=== PATIENT | male | born 1960 | race Caucasian/White ===

== ENCOUNTER 2017-06-24 08:05 | Emergency (ER) | payer MEDICAID, SELFPAY ==
[2017-06-24 08:05] VITALS: BP 159/90; PULSE 99; RESP 16; TEMP 36.7; O2SAT 95; BMI 23.1
--- NOTE | 2017-06-24 08:15 | RAD_ITS ---
STUDY: X-RAY - RIGHT FOOT CLINICAL: Male, 56 years old. Top of foot pain status post trauma. TECHNIQUE: 3 view(s) of the foot. COMPARISON: None. FINDINGS: Normal talus, calcaneus, and tarsal bones. Normal visualized subtalar, talonavicular, calcaneocuboid, tarsal and tarsometatarsal articulations. Normal metatarsi. Normal metatarsophalangeal joint of the great toe. Normal tibial and fibular sesamoid bones. Normal interphalangeal joint of the great toe. Normal phalanges of the great toe. Normal second through fifth metatarsophalangeal joints. Normal interphalangeal joints and phalanges of the lesser toes. The soft tissue structures are unremarkable. RAD/Foot min 3 Views IMPRESSION: Normal x-ray examination of the foot. Electronically Signed: Kali Oleary MD at 8:38 EDT , Service support ,
--- NOTE | 2017-06-24 08:52 | ED.DCSUM_ITS ---
- ER Visit Summary Date of Service: 06/24/17 Chief Complaint: [Injury to right foot] History of Present Illness: The patient is a 56 M [presents to the emergency department after injuring his right foot 3 days ago. Patient states that he was moving a piece of steel in his garage when he dropped it onto his right foot. Patient was wearing tennis shoes at the time and believes the piece of steel weighed about 25 pounds. Patient's had discomfort since that time but today try to go to work and had more discomfort so he presents the emergency department. Patient states that his noticed that the foot was getting red yesterday. Patient's had no fevers.] Physical Examination: [Right foot-patient has some soft tissue swelling diffusely. Patient has an area of skin avulsion/abrasion over the dorsum of the right lateral foot measuring approximately 3 x 5 cm. Patient has diffuse tenderness over the dorsal lateral aspect of the foot. Patient has faint erythema and cellulitis to the dorsum of the foot. Patient also has a superficial abrasion over the dorsum of the fifth toe. There is no lymphangitic streaking noted and the erythema seems to be localized to the foot at this time.] Test Results: [X-rays of the right foot obtained showed no fractures and no evidence of osteomyelitis. No foreign bodies noted in the foot.] Emergency Department Course and Treatment: [Patient was started on Keflex and Bactrim. Patient will be given crutches.] Treatment Plan: [Antibiotics and pain medicine. Patient advised to follow-up with his primary care physician for a wound check in 2-3 days. Patient advised to return if worsening pain increasing redness, fever, or condition should worsen in any way.] Disposition: [Discharged home in stable condition] Impression: [Contusion right foot Skin avulsion/abrasions right foot Cellulitis right foot] This note was generated with [employer] dictation software. It may contain incorrect words, spelling, and punctuation that were not noted in review of the chart prior to signing ED Disposition - Plan for ED Patient: Chief Complaint: Lower Extremity Injury Referrals: Alice Cuellar DO [Primary Care Provider] -
--- NOTE | 2017-06-24 08:52 | ED.DEP ---
ED Disposition - Plan for ED Patient: Chief Complaint: Lower Extremity Injury Instructions: ED Contusion Foot, ED Infec Skin Cellulitis, ED Avulsion Dermal Prescriptions: Hydrocodone Bitart/Apap 5-325 [Hundred 5/325] 1 - 2 tab PO Q4H PRN PRN 3 Days #12 tab PRN Reason: Pain Cephalexin [Keflex] 500 mg PO Q6 #40 cap Smz/Tmp Ds [Bactrim Ds] 2 tab PO BID #28 tab Referrals: Alice Cuellar DO [Primary Care Provider] - 2 Days for wound check
[2017-06-24] MEDS: Cephalexin 250 MG Capsule 500 MG PO (08:55)
[2017-06-24] MEDS: Smz/Tmp Ds Tablet 1 TABLET PO (08:55)
--- NOTE | 2017-06-24 08:55 | DCINST.ED_ITS ---
ED Disposition - Plan for ED Patient: Chief Complaint: Lower Extremity Injury Instructions: ED Contusion Foot, ED Infec Skin Cellulitis, ED Avulsion Dermal Prescriptions: Hydrocodone Bitart/Apap 5-325 [[place] 5/325] 1 - 2 tab PO Q4H PRN PRN 3 Days #12 tab PRN Reason: Pain Cephalexin [Keflex] 500 mg PO Q6 #40 cap Smz/Tmp Ds [Bactrim Ds] 2 tab PO BID #28 tab Referrals: Alice Cuellar DO [Primary Care Provider] - 2 Days for wound check
[2017-06-24] MEDS: Diphth,Pertuss(Acell),Tet Vac 0.5 ML Vial IM (09:03)
== END 2017-06-24 09:35 | disposition home or self-care (01) ==
PROVIDERS: Emergency Provider Emergency Medicine; Family Provider Family Medicine; PCP Family Medicine
DX: S90.31XA Contusion of right foot, initial encounter (principal); L03.115 Cellulitis of right lower limb; W20.8XXA Other cause of strike by thrown, projected or falling object, initial encounter; Y93.89 Activity, other specified; Y92.015 Private garage of single-family (private) house as the place of occurrence of the external cause; Y99.9 Unspecified external cause status; I10 Essential (primary) hypertension; I73.9 Peripheral vascular disease, unspecified; Z87.891 Personal history of nicotine dependence
CPT/HCPCS: 73630; 90715; 99284

== ENCOUNTER 2017-06-27 18:49 | Emergency (ER) | payer MEDICAID, SELFPAY ==
[2017-06-27 18:49] VITALS: BP 157/85; PULSE 83; RESP 16; TEMP 37.7; O2SAT 99; BMI 24.0
--- NOTE | 2017-06-27 19:00 | ED.VISSUMM ---
- ER Visit Summary Date of Service: 06/27/17 Chief Complaint: Evaluation of right foot injury with cellulitis History of Present Illness: The patient is a 56 M who was seen on June 24 for cellulitis dorsum of right foot secondary to skin avulsion. He presents because he was not able to get an appointment to see his PCP, Dr. Alice Cuellar. Therefore, he presents to the emergency department for reevaluation. He denies fever, chills night sweats. He denies progression of the erythema. He has no other complaints. Past medical history of peripheral vascular disease and hypertension. He is a former smoker. Physical Examination: Vital signs are noted. Afebrile. The erythema has improved since the . DP and PT pulses are not palpable. There is an eschar dorsal surface right foot. There is no lymphangitis. There is no popliteal angle lymphadenopathy. Test Results: None Emergency Department Course and Treatment: Patient was instructed to continue what he has been doing and the slight swelling of his foot is secondary to the fact that he is sitting more than normal. Recommended elevating his foot above the level of his heart. Treatment Plan: Continue antibiotics and wound care Disposition: Discharged to home Impression: 1. Skin avulsion dorsum right foot with cellulitis improving 2. History of peripheral vascular disease 3. History of hypertension This note was generated with [employer] dictation software. It may contain incorrect words, spelling, and punctuation that were not noted in review of the chart prior to signing ED Disposition - Plan for ED Patient: Disposition: Home or Assisted Living Chief Complaint: Lower Extremity Injury Instructions: ED Infec Skin Cellulitis, ED Avulsion Dermal Referrals: Alice Cuellar DO [Primary Care Provider] - 3-5 Days
[2017-06-27 19:10] VITALS: BP 143/87; PULSE 101; RESP 18; TEMP 37.2; O2SAT 98
== END 2017-06-27 19:11 | disposition home or self-care (01) ==
PROVIDERS: Emergency Provider Emergency Medicine; Family Provider Family Medicine; PCP Family Medicine
DX: L03.115 Cellulitis of right lower limb (principal); I73.9 Peripheral vascular disease, unspecified; I10 Essential (primary) hypertension; Z87.891 Personal history of nicotine dependence
CPT/HCPCS: 99282

== ENCOUNTER 2018-03-02 13:44 | Emergency (ER) | payer BC, SELFPAY ==
[2018-03-02 13:45] VITALS: BP 143/79; PULSE 108; RESP 14; TEMP 36.7; O2SAT 99; BMI 24.5
--- NOTE | 2018-03-02 13:57 | EKG12_ITS ---
Test Reason : GI BLEED Blood Pressure : / mmHG Vent. Rate : 099 BPM Atrial Rate : 099 BPM P-R Int : 162 ms QRS Dur : 086 ms QT Int : 398 ms P-R-T Axes : 075 068 058 degrees QTc Int : 510 ms Normal sinus rhythm Prolonged QT Abnormal ECG Confirmed by AMANDA DAN, DEYANIRA ([id number]), news copy editor NIRANJAN BEE ([id number]) on 03/04/2018 1:40:59 PM Referred By: ZAIDA Confirmed By:DEYANIRA PATEL MD
[2018-03-02] MEDS: 0.9% Normal Saline 1,000 ML 999 ML IV (14:22)
[2018-03-02] MEDS: Ondansetron 4 MG/2 ML Vial IV ×2 (14:22→16:04)
[2018-03-02 14:29] LABS: Absolute Lymphocyte Count 0.53 X10^3/ul (0.83-4.51); Absolute Neutrophil Count 2.6 X10^3/uL (2.0-7.7); Basophil# 0.01 X10^3/uL; Basophil% 0.3 % (0-1); Differential Indicated SCAN CRITERIA MET; Hematocrit 35.3 % (40-54); Hemoglobin 11.9 g/dl (13.0-16.5); Lymphocyte # 0.53 X10^3/ul (4.0); Lymphocyte % 14.5 % (19-41); Mean Corp Hgb Conc 33.7 g/gl (32-36); Mean Corpuscular Hgb 32.4 pg (27.0-32.0); Mean Corpuscular Volume 96.2 fL (80-94); Monocyte# 0.48 X10^3/uL; Monocyte% 13.2 % (0-10); Neutrophil # 2.63 X10^3/uL (2.7-7.7); POSITIVE COUNT YES; POSITIVE DIFFERENTIAL YES; POSITIVE MORPHOLOGY YES; Platelet Count 43 K/mm3 (150-450); RBC Distribution Width CV 13.4 % (11.6-14.6); RBC Distribution Width SD 47.6 fl (35.1-43.9); Red Blood Count 3.67 M/mm3 (4.6-6.2); White Blood Count 3.7 K/mm3 (4.4-11.0)
--- NOTE | 2018-03-02 14:32 | ED.RN ---
DR TA NOTIFIED OF PLT RESULTS
--- NOTE | 2018-03-02 14:38 | ED.VISSUMM ---
- ER Visit Summary Date of Service: 03/02/18 Chief Complaint: GI bleed History of Present Illness: The patient is a 57 M with vomiting blood that started earlier this morning. He is a heavy drinker, has cirrhosis and low platelets, has a history of perforated ulcer. Patient presents with GI bleed. He is here with his family. He has some epigastric pain but no pain into his back. No lower abdominal pain no hematochezia. He feels slightly nauseated. Physical Examination: He appears chronically ill but does not appear in significant distress Slightly dry mucous membranes, no obvious facial deformity No C-spine tenderness supple neck. Regular rhythm, tachycardic, without any obvious murmurs Course lungs bilaterally speaking in full sentences without any obvious respiratory distress Abdomen soft with slight epigastric tenderness, no guarding or rebound. There is an old healed scar in his epigastric region. Moves all extremities without any difficulty or pain. Skin does not show any obvious rashes or lesions, no trauma. Alert oriented ?3 with no gross focal deficit Emergency Department Course and Treatment: Patient is found to have platelets of 43, he is not currently anemic, he will be transfused platelets. NG tube was ordered, Protonix was ordered, IV fluids were ordered. At this time he has a normal blood pressure and a hemoglobin that is normal. I discussed the patient with Dr. Magali Viveros and since this is an upper GI bleed and there is a possibility of variceal bleeds patient will be transferred since we have no GI coverage. Per patient request I called [facility]. Disposition: Plan is to transfer, his condition is critical Impression: Upper GI bleed Critical care time 30 minutes This note was generated with [employer] dictation software. It may contain incorrect words, spelling, and punctuation that were not noted in review of the chart prior to signing ED Disposition - Plan for ED Patient: Chief Complaint: GI Bleed Referrals: Alice Cuellar DO [Primary Care Provider] -
[2018-03-02 14:41] LABS: ALB/GLOB Ratio 0.8 RATIO (0.9-2.4); AST(SGOT) 128 U/L (15-37); Alanine Aminotransfer ALT/SGPT 61 U/L (16-61); Albumin, Serum 3.1 g/dL (3.2-5.0); Alkaline Phosphatase 90 U/L (45-117); Anion Gap 12 (5-15); BUN 16 mg/dL (7-18); BUN/Creat Ratio 29.4 RATIO (10-20); Calcium,Total 7.5 mg/dL (8.5-10.1); Chloride 106 mmol/L (98-107); Creatinine, Serum 0.54 mg/dL (0.70-1.30); EST Glomerular Filtration Rate 165 mL/min (>60); Est Glom Filt Rate - Afr Amer 199 mL/min (>60); Estimated Creatinine Clearance 160.75 ml/min; Globulin 3.7 g/dL (2.2-4.2); Glucose 117 mg/dL (74-106); Potassium 3.9 mmol/L (3.5-5.1); Protein, Total 6.8 g/dL (6.4-8.2); Sodium Level 140 mmol/L (136-145)
[2018-03-02 14:49] LABS: Platelet Estimate MKD DEC (ADEQ)
[2018-03-02] MEDS: Lidocaine 4% 5 ML Ampul 2 ML INHALATION (15:02)
[2018-03-02 15:03] VITALS: BP 152/78; PULSE 117; RESP 20; O2SAT 99
--- NOTE | 2018-03-02 15:09 | RAD_ITS ---
STUDY: X-RAY - ABDOMEN/PELVIS REASON FOR EXAM: Male, 57 years old. NG tube placement verification. TECHNIQUE: Single AP view of the abdomen / pelvis. COMPARISON: April 26, 2012 FINDINGS: NG tube present with the tip projecting into the left upper quadrant of the abdomen over the fundus of the stomach. There is an unremarkable bowel gas pattern. There is no demonstrated free abdominal air. The visualized liver, spleen and kidneys are grossly normal in size and morphology. Normal soft tissue structures. Normal visualized osseous structures. RAD/Abdomen Single View (Portable) IMPRESSION: Tip of NG tube projected over the fundus of stomach. Electronically Signed: Meño Blanco MD at 16:07 EST , Service support ,
[2018-03-02 15:55] VITALS: BP 149/71; PULSE 124; RESP 16; O2SAT 97
--- NOTE | 2018-03-02 16:00 | NURSING ---
CALLED LAURO JOAQUIN
[2018-03-02] MEDS: Morphine 4 MG/ML Syringe IV (16:04)
[2018-03-02] MEDS: Ceftriaxone 1 GM/50 ML BAG IV (16:06)
[2018-03-03 13:39] LABS: Pathologist Review Reviewed
== END 2018-03-02 16:29 | disposition home or self-care (01) ==
PROVIDERS: Emergency Provider Emergency Medicine; Family Provider Family Medicine; PCP Family Medicine
DX: K92.2 Gastrointestinal hemorrhage, unspecified (principal); R10.9 Unspecified abdominal pain; R11.0 Nausea; Z72.0 Tobacco use; K74.60 Unspecified cirrhosis of liver; D69.6 Thrombocytopenia, unspecified
CPT/HCPCS: 74018; 80053; 80320; 85025; 85730; 86850; 86900; 93005; 96361; 96365; 96375; 96376; 99285; J7030; J7050; A4216; G0480; J2405

== ENCOUNTER 2018-03-20 13:08 | Emergency (ER) | payer BC, SELFPAY ==
[2018-03-20 13:13] VITALS: BP 147/87; PULSE 87; RESP 20; TEMP 37.1; O2SAT 100; BMI 26.8
--- NOTE | 2018-03-20 13:25 | RAD_ITS ---
STUDY: X-RAY CHEST REASON FOR EXAM: Male, 57 years old. Shortness of breath and hemoptysis TECHNIQUE: Single AP portable view of the chest. COMPARISON: None. FINDINGS: The lungs are clear and expanded. There is no demonstrated pleural abnormality. Normal size heart. Normal mediastinum and kelly. Normal visualized pulmonary arteries. Normal visualized aortic arch and descending thoracic aorta. Normal visualized thoracic spine. Normal visualized ribs, clavicles, and shoulders. There is no demonstrated abnormality of the visualized soft tissue structures of the upper abdomen. RAD/Chest 1 View (Portable) IMPRESSION: Normal x-ray examination of the chest. Electronically Signed: Koby Philip DO at 13:47 EST Tel , Service support ,
--- NOTE | 2018-03-20 13:26 | ED.VISSUMM ---
- ER Visit Summary Date of Service: 03/20/18 Chief Complaint: [] Vomiting bright red blood, black tarry stools history of esophageal varices liver cirrhosis History of Present Illness: The patient is a 57 M [] the above history, he indicates he had upper GI bleeding the past from esophageal varices, he was admitted to [facility] a few weeks ago for the above he had what he describes a cautery procedure to control the bleeding he stayed in the hospital for about 2 weeks, he did well was discharged to local prison for a few days where he did well and he was discharged from that prison 2 days ago, today as he was sitting at home he simply began vomiting bright red blood he also notes he has been having dark tarry stools for the last 2 days, he is on iron supplementation, he continues to be quite nauseated no vomiting and he comes in for evaluation, he denies any history of SC PE or DVT he denies being on blood thinners, he does continue to drink alcohol which was the etiology of his cirrhosis but he states he drinks a very little bit he does not withdraw if he stops drinking he is not on aspirin or other blood thinners Physical Examination: [] 140/80 heart rate 80 General, no distress resting comfortably HEENT is generally unremarkable The neck is supple no adenopathy Cardiovascular, regular rate and rhythm Lungs, clear bilateral Abdomen, soft nontender Extremities, no clubbing cyanosis or edema Neurologic, awake alert answering questions appropriately moving all 4 extremities Indicates he is having black tarry stools Test Results: [] Emergency Department Course and Treatment: [] Given his history given his protracted repeated episode of vomiting bright red blood we began screening labs IV fluids, type and screen, he has been instructed that he likely requires transfer to [facility] for further subspecialty management there is a snowstorm currently affecting this region and rail director transfer is limited, we will be speaking with [employer] to see advisability of ground transportation as local paramedics [facility] are not providing transportation because of the above Patient screening labs are generally unremarkable, his current hemoglobin is 9.0 it had been 12.0 in our system last time, chest x-ray is unremarkable he remains hemodynamically stable, we did speak with the transfer line at [facility] they have accepted him in transfer, the local rail director ambulance services are able to transport the patient during this current time. But possibly not later so were trying to expedite his care related to whether, the patient and the agree to transfer Treatment Plan: [] Disposition: [] Transfer to [facility] Impression: [] GI bleed, history of bleeding from esophageal varices, history of alcohol-related cirrhosis This note was generated with [employer] dictation software. It may contain incorrect words, spelling, and punctuation that were not noted in review of the chart prior to signing ED Disposition - Plan for ED Patient: Chief Complaint: GI Bleed Referrals: Alice Cuellar DO [Primary Care Provider] -
[2018-03-20] MEDS: 0.9% Normal Saline 1,000 ML 1000 ML IV (13:29)
--- NOTE | 2018-03-20 13:29 | ED.DCSUM_ITS ---
- ER Visit Summary Date of Service: 03/20/18 Chief Complaint: [] Vomiting bright red blood, black tarry stools history of esophageal varices liver cirrhosis History of Present Illness: The patient is a 57 M [] the above history, he indicates he had upper GI bleeding the past from esophageal varices, he was admitted to [facility] a few weeks ago for the above he had what he describes a cautery procedure to control the bleeding he stayed in the hospital for about 2 weeks, he did well was discharged to local group home for a few days where he did well and he was discharged from that group home 2 days ago, today as he was sitting at home he simply began vomiting bright red blood he also notes he has been having dark tarry stools for the last 2 days, he is on iron supplementation, he continues to be quite nauseated no vomiting and he comes in for evaluation, he denies any history of SC PE or DVT he denies being on blood thinners, he does continue to drink alcohol which was the etiology of his cirrhosis but he states he drinks a very little bit he does not withdraw if he stops drinking he is not on aspirin or other blood thinners Physical Examination: [] 140/80 heart rate 80 General, no distress resting comfortably HEENT is generally unremarkable The neck is supple no adenopathy Cardiovascular, regular rate and rhythm Lungs, clear bilateral Abdomen, soft nontender Extremities, no clubbing cyanosis or edema Neurologic, awake alert answering questions appropriately moving all 4 extremities Indicates he is having black tarry stools Test Results: [] Emergency Department Course and Treatment: [] Given his history given his protracted repeated episode of vomiting bright red blood we began screening labs IV fluids, type and screen, he has been instructed that he likely requires transfer to [facility] for further subspecialty management there is a snowstorm currently affecting this region and conveyor feeder offbearer transfer is limited, we will be speaking with [employer] to see advisability of ground transportation as local paramedics [facility] are not providing transportation because of the above Patient screening labs are generally unremarkable, his current hemoglobin is 9.0 it had been 12.0 in our system last time, chest x-ray is unremarkable he remains hemodynamically stable, we did speak with the transfer line at [facility] they have accepted him in transfer, the local conveyor feeder offbearer ambulance services are able to transport the patient during this current time. But possibly not later so were trying to expedite his care related to whether, the patient and the agree to transfer Treatment Plan: [] Disposition: [] Transfer to [facility] Impression: [] GI bleed, history of bleeding from esophageal varices, history of alcohol-related cirrhosis This note was generated with [employer] dictation software. It may contain incorrect words, spelling, and punctuation that were not noted in review of the chart prior to signing ED Disposition - Plan for ED Patient: Chief Complaint: GI Bleed Referrals: Alice Cuellar DO [Primary Care Provider] -
[2018-03-20 13:44] LABS: Absolute Lymphocyte Count 0.93 X10^3/ul (0.83-4.51); Basophil# 0.02 X10^3/uL; Basophil% 0.4 % (0-1); Eosinophil# 0.01 X10^3/uL; Eosinophils% 0.2 % (0-5); Hematocrit 28.4 % (40-54); Lymphocyte # 0.93 X10^3/ul (4.0); Lymphocyte % 18.3 % (19-41); Mean Corp Hgb Conc 31.7 g/gl (32-36); Mean Corpuscular Volume 97.9 fL (80-94); Mean Platelet Vol. 10.3 fl (6.2-12.0); Monocyte# 1.16 X10^3/uL; Monocyte% 22.8 % (0-10); Neutrophil # 2.95 X10^3/uL (2.7-7.7); Neutrophil % 57.9 % (47-70); Platelet Count 87 K/mm3 (150-450); RBC Distribution Width SD 50.3 fl (35.1-43.9); White Blood Count 5.1 K/mm3 (4.4-11.0)
[2018-03-20 13:49] LABS: POSITIVE COUNT NO; POSITIVE DIFFERENTIAL NO; POSITIVE MORPHOLOGY NO
[2018-03-20] MEDS: Ondansetron 4 MG/2 ML Vial IV (13:50)
[2018-03-20 13:58] LABS: International Normalized Ratio 1.4; Prothrombin Time (Protime)PT. 17.6 SECONDS (11.7-14.9)
[2018-03-20 14:00] LABS: AST(SGOT) 33 U/L (15-37); Alanine Aminotransfer ALT/SGPT 29 U/L (16-61); Albumin, Serum 2.4 g/dL (3.2-5.0); Alkaline Phosphatase 64 U/L (45-117); Anion Gap 8 (5-15); BUN 17 mg/dL (7-18); BUN/Creat Ratio 27.2 RATIO (10-20); Bilirubin, Direct 0.19 mg/dL (0.00-0.30); Calcium,Total 7.3 mg/dL (8.5-10.1); Chloride 108 mmol/L (98-107); Creatinine, Serum 0.63 mg/dL (0.70-1.30); EST Glomerular Filtration Rate 140 mL/min (>60); Est Glom Filt Rate - Afr Amer 170 mL/min (>60); Estimated Creatinine Clearance 137.78 ml/min; Globulin 3.3 g/dL (2.2-4.2); Glucose 126 mg/dL (74-106); Lipase 223 U/L (73-393); Potassium 4.2 mmol/L (3.5-5.1); Protein, Total 5.7 g/dL (6.4-8.2); Sodium Level 141 mmol/L (136-145)
[2018-03-20 14:06] LABS: Lactic Acid 1.6 mmol/L (0.4-2.0)
[2018-03-20 14:36] LABS: Bacteria 0 SEEN /hpf (None Seen); Mucous, Urine 0 SEEN /hpf (<or=2+); Red Blood Cells-Urine 0 SEEN /hpf (0-5); White Blood Cells 0 SEEN /hpf (0-5)
[2018-03-20 14:40] VITALS: BP 130/65; PULSE 92; RESP 20; O2SAT 96
[2018-03-20 14:42] LABS: Color, Urine Yellow (Yellow); Glucose, Dipstick Normal (Normal); Ketone-Dipstick 15 mg/dl (Negative); Leukocyte Esterase-Dipstick Negative /ul (Negative); Nitrite-Dipstick Negative (Negative); Occult Blood-Urine Negative /ul (Negative); Protein-Dipstick Negative (Negative); Urine Bilirubin Dipstick Negative (Negative); Urine Clarity Clear (Clear); Urine Urobilinogen Normal (Normal); Urine pH 6.5 (5.0 - 8.0)
--- NOTE | 2018-03-20 14:48 | ED.RN ---
gave report to trevor miguel at [facility]. Pt is cleared for transport.
[2018-03-20 14:50] LABS: Squamous Epithelial Cells - UA 0-5 SEEN /hpf (0-5)
== END 2018-03-20 14:49 | disposition short-term general hospital (02) ==
PROVIDERS: Emergency Provider Emergency Medicine; Family Provider Family Medicine; PCP Family Medicine
DX: I85.01 Esophageal varices with bleeding (principal); K74.60 Unspecified cirrhosis of liver
CPT/HCPCS: 71045; 80048; 80076; 81001; 83605; 83690; 84484; 85025; 85610; 86850; 86900; 96361; 96374; 96375; 99285; J7030; J2405

== ENCOUNTER → 2018-05-07 08:54 | Outpatient (CLI) | payer BC, SELFPAY ==
[2018-05-07 12:37] LABS: Absolute Lymphocyte Count 1.12 X10^3/ul (0.83-4.51); Absolute Neutrophil Count 4.2 X10^3/uL (2.0-7.7); Basophil# 0.02 X10^3/uL; Basophil% 0.3 % (0-1); Eosinophil# 0.05 X10^3/uL; Eosinophils% 0.8 % (0-5); Hemoglobin 11.3 g/dl (13.0-16.5); Lymphocyte # 1.12 X10^3/ul (4.0); Lymphocyte % 17.3 % (19-41); Mean Corp Hgb Conc 30.5 g/gl (32-36); Mean Corpuscular Hgb 27.4 pg (27.0-32.0); Mean Corpuscular Volume 89.8 fL (80-94); Mean Platelet Vol. 10.7 fl (6.2-12.0); Monocyte# 1.07 X10^3/uL; Monocyte% 16.5 % (0-10); Neutrophil % 64.9 % (47-70); Platelet Count 79 K/mm3 (150-450); RBC Distribution Width CV 16.8 % (11.6-14.6); RBC Distribution Width SD 54.6 fl (35.1-43.9); Red Blood Count 4.12 M/mm3 (4.6-6.2); White Blood Count 6.5 K/mm3 (4.4-11.0)
[2018-05-07 12:43] LABS: POSITIVE COUNT NO; POSITIVE DIFFERENTIAL NO; POSITIVE MORPHOLOGY NO
[2018-05-07 12:52] LABS: AST(SGOT) 29 U/L (15-37); Alanine Aminotransfer ALT/SGPT 21 U/L (16-61); Albumin, Serum 3.2 g/dL (3.2-5.0); Alkaline Phosphatase 93 U/L (45-117); Anion Gap 8 (5-15); BUN 5 mg/dL (7-18); BUN/Creat Ratio 8.6 RATIO (10-20); Bilirubin, Direct 0.18 mg/dL (0.00-0.30); Calcium,Total 8.2 mg/dL (8.5-10.1); Chloride 107 mmol/L (98-107); Creatinine, Serum 0.58 mg/dL (0.70-1.30); EST Glomerular Filtration Rate 153 mL/min (>60); Est Glom Filt Rate - Afr Amer 185 mL/min (>60); Globulin 4.5 g/dL (2.2-4.2); Glucose 118 mg/dL (74-106); Potassium 3.9 mmol/L (3.5-5.1); Protein, Total 7.7 g/dL (6.4-8.2); Sodium Level 141 mmol/L (136-145)
== END ==
PROVIDERS: Family Provider Family Medicine; PCP Family Medicine; Visit Provider Family Medicine
DX: K70.30 Alcoholic cirrhosis of liver without ascites (principal); I85.10 Secondary esophageal varices without bleeding; K21.9 Gastro-esophageal reflux disease without esophagitis
CPT/HCPCS: 36415; 80048; 80076; 85025

== ENCOUNTER 2018-06-01 08:21 | Emergency (ER) | payer BC, SELFPAY ==
[2018-06-01 08:22] VITALS: BP 144/73; PULSE 88; RESP 16; TEMP 36.4; O2SAT 97; BMI 24.4
[2018-06-01 08:37] VITALS: TEMP 36.4
--- NOTE | 2018-06-01 08:40 | VDLE_ITS ---
Reason For Study: LEG SWELLING RIGHT LEFT GSV is normal. GSV is normal. CFV is compressible, spontaneous, phasic, CFV is compressible, spontaneous, phasic, competent and demonstrates normal competent, and demonstrates normal augmentation. augmentation. FV is compressible, spontaneous, phasic, FV is compressible, spontaneous, phasic, competent and demonstrates normal competent and demonstrates normal augmentation. augmentation. POP V is compressible, spontaneous, phasic, POP V is compressible, spontaneous, phasic, competent and demonstrates normal competent and demonstrates normal augmentation. augmentation. T/P Trunk is compressible. T/P Trunk is compressible. PTV is compressible. PTV is compressible. RT PerV is compressible. LT PerV is compressible. Procedure Exam performed portable in ED. A preliminary report was called and/or faxed to Dr. Stevens. Interpretation Summary Deep veins of the lower extremities are bilaterally patent and compressible segmentally. There is no evidence of deep vein thrombosis on either side. Valvular competence appears intact within the proximal deep venous systems bilaterally. The greater saphenous veins appear bilaterally patent and compressible segmentally. Ordering Physician: Kulwant Stevens Referring Physician: Alice Cuellar Performed By: Skye Singh RVT
--- NOTE | 2018-06-01 08:44 | ED.DCSUM_ITS ---
- ER Visit Summary Date of Service: 06/01/18 Chief Complaint: Lower extremity edema and pain History of Present Illness: The patient is a 57 M who presents with pain and swelling in both lower legs that has been getting worse over the past week. Patient describes the pain as burning. Patient states she noted some drainage from his right ankle today. Patient denies any fevers or chills. Patient states the pain is from the knees to his feet. Patient denies any paresthesias or weakness. Patient states nothing seems to make the pain better or worse. Patient denies any chest pain or shortness of breath. Physical Examination: Vital signs are stable. Patient is afebrile. Patient is in no acute distress. Oral mucosa is pink and moist. Neck is supple. Trachea is midline. There is no JVD noted. Heart was regular rate and rhythm. Lungs are clear and equal bilaterally. Abdomen is soft. Bowel sounds are normal. There is some mild epigastric tenderness. Patient states this is chronic from his prior surgery. There is no rebound or guarding noted. Cranial nerves II through XII are intact. There are no focal motor or sensory deficits noted. There is 1+ edema of the lower extremities bilaterally. There is calf tenderness noted bilaterally. Posterior tibial pulses are equal bilateral. Test Results: CBC and basic metabolic profile were obtained and were essentially within normal limits. Venous duplex of the lower extremities was obtained was normal. PA and lateral chest x-rays obtained. There is no acute cardiopulmonary process. BNP was normal. Emergency Department Course and Treatment: Patient was advised of his results. Patient was instructed to keep his legs elevated. Patient was instructed to follow-up with his primary care physician in 5-7 days. Patient understood and was agreeable with the plan. All questions were answered. Disposition: Discharge home Impression: Peripheral edema This note was generated with [employer] dictation software. It may contain incorrect words, spelling, and punctuation that were not noted in review of the chart prior to signing ED Disposition - Plan for ED Patient: Disposition: Home or Assisted Living Diagnosis: Peripheral edema Instructions: ED Leg Swelling Bilateral Referrals: Alice Cuellar DO [Primary Care Provider] - 5-7 Days Additional Instructions: Keep your legs elevated to help with the swelling.
--- NOTE | 2018-06-01 09:04 | RAD_ITS ---
STUDY: X-RAY CHEST REASON FOR EXAM: Male, 57 years old. Hypertension TECHNIQUE: PA and lateral views of the chest. COMPARISON: 03/20/2018 FINDINGS: The lungs are clear and expanded. There is no demonstrated pleural abnormality. Normal size heart. Normal mediastinum and kelly. Normal visualized pulmonary arteries. Normal visualized aortic arch and descending thoracic aorta. Normal visualized thoracic spine. Normal visualized ribs, clavicles, and shoulders. There is no demonstrated abnormality of the visualized soft tissue structures of the upper abdomen. RAD/Chest PA and Lateral IMPRESSION: Normal x-ray examination of the chest. Electronically Signed: Koby Philip DO at 10:06 EDT Tel , Service support ,
[2018-06-01 09:11] LABS: Absolute Lymphocyte Count 1.88 X10^3/ul (0.83-4.51); Absolute Neutrophil Count 1.4 X10^3/uL (2.0-7.7); Basophil# 0.02 X10^3/uL; Basophil% 0.5 % (0-1); Eosinophil# 0.08 X10^3/uL; Hematocrit 39.4 % (40-54); Hemoglobin 13.1 g/dl (13.0-16.5); Lymphocyte # 1.88 X10^3/ul (4.0); Lymphocyte % 47.4 % (19-41); Mean Corp Hgb Conc 33.2 g/gl (32-36); Mean Corpuscular Volume 87.2 fL (80-94); Mean Platelet Vol. 9.4 fl (6.2-12.0); Monocyte# 0.59 X10^3/uL; Monocyte% 14.9 % (0-10); Neutrophil % 35.2 % (47-70); POSITIVE COUNT NO; POSITIVE DIFFERENTIAL NO; POSITIVE MORPHOLOGY NO; Platelet Count 53 K/mm3 (150-450); RBC Distribution Width CV 19.9 % (11.6-14.6); RBC Distribution Width SD 63.7 fl (35.1-43.9); Red Blood Count 4.52 M/mm3 (4.6-6.2)
[2018-06-01 09:21] LABS: Anion Gap 7 (5-15); BUN 8 mg/dL (7-18); BUN/Creat Ratio 11.8 RATIO (10-20); Calcium,Total 8.1 mg/dL (8.5-10.1); Chloride 110 mmol/L (98-107); Creatinine, Serum 0.68 mg/dL (0.70-1.30); EST Glomerular Filtration Rate 128 mL/min (>60); Est Glom Filt Rate - Afr Amer 154 mL/min (>60); Estimated Creatinine Clearance 127.65 ml/min; Glucose 111 mg/dL (74-106); Potassium 3.8 mmol/L (3.5-5.1); Sodium Level 144 mmol/L (136-145)
[2018-06-01 09:27] VITALS: TEMP 36.1
[2018-06-01 09:58] LABS: BNP,B-Type NATRIURETIC PEPTIDE 19.8 pg/mL (0-100)
[2018-06-01 10:42] VITALS: BP 148/75; PULSE 81; RESP 16; RESP 19; O2SAT 99
== END 2018-06-01 10:42 | disposition home or self-care (01) ==
PROVIDERS: Emergency Provider Emergency Medicine; Family Provider Family Medicine; PCP Family Medicine
DX: R60.0 Localized edema (principal); I10 Essential (primary) hypertension
CPT/HCPCS: 71046; 80048; 83880; 85025; 93970; 99285; A4216

== ENCOUNTER 2018-08-20 00:50 | Observation (INO) | payer BC, SELFPAY ==
[2018-08-20] VITALS (14 sets, daily range): BP systolic 119–143; BP diastolic 58–85; PULSE 73–110; RESP 15–22; TEMP 36.5–36.9; O2SAT 94–100; BMI 25.0; BMI 23.8
--- NOTE | 2018-08-20 01:07 | EKG12_ITS ---
Test Reason : CP Blood Pressure : / mmHG Vent. Rate : 110 BPM Atrial Rate : 110 BPM P-R Int : 172 ms QRS Dur : 096 ms QT Int : 360 ms P-R-T Axes : 043 058 050 degrees QTc Int : 487 ms Sinus tachycardia Otherwise normal ECG Confirmed by ONDINA DAN, ROLAND ([id number]), newspaper copy editor STEWART GARIBAY ([id number]) on 08/23/2018 11:46:24 AM Referred By: JAZZ Confirmed By:PILLO NJ MD
--- NOTE | 2018-08-20 01:07 | RAD_ITS ---
HISTORY: CPChest PainRAD - Chest ADDITIONAL HISTORY: None provided. COMPARISON: 06/01/2018 TECHNIQUE: Frontal and lateral chest radiographs. Number of images including paperwork: 3 FINDINGS: LUNGS AND PLEURA: No consolidation, mass or pleural effusion. CARDIAC SILHOUETTE: Unremarkable. MEDIASTINUM AND ALECIA: Unremarkable. UPPER ABDOMEN: Unremarkable. SKELETON AND SOFT TISSUES: No acute findings. OTHER DEVICES AND HARDWARE: Clip projects over the left upper quadrant. RAD/Chest PA and Lateral IMPRESSION: No acute cardiopulmonary abnormality. at 0211 Reported and signed by: Gabriella Cardozo MD Electronically Signed: Gabriella Cardozo MD at 2:11 EDT Tel , Service support ,
[2018-08-20 01:17] LABS: Absolute Lymphocyte Count 1.79 X10^3/ul (0.83-4.51); Absolute Neutrophil Count 1.7 X10^3/uL (2.0-7.7); Basophil# 0.01 X10^3/uL; Basophil% 0.2 % (0-1); Eosinophil# 0.04 X10^3/uL; Eosinophils% 0.9 % (0-5); Hematocrit 39.5 % (40-54); Hemoglobin 14.1 g/dl (13.0-16.5); Lymphocyte # 1.79 X10^3/ul (4.0); Mean Corp Hgb Conc 35.7 g/gl (32-36); Mean Corpuscular Hgb 33.7 pg (27.0-32.0); Mean Corpuscular Volume 94.5 fL (80-94); Mean Platelet Vol. 10.8 fl (6.2-12.0); Monocyte# 0.77 X10^3/uL; Monocyte% 18.1 % (0-10); Neutrophil # 1.65 X10^3/uL (2.7-7.7); Neutrophil % 38.8 % (47-70); POSITIVE COUNT NO; POSITIVE DIFFERENTIAL NO; POSITIVE MORPHOLOGY NO; Platelet Count 56 K/mm3 (150-450); RBC Distribution Width CV 14.5 % (11.6-14.6); RBC Distribution Width SD 49.2 fl (35.1-43.9); Red Blood Count 4.18 M/mm3 (4.6-6.2); White Blood Count 4.3 K/mm3 (4.4-11.0)
[2018-08-20] MEDS: Nitroglycerin Oint 1 INCH PACKET TRANSDERM. (01:31)
[2018-08-20 01:33] LABS: AST(SGOT) 117 U/L (15-37); Alanine Aminotransfer ALT/SGPT 70 U/L (16-61); Albumin, Serum 3.4 g/dL (3.2-5.0); Alkaline Phosphatase 95 U/L (45-117); Anion Gap 9 (5-15); BUN 4 mg/dL (7-18); BUN/Creat Ratio 6.1 RATIO (10-20); Bilirubin, Direct 0.34 mg/dL (0.00-0.30); Calcium,Total 7.9 mg/dL (8.5-10.1); Chloride 105 mmol/L (98-107); Creatinine, Serum 0.65 mg/dL (0.70-1.30); EST Glomerular Filtration Rate 134 mL/min (>60); Est Glom Filt Rate - Afr Amer 162 mL/min (>60); Estimated Creatinine Clearance 137.62 ml/min; Glucose 202 mg/dL (74-106); Potassium 3.4 mmol/L (3.5-5.1); Protein, Total 7.4 g/dL (6.4-8.2); Sodium Level 137 mmol/L (136-145)
[2018-08-20 01:43] LABS: D-Dimer Quantitative (DVT/PE) < 0.27 FEU/ug/m (0.27-0.49)
--- NOTE | 2018-08-20 02:20 | ED.DCSUM_ITS ---
- ER Visit Summary Date of Service: 08/20/18 Chief Complaint: Chest pain History of Present Illness: The patient is a 57 M who presents with chest pain. He has a history of peripheral vascular disease, alcoholic liver cirrhosis with esophageal varices, prior upper GI bleed. He states that he developed pal pitations and chest pain tonight about an hour before presentation. He initially described this pain as stabbing. He took an extra nadolol. He then had a syncopal episode and fell. He states for about 10 minutes afterwards he felt very weak and was unable to get up on his own. He complains of some mild shortness of breath. He continues to have palpitations. He was given aspirin and nitroglycerin by EMS with improvement of his chest pain. He reports that went from a 7 to a 4. He has no history of coronary disease. No history of DVT or pulmonary embolism. He denies any vomiting. Physical Examination: Afebrile vitals normal Moist mucous membranes No distress Heart regular tachycardia, no murmur Lungs are clear Abdomen soft and nontender Alert Test Results: EKG shows sinus rhythm at a rate of 110. Labs notable for white count 4.3, platelets 56, ALT 70, AST 117. Troponin and d-dimer are negative. Chest x-ray shows no acute abnormality. Emergency Department Course and Treatment: Patient's description of chest pain is atypical and that he described as a stabbing he did report improvement with nitroglycerin. Therefore we placed Nitropaste on his chest here. On reevaluation he now complains of only mild tightness. He pain is nothing like what he had earlier which was severe. Patient will be discussed with the hospitalist and admitted for further evaluation. Treatment Plan: [] Disposition: Admit Impression: Chest pain This note was generated with [employer] dictation software. It may contain incorrect words, spelling, and punctuation that were not noted in review of the chart prior to signing ED Disposition - Plan for ED Patient: Referrals: Alice Cuellar DO [Primary Care Provider] -
--- NOTE | 2018-08-20 02:26 | PCM.HP.STD ---
Problem List (1) Chest pain Status: Acute History of Present Illness Date of Admission: 08/20/18 Chief Complaint: chest pain The patient is a 57 year old M with a significant history of PAD; cirrhosis; esophageal varices with bleed; aortic aneurysm rupture with repair; previous history of alcoholism and former smoker who presented to the emergency department with left-sided sharp excruciating chest pain. Because of chest pain patient who had already taken his routine nadolol took another dose of nadolol. He reports that he then felt a squeezing pain in his chest; lost consciousness briefly and could not move. Eventually he gained consciousness and called the paramedics and was brought to the emergency department. He denies any nausea or vomiting. However he reports diaphoresis. He came to the emergency department less than 1 hour after his symptoms started. Patient was given 4 baby aspirins and nitroglycerin that helped with his chest pain. Also patient thinks that his chest pain improved with moving around. He denies any aggravating factor. Because patient felt better after administration of nitroglycerin sublingual, emergency department doctor placed Nitropaste on his chest. Past Medical History Past Medical History (Chronic Problems): Chronic Problems (Last Reviewed 08/20/18 @ 04:51 by Carl Bhagat MD) Benign essential hypertension (Chronic) Obesity (Chronic) History of alcohol abuse (Chronic) History of smoking (Chronic) PVD (peripheral vascular disease) (Chronic) Medical History: Medical History (Last Reviewed 08/20/18 @ 04:51 by Carl Bhagat MD) Liver cirrhosis, alcoholic K70.30 Peripheral arterial disease I73.9 Allergies No Known Allergies Allergy (Verified 08/20/18 00:59) Home Medications: Ambulatory Orders Medication Instructions Recorded Ferrous Sulfate [Iron] 325 mg PO DAILY 03/20/18 Nadolol [Corgard] 20 mg PO DAILY 03/20/18 Pantoprazole Sodium 40 mg PO DAILY 03/20/18 Thiamine HCl [Vitamin B-1] 100 mg PO DAILY 03/20/18 traMADol [Ultram (G)] 50 mg PO Q6H PRN 03/20/18 Multivitamin with Minerals 1 tab PO DAILY 08/20/18 [Multiple Vitamin] Spironolactone 12.5 mg PO DAILY 08/20/18 Surgical History: - - Aortic aneurysm repair Lives: Spouse/ Significant Other Smoking Status: Former smoker Alcohol: Sober - Reportedly his drinks nonalcoholic beers now. - *Family History Maternal History Items: Cancer Paternal History Items: - - Reportedly his father from lupus Review of Systems Constitutional: Denies: Chills, Fever, Weight Change HEENT: Denies: Head Aches, Sinus Congestion, Sinus Drainage Cardiovascular: Reports: Chest Pain, Syncope. Denies: Palpitations Respiratory: Denies: Cough, Shortness of breath at rest, Sputum production Gastrointestinal: Denies: Abdominal Pain, Nausea, Vomiting Genitourinary: Denies: Dysuria Musculoskeletal: Denies: Joint Pain, Joint Tenderness Skin: Denies: Rash, Wounds Neurological: Denies: Numbness, Tingling, Focal weakness Psychiatric: Denies: Anxiety, Depression, Homicidal Ideations, Suicidal Ideations Hematologic/ Lymphatic: Denies: Easy Bruising, Easy Bleeding VTE Information - Inpt Only VTE Present on Admission: No VTE Mechan Device Prophylaxis: SCD's VTE Pharm Prophylaxis ordered?: No Patient Problems: Active and Suspected Problems (Last Reviewed 08/20/18 @ 04:51 by Carl Bhagat MD) Chest pain (Acute) - Physical Exam General: Alert, Oriented x3, Cooperative HEENT: Atraumatic, PERRLA, EOMI, Normocephalic Neck: Supple, No JVD, Negative Carotid Bruits Lungs: Clear to auscultation, Normal air movement Cardiovascular: Regular rate, No murmurs Abdomen: Bowel Sounds Present, Soft, Non Tender Extremities: No edema, Capillary Refill Less than 3 Seconds Skin: - - Cyanotic bilateral legs. Musculoskeletal: No Tenderness to Palpation of Joints or Extremities Neurological: Neuro grossly intact Psych/Mental Status: Normal Affect, Appropriate Vital Signs Temp Pulse Resp BP Pulse Ox 98.0 F 99 22 H 122/77 H 96 08/20/18 00:51 08/20/18 02:26 08/20/18 02:26 08/20/18 02:26 08/20/18 01:46 Oxygen Delivery Method Room Air Weight: 83.8 kg Body Mass Index (BMI) 25.0 Laboratory Tests Past 24 Hrs 08/20/18 08/20/18 08/20/18 00:55 00:55 00:55 WBC 4.3 L RBC 4.18 L Hgb 14.1 Hct 39.5 L MCV 94.5 H MCH 33.7 H MCHC 35.7 RDW 14.5 RDW Differential 49.2 H Plt Count 56 L MPV 10.8 Immature Gran % (Auto) 0.000 Neut % (Auto) 38.8 L Lymph % (Auto) 42.0 H [place] % (Auto) 18.1 H Eos % (Auto) 0.9 Baso % (Auto) 0.2 Absolute Neuts (auto) 1.7 L Absolute Lymphs (auto) 1.79 Total Counted Not Reportable D-Dimer Quant (PE/DVT) < 0.27 L Sodium 137 Potassium 3.4 L Chloride 105 Carbon Dioxide 23.0 Anion Gap 9 BUN 4 L Creatinine 0.65 L Estim Creat Clear Calc 137.62 Est GFR (MDRD) Af Amer 162 Est GFR (MDRD) Non-Af 134 BUN/Creatinine Ratio 6.1 L Glucose 202 H Calcium 7.9 L Total Bilirubin 0.70 Direct Bilirubin 0.34 H AST 117 H ALT 70 H Alkaline Phosphatase 95 Troponin I < 0.015 Total Protein 7.4 Albumin 3.4 Globulin 4.0 Assessment/Plan All Active Problems (Last Reviewed 08/20/18 @ 04:51 by Carl Bhagat MD) Chest pain (Acute) The patient is a 57 year old M with a significant history of PAD; cirrhosis; esophageal varices with bleed; aortic aneurysm rupture with repair; previous history of alcoholism and former smoker who presented to the emergency department with left-sided sharp excruciating chest pain and syncope. Chest pain Admit to a monitored bed on PCU CXR independently reviewed confirms no acute cardiopulmonary process. EKG independently reviewed confirms sinus tachycardia with rates of 110; with QTC prolongation of 487. 03/02/2018: Old records reviewed showed sinus rhythm with QTC prolongation of 510 ASA 81 mg p.o. daily Morphine as needed for pain We will check lipid panel. Statin not started because of liver disease. Serial cardiac enzymes Stat EKG as needed for chest pain Chemical Stress test in the AM if the cardiac enzymes are negative Syncope On telemetry Echocardiogram ordered Orthostatic blood pressure EKG is not impressive Hypokalemia on presentation his potassium was 3.4 Replaced Because of history of alcoholism; and reportedly passing out we will check his magnesium level. History of alcoholism Thiamine continued. Of note patient reports that he is sober at this time. He reports drinking non-alcoholic beer. Elevated Liver Enzymes Liver enzymes on presentation reviewed. Pattern shows alcoholic liver pattern. Senior Account Director Thrombocytopenia Chronic Cirrhosis Aldactone continued PAD Continue outpatient follow up. DVT prophylaxis Patient with chronic thrombocytopenia. SCDs ordered. Code Visit OBSV E&M: [id number] Initial observation care L3
--- NOTE | 2018-08-20 04:01 | EKG12_ITS ---
Test Reason : CP ADMISSION Blood Pressure : / mmHG Vent. Rate : 079 BPM Atrial Rate : 079 BPM P-R Int : 184 ms QRS Dur : 088 ms QT Int : 410 ms P-R-T Axes : 078 073 073 degrees QTc Int : 470 ms Normal sinus rhythm Normal ECG When compared with ECG of 20-AUG-2018 00:55, MANUAL COMPARISON REQUIRED, DATA IS UNCONFIRMED Confirmed by RAE DAN, LAUREEN ([id number]), material expeditor STEWART GARIBAY ([id number]) on 08/24/2018 8:13:23 AM Referred By: FANY Confirmed By:LAUREEN MCBRIDE MD
--- NOTE | 2018-08-20 04:01 | ECHOD_ITS ---
Reason For Study: Syncope Procedure This was a 2D Doppler, Color Flow transthoracic echocardiogram. Exam performed in department. Left Ventricle Normal size and thickness. The estimated ejection fraction is 65 %. Stage 1 diastolic dysfunction. No regional wall motion abnormalities noted. Right Ventricle Normal size and thickness. Normal systolic function. Atria Normal left atrium. Normal right atrium. Normal atrial septum. Mitral Valve Mitral valve not well visualized. Trivial mitral valve insufficiency. Tricuspid Valve Normal tricuspid valve. Trivial tricuspid valve insufficiency. Right ventricular systolic pressure estimated to be 25 mmHg. Aortic Valve Trisinus/trileaflet aortic valve. Mild diffuse aortic valve thickening. Pulmonic Valve Normal pulmonic valve. Great Vessels Normal aortic root. Normal arch. Normal inferior vena cava. Inferior vena cava collapse with sniff. Pericardium/Pleural No pericardial effusion. MMode/2D Measurements & Calculations LVIDd: 4.5 cm IVSd: 1.1 cm Ao root diam: 3.2 cm LVIDs: 2.9 cm LVPWd: 1.1 cm RVDd: 4.0 cm FS: 37.0 % LAV(MOD-bp): 41.2 ml LVAd ap4: 28.2 cm2 SV(MOD-sp4): 59.0 ml LAV(MOD-bp) Indexed: 20.5 ml/m2 EDV(MOD-sp4): 85.6 ml LAV(MOD-sp2): 49.1 ml EDV(sp4-el): 86.6 ml LAV(MOD-sp4): 31.6 ml LVAs ap4: 14.0 cm2 ESV(MOD-sp4): 26.6 ml ESV(sp4-el): 27.3 ml EF(MOD-sp4): 68.9 % EF(sp4-el): 68.5 % SV(sp4-el): 59.3 ml LA A4 area: 13.6 cm2 LA dimension(2D): 3.7 cm RA A4 area: 15.7 cm2 Doppler Measurements & Calculations MV E max kvng: 77.0 cm/sec Lat Peak E' Kvng: 11.7 cm/sec Med Peak E' Kvng: 6.1 cm/sec MV A max kvng: 82.7 cm/sec E/E' lat: 6.6 E/E' med: 12.7 MV E/A: 0.93 Ao V2 max: 187.6 cm/sec LV V1 max: 131.6 cm/sec PA V2 max: 128.3 cm/sec Ao max P.1 mmHg LV V1 max P.9 mmHg Ao V2 mean: 123.0 cm/sec Ao mean P.7 mmHg Ao V2 VTI: 34.6 cm TR max kvng: 222.1 cm/sec TR max P.7 mmHg Interpretation Summary The estimated ejection fraction is 65 %. Stage 1 diastolic dysfunction. Trivial mitral valve insufficiency. Trivial tricuspid valve insufficiency. Right ventricular systolic pressure estimated to be 25 mmHg. There is no comparison study available. Ordering Physician: Carl Bhagat Referring Physician: Alice Cuellar Performed By: Faina Anderson, BRUNA, RVT
[2018-08-20] MEDS: Aspirin E.C. 81 MG Tablet PO ×2 (05:49→09:32)
[2018-08-20] MEDS: Pantoprazole Sodium 40 MG Tablet PO (09:32)
[2018-08-20] MEDS: Multivitamins,Ther W-Minerals Tablet 1 TABLET PO (09:32)
[2018-08-20] MEDS: Spironolactone 25 MG Tablet 12.5 MG PO (09:32)
[2018-08-20] MEDS: Thiamine Hydrochloride 100 MG Tablet PO (09:33)
[2018-08-20] MEDS: Ferrous Sulfate 325 MG Tablet PO (09:33)
[2018-08-20 10:05] LABS: Absolute Lymphocyte Count 1.17 X10^3/ul (0.83-4.51); Absolute Neutrophil Count 1.5 X10^3/uL (2.0-7.7); Basophil# 0.01 X10^3/uL; Basophil% 0.3 % (0-1); Eosinophil# 0.04 X10^3/uL; Eosinophils% 1.1 % (0-5); Hematocrit 39.8 % (40-54); Hemoglobin 13.7 g/dl (13.0-16.5); Lymphocyte # 1.17 X10^3/ul (4.0); Lymphocyte % 33.4 % (19-41); Mean Corp Hgb Conc 34.4 g/gl (32-36); Mean Corpuscular Hgb 32.9 pg (27.0-32.0); Mean Corpuscular Volume 95.7 fL (80-94); Monocyte# 0.77 X10^3/uL; Neutrophil % 42.9 % (47-70); RBC Distribution Width CV 14.9 % (11.6-14.6); RBC Distribution Width SD 51.5 fl (35.1-43.9); Red Blood Count 4.16 M/mm3 (4.6-6.2); White Blood Count 3.5 K/mm3 (4.4-11.0)
[2018-08-20 10:07] LABS: International Normalized Ratio 1.2; Prothrombin Time (Protime)PT. 15.4 SECONDS (11.7-14.9)
[2018-08-20 10:08] LABS: Partial Thromboplast Time 34.9 Seconds (24.1-36.2)
[2018-08-20 10:09] LABS: POSITIVE COUNT YES; POSITIVE DIFFERENTIAL NO; POSITIVE MORPHOLOGY NO; Platelet Count 45 K/mm3 (150-450)
[2018-08-20 10:10] LABS: Differential Indicated SCAN CRITERIA MET
[2018-08-20 10:24] LABS: Anion Gap 4 (5-15); BUN 4 mg/dL (7-18); BUN/Creat Ratio 6.5 RATIO (10-20); Calcium,Total 8.1 mg/dL (8.5-10.1); Chloride 109 mmol/L (98-107); Cholesterol 102 mg/dL (200); Creatinine, Serum 0.61 mg/dL (0.70-1.30); EST Glomerular Filtration Rate 144 mL/min (>60); Est Glom Filt Rate - Afr Amer 174 mL/min (>60); Estimated Creatinine Clearance 146.65 ml/min; Glucose 96 mg/dL (74-106); High Density Lipoprotein 38 mg/dL; Magnesium 1.6 mg/dL (1.6-2.6); Potassium 4.2 mmol/L (3.5-5.1); Sodium Level 141 mmol/L (136-145); Triglycerides 102 mg/dL; Very Low Density Lipoprotein 20 mg/dL (5-40)
--- NOTE | 2018-08-20 11:12 | PN_ITS ---
Patient Problems: Active and Suspected Problems (Last Reviewed 08/20/18 @ 04:51 by Carl Bhagat MD) Chest pain (Acute) Subjective: The patient is a 57-year-old male with a past medical history of hypertension, former alcohol abuse, cirrhosis, esophageal varices, aortic aneurysm rupture with repair, former tobacco dependence and peripheral vascular disease who presented to the emergency department at [facility] on 08/20/2018 complaining of sharp left-sided chest pain. He took a second dose of Naldolol and had a syncopal episode. Vital signs at presentation to the emergency department were temperature 98, pulse rate 110, blood pressure 143/79, respiratory rate 16 and pulse ox was 94 to 96% on room air. White blood cell count was low at 4.3 with 42% lymphocytes. Hemoglobin was 14.1 and platelets were low at 56,000. He is chronically thrombocytopenic secondary to cirrhosis. PT was 15.4. D-dimer was within normal limits. Potassium was low at 3.4. BUN was 4 with a creatinine of 0.65. Random blood sugar was 202. Bilirubin and alkaline phosphatase were within normal limits but the AST was elevated at 117 and the ALT was 70. Troponin was less than 0.015. Chest x-ray showed no infiltrates, pleural effusions or pulmonary vascular congestion. EKG shows ST with QT prolongation and no ST or T wave changes that would be consistent with ischemia. - Physical Exam Vital Signs Temp Pulse Resp BP Pulse Ox 98.4 F 73 15 127/58 H 97 08/20/18 09:19 08/20/18 09:31 08/20/18 09:19 08/20/18 09:19 08/20/18 09:19 Oxygen Flow Rate (L/min) 2 Oxygen Delivery Method Nasal Cannula Weight: 175 lb 11.335 oz Body Mass Index (BMI) 23.8 Orthostatic Vital Signs Start: 08/20/18 05:50 Freq: q24h Status: Active Protocol: Activity Type Activity Date Activity User E-Sign Co-Sign Detail Recorded Client Recorded Date Recorded By Document 08/20/18 05:50 AR [id number] 08/20/18 05:58 AR 08/20/18 05:50 Orthostatic Vitals Standing -Blood Pressure (90/60-120/80 mm Hg) 128/71 H -Extremity Use Right Arm -Pulse Rate (60-100 beats/min) 80 Sitting -Blood Pressure (90/60-120/80 mm Hg) 141/81 H -Extremity Use Right Arm -Pulse Rate (60-100 beats/min) 74 Lying -Blood Pressure (90/60-120/80 mm Hg) 135/85 H -Extremity Use Right Arm -Pulse Rate (60-100 beats/min) 86 Laboratory Tests Past 24 Hrs 08/20/18 08/20/18 08/20/18 00:55 00:55 00:55 WBC 4.3 L RBC 4.18 L Hgb 14.1 Hct 39.5 L MCV 94.5 H MCH 33.7 H MCHC 35.7 RDW 14.5 RDW Differential 49.2 H Plt Count 56 L MPV 10.8 Immature Gran % (Auto) 0.000 Neut % (Auto) 38.8 L Lymph % (Auto) 42.0 H [place] % (Auto) 18.1 H Eos % (Auto) 0.9 Baso % (Auto) 0.2 Absolute Neuts (auto) 1.7 L Absolute Lymphs (auto) 1.79 Total Counted Not Reportable Differential Comment Diff Path Review PT INR APTT D-Dimer Quant (PE/DVT) < 0.27 L Sodium 137 Potassium 3.4 L Chloride 105 Carbon Dioxide 23.0 Anion Gap 9 BUN 4 L Creatinine 0.65 L Estim Creat Clear Calc 137.62 Est GFR (MDRD) Af Amer 162 Est GFR (MDRD) Non-Af 134 BUN/Creatinine Ratio 6.1 L Glucose 202 H Calcium 7.9 L Magnesium Total Bilirubin 0.70 Direct Bilirubin 0.34 H AST 117 H ALT 70 H Alkaline Phosphatase 95 Troponin I < 0.015 Total Protein 7.4 Albumin 3.4 Globulin 4.0 Triglycerides Cholesterol LDL Cholesterol VLDL Cholesterol HDL Cholesterol 08/20/18 08/20/18 08/20/18 03:54 09:35 09:35 WBC 3.5 L RBC 4.16 L Hgb 13.7 Hct 39.8 L MCV 95.7 H MCH 32.9 H MCHC 34.4 RDW 14.9 H RDW Differential 51.5 H Plt Count 45 L* MPV 10.0 Immature Gran % (Auto) 0.300 Neut % (Auto) 42.9 L Lymph % (Auto) 33.4 [place] % (Auto) 22.0 H Eos % (Auto) 1.1 Baso % (Auto) 0.3 Absolute Neuts (auto) 1.5 L Absolute Lymphs (auto) 1.17 Total Counted Not Reportable Differential Comment COMMENT Diff Path Review May foll PT INR APTT D-Dimer Quant (PE/DVT) Sodium 141 Potassium 4.2 Chloride 109 H Carbon Dioxide 28.0 Anion Gap 4 L BUN 4 L Creatinine 0.61 L Estim Creat Clear Calc 146.65 Est GFR (MDRD) Af Amer 174 Est GFR (MDRD) Non-Af 144 BUN/Creatinine Ratio 6.5 L Glucose 96 Calcium 8.1 L Magnesium 1.6 Total Bilirubin Direct Bilirubin AST ALT Alkaline Phosphatase Troponin I < 0.015 < 0.015 Total Protein Albumin Globulin Triglycerides 102 Cholesterol 102 LDL Cholesterol 44 VLDL Cholesterol 20 HDL Cholesterol 38 L 08/20/18 09:35 WBC RBC Hgb Hct MCV MCH MCHC RDW RDW Differential Plt Count MPV Immature Gran % (Auto) Neut % (Auto) Lymph % (Auto) [place] % (Auto) Eos % (Auto) Baso % (Auto) Absolute Neuts (auto) Absolute Lymphs (auto) Total Counted Differential Comment Diff Path Review PT 15.4 H INR 1.2 APTT 34.9 D-Dimer Quant (PE/DVT) Sodium Potassium Chloride Carbon Dioxide Anion Gap BUN Creatinine Estim Creat Clear Calc Est GFR (MDRD) Af Amer Est GFR (MDRD) Non-Af BUN/Creatinine Ratio Glucose Calcium Magnesium Total Bilirubin Direct Bilirubin AST ALT Alkaline Phosphatase Troponin I Total Protein Albumin Globulin Triglycerides Cholesterol LDL Cholesterol VLDL Cholesterol HDL Cholesterol Medical Necessity - Tobacco Use Smoking Status: Former smoker Assessment/Plan All Active Problems (Last Reviewed 08/20/18 @ 04:51 by Carl Bhagat MD) Chest pain (Acute)
--- NOTE | 2018-08-20 13:38 | STRESSREP ---
Stress Test Report Date: August 20, 2018 Procedure: Pharmacologic stress nuclear imaging study Indications: Chest pain Consent: Per the patient Procedure: The patient underwent pharmacologic (Regadenoson) evaluation with a peak heart rate of 107 beats per minute (65 %predicted maximal heart rate) and a peak blood pressure of 130/82 mmHg. The baseline ECG demonstrated normal sinus rhythm no significant ST-T changes. EKG during lexiscan infusion revealed no significant change from baseline. EKG post infusion revealed no significant change from baseline [There were no cardiac dysrhythmias pretest, during pharmacologic infusion, or recovery]. [There was no complaint of chest discomfort during pharmacologic infusion or recovery]. The examination was discontinued secondary to completion of protocol. Impression: 1. Lexiscan stress test test is negative for Lexiscan infusion induced EKG changes of ischemia. 2. Lexiscan stress test test is negative for Lexiscan infusion induced chest pain. 3. Results of the nuclear portion of the test is as below Myocardial perfusion imaging study: Technique: The patient was injected with 11.1 millicuries of technetium 99m Cardiolite and subsequently rest SPECT Cardiolite nuclear imaging was obtained in the horizontal long, vertical long, and short axis views. The patient underwent pharmacologic (Regadenoson) evaluation. Please see above for details. The patient was injected with 33.1 millicuries of technetium 99m Cardiolite and subsequently stress SPECT Cardiolite nuclear imaging was obtained in the horizontal long, vertical long, and short axis views. A gated Cardiolite study at peak stress was obtained. Interpretation: Rest and stress SPECT Cardiolite nuclear imaging status post realignment, normalization, and attenuation correction demonstrate normal myocardial radioisotope uptake in the rest and stress images. Gated images reveal no significant regional wall motion abnormalities. The reported LVEF is 69%. Impression: 1. There is no evidence of significant ischemia or infarction. 2. Estimated ejection fraction is 69%. This note was generated with [employer] software. It may contain incorrect words, spelling, and punctuation that were not noted in checking the note before signing.
[2018-08-20] MEDS: Magnesium Oxide 400 MG Tablet PO (15:23)
--- NOTE | 2018-08-20 17:40 | PCM.DC ---
- Discharge Diagnoses Current Active Problems: Current Active and Chronic Problems (Last Reviewed 08/20/18 @ 04:51 by Carl Bhagat MD) Chest pain (Acute) You will use the following diet at home:: Other - Resume previous diet Your food should be the consistency of: Regular Your liquids should be the consistency of: Regular/Thin Discharge Activity: Return to Normal Activity Call your doctor if you observe: Fever of 101 or Higher, Shortness of breath, Fainting spells, Swelling in the ankles, Chest pain, - - vomiting blood, blood from the nose, mouth, anus or penis Additional Instructions: The stress test was negative. Your heart squeezes normally and there is no indication that you have significant coronary artery disease. There was no problem with the rhythm of the heart. The potassium was low at admission to the hospital and the magnesium is low as well. I have given you prescriptions to supplement both of these. The combination of a low magnesium and a low potassium can sometimes cause problems with the rhythm of your heart which may have happened before you came in and caused the chest pain. Pending Tests on Discharge: none Allergies/Adverse Reactions: Allergies No Known Allergies Allergy (Verified 08/20/18 00:59) Medications to take at Discharge Ferrous Sulfate [Iron] 325 mg PO DAILY 03/20/18 Nadolol [Corgard (Beta Rey)] 20 mg PO DAILY 03/20/18 Pantoprazole Sodium 40 mg PO DAILY 03/20/18 Thiamine HCl [Vitamin B-1] 100 mg PO DAILY 03/20/18 traMADol [Ultram] 50 mg PO Q6H PRN 03/20/18 Magnesium Oxide [Mag-Ox 400] 400 mg PO DAILYCM #30 tab 08/20/18 Multivitamin with Minerals [Multiple Vitamin] 1 tab PO DAILY 08/20/18 Potassium Chloride [Klor-Con 10] 10 meq PO DAILY #30 tablet.er 08/20/18 Spironolactone 12.5 mg PO DAILY 08/20/18 The following prescriptions were given: Potassium Chloride [Klor-Con 10] 10 meq PO DAILY #30 tablet.er Transmission Status: Pending to [facility] #30 Magnesium Oxide [Mag-Ox 400] 400 mg PO DAILYCM #30 tab Transmission Status: Pending to [facility] #30 Primary Care Physician: Alice Cuellar DO [Primary Care Provider] - Please follow up with your Primary Care Physician in: 5-7 days Test Results: Test results from this visit will be discussed in further detail at your follow-up appointment, if applicable. Proposed Discharge Date: 08/20/18
--- NOTE | 2018-08-20 17:48 | PCM.DC.SUM ---
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 at 0211 Reported and signed by: Gabriella Cardozo MD Electronically Signed: Gabriella Cardozo MD at 2:11 EDT Tel , Service support , Laboratory Results - last 24 hr 08/20/18 08/20/18 08/20/18 00:55 00:55 00:55 WBC 4.3 L RBC 4.18 L Hgb 14.1 Hct 39.5 L MCV 94.5 H MCH 33.7 H MCHC 35.7 RDW 14.5 RDW Differential 49.2 H Plt Count 56 L MPV 10.8 Immature Gran % (Auto) 0.000 Neut % (Auto) 38.8 L Lymph % (Auto) 42.0 H Ocean % (Auto) 18.1 H Eos % (Auto) 0.9 Baso % (Auto) 0.2 Absolute Neuts (auto) 1.7 L Absolute Lymphs (auto) 1.79 Total Counted Not Reportable Differential Comment Diff Path Review PT INR APTT D-Dimer Quant (PE/DVT) < 0.27 L Sodium 137 Potassium 3.4 L Chloride 105 Carbon Dioxide 23.0 Anion Gap 9 BUN 4 L Creatinine 0.65 L Estim Creat Clear Calc 137.62 Est GFR (MDRD) Af Amer 162 Est GFR (MDRD) Non-Af 134 BUN/Creatinine Ratio 6.1 L Glucose 202 H Calcium 7.9 L Magnesium Total Bilirubin 0.70 Direct Bilirubin 0.34 H AST 117 H ALT 70 H Alkaline Phosphatase 95 Troponin I < 0.015 Total Protein 7.4 Albumin 3.4 Globulin 4.0 Triglycerides Cholesterol LDL Cholesterol VLDL Cholesterol HDL Cholesterol 08/20/18 08/20/18 08/20/18 03:54 09:35 09:35 WBC 3.5 L RBC 4.16 L Hgb 13.7 Hct 39.8 L MCV 95.7 H MCH 32.9 H MCHC 34.4 RDW 14.9 H RDW Differential 51.5 H Plt Count 45 L* MPV 10.0 Immature Gran % (Auto) 0.300 Neut % (Auto) 42.9 L Lymph % (Auto) 33.4 Ocean % (Auto) 22.0 H Eos % (Auto) 1.1 Baso % (Auto) 0.3 Absolute Neuts (auto) 1.5 L Absolute Lymphs (auto) 1.17 Total Counted Not Reportable Differential Comment COMMENT Diff Path Review May foll PT INR APTT D-Dimer Quant (PE/DVT) Sodium 141 Potassium 4.2 Chloride 109 H Carbon Dioxide 28.0 Anion Gap 4 L BUN 4 L Creatinine 0.61 L Estim Creat Clear Calc 146.65 Est GFR (MDRD) Af Amer 174 Est GFR (MDRD) Non-Af 144 BUN/Creatinine Ratio 6.5 L Glucose 96 Calcium 8.1 L Magnesium 1.6 Total Bilirubin Direct Bilirubin AST ALT Alkaline Phosphatase Troponin I < 0.015 < 0.015 Total Protein Albumin Globulin Triglycerides 102 Cholesterol 102 LDL Cholesterol 44 VLDL Cholesterol 20 HDL Cholesterol 38 L 08/20/18 09:35 WBC RBC Hgb Hct MCV MCH MCHC RDW RDW Differential Plt Count MPV Immature Gran % (Auto) Neut % (Auto) Lymph % (Auto) Ocean % (Auto) Eos % (Auto) Baso % (Auto) Absolute Neuts (auto) Absolute Lymphs (auto) Total Counted Differential Comment Diff Path Review PT 15.4 H INR 1.2 APTT 34.9 D-Dimer Quant (PE/DVT) Sodium Potassium Chloride Carbon Dioxide Anion Gap BUN Creatinine Estim Creat Clear Calc Est GFR (MDRD) Af Amer Est GFR (MDRD) Non-Af BUN/Creatinine Ratio Glucose Calcium Magnesium Total Bilirubin Direct Bilirubin AST ALT Alkaline Phosphatase Troponin I Total Protein Albumin Globulin Triglycerides Cholesterol LDL Cholesterol VLDL Cholesterol HDL Cholesterol none Operations: None Procedures: Stress test - Impression: 1. There is no evidence of significant ischemia or infarction. 2. Estimated ejection fraction is 69%. Summary of Care Provided: The patient is a 57-year-old male with a past medical history of hypertension, former alcohol abuse, cirrhosis, esophageal varices, aortic aneurysm rupture with repair, former tobacco dependence and peripheral vascular disease who presented to the emergency department at [facility] on 08/20/2018 complaining of sharp left-sided chest pain. He took a second dose of Naldolol and had a syncopal episode. Vital signs at presentation to the emergency department were temperature 98, pulse rate 110, blood pressure 143/79, respiratory rate 16 and pulse ox was 94 to 96% on room air. White blood cell count was low at 4.3 with 42% lymphocytes. It has been low in the past. Hemoglobin was 14.1 and platelets were low at 56,000. He is chronically thrombocytopenic secondary to cirrhosis. PT was 15.4. D-dimer was within normal limits. Potassium was low at 3.4. Mag is low at 1.6. BUN was 4 with a creatinine of 0.65. Random blood sugar was 202. Bilirubin and alkaline phosphatase were within normal limits but the AST was elevated at 117 and the ALT was 70. Troponin was less than 0.015. Chest x-ray showed no infiltrates, pleural effusions or pulmonary vascular congestion. EKG showed ST with QT prolongation (likely due to hypokalemia and hypomagnesemia) and no ST or T wave changes that would be consistent with ischemia. He was admitted to a monitored bed on the progressive care unit and serial cardiac enzymes were obtained. The serial cardiac enzymes were negative. An echocardiogram was obtained which showed stage I diastolic dysfunction, an ejection fraction of 65% with no wall motion abnormality. Trivial mitral valve and trivial tricuspid valve insufficiency. Right ventricular systolic pressure was estimated at 25. A chemical nuclear stress test was done on 08/20/2018 and showed no evidence of significant ischemia or infarction. The gated nuclear ejection fraction was 69%. Telemetry showed normal sinus rhythm with no significant ectopy. EKG on the morning of discharged showed normal sinus rhythm with no suspicious ST or T wave changes. The QT interval decreased with potassium supplementation. He was discharged home with prescriptions for potassium and magnesium and will follow up with Dr. Cuellar in 1 week to recheck the BMP and mag. PHYSICAL EXAM: GENERAL: alert, oriented X 3, Cooperative, NAD ORAL: moist mucosa, no mucosal lesions NECK: No JVD, supple, trachea midline LUNGS: CTA, symmetric chest expansion HEART: RRR, Normal S1 and S2, no rub, no gallop ABDOMEN: soft, NT, ND, BS present, no guarding with palpation EXTREMITIES: no edema, no cyanosis, no calf tenderness SKIN: No rashes, no breakdown, he has numerous areas of ecchymosis on the extremities NEUROLOGIC: no focal neurologic deficits PSYCH: appropriate, normal affect, pleasant This note was generated with [employer] dictation software. It may contain incorrect words, spelling, and punctuation that were not noted in checking the note before signing. Patient Problems: Active and Suspected Problems (Last Reviewed 08/20/18 @ 04:51 by Carl Bhagat MD) Hypomagnesemia (Acute) Hypokalemia (Acute) Chest pain (Acute) - Physical Exam Vital Signs Temp Pulse Resp BP Pulse Ox 97.9 F 90 15 135/70 H 98 08/20/18 15:15 08/20/18 15:15 08/20/18 15:15 08/20/18 15:15 08/20/18 15:15 Oxygen Flow Rate (L/min) 2 Oxygen Delivery Method Room Air Weight: 175 lb 11.335 oz Body Mass Index (BMI) 23.8 Orthostatic Vital Signs Start: 08/20/18 05:50 Freq: q24h Status: Active Protocol: Activity Type Activity Date Activity User E-Sign Co-Sign Detail Recorded Client Recorded Date Recorded By Document 08/20/18 05:50 AR [id number] 08/20/18 05:58 AR 08/20/18 05:50 Orthostatic Vitals Standing -Blood Pressure (90/60-120/80 mm Hg) 128/71 H -Extremity Use Right Arm -Pulse Rate (60-100 beats/min) 80 Sitting -Blood Pressure (90/60-120/80 mm Hg) 141/81 H -Extremity Use Right Arm -Pulse Rate (60-100 beats/min) 74 Lying -Blood Pressure (90/60-120/80 mm Hg) 135/85 H -Extremity Use Right Arm -Pulse Rate (60-100 beats/min) 86 Intake and Output for Last 24 Hours 08/18/18 08/19/18 08/20/18 23:59 23:59 23:59 Intake Total 200 / 200 Balance 200 / 200 Laboratory Tests Past 24 Hrs 08/20/18 08/20/18 08/20/18 00:55 00:55 00:55 WBC 4.3 L RBC 4.18 L Hgb 14.1 Hct 39.5 L MCV 94.5 H MCH 33.7 H MCHC 35.7 RDW 14.5 RDW Differential 49.2 H Plt Count 56 L MPV 10.8 Immature Gran % (Auto) 0.000 Neut % (Auto) 38.8 L Lymph % (Auto) 42.0 H Ocean % (Auto) 18.1 H Eos % (Auto) 0.9 Baso % (Auto) 0.2 Absolute Neuts (auto) 1.7 L Absolute Lymphs (auto) 1.79 Total Counted Not Reportable Differential Comment Diff Path Review PT INR APTT D-Dimer Quant (PE/DVT) < 0.27 L Sodium 137 Potassium 3.4 L Chloride 105 Carbon Dioxide 23.0 Anion Gap 9 BUN 4 L Creatinine 0.65 L Estim Creat Clear Calc 137.62 Est GFR (MDRD) Af Amer 162 Est GFR (MDRD) Non-Af 134 BUN/Creatinine Ratio 6.1 L Glucose 202 H Calcium 7.9 L Magnesium Total Bilirubin 0.70 Direct Bilirubin 0.34 H AST 117 H ALT 70 H Alkaline Phosphatase 95 Troponin I < 0.015 Total Protein 7.4 Albumin 3.4 Globulin 4.0 Triglycerides Cholesterol LDL Cholesterol VLDL Cholesterol HDL Cholesterol 08/20/18 08/20/18 08/20/18 03:54 09:35 09:35 WBC 3.5 L RBC 4.16 L Hgb 13.7 Hct 39.8 L MCV 95.7 H MCH 32.9 H MCHC 34.4 RDW 14.9 H RDW Differential 51.5 H Plt Count 45 L* MPV 10.0 Immature Gran % (Auto) 0.300 Neut % (Auto) 42.9 L Lymph % (Auto) 33.4 Ocean % (Auto) 22.0 H Eos % (Auto) 1.1 Baso % (Auto) 0.3 Absolute Neuts (auto) 1.5 L Absolute Lymphs (auto) 1.17 Total Counted Not Reportable Differential Comment COMMENT Diff Path Review May foll PT INR APTT D-Dimer Quant (PE/DVT) Sodium 141 Potassium 4.2 Chloride 109 H Carbon Dioxide 28.0 Anion Gap 4 L BUN 4 L Creatinine 0.61 L Estim Creat Clear Calc 146.65 Est GFR (MDRD) Af Amer 174 Est GFR (MDRD) Non-Af 144 BUN/Creatinine Ratio 6.5 L Glucose 96 Calcium 8.1 L Magnesium 1.6 Total Bilirubin Direct Bilirubin AST ALT Alkaline Phosphatase Troponin I < 0.015 < 0.015 Total Protein Albumin Globulin Triglycerides 102 Cholesterol 102 LDL Cholesterol 44 VLDL Cholesterol 20 HDL Cholesterol 38 L 08/20/18 09:35 WBC RBC Hgb Hct MCV MCH MCHC RDW RDW Differential Plt Count MPV Immature Gran % (Auto) Neut % (Auto) Lymph % (Auto) Ocean % (Auto) Eos % (Auto) Baso % (Auto) Absolute Neuts (auto) Absolute Lymphs (auto) Total Counted Differential Comment Diff Path Review PT 15.4 H INR 1.2 APTT 34.9 D-Dimer Quant (PE/DVT) Sodium Potassium Chloride Carbon Dioxide Anion Gap BUN Creatinine Estim Creat Clear Calc Est GFR (MDRD) Af Amer Est GFR (MDRD) Non-Af BUN/Creatinine Ratio Glucose Calcium Magnesium Total Bilirubin Direct Bilirubin AST ALT Alkaline Phosphatase Troponin I Total Protein Albumin Globulin Triglycerides Cholesterol LDL Cholesterol VLDL Cholesterol HDL Cholesterol Discharge Activity: Return to Normal Activity Call your doctor if you observe: Fever of 101 or Higher, Shortness of breath, Fainting spells, Swelling in the ankles, Chest pain, - - vomiting blood, blood from the nose, mouth, anus or penis Home Medications: Medications to take at Discharge Ferrous Sulfate [Iron] 325 mg PO DAILY 03/20/18 Nadolol [Corgard (Beta Rey)] 20 mg PO DAILY 03/20/18 Pantoprazole Sodium 40 mg PO DAILY 03/20/18 Thiamine HCl [Vitamin B-1] 100 mg PO DAILY 03/20/18 traMADol [Ultram] 50 mg PO Q6H PRN 03/20/18 Magnesium Oxide [Mag-Ox 400] 400 mg PO DAILYCM #30 tab 08/20/18 Multivitamin with Minerals [Multiple Vitamin] 1 tab PO DAILY 08/20/18 Potassium Chloride [Klor-Con 10] 10 meq PO DAILY #30 tablet.er 08/20/18 Spironolactone 12.5 mg PO DAILY 08/20/18 Following Prescrptions Were Given to Patient: Potassium Chloride [Klor-Con 10] 10 meq PO DAILY #30 tablet.er Transmission Status: Pending to [facility] Magnesium Oxide [Mag-Ox 400] 400 mg PO DAILYCM #30 tab Transmission Status: Pending to [facility]30 Primary Care Physician: Alice Cuellar DO [Primary Care Provider] - Please follow up with your Primary Care Physician in: 5-7 days Disposition: Home Minutes spent on discharge:: 30 Patient Condition:: Good Medical Necessity - Tobacco Use Smoking Status: Former smoker Tobacco Use: Non-smoker Meaningful Use Info Meaningful Use Diagnoses (Choose all that apply): None applicable Code Visit OBSV E&M: 87892 Observation care discharge
[2018-08-23 14:21] LABS: Pathologist Review Reviewed
== END 2018-08-20 17:47 | disposition home or self-care (01) ==
LOC: ED 02:19 → PCU 03:02
PROVIDERS: Admitting Provider Hospitalist; Emergency Provider Emergency Medicine; Family Provider Family Medicine; PCP Family Medicine; Visit Provider Internal Medicine
DX: R07.89 Other chest pain (principal); I73.9 Peripheral vascular disease, unspecified; R00.2 Palpitations; E87.6 Hypokalemia; E83.42 Hypomagnesemia; I45.81 Long QT syndrome; K70.30 Alcoholic cirrhosis of liver without ascites; I85.10 Secondary esophageal varices without bleeding; R55 Syncope and collapse; R06.02 Shortness of breath; I10 Essential (primary) hypertension; F10.21 Alcohol dependence, in remission; Z87.891 Personal history of nicotine dependence; D69.59 Other secondary thrombocytopenia
CPT/HCPCS: 36415; 71046; 78452; 80048; 80061; 80076; 83735; 84484; 85025; 85379; 85610; 85730; 93005; 93017; 93306; 97802; 99218; 99285; A9500; A4216; G0378; J2785

== ENCOUNTER 2018-08-28 23:38 | Emergency (ER) | payer BC, SELFPAY ==
[2018-08-20 03:19] VITALS: BMI 23.8
[2018-08-28 23:38] VITALS: BP 127/79; PULSE 103; RESP 18; O2SAT 96
[2018-08-28 23:39] VITALS: BP 127/79; PULSE 107; RESP 20; TEMP 36.9; O2SAT 97; BMI 26.6
--- NOTE | 2018-08-28 23:54 | CT_ITS ---
HISTORY: CHEST PAIN AND PRESSURE X 24 HRS,DIZZINESS WITH SYNCOPE,PT HAD RECENT SIMILSR EPISODEHX:HYN,CIRRHOSIS,PVDPRIOR AAA REPAIR TECHNIQUE: Helically acquired images were obtained of the chest following the intravenous administration of 100ML ml of Isovue 370 Iodinated contrast. as per pulmonary angiogram protocol with 2D MIP reconstructions. A radiation dose optimization technique was used for this scan. COMPARISON: Chest x-ray from August 20, 2018 FINDINGS: # of images incl. paperwork: [id number] Lungs are clear but for diffuse alveolar and interstitial pulmonary edema. No effusions. Within the thoracic spinebony alignment is normal. Vertebral body height is normal. Facets are well aligned. No rib lesions are perceived. Heart is enlarged. Thoracic aorta is normal. No aneurysms, stenoses, dissections, nor occlusions. No axillary or mediastinal adenopathy. No pulmonary emboli. The gallbladder is somewhat distended with several tiny calcified gallstones within the gallbladder fundus. Of the visualized common bile duct, no calcified choledocholithiasis. CT/CTA Chest W/WO Contrast IMPRESSION: No pulmonary embolism, aortic aneurysm, or aortic dissection. Cholelithiasis Individualized dose optimization techniques were used for this CT. at 0044 Reported and signed by: Enio Matute MD Electronically Signed: Enio Matute MD at 0:43 EDT Tel , Service support ,
--- NOTE | 2018-08-28 23:54 | EKG12_ITS ---
Test Reason : CHEST OTHER Blood Pressure : / mmHG Vent. Rate : 106 BPM Atrial Rate : 106 BPM P-R Int : 192 ms QRS Dur : 098 ms QT Int : 368 ms P-R-T Axes : 056 054 036 degrees QTc Int : 488 ms Sinus tachycardia Otherwise normal ECG Confirmed by AMANDA DAN, DEYANIRA ([id number]), photograph editor NIRANJAN BEE ([id number]) on 08/31/2018 11:57:37 AM Referred By: ORTIZ Confirmed By:DEYANIRA PATEL MD
[2018-08-28 23:59] VITALS: O2SAT 96
[2018-08-29 00:36] LABS: Absolute Lymphocyte Count 1.45 X10^3/ul (0.83-4.51); Absolute Neutrophil Count 1.2 X10^3/uL (2.0-7.7); Basophil# 0.02 X10^3/uL; Basophil% 0.6 % (0-1); Eosinophil# 0.03 X10^3/uL; Eosinophils% 0.9 % (0-5); Hematocrit 35.5 % (40-54); Hemoglobin 12.2 g/dl (13.0-16.5); Lymphocyte # 1.45 X10^3/ul (4.0); Lymphocyte % 42.6 % (19-41); Mean Corp Hgb Conc 34.4 g/gl (32-36); Mean Corpuscular Hgb 33.4 pg (27.0-32.0); Mean Corpuscular Volume 97.3 fL (80-94); Monocyte# 0.73 X10^3/uL; Monocyte% 21.5 % (0-10); Neutrophil # 1.16 X10^3/uL (2.7-7.7); Neutrophil % 34.1 % (47-70); Platelet Count 65 K/mm3 (150-450); RBC Distribution Width CV 14.9 % (11.6-14.6); RBC Distribution Width SD 53.2 fl (35.1-43.9); Red Blood Count 3.65 M/mm3 (4.6-6.2); White Blood Count 3.4 K/mm3 (4.4-11.0)
[2018-08-29 00:39] VITALS: BP 113/62; PULSE 95; RESP 18; O2SAT 94
[2018-08-29 01:05] LABS: POSITIVE COUNT NO; POSITIVE DIFFERENTIAL NO; POSITIVE MORPHOLOGY NO
[2018-08-29 01:07] VITALS: BP 93/61; PULSE 92; RESP 20; O2SAT 93
[2018-08-29 01:08] LABS: International Normalized Ratio 1.4; Prothrombin Time (Protime)PT. 16.6 SECONDS (11.7-14.9)
[2018-08-29 01:32] LABS: Anion Gap 7 (5-15); BUN 7 mg/dL (7-18); BUN/Creat Ratio 11.7 RATIO (10-20); Calcium,Total 7.9 mg/dL (8.5-10.1); Chloride 113 mmol/L (98-107); EST Glomerular Filtration Rate 148 mL/min (>60); Est Glom Filt Rate - Afr Amer 179 mL/min (>60); Estimated Creatinine Clearance 149.09 ml/min; Glucose 194 mg/dL (74-106); Potassium 3.8 mmol/L (3.5-5.1); Sodium Level 143 mmol/L (136-145)
--- NOTE | 2018-08-29 01:34 | ED.DCSUM_ITS ---
- ER Visit Summary Date of Service: 08/29/18 Chief Complaint: Chest pain History of Present Illness: The patient is a 57 M who presents with chest pain. This is been present for about 24 hours. He describes it as a tightness. It was 8 out of 10 at home and is currently 6 out of 10. He felt short of breath earlier although this has since resolved. He had a syncopal episode. This is happened multiple times previously. He actually was just admitted for chest pain and had a negative stress test 8 days ago. He otherwise denies recent illness such as fever cough nausea vomiting. Physical Examination: Initial heart rate 107 vitals otherwise unremarkable Moist mucous membranes Heart regular rhythm slightly tachycardic Lungs are clear Abdomen soft he has diffuse tenderness which is chronic and unchanged Alert Normal affect Test Results: EKG shows sinus rhythm at a rate of 106. CTA of the chest shows no evidence of pulmonary embolism or dissection. Labs notable for white count 3.4, platelets of 65 which is chronic near baseline. INR 1.4. Troponin negative. Emergency Department Course and Treatment: Patient's work-up as above unremarkable. Patient recently had a stress test. He does not have ischemic changes on EKG and he has a negative troponin with 24 hours of pain. Therefore I do not think this is due to cardiac ischemia. Given that he was recently hospitalized a CTA of the chest was obtained to rule out bony embolism. CT is negative. Therefore I do believe he can follow-up as an outpatient. I do not see an indication for rehospitalization. Patient understands to return for new or worsening symptoms. Patient discharged. Treatment Plan: [] Disposition: Discharge Impression: Chest pain This note was generated with [employer] dictation software. It may contain incorrect words, spelling, and punctuation that were not noted in review of the chart prior to signing ED Disposition - Plan for ED Patient: Referrals: Alice Cuellar DO [Primary Care Provider] -
--- NOTE | 2018-08-29 01:36 | ED.DEP ---
ED Disposition - Plan for ED Patient: Instructions: CHEST PAIN, NonCardiac Referrals: Alice Cuellar DO [Primary Care Provider] -
[2018-08-29 01:37] VITALS: BP 104/61; PULSE 76; RESP 19; O2SAT 97
== END 2018-08-29 02:13 | disposition home or self-care (01) ==
PROVIDERS: Emergency Provider Emergency Medicine; Family Provider Family Medicine; PCP Family Medicine
DX: R07.9 Chest pain, unspecified (principal); R06.00 Dyspnea, unspecified; K21.9 Gastro-esophageal reflux disease without esophagitis; I10 Essential (primary) hypertension; I50.9 Heart failure, unspecified
CPT/HCPCS: 71275; 80048; 84484; 85025; 85610; 93005; 99285; J7030; Q9967; A4216

== ENCOUNTER → 2018-10-25 11:47 | Outpatient (CLI) | payer BC, SELFPAY ==
[2018-10-25 13:19] LABS: International Normalized Ratio 1.3
[2018-10-25 13:28] LABS: Absolute Lymphocyte Count 1.65 X10^3/uL (0.83-4.51); Absolute Neutrophil Count 1.3 X10^3/uL (2.0-7.7); Basophil# 0.03 X10^3/uL; Basophil% 0.8 % (0-1); Eosinophils% 2.6 % (0-5); Hematocrit 45.2 % (40-54); Hemoglobin 15.4 g/dL (13.0-16.5); Lymphocyte # 1.65 X10^3/ul (4.0); Lymphocyte % 42.9 % (19-41); Mean Corp Hgb Conc 34.1 g/dL (32-36); Mean Corpuscular Hgb 33.3 pg (27.0-32.0); Mean Corpuscular Volume 97.8 fL (80-94); Mean Platelet Vol. 11.3 fl (6.2-12.0); Monocyte% 20.8 % (0-10); NRBC Flagged by Analyzer 0 % (0-5); Neutrophil # 1.26 X10^3/uL (2.7-7.7); Neutrophil % 32.6 % (47-70); Platelet Count 51 K/mm3 (150-450); RBC Distribution Width CV 12.4 % (11.6-14.6); RBC Distribution Width SD 44.3 fl (35.1-43.9); Red Blood Count 4.62 M/mm3 (4.6-6.2); White Blood Count 3.9 K/mm3 (4.4-11.0)
[2018-10-25 13:38] LABS: ALB/GLOB Ratio 0.8 RATIO (0.9-2.4); AST(SGOT) 116 U/L (15-37); Alanine Aminotransfer ALT/SGPT 103 U/L (16-61); Albumin, Serum 3.6 g/dL (3.2-5.0); Alkaline Phosphatase 101 U/L (45-117); Anion Gap 8 (5-15); BUN 4 mg/dL (7-18); BUN/Creat Ratio 5.5 RATIO (10-20); Calcium,Total 8.9 mg/dL (8.5-10.1); Chloride 100 mmol/L (98-107); Creatinine, Serum 0.73 mg/dL (0.70-1.30); EST Glomerular Filtration Rate 117 mL/min (>60); Est Glom Filt Rate - Afr Amer 142 mL/min (>60); Globulin 4.6 g/dL (2.2-4.2); Glucose 115 mg/dL (74-106); Potassium 3.7 mmol/L (3.5-5.1); Protein, Total 8.2 g/dL (6.4-8.2); Sodium Level 134 mmol/L (136-145)
== END ==
PROVIDERS: Family Provider Family Medicine; PCP Family Medicine; Visit Provider Family Medicine
DX: K70.30 Alcoholic cirrhosis of liver without ascites (principal); I85.10 Secondary esophageal varices without bleeding; D69.9 Hemorrhagic condition, unspecified; R23.8 Other skin changes; D69.59 Other secondary thrombocytopenia; Z51.81 Encounter for therapeutic drug level monitoring
CPT/HCPCS: 36415; 80053; 82140; 85025; 85610

== ENCOUNTER → 2018-11-11 14:55 | Outpatient (CLI) | payer BC, SELFPAY ==
[2018-11-11 16:20] LABS: Absolute Lymphocyte Count 1.08 X10^3/uL (0.83-4.51); Absolute Neutrophil Count 1.7 X10^3/uL (2.0-7.7); Basophil# 0.03 X10^3/uL; Basophil% 0.9 % (0-1); Eosinophil# 0.09 X10^3/uL; Eosinophils% 2.6 % (0-5); Hematocrit 42.4 % (40-54); Hemoglobin 13.7 g/dL (13.0-16.5); Lymphocyte # 1.08 X10^3/ul (4.0); Lymphocyte % 31.6 % (19-41); Mean Corp Hgb Conc 32.3 g/dL (32-36); Mean Corpuscular Hgb 31.9 pg (27.0-32.0); Mean Corpuscular Volume 98.8 fL (80-94); Mean Platelet Vol. 10.9 fl (6.2-12.0); Monocyte# 0.52 X10^3/uL; Monocyte% 15.2 % (0-10); NRBC Flagged by Analyzer 0 % (0-5); Neutrophil # 1.68 X10^3/uL (2.7-7.7); Neutrophil % 49.1 % (47-70); Platelet Count 67 K/mm3 (150-450); RBC Distribution Width CV 12.3 % (11.6-14.6); RBC Distribution Width SD 44.5 fl (35.1-43.9); Red Blood Count 4.29 M/mm3 (4.6-6.2); White Blood Count 3.4 K/mm3 (4.4-11.0)
[2018-11-11 17:10] LABS: ALB/GLOB Ratio 0.8 RATIO (0.9-2.4); AST(SGOT) 34 U/L (15-37); Alanine Aminotransfer ALT/SGPT 30 U/L (16-61); Albumin, Serum 3.2 g/dL (3.2-5.0); Alkaline Phosphatase 67 U/L (45-117); Anion Gap 7 (5-15); BUN 4 mg/dL (7-18); BUN/Creat Ratio 5.6 RATIO (10-20); Calcium,Total 8.6 mg/dL (8.5-10.1); Chloride 109 mmol/L (98-107); Creatinine, Serum 0.71 mg/dL (0.70-1.30); EST Glomerular Filtration Rate 120 mL/min (>60); Est Glom Filt Rate - Afr Amer 146 mL/min (>60); Globulin 3.8 g/dL (2.2-4.2); Glucose 151 mg/dL (74-106); Potassium 4.1 mmol/L (3.5-5.1); Sodium Level 142 mmol/L (136-145)
== END ==
LOC: LAB.FUTURE 14:57 → BFHLAB 02-25 08:16
PROVIDERS: Family Provider Family Medicine; PCP Family Medicine; Visit Provider Family Medicine
DX: K70.30 Alcoholic cirrhosis of liver without ascites (principal); I85.10 Secondary esophageal varices without bleeding; Z51.81 Encounter for therapeutic drug level monitoring
CPT/HCPCS: 36415; 80053; 82140; 85025

== ENCOUNTER → 2019-01-20 09:50 | Outpatient (CLI) | payer BC, SELFPAY ==
--- NOTE | 2019-01-20 17:17 | NEURO_ITS ---
NCS and/or EMG Patient Report HPI: Patient is a 58-year-old male who presented with numbness, major case detective strength weakness and feeling cold in the left hand for about 6 months. Numbness started in the left fifth finger but now affecting fourth finger as well. Patient denies having any neck injuries or being diabetic . Patient has arthritis and is mostly right-hand dominant. Patient does not have any neck pain or radiating pain from neck into the arms. Physical Exam: Weakness of the thenar and hypothenar muscles noted. Decreased sensation to light touch in the distal fingers of left hand noted, major case detective strength weakness noted. Findings: 1. There is prolongation of distal latency of the left median sensory nerve response. 2. There is prolongation of the distal latency of left ulnar sensory nerve response. 3. There is prolongation of the distal latency of left median motor nerve response. 4. Normal needle examination of the left upper extremity. Impression: 1. Findings are consistent with moderately severe left median mononeuropathy at wrist due to carpal tunnel syndrome. 2. Findings are also consistent with left ulnar sensory neuropathy. Recommendation: 1. Patient recommended to wear left hand and elbow splints as much as possible. 2. Patient recommended to avoid repetitive right hand movements and sleeping or leaning on right elbow. 3. Patient may need surgical release of right carpal tunnel syndrome if symptoms continues.
== END ==
PROVIDERS: Family Provider Family Medicine; PCP Family Medicine; Referring Provider Family Medicine; Visit Provider Family Medicine
DX: R20.0 Anesthesia of skin (principal)
CPT/HCPCS: 95886; 95909

== ENCOUNTER → 2019-02-07 12:59 | Outpatient (CLI) | payer BC, SELFPAY ==
[2019-02-07 14:34] LABS: Absolute Lymphocyte Count 1.06 X10^3/uL (0.83-4.51); Absolute Neutrophil Count 0.8 X10^3/uL (2.0-7.7); Basophil# 0.01 X10^3/uL; Basophil% 0.4 % (0-1); Eosinophil# 0.05 X10^3/uL; Eosinophils% 2.2 % (0-5); Hematocrit 35.1 % (40-54); Lymphocyte # 1.06 X10^3/ul (4.0); Lymphocyte % 46.7 % (19-41); Mean Corp Hgb Conc 34.2 g/dL (32-36); Mean Corpuscular Hgb 32.8 pg (27.0-32.0); Mean Corpuscular Volume 95.9 fL (80-94); Mean Platelet Vol. 10.2 fl (6.2-12.0); Monocyte# 0.39 X10^3/uL; Monocyte% 17.2 % (0-10); NRBC Flagged by Analyzer 0 % (0-5); Neutrophil # 0.76 X10^3/uL (2.7-7.7); Neutrophil % 33.5 % (47-70); POSITIVE COUNT YES; POSITIVE DIFFERENTIAL YES; Platelet Count 54 K/mm3 (150-450); RBC Distribution Width CV 14.6 % (11.6-14.6); RBC Distribution Width SD 51.3 fl (35.1-43.9); Red Blood Count 3.66 M/mm3 (4.6-6.2); White Blood Count 2.3 K/mm3 (4.4-11.0)
[2019-02-07 14:35] LABS: Differential Indicated SCAN CRITERIA MET
[2019-02-07 14:45] LABS: ALB/GLOB Ratio 1.1 RATIO (0.9-2.4); AST(SGOT) 27 U/L (15-37); Alanine Aminotransfer ALT/SGPT 27 U/L (16-61); Albumin, Serum 3.6 g/dL (3.2-5.0); Alkaline Phosphatase 83 U/L (45-117); Anion Gap 7 (5-15); BUN 8 mg/dL (7-18); BUN/Creat Ratio 13.2 RATIO (10-20); Calcium,Total 8.4 mg/dL (8.5-10.1); Chloride 107 mmol/L (98-107); EST Glomerular Filtration Rate 146 mL/min (>60); Est Glom Filt Rate - Afr Amer 176 mL/min (>60); Globulin 3.3 g/dL (2.2-4.2); Glucose 92 mg/dL (74-106); Potassium 3.9 mmol/L (3.5-5.1); Protein, Total 6.9 g/dL (6.4-8.2); Sodium Level 141 mmol/L (136-145)
[2019-02-07 14:55] LABS: Differential Comment SCANNED; Hypochromasia RARE
== END ==
PROVIDERS: Family Provider Family Medicine; PCP Family Medicine; Visit Provider Family Medicine
DX: K70.30 Alcoholic cirrhosis of liver without ascites (principal); I85.10 Secondary esophageal varices without bleeding; I10 Essential (primary) hypertension
CPT/HCPCS: 36415; 80053; 82140; 85025

== ENCOUNTER → 2019-02-21 15:44 | Outpatient (CLI) | payer BC, SELFPAY ==
[2019-02-21 17:52] LABS: AST(SGOT) 29 U/L (15-37); Alanine Aminotransfer ALT/SGPT 24 U/L (16-61); Albumin, Serum 3.4 g/dL (3.2-5.0); Alkaline Phosphatase 78 U/L (45-117); Anion Gap 3 (5-15); BUN 10 mg/dL (7-18); BUN/Creat Ratio 14.2 RATIO (10-20); Calcium,Total 8.5 mg/dL (8.5-10.1); Chloride 105 mmol/L (98-107); EST Glomerular Filtration Rate 122 mL/min (>60); Est Glom Filt Rate - Afr Amer 148 mL/min (>60); Globulin 3.4 g/dL (2.2-4.2); Glucose 95 mg/dL (74-106); Potassium 4.5 mmol/L (3.5-5.1); Protein, Total 6.8 g/dL (6.4-8.2); Sodium Level 138 mmol/L (136-145)
[2019-02-21 18:00] LABS: Absolute Lymphocyte Count 1.25 X10^3/uL (0.83-4.51); Absolute Neutrophil Count 1.6 X10^3/uL (2.0-7.7); Basophil# 0.03 X10^3/uL; Basophil% 0.8 % (0-1); Eosinophil# 0.05 X10^3/uL; Eosinophils% 1.4 % (0-5); Hematocrit 30.9 % (40-54); Hemoglobin 10.4 g/dL (13.0-16.5); Lymphocyte # 1.25 X10^3/ul (4.0); Lymphocyte % 35.2 % (19-41); Mean Corp Hgb Conc 33.7 g/dL (32-36); Mean Corpuscular Hgb 32.2 pg (27.0-32.0); Mean Corpuscular Volume 95.7 fL (80-94); Mean Platelet Vol. 10.1 fl (6.2-12.0); Monocyte# 0.57 X10^3/uL; Monocyte% 16.1 % (0-10); NRBC Flagged by Analyzer 0 % (0-5); Neutrophil # 1.64 X10^3/uL (2.7-7.7); Neutrophil % 46.2 % (47-70); POSITIVE COUNT YES; Platelet Count 65 K/mm3 (150-450); RBC Distribution Width CV 13.8 % (11.6-14.6); RBC Distribution Width SD 48.2 fl (35.1-43.9); Red Blood Count 3.23 M/mm3 (4.6-6.2); White Blood Count 3.6 K/mm3 (4.4-11.0)
[2019-02-21 18:04] LABS: Differential Indicated SCAN CRITERIA MET
[2019-02-21 18:07] LABS: International Normalized Ratio 1.2; Prothrombin Time (Protime)PT. 14.8 SECONDS (11.7-14.9)
[2019-02-21 20:16] LABS: Platelet Estimate MOD DEC (ADEQ)
== END ==
PROVIDERS: Family Provider Family Medicine; PCP Family Medicine; Referring Provider Family Medicine; Visit Provider Family Medicine
DX: K70.30 Alcoholic cirrhosis of liver without ascites (principal); I85.10 Secondary esophageal varices without bleeding; I10 Essential (primary) hypertension; K72.90 Hepatic failure, unspecified without coma
CPT/HCPCS: 36415; 80053; 82140; 85025; 85610

== ENCOUNTER → 2019-03-29 14:14 | Outpatient (CLI) | payer BC, SELFPAY ==
[2019-03-29 18:01] LABS: AST(SGOT) 55 U/L (15-37); Alanine Aminotransfer ALT/SGPT 38 U/L (16-61); Albumin, Serum 3.6 g/dL (3.2-5.0); Alkaline Phosphatase 98 U/L (45-117); Anion Gap 4 (5-15); BUN 7 mg/dL (7-18); BUN/Creat Ratio 8.8 RATIO (10-20); Calcium,Total 8.8 mg/dL (8.5-10.1); Chloride 103 mmol/L (98-107); EST Glomerular Filtration Rate 106 mL/min (>60); Est Glom Filt Rate - Afr Amer 128 mL/min (>60); Globulin 3.7 g/dL (2.2-4.2); Glucose 107 mg/dL (74-106); Potassium 3.6 mmol/L (3.5-5.1); Protein, Total 7.3 g/dL (6.4-8.2); Sodium Level 136 mmol/L (136-145)
[2019-03-30 17:11] LABS: Absolute Lymphocyte Count 1.65 X10^3/uL (0.83-4.51); Absolute Neutrophil Count 0.8 X10^3/uL (2.0-7.7); Basophil# 0.01 X10^3/uL; Basophil% 0.3 % (0-1); Eosinophil# 0.05 X10^3/uL; Eosinophils% 1.7 % (0-5); Hematocrit 37.8 % (40-54); Hemoglobin 12.2 g/dL (13.0-16.5); Lymphocyte # 1.65 X10^3/ul (4.0); Lymphocyte % 54.6 % (19-41); Mean Corp Hgb Conc 32.3 g/dL (32-36); Mean Corpuscular Hgb 28.8 pg (27.0-32.0); Mean Corpuscular Volume 89.2 fL (80-94); Mean Platelet Vol. 11.1 fl (6.2-12.0); Monocyte# 0.52 X10^3/uL; Monocyte% 17.2 % (0-10); NRBC Flagged by Analyzer 0 % (0-5); Neutrophil # 0.79 X10^3/uL (2.7-7.7); Neutrophil % 26.2 % (47-70); POSITIVE COUNT YES; POSITIVE DIFFERENTIAL YES; Platelet Count 54 K/mm3 (150-450); RBC Distribution Width CV 14.8 % (11.6-14.6); RBC Distribution Width SD 48.5 fl (35.1-43.9); Red Blood Count 4.24 M/mm3 (4.6-6.2)
[2019-03-30 17:25] LABS: International Normalized Ratio 1.3; Prothrombin Time (Protime)PT. 15.7 SECONDS (11.7-14.9)
[2019-03-30 17:46] LABS: Differential Indicated SCAN CRITERIA MET
[2019-03-30 17:47] LABS: Differential Comment SCANNED
[2019-03-30 17:48] LABS: Platelet Estimate MOD DEC (ADEQ)
== END ==
PROVIDERS: Family Provider Family Medicine; PCP Family Medicine; Referring Provider Family Medicine; Visit Provider Family Medicine
DX: K70.30 Alcoholic cirrhosis of liver without ascites (principal); I85.10 Secondary esophageal varices without bleeding; I10 Essential (primary) hypertension; K72.90 Hepatic failure, unspecified without coma
CPT/HCPCS: 36415; 80053; 82140; 85025; 85610

== ENCOUNTER 2020-01-06 02:48 | Emergency (ER) | payer BC, SELFPAY ==
[2020-01-06 02:49] VITALS: BP 155/83; PULSE 95; RESP 18; TEMP 36.7; O2SAT 96; BMI 28.0
--- NOTE | 2020-01-06 02:58 | ED.VIS.GEN ---
History of Present Illness Chief Complaint: Nausea/Vomiting Informant: Patient Onset: Today Context: Sudden Onset Timing: Continuous Current Severity: Moderate Maximum Severity: Moderate Narrative: Patient is a 59-year-old male with history of cirrhosis and prior history of esophageal varices the presents to the emergency department nausea vomiting. Patient states he went to bed in his normal state of health. He states he had a hamburger in the evening. He states that he woke suddenly with acute onset emesis. He states he vomited multiple times. There is been no blood in the emesis. He states he is had a history of upper GI bleed, but this was different. He describes some abdominal cramping. He denies any fevers or chills. He denies any chest pain or shortness of breath. Patient has had prior aortic aneurysm repair and cervical surgery. He states he is otherwise been in his normal state of health. Prior similar symptoms: No Recent Illness/Hospitalization: No Past Medical History - Allergies and Home Meds Allergies/Adverse Reactions: Allergies No Known Allergies Allergy (Verified 01/06/20 02:53) Primary Care Physician: Alice Cuellar DO [Primary Care Provider] - Prior records reviewed: Yes Past Medical History: - - Prior GI bleed, cirrhosis, history of alcohol abuse, hypertension Surgical History: - - Aortic aneurysm repair Smoking Status: Former smoker - Family History Maternal Family History: Reports: Cancer Paternal Family History: Reports: - - Reportedly his father from lupus Review of Systems General: Denies: Chills, Fever, Sweats Eyes: Denies: Visual changes - bilaterally, Diplopia ENT: Denies: Rhinorrhea, Sore throat Cardiovascular: Denies: Chest pain, Palpitations Respiratory: Denies: Dyspnea, Cough, Dyspnea on exertion Gastrointestinal: Reports: Nausea, Vomiting. Denies: Abdominal pain, Diarrhea, Melena, Hematochezia Genitourinary: Denies: Dysuria, Hematuria, Frequency Musculoskeletal: Denies: Back pain, Extremity Pain Skin: Denies: Rash, Wounds Neurological: Denies: Headache, Weakness, Numbness Physical Exam Vital Signs/Narrative: Vital Signs Temp Pulse Resp BP Pulse Ox 01/06/20 02:49 98.0 F 95 18 155/83 H 96 Inital Vital Signs reviewed: Yes General: Well nourished, Well developed, No Acute Distress Head: Normocephalic, Atraumatic Eyes: Perrl, EOMI ENT: Moist mucous membranes, No rhinorrhea Neck: Supple, Nontender Cardiovascular: Regular rate, Regular rhythm, No murmurs Respiratory: No distress, CTA bilaterally, Chest nontender Abdomen: Soft, Nondistended, Normal bowel sounds, Tender. Negative for: Guarding, Rebound tenderness Back: Nontender, Normal Inspection Extremities: Nontender, No edema Skin: Normal color, No rash Neurological: Alert, Oriented x3, Cranial nerves II-XII grossly intact, Normal Strength, Normal Sensation Psychological: Normal affect, Normal Mood Diagnostic/Tx/Re-eval Clinical Impression(s) from Imaging Studies Abdomen/Pelvis CT 01/06/20 03:26 IMPRESSION: Cholelithiasis. Liver cirrhosis. Electronically Signed: Skylar Galeana, at 4:59 EST Tel , Service support , Abnormal Lab Results 01/06/20 01/06/20 02:50 02:50 WBC 3.8 L RBC 4.18 L Hgb 14.6 Hct 41.4 MCV 99.0 H MCH 34.9 H MCHC 35.3 RDW Std Deviation 49.9 H RDW Coeff of Delilah 13.6 Plt Count 43 L* MPV 10.5 Immature Gran % (Auto) 0.000 Neut % (Auto) 62.3 Lymph % (Auto) 24.3 Harlan % (Auto) 12.4 H Eos % (Auto) 0.5 Baso % (Auto) 0.5 Absolute Neuts (auto) 2.4 Absolute Lymphs (auto) 0.92 Nucleated RBC % 0 Differential Comment SCANNED Diff Path Review May foll Platelet Estimate MOD DEC Sodium 140 Potassium 3.6 Chloride 106 Carbon Dioxide 23.0 Anion Gap 11 BUN 5 L Creatinine 0.63 L Estim Creat Clear Calc 134.46 Est GFR (MDRD) Af Amer 167 Est GFR (MDRD) Non-Af 138 BUN/Creatinine Ratio 7.9 L Glucose 128 H Calcium 8.0 L Total Bilirubin 0.90 AST 72 H ALT 39 Alkaline Phosphatase 100 Total Protein 7.3 Albumin 3.3 Globulin 4.0 Albumin/Globulin Ratio 0.8 L Lipase 230 - Medical Decision Making Patient presents with nausea and vomiting. His abdomen is soft with minimal tenderness in the epigastric area. There is no rebound or guarding. He denies any chest pain or shortness of breath. IV was established. Patient was treated with multiple rounds of antiemetics. Screening labs do show thrombocytopenia, which is chronic for the patient especially in light of his history of cirrhosis, I do not feel that this is acute. The rest of his labs are relatively unremarkable. Patient underwent CT imaging. This was negative for acute process. On reevaluation, the patient is resting comfortably. I did discuss options with the patient. He wants to attempt outpatient therapy. I feel this is reasonable. He has had no bloody emesis. He has had no further emesis since his treatment. I will prescribe him antiemetics. He was counseled on concerning symptoms and reasons to return. He will be discharged home. Impression 1. Nausea and vomiting 2. History of cirrhosis ED Disposition - Plan for ED Patient: Instructions: ED Food Poison Or Gastroenteritis Prescriptions: Ondansetron [Zofran Odt] 4 mg PO Q8H PRN PRN #10 tab PRN Reason: Nausea Prescription Printed Referrals: Alice Cuellar DO [Primary Care Provider] -
[2020-01-06 03:04] LABS: Absolute Lymphocyte Count 0.92 X10^3/uL (0.83-4.51); Absolute Neutrophil Count 2.4 X10^3/uL (2.0-7.7); Basophil# 0.02 X10^3/uL; Basophil% 0.5 % (0-1); Eosinophil# 0.02 X10^3/uL; Eosinophils% 0.5 % (0-5); Hematocrit 41.4 % (40-54); Hemoglobin 14.6 g/dL (13.0-16.5); Lymphocyte # 0.92 X10^3/ul (4.0); Lymphocyte % 24.3 % (19-41); Mean Corp Hgb Conc 35.3 g/dL (32-36); Mean Corpuscular Hgb 34.9 pg (27.0-32.0); Mean Platelet Vol. 10.5 fl (6.2-12.0); Monocyte# 0.47 X10^3/uL; Monocyte% 12.4 % (0-10); NRBC Flagged by Analyzer 0 % (0-5); Neutrophil # 2.35 X10^3/uL (2.7-7.7); Neutrophil % 62.3 % (47-70); POSITIVE COUNT YES; RBC Distribution Width CV 13.6 % (11.6-14.6); RBC Distribution Width SD 49.9 fl (35.1-43.9); Red Blood Count 4.18 M/mm3 (4.6-6.2); White Blood Count 3.8 K/mm3 (4.4-11.0)
[2020-01-06] MEDS: 0.9% Normal Saline 1,000 ML 125 ML IV (03:08)
[2020-01-06] MEDS: Ondansetron 4 MG/2 ML Vial IV (03:08)
[2020-01-06] MEDS: Morphine 4 MG/ML Syringe IV (03:08)
[2020-01-06 03:19] LABS: Differential Indicated SCAN CRITERIA MET; Platelet Count 43 K/mm3 (150-450)
[2020-01-06 03:23] LABS: ALB/GLOB Ratio 0.8 RATIO (0.9-2.4); AST(SGOT) 72 U/L (15-37); Alanine Aminotransfer ALT/SGPT 39 U/L (16-61); Albumin, Serum 3.3 g/dL (3.2-5.0); Alkaline Phosphatase 100 U/L (45-117); Anion Gap 11 (5-15); BUN 5 mg/dL (7-18); BUN/Creat Ratio 7.9 RATIO (10-20); Chloride 106 mmol/L (98-107); Creatinine, Serum 0.63 mg/dL (0.70-1.30); EST Glomerular Filtration Rate 138 mL/min (>60); Est Glom Filt Rate - Afr Amer 167 mL/min (>60); Estimated Creatinine Clearance 134.46 ml/min; Glucose 128 mg/dL (74-106); Lipase 230 U/L (73-393); Potassium 3.6 mmol/L (3.5-5.1); Protein, Total 7.3 g/dL (6.4-8.2); Sodium Level 140 mmol/L (136-145)
--- NOTE | 2020-01-06 03:26 | CT_ITS ---
STUDY: CT ABDOMEN AND PELVIS WITH CONTRAST REASON FOR EXAM: Male, 59 years old. NAUSEA,VOMITING AND ABDOMINAL CRAMPING SINCE 11 PM LAST NIGHT -- HX:HTN,CIRRHOSIS,ESOPHAGEAL VARICES,AA REPAIR RADIATION DOSAGE (If Supplied By Facility): CTDIvol = ( 17.16 ) mGy, DLP = ( 1200.68 ) mGycm TECHNIQUE: Transaxial images were obtained from the dome of the diaphragm to the symphysis pubis without oral contrast. IV 100mL Isovue-370 was administered. Sagittal and coronal images were reconstructed. Individualized dose optimization techniques were used for this CT. COMPARISON: None. FINDINGS: The visualized lung bases are unremarkable. The visualized portions of the heart are within normal limits. There is a diffuse contour abnormality of the liver consistent with cirrhotic changes. There is recanalization of the umbilical vein consistent with portal hypertension. There are multiple gallstones. Normal spleen. Normal pancreas. Normal bilateral adrenal glands. Normal right kidney. Normal left kidney. Normal visualized stomach. Normal small intestine. Normal colon. The appendix is visualized and appears normal. Normal abdominal aorta. Normal inferior vena cava. Normal retroperitoneum. Normal urinary bladder. Normal abdominal wall. Normal osseous structures. CT/Abdomen/Pelvis W IV Cont ONLY IMPRESSION: Cholelithiasis. Liver cirrhosis. Electronically Signed: Skylar Galeana, at 4:59 EST Tel , Service support ,
[2020-01-06 03:46] LABS: Differential Comment SCANNED; Platelet Estimate MOD DEC (ADEQ)
[2020-01-06] MEDS: proMETHazine 25 MG/ML Syringe 12.5 MG IV (04:13)
[2020-01-06 05:00] VITALS: BP 125/81; PULSE 78; RESP 16; O2SAT 98
[2020-01-06] MEDS: DiphenhydrAMINE 50 MG/ML Syringe 25 MG IV (05:14)
[2020-01-06] MEDS: Metoclopramide 10 MG/2 ML Vial 5 MG IV (05:14)
[2020-01-06 05:49] VITALS: BP 125/81; PULSE 78; RESP 16; O2SAT 98
[2020-01-10 09:49] LABS: Pathologist Review Reviewed
== END 2020-01-06 07:00 | disposition home or self-care (01) ==
LOC: ED 03:11
PROVIDERS: Emergency Provider Emergency Medicine; PCP Family Medicine
DX: R11.2 Nausea with vomiting, unspecified (principal); K80.20 Calculus of gallbladder without cholecystitis without obstruction; K74.60 Unspecified cirrhosis of liver; I10 Essential (primary) hypertension; Z87.891 Personal history of nicotine dependence; Z86.79 Personal history of other diseases of the circulatory system
CPT/HCPCS: 74177; 80053; 83690; 85025; 96361; 96374; 96375; 99284; J7030; Q9967; A4216; J2405

== ENCOUNTER 2020-03-11 21:02 | Observation (INO) | payer OTHER, SELFPAY ==
[2020-03-11 21:02] VITALS: BP 151/94; PULSE 113; RESP 18; TEMP 36.8; O2SAT 95; BMI 26.9
--- NOTE | 2020-03-11 21:13 | EKG12_ITS ---
Test Reason : ABD PAIN Blood Pressure : / mmHG Vent. Rate : 097 BPM Atrial Rate : 097 BPM P-R Int : 172 ms QRS Dur : 088 ms QT Int : 398 ms P-R-T Axes : 068 056 061 degrees QTc Int : 505 ms Normal sinus rhythm Prolonged QT Abnormal ECG Confirmed by RAE DAN, LAUREEN ([id number]), videotape editor ANNABELLA TRIANA ([id number]) on 03/12/2020 10:36:15 AM Referred By: NURY Confirmed By:LAUREEN MCBRIDE MD
--- NOTE | 2020-03-11 21:14 | ED.DCSUM_ITS ---
- ER Visit Summary Date of Service: 03/11/20 Chief Complaint: Abdominal pain History of Present Illness: The patient is a [address] Cuellar. He reports his abdominal pain began 2 days ago. Is a sharp, aching pain since in severity. Is worsened by movement relieved by remaining still. Has been naus eated and vomited multiple times. No blood in his emesis. No coffee-ground emesis. He is on lactulose and has had 2 episodes of diarrhea today. No blood in his stools or black tarry stools. No dysuria or frequency. Patient complains of subjective fever and chills. He denies any other complaints. The pain does not radiate to his back. Physical Examination: Vitals: Stable. Afebrile. General: Well-nourished and well-developed. Head: Normocephalic atraumatic. Neck: Supple, no lymphadenopathy. No JVD. Nontender. Cardiovascular: Tachycardic regular rhythm. No murmurs. Respiratory: No respiratory distress. Clear to auscultation bilaterally. Abdominal: Soft, mild diffuse tenderness palpation that is worst in the epigastric region, nondistended, normal bowel sounds. No guarding, rebound, or peritoneal signs. Back: Nontender. Extremities: Nontender, 1+ edema lower extremities bilaterally. Skin: Normal color, no rash. Neurologic: Alert and oriented ?3. Cranial nerves II through XII are intact. Normal strength and sensation. Psych: Normal affect. Test Results: EKG is sinus at 97 with a QTC of 505. This is the only change from August [id number]. At that time his QTC was 48. Troponin is negative. LFTs show total bili 1.4, ALT 62, AST is 99. Lipase is 631. Chem-7 shows a potassium 3.3, glucose 130, creatinine 0.69, calcium 7.8. Ammonia is 69. This is the highest it has ever been here. Emergency Department Course and Treatment: Patient had an IV placed. He was given a liter normal saline. He is given morphine and Zofran IV. He continued to complain of nausea. He was given Reglan IV with no relief. He was given Phenergan IV and states it is slightly better, but he remains nauseated. Treatment Plan: Unsure why the patient's nausea is so severe. His affect is strange as well. I question whether some of this may be because his ammonia level is elevated. He was discussed with Dr. Myrick and will be admitted for further evaluation and treatment. Disposition: Admitted in stable condition. Impression: 1. Cirrhosis. 2. Elevated ammonia. 3. Intractable nausea. 4. Thrombocytopenia. 5. Prolonged QTC. This note was generated with [employer] software. It may contain incorrect words, spelling, and punctuation that were not noted in review of the chart prior to signing ED Disposition - Plan for ED Patient: Referrals: Alice Cuellar DO [Primary Care Provider] -
[2020-03-11] MEDS: Ondansetron 4 MG/2 ML Vial IV (21:30)
[2020-03-11] MEDS: Morphine 4 MG/ML Syringe IV (21:30)
[2020-03-11] MEDS: 0.9% Normal Saline 1,000 ML 1000 ML IV (21:30)
[2020-03-11 21:51] LABS: ALB/GLOB Ratio 0.9 RATIO (0.9-2.4); AST(SGOT) 99 U/L (15-37); Alanine Aminotransfer ALT/SGPT 62 U/L (16-61); Albumin, Serum 3.4 g/dL (3.2-5.0); Alkaline Phosphatase 105 U/L (45-117); Anion Gap 9 (5-15); BUN 2 mg/dL (7-18); BUN/Creat Ratio 2.9 RATIO (10-20); Calcium,Total 7.8 mg/dL (8.5-10.1); Chloride 104 mmol/L (98-107); Creatinine, Serum 0.69 mg/dL (0.70-1.30); EST Glomerular Filtration Rate 125 mL/min (>60); Est Glom Filt Rate - Afr Amer 151 mL/min (>60); Estimated Creatinine Clearance 122.77 ml/min; Globulin 3.9 g/dL (2.2-4.2); Glucose 130 mg/dL (74-106); Lipase 631 U/L (73-393); Potassium 3.3 mmol/L (3.5-5.1); Protein, Total 7.3 g/dL (6.4-8.2); Sodium Level 139 mmol/L (136-145)
[2020-03-11] MEDS: Metoclopramide 10 MG/2 ML Vial 5 MG IV (21:54)
[2020-03-11 22:16] LABS: Absolute Lymphocyte Count 1.23 X10^3/uL (0.83-4.51); Absolute Neutrophil Count 2.2 X10^3/uL (2.0-7.7); Basophil# 0.01 X10^3/uL; Basophil% 0.2 % (0-1); Eosinophil# 0.01 X10^3/uL; Eosinophils% 0.2 % (0-5); Hematocrit 40.4 % (40-54); Hemoglobin 14.4 g/dL (13.0-16.5); Lymphocyte # 1.23 X10^3/ul (4.0); Lymphocyte % 30.5 % (19-41); Mean Corp Hgb Conc 35.6 g/dL (32-36); Mean Corpuscular Volume 98.1 fL (80-94); Mean Platelet Vol. 10.4 fl (6.2-12.0); Monocyte% 14.9 % (0-10); NRBC Flagged by Analyzer 0 % (0-5); Neutrophil # 2.17 X10^3/uL (2.7-7.7); POSITIVE COUNT YES; Platelet Count 51 K/mm3 (150-450); RBC Distribution Width CV 13.6 % (11.6-14.6); RBC Distribution Width SD 49.6 fl (35.1-43.9); Red Blood Count 4.12 M/mm3 (4.6-6.2)
[2020-03-11 22:25] LABS: Differential Indicated SCAN CRITERIA MET
[2020-03-11] MEDS: proMETHazine 25 MG/ML Syringe 6.25 MG IV (22:45)
[2020-03-11 22:46] LABS: Differential Comment SCANNED; Platelet Estimate MKD DEC (ADEQ); Red Cell Morphology NORM C+C NORMAL (NORM C&C)
[2020-03-11 23:31] VITALS: BP 130/62; PULSE 94; PULSE 99; RESP 16; TEMP 36.8; O2SAT 94
--- NOTE | 2020-03-11 23:40 | HP.PCM_ITS ---
Problem List (1) Intractable nausea and vomiting Status: Acute (2) Hypokalemia Status: Acute (3) Cirrhosis Status: Chronic Qualifiers: Hepatic cirrhosis type: alcoholic cirrhosis Ascites presence: unspecified Qualified Code(s): K70.30 - Alcoholic cirrhosis of liver without ascites (4) Benign essential hypertension Status: Chronic (5) PVD (peripheral vascular disease) Status: Chronic History of Present Illness Date of Admission: 03/11/20 Chief Complaint: Intractable nausea and vomiting, abdominal pain - 2 days The patient is a 59 year old M with past medical history of cirrhosis complicated by portal hypertension/esophageal varices comes in with a 2-day history of intractable nausea, vomiting abdominal pain. Patient is a poor historian. He stated that he tried to drink a can of beer 2 days ago and started having abdominal pain. He did not finish drinking a can of beer. He started to have persistent abdominal discomfort with nausea, which can wax and wane. However in the last 15 hours prior to admission, abdominal pain has been severe, is worse with movement, improved with lying still, associated with intractable nausea and vomiting. Patient admits to having 2-3 bowel movements today. He is on lactulose. He has not had any hematochezia or melena. He is on iron pills. He does not follow-up with a GI doctor. Vitals in the ED showed temperature of 98.3F, heart rate 113, blood pressure 151/94, respiratory rate 18, SPO2 is 95% on room air. His WBC count is 4.0, hemoglobin 14.4, platelet count 51, which is his baseline, sodium 139, potassium 3.3, chloride 104, bicarbonate 26, BUN 2, creatinine 0.69, WBC 1.4, AST 99, ALT 62, ammonia 69, ALP 105, troponins negative, lipase 631 Past Medical History Past Medical History (Chronic Problems): Chronic Problems (Last Reviewed 08/20/18 @ 04:[address] Carl Bhagat MD) Diastolic dysfunction (Chronic) Esophageal varices in alcoholic cirrhosis (Chronic) Thrombocytopenia (Chronic) Cirrhosis (Chronic) Benign essential hypertension (Chronic) Obesity (Chronic) History of alcohol abuse (Chronic) History of smoking (Chronic) PVD (peripheral vascular disease) (Chronic) Medical History: Medical History (Last Reviewed 08/20/18 @ 04:[address] Carl Bhagat MD) Liver cirrhosis, alcoholic K70.30 Peripheral arterial disease I73.9 Allergies No Known Allergies Allergy (Verified 03/11/20 21:04) Home Medications: Ambulatory Orders Medication Instructions Recorded Ferrous Sulfate [Iron] 325 mg PO DAILY 03/20/18 Nadolol [Corgard (Beta Rey)] 20 mg PO DAILY 03/20/18 Pantoprazole Sodium 40 mg PO DAILY 03/20/18 Thiamine HCl [Vitamin B-1] 100 mg PO DAILY 03/20/18 Magnesium Oxide [Mag-Ox 400] 400 mg PO DAILYCM #30 tab 08/20/18 Multivitamin with Minerals 1 tab PO DAILY 08/20/18 [Multiple Vitamin] Potassium Chloride [Klor-Con 10] 10 meq PO DAILY #30 tablet.er 08/20/18 Spironolactone 12.5 mg PO DAILY 08/20/18 Ondansetron [Zofran Odt] 4 mg PO Q8H PRN PRN #10 tab 01/06/20 Surgical History: - - Aortic aneurysm repair Psychiatric History: No pertinent psych hx Lives: Spouse/ Significant Other Smoking Status: Former smoker Tobacco Use: Non-smoker Alcohol: Occasional Drugs: None - *Family History Maternal History Items: Cancer Paternal History Items: - - Reportedly his father from lupus Review of Systems Constitutional: Reports: Anorexia, Malaise, Weakness, Fatigue. Denies: Chills, Fever, Night Sweats, Weight Change Eyes: Denies: Blurred vision, Cataracts, Conjunctivae Inflammation, Eyelid Inflammation, Pain, Redness, Vision Change HEENT: Denies: Difficulty Swallowing, Head Aches, Hearing Changes, Sinus Congestion, Sinus Drainage Cardiovascular: Denies: Chest Pain, Claudication, Orthopnea, Palpitations Respiratory: Denies: Cough, Shortness of breath at rest, Shortness of breath upon exertion, Sputum production Gastrointestinal: Denies: Abdominal Pain, Constipation, Hematemesis, Hematochezia, Nausea, Vomiting Genitourinary: Denies: Dysuria, Frequency, Incontinence Musculoskeletal: Denies: Arm Pain, Back Pain, Joint Pain, Joint stiffness, Joint swelling, Joint Tenderness Skin: Denies: Dryness, Pruritis, Rash, Wounds Neurological: Denies: Difficulty swallowing, Focal weakness, Numbness, Tingling Psychiatric: Denies: Anxiety, Depression, Homicidal Ideations, Suicidal Ideations Hematologic/ Lymphatic: Denies: Easy Bruising, Easy Bleeding VTE Information - Inpt Only VTE Present on Admission: No VTE Pharm Prophylaxis ordered?: Yes - Physical Exam Vitals/I&O's: Vital Signs Temp Pulse Resp BP Pulse Ox 98.3 F 113 H 18 151/94 H 95 03/11/20 21:02 03/11/20 21:02 03/11/20 21:02 03/11/20 21:02 03/11/20 21:02 Oxygen Delivery Method Room Air Weight: 87.6 kg Body Mass Index (BMI) 26.9 Intake and Output for Last 24 Hours 03/09/20 03/10/20 03/11/20 23:59 23:59 23:59 Intake Total 1000 / 999 Balance 1000 / 1000 General: Alert, Oriented x3, Cooperative, Lethargic HEENT: Atraumatic, PERRLA, EOMI, Normocephalic Oral: Dry Mucosa Neck: Supple Lungs: Diminished Cardiovascular: Regular rate, Regular Rhythm, Normal S1, Normal S2, No murmurs Abdomen: Bowel Sounds Present, Soft, Non Tender, Non-Distended, No Hepato- splenomegaly Extremities: Edema - chronic venous stasis dermatitis Skin: No rashes Musculoskeletal: No Tenderness to Palpation of Joints or Extremities Lymphatic: No Cervical, Supraclavicular, or Inguinal Adenopathy Neurological: Cranial nerves II-XII grossly intact, Neuro grossly intact Psych/Mental Status: Normal Affect, Appropriate Laboratory Results 03/11/20 21:20: WBC 4.0 L, RBC 4.12 L, Hgb 14.4, Hct 40.4, MCV 98.1 H, MCH 35.0 H, MCHC 35.6, RDW Std Deviation 49.6 H, RDW Coeff of Delilah 13.6, Plt Count 51 L, MPV 10.4, Immature Gran % (Auto) 0.200, Neut % (Auto) 54.0, Lymph % (Auto) 30.5, [place] % (Auto) 14.9 H, Eos % (Auto) 0.2, Baso % (Auto) 0.2, Absolute Neuts (auto) 2.2, Absolute Lymphs (auto) 1.23, Nucleated RBC % 0, Differential Comment SCANNED, Platelet Estimate MKD DEC, RBC Morphology NORM C+C 03/11/20 21:20: Sodium 139, Potassium 3.3 L, Chloride 104, Carbon Dioxide 26.0, Anion Gap 9, BUN 2 L, Creatinine 0.69 L, Estim Creat Clear Calc 122.77, Est GFR (MDRD) Af Amer 151, Est GFR (MDRD) Non-Af 125, BUN/Creatinine Ratio 2.9 L, Glucose 130 H, Calcium 7.8 L, Total Bilirubin 1.40 H, AST 99 H, ALT 62 H, Alkaline Phosphatase 105, Troponin I < 0.015, Total Protein 7.3, Albumin 3.4, Globulin 3.9, Albumin/Globulin Ratio 0.9, Lipase 631 H 03/11/20 21:20: Ammonia 69.0 H Assessment/Plan All Active Problems (Last Reviewed 08/20/18 @ 04:[address] Carl Bhagat MD) Intractable nausea and vomiting (Acute) Hypomagnesemia (Acute) Hypokalemia (Acute) Chest pain (Acute) 1. Intractable nausea/vomiting likely secondary to acute alcoholic gastritis Patient has underlying history of liver cirrhosis with esophageal varices No hematemesis or hematochezia reported QTC is prolonged at 505; repeat EKG in am We will continue on IV Compazine, IV PPI twice daily, Mylanta 2. Cirrhosis of the liver, complicated by portal hypertension/esophageal varices, decompensated Liver function test test is slightly elevated, ammonia is 69 Continue on spironolactone, nadolol, lactulose Repeat ammonia in a.m., repeat ultrasound of the liver 3. Hypokalemia, replaced, will also recheck magnesium 4. Chronic alcohol use disorder, patient continues to use alcohol sporadically, advised to quit We will continue to monitor with [facility] withdrawal protocol 5. Chronic thrombocytopenia secondary to liver cirrhosis Platelets are at the baseline Will trend 6. GERD, continue on IV PPI 6. DVT PPx- SCDs OBSV E&M: 49830 Initial observation care L3
[2020-03-12] VITALS (7 sets, daily range): BP systolic 124–150; BP diastolic 65–74; PULSE 64–113; RESP 18; TEMP 36.6–37; O2SAT 94–98; BMI 26.6; BMI 26.7
[2020-03-12] MEDS: Potassium Chloride 40 MEQ in 0.9% Normal Saline 1,000 ML 125 MEQ IV (00:38)
[2020-03-12 00:50] LABS: Magnesium 1.1 mg/dL (1.6-2.6)
[2020-03-12] MEDS: Magnesium Sulfate 4gm/100mL 4 GM/100 ML IV.SOLN. IV (03:32)
[2020-03-12 04:59] LABS: Absolute Lymphocyte Count 1.27 X10^3/uL (0.83-4.51); Absolute Neutrophil Count 1.4 X10^3/uL (2.0-7.7); Basophil# 0.01 X10^3/uL; Basophil% 0.3 % (0-1); Eosinophil# 0.01 X10^3/uL; Eosinophils% 0.3 % (0-5); Hematocrit 36.1 % (40-54); Hemoglobin 12.5 g/dL (13.0-16.5); Lymphocyte # 1.27 X10^3/ul (4.0); Lymphocyte % 40.2 % (19-41); Mean Corp Hgb Conc 34.6 g/dL (32-36); Mean Corpuscular Hgb 34.3 pg (27.0-32.0); Mean Corpuscular Volume 99.2 fL (80-94); Mean Platelet Vol. 9.9 fl (6.2-12.0); Monocyte# 0.48 X10^3/uL; Monocyte% 15.2 % (0-10); NRBC Flagged by Analyzer 0 % (0-5); Neutrophil # 1.39 X10^3/uL (2.7-7.7); POSITIVE COUNT YES; RBC Distribution Width CV 13.5 % (11.6-14.6); RBC Distribution Width SD 49.6 fl (35.1-43.9); Red Blood Count 3.64 M/mm3 (4.6-6.2); White Blood Count 3.2 K/mm3 (4.4-11.0)
[2020-03-12 05:06] LABS: Differential Indicated SCAN CRITERIA MET; Platelet Count 32 K/mm3 (150-450)
[2020-03-12 05:17] LABS: ALB/GLOB Ratio 0.9 RATIO (0.9-2.4); AST(SGOT) 77 U/L (15-37); Alanine Aminotransfer ALT/SGPT 50 U/L (16-61); Albumin, Serum 2.7 g/dL (3.2-5.0); Alkaline Phosphatase 81 U/L (45-117); Anion Gap 5 (5-15); BUN 2 mg/dL (7-18); BUN/Creat Ratio 4.7 RATIO (10-20); Calcium,Total 7.2 mg/dL (8.5-10.1); Chloride 110 mmol/L (98-107); Creatinine, Serum 0.43 mg/dL (0.70-1.30); EST Glomerular Filtration Rate 216 mL/min (>60); Est Glom Filt Rate - Afr Amer 262 mL/min (>60); Estimated Creatinine Clearance 197.01 ml/min; Globulin 3.1 g/dL (2.2-4.2); Glucose 92 mg/dL (74-106); Potassium 3.7 mmol/L (3.5-5.1); Protein, Total 5.8 g/dL (6.4-8.2); Sodium Level 142 mmol/L (136-145)
[2020-03-12] MEDS: Lactulose 20 GM/30 ML UDC 13.34 GM PO ×3 (05:39→21:11)
[2020-03-12 06:48] LABS: Platelet Estimate MKD DEC (ADEQ)
[2020-03-12] MEDS: proCHLORPERazine 10 MG/2 ML Vial 5 MG IV (08:32)
[2020-03-12] MEDS: Lactated Ringers 1,000 ML 75 ML IV ×2 (08:45→21:07)
[2020-03-12] MEDS: rifAXIMin 550 MG Tablet PO ×2 (10:24→21:11)
[2020-03-12] MEDS: Magnesium Chloride 64 MG Delay Rel.Tablet 128 MG PO (10:25)
[2020-03-12] MEDS: Multivitamins,Ther W-Minerals Tablet 1 TABLET PO (10:25)
[2020-03-12] MEDS: Folic Acid 1 MG Tablet PO (10:25)
[2020-03-12] MEDS: Ferrous Sulfate 325 MG Tablet PO (10:25)
[2020-03-12] MEDS: Nadolol 20 MG Tablet PO (10:25)
[2020-03-12] MEDS: Thiamine Hydrochloride 100 MG Tablet PO (10:25)
[2020-03-12] MEDS: traMADol 50 MG Tablet 100 MG PO (10:34)
[2020-03-12 13:25] LABS: Pathologist Review Reviewed
--- NOTE | 2020-03-12 15:38 | PCM.PN.HOSP ---
Patient Problems: Active and Suspected Problems (Last Reviewed 08/20/18 @ 04:[address] Carl Bhagat MD) Intractable nausea and vomiting (Acute) Hypokalemia (Acute) Subjective: Patient states that he was a able to eat a little bit of his lunch this afternoon and is feeling somewhat better although still having some nausea. He has had no further emesis and has no diarrhea. He states this is the first time in approximately 2 days he has been able to eat. He had mild lipase elevation in the emergency department and does have a history of chronic alcohol abuse. No acute signs of withdrawal. Vitals/I&O's: Vital Signs Temp Pulse Resp BP Pulse Ox 98.1 F 80 18 124/71 H 97 03/12/20 12:12 03/12/20 13:15 03/12/20 12:12 03/12/20 12:12 03/12/20 12:12 Oxygen Delivery Method Room Air Weight: 86.7 kg Body Mass Index (BMI) 26.6 Intake and Output for Last 24 Hours 03/10/20 03/11/20 03/12/20 23:59 23:59 23:59 Intake Total 1000 / 1000 1295.00 / 1295.00 Output Total 275 / 275 Balance 1000 / 1000 1020.00 / 1020.00 General: Alert, Oriented x3, Cooperative, No apparent distress, Well developed, Well nourished, - - Middle-aged white male lying in left side in bed, appears comfortable, sleeping but awakens easily HEENT: Atraumatic, Normocephalic Oral: Moist Mucosa Neck: Supple, Trachea Midline Lungs: Clear to auscultation, No rhonchi, No wheeze, No rales, Diminished - Diffusely Cardiovascular: Regular rate, Regular Rhythm, Normal S1, Normal S2, No murmurs, No Ectopic Activity, No rub noted, No Gallop Abdomen: Bowel Sounds Present, Soft, Non-Distended, Tender - Mild epigastric Extremities: No clubbing, No cyanosis, No edema, Capillary Refill Less than 3 Seconds, Peripheral Pulses Normal Neurological: Cranial nerves II-XII grossly intact, Neuro grossly intact Psych/Mental Status: Normal Affect, Appropriate Laboratory Results 03/11/20 21:20: WBC 4.0 L, RBC 4.12 L, Hgb 14.4, Hct 40.4, MCV 98.1 H, MCH 35.0 H, MCHC 35.6, RDW Std Deviation 49.6 H, RDW Coeff of Delilah 13.6, Plt Count 51 L, MPV 10.4, Immature Gran % (Auto) 0.200, Neut % (Auto) 54.0, Lymph % (Auto) 30.5, Amelia % (Auto) 14.9 H, Eos % (Auto) 0.2, Baso % (Auto) 0.2, Absolute Neuts (auto) 2.2, Absolute Lymphs (auto) 1.23, Nucleated RBC % 0, Differential Comment SCANNED, Platelet Estimate MKD JAN, RBC Morphology NORM C+C 03/11/20 21:20: Sodium 139, Potassium 3.3 L, Chloride 104, Carbon Dioxide 26.0, Anion Gap 9, BUN 2 L, Creatinine 0.69 L, Estim Creat Clear Calc 122.77, Est GFR (MDRD) Af Amer 151, Est GFR (MDRD) Non-Af 125, BUN/Creatinine Ratio 2.9 L, Glucose 130 H, Calcium 7.8 L, Total Bilirubin 1.40 H, AST 99 H, ALT 62 H, Alkaline Phosphatase 105, Troponin I < 0.015, Total Protein 7.3, Albumin 3.4, Globulin 3.9, Albumin/Globulin Ratio 0.9, Lipase 631 H 03/11/20 21:20: Ammonia 69.0 H 03/11/20 21:20: Magnesium 1.1 L 03/12/20 04:45: WBC 3.2 L, RBC 3.64 L, Hgb 12.5 L, Hct 36.1 L, MCV 99.2 H, MCH 34.3 H, MCHC 34.6, RDW Std Deviation 49.6 H, RDW Coeff of Delilah 13.5, Plt Count 32 L*, MPV 9.9, Immature Gran % (Auto) 0.000, Neut % (Auto) 44.0 L, Lymph % (Auto) 40.2, Amelia % (Auto) 15.2 H, Eos % (Auto) 0.3, Baso % (Auto) 0.3, Absolute Neuts (auto) 1.4 L, Absolute Lymphs (auto) 1.27, Nucleated RBC % 0, Diff Path Review Reviewed, Platelet Estimate MKD 03/12/20 04:45: Sodium 142, Potassium 3.7, Chloride 110 H, Carbon Dioxide 27.0, Anion Gap 5, BUN 2 L, Creatinine 0.43 L, Estim Creat Clear Calc 197.01, Est GFR (MDRD) Af Amer 262, Est GFR (MDRD) Non-Af 216, BUN/Creatinine Ratio 4.7 L, Glucose 92, Calcium 7.2 L, Total Bilirubin 1.00, AST 77 H, ALT 50, Alkaline Phosphatase 81, Total Protein 5.8 L, Albumin 2.7 L, Globulin 3.1, Albumin/Globulin Ratio 0.9 03/12/20 04:45: Ammonia 38.0 H Current Medications Al Hydroxide/Mg Hydroxide (Mag Hydrox/Al Hydrox/Simeth 30 Ml Udc) 30 ml PO Q6H PRN PRN PRN Reason: Gastric Burning Ferrous Sulfate (Ferrous Sulfate 325 Mg Tablet) 325 mg PO DAILY@1200 [facility] Last Admin: 03/12/20 10:25 Dose: 325 mg Documented by: Folic Acid (Folic Acid 1 Mg Tablet) 1 mg PO DAILY@0800 [facility] Last Admin: 03/12/20 10:25 Dose: 1 mg Documented by: Pantoprazole Sodium 40 mg/ (Sodium Chloride) 110 mls @ 330 mls/hr IV Q12 [facility] Last Infusion: 03/12/20 10:47 Dose: Infused Documented by: Sodium Chloride () 250 mls @ 15 mls/hr IV .[id number] PRN PRN Reason: Saline Flush Sodium Chloride () 250 mls @ 15 mls/hr IV .[id number] PRN PRN Reason: Additional IVPB Infusion Lactated Ringer's () 1,000 mls @ 75 mls/hr IV .[id number] [facility] Last Admin: 03/12/20 08:45 Dose: 75 mls/hr Documented by: Lactulose (Lactulose 20 Gm/30 Ml Udc) 13.34 gm PO TID [facility] Last Admin: 03/12/20 13:11 Dose: 13.34 gm Documented by: Magnesium Chloride (Magnesium Chloride 64 Mg Delay Rel.Tablet) 128 mg PO DAILYCM [facility] Last Admin: 03/12/20 10:25 Dose: 128 mg Documented by: Morphine Sulfate (Morphine 2 Mg/Ml Syringe) 2 mg IV Q3H PRN PRN PRN Reason: Pain Score 6-10 Multivitamins/Minerals (Multivitamins,Ther W-Minerals Tablet) [facility] Last Admin: 03/12/20 10:25 Dose: 1 tablet Documented by: Nadolol (Nadolol 20 Mg Tablet) 20 mg PO DAILY [facility] Last Admin: 03/12/20 10:25 Dose: 20 mg Documented by: Nutritional Formula (Lactose Free) (Ensure Enlive 120 Ml Liquid) 120 ml PO 4X/DAY [facility] Last Admin: 03/12/20 13:13 Dose: 120 ml Documented by: Potassium Chloride (Potassium Chloride 10 Meq Tablet) [facility] Last Admin: 03/12/20 10:25 Dose: 10 meq Documented by: Prochlorperazine Edisylate (Prochlorperazine 10 Mg/2 Ml Vial) 5 mg IV Q4H PRN PRN PRN Reason: Breakthrough nausea/vomiting Last Admin: 03/12/20 08:32 Dose: 5 mg Documented by: Rifaximin (Rifaximin 550 Mg Tablet) 550 mg PO BID [facility] Last Admin: 03/12/20 10:24 Dose: 550 mg Documented by: Sodium Chloride (0.9% Saline Lock 10 Ml Syringe) 10 - 40 ml IV UD PRN PRN Reason: SALINE FLUSH Thiamine HCl (Thiamine Hydrochloride 100 Mg Tablet) [facility] Last Admin: 03/12/20 10:25 Dose: 100 mg Documented by: Tramadol HCl (Tramadol 50 Mg Tablet) 100 mg PO Q6H PRN PRN PRN Reason: Pain Score 1-10 Last Admin: 03/12/20 10:34 Dose: 100 mg Documented by: Trazodone HCl (Trazodone 100 Mg Tablet) 100 mg PO QHS [facility] STROKE Vital Signs/Narrative: Vital Signs Temp Pulse Resp BP Pulse Ox 03/12/20 13:15 80 03/12/20 12:12 98.1 F 74 18 124/71 H 97 Medical Necessity - Tobacco Use Smoking Status: Former smoker Tobacco Use: Non-smoker Assessment/Plan All Active Problems (Last Reviewed 08/20/18 @ 04:[address] Carl Bhagat MD) Intractable nausea and vomiting (Acute) Hypomagnesemia (Acute) Hypokalemia (Acute) Chest pain (Acute) Intractable nausea and vomiting -Question mild pancreatitis with lipase elevation versus elevation from persistent nausea and vomiting -Was able to eat p.o. lunch -Continue IV fluids for now -P.o. intake as able -Continue antiemetics as needed -Continue twice daily PPI IV push -If continues to improve we will likely discharge tomorrow Hypokalemia -Resolved Hypomagnesemia -Resolved Hyperammonemia -Was 69 on admission and now 38 -Continue lactulose 3 times daily -This is a home medication for patient Alcoholic cirrhosis complicated by portal hypertension/esophageal varices -Mild LFT elevation with hyperammonemia on admission -Continue spironolactone, nadolol, and lactulose -Ammonia better this a.m. -LFT elevation almost resolved -Suspect this was related to his acute issues -Rifaximin started as an inpatient will likely not be continued at discharge Hyperbilirubinemia -Resolved Thrombocytopenia-chronic -related to chronic liver disease -Down slightly this morning but suspect dilutional -We will hold DVT prophylaxis -Repeat platelets in morning Chronic anemia -Related chronic liver disease -Continue p.o. iron Chronic alcohol abuse -Recommend cessation -No signs of withdraw -Continue thiamine and folate DVT prophylaxis -SCDs Inpatient E&M: [id number] Subs Hosp L2
[2020-03-12] MEDS: Morphine 2 MG/ML Syringe IV (17:04)
[2020-03-12] MEDS: traZODone 100 MG Tablet PO (21:11)
[2020-03-13 03:58] VITALS: BP 126/72; PULSE 69; RESP 18; TEMP 36.3; O2SAT 100
[2020-03-13 05:57] LABS: Absolute Neutrophil Count 0.9 X10^3/uL (2.0-7.7); Basophil# 0.01 X10^3/uL; Basophil% 0.5 % (0-1); Eosinophil# 0.01 X10^3/uL; Eosinophils% 0.5 % (0-5); Hemoglobin 13.7 g/dL (13.0-16.5); Lymphocyte % 34.5 % (19-41); Mean Corp Hgb Conc 34.3 g/dL (32-36); Mean Corpuscular Hgb 34.4 pg (27.0-32.0); Mean Corpuscular Volume 100.5 fL (80-94); Mean Platelet Vol. 10.7 fl (6.2-12.0); Monocyte# 0.45 X10^3/uL; Monocyte% 22.2 % (0-10); NRBC Flagged by Analyzer 0 % (0-5); Neutrophil # 0.86 X10^3/uL (2.7-7.7); Neutrophil % 42.3 % (47-70); POSITIVE COUNT YES; POSITIVE DIFFERENTIAL YES; RBC Distribution Width CV 13.3 % (11.6-14.6); RBC Distribution Width SD 50.1 fl (35.1-43.9); Red Blood Count 3.98 M/mm3 (4.6-6.2)
[2020-03-13 05:58] LABS: Differential Indicated SCAN CRITERIA MET; Platelet Count 27 K/mm3 (150-450)
[2020-03-13] MEDS: Lactulose 20 GM/30 ML UDC 13.34 GM PO ×2 (06:13→13:07)
[2020-03-13 06:29] LABS: ALB/GLOB Ratio 0.8 RATIO (0.9-2.4); AST(SGOT) 64 U/L (15-37); Alanine Aminotransfer ALT/SGPT 47 U/L (16-61); Albumin, Serum 2.7 g/dL (3.2-5.0); Alkaline Phosphatase 84 U/L (45-117); Anion Gap 5 (5-15); BUN 4 mg/dL (7-18); BUN/Creat Ratio 7.8 RATIO (10-20); Calcium,Total 7.9 mg/dL (8.5-10.1); Chloride 105 mmol/L (98-107); Creatinine, Serum 0.51 mg/dL (0.70-1.30); EST Glomerular Filtration Rate 175 mL/min (>60); Est Glom Filt Rate - Afr Amer 212 mL/min (>60); Globulin 3.4 g/dL (2.2-4.2); Glucose 91 mg/dL (74-106); Potassium 4.1 mmol/L (3.5-5.1); Protein, Total 6.1 g/dL (6.4-8.2); Sodium Level 139 mmol/L (136-145)
[2020-03-13 07:59] LABS: Differential Comment S; Platelet Estimate MKD DEC (ADEQ)
[2020-03-13] MEDS: Magnesium Chloride 64 MG Delay Rel.Tablet 128 MG PO (08:14)
[2020-03-13] MEDS: traMADol 50 MG Tablet 100 MG PO (08:14)
[2020-03-13] MEDS: Thiamine Hydrochloride 100 MG Tablet PO (08:15)
[2020-03-13] MEDS: Folic Acid 1 MG Tablet PO (08:15)
[2020-03-13] MEDS: Multivitamins,Ther W-Minerals Tablet 1 TABLET PO (08:15)
--- NOTE | 2020-03-13 08:43 | PCS.PANDOC ---
PANDEMIC DOCUMENTATION INITIATED: Date: 02/06/2020 Time:
[2020-03-13 09:51] VITALS: BP 148/83; PULSE 77; RESP 18; TEMP 36.6; O2SAT 96
[2020-03-13] MEDS: rifAXIMin 550 MG Tablet PO (09:53)
[2020-03-13] MEDS: Ferrous Sulfate 325 MG Tablet PO (09:53)
[2020-03-13] MEDS: Nadolol 20 MG Tablet PO (09:53)
[2020-03-13] MEDS: Pantoprazole Sodium 40 MG Tablet PO (09:54)
--- NOTE | 2020-03-13 10:10 | CASEMGMT ---
RN CM SPIRITUAL ADVISOR CM to room to meet with patient for initial transition planning/care coordination assessment. RN MIGDALIA introduced self and role at [facility]. Pt voices understanding and consents to assessment at this time. Pt sitting up in recliner chair in room in no distress at this time. Pt is A/O at this time and answers all questions appropriately. Care providers, pharmacy, and demographics verified/updated at this time. PCP: Dr Cuellar Specialists: none Preferred Pharmacy:[facility] Insurance: [employer] [place] Prescription Benefit: Yes Living Will/HPOA: Pt does not currently have LW/HCPOA and declines info at this time. Pt made aware that he can contact SW as an out-pt and make appt in the future if he decides he would like to talk with someone about this or would like to utilize [facility] social work for advanced directive completion. Given [employer] card with information and contact number. Pt expresses understanding. LNOK: , [place] [facility] Living Arrangements: Lives w/his in apartment on 3rd floor which has an elevator, but sometimes it does not work and he has to use the stairs. He states it is challenging but he takes them slowly. Independent w/ADL's and he helps his w/home mgmt tasks. Pt states he is on disability and income is limited. He states they do have enough money for food, but he is interested in information on community resources. Transportation: neither pt nor his drive. Friend provides transportation at times or he uses a taxi/cab service DME: States has the following DME: walker. PT has recommended shower chair to pt. Pt given list of local DME companies that he can purchase these from or from [employer] or [employer]. Pt states no need for further DME at this time. HHC/SNF: Hx of [facility] SN[facility]. No history of HHC. Pt declines need for HHC, but is interested in going OP therapy but voices concern w/transportation. Pt made aware [facility] van transportation can be arranged for his appts if he goes to [facility]. Pt states is interested in this and would like a script for OP therapy. This was obtained from Dr Vargas and given to pt. Pt wishes to return home and states has no concerns with going home at time of discharge. CM to follow for any further discharge planning/needs. Pt voices no further concerns/needs at this time. Advised pt to ask for CM if any further questions/concerns/needs arise. Voices understanding. PLAN: Home w/OP therapy. SW c/s for ETOH abuse and financial/community resources. Neo ORRN RN CM
--- NOTE | 2020-03-13 11:47 | NURSING ---
upon walking past room, pt up ambluating at FOB, not using his walker. Said nurse to room, inquired as to pt actions- pt states i am just fixing my bed. reinforced/re-educated on risks/ramifications of safety issues/fall risk/ use of proper equipment- pt states he understands all of that but continues to decline assistance or use of proper safety precautions/equipment.
--- NOTE | 2020-03-13 12:48 | CASEMGMT ---
SW met w/pt in room in regard to financial resources and alcohol abuse history. SW explained came in to see pt as was referred by case management for financial resources. Pt states he wasn't sure, does not remember things. SW explained will review the resource SW brought in to see if anything may be helpful. SW provided to pt resources for J[employer], [facility], [employer], [facility], and dental clinics, and [facility] [employer]. Pt declined needing any assist in regard to food. Pt confirms he does have insurance, it's new this year through his 's employer, so he isn't quite certain how things will be covered. He also states is waiting to get Medicare, is on disability already. SW asked pt about his alcohol use, pt denies that this is an issue for him. SW did mention read in the doctor's note he was drinking a beer and his stomach began to hurt. Pt states that he poured the beer down the drain. Pt does not feel that alcohol is a problem for him. SW offered to give pt resources, he states he knows the local resources, declined any information regarding alcohol abuse. SW remains available for any additional social service needs. THIERNO Bustos
[2020-03-13 13:17] LABS: Absolute Lymphocyte Count 0.84 X10^3/uL (0.83-4.51); Absolute Neutrophil Count 1.5 X10^3/uL (2.0-7.7); Basophil# 0.01 X10^3/uL; Basophil% 0.3 % (0-1); Eosinophil# 0.03 X10^3/uL; Hematocrit 43.6 % (40-54); Hemoglobin 14.9 g/dL (13.0-16.5); Lymphocyte # 0.84 X10^3/ul (4.0); Lymphocyte % 27.2 % (19-41); Mean Corp Hgb Conc 34.2 g/dL (32-36); Mean Corpuscular Hgb 34.8 pg (27.0-32.0); Mean Corpuscular Volume 101.9 fL (80-94); Mean Platelet Vol. 10.4 fl (6.2-12.0); Monocyte# 0.69 X10^3/uL; Monocyte% 22.3 % (0-10); NRBC Flagged by Analyzer 0 % (0-5); Neutrophil # 1.51 X10^3/uL (2.7-7.7); Neutrophil % 48.9 % (47-70); POSITIVE COUNT YES; Platelet Count 37 K/mm3 (150-450); RBC Distribution Width CV 13.5 % (11.6-14.6); RBC Distribution Width SD 51.6 fl (35.1-43.9); Red Blood Count 4.28 M/mm3 (4.6-6.2); White Blood Count 3.1 K/mm3 (4.4-11.0)
--- NOTE | 2020-03-13 13:56 | DCINST_ITS ---
- Discharge Diagnoses Current Active Problems: Current Active and Chronic Problems (Last Reviewed 08/20/18 @ 04:[address] Carl Bhagat MD) Intractable nausea and vomiting (Acute) Hypokalemia (Acute) Cirrhosis (Chronic) Benign essential hypertension (Chronic) PVD (peripheral vascular disease) (Chronic) You will use the following diet at home:: Regular Your food should be the consistency of: Regular Your liquids should be the consistency of: Regular/Thin Discharge Activity: Return to Normal Activity Call your doctor if you observe: - - Avoid alcohol intake all kinds Allergies/Adverse Reactions: Allergies No Known Allergies Allergy (Verified 03/11/20 21:04) Medications to take at Discharge Ferrous Sulfate [Iron] 325 mg PO DAILY 03/20/18 Nadolol [Corgard (Beta Rey)] 20 mg PO DAILY 03/20/18 Pantoprazole Sodium 40 mg PO DAILY 03/20/18 Thiamine HCl [Vitamin B-1] 100 mg PO DAILY 03/20/18 Multivitamin with Minerals [Multiple Vitamin] 1 tab PO DAILY 08/20/18 Spironolactone 12.5 mg PO DAILY 08/20/18 Lactulose [Constulose] 20 ml PO TID 03/12/20 Magnesium Oxide [Mag-Ox 400] 400 mg PO DAILYCM 03/12/20 Potassium Chloride [Klor-Con 10] 10 meq PO DAILY 03/12/20 Trazodone HCl 100 mg PO QHS 03/12/20 traMADol [Ultram] 100 mg PO Q6H PRN PRN 03/12/20 Multivitamins,Ther W-Minerals [Multivitamin With Minerals (BKC)] 1 tab PO DAILYCM tab 03/13/20 Primary Care Physician: Alice Cuellar DO [Primary Care Provider] - Please follow up with your Primary Care Physician in: 1-2 weeks Test Results: Test results from this visit will be discussed in further detail at your follow- up appointment, if applicable.
--- NOTE | 2020-03-13 13:58 | DS.PCM_ITS ---
Discharge Date and Diagnosis - Problem List Patient Problems: Active and Suspected Problems (Last Reviewed 08/20/18 @ 04:[address] Carl Bhagat MD) Intractable nausea and vomiting (Acute) Hypokalemia (Acute) Date of Admission: 03/11/20 Date of Discharge: 03/13/20 - Primary Discharge Diagnosis Acute Problems: Active Problems (Last Reviewed 08/20/18 @ 04:[address] Carl Bhagat MD) Intractable nausea and vomiting (Acute) Hypokalemia (Acute) - Secondary Discharge Diagnosis Chronic Problems: Chronic Problems (Last Reviewed 08/20/18 @ 04:[address] 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 Dillon is a 59 year old WM with a PMH of alcoholic cirrhosis that is complicated by portal hypertension and esophageal varices, chronic anemia, and chronic thrombocytopenia who presented to the emergency department at [facility] on 03/11/2020 with intractable nausea and vomiting with ab dominal pain that had been going on for approximately 2 days. On admission he states that he tried to drink a can of beer 2 days ago when he started having abdominal pain and he was not able to finish that can. He he had been having persistent abdominal discomfort with nausea that would wax and wane since that point time. 15 hours prior to admission he reported his abdominal pain had been more severe and his nausea and vomiting became intractable. He was having bowel movements on admission. Vital signs on admission were stable his lab work on admission showed chronic leukopenia, thrombocytopenia, hypokalemia, and elevated ammonia level of 69, and elevated lipase of 631, and an elevated bilirubin. His transaminases were mildly elevated and trended back down prior to discharge. He was placed on IV fluids antiemetics and given for supportive care. His p.o. intake improved and he was eating at least 50% of his meals prior to discharge and having no issues with keeping fluids down and had no further emesis. We had a discussion regarding his continued drinking and he agreed that he knew that this was a problem and plan on quitting, but then upon discussion with the bilingual case manager he denied alcohol abuse was a problem and stated he did not need any help. Resources were offered and he declined any further information. It looks on the a.m. of discharge were 29,000, given the fact he was on hydration his IV fluids were stopped and repeat platelets were obtained and they were closer to baseline at 37,000. I did discuss with the patient his overall prognosis if he continues to drink and he voiced understanding. He is to follow-up with his PCP in 1 to 2 weeks for hospital follow-up. He was also given a referral for physical therapy prior to discharge given his balance issues. Discharge diagnoses Intractable nausea and vomiting-resolved Hypokalemia-resolved Hypomagnesemia-resolved Hyperammonemia Alcoholic liver cirrhosis Portal hypertension Esophageal varices Hyperbilirubinemia Chronic thrombocytopenia Chronic anemia Chronic lymphopenia Persistent alcohol abuse Discharge time greater than 35 minutes Patient Problems: Active and Suspected Problems (Last Reviewed 08/20/18 @ 04:[address] Carl Bhagat MD) Intractable nausea and vomiting (Acute) Hypokalemia (Acute) Subjective: Patient is lying in bed. Per discussion with nursing patient ate at least 50% of his lunch, and for breakfast he drank an entire supplemental shake, Jell-O, and juice. His oral hydration has not been a problem. He has been trying to independently ambulate in the room and having no difficulties with this. - Physical Exam Vitals/I&O's: Vital Signs Temp Pulse Resp BP Pulse Ox 97.8 F 77 18 148/83 H 96 03/13/20 09:51 03/13/20 09:51 03/13/20 09:51 03/13/20 09:51 03/13/20 09:51 Oxygen Delivery Method Room Air Weight: 86.7 kg Body Mass Index (BMI) 26.6 Intake and Output for Last 24 Hours 03/11/20 03/12/20 03/13/20 23:59 23:59 23:59 Intake Total 1000 / 1000 2633.75 / 2633.75 1240 / 1240 Output Total 1025 / 1025 850 / 850 Balance 1000 / 1000 1608.75 / 1608.75 390 / 390 General: Alert, Oriented x3, Cooperative, No apparent distress, Well developed, Well nourished, - - White male, appears older than stated age, lying in bed appears comfortable, nontoxic HEENT: Atraumatic, PERRLA, EOMI, Normocephalic, EAC Clear Oral: Moist Mucosa, No Gingival or Mucosal Lesions/ Ulcerations, - - No thrush Neck: Supple, Trachea Midline Lungs: Clear to auscultation, Normal air movement, No rhonchi, No wheeze, No rales, Diminished Cardiovascular: Regular rate, Regular Rhythm, Normal S1, Normal S2, No murmurs, No Ectopic Activity, No rub noted, No Gallop Abdomen: Bowel Sounds Present, Soft, Non Tender, Non-Distended Extremities: No clubbing, No cyanosis, No edema, Capillary Refill Less than 3 Seconds, Peripheral Pulses Normal Skin: No rashes, No breakdown Musculoskeletal: No Tenderness to Palpation of Joints or Extremities, No Muscle Wasting Neurological: Cranial nerves II-XII grossly intact, Neuro grossly intact, Muscle tone normal, Coordination normal Psych/Mental Status: Appropriate, Flat Affect Laboratory Results 03/13/20 05:38: WBC 2.0 L, RBC 3.98 L, Hgb 13.7, Hct 40.0, MCV 100.5 H, MCH 34.4 H, MCHC 34.3, RDW Std Deviation 50.1 H, RDW Coeff of Delilah 13.3, Plt Count 27 L*, MPV 10.7, Immature Gran % (Auto) 0.000, Neut % (Auto) 42.3 L, Lymph % (Auto) 34.5, [place] % (Auto) 22.2 H, Eos % (Auto) 0.5, Baso % (Auto) 0.5, Absolute Neuts (auto) 0.9 L, Absolute Lymphs (auto) 0.70 L, Nucleated RBC % 0, Differential Comment S, Diff Path Review June raquel, Platelet Estimate MKD 03/13/20 05:38: Sodium 139, Potassium 4.1, Chloride 105, Carbon Dioxide 29.0, Anion Gap 5, BUN 4 L, Creatinine 0.51 L, Estim Creat Clear Calc 166.10, Est GFR (MDRD) Af Amer 212, Est GFR (MDRD) Non-Af 175, BUN/Creatinine Ratio 7.8 L, Glucose 91, Calcium 7.9 L, Total Bilirubin 2.00 H, AST 64 H, ALT 47, Alkaline Phosphatase 84, Total Protein 6.1 L, Albumin 2.7 L, Globulin 3.4, Albumin/Globulin Ratio 0.8 L 03/13/20 13:00: WBC 3.1 L, RBC 4.28 L, Hgb 14.9, Hct 43.6, MCV 101.9 H, MCH 34.8 H, MCHC 34.2, RDW Std Deviation 51.6 H, RDW Coeff of Delilah 13.5, Plt Count 37 L*, MPV 10.4, Immature Gran % (Auto) 0.300, Neut % (Auto) 48.9, Lymph % (Auto) 27.2, [place] % (Auto) 22.3 H, Eos % (Auto) 1.0, Baso % (Auto) 0.3, Absolute Neuts (auto) 1.5 L, Absolute Lymphs (auto) 0.84, Nucleated RBC % 0, Diff Path Review May foll Current Medications Al Hydroxide/Mg Hydroxide (Mag Hydrox/Al Hydrox/Simeth 30 Ml Udc) 30 ml PO Q6H PRN PRN PRN Reason: Gastric Burning Ferrous Sulfate (Ferrous Sulfate 325 Mg Tablet) 325 mg PO DAILY@1200 [facility] Last Admin: 03/13/20 09:53 Dose: 325 mg Documented by: Folic Acid (Folic Acid 1 Mg Tablet) 1 mg PO DAILY@0800 [facility] Last Admin: 03/13/20 08:15 Dose: 1 mg Documented by: Sodium Chloride () 250 mls @ 15 mls/hr IV .[id number] PRN PRN Reason: Saline Flush Sodium Chloride () 250 mls @ 15 mls/hr IV .[id number] PRN PRN Reason: Additional IVPB Infusion Lactulose (Lactulose 20 Gm/30 Ml Udc) 13.34 gm PO TID [facility] Last Admin: 03/13/20 13:07 Dose: 13.34 gm Documented by: Magnesium Chloride (Magnesium Chloride 64 Mg Delay Rel.Tablet) [facility] Last Admin: 03/13/20 08:14 Dose: 128 mg Documented by: Multivitamins/Minerals (Multivitamins,Ther W-Minerals Tablet) [facility] Last Admin: 03/13/20 08:15 Dose: 1 tablet Documented by: Nadolol (Nadolol 20 Mg Tablet) 20 mg PO DAILY [facility] Last Admin: 03/13/20 09:53 Dose: 20 mg Documented by: Nutritional Formula (Lactose Free) (Ensure Enlive 120 Ml Liquid) 120 ml PO 4X/DAY [facility] Last Admin: 03/13/20 13:07 Dose: 120 ml Documented by: Pantoprazole Sodium (Pantoprazole Sodium 40 Mg Tablet) 40 mg PO DAILY [facility] Last Admin: 03/13/20 09:54 Dose: 40 mg Documented by: Potassium Chloride (Potassium Chloride 10 Meq Tablet) [facility] Last Admin: 03/13/20 08:14 Dose: 10 meq Documented by: Rifaximin (Rifaximin 550 Mg Tablet) 550 mg PO BID [facility] Last Admin: 03/13/20 09:53 Dose: 550 mg Documented by: Sodium Chloride (0.9% Saline Lock 10 Ml Syringe) 10 - 40 ml IV UD PRN PRN Reason: SALINE FLUSH Thiamine HCl (Thiamine Hydrochloride 100 Mg Tablet) [facility] Last Admin: 03/13/20 08:15 Dose: 100 mg Documented by: Tramadol HCl (Tramadol 50 Mg Tablet) 100 mg PO Q6H PRN PRN PRN Reason: Pain Score 1-10 Last Admin: 03/13/20 08:14 Dose: 100 mg Documented by: Trazodone HCl (Trazodone 100 Mg Tablet) 100 mg PO QHS [facility] Last Admin: 03/12/20 21:11 Dose: 100 mg Documented by: Discharge Activity: Return to Normal Activity Call your doctor if you observe: - - Avoid alcohol intake all kinds Home Medications: Medications to take at Discharge Ferrous Sulfate [Iron] 325 mg PO DAILY 03/20/18 Nadolol [Corgard (Beta Rey)] 20 mg PO DAILY 03/20/18 Pantoprazole Sodium 40 mg PO DAILY 03/20/18 Thiamine HCl [Vitamin B-1] 100 mg PO DAILY 03/20/18 Multivitamin with Minerals [Multiple Vitamin] 1 tab PO DAILY 08/20/18 Spironolactone 12.5 mg PO DAILY 08/20/18 Lactulose [Constulose] 20 ml PO TID 03/12/20 Magnesium Oxide [Mag-Ox 400] 400 mg PO DAILY 03/12/20 Potassium Chloride [Klor-Con 10] 10 meq PO DAILY 03/12/20 Trazodone HCl 100 mg PO QHS 03/12/20 traMADol [Ultram] 100 mg PO Q6H PRN PRN 03/12/20 Multivitamins,Ther W-Minerals [Multivitamin With Minerals (BKC)] 1 tab PO DAILYCM tab 03/13/20 Primary Care Physician: Alice Cuellar DO [Primary Care Provider] - Please follow up with your Primary Care Physician in: 1-2 weeks Medical Necessity - Tobacco Use Smoking Status: Former smoker Tobacco Use: Non-smoker Meaningful Use Info Meaningful Use Diagnoses (Choose all that apply): None applicable Inpatient E&M: 85325 Disch Hosp
[2020-03-14 13:02] LABS: Pathologist Review Reviewed
[2020-03-14 13:03] LABS: Pathologist Review Reviewed
== END 2020-03-13 14:03 | disposition home or self-care (01) ==
LOC: ED 22:37 → MS3 23:48
PROVIDERS: Admitting Provider Internal Medicine; Emergency Provider Emergency Medicine; PCP Family Medicine; Visit Provider Internal Medicine
DX: R11.2 Nausea with vomiting, unspecified (principal); E87.6 Hypokalemia; I73.9 Peripheral vascular disease, unspecified; I10 Essential (primary) hypertension; R19.7 Diarrhea, unspecified; Z79.899 Other long term (current) drug therapy; R94.31 Abnormal electrocardiogram [ECG] [EKG]; K70.30 Alcoholic cirrhosis of liver without ascites; Z87.891 Personal history of nicotine dependence; D69.59 Other secondary thrombocytopenia; K21.9 Gastro-esophageal reflux disease without esophagitis; K76.6 Portal hypertension; F10.10 Alcohol abuse, uncomplicated
CPT/HCPCS: 36415; 80053; 82140; 83690; 83735; 84484; 85025; 93005; 96361; 96365; 96366; 96375; 96376; 97162; 97802; 99218; 99283; J7030; J7120; A4216; G0378; J2405

== ENCOUNTER 2020-04-04 06:41 | Emergency (ER) | payer OTHER, SELFPAY ==
[2020-03-12 00:23] VITALS: BMI 26.6
[2020-04-04 06:44] VITALS: BP 146/87; PULSE 96; RESP 25; TEMP 35.5; O2SAT 96; BMI 29.1
--- NOTE | 2020-04-04 07:11 | ED.DCSUM_ITS ---
History of Present Illness Chief Complaint: GI Bleed Informant: Patient Narrative: 39-year-old male presents with sudden onset of vomiting blood. Patient tells me that approximately 2 hours ago he awoke suddenly and cannot stop vomiting. He notes bright red blood and some dark brown emesis. Patient has a significant medical history of alcoholic cirrhosis with esophageal varices. He was recently in the hospital for intractable vomiting without bleeding. In that hospitalization he was noted to be thrombocytopenic. He did not believe he had any problems with alcohol and did not wish resources. He tells me he did have a 1 singular can of beer yesterday with a sandwich. He states that he is on lactulose prescribed by his primary care physician and his stools have not changed but are always loose and black because of iron supplementation. He tells me he does not have a rail layer. He tells me that the last time he had a endoscopy was 6 years ago. However, from reviewing the patient's chart in March 2018 he was seen in the emergency department. At that time he had noted that he had just been discharged from [facility]. Reportedly he had a procedure to cauterize a vessel due to upper GI bleeding. No further details were found. - Past Medical History (1) Benign essential hypertension Status: Chronic (2) Cirrhosis Status: Chronic (3) Diastolic dysfunction Status: Chronic (4) Esophageal varices in alcoholic cirrhosis Status: Chronic (5) Obesity Status: Chronic (6) PVD (peripheral vascular disease) Status: Chronic (7) Thrombocytopenia Status: Chronic Past Medical History - Allergies and Home Meds Allergies/Adverse Reactions: Allergies No Known Allergies Allergy (Verified 04/04/20 06:44) Primary Care Physician: Alice Cuellar DO [Primary Care Provider] - Surgical History: - - Aortic aneurysm repair Smoking Status: Former smoker Alcohol: Occasional Drugs: None - Family History Maternal Family History: Reports: Cancer Paternal Family History: Reports: - - Reportedly his father from lupus Review of Systems General: Denies: Chills, Fever, Sweats Eyes: Denies: Visual changes - bilaterally, Diplopia ENT: Denies: Rhinorrhea, Sore throat Cardiovascular: Denies: Chest pain, Palpitations Respiratory: Denies: Dyspnea, Cough, Dyspnea on exertion Gastrointestinal: Reports: Nausea, Vomiting. Denies: Abdominal pain, Diarrhea, Melena, Hematochezia Genitourinary: Denies: Dysuria, Hematuria, Frequency Musculoskeletal: Denies: Back pain, Extremity Pain Skin: Denies: Rash, Wounds Neurological: Denies: Headache, Weakness, Numbness Physical Exam Vital Signs/Narrative: Vital Signs Temp Pulse Resp BP Pulse Ox 04/04/20 06:44 96 F L 96 25 H 146/87 H 96 Inital Vital Signs reviewed: Yes General: Well nourished, Well developed, Unkempt, No Acute Distress, - - Patient actively vomiting. Emesis is bright red streaks with some brown fluid. Head: Normocephalic, Atraumatic Eyes: Perrl, EOMI ENT: Moist mucous membranes, No rhinorrhea Neck: Supple, Nontender Cardiovascular: Regular rate, Regular rhythm, No murmurs Respiratory: No distress, CTA bilaterally, Chest nontender Abdomen: Soft, Nontender, Nondistended, Normal bowel sounds Back: Nontender, Normal Inspection Extremities: Nontender, No edema Skin: Normal color, No rash Neurological: Alert, Oriented x3, Cranial nerves II-XII grossly intact, Normal Strength, Normal Sensation Psychological: Normal affect, Normal Mood Diagnostic/Tx/Re-eval Clinical Impression(s) from Imaging Studies Chest X-Ray 04/04/20 07:30 IMPRESSION: Low lung volumes without definite acute abnormality. at 0740 Reported and signed by: Gabriella Cardozo MD Electronically Signed: Gabriella Cardozo MD at 7:40 EST Tel , Service support , Laboratory Last Values WBC 4.1 K/mm3 (4.4-11.0) L 04/04/20 06:45 RBC 4.02 M/mm3 (4.6-6.2) L 04/04/20 06:45 Hgb 14.1 g/dL (13.0-16.5) 04/04/20 06:45 Hct 40.4 % (40-54) 04/04/20 06:45 MCV 100.5 fL (80-94) H 04/04/20 06:45 MCH 35.1 pg (27.0-32.0) H 04/04/20 06:45 MCHC 34.9 g/dL (32-36) 04/04/20 06:45 RDW Std Deviation 49.5 fl (35.1-43.9) H 04/04/20 06:45 RDW Coeff of Delilah 13.3 % (11.6-14.6) 04/04/20 06:45 Plt Count 44 K/mm3 (150-450) L* 04/04/20 06:45 MPV 10.4 fl (6.2-12.0) 04/04/20 06:45 Immature Gran % (Auto) 0.200 % (0.0-0.9) 04/04/20 06:45 Neut % (Auto) 57.8 % (47-70) 04/04/20 06:45 Lymph % (Auto) 23.2 % (19-41) 04/04/20 06:45 [place] % (Auto) 17.4 % (0-10) H 04/04/20 06:45 Eos % (Auto) 0.7 % (0-5) 04/04/20 06:45 Baso % (Auto) 0.7 % (0-1) 04/04/20 06:45 Absolute Neuts (auto) 2.4 X10^3/uL (2.0-7.7) 04/04/20 06:45 Absolute Lymphs (auto) 0.96 X10^3/uL (0.83-4.51) 04/04/20 06:45 Nucleated RBC % 0 % (0-5) 04/04/20 06:45 Differential Comment SCANNED 04/04/20 06:45 Diff Path Review June04/04/20 06:45 Platelet Estimate MKD DEC (ADEQ) 04/04/20 06:45 PT 16.6 SECONDS (11.7-14.9) H 04/04/20 06:45 INR 1.4 04/04/20 06:45 APTT 35.5 Seconds (24.1-36.2) 04/04/20 06:45 Sodium 142 mmol/L (136-145) 04/04/20 06:45 Potassium 3.5 mmol/L (3.5-5.1) 04/04/20 06:45 Chloride 105 mmol/L (98-107) 04/04/20 06:45 Carbon Dioxide 30.0 mmol/L (21.0-32.0) 04/04/20 06:45 Anion Gap 7 (5-15) 04/04/20 06:45 BUN 9 mg/dL (7-18) 04/04/20 06:45 Creatinine 0.52 mg/dL (0.70-1.30) L 04/04/20 06:45 Estim Creat Clear Calc 162.91 ml/min 04/04/20 06:45 Est GFR (MDRD) Af Amer 209 mL/min (>60) 04/04/20 06:45 Est GFR (MDRD) Non-Af 173 mL/min (>60) 04/04/20 06:45 BUN/Creatinine Ratio 17.3 RATIO (10-20) 04/04/20 06:45 Glucose 140 mg/dL (74-106) H 04/04/20 06:45 Lactic Acid 3.6 mmol/L (0.4-1.9) H* 04/04/20 07:30 Calcium 8.5 mg/dL (8.5-10.1) 04/04/20 06:45 Phosphorus 3.4 mg/dL (2.5-4.9) 04/04/20 06:45 Magnesium 1.5 mg/dL (1.6-2.6) L 04/04/20 06:45 Total Bilirubin 1.20 mg/dL (0.20-1.00) H 04/04/20 06:45 Direct Bilirubin 0.50 mg/dL (0.00-0.30) H 04/04/20 06:45 AST 75 U/L (15-37) H 04/04/20 06:45 ALT 54 U/L (16-61) 04/04/20 06:45 Alkaline Phosphatase 97 U/L (45-117) 04/04/20 06:45 Ammonia 62.0 umol/L (11-32) H 04/04/20 07:30 Troponin I < 0.015 ng/mL (<0.045) 04/04/20 06:45 Total Protein 6.9 g/dL (6.4-8.2) 04/04/20 06:45 Albumin 3.1 g/dL (3.2-5.0) L 04/04/20 06:45 Globulin 3.8 g/dL (2.2-4.2) 04/04/20 06:45 Amylase 170 U/L (25-115) H 04/04/20 06:45 Lipase 521 U/L (73-393) H 04/04/20 06:45 Ethyl Alcohol 48.0 mg/dL 04/04/20 07:30 - EKG Initial EKG Interpretation: Sinus Rhythm - EKG demonstrates a sinus rhythm at a rate of 98 with PVC noted. No concerning features of ACS. - Medical Decision Making Was established and the patient received IV fluids, Zofran and later Phenergan. At the time of this dictation his nausea has significantly improved. He also received 1 g of Rocephin and I placed him on octreotide. He also received Protonix. Patient's hemoglobin is 14. He is thrombocytopenic. Ammonia level elevated at 66. Lactic acid is also elevated. HR is improved from 110 to 90. BP remains stable. Because of his esophageal varices and the fact that he presented with upper GI bleeding with the above findings I think it is reasonable to transfer him to a center that has higher level of GI capabilities. He has been to [facility] before and I spoke to the patient about this. He is agreeable to transfer. - Critical Care Time Critical care time (excluding procedures): 30-74 minutes - 35 minutes ED Disposition - Plan for ED Patient: Disposition: [facility] Diagnosis: Esophageal varices in alcoholic cirrhosis, Hypomagnesemia, Thrombocytopenia, Upper GI bleeding, Alcohol abuse Referrals: Alice Cuellar DO [Primary Care Provider] -
[2020-04-04] MEDS: 0.9% Normal Saline 1,000 ML 1000 ML IV (07:19)
[2020-04-04] MEDS: Ondansetron 4 MG/2 ML Vial IV (07:20)
[2020-04-04 07:30] LABS: International Normalized Ratio 1.4; Partial Thromboplast Time 35.5 Seconds (24.1-36.2); Prothrombin Time (Protime)PT. 16.6 SECONDS (11.7-14.9)
--- NOTE | 2020-04-04 07:30 | RAD_ITS ---
HISTORY: N/V, VOMITING BROWN. HX AORTIC STOMACH ANEURYSM ADDITIONAL HISTORY: None provided. EXAMINATION/TECHNIQUE: XR Chest 1 View AP/PA Number of images including paperwork: 1 COMPARISON: 08/20/2018, 06/01/2018, 03/20/2018 FINDINGS: LUNGS AND PLEURA: No dense consolidation. Low lung volumes with basilar vascular crowding. CARDIAC SILHOUETTE: Unremarkable. MEDIASTINUM AND ALECIA: Unremarkable. UPPER ABDOMEN: Unremarkable. SKELETON AND SOFT TISSUES: No acute skeletal findings. OTHER DEVICES AND HARDWARE: None. RAD/Chest 1 View (Portable) IMPRESSION: Low lung volumes without definite acute abnormality. at 0740 Reported and signed by: Gabriella Cardozo MD Electronically Signed: Gabriella Cardozo MD at 7:40 EST Tel , Service support ,
[2020-04-04 07:31] LABS: Absolute Lymphocyte Count 0.96 X10^3/uL (0.83-4.51); Absolute Neutrophil Count 2.4 X10^3/uL (2.0-7.7); Basophil# 0.03 X10^3/uL; Basophil% 0.7 % (0-1); Eosinophil# 0.03 X10^3/uL; Eosinophils% 0.7 % (0-5); Hematocrit 40.4 % (40-54); Hemoglobin 14.1 g/dL (13.0-16.5); Lymphocyte # 0.96 X10^3/ul (4.0); Lymphocyte % 23.2 % (19-41); Mean Corp Hgb Conc 34.9 g/dL (32-36); Mean Corpuscular Hgb 35.1 pg (27.0-32.0); Mean Corpuscular Volume 100.5 fL (80-94); Mean Platelet Vol. 10.4 fl (6.2-12.0); Monocyte# 0.72 X10^3/uL; Monocyte% 17.4 % (0-10); NRBC Flagged by Analyzer 0 % (0-5); Neutrophil # 2.39 X10^3/uL (2.7-7.7); Neutrophil % 57.8 % (47-70); POSITIVE COUNT YES; RBC Distribution Width CV 13.3 % (11.6-14.6); RBC Distribution Width SD 49.5 fl (35.1-43.9); Red Blood Count 4.02 M/mm3 (4.6-6.2); White Blood Count 4.1 K/mm3 (4.4-11.0)
[2020-04-04 07:33] LABS: Differential Indicated SCAN CRITERIA MET; Platelet Count 44 K/mm3 (150-450)
[2020-04-04 07:36] LABS: Phosphorus 3.4 mg/dL (2.5-4.9)
[2020-04-04 07:38] LABS: AST(SGOT) 75 U/L (15-37); Alanine Aminotransfer ALT/SGPT 54 U/L (16-61); Albumin, Serum 3.1 g/dL (3.2-5.0); Alkaline Phosphatase 97 U/L (45-117); Amylase 170 U/L (25-115); Anion Gap 7 (5-15); BUN 9 mg/dL (7-18); BUN/Creat Ratio 17.3 RATIO (10-20); Calcium,Total 8.5 mg/dL (8.5-10.1); Chloride 105 mmol/L (98-107); Creatinine, Serum 0.52 mg/dL (0.70-1.30); EST Glomerular Filtration Rate 173 mL/min (>60); Est Glom Filt Rate - Afr Amer 209 mL/min (>60); Estimated Creatinine Clearance 162.91 ml/min; Globulin 3.8 g/dL (2.2-4.2); Glucose 140 mg/dL (74-106); Lipase 521 U/L (73-393); Magnesium 1.5 mg/dL (1.6-2.6); Potassium 3.5 mmol/L (3.5-5.1); Protein, Total 6.9 g/dL (6.4-8.2); Sodium Level 142 mmol/L (136-145)
[2020-04-04] MEDS: Ceftriaxone 1 GM/50 ML BAG IV (07:40)
[2020-04-04] MEDS: proMETHazine 25 MG/ML Syringe 12.5 MG IV ×2 (07:48→08:54)
[2020-04-04] MEDS: 0.9% Normal Saline 1,000 ML 250 ML IV (07:48)
[2020-04-04 08:10] LABS: Lactic Acid 3.6 mmol/L (0.4-1.9)
[2020-04-04 08:13] LABS: Differential Comment SCANNED; Platelet Estimate MKD DEC (ADEQ)
[2020-04-04 08:31] VITALS: BP 116/71; PULSE 90; RESP 23; O2SAT 94
[2020-04-04 09:17] VITALS: BP 142/78; PULSE 87; RESP 21; TEMP 36.5; O2SAT 94
--- NOTE | 2020-04-04 09:51 | NURSING ---
CALLED [facility]. ETA IS 75 MIN
--- NOTE | 2020-04-04 10:36 | ED.RN ---
ems at bedside
[2020-04-04 11:50] LABS: Reflex Lactate? Y
[2020-04-05 12:10] LABS: Pathologist Review Reviewed
== END 2020-04-04 11:02 | disposition short-term general hospital (02) ==
PROVIDERS: Emergency Provider Emergency Medicine; PCP Family Medicine
DX: I85.10 Secondary esophageal varices without bleeding (principal); D69.6 Thrombocytopenia, unspecified; E83.42 Hypomagnesemia; F10.10 Alcohol abuse, uncomplicated; E66.9 Obesity, unspecified; I10 Essential (primary) hypertension; I73.9 Peripheral vascular disease, unspecified; Z87.891 Personal history of nicotine dependence; K92.2 Gastrointestinal hemorrhage, unspecified
CPT/HCPCS: 71045; 80048; 80076; 82077; 82140; 82150; 83605; 83690; 83735; 84100; 84484; 85025; 85610; 85730; 86850; 86900; 86901; 93005; 99285; J7030; A4216; J2405; J3490

== ENCOUNTER 2020-04-16 00:10 | Emergency (ER) | payer OTHER, SELFPAY ==
[2020-04-16] VITALS (9 sets, daily range): BP systolic 115–147; BP diastolic 69–89; PULSE 74–113; RESP 12–20; TEMP 36.2; O2SAT 97–100; BMI 27.0
--- NOTE | 2020-04-16 00:22 | EKG12_ITS ---
Test Reason : DYSRYTHMIA Blood Pressure : / mmHG Vent. Rate : 101 BPM Atrial Rate : 101 BPM P-R Int : 178 ms QRS Dur : 088 ms QT Int : 366 ms P-R-T Axes : 054 068 049 degrees QTc Int : 474 ms Sinus tachycardia Otherwise normal ECG Confirmed by AMANDA DAN, EDYANIRA ([id number]), rewrite editor STEWART GARIBAY ([id number]) on 04/19/2020 1:39:49 PM Referred By: BABITA Confirmed By:DEYANIRA PATEL MD
--- NOTE | 2020-04-16 00:22 | CT_ITS ---
HISTORY: FARNSWORTH AFTER FALL HITTING POSTERIOR HEAD ON CONCRETE YESTERDAY ADDITIONAL HISTORY: None provided. COMPARISON: 07/03/2011 EXAMINATION/TECHNIQUE: CT Head or Brain W/O Contrast Injection. Axial, coronal and sagittal images. Number of images including paperwork: 246. A radiation dose optimization technique was used for this scan. FINDINGS: BRAIN: No acute hemorrhage or mass. No definite acute infarct; MRI more sensitive. White matter hypodensity is nonspecific but most commonly seen with chronic ischemic changes. Generalized atrophy. VENTRICULAR SYSTEM: No hydrocephalus. PARANASAL SINUSES AND MASTOIDS: No air-fluid level in the imaged extent. ORBITS: Unremarkable imaged extent. SKELETON AND SOFT TISSUES: Calvarium intact. ASPECTS score: Not applicable. CT/Brain/Head without Contrast IMPRESSION: No acute intracranial abnormality. Chronic involutional and white matter changes. Individualized dose optimization techniques were used for this CT. at 0105 Reported and signed by: Gabriella Cardozo MD Electronically Signed: Gabriella Cardozo MD at 1:05 EST Tel , Service support ,
[2020-04-16] MEDS: 0.9% Normal Saline 1,000 ML 150 ML IV (00:34)
[2020-04-16] MEDS: Ondansetron 4 MG/2 ML Vial IV (00:34)
[2020-04-16] MEDS: Morphine 4 MG/ML Syringe IV (00:34)
[2020-04-16 00:41] LABS: Absolute Lymphocyte Count 1.84 X10^3/uL (0.83-4.51); Absolute Neutrophil Count 1.5 X10^3/uL (2.0-7.7); Basophil# 0.02 X10^3/uL; Basophil% 0.5 % (0-1); Eosinophil# 0.05 X10^3/uL; Eosinophils% 1.3 % (0-5); Hematocrit 36.5 % (40-54); Hemoglobin 12.6 g/dL (13.0-16.5); Lymphocyte # 1.84 X10^3/ul (4.0); Lymphocyte % 48.5 % (19-41); Mean Corp Hgb Conc 34.5 g/dL (32-36); Mean Corpuscular Hgb 35.4 pg (27.0-32.0); Mean Corpuscular Volume 102.5 fL (80-94); Mean Platelet Vol. 10.4 fl (6.2-12.0); Monocyte% 10.6 % (0-10); NRBC Flagged by Analyzer 0 % (0-5); Neutrophil # 1.47 X10^3/uL (2.7-7.7); Neutrophil % 38.8 % (47-70); POSITIVE COUNT YES; Platelet Count 54 K/mm3 (150-450); RBC Distribution Width CV 13.9 % (11.6-14.6); RBC Distribution Width SD 53.1 fl (35.1-43.9); Red Blood Count 3.56 M/mm3 (4.6-6.2); White Blood Count 3.8 K/mm3 (4.4-11.0)
[2020-04-16 00:42] LABS: Differential Indicated SCAN CRITERIA MET
[2020-04-16 01:02] LABS: Platelet Estimate MOD DEC (ADEQ)
[2020-04-16 01:04] LABS: Anion Gap 7 (5-15); BUN 5 mg/dL (7-18); BUN/Creat Ratio 7.8 RATIO (10-20); Calcium,Total 7.7 mg/dL (8.5-10.1); Chloride 110 mmol/L (98-107); Creatinine, Serum 0.64 mg/dL (0.70-1.30); EST Glomerular Filtration Rate 136 mL/min (>60); Est Glom Filt Rate - Afr Amer 165 mL/min (>60); Estimated Creatinine Clearance 132.36 ml/min; Glucose 117 mg/dL (74-106); Potassium 3.7 mmol/L (3.5-5.1); Sodium Level 144 mmol/L (136-145)
--- NOTE | 2020-04-16 01:20 | ED.DCSUM_ITS ---
- ER Visit Summary Date of Service: 04/16/20 Chief Complaint: [Head injury] History of Present Illness: The patient is a 59 M [presents to the emergency department complaint of a head injury that occurred yesterday. Patient states that he had gotten up in the kitchen and felt lightheaded and passed out str iking the back of his head on a tile floor. Patient thinks he may have lost consciousness for about 15 seconds or so. Since that time has been having a headache to the back of his head. He denies any neck pain. Patient has had some nausea and vomiting x2. Patient has history of alcohol abuse and alcoholic cirrhosis. History of hypertension. Patient has history of peripheral vascular disease. Patient has had prior admissions for upper GI bleeds. Patient admits to drinking 1 beer tonight.] Physical Examination: [HEENT-PERRLA, EOMI. Cranial nerves II through XII gr ossly intact. TMs clear. Mucous membranes moist. No adenopathy. No external evidence of trauma to his head. No C-spine tenderness on palpation. Cardiovascular-regular rate and rhythm without murmur or ectopy Lungs-clear to auscultation, chest wall stable without crepitus or subcu emphysema Abdomen-normoactive bowel sounds, soft, nontender, no rebound or rigidity, no peritoneal signs. Extremities-intact ?4, normal range of motion, normal pulses, atraumatic] Test Results: [EKG obtained arrival shows sinus rhythm with a ventricular rate of 101 bpm with no acute segment changes. CBC with differential showed a white count 3.8, hemoglobin 12.6, hematocrit 36, platelets 54. Chemistries unremarkable. Troponin was less than 0.015. CT scan of the brain without cont rast showed nothing acute. EtOH level obtained was 234.] Emergency Department Course and Treatment: [Patient had an IV line established on arrival. He was medicated with morphine and Zofran on arrival.] Treatment Plan: [Patient to follow-up with primary care physician in 3 to 5 days. He will be given a prescription for Zofran. We will attempt to find him a ride home however he states that his is at work and he will not be able to be discharged until alcohol normalizes.] Disposition: [Discharged home in stable condition] Impression: [Closed head injury/concussion Alcohol intoxication] This note was generated with [employer] dictation software. It may contain incorrect words, spelling, and punctuation that were not noted in review of the chart prior to signing ED Disposition - Plan for ED Patient: Referrals: Alice Cuellar DO [Primary Care Provider] -
--- NOTE | 2020-04-16 01:22 | ED.DEP ---
ED Disposition - Plan for ED Patient: Instructions: ED Concussion, ED Alcohol Intoxication Prescriptions: Ondansetron [Zofran Odt] 4 mg PO Q8H PRN PRN #10 tab PRN Reason: Nausea Prescription Printed Referrals: Alice Cuellar DO [Primary Care Provider] - 3-5 Days
[2020-04-16] MEDS: Acetaminophen 500 MG Tablet 1000 MG PO (02:57)
== END 2020-04-16 09:06 | disposition home or self-care (01) ==
PROVIDERS: Emergency Provider Emergency Medicine; PCP Family Medicine
DX: S06.0X1A Concussion with loss of consciousness of 30 minutes or less, initial encounter (principal); W18.00XA Striking against unspecified object with subsequent fall, initial encounter; Y93.89 Activity, other specified; Y92.000 Kitchen of unspecified non-institutional (private) residence as the place of occurrence of the external cause; Y99.9 Unspecified external cause status; F10.129 Alcohol abuse with intoxication, unspecified; Y90.7 Blood alcohol level of 200-239 mg/100 ml; I10 Essential (primary) hypertension; I73.9 Peripheral vascular disease, unspecified
CPT/HCPCS: 70450; 80048; 82077; 84484; 85025; 93005; 99285; J2405

== ENCOUNTER 2020-04-18 08:06 | Emergency (ER) | payer OTHER, SELFPAY ==
[2020-04-16 00:12] VITALS: BMI 27.0
[2020-04-18 08:13] VITALS: BP 159/73; PULSE 114; RESP 26; TEMP 36.4; O2SAT 99; BMI 26.9
--- NOTE | 2020-04-18 08:56 | EKG12_ITS ---
Test Reason : Blood Pressure : / mmHG Vent. Rate : 116 BPM Atrial Rate : 116 BPM P-R Int : 152 ms QRS Dur : 092 ms QT Int : 372 ms P-R-T Axes : 000 062 048 degrees QTc Int : 517 ms Sinus tachycardia Otherwise normal ECG Confirmed by LAUREEN MCBRIDE MD ([id number]), video tape editor ANNABELLA TRIANA ([id number]) on 04/23/2020 10:35:07 AM Referred By: PHYLLIS
[2020-04-18 09:18] LABS: Absolute Lymphocyte Count 0.92 X10^3/uL (0.83-4.51); Absolute Neutrophil Count 5.5 X10^3/uL (2.0-7.7); Basophil# 0.03 X10^3/uL; Basophil% 0.4 % (0-1); Hematocrit 32.9 % (40-54); Hemoglobin 11.3 g/dL (13.0-16.5); Lymphocyte # 0.92 X10^3/ul (4.0); Lymphocyte % 12.8 % (19-41); Mean Corp Hgb Conc 34.3 g/dL (32-36); Mean Corpuscular Hgb 34.9 pg (27.0-32.0); Mean Corpuscular Volume 101.5 fL (80-94); Mean Platelet Vol. 10.3 fl (6.2-12.0); Monocyte# 0.72 X10^3/uL; NRBC Flagged by Analyzer 0 % (0-5); Neutrophil % 76.4 % (47-70); POSITIVE COUNT YES; Platelet Count 64 K/mm3 (150-450); RBC Distribution Width CV 13.4 % (11.6-14.6); RBC Distribution Width SD 50.6 fl (35.1-43.9); Red Blood Count 3.24 M/mm3 (4.6-6.2); White Blood Count 7.2 K/mm3 (4.4-11.0)
[2020-04-18 09:20] LABS: Differential Indicated SCAN CRITERIA MET
[2020-04-18 09:21] LABS: International Normalized Ratio 1.4
[2020-04-18] MEDS: Oxymetazoline 0.05% 1 SPRAY SPRAY.BTL 2 SPRAY NASAL (09:21)
[2020-04-18] MEDS: Lidocaine 4% 5 ML Ampul 2 ML INHALATION (09:21)
[2020-04-18] MEDS: Ondansetron 4 MG/2 ML Vial IV (09:22)
--- NOTE | 2020-04-18 09:26 | ED.DCSUM_ITS ---
History of Present Illness Chief Complaint: Fall Informant: Patient Onset: Hours Context: Sudden Onset Timing: Intermittent Quality: Vomiting blood Location: Upper GI bleed Current Severity: Moderate Maximum Severity: Moderate Worsened by: Possibly coagulopathy due to liver disease, cirrhosis, varices had an alcoh Relieved by: Nothing Associated Symptoms: Patient reports dark stool. He is on lactulose and iron. Narrative: Patient is a 59-year-old male with history of cirrhosis due to alcohol use. Last drink was yesterday. He does have history of hepatic encephalopathy. He is on lactulose as well as iron. He denies abdominal pain. He denies shortness of breath. He states he feels terrible . He does report lightheadedness with sitting up or standing. He denies headache, visual, ocular auditory symptoms. He denies difficulty breathing. He denies chest discomfort. He denies urinary symptoms. He denies paresthesia, anesthesia or motor weakness. He denies exposure to Covid. Prior similar symptoms: Yes Recent Illness/Hospitalization: Yes - Past Medical History (1) Benign essential hypertension Status: Chronic (2) Cirrhosis Status: Chronic (3) Diastolic dysfunction Status: Chronic (4) Esophageal varices in alcoholic cirrhosis Status: Chronic (5) History of smoking Status: Chronic (6) PVD (peripheral vascular disease) Status: Chronic (7) Thrombocytopenia Status: Chronic Past Medical History - Allergies and Home Meds Allergies/Adverse Reactions: Allergies No Known Allergies Allergy (Verified 04/04/20 06:44) Primary Care Physician: Alice Cuellar DO [Primary Care Provider] - Prior records reviewed: Yes Surgical History: - - Aortic aneurysm repair Lives: Alone Smoking Status: Former smoker Alcohol: Occasional Drugs: None - Family History Maternal Family History: Reports: Cancer Paternal Family History: Reports: - - Reportedly his father from lupus Review of Systems General: Reports: Malaise. Denies: Chills, Fever, Subjective Eyes: Denies: Visual changes - bilaterally, Blurred Vision - bilaterally ENT: Reports: Rhinorrhea. Denies: Bilateral ear pain, Sore throat Cardiovascular: Denies: Chest pain, Palpitations Respiratory: Reports: Cough. Denies: Dyspnea, Sputum, Dyspnea on exertion, Orthopnea, Paroxysmal nocturnal dyspnea Gastrointestinal: Reports: Nausea, Vomiting. Denies: Abdominal pain, Diarrhea, Melena, Hematochezia Genitourinary: Denies: Dysuria, Hematuria, Frequency Musculoskeletal: Denies: Myalgias, Arthralgias, Neck pain, Back pain, Swelling, Extremity Pain Skin: Reports: Rash. Denies: Abscess, Abrasions, Wounds Neurological: Reports: Weakness. Denies: Headache, Parasthesia Psych: Reports: Depression. Denies: Anxiety Endocrine: Denies: Polyuria, Polydipsia Hematologic: Reports: Easy bruising. Denies: Easy bleeding Allergy: Denies: Uticaria Physical Exam Vital Signs/Narrative: Vital Signs Temp Pulse Resp BP Pulse Ox 04/18/20 08:13 97.5 F L 114 H 26 H 159/73 H 99 Inital Vital Signs reviewed: Yes General: Well developed, Acute Distress, - - Looks older than reported age. Head: Normocephalic, Atraumatic Eyes: Perrl, EOMI. Negative for: Pale conjunctiva, Scleral icterus ENT: Moist mucous membranes, No rhinorrhea Neck: Supple, Nontender, No lymphadenopathy, No JVD Cardiovascular: Regular rhythm, No murmurs, Normal S1, Tachycardia Respiratory: No distress, CTA bilaterally, Chest nontender Abdomen: Soft, Nontender, Nondistended, Normal bowel sounds, No masses Back: Nontender, Normal Inspection. Negative for: CVA tenderness Extremities: Nontender Skin: Normal color, Rash - Venous stasis dermatitis. Negative for: Cyanosis, Diaphoresis, Jaundice, No Trauma Neurological: Alert, Oriented x3, Cranial nerves II-XII grossly intact, Normal Strength, Normal Sensation Psychological: Depressed Diagnostic/Tx/Re-eval Chest X-Ray - ED: 1 View, Read by ED Physician, - - To be reveals proper position of NG. There is no evidence of infiltrate lower lung field. There is no evidence of pneumoperitoneum. 04/18/20 09:40 Abdomen Single View (Portable) [RAD] Stat Laboratory Results 04/18/20 04/18/20 04/18/20 08:45 08:45 08:45 WBC 7.2 RBC 3.24 L Hgb 11.3 L Hct 32.9 L MCV 101.5 H MCH 34.9 H MCHC 34.3 RDW Std Deviation 50.6 H RDW Coeff of Delilah 13.4 Plt Count 64 L MPV 10.3 Immature Gran % (Auto) 0.400 Neut % (Auto) 76.4 H Lymph % (Auto) 12.8 L [place] % (Auto) 10.0 Eos % (Auto) 0.0 Baso % (Auto) 0.4 Absolute Neuts (auto) 5.5 Absolute Lymphs (auto) 0.92 Nucleated RBC % 0 Platelet Estimate MOD DEC PT 17.0 H INR 1.4 Sodium 146 H Potassium 2.9 L Chloride 109 H Carbon Dioxide 25.0 Anion Gap 12 BUN 8 Creatinine 0.47 L Estim Creat Clear Calc 180.24 Est GFR (MDRD) Af Amer 237 Est GFR (MDRD) Non-Af 195 BUN/Creatinine Ratio 17.1 Glucose 141 H Lactic Acid Calcium 7.2 L Total Bilirubin 1.20 H AST 72 H ALT 44 Alkaline Phosphatase 85 Total Protein 5.6 L Albumin 2.6 L Globulin 3.0 Albumin/Globulin Ratio 0.9 Blood Type Antibody Screen 04/18/20 04/18/20 09:05 09:05 WBC RBC Hgb Hct MCV MCH MCHC RDW Std Deviation RDW Coeff of Delilah Plt Count MPV Immature Gran % (Auto) Neut % (Auto) Lymph % (Auto) [place] % (Auto) Eos % (Auto) Baso % (Auto) Absolute Neuts (auto) Absolute Lymphs (auto) Nucleated RBC % Platelet Estimate PT INR Sodium Potassium Chloride Carbon Dioxide Anion Gap BUN Creatinine Estim Creat Clear Calc Est GFR (MDRD) Af Amer Est GFR (MDRD) Non-Af BUN/Creatinine Ratio Glucose Lactic Acid 8.0 H* Calcium Total Bilirubin AST ALT Alkaline Phosphatase Total Protein Albumin Globulin Albumin/Globulin Ratio Blood Type Cancelled Antibody Screen Cancelled - Rhythm Strip Rhythm Strip: Sinus Tach Rate: 118 - EKG Initial EKG Interpretation: Sinus Tachycardia - Sinus tachycardia with a ventricular rate 116. AR interval is 152 ms. Cures duration 92 ms. QT duration 372 ms. [place] is normal. Other than the sinus tachycardia the EKG is normal. - Medical Decision Making With history of upper GI bleed and varices and vomiting blood in what appears to be coffee grounds on sheet NG was ordered to determine if patient is presently actively bleeding. Because there is concern for varices we will treat with Rocephin. If there is bright red blood will initiate octreotide. This may also represent a gastritis or peptic ulcer bleed. He has been typed and screened. Appropriate blood work has been ordered and occluding PT/INR to assess liver function. He is not on the transplant list. Fact his stool is dark due to iron and lactulose. He denied black or sticky stool. - Critical Care Time Critical care time (excluding procedures): 30-74 minutes - Critical care time 34 minutes this includes time for pain history, review of prior records, performing history, documentation, interpretation of laboratory results and i nitiating therapy. Discussion with general surgeon on-call for EGD, Discussing w/Patient &/or Family/Medical Authorization Specialist, Discussing w/Consultants - Was discussed Dr. Sen Rivera who recommended transfer because patient may require therapy by interventional radiologist. Case was discussed with Dr. Tim Love the [employer] at [facility]. He has accepted patient. Patient is going to T-tube bed 12., Arranging Admission or Transfer - Critical care transport/ACLS transport by physicians. Arrival time is 1 hour. Awaiting callback from [employer] at [facility]. Patient was transferred to [facility] because there are ICU beds and the GI specialist for some health system are both presently at [facility] ED Disposition - Plan for ED Patient: Diagnosis: Acute upper GI hemorrhage, Nontraumatic hemorrhagic shock, History of esophageal varices with bleeding, Hypokalemia, Hypernatremia, Thrombocytopenia Referrals: Alice uCellar DO [Primary Care Provider] -
[2020-04-18 09:27] LABS: ALB/GLOB Ratio 0.9 RATIO (0.9-2.4); AST(SGOT) 72 U/L (15-37); Alanine Aminotransfer ALT/SGPT 44 U/L (16-61); Albumin, Serum 2.6 g/dL (3.2-5.0); Alkaline Phosphatase 85 U/L (45-117); Anion Gap 12 (5-15); BUN 8 mg/dL (7-18); BUN/Creat Ratio 17.1 RATIO (10-20); Calcium,Total 7.2 mg/dL (8.5-10.1); Chloride 109 mmol/L (98-107); Creatinine, Serum 0.47 mg/dL (0.70-1.30); EST Glomerular Filtration Rate 195 mL/min (>60); Est Glom Filt Rate - Afr Amer 237 mL/min (>60); Estimated Creatinine Clearance 180.24 ml/min; Glucose 141 mg/dL (74-106); Potassium 2.9 mmol/L (3.5-5.1); Protein, Total 5.6 g/dL (6.4-8.2); Sodium Level 146 mmol/L (136-145)
[2020-04-18 09:36] LABS: Platelet Estimate MOD DEC (ADEQ)
--- NOTE | 2020-04-18 09:40 | RAD_ITS ---
STUDY: X-RAY - ABDOMEN/PELVIS REASON FOR EXAM: Male, 59 years old. NG PLACEMENT TECHNIQUE: Single AP view of the abdomen / pelvis. COMPARISON: None. FINDINGS: Normal visualized lung bases. There is an unremarkable bowel gas pattern. The tip of the NG tube is in the fundal portion of the stomach. Normal soft tissue structures. Normal visualized osseous structures. RAD/Abdomen Single View (Portable) IMPRESSION: The tip of the NG tube is in the fundal portion of the stomach. Electronically Signed: Mor Hawkins MD at 9:58 EST , Service support ,
--- NOTE | 2020-04-18 09:47 | NURSING ---
Dr. Arnie powersfied lactic acid 8.0
[2020-04-18] MEDS: Ceftriaxone 1 GM/50 ML BAG IV (09:55)
[2020-04-18] MEDS: Octreotide 0.1 MG/ML ML IV (10:14)
[2020-04-18] MEDS: LORazepam 2 MG/ML Syringe 1 MG IV (10:14)
[2020-04-18 10:26] VITALS: BP 158/84; PULSE 111; RESP 11; O2SAT 95
[2020-04-18 10:57] VITALS: BP 156/75; PULSE 124; RESP 20; TEMP 36.3; O2SAT 97
[2020-04-18 13:12] LABS: Reflex Lactate? Y
== END 2020-04-18 11:00 | disposition short-term general hospital (02) ==
PROVIDERS: Emergency Provider Emergency Medicine; PCP Family Medicine
DX: K92.0 Hematemesis (principal); R57.8 Other shock; E87.6 Hypokalemia; E87.0 Hyperosmolality and hypernatremia; D69.6 Thrombocytopenia, unspecified; I73.9 Peripheral vascular disease, unspecified; K74.60 Unspecified cirrhosis of liver; I10 Essential (primary) hypertension; Z87.891 Personal history of nicotine dependence
CPT/HCPCS: 74018; 80053; 83605; 85025; 85610; 86850; 86900; 86901; 87426; 93005; 94640; 96365; 96375; 99285; J7050; A4216; J2354; J2405; J3490

== ENCOUNTER 2020-04-26 22:20 | Emergency (ER) | payer OTHER, SELFPAY ==
[2020-04-26 22:20] VITALS: BP 162/78; PULSE 98; RESP 16; TEMP 36.2; O2SAT 100; BMI 27.6
--- NOTE | 2020-04-26 22:27 | EKG12_ITS ---
Test Reason : DYSRHYTHMIA Blood Pressure : / mmHG Vent. Rate : 091 BPM Atrial Rate : 091 BPM P-R Int : 180 ms QRS Dur : 094 ms QT Int : 388 ms P-R-T Axes : 048 047 046 degrees QTc Int : 477 ms Normal sinus rhythm Normal ECG Confirmed by ONDINA DAN, ROLAND ([id number]), scientific editor ANNABELLA TRIANA ([id number]) on 04/30/2020 9:59:29 AM Referred By: GRACIELA Confirmed By:PILLO NJ MD
--- NOTE | 2020-04-26 22:28 | ED.VIS.GEN ---
History of Present Illness Chief Complaint: Nausea/Vomiting Informant: Patient Onset: Today Context: Sudden Onset Timing: Continuous Current Severity: Moderate Maximum Severity: Moderate Narrative: The patient is a 59-year-old male with medical history significant for cirrhosis secondary to alcohol disease, esophageal varices, hypertension who presents to the emergency department with nausea and vomiting. Patient states his symptoms began suddenly about an hour ago. He states he had some abdominal cramping and is thrown up approximately 3 times. He denies any blood in the emesis. The patient was recently admitted with upper GI bleed [facility] about a week ago. He states that he underwent EGD. He states there was no active bleeding or banding. He is been compliant with his medications. States he occasionally drinks alcohol, but has really cut down. Prior similar symptoms: Yes Recent Illness/Hospitalization: Yes Past Medical History - Allergies and Home Meds Allergies/Adverse Reactions: Allergies No Known Allergies Allergy (Verified 04/04/20 06:44) Primary Care Physician: Alice Cuellar DO [Primary Care Provider] - Prior records reviewed: Yes Past Medical History: - - Prior GI bleed, alcoholic liver disease Surgical History: noncontributory, - - Aortic aneurysm repair Smoking Status: Current every day smoker - Family History Maternal Family History: Reports: Cancer Paternal Family History: Reports: - - Reportedly his father from lupus Review of Systems General: Denies: Chills, Fever, Sweats Eyes: Denies: Visual changes - bilaterally, Diplopia ENT: Denies: Rhinorrhea, Sore throat Cardiovascular: Denies: Chest pain, Palpitations Respiratory: Denies: Dyspnea, Cough, Dyspnea on exertion Gastrointestinal: Reports: Nausea, Vomiting. Denies: Abdominal pain, Diarrhea, Melena, Hematochezia Genitourinary: Denies: Dysuria, Hematuria, Frequency Musculoskeletal: Denies: Back pain, Extremity Pain Skin: Denies: Rash, Wounds Neurological: Denies: Headache, Weakness, Numbness Physical Exam Vital Signs/Narrative: Vital Signs Temp Pulse Resp BP Pulse Ox 04/26/20 22:20 97.2 F L 98 16 162/78 H 100 Inital Vital Signs reviewed: Yes General: Well nourished, Well developed, No Acute Distress Head: Normocephalic, Atraumatic Eyes: Perrl, EOMI ENT: Moist mucous membranes, No rhinorrhea Neck: Supple, Nontender Cardiovascular: Regular rate, Regular rhythm, No murmurs Respiratory: No distress, CTA bilaterally, Chest nontender Abdomen: Soft, Nontender, Nondistended, Normal bowel sounds Back: Nontender, Normal Inspection Extremities: Nontender, No edema Skin: Normal color, No rash Neurological: Alert, Oriented x3, Cranial nerves II-XII grossly intact, Normal Strength, Normal Sensation Psychological: Normal affect, Normal Mood Diagnostic/Tx/Re-eval Abnormal Lab Results 04/26/20 04/26/20 04/26/20 22:30 22:30 22:30 WBC 3.1 L RBC 3.13 L Hgb 10.7 L Hct 33.3 L MCV 106.4 H MCH 34.2 H MCHC 32.1 RDW Std Deviation 56.5 H RDW Coeff of Delilah 14.6 Plt Count 55 L MPV 10.0 Immature Gran % (Auto) 0.300 Neut % (Auto) 42.9 L Lymph % (Auto) 36.7 [place] % (Auto) 18.8 H Eos % (Auto) 1.0 Baso % (Auto) 0.3 Absolute Neuts (auto) 1.3 L Absolute Lymphs (auto) 1.15 Nucleated RBC % 0 Platelet Estimate MOD DEC RBC Morphology N CHROM Anisocytosis 1+ Macrocytosis 1+ Ovalocytes RARE PT 16.7 H INR 1.4 Sodium 143 Potassium 4.3 Chloride 110 H Carbon Dioxide 28.0 Anion Gap 5 BUN 4 L Creatinine 0.72 Estim Creat Clear Calc 117.66 Est GFR (MDRD) Af Amer 144 Est GFR (MDRD) Non-Af 119 BUN/Creatinine Ratio 5.6 L Glucose 133 H Lactic Acid Calcium 7.9 L Total Bilirubin 0.50 AST 39 H ALT 35 Alkaline Phosphatase 106 Total Protein 6.5 Albumin 2.9 L Globulin 3.6 Albumin/Globulin Ratio 0.8 L Lipase 290 Blood Type Antibody Screen 04/26/20 04/26/20 22:30 22:30 WBC RBC Hgb Hct MCV MCH MCHC RDW Std Deviation RDW Coeff of Delilah Plt Count MPV Immature Gran % (Auto) Neut % (Auto) Lymph % (Auto) [place] % (Auto) Eos % (Auto) Baso % (Auto) Absolute Neuts (auto) Absolute Lymphs (auto) Nucleated RBC % Platelet Estimate RBC Morphology Anisocytosis Macrocytosis Ovalocytes PT INR Sodium Potassium Chloride Carbon Dioxide Anion Gap BUN Creatinine Estim Creat Clear Calc Est GFR (MDRD) Af Amer Est GFR (MDRD) Non-Af BUN/Creatinine Ratio Glucose Lactic Acid 2.1 H* Calcium Total Bilirubin AST ALT Alkaline Phosphatase Total Protein Albumin Globulin Albumin/Globulin Ratio Lipase Blood Type A NEGATIVE Antibody Screen NEGATIVE - Medical Decision Making Patient presents with nausea and 2 episodes of emesis. There is nonbloody nonbilious. He states this feels different than his normal upper GI bleeds. He had recent EGD with no intervention. He states his been compliant with his medications. Metabolic work-up was pursued. He does have a mild anemia which is unchanged. The rest of his labs are essentially within normal limits. His lactic acid is mildly elevated 2.1, but in light of his chronic liver disease I do not feel this represents hypoperfusion. Patient was given fluids and antiemetics. He was observed for 3 hours. He had no further emesis. He denies any further nausea. He is able to drink. At this point, I do feel that he safe for outpatient therapy. I do not feel he needs readmission. The patient is comfortable with this plan of care. I did probation counselor him however that if he at any point he vomits and notices blood he should return. He is comfortable with this. Impression 1. Nausea vomiting ED Disposition - Plan for ED Patient: Instructions: ED Vomiting (Adult) Prescriptions: Ondansetron [Zofran Odt] 4 mg PO Q8H PRN PRN #10 tab PRN Reason: Nausea Prescription Printed Referrals: Alice Cuellar DO [Primary Care Provider] -
[2020-04-26 22:44] LABS: Absolute Lymphocyte Count 1.15 X10^3/uL (0.83-4.51); Absolute Neutrophil Count 1.3 X10^3/uL (2.0-7.7); Basophil# 0.01 X10^3/uL; Basophil% 0.3 % (0-1); Eosinophil# 0.03 X10^3/uL; Hematocrit 33.3 % (40-54); Hemoglobin 10.7 g/dL (13.0-16.5); Lymphocyte # 1.15 X10^3/ul (4.0); Lymphocyte % 36.7 % (19-41); Mean Corp Hgb Conc 32.1 g/dL (32-36); Mean Corpuscular Hgb 34.2 pg (27.0-32.0); Mean Corpuscular Volume 106.4 fL (80-94); Monocyte# 0.59 X10^3/uL; Monocyte% 18.8 % (0-10); NRBC Flagged by Analyzer 0 % (0-5); Neutrophil # 1.34 X10^3/uL (2.7-7.7); Neutrophil % 42.9 % (47-70); POSITIVE COUNT YES; Platelet Count 55 K/mm3 (150-450); RBC Distribution Width CV 14.6 % (11.6-14.6); RBC Distribution Width SD 56.5 fl (35.1-43.9); Red Blood Count 3.13 M/mm3 (4.6-6.2); White Blood Count 3.1 K/mm3 (4.4-11.0)
[2020-04-26 22:57] LABS: Differential Indicated SCAN CRITERIA MET
[2020-04-26] MEDS: Morphine 4 MG/ML Syringe IV (22:57)
[2020-04-26] MEDS: Ondansetron 4 MG/2 ML Vial IV (22:57)
[2020-04-26] MEDS: 0.9% Normal Saline 1,000 ML 1000 ML IV (22:57)
[2020-04-26 22:59] LABS: International Normalized Ratio 1.4; Prothrombin Time (Protime)PT. 16.7 SECONDS (11.7-14.9)
[2020-04-26 23:01] LABS: ALB/GLOB Ratio 0.8 RATIO (0.9-2.4); AST(SGOT) 39 U/L (15-37); Alanine Aminotransfer ALT/SGPT 35 U/L (16-61); Albumin, Serum 2.9 g/dL (3.2-5.0); Alkaline Phosphatase 106 U/L (45-117); Anion Gap 5 (5-15); BUN 4 mg/dL (7-18); BUN/Creat Ratio 5.6 RATIO (10-20); Calcium,Total 7.9 mg/dL (8.5-10.1); Chloride 110 mmol/L (98-107); Creatinine, Serum 0.72 mg/dL (0.70-1.30); EST Glomerular Filtration Rate 119 mL/min (>60); Est Glom Filt Rate - Afr Amer 144 mL/min (>60); Estimated Creatinine Clearance 117.66 ml/min; Globulin 3.6 g/dL (2.2-4.2); Glucose 133 mg/dL (74-106); Lipase 290 U/L (73-393); Potassium 4.3 mmol/L (3.5-5.1); Protein, Total 6.5 g/dL (6.4-8.2); Sodium Level 143 mmol/L (136-145)
[2020-04-26 23:11] LABS: Lactic Acid 2.1 mmol/L (0.4-1.9)
[2020-04-26 23:16] LABS: Platelet Estimate MOD DEC (ADEQ)
[2020-04-26 23:17] LABS: Anisocytosis 1+; Macrocytosis 1+; Ovalocyte RARE; Red Cell Morphology N CHROM NORMAL (NORM C&C)
[2020-04-26] MEDS: proMETHazine 25 MG/ML Syringe 12.5 MG IV (23:37)
[2020-04-26 23:39] VITALS: BP 106/48; PULSE 91; RESP 19; O2SAT 97
[2020-04-27 00:22] VITALS: BP 97/40; PULSE 94; RESP 15; O2SAT 98
[2020-04-27 02:37] LABS: Reflex Lactate? Y
== END 2020-04-27 01:04 | disposition home or self-care (01) ==
PROVIDERS: Emergency Provider Emergency Medicine; PCP Family Medicine
DX: R11.2 Nausea with vomiting, unspecified (principal); I10 Essential (primary) hypertension; F17.200 Nicotine dependence, unspecified, uncomplicated
CPT/HCPCS: 80053; 83605; 83690; 85025; 85610; 86850; 86900; 86901; 93005; 96361; 96374; 96375; 99284; J7030; A4216; J2405

== ENCOUNTER 2020-05-24 03:55 | Emergency (ER) | payer OTHER, SELFPAY ==
[2020-05-24 03:55] VITALS: BP 129/77; PULSE 90; RESP 18; TEMP 36.7; O2SAT 95; BMI 28.8
--- NOTE | 2020-05-24 04:00 | CT_ITS ---
STUDY: CT ABDOMEN AND PELVIS WITH CONTRAST REASON FOR EXAM: Male, 59 years old. abdominal pain RADIATION DOSAGE (If Supplied By Facility): CTDIvol = ( 15.15 ) mGy, DLP = ( 1167.70 ) mGycm TECHNIQUE: Transaxial images were obtained from the dome of the diaphragm to the symphysis pubis without oral contrast. IV 100mL Isovue-300 was administered. Sagittal and coronal images were reconstructed. Individualized dose optimization techniques were used for this CT. COMPARISON: None. FINDINGS: The visualized lung bases are unremarkable. The visualized portions of the heart are within normal limits. Nodular margins to the liver suggestive of cirrhosis. Small gallstones. There is mild splenomegaly. Spleen measures 15.4 cm in craniocaudad dimension. Normal pancreas. Large varices involving the right abdomen. Normal bilateral adrenal glands. Normal right kidney. Normal left kidney. Ascites right upper quadrant, right paracolic gutter and pelvis. Stomach not well distended limiting evaluation. Normal small intestine. Wall thickening involving the cecum, ascending colon and transverse colon. The appendix is visualized and appears normal. There is atherosclerotic calcification of the abdominal aorta, without a demonstrated aneurysm. Normal inferior vena cava. Normal retroperitoneum. No intra-abdominal free air. Normal urinary bladder. The prostate gland nonenlarged. Normal abdominal wall. Normal osseous structures. CT/Abdomen/Pelvis W IV Cont ONLY IMPRESSION: Colitis involving the right colon secondary to infection, inflammatory bowel disease or ischemia. Cirrhosis, splenomegaly, abdominal varices and abdominal pelvic ascites suggestive of chronic liver disease. Minimal cholelithiasis. Electronically Signed: Donald Corley MD at 5:23 EDT , Service support ,
--- NOTE | 2020-05-24 04:00 | ED.VIS.GEN ---
History of Present Illness Chief Complaint: Nausea/Vomiting Informant: Patient Narrative: 59-year-old male with past medical history of alcoholic cirrhosis presents with concern for abdominal pain. States that he began having pain with vomiting approximately 3 to 4 hours ago. Nonbloody nonbilious. States that his pain is aching and intermittent. Denies any chest pain, shortness of breath, fever, chills, cough, urinary symptoms. Patient does have a past medical history of esophageal varices. Denies any hemoptysis or melena. Patient also has a history of abdominal aortic aneurysm repair 6 years ago. Past Medical History - Allergies and Home Meds Allergies/Adverse Reactions: Allergies No Known Allergies Allergy (Verified 05/24/20 04:02) Primary Care Physician: Alice Cuellar DO [Primary Care Provider] - Prior records reviewed: Yes Past Medical History: - - chirrosis, AAA, esophageal varices Surgical History: noncontributory, - - Aortic aneurysm repair Lives: Alone Smoking Status: Current every day smoker Alcohol: Rare Drugs: None - Family History Maternal Family History: Reports: Cancer Paternal Family History: Reports: - - Reportedly his father from lupus Review of Systems General: Denies: Chills, Fever, Sweats Eyes: Denies: Visual changes - bilaterally, Diplopia ENT: Denies: Rhinorrhea, Sore throat Cardiovascular: Denies: Chest pain, Palpitations Respiratory: Denies: Dyspnea, Cough, Dyspnea on exertion Gastrointestinal: Reports: Abdominal pain, Nausea, Vomiting. Denies: Diarrhea, Melena, Hematochezia Genitourinary: Denies: Dysuria, Hematuria, Frequency Musculoskeletal: Denies: Back pain, Extremity Pain Skin: Denies: Rash, Wounds Neurological: Denies: Headache, Weakness, Numbness Physical Exam Inital Vital Signs reviewed: Yes General: Well nourished, Well developed, No Acute Distress Head: Normocephalic, Atraumatic Eyes: Perrl, EOMI ENT: Moist mucous membranes, No rhinorrhea Neck: Supple, Nontender Cardiovascular: Regular rate, Regular rhythm, No murmurs Respiratory: No distress, CTA bilaterally, Chest nontender Abdomen: Soft, Nondistended, Normal bowel sounds, - - TTP in the abdomen diffusely. No rebound or rigidity. Back: Nontender, Normal Inspection Extremities: Nontender, No edema Skin: Normal color, No rash Neurological: Alert, Oriented x3, Cranial nerves II-XII grossly intact, Normal Strength, Normal Sensation Psychological: Normal affect, Normal Mood Diagnostic/Tx/Re-eval Clinical Impression(s) from Imaging Studies Abdomen/Pelvis CT 05/24/20 04:00 IMPRESSION: Colitis involving the right colon secondary to infection, inflammatory bowel disease or ischemia. Cirrhosis, splenomegaly, abdominal varices and abdominal pelvic ascites suggestive of chronic liver disease. Minimal cholelithiasis. Electronically Signed: Donald Corley MD at 5:23 EDT , Service support , Laboratory Data 05/24/20 05/24/20 04:15 04:15 WBC 3.4 L RBC 3.68 L Hgb 12.0 L Hct 36.7 L MCV 99.7 H MCH 32.6 H MCHC 32.7 RDW Std Deviation 53.1 H RDW Coeff of Delilah 14.4 Plt Count 49 L* MPV 10.6 Immature Gran % (Auto) 0.000 Neut % (Auto) 43.7 L Lymph % (Auto) 38.1 [place] % (Auto) 16.4 H Eos % (Auto) 1.2 Baso % (Auto) 0.6 Absolute Neuts (auto) 1.5 L Absolute Lymphs (auto) 1.28 Nucleated RBC % 0 Diff Path Review May foll Sodium 141 Potassium 3.8 Chloride 107 Carbon Dioxide 27.0 Anion Gap 7 BUN 2 L Creatinine 0.54 L Estim Creat Clear Calc 156.88 Est GFR (MDRD) Af Amer 201 Est GFR (MDRD) Non-Af 166 BUN/Creatinine Ratio 3.7 L Glucose 142 H Calcium 7.7 L Total Bilirubin 0.70 AST 77 H ALT 36 Alkaline Phosphatase 126 H Total Protein 6.1 L Albumin 2.5 L Globulin 3.6 Albumin/Globulin Ratio 0.7 L Lipase 353 - Medical Decision Making Patient appears well and nontoxic. Vital signs within normal limits. Lab work shows chronic changes. CT shows ascites with a colitis. Patient's repeat exam at 0515 he is feeling improved. Abdomen remains benign. Will be given Cipro, Flagyl, Zofran for home. Will be given gastrointestinal follow-up. Asked to return for new or worsening symptoms. Patient agreeable and stable at time of discharge. Impression: 1. Colitis 2. Nausea and vomiting ED Disposition - Plan for ED Patient: Disposition: Home or Assisted Living Instructions: ED Vomiting (Adult) Prescriptions: Ciprofloxacin [Cipro] 500 mg PO BID #14 tab Prescription Printed metroNIDAZOLE [Flagyl] 500 mg PO BID #21 tablet Prescription Printed Ondansetron [Zofran Odt] 4 mg PO Q8H PRN PRN #10 tablet PRN Reason: Nausea Prescription Printed Referrals: Alice Cuellar DO [Primary Care Provider] - 2 Days Umang Lopez MD [NON-STAFF] - 5-7 Days
[2020-05-24] MEDS: 0.9% Normal Saline 1,000 ML 1000 ML IV (04:16)
[2020-05-24] MEDS: Ondansetron 4 MG/2 ML Vial IV (04:17)
[2020-05-24] MEDS: Morphine 4 MG/ML Syringe IV (04:18)
[2020-05-24 04:30] LABS: Absolute Lymphocyte Count 1.28 X10^3/uL (0.83-4.51); Absolute Neutrophil Count 1.5 X10^3/uL (2.0-7.7); Basophil# 0.02 X10^3/uL; Basophil% 0.6 % (0-1); Eosinophil# 0.04 X10^3/uL; Eosinophils% 1.2 % (0-5); Hematocrit 36.7 % (40-54); Lymphocyte # 1.28 X10^3/ul (4.0); Lymphocyte % 38.1 % (19-41); Mean Corp Hgb Conc 32.7 g/dL (32-36); Mean Corpuscular Hgb 32.6 pg (27.0-32.0); Mean Corpuscular Volume 99.7 fL (80-94); Mean Platelet Vol. 10.6 fl (6.2-12.0); Monocyte# 0.55 X10^3/uL; Monocyte% 16.4 % (0-10); NRBC Flagged by Analyzer 0 % (0-5); Neutrophil # 1.47 X10^3/uL (2.7-7.7); Neutrophil % 43.7 % (47-70); POSITIVE COUNT YES; RBC Distribution Width CV 14.4 % (11.6-14.6); RBC Distribution Width SD 53.1 fl (35.1-43.9); Red Blood Count 3.68 M/mm3 (4.6-6.2); White Blood Count 3.4 K/mm3 (4.4-11.0)
[2020-05-24 04:34] LABS: Platelet Count 49 K/mm3 (150-450)
[2020-05-24 04:35] LABS: Differential Indicated SCAN CRITERIA MET
[2020-05-24 04:44] LABS: ALB/GLOB Ratio 0.7 RATIO (0.9-2.4); AST(SGOT) 77 U/L (15-37); Alanine Aminotransfer ALT/SGPT 36 U/L (16-61); Albumin, Serum 2.5 g/dL (3.2-5.0); Alkaline Phosphatase 126 U/L (45-117); Anion Gap 7 (5-15); BUN 2 mg/dL (7-18); BUN/Creat Ratio 3.7 RATIO (10-20); Calcium,Total 7.7 mg/dL (8.5-10.1); Chloride 107 mmol/L (98-107); Creatinine, Serum 0.54 mg/dL (0.70-1.30); EST Glomerular Filtration Rate 166 mL/min (>60); Est Glom Filt Rate - Afr Amer 201 mL/min (>60); Estimated Creatinine Clearance 156.88 ml/min; Globulin 3.6 g/dL (2.2-4.2); Glucose 142 mg/dL (74-106); Lipase 353 U/L (73-393); Potassium 3.8 mmol/L (3.5-5.1); Protein, Total 6.1 g/dL (6.4-8.2); Sodium Level 141 mmol/L (136-145)
--- NOTE | 2020-05-24 08:22 | ED.RN ---
patients taxi arrives, pt assisted into wheelchair and helped out to taxi. states will be waiting at home with his walker to help him get into his home.
[2020-05-24 12:28] LABS: Pathologist Review Reviewed
== END 2020-05-24 08:21 | disposition home or self-care (01) ==
PROVIDERS: Emergency Provider Emergency Medicine; PCP Family Medicine
DX: K52.9 Noninfective gastroenteritis and colitis, unspecified (principal); R11.2 Nausea with vomiting, unspecified; R18.8 Other ascites; F17.200 Nicotine dependence, unspecified, uncomplicated; Z86.79 Personal history of other diseases of the circulatory system
CPT/HCPCS: 74177; 80053; 83690; 85025; 96361; 96374; 96375; 99285; J7030; Q9967; J2405

== ENCOUNTER 2020-06-08 01:33 | Emergency (ER) | payer OTHER, SELFPAY ==
[2020-06-08 01:33] VITALS: BP 171/87; PULSE 120; RESP 15; TEMP 37.1; O2SAT 98; BMI 27.4
[2020-06-08 01:37] VITALS: PULSE 120
--- NOTE | 2020-06-08 01:53 | ED.DCSUM_ITS ---
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 He denies fever, chills night sweats. He denies trauma. He has no other complaints. He did admit to drinking when asked. He states he had one beer. Patient denies hematemesis, melena medic easier. Prior similar symptoms: No Recent Illness/Hospitalization: Yes - Past Medical History (1) Intractable nausea and vomiting Status: Acute (2) Benign essential hypertension Status: Chronic (3) Cirrhosis Status: Chronic (4) Diastolic dysfunction Status: Chronic (5) Esophageal varices in alcoholic cirrhosis Status: Chronic (6) History of smoking Status: Chronic (7) PVD (peripheral vascular disease) Status: Chronic (8) Thrombocytopenia Status: Chronic Past Medical History - Allergies and Home Meds Allergies/Adverse Reactions: Allergies No Known Allergies Allergy (Verified 05/24/20 04:02) Primary Care Physician: Alice Cuellar DO [Primary Care Provider] - Prior records reviewed: Yes Surgical History: noncontributory, - - Aortic aneurysm repair Lives: Alone Smoking Status: Current every day smoker Alcohol: Heavy Drugs: None - Family History Maternal Family History: Reports: Cancer Paternal Family History: Reports: - - Reportedly his father from lupus Review of Systems General: Denies: Chills, Fever, Malaise, Subjective, Sweats Eyes: Denies: Visual changes - bilaterally, Blurred Vision - bilaterally ENT: Denies: Rhinorrhea, Sore throat Cardiovascular: Denies: Chest pain, Palpitations Respiratory: Reports: Cough - Chronic. Denies: Dyspnea, Dyspnea on exertion Gastrointestinal: Denies: Abdominal pain, Nausea, Vomiting Genitourinary: Denies: Dysuria, Hematuria, Frequency Musculoskeletal: Reports: Myalgias, Arthralgias, Swelling, Extremity Pain. Denies: Neck pain Skin: Denies: Rash, Wounds Neurological: Denies: Weakness, Parasthesia Endocrine: Denies: Polyuria, Polydipsia Hematologic: Denies: Easy bleeding Allergy: Denies: Uticaria, Swelling of the mouth Physical Exam Vital Signs/Narrative: Vital Signs Temp Pulse Resp BP Pulse Ox 06/08/20 01:37 120 H 06/08/20 01:33 98.7 F 120 H 15 171/87 H 98 Inital Vital Signs reviewed: Yes General: Well nourished, Well developed, Acute Distress Head: Normocephalic, Atraumatic Eyes: Perrl, EOMI. Negative for: Pale conjunctiva ENT: Moist mucous membranes, No rhinorrhea Neck: Supple, Nontender, No lymphadenopathy, No JVD Cardiovascular: Regular rhythm, No murmurs, Normal S1, Normal S2, Tachycardia Respiratory: No distress, CTA bilaterally, Chest nontender Extremities: No edema, Tenderness - Double joints fingers of both hands and wrist there is arthritic changes noted. Skin: Normal color, No rash, No Trauma. Negative for: Cyanosis, Jaundice Neurological: Alert, Oriented x3, Cranial nerves II-XII grossly intact, Normal Strength, Normal Sensation Psychological: Depressed Diagnostic/Tx/Re-eval Laboratory Results 06/08/20 02:02 Ethyl Alcohol 171.0 Alcohol it is much higher than one would expect if he only drank 1 beer. Since patient is seen by his primary care physician and has a pain management plan with his PCP will not prescribe any opiate analgesics. Patient did receive IV medication. He is no longer complaining of pain. He is holding his fingers in a very unusual and unnatural position. Patient was told based on his past medical history, alcohol level and under the care of a physician who is managing his pain no opiate analgesics will be prescribed. He was given a dose of p rednisone in addition to what he initially received and discharged to home. - Medical Decision Making Review of prior records indicates no renal dysfunction. Patient was treated with IV morphine and Toradol for his discomfort. Since he has alcohol his breath and there is concern he may be intoxicated and alcohol level was obtained. ED Disposition - Plan for ED Patient: Disposition: Home or Assisted Living Diagnosis: Polyarthralgia, History of rheumatoid arthritis, Acute alcoholic intoxication in alcoholism (blood level 0.08-0.29) Instructions: ED Arthralgia, ED Alcohol Intoxication Prescriptions: Prednisone [Deltasone] 40 mg PO DAILY #10 tablet Transmission Status: Pending to [facility]30 Referrals: Alice Cuellar DO [Primary Care Provider] - 1-2 Days if not improving
[2020-06-08] MEDS: Morphine 2 MG/ML Syringe IV (01:59)
[2020-06-08] MEDS: Ketorolac 15 MG/ML Vial IV (01:59)
[2020-06-08] MEDS: Ondansetron 4 MG/2 ML Vial IV (02:00)
[2020-06-08] MEDS: predniSONE 20 MG Tablet 60 MG PO (02:44)
== END 2020-06-08 06:35 | disposition home or self-care (01) ==
PROVIDERS: Emergency Provider Emergency Medicine; PCP Family Medicine
DX: M06.9 Rheumatoid arthritis, unspecified (principal); F10.229 Alcohol dependence with intoxication, unspecified; Y90.1 Blood alcohol level of 20-39 mg/100 ml; F17.200 Nicotine dependence, unspecified, uncomplicated; D69.6 Thrombocytopenia, unspecified; I73.9 Peripheral vascular disease, unspecified; I10 Essential (primary) hypertension
CPT/HCPCS: 82077; 99285; A4216; J2405

== ENCOUNTER 2020-06-11 19:26 | Emergency (ER) | payer OTHER, SELFPAY ==
[2020-06-11 19:27] VITALS: BP 132/31; PULSE 69; RESP 18; TEMP 35.5; O2SAT 99; BMI 25.1
--- NOTE | 2020-06-11 19:29 | ED.RN ---
CALL MARIO AT [phone] WHEN DC FOR RIDE
--- NOTE | 2020-06-11 21:14 | ED.VIS.GEN ---
History of Present Illness Chief Complaint: Lower Extremity Injury Informant: Patient Narrative: 59-year-old male presenting with lower extremity edema. He he states that only his right lower extremity hurts. Patient denies any history of DVT/PE. He does note that he was recently treated for hand cramps with steroids from the emergency room. He states that his hand cramps got better however he notices edema. Is not sure if this is a byproduct of the steroids. Patient states that he is generally tired but denies any chest pain or palpitations. He does not note specifically shortness of breath. He states he has no history of congestive heart failure but does have history of liver failure. He states that he was told it was because of beer but he thinks is because of ibuprofen. Patient states that he does drink occasionally but does not drink every day. - Past Medical History (1) Hypomagnesemia Status: Chronic (2) Hypokalemia Status: Chronic (3) Esophageal varices in alcoholic cirrhosis Status: Chronic (4) Thrombocytopenia Status: Chronic (5) Benign essential hypertension Status: Chronic Past Medical History - Allergies and Home Meds Allergies/Adverse Reactions: Allergies No Known Allergies Allergy (Verified 06/11/20 19:28) Primary Care Physician: Alice Cuellar DO [Primary Care Provider] - Past Medical History: - - Esophageal varices, GI bleed Surgical History: noncontributory, - - Aortic aneurysm repair Smoking Status: Current every day smoker - Family History Maternal Family History: Reports: Cancer Paternal Family History: Reports: - - Reportedly his father from lupus Review of Systems General: Reports: Malaise. Denies: Chills, Fever, Sweats Eyes: Denies: Visual changes - bilaterally, Diplopia ENT: Denies: Rhinorrhea, Sore throat Cardiovascular: Denies: Chest pain, Palpitations Respiratory: Denies: Dyspnea, Cough, Dyspnea on exertion Gastrointestinal: Denies: Abdominal pain, Nausea, Vomiting, Diarrhea, Melena, Hematochezia Genitourinary: Denies: Dysuria, Hematuria, Frequency Musculoskeletal: Reports: Swelling - Lateral lower extremity edema, Extremity Pain - Right lower extremity Skin: Reports: Rash, Abscess Neurological: Reports: Headache, - - Pain, numbness and tingling in the bilateral feet.. Denies: Weakness, Parasthesia Psych: Denies: Depression, Anxiety Physical Exam Vital Signs/Narrative: Vital Signs Temp Pulse Resp BP Pulse Ox 06/11/20 19:27 95.9 F L 69 18 132/31 H 99 General: Unkempt, No Acute Distress Head: Normocephalic, Atraumatic Eyes: Perrl, EOMI. Negative for: Pale conjunctiva, Scleral icterus ENT: Moist mucous membranes, No rhinorrhea Cardiovascular: Regular rate, Regular rhythm Respiratory: No distress. Negative for: Wheezing, Diminished Abdomen: Soft, Nontender, Nondistended Extremities: Edema - 2+ lower extremity edema. Generalized tenderness right lower extremity. Neurological: Alert, Oriented x3, Cranial nerves II-XII grossly intact Psychological: Normal affect, Normal Mood Diagnostic/Tx/Re-eval Clinical Impression(s) from Imaging Studies Venous Duplex 06/11/20 21:15 IMPRESSION: Normal venous Doppler ultrasound of the lower extremity. Electronically Signed: Ernst Landers MD at 22:09 EDT , Service support , Chest X-Ray 06/11/20 23:17 IMPRESSION: No visualized acute process Electronically Signed: Ernst Landers MD at 23:43 EDT , Service support , Laboratory Data 06/11/20 06/11/20 06/11/20 22:15 22:15 22:15 WBC 5.2 RBC 4.03 L Hgb 13.2 Hct 39.7 L MCV 98.5 H MCH 32.8 H MCHC 33.2 RDW Std Deviation 59.7 H RDW Coeff of Deillah 16.5 H Plt Count 59 L MPV 10.2 Immature Gran % (Auto) 0.200 Neut % (Auto) 35.2 L Lymph % (Auto) 49.4 H [place] % (Auto) 13.8 H Eos % (Auto) 0.8 Baso % (Auto) 0.6 Absolute Neuts (auto) 1.8 L Absolute Lymphs (auto) 2.57 Nucleated RBC % 0 Differential Comment SCANNED Sodium 142 Potassium 3.9 Chloride 106 Carbon Dioxide 31.0 Anion Gap 5 BUN 2 L Creatinine 0.58 L Estim Creat Clear Calc 146.06 Est GFR (MDRD) Af Amer 184 Est GFR (MDRD) Non-Af 152 BUN/Creatinine Ratio 3.4 L Glucose 89 Calcium 8.0 L Total Bilirubin 1.40 H Direct Bilirubin 0.71 H AST 148 H ALT 59 Alkaline Phosphatase 108 Troponin I < 0.015 B-Natriuretic Peptide 147.6 H Total Protein 6.5 Albumin 2.8 L Globulin 3.7 Lipase 225 - Medical Decision Making 59-year-old male with history of cirrhosis presenting with lower extremity edema. Initially stated that his right leg her only. Patient had DVT study which was negative for DVT. At this time the patient dates that both of his legs have been swelling and this is new. He does have some chronic lower extremity edema but it is worse. He denies chest pain, palpitations, shortness of breath. At this point I did get lab work and imaging to rule out CHF. Patient's chest x-ray is interpreted by myself shows no acute cardiopulmonary process. EKG interpreted by myself shows a normal sinus rhythm at [address] elevation or depression. Lab work shows that his bilirubin other LFTs are elevated however he appears to live in this range and is been higher and lower previously. He does have a history of cirrhosis. He continues to drink beer. Electrolytes are unremarkable. Renal function is normal. Patient does also state that he was on prednisone for hand cramping and this could also be a source for some edema. I do not believe the patient needs to be admitted for this. He will follow up with his primary care physician for repeat evaluation to ensure resolution. Impression: 1. Lower extremity edema 2. Elevated LFTs 3. History of cirrhosis ED Disposition - Plan for ED Patient: Disposition: Home or Assisted Living Instructions: ED Peripheral Edema, Bilateral Referrals: Alice Cuellar DO [Primary Care Provider] -
--- NOTE | 2020-06-11 21:15 | US_ITS ---
STUDY: VENOUS DOPPLER ULTRASOUND - RIGHT LOWER EXTREMITY REASON FOR EXAM: Male, 59 years old. RT FOOT AND LOWER LEG REDNESS AND SWELLING TECHNIQUE: Ultrasound evaluation of the deep vein system to include vieira-scale imaging and compression was performed. Vieira-scale imaging and Doppler sonographic evaluation, including duplex spectral analysis and qualitative color flow sonography, was performed. COMPARISON: None. FINDINGS: Common Femoral Vein: Normal compression, spontaneity and augmentation. Normal color Doppler. Common Femoral Vein/Greater Saphenous Junction: Normal compression, spontaneity and augmentation. Normal color Doppler. Femoral Proximal: Normal compression, spontaneity and augmentation. Normal color Doppler. Femoral Middle: Normal compression, spontaneity and augmentation. Normal color Doppler. Femoral Distal: Normal compression, spontaneity and augmentation. Normal color Doppler. Popliteal Vein: Normal compression, spontaneity and augmentation. Normal color Doppler. Posterior Tibial Vein: Normal compression, spontaneity and augmentation. Normal color Doppler. Peroneal Vein: Normal compression, spontaneity and augmentation. Normal color Doppler. The left common femoral vein was evaluated and is normal. US/Venous Duplex Imag/Limited/Uni IMPRESSION: Normal venous Doppler ultrasound of the lower extremity. Electronically Signed: Ernst Landers MD at 22:09 EDT , Service support ,
[2020-06-11 22:03] VITALS: O2SAT 97
--- NOTE | 2020-06-11 22:03 | EKG12_ITS ---
Test Reason : LOWER EXT Blood Pressure : / mmHG Vent. Rate : 067 BPM Atrial Rate : 067 BPM P-R Int : 186 ms QRS Dur : 098 ms QT Int : 462 ms P-R-T Axes : 058 054 059 degrees QTc Int : 488 ms Normal sinus rhythm Prolonged QT Abnormal ECG Confirmed by AMANDA DAN, DEYANIRA ([id number]), editor department ANNABELLA TRIANA ([id number]) on 06/13/2020 11:24:06 AM Referred By: REJI Confirmed By:DEYANIRA PATEL MD
[2020-06-11] MEDS: Ondansetron 4 MG/2 ML Vial IV (22:14)
[2020-06-11] MEDS: Morphine 4 MG/ML Syringe IV (22:14)
[2020-06-11 22:26] VITALS: BP 123/75; PULSE 67; RESP 18; O2SAT 94
[2020-06-11 22:26] LABS: Absolute Lymphocyte Count 2.57 X10^3/uL (0.83-4.51); Absolute Neutrophil Count 1.8 X10^3/uL (2.0-7.7); Basophil# 0.03 X10^3/uL; Basophil% 0.6 % (0-1); Eosinophil# 0.04 X10^3/uL; Eosinophils% 0.8 % (0-5); Hematocrit 39.7 % (40-54); Hemoglobin 13.2 g/dL (13.0-16.5); Lymphocyte # 2.57 X10^3/ul (4.0); Lymphocyte % 49.4 % (19-41); Mean Corp Hgb Conc 33.2 g/dL (32-36); Mean Corpuscular Hgb 32.8 pg (27.0-32.0); Mean Corpuscular Volume 98.5 fL (80-94); Mean Platelet Vol. 10.2 fl (6.2-12.0); Monocyte# 0.72 X10^3/uL; Monocyte% 13.8 % (0-10); NRBC Flagged by Analyzer 0 % (0-5); Neutrophil # 1.83 X10^3/uL (2.7-7.7); Neutrophil % 35.2 % (47-70); POSITIVE COUNT YES; Platelet Count 59 K/mm3 (150-450); RBC Distribution Width CV 16.5 % (11.6-14.6); RBC Distribution Width SD 59.7 fl (35.1-43.9); Red Blood Count 4.03 M/mm3 (4.6-6.2); White Blood Count 5.2 K/mm3 (4.4-11.0)
[2020-06-11 22:27] LABS: Differential Indicated SCAN CRITERIA MET
[2020-06-11 22:56] LABS: AST(SGOT) 148 U/L (15-37); Alanine Aminotransfer ALT/SGPT 59 U/L (16-61); Albumin, Serum 2.8 g/dL (3.2-5.0); Alkaline Phosphatase 108 U/L (45-117); Anion Gap 5 (5-15); BUN 2 mg/dL (7-18); BUN/Creat Ratio 3.4 RATIO (10-20); Bilirubin, Direct 0.71 mg/dL (0.00-0.30); Chloride 106 mmol/L (98-107); Creatinine, Serum 0.58 mg/dL (0.70-1.30); EST Glomerular Filtration Rate 152 mL/min (>60); Est Glom Filt Rate - Afr Amer 184 mL/min (>60); Estimated Creatinine Clearance 146.06 ml/min; Globulin 3.7 g/dL (2.2-4.2); Glucose 89 mg/dL (74-106); Lipase 225 U/L (73-393); Potassium 3.9 mmol/L (3.5-5.1); Protein, Total 6.5 g/dL (6.4-8.2); Sodium Level 142 mmol/L (136-145)
[2020-06-11 22:58] LABS: Differential Comment SCANNED
[2020-06-11 23:13] LABS: BNP,B-Type NATRIURETIC PEPTIDE 147.6 pg/mL (0-100)
--- NOTE | 2020-06-11 23:17 | RAD_ITS ---
STUDY: X-RAY CHEST REASON FOR EXAM: Male, 59 years old. chest pain TECHNIQUE: Single AP portable view of the chest. COMPARISON: April 04, 2020 FINDINGS: There are interstitial fibrotic changes of the lungs. No visualized new infiltrate or focal consolidation. There is no demonstrated pleural abnormality. Normal size heart. Normal mediastinum and kelly. Normal visualized pulmonary arteries. Normal visualized aortic arch and descending thoracic aorta. Normal visualized thoracic spine. Normal visualized ribs, clavicles, and shoulders. There is no demonstrated abnormality of the visualized soft tissue structures of the upper abdomen. RAD/Chest 1 View (Portable) IMPRESSION: No visualized acute process Electronically Signed: Ernst Landers MD at 23:43 EDT , Service support ,
[2020-06-12 00:15] VITALS: BP 129/75; PULSE 61; PULSE 63; RESP 12; O2SAT 98
== END 2020-06-12 00:25 | disposition home or self-care (01) ==
PROVIDERS: Emergency Provider Student in an Organized Health Care Education/Training Program; PCP Family Medicine
DX: R60.0 Localized edema (principal); R79.89 Other specified abnormal findings of blood chemistry; K74.60 Unspecified cirrhosis of liver; E83.42 Hypomagnesemia; E87.6 Hypokalemia; D69.6 Thrombocytopenia, unspecified; I10 Essential (primary) hypertension; F17.200 Nicotine dependence, unspecified, uncomplicated
CPT/HCPCS: 71045; 80048; 80076; 83690; 83880; 84484; 85025; 93005; 93971; 96374; 96375; 99284; A4216; J2405

== ENCOUNTER 2020-06-29 20:09 | Emergency (ER) | payer OTHER, SELFPAY ==
[2020-06-29 20:10] VITALS: BP 133/61; PULSE 62; RESP 18; TEMP 36.8; O2SAT 100; BMI 25.7
--- NOTE | 2020-06-29 21:22 | EX.ED.DYSGE1 ---
HPI History of Present Illness Chief Complaint: Nausea/Vomiting Informant: patient Narrative Narrative: 59-year-old male with a history of liver cirrhosis and esophageal varices and encephalopathy presents with nausea and vomiting. He states that his entire abdomen hurts. He states that he has had no change in his bowel movements which is chronically diarrhea due to his lactulose use. He denies any fevers. Patient states it has been a wild since his last alcoholic drink. He cannot really tell me if it has been months weeks or when. He denies a history of pancreatitis. [facility] Medical History Liver cirrhosis, alcoholic Peripheral arterial disease Home Medications ferrous sulfate [iron] 325 mg PO DAILY 03/20/18 [History Last Taken 03/11/20] nadolol 20 mg PO DAILY 03/20/18 [History Last Taken 03/11/20] pantoprazole 40 mg PO DAILY 03/20/18 [History Last Taken 03/11/20] thiamine HCl (vitamin B1) [Vitamin B-1] 100 mg PO DAILY 03/20/18 [History Last Taken 03/11/20] spironolactone 12.5 mg PO DAILY 08/20/18 [History Last Taken 03/11/20] lactulose 10 ml PO TID 03/12/20 [History Last Taken 03/11/20] magnesium oxide 400 mg PO DAILYCM 03/12/20 [History Last Taken 03/11/20] potassium chloride 10 meq PO BID 03/12/20 [History Last Taken 03/11/20] tramadol 100 mg PO Q6H PRN PRN 03/12/20 [History Last Taken Unknown] trazodone 100 mg PO QHS 03/12/20 [History Last Taken 03/11/20] multivitamin,bh-kziw-zzoimlyp 1 tab PO DAILYCM tab 03/13/20 [Rx Last Taken Unknown] benzonatate 100 mg PO TID PRN PRN 04/04/20 [History Last Taken Unknown] ondansetron 4 mg PO Q8H PRN PRN #10 tab 04/27/20 [Rx Last Taken Unknown] ciprofloxacin HCl 500 mg PO BID #14 tab 05/24/20 [Rx Last Taken Unknown] metronidazole 500 mg PO BID #21 tablet 05/24/20 [Rx Last Taken Unknown] ondansetron 4 mg PO Q8H PRN PRN #10 tablet 05/24/20 [Rx Last Taken Unknown] prednisone 40 mg PO DAILY #10 tablet 06/08/20 [Rx Last Taken Unknown] ondansetron 4 mg PO Q8H PRN PRN #15 tab 06/29/20 [Rx Last Taken Unknown] promethazine 25 mg PO Q6H PRN PRN #15 tablet 06/29/20 [Rx Last Taken Unknown] Allergy/AdvReac Type Severity Reaction Status Date / Time No Known Allergies Allergy Verified 06/29/20 20:12 Social History Smoking Status: Current every day smoker ROS ROS ED Constitutional Constitutional ED: Denies chills or weight loss Eyes Eyes: Denies change in vision or diplopia ENT ENT ED: Denies ear pain, rhinorrhea or sore throat Cardiovascular Cardiovascular: Denies chest pain, orthopnea, palpitations or racing heartbeat Respiratory/Chest Respiratory/Chest: Denies cough, dyspnea or orthopnea Gastrointestinal Gastrointestinal: Reports abdominal pain, diarrhea, nausea and vomiting Genitourinary Genitourinary ED: Denies dysuria, hematuria or urinary frequency Musculoskeletal Musculoskeletal: Denies arthralgias or myalgias Integumentary Denies abscess or rash Neurologic Neurologic: Denies headache(s) or weakness Psychiatric Psychiatric: Denies anxiety, depression, suicidal ideation or suicidal thoughts Endocrine Endocrinology: Denies polydipsia, polyphagia or polyuria Allergic/Immunologic Allergic/Immunologic ED: Denies mouth swelling, tongue swelling or urticaria EXAM Physical Exam Const Vital Signs: 06/29/20 20:10 Temperature 98.2 F Temperature Source Oral Pulse Rate 62 Respiratory Rate 18 Blood Pressure 133/61 H Blood Pressure Mean 85 Pulse Ox 100 Oxygen Delivery Method Room Air Positive well nourished and well developed General Appearance ED: well developed HEENT Reports normocephalic, head/scalp atraumatic and moist mucous membranes Eyes PERRL and EOMs intact bilaterally Neck no lymphadenopathy, supple and no JVD Resp normal respiratory effort and clear to auscultation bilaterally Cardio regular rate, regular rhythm and no murmurs GI GI Narrative: Normal bowel sounds. Diffusely tender without guarding or rebound. The abdomen is soft nondistended. Palpation: soft Back/Spine no CVA tenderness and normal ROM Extremity normal to inspection General Extremety ED: Negative for edema General Extremity: Negative for edema Neuro oriented x3 and CN's II-XII intact bilaterally Sensorium / Orientation: alert Motor Exam: strength 5/5 throughout Psych mental status grossly normal Mood & Affect: Negative for depressed or tearful Skin no rashes or lesions noted and no wounds MDM MDM MDM Narrative Medical decision making narrative: Patient received IV fluids and Zofran. Later he received Reglan. His platelet count shows 33 which is chronic for the patient. He is chronically leukopenic as well. Lipase 192. His alcohol level is 40 and urine drug screen is positive for cannabis. Patient will do a p.o. challenge and is passively discharged home. I can write for antiemetics at home. I would encourage him to quit drinking. Lab Data Attestation: I reviewed the patient's lab results. Labs: Laboratory Results - last 24 hr 06/29/20 06/29/20 06/29/20 20:43 20:43 21:34 WBC 2.3 L RBC 4.23 L Hgb 14.0 Hct 40.8 MCV 96.5 H MCH 33.1 H MCHC 34.3 RDW Std Deviation 61.6 H RDW Coeff of Delilah 17.2 H Plt Count 33 L* MPV 10.9 Immature Gran % (Auto) 0.400 Neut % (Auto) 53.6 Lymph % (Auto) 28.9 [place] % (Auto) 16.7 H Eos % (Auto) 0.0 Baso % (Auto) 0.4 Absolute Neuts (auto) 1.2 L Absolute Lymphs (auto) 0.66 L Nucleated RBC % 0 Differential Comment SCANNED Diff Path Review May foll Platelet Estimate MKD DEC Anisocytosis 2+ Target Cells RARE Sodium 138 Potassium 4.0 Chloride 105 Carbon Dioxide 26.0 Anion Gap 7 BUN 2 L Creatinine 0.60 L Estim Creat Clear Calc 141.19 Est GFR (MDRD) Af Amer 176 Est GFR (MDRD) Non-Af 145 BUN/Creatinine Ratio 3.3 L Glucose 131 H Calcium 8.3 L Total Bilirubin 1.70 H AST 69 H ALT 42 Alkaline Phosphatase 106 Total Protein 6.8 Albumin 2.9 L Globulin 3.9 Albumin/Globulin Ratio 0.7 L Lipase 192 Urine Color Urine Clarity Urine pH Ur Specific [place] Urine Protein Urine Glucose (UA) Urine Ketones Urine Occult Blood Urine Nitrite Urine Bilirubin Urine Urobilinogen Ur Leukocyte Esterase Urine RBC Urine WBC Ur Squamous Epith Cells Urine Bacteria Urine Mucus Urine Opiates Screen Urine Methadone Screen Ur Barbiturates Screen Ur Phencyclidine Scrn Ur Amphetamines Screen U Methamphetamin-MDMA U Benzodiazepines Scrn Urine Cocaine Screen U Cannabinoids Screen Ur Drug Screen Comment Ethyl Alcohol 40.0 06/29/20 06/29/20 21:40 21:40 WBC RBC Hgb Hct MCV MCH MCHC RDW Std Deviation RDW Coeff of Delilah Plt Count MPV Immature Gran % (Auto) Neut % (Auto) Lymph % (Auto) [place] % (Auto) Eos % (Auto) Baso % (Auto) Absolute Neuts (auto) Absolute Lymphs (auto) Nucleated RBC % Differential Comment Diff Path Review Platelet Estimate Anisocytosis Target Cells Sodium Potassium Chloride Carbon Dioxide Anion Gap BUN Creatinine Estim Creat Clear Calc Est GFR (MDRD) Af Amer Est GFR (MDRD) Non-Af BUN/Creatinine Ratio Glucose Calcium Total Bilirubin AST ALT Alkaline Phosphatase Total Protein Albumin Globulin Albumin/Globulin Ratio Lipase Urine Color Yellow Urine Clarity Sl. Cloudy Urine pH 7.0 Ur Specific [place] 1.010 Urine Protein Negative Urine Glucose (UA) Normal Urine Ketones Negative Urine Occult Blood Negative Urine Nitrite Negative Urine Bilirubin Negative Urine Urobilinogen Normal Ur Leukocyte Esterase Negative Urine RBC 0 SEEN Urine WBC 0 SEEN Ur Squamous Epith Cells 0-5 SEEN Urine Bacteria 0 SEEN Urine Mucus 0 SEEN Urine Opiates Screen NEGATIVE Urine Methadone Screen NEGATIVE Ur Barbiturates Screen NEGATIVE Ur Phencyclidine Scrn NEGATIVE Ur Amphetamines Screen NEGATIVE U Methamphetamin-MDMA NEGATIVE U Benzodiazepines Scrn NEGATIVE Urine Cocaine Screen NEGATIVE U Cannabinoids Screen POSITIVE H Ur Drug Screen Comment Ethyl Alcohol Discharge Plan Triage Chief Complaint: Nausea/Vomiting ED Provider: Jose Ramon Dickinson Dx/Rx/DC Orders Clinical Impression: Thrombocytopenia, Cirrhosis, Vomiting, Alcoholism Instructions: ED Vomiting (Adult) Prescriptions: New promethazine [promethazine] 25 MG tablet 25 mg PO Q6H PRN PRN (Reason: Nausea) Qty: 15 RF: 0 ondansetron [ondansetron] 4 MG tablet 4 mg PO Q8H PRN PRN (Reason: Nausea) Qty: 15 RF: 0 No Action thiamine HCl (vitamin B1) [Vitamin B-1] 100 MG tablet 100 mg PO DAILY RF: 0 nadolol 20 MG tablet 20 mg PO DAILY RF: 0 pantoprazole 40 MG tablet,delayed release (DR/EC) 40 mg PO DAILY RF: 0 ferrous sulfate [iron] 325 MG tablet 325 mg PO DAILY RF: 0 spironolactone 25 MG tablet 12.5 mg PO DAILY RF: 0 tramadol 50 MG tablet 100 mg PO Q6H PRN PRN (Reason: Pain Score 1-10) RF: 0 potassium chloride 10 MEQ tablet extended release 10 meq PO BID RF: 0 magnesium oxide 400 MG tablet 400 mg PO DAILYCM RF: 0 trazodone 100 MG tablet 100 mg PO QHS RF: 0 lactulose 10 GM/15 ML solution 10 ml PO TID RF: 0 multivitamin,uo-mbss-ejowxaai 1 TABLET tablet 1 tab PO DAILYCM RF: 0 benzonatate 100 MG capsule 100 mg PO TID PRN PRN (Reason: Cough) RF: 0 ondansetron 4 MG tablet 4 mg PO Q8H PRN PRN (Reason: Nausea) Qty: 10 RF: 0 metronidazole 500 MG tablet 500 mg PO BID Qty: 21 RF: 0 ciprofloxacin HCl 500 MG tablet 500 mg PO BID Qty: 14 RF: 0 ondansetron 4 MG tablet 4 mg PO Q8H PRN PRN (Reason: Nausea) Qty: 10 RF: 0 prednisone 20 MG tablet 40 mg PO DAILY Qty: 10 RF: 0 Primary Care Provider: Alice Cuellar Referrals: Alice Cuellar DO [Primary Care Provider] - As soon as possible
[2020-06-29] MEDS: Ketorolac 30 MG/ML Syringe IV (21:29)
[2020-06-29] MEDS: 0.9% Normal Saline 1,000 ML 1000 ML IV (21:29)
[2020-06-29] MEDS: Ondansetron 4 MG/2 ML Vial IV (21:29)
[2020-06-29 21:40] LABS: Absolute Lymphocyte Count 0.66 X10^3/uL (0.83-4.51); Absolute Neutrophil Count 1.2 X10^3/uL (2.0-7.7); Basophil# 0.01 X10^3/uL; Basophil% 0.4 % (0-1); Hematocrit 40.8 % (40-54); Lymphocyte # 0.66 X10^3/ul (0.83-4.51); Lymphocyte % 28.9 % (19-41); Mean Corp Hgb Conc 34.3 g/dL (32-36); Mean Corpuscular Hgb 33.1 pg (27.0-32.0); Mean Corpuscular Volume 96.5 fL (80-94); Mean Platelet Vol. 10.9 fl (6.2-12.0); Monocyte# 0.38 X10^3/uL; Monocyte% 16.7 % (0-10); NRBC Flagged by Analyzer 0 % (0-5); Neutrophil # 1.22 X10^3/uL (2.7-7.7); Neutrophil % 53.6 % (47-70); POSITIVE COUNT YES; RBC Distribution Width CV 17.2 % (11.6-14.6); RBC Distribution Width SD 61.6 fl (35.1-43.9); Red Blood Count 4.23 M/mm3 (4.6-6.2); White Blood Count 2.3 K/mm3 (4.4-11.0)
[2020-06-29 21:45] LABS: Bacteria 0 SEEN /hpf (None Seen); Mucous, Urine 0 SEEN /hpf (<or=2+); Red Blood Cells-Urine 0 SEEN /hpf (0-5); White Blood Cells 0 SEEN /hpf (0-5)
[2020-06-29 21:46] LABS: Differential Indicated SCAN CRITERIA MET
[2020-06-29 21:47] LABS: Platelet Count 33 K/mm3 (150-450)
--- NOTE | 2020-06-29 21:48 | ED.RN ---
PLT OF 33 REPORTED TO .
[2020-06-29 21:49] LABS: Color, Urine Yellow (Yellow); Glucose, Dipstick Normal (Normal); Ketone-Dipstick Negative (Negative); Leukocyte Esterase-Dipstick Negative /ul (Negative); Nitrite-Dipstick Negative (Negative); Occult Blood-Urine Negative /ul (Negative); Protein-Dipstick Negative (Negative); Urine Bilirubin Dipstick Negative (Negative); Urine Clarity Sl. Cloudy (Clear); Urine Urobilinogen Normal (Normal)
[2020-06-29 21:52] LABS: ALB/GLOB Ratio 0.7 RATIO (0.9-2.4); AST(SGOT) 69 U/L (15-37); Alanine Aminotransfer ALT/SGPT 42 U/L (16-61); Albumin, Serum 2.9 g/dL (3.2-5.0); Alkaline Phosphatase 106 U/L (45-117); Anion Gap 7 (5-15); BUN 2 mg/dL (7-18); BUN/Creat Ratio 3.3 RATIO (10-20); Calcium,Total 8.3 mg/dL (8.5-10.1); Chloride 105 mmol/L (98-107); EST Glomerular Filtration Rate 145 mL/min (>60); Est Glom Filt Rate - Afr Amer 176 mL/min (>60); Estimated Creatinine Clearance 141.19 ml/min; Globulin 3.9 g/dL (2.2-4.2); Glucose 131 mg/dL (74-106); Lipase 192 U/L (73-393); Protein, Total 6.8 g/dL (6.4-8.2); Sodium Level 138 mmol/L (136-145)
[2020-06-29 22:06] LABS: Squamous Epithelial Cells - UA 0-5 SEEN /hpf (0-5)
[2020-06-29 22:09] LABS: Amphetamine Urine VISTA NEGATIVE (<1000 ng/mL); Barbiturate Urine VISTA NEGATIVE (< 200 ng/mL); Benzodiazepine Urine VISTA NEGATIVE (< 200 ng/mL); Cocaine Urine VISTA NEGATIVE (< 300 ng/mL); Ecstacy Urine VISTA NEGATIVE (< 500 ng/mL); Methadone Urine VISTA NEGATIVE (< 300 ng/mL); PCP Urine VISTA NEGATIVE (< 25 ng/mL); THC Urine VISTA POSITIVE (< 50 ng/mL); Vista UDS pH Range 6
[2020-06-29 22:19] LABS: Anisocytosis 2+; Differential Comment SCANNED; Platelet Estimate MKD DEC (ADEQ)
[2020-06-29 22:20] LABS: Target Cells RARE
[2020-06-29] MEDS: Metoclopramide 10 MG/2 ML Vial IV (22:22)
[2020-06-30] MEDS: Haloperidol Lactate 5 MG/ML Vial IM (00:06)
[2020-06-30] MEDS: 0.9% Normal Saline 1,000 ML 200 ML IV (00:08)
[2020-07-02 13:39] LABS: Pathologist Review Reviewed
== END 2020-06-30 01:32 | disposition home or self-care (01) ==
PROVIDERS: Emergency Provider Emergency Medicine; PCP Family Medicine
DX: D69.6 Thrombocytopenia, unspecified (principal); K74.60 Unspecified cirrhosis of liver; R11.2 Nausea with vomiting, unspecified; F10.20 Alcohol dependence, uncomplicated; Y90.2 Blood alcohol level of 40-59 mg/100 ml; F17.200 Nicotine dependence, unspecified, uncomplicated
CPT/HCPCS: 80053; 80307; 81001; 82077; 83690; 85025; 96361; 96372; 96374; 96375; 99282; J7030; A4216; J2405

== ENCOUNTER 2020-07-17 02:00 | Emergency (ER) | payer OTHER, SELFPAY ==
[2020-07-17 02:01] VITALS: BP 145/79; PULSE 97; RESP 16; TEMP 36.3; O2SAT 98; BMI 27.5
--- NOTE | 2020-07-17 02:08 | CT_ITS ---
STUDY: CT ABDOMEN AND PELVIS WITH CONTRAST REASON FOR EXAM: Male, 59 years old. Abdominal pain and distention. Peritoneal findings. RADIATION DOSAGE (If Supplied By Facility): CTDIvol = ( 16.32 ) mGy, DLP = ( 1135.10 ) mGycm TECHNIQUE: Transaxial images were obtained from the dome of the diaphragm to the symphysis pubis without oral contrast. 100mL Isovue-300 was administered. Sagittal and coronal images were reconstructed. Individualized dose optimization techniques were used for this CT. COMPARISON: May 24, 2020. FINDINGS: The visualized lung bases are unremarkable. The heart is not enlarged. Coronary artery calcifications. Nodular margins to the liver suggestive of cirrhosis. Upper abdominal varices. Gallstones in the gallbladder. Mild splenomegaly noted previously. Normal pancreas. Normal bilateral adrenal glands. Normal right kidney. Normal left kidney. Mild abdominal and mild to moderate pelvic ascites unchanged. Normal visualized stomach. Thickening involving the proximal and mid small bowel secondary to enteritis or ascites. Wall thickening involving the ascending and transverse colon suggestive of colitis noted previously. The base of the appendix is thickened to 1.1 cm and there is mild wall thickening involving the base of the appendix. Appendix seen on coronal images 78 through 86. Mild periappendiceal inflammatory changes. There are atherosclerotic changes of the abdominal aorta. Normal inferior vena cava. Normal retroperitoneum. No intra-abdominal free air. Normal urinary bladder. Normal visualized prostate gland. Normal abdominal wall. Normal osseous structures. CT/Abdomen/Pelvis WITH Contrast IMPRESSION: Findings of chronic liver disease. Wall thickening involving small bowel secondary to enteritis or ascites. Colitis involving the right-sided colon noted previously. Possible early acute appendicitis. Electronically Signed: Donald Corley MD at 4:41 EDT , Service support ,
--- NOTE | 2020-07-17 02:08 | EX.ED.DYSGE1 ---
HPI History of Present Illness Chief Complaint: Abd Pain Informant: patient Onset/Context/Timing Onset: Yesterday (Onset 1800. Patient states pain worse over the past 3 hours) Context: Sudden Onset Timing: Continuous Quality: Pain Location: Generalized Current Severity: Mild Maximum Severity: Severe Worsened by: Movement Relieved by: Nothing Associated Symptoms Associated Symptoms: No associated fever or chills. No associated vomiting. No change in bowel Narrative Narrative: Patient is a 59-year-old male with history of alcoholic liver disease with cirrhosis. He states he is never had ascites. He presents because of abdominal pain, distention. Onset yesterday at 1800. Pain has gotten worse over the past 3 hours. He arrived by ambulance. He denies fever, chills night sweats. He denies vomiting or change in bowels. He states he has chronic diarrhea. He is on lactulose. He states his been compliant with his lactulose. He is also on iron. He denies dysuria, frequency, urgency or hematuria. He does bruise easily. States he is not on an anticoagulant. Review of prior records indicates he has thrombocytopenia. He does admit to drinking a 12 pack/week. He denies cardiac respiratory symptoms. Prior similar symptoms: No Recent Illness/Hospitalization: No PFSH PFS Medical History Aortic aneurysm without rupture Benign essential hypertension Diastolic dysfunction Esophageal varices in alcoholic cirrhosis Liver cirrhosis, alcoholic Peripheral arterial disease Home Medications ferrous sulfate [iron] 325 mg PO DAILY 03/20/18 [History Last Taken 03/11/20] nadolol 20 mg PO DAILY 03/20/18 [History Last Taken 03/11/20] pantoprazole 40 mg PO DAILY 03/20/18 [History Last Taken 03/11/20] thiamine HCl (vitamin B1) [Vitamin B-1] 100 mg PO DAILY 03/20/18 [History Last Taken 03/11/20] spironolactone 12.5 mg PO DAILY 08/20/18 [History Last Taken 03/11/20] lactulose 10 ml PO TID 03/12/20 [History Last Taken 03/11/20] magnesium oxide 400 mg PO DAILYCM 03/12/20 [History Last Taken 03/11/20] potassium chloride 10 meq PO BID 03/12/20 [History Last Taken 03/11/20] tramadol 100 mg PO Q6H PRN PRN 03/12/20 [History Last Taken Unknown] trazodone 100 mg PO QHS 03/12/20 [History Last Taken 03/11/20] multivitamin,xv-nnxh-ofqkuxfh 1 tab PO DAILYCM tab 03/13/20 [Rx Last Taken Unknown] benzonatate 100 mg PO TID PRN PRN 04/04/20 [History Last Taken Unknown] ondansetron 4 mg PO Q8H PRN PRN #10 tab 04/27/20 [Rx Last Taken Unknown] promethazine 25 mg PO Q6H PRN PRN #15 tablet 06/29/20 [Rx Last Taken Unknown] Allergy/AdvReac Type Severity Reaction Status Date / Time No Known Allergies Allergy Verified 07/17/20 02:04 Surgical History History of aortic aneurysm repair Social History household members: none Smoking Status: Current every day smoker alcohol intake: current alcohol intake frequency: a few times a week substance use type: does not use ROS ROS ED Constitutional Constitutional ED: Denies chills, fever(s), subjective or sweats Eyes Eyes: Denies blurry vision or change in vision ENT ENT ED: Denies rhinorrhea or sore throat Cardiovascular Cardiovascular: Denies chest pain, orthopnea, palpitations or paroxysmal nocturnal dyspnea Respiratory/Chest Respiratory/Chest: Reports cough; Denies dyspnea, dyspnea on exertion, orthopnea, paroxysmal nocturnal dyspnea or sputum Gastrointestinal Gastrointestinal: Reports abdominal pain, diarrhea and nausea; Denies constipation, melena or vomiting Genitourinary Genitourinary ED: Denies dysuria, hematuria or urinary frequency Musculoskeletal Musculoskeletal: Denies arthralgias, back pain, myalgias or neck pain Integumentary Denies rash Neurologic Neurologic: Denies headache(s) or paresthesias Endocrine Endocrinology: Denies polydipsia, polyphagia or polyuria Hematologic/Lymphatic Hematologic/Lymphatic: Reports anemia and easy bruising Allergic/Immunologic Allergic/Immunologic ED: Denies mouth swelling or urticaria EXAM Physical Exam Const Vital Signs: 07/17/20 02:01 07/17/20 04:09 07/17/20 05:38 Temperature 97.4 F L Temperature Source Temporal Pulse Rate 97 88 108 H Respiratory Rate 16 16 16 Blood Pressure 145/79 H 127/72 H 124/49 H Blood Pressure Mean 101 90 74 Pulse Ox 98 96 98 Oxygen Delivery Method Room Air Room Air Room Air Positive well nourished, well developed and obese General Appearance ED: well developed and other Patient appears ill. Mentation is slow. ; Negative for cyanotic or diaphoretic Nutritional Appearance: obese HEENT Reports moist mucous membranes HEENT Narrative: Ears are normal. Nares patent. Posterior pharynx unremarkable. Eyes PERRL and EOMs intact bilaterally General Eye ED: Yes pale conjunctiva; Negative for scleral icterus Neck no lymphadenopathy, supple and no JVD Resp normal respiratory effort and clear to auscultation bilaterally Effort and Inspection: Negative for pain with movement Cardio regular rate, regular rhythm, S1 normal heart sound, S2 normal heart sound and no murmurs GI Negative for hepatosplenomegaly Inspection: abdominal distention Auscultation: hypoactive bowel sounds Palpation: tender other (Generalized tenderness), guarding other (Guarding throughout more so right side) and rebound tenderness present; Negative for splenomegaly Back/Spine no CVA tenderness Thoracic Spine / Upper Back: Negative for paraspinal muscle tenderness Lumbar Spine / Lower Back: Negative for lumbar spinal tenderness Extremity normal to inspection General Extremety ED: Negative for edema General Extremity: Negative for edema Neuro oriented x3, CN's II-XII intact bilaterally and no sensory deficits noted Motor Exam: strength 5/5 throughout Psych mental status grossly normal Psych Narrative: Slow psychomotor skills. Skin no rashes or lesions noted and no wounds MDM MDM MDM Narrative Medical decision making narrative: With altered mental status history of cirrhosis will obtain ammonia level to rule out hepatic encephalopathy. CBC to assess white count and H&H as well as platelet count since he has history of thrombocytopenia and is bruising easily.. Comprehensive metabolic panel to assess liver enzymes as well as renal function, anion gap and electrolytes. Because patient has peritoneal findings CT of the abdomen was obtained with IV and p.o. contrast. Fast scan revealed normal-appearing liver. Right kidney appeared normal. There may be ascites/fluid collection noted around the liver. Bladder was slightly distended. Patient was medicated with Zofran for his nausea and morphine for his pain. Based on the interpretation by radiologist Dr. Rivera who is on-call for general surgery was paged. He will be in to see patient. Lab Data Attestation: I reviewed the patient's lab results. Lab results narrative: Ammonia slightly elevated. This is nonspecific. Lactic is elevated. Patient had elevated lactate levels in the past as well. I was informed by nurse that the Zofran did not diminish his nausea. Is having difficulty drinking the oral contrast. 10 of Reglan was ordered. Apparently the morphine did not help his pain. Calcium is low however albumin is low. Review of prior records indicate patient has mild coagulopathy due to his alcoholism causing bone marrow suppression and liver dysfunction. Labs: Laboratory Results - last 24 hr 07/17/20 07/17/20 07/17/20 02:05 02:05 02:10 WBC 3.5 L RBC 3.75 L Hgb 12.5 L Hct 37.4 L MCV 99.7 H MCH 33.3 H MCHC 33.4 RDW Std Deviation 62.9 H RDW Coeff of Delilah 17.2 H Plt Count 46 L* MPV 10.0 Immature Gran % (Auto) 0.300 Neut % (Auto) 54.2 Lymph % (Auto) 29.0 [place] % (Auto) 14.5 H Eos % (Auto) 1.7 Baso % (Auto) 0.3 Absolute Neuts (auto) 1.9 L Absolute Lymphs (auto) 1.02 Nucleated RBC % 0 Diff Path Review May foll Platelet Estimate MKD DEC Sodium 143 Potassium 3.7 Chloride 110 H Carbon Dioxide 27.0 Anion Gap 6 BUN 3 L Creatinine 0.63 L Estim Creat Clear Calc 134.46 Est GFR (MDRD) Af Amer 168 Est GFR (MDRD) Non-Af 139 BUN/Creatinine Ratio 4.8 L Glucose 117 H Lactic Acid Calcium 7.8 L Total Bilirubin 1.30 H AST 93 H ALT 50 Alkaline Phosphatase 109 Ammonia 35.0 H Total Protein 6.6 Albumin 2.7 L Globulin 3.9 Albumin/Globulin Ratio 0.7 L Lipase 329 Urine Color Urine Clarity Urine pH Ur Specific [place] Urine Protein Urine Glucose (UA) Urine Ketones Urine Occult Blood Urine Nitrite Urine Bilirubin Urine Urobilinogen Ur Leukocyte Esterase Urine RBC Urine WBC Ur Squamous Epith Cells Urine Bacteria Hyaline Casts Urine Mucus Ethyl Alcohol 07/17/20 07/17/20 07/17/20 02:10 03:05 03:45 WBC RBC Hgb Hct MCV MCH MCHC RDW Std Deviation RDW Coeff of Delilah Plt Count MPV Immature Gran % (Auto) Neut % (Auto) Lymph % (Auto) [place] % (Auto) Eos % (Auto) Baso % (Auto) Absolute Neuts (auto) Absolute Lymphs (auto) Nucleated RBC % Diff Path Review Platelet Estimate Sodium Potassium Chloride Carbon Dioxide Anion Gap BUN Creatinine Estim Creat Clear Calc Est GFR (MDRD) Af Amer Est GFR (MDRD) Non-Af BUN/Creatinine Ratio Glucose Lactic Acid 2.2 H* Calcium Total Bilirubin AST ALT Alkaline Phosphatase Ammonia Total Protein Albumin Globulin Albumin/Globulin Ratio Lipase Urine Color Yellow Urine Clarity Sl. Cloudy Urine pH 5.0 Ur Specific [place] 1.025 Urine Protein Negative Urine Glucose (UA) Normal Urine Ketones Negative Urine Occult Blood Negative Urine Nitrite Negative Urine Bilirubin Negative Urine Urobilinogen 1 H Ur Leukocyte Esterase 25 H Urine RBC 0 SEEN Urine WBC 0 SEEN Ur Squamous Epith Cells 0-5 SEEN Urine Bacteria RARE Hyaline Casts 0-5 SEEN Urine Mucus 2+ Ethyl Alcohol 183.0 Patient has pancytopenia peer review of prior records indicate he has history of pancytopenia. Total bili slightly up. This is lower than normal. Lipase is normal. Ammonia level is pending. Radiography Diagnostic Testing: Radiology Impression Abdomen/Pelvis CT 07/17/20 02:08 IMPRESSION: Findings of chronic liver disease. Wall thickening involving small bowel secondary to enteritis or ascites. Colitis involving the right-sided colon noted previously. Possible early acute appendicitis. Electronically Signed: Donald Corley MD at 4:41 EDT , Service support , ADDENDUM: 07/17/[address] of the abdomen reveals fluid collection around the liver. There appears to be gallstones as well. There is no evidence of diverticulitis. Awaiting formal read. Ultrasound was used to determine if there was significant enough fluid to perform a paracentesis. There is no significant amount of fluid noted. I am hesitant to perform paracentesis since the fluid is around his liver is in pockets and he is thrombocytopenic. With elevated lactate blood cultures were obtained and he was treated with Zosyn for presumed spontaneous bacterial peritonitis. There is evidence of cholelithiasis with no obvious evidence of acute cholecystitis. The radiologist Dr. Donald Fuentes spoke with me. The findings noted on the CAT scan of the abdomen pelvis can be caused because of spontaneous bacterial peritonitis. Dr. Rivera did evaluate patient and review CAT scan. He he is under the opinion the patient will need surgery and has significant colitis. Since patient had repair of his abdominal aortic aneurysm and exit hospital he requested transfer to [facility]. Spoke with the call center. They requested copy of patient's CAT scan report and my report. We will have pocket secretary assembler fax this to them as well as demographics. Patient was excepted and will be an ER to ER transfer. NG was placed. Critical Care Time Critical care time (excluding procedures): 30-74 minutes (Total time 35 minutes), Including time spent: (Obtaining history, performing physical exam, review of prior records, fast scan of the abdomen, interpretation of laboratory results, initiation of treatment), Discussing w/Patient &/or Family/Professor Of Environmental Engineering, Discussing w/Consultants and Arranging Admission or Transfer Discharge Plan Dx/Rx/DC Orders Clinical Impression: Spontaneous bacterial peritonitis, Severe sepsis with acute organ dysfunction, Pancytopenia, Alcohol intoxication in active alcoholic, Cholelithiasis Disposition Disposition: Acute Care Hospital [facility]
[2020-07-17 02:16] LABS: Absolute Lymphocyte Count 1.02 X10^3/uL (0.83-4.51); Absolute Neutrophil Count 1.9 X10^3/uL (2.0-7.7); Basophil# 0.01 X10^3/uL; Basophil% 0.3 % (0-1); Eosinophil# 0.06 X10^3/uL; Eosinophils% 1.7 % (0-5); Hematocrit 37.4 % (40-54); Hemoglobin 12.5 g/dL (13.0-16.5); Lymphocyte # 1.02 X10^3/ul (0.83-4.51); Mean Corp Hgb Conc 33.4 g/dL (32-36); Mean Corpuscular Hgb 33.3 pg (27.0-32.0); Mean Corpuscular Volume 99.7 fL (80-94); Monocyte# 0.51 X10^3/uL; Monocyte% 14.5 % (0-10); NRBC Flagged by Analyzer 0 % (0-5); Neutrophil # 1.91 X10^3/uL (2.7-7.7); Neutrophil % 54.2 % (47-70); POSITIVE COUNT YES; RBC Distribution Width CV 17.2 % (11.6-14.6); RBC Distribution Width SD 62.9 fl (35.1-43.9); Red Blood Count 3.75 M/mm3 (4.6-6.2); White Blood Count 3.5 K/mm3 (4.4-11.0)
[2020-07-17] MEDS: Morphine 4 MG/ML Syringe IV (02:16)
[2020-07-17] MEDS: Ondansetron 4 MG/2 ML Vial IV (02:16)
[2020-07-17] MEDS: 0.9% Normal Saline 1,000 ML 250 ML IV ×2 (02:17→06:20)
[2020-07-17 02:18] LABS: Differential Indicated SCAN CRITERIA MET; Platelet Count 46 K/mm3 (150-450)
[2020-07-17 02:19] LABS: Platelet Estimate MKD DEC (ADEQ)
[2020-07-17 02:30] LABS: ALB/GLOB Ratio 0.7 RATIO (0.9-2.4); AST(SGOT) 93 U/L (15-37); Alanine Aminotransfer ALT/SGPT 50 U/L (16-61); Albumin, Serum 2.7 g/dL (3.2-5.0); Alkaline Phosphatase 109 U/L (45-117); Anion Gap 6 (5-15); BUN 3 mg/dL (7-18); BUN/Creat Ratio 4.8 RATIO (10-20); Calcium,Total 7.8 mg/dL (8.5-10.1); Chloride 110 mmol/L (98-107); Creatinine, Serum 0.63 mg/dL (0.70-1.30); EST Glomerular Filtration Rate 139 mL/min (>60); Est Glom Filt Rate - Afr Amer 168 mL/min (>60); Estimated Creatinine Clearance 134.46 ml/min; Globulin 3.9 g/dL (2.2-4.2); Glucose 117 mg/dL (74-106); Lipase 329 U/L (73-393); Potassium 3.7 mmol/L (3.5-5.1); Protein, Total 6.6 g/dL (6.4-8.2); Sodium Level 143 mmol/L (136-145)
--- NOTE | 2020-07-17 02:37 | ED.RN ---
Patient states he is still nauseated and in pain and aware we have to give medication time to work for the pain and will talk to the doctor. Dr is aware and patient is aware working on the time for med to kick in and want to get some test and lab results for eval to determine if there is a better action we can take to help with these symptoms.
[2020-07-17 02:58] LABS: Lactic Acid 2.2 mmol/L (0.4-1.9)
[2020-07-17] MEDS: Metoclopramide 10 MG/2 ML Vial IV (02:58)
[2020-07-17 03:52] LABS: Red Blood Cells-Urine 0 SEEN /hpf (0-5); White Blood Cells 0 SEEN /hpf (0-5)
[2020-07-17 03:54] LABS: Color, Urine Yellow (Yellow); Glucose, Dipstick Normal (Normal); Ketone-Dipstick Negative (Negative); Leukocyte Esterase-Dipstick 25 /ul (Negative); Nitrite-Dipstick Negative (Negative); Occult Blood-Urine Negative /ul (Negative); Protein-Dipstick Negative (Negative); Specific Gravity, Urine 1.025 (1.002-1.030); Urine Bilirubin Dipstick Negative (Negative); Urine Clarity Sl. Cloudy (Clear); Urine Urobilinogen 1 mg/dl (Normal)
[2020-07-17 04:09] VITALS: BP 127/72; PULSE 88; RESP 16; O2SAT 96
[2020-07-17 04:15] LABS: Mucous, Urine 2+ /hpf (<or=2+)
[2020-07-17 04:16] LABS: Bacteria RARE /hpf (None Seen); Squamous Epithelial Cells - UA 0-5 SEEN /hpf (0-5)
[2020-07-17 04:17] LABS: Hyaline Cast 0-5 SEEN /lpf (0-5)
--- NOTE | 2020-07-17 05:33 | EX.PCM.CON.S ---
Assessment & Plan Assessment/Plan (1) Spontaneous bacterial peritonitis: (2) Severe sepsis with acute organ dysfunction: (3) Pancytopenia: (4) Alcohol intoxication in active alcoholic: QUALIFIERS: Complication of substance-induced condition: uncomplicated Qualified Code(s): F10.220 - Alcohol dependence with intoxication, uncomplicated (5) Cholelithiasis: QUALIFIERS: Cholelithiasis location: gallbladder Cholecystitis presence: without cholecystitis Biliary obstruction: without biliary obstruction Qualified Code(s): K80.20 - Calculus of gallbladder without cholecystitis without obstruction (6) Abdominal pain: QUALIFIERS: Abdominal location: right lower quadrant Qualified Code(s): R10.31 - Right lower quadrant pain PLAN: Given CAT scan findings with pancytopenia I believe his the case that is best transfer to a larger tertiary referral center. He is more likely going to need to have some form of right-sided colectomy and it is highly unlikely I think that he is going to be able to be medically managed. I discussed the case with Dr. Gaitan who will be transferring him to a larger center. HPI Consult Data Date of Consult: 07/17/20 HPI Narrative HPI Narrative: JB ALARCON, is a 59 M who presents with history of alcoholic liver disease with cirrhosis. He states he is never had ascites. He presents because of abdominal pain, distention. Onset yesterday at 1800. Pain has gotten worse over the past 3 hours. He arrived by ambulance. He denies fever, chills night sweats. He denies vomiting or change in bowels. He states he has chronic diarrhea. He is on lactulose. He states his been compliant with his lactulose. He is also on iron. He denies dysuria, frequency, urgency or hematuria. He does bruise easily. States he is not on an anticoagulant. Review of prior records indicates he has thrombocytopenia. He does admit to drinking a 12 pack/week. He denies cardiac respiratory symptoms. [facility] Medical History Aortic aneurysm without rupture Benign essential hypertension Diastolic dysfunction Esophageal varices in alcoholic cirrhosis Liver cirrhosis, alcoholic Peripheral arterial disease Home Medications ferrous sulfate [iron] 325 mg PO DAILY 03/20/18 [History Last Taken 03/11/20] nadolol 20 mg PO DAILY 03/20/18 [History Last Taken 03/11/20] pantoprazole 40 mg PO DAILY 03/20/18 [History Last Taken 03/11/20] thiamine HCl (vitamin B1) [Vitamin B-1] 100 mg PO DAILY 03/20/18 [History Last Taken 03/11/20] spironolactone 12.5 mg PO DAILY 08/20/18 [History Last Taken 03/11/20] lactulose 10 ml PO TID 03/12/20 [History Last Taken 03/11/20] magnesium oxide 400 mg PO DAILYCM 03/12/20 [History Last Taken 03/11/20] potassium chloride 10 meq PO BID 03/12/20 [History Last Taken 03/11/20] tramadol 100 mg PO Q6H PRN PRN 03/12/20 [History Last Taken Unknown] trazodone 100 mg PO QHS 03/12/20 [History Last Taken 03/11/20] multivitamin,fm-vyak-pvlsuzey 1 tab PO DAILYCM tab 03/13/20 [Rx Last Taken Unknown] benzonatate 100 mg PO TID PRN PRN 04/04/20 [History Last Taken Unknown] ondansetron 4 mg PO Q8H PRN PRN #10 tab 04/27/20 [Rx Last Taken Unknown] promethazine 25 mg PO Q6H PRN PRN #15 tablet 06/29/20 [Rx Last Taken Unknown] Allergy/AdvReac Type Severity Reaction Status Date / Time No Known Allergies Allergy Verified 07/17/20 02:04 Surgical History History of aortic aneurysm repair Social History household members: none Smoking Status: Current every day smoker alcohol intake: current alcohol intake frequency: a few times a week substance use type: does not use ROS Constitutional Constitutional: Denies chills Cardiovascular Cardiovascular: Denies chest pain or chest pain at rest Respiratory/Chest Respiratory/Chest: Denies cough or dyspnea Gastrointestinal Gastrointestinal: Reports abdominal pain, bloating, diarrhea and nausea; Denies hematochezia, melena or rectal bleeding Physical Exam Const alert and oriented x3 General Appearance: cooperative Eyes PERRL and EOMs intact bilaterally Resp clear to auscultation bilaterally Cardio Rate: regular rate Rhythm: regular rhythm GI Inspection: abdominal distention Auscultation: hypoactive bowel sounds Palpation: tender RLQ, guarding and ascites Lab / Micro Data Result Diagrams: 07/17/20 02:05 07/17/20 02:05 Labs: Laboratory Results - last 24 hr 07/17/20 07/17/20 07/17/20 02:05 02:05 02:10 WBC 3.5 L RBC 3.75 L Hgb 12.5 L Hct 37.4 L MCV 99.7 H MCH 33.3 H MCHC 33.4 RDW Std Deviation 62.9 H RDW Coeff of Delilah 17.2 H Plt Count 46 L* MPV 10.0 Immature Gran % (Auto) 0.300 Neut % (Auto) 54.2 Lymph % (Auto) 29.0 Coal % (Auto) 14.5 H Eos % (Auto) 1.7 Baso % (Auto) 0.3 Absolute Neuts (auto) 1.9 L Absolute Lymphs (auto) 1.02 Nucleated RBC % 0 Diff Path Review May foll Platelet Estimate MKD DEC Sodium 143 Potassium 3.7 Chloride 110 H Carbon Dioxide 27.0 Anion Gap 6 BUN 3 L Creatinine 0.63 L Estim Creat Clear Calc 134.46 Est GFR (MDRD) Af Amer 168 Est GFR (MDRD) Non-Af 139 BUN/Creatinine Ratio 4.8 L Glucose 117 H Lactic Acid Calcium 7.8 L Total Bilirubin 1.30 H AST 93 H ALT 50 Alkaline Phosphatase 109 Ammonia 35.0 H Total Protein 6.6 Albumin 2.7 L Globulin 3.9 Albumin/Globulin Ratio 0.7 L Lipase 329 Urine Color Urine Clarity Urine pH Ur Specific [place] Urine Protein Urine Glucose (UA) Urine Ketones Urine Occult Blood Urine Nitrite Urine Bilirubin Urine Urobilinogen Ur Leukocyte Esterase Urine RBC Urine WBC Ur Squamous Epith Cells Urine Bacteria Hyaline Casts Urine Mucus Ethyl Alcohol 07/17/20 07/17/20 07/17/20 02:10 03:05 03:45 WBC RBC Hgb Hct MCV MCH MCHC RDW Std Deviation RDW Coeff of Delilah Plt Count MPV Immature Gran % (Auto) Neut % (Auto) Lymph % (Auto) Coal % (Auto) Eos % (Auto) Baso % (Auto) Absolute Neuts (auto) Absolute Lymphs (auto) Nucleated RBC % Diff Path Review Platelet Estimate Sodium Potassium Chloride Carbon Dioxide Anion Gap BUN Creatinine Estim Creat Clear Calc Est GFR (MDRD) Af Amer Est GFR (MDRD) Non-Af BUN/Creatinine Ratio Glucose Lactic Acid 2.2 H* Calcium Total Bilirubin AST ALT Alkaline Phosphatase Ammonia Total Protein Albumin Globulin Albumin/Globulin Ratio Lipase Urine Color Yellow Urine Clarity Sl. Cloudy Urine pH 5.0 Ur Specific [place] 1.025 Urine Protein Negative Urine Glucose (UA) Normal Urine Ketones Negative Urine Occult Blood Negative Urine Nitrite Negative Urine Bilirubin Negative Urine Urobilinogen 1 H Ur Leukocyte Esterase 25 H Urine RBC 0 SEEN Urine WBC 0 SEEN Ur Squamous Epith Cells 0-5 SEEN Urine Bacteria RARE Hyaline Casts 0-5 SEEN Urine Mucus 2+ Ethyl Alcohol 183.0 Radiology Impression Abdomen/Pelvis CT 07/17/20 02:08 IMPRESSION: Findings of chronic liver disease. Wall thickening involving small bowel secondary to enteritis or ascites. Colitis involving the right-sided colon noted previously. Possible early acute appendicitis. Electronically Signed: Donald Corley MD at 4:41 EDT , Service support , ADDENDUM: 07/17/20 [id number]
[2020-07-17 05:38] VITALS: BP 124/49; PULSE 108; RESP 16; O2SAT 98
--- NOTE | 2020-07-17 06:15 | RAD_ITS ---
STUDY: X-RAY - ABDOMEN REASON FOR EXAM: Male, 59 years old. Verify placement of NG -- KUB with both diaphragms for NG/OG Verification TECHNIQUE: A single AP view of the abdomen and lower lung shea was performed. COMPARISON: Abdominal x-ray 04/18/2020. CT scan abdomen and pelvis 07/17/2020. FINDINGS: Normal visualized lung bases. The nasogastric tube loops within the distal esophagus. It may be kinked at the level of the sidehole. There is an unremarkable bowel gas pattern. There is no demonstrated free abdominal air. The visualized liver, spleen and kidneys are grossly normal in size and morphology. Normal soft tissue structures. Normal visualized osseous structures. RAD/Abdomen Single View (Portable) IMPRESSION: Nasogastric tube does not enter the stomach. It loops within the distal esophagus and it may be kinked at the level of the sidehole. Would suggest removing and replacing the tube. Unremarkable bowel gas pattern within the visualized abdomen. Electronically Signed: Yayo Waldron MD at 7:55 EDT , Service support ,
[2020-07-17 06:17] LABS: Reflex Lactate? Y
[2020-07-17] MEDS: Oxymetazoline 0.05% 1 SPRAY SPRAY.BTL 2 SPRAY NASAL (06:29)
[2020-07-17] MEDS: Lidocaine 4% 5 ML Ampul 2 ML INHALATION (06:30)
[2020-07-17] MEDS: LORazepam 2 MG/ML Syringe 1 MG IV (06:31)
[2020-07-17 06:47] VITALS: BP 101/79; PULSE 108; RESP 18; TEMP -8.8; TEMP 16; O2SAT 92
[2020-07-17 07:00] LABS: Lactic Acid 2.3 mmol/L (0.4-1.9)
--- NOTE | 2020-07-17 07:11 | RAD_ITS ---
STUDY: X-RAY - ABDOMEN REASON FOR EXAM: Male, 59 years old. NG TUBE PLACEMENT TECHNIQUE: A single AP upright view of the abdomen and lower chest was performed. The current exam was done at 0707 hours. COMPARISON: Exam done at 0656 hours. FINDINGS: Normal visualized lung bases. Since the previous exam, the nasogastric tube has either been repositioned or replaced. The tip and sidehole of the tube are now within the expected region of the proximal body of the stomach. There is an unremarkable bowel gas pattern. There is no demonstrated free abdominal air. The visualized liver, spleen and kidneys are grossly normal in size and morphology. Normal soft tissue structures. Normal visualized osseous structures. RAD/Abdomen Single View (Portable) IMPRESSION: Nasogastric tube is in good position. Nonspecific bowel gas pattern. Electronically Signed: Yayo Waldron MD at 7:57 EDT , Service support ,
--- NOTE | 2020-07-17 07:19 | NURSING ---
Patient not getting infusion of NS while on squad to get to [place]
[2020-07-17 10:19] LABS: Pathologist Review Reviewed
== END 2020-07-17 07:19 | disposition short-term general hospital (02) ==
PROVIDERS: Emergency Provider Emergency Medicine; PCP Family Medicine
DX: A41.9 Sepsis, unspecified organism (principal); K65.2 Spontaneous bacterial peritonitis; K52.9 Noninfective gastroenteritis and colitis, unspecified; R65.20 Severe sepsis without septic shock; I10 Essential (primary) hypertension; I71.4 Abdominal aortic aneurysm, without rupture; I73.9 Peripheral vascular disease, unspecified; Z86.79 Personal history of other diseases of the circulatory system; F17.210 Nicotine dependence, cigarettes, uncomplicated; F10.220 Alcohol dependence with intoxication, uncomplicated; K70.30 Alcoholic cirrhosis of liver without ascites
CPT/HCPCS: 74018; 74177; 80053; 81001; 82077; 82140; 83605; 83690; 85025; 87040; 87426; 96361; 96365; 96375; 99285; J7030; Q9967; A4216; J2405

== ENCOUNTER 2020-07-26 01:48 | Emergency (ER) | payer OTHER, SELFPAY ==
[2020-07-26 01:49] VITALS: BP 123/61; PULSE 72; RESP 18; TEMP 36.3; O2SAT 97; BMI 26.2
--- NOTE | 2020-07-26 02:15 | EDS_ITS ---
HPI History of Present Illness Chief Complaint: Abd Pain Narrative Narrative: Patient stated he was recently seen here at our facility. He was diagnosed with a colitis and gallstones via CT with oral and IV contrast. Lab work showed a pancytopenia. This is secondary to his alcoholism and liver cirrhosis. He is esophageal varices. He was seen by our surgeon Dr. Rivera who was uncomfortable with any surgical procedures due to his pancytopenia and complicated medical history. He was sent to [facility]. He was hospitalized there and given IV antibiotics for a suspected colitis. He elected not to have any surgery at that time. He was discharged a few days ago. He st ated he does not have pain medicine. He has persistent pain since discharge. He denies any nausea. He has chronic diarrhea due to being on lactulose. He is back to drinking alcohol per patient. [facility] Medical History Aortic aneurysm without rupture Benign essential hypertension Diastolic dysfunction Esophageal varices in alcoholic cirrhosis Liver cirrhosis, alcoholic Peripheral arterial disease Home Medications ferrous sulfate [iron] 325 mg PO DAILY 03/20/18 [History Last Taken 03/11/20] nadolol 40 mg PO DAILY 03/20/18 [History Last Taken 03/11/20] pantoprazole 40 mg PO DAILY 03/20/18 [History Last Taken 03/11/20] thiamine HCl (vitamin B1) [Vitamin B-1] 100 mg PO DAILY 03/20/18 [History Last Taken 03/11/20] spironolactone 12.5 mg PO DAILY 08/20/18 [History Last Taken 03/11/20] lactulose 10 ml PO TID 03/12/20 [History Last Taken 03/11/20] magnesium oxide 400 mg PO DAILYCM 03/12/20 [History Last Taken 03/11/20] potassium chloride 10 meq PO BID 03/12/20 [History Last Taken 03/11/20] tramadol 50 mg PO Q6H PRN PRN 03/12/20 [History Last Taken Unknown] trazodone 100 mg PO QHS 03/12/20 [History Last Taken 03/11/20] multivitamin,vq-etcj-hukrsulh 1 tab PO DAILYCM tab 03/13/20 [Rx Last Taken Unkn own] ondansetron 4 mg PO Q8H PRN PRN #10 tab 04/27/20 [Rx Last Taken Unknown] promethazine 25 mg PO Q6H PRN PRN #15 tablet 06/29/20 [Rx Last Taken Unknown] tamsulosin 0.4 mg PO DAILY 07/26/20 [History Last Taken Unknown] Allergy/AdvReac Type Severity Reaction Status Date / Time No Known Allergies Allergy Verified 07/26/20 01:53 Surgical History History of aortic aneurysm repair Social History household members: none Smoking Status: Current every day smoker tobacco type: cigarettes alcohol intake: current alcohol intake frequency: a few times a week substance use type: does not use ROS ROS ED ROS Narrative ROS General: Denies fever, chills, sweats Eyes: Denies visual changes, blurred vision, double vision ENT: Denies ear pain, rhinorrhea, sore throat Cardiovascular: Denies chest pain, palpitations, heart racing Respiratory: Denies dyspnea, cough, sputum, dyspnea on exertion, orthopnea,PND GI: See HPI : Denies dysuria, hematuria, frequency Musculoskeletal: Denies myalgias, arthralgias, neck pain, back pain Skin: Denies rash, abscess, abrasions Neuro: Denies headache, weakness, paresthesia Psych: Denies depression, anxiety Endo: Denies polyuria, polydipsia, polyphagia Heme: Denies easy bruising, easy bleeding, lymphadenopathy Allergy: Denies hives, swelling EXAM Physical Exam Narrative Exam Narrative: Vital signs reviewed General: Well-nourished well-developed Head: Normocephalic atraumatic Eyes: Pupils equal round and reactive to light extraocular movements intact ENT: TMs clear no hemotympanum no trauma Neck: Nontender full range of motion Cardiovascular: Regular rate rhythm no murmurs normal S1-S2 Respiratory: No distress clear to auscultation bilaterally chest nontender Abdomen: Tender to palpation diffusely mild without guarding or rebound. Tender in the right upper quadrant as well. No guarding or rebound. No fluid wave. Back: Nontender no CVA tenderness Extremities: Nontender active range of motion ?4 extremities no trauma Skin: Normal color no trauma Neuro alert oriented cranial nerves II through XII intact normal strength sensation reflexes Const Vital Signs: 07/26/20 01:49 Temperature 97.4 F L Temperature Source Oral Pulse Rate 72 Respiratory Rate 18 Blood Pressure 123/61 H Blood Pressure Mean 81 Pulse Ox 97 Oxygen Delivery Method Room Air MDM MDM MDM Narrative Medical decision making narrative: Lab work obtained. Given a dose of morphine for pain. [place] much better on reevaluation. The patient's discharge summary was obtained as he is a poor historian. He did not feel he had a surgical abdomen. He was seen by general surgery. He was on antibiotics and he stopped them after 3 days. They did not feel he needed to be home on antibiotics. Upon further evaluation [facility] they felt that this was a chronic problem that has been going on for months. He had an ultrasound that showed nothing that they could drain at the time on reevaluation he is resting comfortably. Lab work shows chronic findings including pancytopenia. His platelets are mildly better. His electrolytes showed no major acute abnormalities. His liver function test show chronic liver disease secondary to his alcoholism a lipase is negative. He is instructed to stop drinking. On reevaluation his abdomen is relatively soft. I do not feel he is emergently ill. I feel he can follow-up as an outpatient. He was given referral to gastroenterology. He is encouraged to stop drinking. Disposition Home. I do not feel he needs repeat imaging Lab Data Labs: Laboratory Results - last 24 hr 07/26/20 07/26/20 01:53 01:53 WBC 3.5 L RBC 3.93 L Hgb 13.3 Hct 39.7 L MCV 101.0 H MCH 33.8 H MCHC 33.5 RDW Std Deviation 62.2 H RDW Coeff of Delilah 16.4 H Plt Count 63 L MPV 10.5 Immature Gran % (Auto) 0.300 Neut % (Auto) 22.4 L Lymph % (Auto) 58.2 H [place] % (Auto) 15.6 H Eos % (Auto) 2.6 Baso % (Auto) 0.9 Absolute Neuts (auto) 0.8 L Absolute Lymphs (auto) 2.05 Nucleated RBC % 0 Sodium 142 Potassium 4.2 Chloride 109 H Carbon Dioxide 29.0 Anion Gap 4 L BUN 3 L Creatinine 0.60 L Estim Creat Clear Calc 141.19 Est GFR (MDRD) Af Amer 178 Est GFR (MDRD) Non-Af 147 BUN/Creatinine Ratio 5.0 L Glucose 125 H Calcium 8.3 L Total Bilirubin 1.10 H Direct Bilirubin 0.56 H AST 91 H ALT 46 Alkaline Phosphatase 116 Total Protein 6.9 Albumin 3.0 L Globulin 3.9 Lipase 216 Discharge Plan Triage Chief Complaint: Abd Pain ED Provider: Rigoberto Wang Dx/Rx/DC Orders Prescriptions: No Action thiamine HCl (vitamin B1) [Vitamin B-1] 100 MG tablet 100 mg PO DAILY RF: 0 nadolol 20 MG tablet 40 mg PO DAILY RF: 0 pantoprazole 40 MG tablet,delayed release (DR/EC) 40 mg PO DAILY RF: 0 ferrous sulfate [iron] 325 MG tablet 325 mg PO DAILY RF: 0 spironolactone 25 MG tablet 12.5 mg PO DAILY RF: 0 tramadol 50 MG tablet 50 mg PO Q6H PRN PRN (Reason: Pain Score 1-10) RF: 0 potassium chloride 10 MEQ tablet extended release 10 meq PO BID RF: 0 magnesium oxide 400 MG tablet 400 mg PO DAILYCM RF: 0 trazodone 100 MG tablet 100 mg PO QHS RF: 0 lactulose 10 GM/15 ML solution 10 ml PO TID RF: 0 multivitamin,km-qtpn-dhzykjyn 1 TABLET tablet 1 tab PO DAILYCM RF: 0 ondansetron 4 MG tablet 4 mg PO Q8H PRN PRN (Reason: Nausea) Qty: 10 RF: 0 promethazine [promethazine] 25 MG tablet 25 mg PO Q6H PRN PRN (Reason: Nausea) Qty: 15 RF: 0 tamsulosin 0.4 mg Capsule 0.4 mg PO DAILY RF: 0 Primary Care Provider: Alice Cuellar
[2020-07-26 02:21] LABS: Absolute Lymphocyte Count 2.05 X10^3/uL (0.83-4.51); Absolute Neutrophil Count 0.8 X10^3/uL (2.0-7.7); Basophil# 0.03 X10^3/uL; Basophil% 0.9 % (0-1); Eosinophil# 0.09 X10^3/uL; Eosinophils% 2.6 % (0-5); Hematocrit 39.7 % (40-54); Hemoglobin 13.3 g/dL (13.0-16.5); Lymphocyte # 2.05 X10^3/ul (0.83-4.51); Lymphocyte % 58.2 % (19-41); Mean Corp Hgb Conc 33.5 g/dL (32-36); Mean Corpuscular Hgb 33.8 pg (27.0-32.0); Mean Platelet Vol. 10.5 fl (6.2-12.0); Monocyte# 0.55 X10^3/uL; Monocyte% 15.6 % (0-10); NRBC Flagged by Analyzer 0 % (0-5); Neutrophil # 0.79 X10^3/uL (2.7-7.7); Neutrophil % 22.4 % (47-70); POSITIVE COUNT YES; POSITIVE DIFFERENTIAL YES; Platelet Count 63 K/mm3 (150-450); RBC Distribution Width CV 16.4 % (11.6-14.6); RBC Distribution Width SD 62.2 fl (35.1-43.9); Red Blood Count 3.93 M/mm3 (4.6-6.2); White Blood Count 3.5 K/mm3 (4.4-11.0)
[2020-07-26 02:22] LABS: Differential Indicated SCAN CRITERIA MET
[2020-07-26] MEDS: Morphine 4 MG/ML Syringe IV (02:31)
[2020-07-26 02:33] LABS: AST(SGOT) 91 U/L (15-37); Alanine Aminotransfer ALT/SGPT 46 U/L (16-61); Alkaline Phosphatase 116 U/L (45-117); Anion Gap 4 (5-15); BUN 3 mg/dL (7-18); Bilirubin, Direct 0.56 mg/dL (0.00-0.30); Calcium,Total 8.3 mg/dL (8.5-10.1); Chloride 109 mmol/L (98-107); EST Glomerular Filtration Rate 147 mL/min (>60); Est Glom Filt Rate - Afr Amer 178 mL/min (>60); Estimated Creatinine Clearance 141.19 ml/min; Globulin 3.9 g/dL (2.2-4.2); Glucose 125 mg/dL (74-106); Lipase 216 U/L (73-393); Potassium 4.2 mmol/L (3.5-5.1); Protein, Total 6.9 g/dL (6.4-8.2); Sodium Level 142 mmol/L (136-145)
[2020-07-26 03:32] VITALS: PULSE 76; RESP 18; O2SAT 96
[2020-07-26 03:49] VITALS: RESP 16
[2020-07-26 05:00] VITALS: RESP 16
== END 2020-07-26 06:04 | disposition home or self-care (01) ==
PROVIDERS: Emergency Provider Emergency Medicine; PCP Family Medicine
DX: R10.9 Unspecified abdominal pain (principal); F17.210 Nicotine dependence, cigarettes, uncomplicated; Z86.79 Personal history of other diseases of the circulatory system; I10 Essential (primary) hypertension; K70.30 Alcoholic cirrhosis of liver without ascites; I85.10 Secondary esophageal varices without bleeding; F10.20 Alcohol dependence, uncomplicated; Y90.9 Presence of alcohol in blood, level not specified; I73.9 Peripheral vascular disease, unspecified
CPT/HCPCS: 80048; 80076; 83690; 85025; 96374; 99285; A4216

== ENCOUNTER 2020-07-28 23:18 | Emergency (ER) | payer OTHER, SELFPAY ==
[2020-07-28 23:19] VITALS: BP 133/78; PULSE 82; RESP 15; TEMP 35.9; O2SAT 97; BMI 25.8
--- NOTE | 2020-07-29 | EDS_ITS ---
HPI History of Present Illness Chief Complaint: Abd Pain Informant: patient Narrative Narrative: 59-year-old male with a history of liver cirrhosis secondary to alcoholism and esophageal varicosities presents the emergency department for abdominal pain. Patient states this is the same pain he has had multiple times. It is on the right side of his abdomen. He notes chronic diarrhea due to lactulose. Couple weeks ago he was seen in the emergency department had surgical consultation was felt that he had colitis and they recommended transfer to tertiary care facility for possible hemicolectomy and cholecystectomy. Patient states that they gave him antibiotics and sent him home. He does not believe he has any follow-up. He returned to the emergency department several days ago and was discharged. He returns tonight noting nausea and the continued pain. Patient is a very poor historian. Almost every piece of information other than his current symptoms has to be obtained by combing through the chart. [facility] Medical History Aortic aneurysm without rupture Benign essential hypertension Diastolic dysfunction Esophageal varices in alcoholic cirrhosis Liver cirrhosis, alcoholic Peripheral arterial disease Home Medications ferrous sulfate [iron] 325 mg PO DAILY 03/20/18 [History Last Taken 03/11/20] nadolol 40 mg PO DAILY 03/20/18 [History Last Taken 03/11/20] pantoprazole 40 mg PO DAILY 03/20/18 [History Last Taken 03/11/20] thiamine HCl (vitamin B1) [Vitamin B-1] 100 mg PO DAILY 03/20/18 [History Last Taken 03/11/20] spironolactone 12.5 mg PO DAILY 08/20/18 [History Last Taken 03/11/20] lactulose 10 ml PO TID 03/12/20 [History Last Taken 03/11/20] magnesium oxide 400 mg PO DAILYCM 03/12/20 [History Last Taken 03/11/20] potassium chloride 10 meq PO BID 03/12/20 [History Last Taken 03/11/20] tramadol 50 mg PO Q6H PRN PRN 03/12/20 [History Last Taken Unknown] trazodone 100 mg PO QHS 03/12/20 [History Last Taken 03/11/20] multivitamin,nr-kgqy-iedteowg 1 tab PO DAILYCM tab 03/13/20 [Rx Last Taken Unknown] ondansetron 4 mg PO Q8H PRN PRN #10 tab 04/27/20 [Rx Last Taken Unknown] promethazine 25 mg PO Q6H PRN PRN #15 tablet 06/29/20 [Rx Last Taken Unknown] tamsulosin 0.4 mg PO DAILY 07/26/20 [History Last Taken Unknown] hydrocodone-acetaminophen 1 tab PO Q6H PRN PRN 3 Days #12 tablet 07/29/20 [Rx Last Taken Unknown] ondansetron 4 mg PO Q6H PRN PRN #10 tab 07/29/20 [Rx Last Taken Unknown] Allergy/AdvReac Type Severity Reaction Status Date / Time No Known Allergies Allergy Verified 07/28/20 23:23 Surgical History History of aortic aneurysm repair Social History household members: none Smoking Status: Current every day smoker tobacco type: cigarettes alcohol intake: current alcohol intake frequency: a few times a week substance use type: does not use ROS ROS ED Constitutional Constitutional ED: Denies chills or weight loss Eyes Eyes: Denies change in vision or diplopia ENT ENT ED: Denies ear pain, rhinorrhea or sore throat Cardiovascular Cardiovascular: Denies chest pain, orthopnea, palpitations or racing heartbeat Respiratory/Chest Respiratory/Chest: Denies cough, dyspnea or orthopnea Gastrointestinal Gastrointestinal: Reports abdominal pain, diarrhea and nausea; Denies vomiting Genitourinary Genitourinary ED: Denies dysuria, hematuria or urinary frequency Musculoskeletal Musculoskeletal: Denies arthralgias or myalgias Integumentary Denies abscess or rash Neurologic Neurologic: Denies headache(s) or weakness Psychiatric Psychiatric: Denies anxiety, depression, suicidal ideation or suicidal thoughts Endocrine Endocrinology: Denies polydipsia, polyphagia or polyuria Allergic/Immunologic Allergic/Immunologic ED: Denies mouth swelling, tongue swelling or urticaria EXAM Physical Exam Const Vital Signs: 07/28/20 23:19 Temperature 96.6 F L Temperature Source Temporal Pulse Rate 82 Respiratory Rate 15 Blood Pressure 133/78 H Blood Pressure Mean 96 Pulse Ox 97 Oxygen Delivery Method Room Air Positive well nourished and well developed General Appearance ED: well developed HEENT Reports normocephalic, head/scalp atraumatic and moist mucous membranes Eyes PERRL and EOMs intact bilaterally Neck no lymphadenopathy, supple and no JVD Resp normal respiratory effort and clear to auscultation bilaterally Cardio regular rate, regular rhythm and no murmurs GI non-tender Auscultation: normoactive bowel sounds Palpation: soft, tender and guarding; Negative for rebound tenderness present Back/Spine no CVA tenderness and normal ROM Extremity normal to inspection General Extremety ED: Negative for edema General Extremity: Negative for edema Neuro oriented x3 and CN's II-XII intact bilaterally Sensorium / Orientation: alert Motor Exam: strength 5/5 throughout Psych mental status grossly normal Mood & Affect: Negative for depressed or tearful Skin no rashes or lesions noted and no wounds MDM MDM MDM Narrative Medical decision making narrative: Patient's white count 4.1. He is pancytopenic. His liver enzymes are not obstructive pattern. His CT of the abdomen pelvis does not demonstrate any colitis. His gallbladder wall is thickened and he has gallstones. There is no pericholecystic fluid. I think the patient is experiencing recurrent biliary colic. He knows that he is at high risk for surgical complications and was referred to tertiary care. Unfortunately when he was transferred there they did not do a cholecystectomy. He does not know who he was supposed to see for follow-up there. I will give him a referral to [facility] surgery. I will also write for pain and nausea medications. Return if worsening or concerns Lab Data Attestation: I reviewed the patient's lab results. Labs: Laboratory Results - last 24 hr 07/29/20 07/29/20 00:03 00:03 WBC 4.1 L RBC 3.96 L Hgb 13.5 Hct 39.8 L MCV 100.5 H MCH 34.1 H MCHC 33.9 RDW Std Deviation 58.0 H RDW Coeff of Delilah 15.5 H Plt Count 51 L MPV 10.2 Immature Gran % (Auto) 0.200 Neut % (Auto) 37.7 L Lymph % (Auto) 46.6 H Cass % (Auto) 13.1 H Eos % (Auto) 1.7 Baso % (Auto) 0.7 Absolute Neuts (auto) 1.5 L Absolute Lymphs (auto) 1.89 Nucleated RBC % 0 Sodium 143 Potassium 3.9 Chloride 111 H Carbon Dioxide 27.0 Anion Gap 5 BUN 3 L Creatinine 0.60 L Estim Creat Clear Calc 141.19 Est GFR (MDRD) Af Amer 178 Est GFR (MDRD) Non-Af 147 BUN/Creatinine Ratio 5.0 L Glucose 91 Calcium 8.2 L Total Bilirubin 1.50 H AST 90 H ALT 47 Alkaline Phosphatase 123 H Total Protein 7.1 Albumin 2.9 L Globulin 4.2 Albumin/Globulin Ratio 0.7 L Lipase 179 Radiography Diagnostic Testing: Radiology Impression Abdomen/Pelvis CT 07/29/20 00:20 IMPRESSION: Cirrhosis with ascites, but less than previously. Gallbladder wall thickening with gallbladder distention and calcified gallstones similar to the previous study. Diarrhea with liquid and gas within the colon but without bowel wall thickening. No abdominal aortic aneurysm or dissection. Individualized dose optimization techniques were used for this CT. at 0044 Reported and signed by: Enio Matute MD Electronically Signed: Enio Matute MD at 0:42 EDT Tel , Service support , Discharge Plan Triage Chief Complaint: Abd Pain ED Provider: Jose Ramon Dickinson Dx/Rx/DC Orders Clinical Impression: Cholelithiasis, Biliary colic Instructions: ED Gallstones with Biliary Colic Prescriptions: New hydrocodone-acetaminophen [hydrocodone-acetaminophen] 1 TABLET tablet 1 tab PO Q6H PRN PRN (Reason: Pain) 3 Days Qty: 12 RF: 0 ondansetron [ondansetron] 4 MG tablet 4 mg PO Q6H PRN PRN (Reason: Nausea) Qty: 10 RF: 0 No Action thiamine HCl (vitamin B1) [Vitamin B-1] 100 MG tablet 100 mg PO DAILY RF: 0 nadolol 20 MG tablet 40 mg PO DAILY RF: 0 pantoprazole 40 MG tablet,delayed release (DR/EC) 40 mg PO DAILY RF: 0 ferrous sulfate [iron] 325 MG tablet 325 mg PO DAILY RF: 0 spironolactone 25 MG tablet 12.5 mg PO DAILY RF: 0 tramadol 50 MG tablet 50 mg PO Q6H PRN PRN (Reason: Pain Score 1-10) RF: 0 potassium chloride 10 MEQ tablet extended release 10 meq PO BID RF: 0 magnesium oxide 400 MG tablet 400 mg PO DAILYCM RF: 0 trazodone 100 MG tablet 100 mg PO QHS RF: 0 lactulose 10 GM/15 ML solution 10 ml PO TID RF: 0 multivitamin,ih-fown-poomgufl 1 TABLET tablet 1 tab PO DAILYCM RF: 0 ondansetron 4 MG tablet 4 mg PO Q8H PRN PRN (Reason: Nausea) Qty: 10 RF: 0 promethazine [promethazine] 25 MG tablet 25 mg PO Q6H PRN PRN (Reason: Nausea) Qty: 15 RF: 0 tamsulosin 0.4 mg Capsule 0.4 mg PO DAILY RF: 0 Primary Care Provider: Alice Cuellar Referrals: Alice Cuellar DO [Primary Care Provider] - As soon as possible Activity Restrictions/Additional Instructions: As discussed you are too high risk to have a surgical procedure here at this hospital. He may wish to consult general surgery at [facility]. You may call [phone] to arrange a appointment with a general surgeon. Disposition Disposition: Home, self care
[2020-07-29] MEDS: 0.9% Normal Saline 1,000 ML 1000 ML IV (00:01)
[2020-07-29] MEDS: Ondansetron 4 MG/2 ML Vial IV (00:01)
[2020-07-29] MEDS: Morphine 4 MG/ML Syringe IV (00:02)
[2020-07-29 00:14] LABS: Absolute Lymphocyte Count 1.89 X10^3/uL (0.83-4.51); Absolute Neutrophil Count 1.5 X10^3/uL (2.0-7.7); Basophil# 0.03 X10^3/uL; Basophil% 0.7 % (0-1); Eosinophil# 0.07 X10^3/uL; Eosinophils% 1.7 % (0-5); Hematocrit 39.8 % (40-54); Hemoglobin 13.5 g/dL (13.0-16.5); Lymphocyte # 1.89 X10^3/ul (0.83-4.51); Lymphocyte % 46.6 % (19-41); Mean Corp Hgb Conc 33.9 g/dL (32-36); Mean Corpuscular Hgb 34.1 pg (27.0-32.0); Mean Corpuscular Volume 100.5 fL (80-94); Mean Platelet Vol. 10.2 fl (6.2-12.0); Monocyte# 0.53 X10^3/uL; Monocyte% 13.1 % (0-10); NRBC Flagged by Analyzer 0 % (0-5); Neutrophil # 1.53 X10^3/uL (2.7-7.7); Neutrophil % 37.7 % (47-70); POSITIVE COUNT YES; Platelet Count 51 K/mm3 (150-450); RBC Distribution Width CV 15.5 % (11.6-14.6); Red Blood Count 3.96 M/mm3 (4.6-6.2); White Blood Count 4.1 K/mm3 (4.4-11.0)
--- NOTE | 2020-07-29 00:20 | CT_ITS ---
HISTORY: abdominal pain TECHNIQUE: Helically acquired images were obtained of the abdomen and pelvis following the intravenous administration of 100 ML of Isovue-370 Iodinated contrast. 2D reformats. No oral contrast was administered. A radiation dose optimization technique was used for this scan. COMPARISON: July 17, 2020 FINDINGS: # of images incl. paperwork: [id number] LUNG BASES: Clear. CT abdomen: Some degenerative disc disease. Degenerative malalignment at the L4-L5 and L2-L3 levels. Some facet arthropathy. The gallbladder is distended with gallstones and some pericholecystic fluid and hyperenhancing mucosa. This is the same as the previous study. Cirrhosis persists. Large portal systemic shunt through enlarged collateralized vessels around the umbilical ligament extending down to the umbilicus and then with a collateral from likely the inferior epigastric vein to the right external iliac vein. No portal venous thrombus. The spleen, pancreas, and adrenal glands, are normal. The kidneys are normal. The aorta is diseased with atherosclerotic plaque, but without aneurysm.. CT pelvis: Some ascites is present. The appendix is normal. Series 2 image 60. The prostate gland is not enlarged. The bladder is normal. Additional collateral vessels are present within the left inguinal canal with likely varix extending down into the left hemiscrotum from the left gonadal vein. Liquid and gas are present within the rectum and sigmoid colon consistent with a diarrheal state. Fluid is present within many loops of small bowel as well without pathological distention. The volume of ascites on today's study is less than that which was present on the previous studies. Collaterals from the portosystemic shunting is similar. Due to the timing of the contrast bolus the left gonadal venous there are ex and collateral pathway is better demonstrated. CT/Abdomen/Pelvis W IV Cont ONLY IMPRESSION: Cirrhosis with ascites, but less than previously. Gallbladder wall thickening with gallbladder distention and calcified gallstones similar to the previous study. Diarrhea with liquid and gas within the colon but without bowel wall thickening. No abdominal aortic aneurysm or dissection. Individualized dose optimization techniques were used for this CT. at 0044 Reported and signed by: Enio Matute MD Electronically Signed: Enio Matute MD at 0:42 EDT Tel , Service support ,
[2020-07-29 00:27] LABS: ALB/GLOB Ratio 0.7 RATIO (0.9-2.4); AST(SGOT) 90 U/L (15-37); Alanine Aminotransfer ALT/SGPT 47 U/L (16-61); Albumin, Serum 2.9 g/dL (3.2-5.0); Alkaline Phosphatase 123 U/L (45-117); Anion Gap 5 (5-15); BUN 3 mg/dL (7-18); Calcium,Total 8.2 mg/dL (8.5-10.1); Chloride 111 mmol/L (98-107); EST Glomerular Filtration Rate 147 mL/min (>60); Est Glom Filt Rate - Afr Amer 178 mL/min (>60); Estimated Creatinine Clearance 141.19 ml/min; Globulin 4.2 g/dL (2.2-4.2); Glucose 91 mg/dL (74-106); Lipase 179 U/L (73-393); Potassium 3.9 mmol/L (3.5-5.1); Protein, Total 7.1 g/dL (6.4-8.2); Sodium Level 143 mmol/L (136-145)
[2020-07-29 01:29] VITALS: BP 132/83; PULSE 74; RESP 16; O2SAT 96
== END 2020-07-29 01:34 | disposition home or self-care (01) ==
PROVIDERS: Emergency Provider Emergency Medicine; PCP Family Medicine
DX: K80.70 Calculus of gallbladder and bile duct without cholecystitis without obstruction (principal); K74.60 Unspecified cirrhosis of liver; R19.7 Diarrhea, unspecified; R18.8 Other ascites; F17.210 Nicotine dependence, cigarettes, uncomplicated; Z86.79 Personal history of other diseases of the circulatory system; I10 Essential (primary) hypertension; I73.9 Peripheral vascular disease, unspecified
CPT/HCPCS: 74177; 80053; 83690; 85025; 96361; 96374; 96375; 99283; J7030; Q9967; J2405

== ENCOUNTER 2020-08-02 01:15 | Emergency (ER) | payer OTHER, SELFPAY ==
[2020-08-02 01:15] VITALS: BP 166/100; PULSE 120; RESP 16; TEMP 36.4; O2SAT 99; BMI 27.0
--- NOTE | 2020-08-02 01:31 | EX.ED.DYSGE1 ---
HPI History of Present Illness Chief Complaint: Abd Pain Narrative Narrative: Patient stated he has persistent abdominal pain right-sided. He has known gallstones. He was seen here 3 days ago. He has had multiple visits for this. He has a history of alcoholism. He continues to drink alcohol. He has a history of esophageal varices cirrhosis and mild ascites. He was seen by myself recently and discharged home for this. He stated he does not know who supposed to follow-up with. 3 days ago he had a CAT scan that showed gallstones without cholecystitis. He had lab work done as well. The patient is a poor historian. Stated he just has persistent abdominal pain. Was given pain medicine on last visit. [facility] Medical History Aortic aneurysm without rupture Benign essential hypertension Diastolic dysfunction Esophageal varices in alcoholic cirrhosis Liver cirrhosis, alcoholic Peripheral arterial disease Home Medications ferrous sulfate [iron] 325 mg PO DAILY 03/20/18 [History Last Taken 03/11/20] nadolol 40 mg PO DAILY 03/20/18 [History Last Taken 03/11/20] pantoprazole 40 mg PO DAILY 03/20/18 [History Last Taken 03/11/20] thiamine HCl (vitamin B1) [Vitamin B-1] 100 mg PO DAILY 03/20/18 [History Last Taken 03/11/20] spironolactone 12.5 mg PO DAILY 08/20/18 [History Last Taken 03/11/20] lactulose 10 ml PO TID 03/12/20 [History Last Taken 03/11/20] magnesium oxide 400 mg PO DAILYCM 03/12/20 [History Last Taken 03/11/20] potassium chloride 10 meq PO BID 03/12/20 [History Last Taken 03/11/20] tramadol 50 mg PO Q6H PRN PRN 03/12/20 [History Last Taken Unknown] trazodone 100 mg PO QHS 03/12/20 [History Last Taken 03/11/20] multivitamin,lb-evbu-eimgyony 1 tab PO DAILYCM tab 03/13/20 [Rx Last Taken Unknown] ondansetron 4 mg PO Q8H PRN PRN #10 tab 04/27/20 [Rx Last Taken Unknown] promethazine 25 mg PO Q6H PRN PRN #15 tablet 06/29/20 [Rx Last Taken Unknown] tamsulosin 0.4 mg PO DAILY 07/26/20 [History Last Taken Unknown] hydrocodone-acetaminophen 1 tab PO Q6H PRN PRN 3 Days #12 tablet 07/29/20 [Rx Last Taken Unknown] ondansetron 4 mg PO Q6H PRN PRN #10 tab 07/29/20 [Rx Last Taken Unknown] Allergy/AdvReac Type Severity Reaction Status Date / Time No Known Allergies Allergy Verified 07/28/20 23:23 Surgical History History of aortic aneurysm repair Social History household members: none Smoking Status: Current every day smoker tobacco type: cigarettes alcohol intake: current alcohol intake frequency: a few times a week substance use type: does not use ROS ROS ED ROS Narrative ROS General: Denies fever, chills, sweats Eyes: Denies visual changes, blurred vision, double vision ENT: Denies ear pain, rhinorrhea, sore throat Cardiovascular: Denies chest pain, palpitations, heart racing Respiratory: Denies dyspnea, cough, sputum, dyspnea on exertion, orthopnea,PND GI: See HPI : Denies dysuria, hematuria, frequency Musculoskeletal: Denies myalgias, arthralgias, neck pain, back pain Skin: Denies rash, abscess, abrasions Neuro: Denies headache, weakness, paresthesia Psych: Denies depression, anxiety Endo: Denies polyuria, polydipsia, polyphagia Heme: Denies easy bruising, easy bleeding, lymphadenopathy Allergy: Denies hives, swelling EXAM Physical Exam Narrative Exam Narrative: Vital signs reviewed General: Well-nourished well-developed Head: Normocephalic atraumatic Eyes: Pupils equal round and reactive to light extraocular movements intact ENT: TMs clear no hemotympanum no trauma Neck: Nontender full range of motion Cardiovascular: Regular rate rhythm no murmurs normal S1-S2 Respiratory: No distress clear to auscultation bilaterally chest nontender Abdomen: Soft mild tenderness right-sided diffusely without Beatty sign nondistended normal bowel sounds no masses Back: Nontender no CVA tenderness Extremities: Nontender active range of motion ?4 extremities no trauma Skin: Normal color no trauma Neuro alert oriented cranial nerves II through XII intact normal strength sensation reflexes Const Vital Signs: 08/02/20 01:15 Temperature 97.6 F L Temperature Source Temporal Pulse Rate 120 H Respiratory Rate 16 Blood Pressure 166/100 H Blood Pressure Mean 122 Pulse Ox 99 Oxygen Delivery Method Room Air MDM MDM MDM Narrative Medical decision making narrative: IV established and lab work obtained. Given IV fluids. Lab work shows chronic changes including pancytopenia. His white count is 3.4. His hematocrit is 38.6. His platelets are 37,000. Liver function test showed no acute abnormalities. He has chronic elevation in his AST of 75 and alk phos 124 secondary to alcoholism. Encouraged not to drink. Social work was consulted to help him set up an appointment with [place] [facility]. He was referred there 3 days ago. Patient is in agreement we will follow-up as an outpatient. I feel this is biliary colic pain without cholecystitis. Lab Data Labs: Laboratory Results - last 24 hr 08/02/20 08/02/20 01:40 01:40 WBC 3.4 L RBC 3.85 L Hgb 13.0 Hct 38.6 L MCV 100.3 H MCH 33.8 H MCHC 33.7 RDW Std Deviation 57.1 H RDW Coeff of Delilah 15.4 H Plt Count 37 L* MPV 11.1 Immature Gran % (Auto) 0.300 Neut % (Auto) 41.6 L Lymph % (Auto) 38.3 [place] % (Auto) 18.0 H Eos % (Auto) 1.2 Baso % (Auto) 0.6 Absolute Neuts (auto) 1.4 L Absolute Lymphs (auto) 1.30 Nucleated RBC % 0 Sodium 141 Potassium 3.5 Chloride 108 H Carbon Dioxide 27.0 Anion Gap 6 BUN 2 L Creatinine 0.60 L Estim Creat Clear Calc 141.19 Est GFR (MDRD) Af Amer 175 Est GFR (MDRD) Non-Af 145 BUN/Creatinine Ratio 3.3 L Glucose 158 H Calcium 7.9 L Total Bilirubin 1.00 AST 75 H ALT 43 Alkaline Phosphatase 124 H Total Protein 6.7 Albumin 2.8 L Globulin 3.9 Albumin/Globulin Ratio 0.7 L Lipase 368 Discharge Plan Triage Chief Complaint: Abd Pain ED Provider: Rigoberto Wang Dx/Rx/DC Orders Prescriptions: No Action thiamine HCl (vitamin B1) [Vitamin B-1] 100 MG tablet 100 mg PO DAILY RF: 0 nadolol 20 MG tablet 40 mg PO DAILY RF: 0 pantoprazole 40 MG tablet,delayed release (DR/EC) 40 mg PO DAILY RF: 0 ferrous sulfate [iron] 325 MG tablet 325 mg PO DAILY RF: 0 spironolactone 25 MG tablet 12.5 mg PO DAILY RF: 0 tramadol 50 MG tablet 50 mg PO Q6H PRN PRN (Reason: Pain Score 1-10) RF: 0 potassium chloride 10 MEQ tablet extended release 10 meq PO BID RF: 0 magnesium oxide 400 MG tablet 400 mg PO DAILYCM RF: 0 trazodone 100 MG tablet 100 mg PO QHS RF: 0 lactulose 10 GM/15 ML solution 10 ml PO TID RF: 0 multivitamin,uy-tmti-cxywvegd 1 TABLET tablet 1 tab PO DAILYCM RF: 0 ondansetron 4 MG tablet 4 mg PO Q8H PRN PRN (Reason: Nausea) Qty: 10 RF: 0 promethazine [promethazine] 25 MG tablet 25 mg PO Q6H PRN PRN (Reason: Nausea) Qty: 15 RF: 0 tamsulosin 0.4 mg Capsule 0.4 mg PO DAILY RF: 0 hydrocodone-acetaminophen [hydrocodone-acetaminophen] 1 TABLET tablet 1 tab PO Q6H PRN PRN (Reason: Pain) 3 Days Qty: 12 RF: 0 ondansetron [ondansetron] 4 MG tablet 4 mg PO Q6H PRN PRN (Reason: Nausea) Qty: 10 RF: 0 Primary Care Provider: Alice Cuellar
[2020-08-02] MEDS: 0.9% Normal Saline 1,000 ML 125 ML IV (01:42)
[2020-08-02 01:47] LABS: Absolute Neutrophil Count 1.4 X10^3/uL (2.0-7.7); Basophil# 0.02 X10^3/uL; Basophil% 0.6 % (0-1); Eosinophil# 0.04 X10^3/uL; Eosinophils% 1.2 % (0-5); Hematocrit 38.6 % (40-54); Lymphocyte % 38.3 % (19-41); Mean Corp Hgb Conc 33.7 g/dL (32-36); Mean Corpuscular Hgb 33.8 pg (27.0-32.0); Mean Corpuscular Volume 100.3 fL (80-94); Mean Platelet Vol. 11.1 fl (6.2-12.0); Monocyte# 0.61 X10^3/uL; NRBC Flagged by Analyzer 0 % (0-5); Neutrophil # 1.41 X10^3/uL (2.7-7.7); Neutrophil % 41.6 % (47-70); POSITIVE COUNT YES; RBC Distribution Width CV 15.4 % (11.6-14.6); RBC Distribution Width SD 57.1 fl (35.1-43.9); Red Blood Count 3.85 M/mm3 (4.6-6.2); White Blood Count 3.4 K/mm3 (4.4-11.0)
[2020-08-02 02:01] LABS: ALB/GLOB Ratio 0.7 RATIO (0.9-2.4); AST(SGOT) 75 U/L (15-37); Alanine Aminotransfer ALT/SGPT 43 U/L (16-61); Albumin, Serum 2.8 g/dL (3.2-5.0); Alkaline Phosphatase 124 U/L (45-117); Anion Gap 6 (5-15); BUN 2 mg/dL (7-18); BUN/Creat Ratio 3.3 RATIO (10-20); Calcium,Total 7.9 mg/dL (8.5-10.1); Chloride 108 mmol/L (98-107); EST Glomerular Filtration Rate 145 mL/min (>60); Est Glom Filt Rate - Afr Amer 175 mL/min (>60); Estimated Creatinine Clearance 141.19 ml/min; Globulin 3.9 g/dL (2.2-4.2); Glucose 158 mg/dL (74-106); Lipase 368 U/L (73-393); Potassium 3.5 mmol/L (3.5-5.1); Protein, Total 6.7 g/dL (6.4-8.2); Sodium Level 141 mmol/L (136-145)
[2020-08-02 02:08] LABS: Differential Indicated SCAN CRITERIA MET; Platelet Count 37 K/mm3 (150-450)
[2020-08-02 02:20] LABS: Platelet Estimate MKD DEC (ADEQ)
[2020-08-02 02:25] VITALS: BP 122/80; PULSE 99; RESP 16; O2SAT 96
[2020-08-02 13:05] LABS: Pathologist Review Reviewed
--- NOTE | 2020-08-02 17:58 | CM.ED ---
[facility] Note SW followed up with patient per request from Dr. Wang. SW called patient. He said that he just started getting up and moving today and indicated it had been a rough night. Patient said that his plan is to follow up with his PCP, [place] and reports that he has number for [facility] as it was on his paperwork at discharge from hospital. Patient reports no further needs or concerns. He stated you have been helpful. Plan: Patient will follow up with PCP and [facility]. Mary KERN
== END 2020-08-02 02:25 | disposition home or self-care (01) ==
PROVIDERS: Emergency Provider Emergency Medicine; PCP Family Medicine
DX: R10.9 Unspecified abdominal pain (principal); F17.210 Nicotine dependence, cigarettes, uncomplicated; I73.9 Peripheral vascular disease, unspecified; I10 Essential (primary) hypertension; F10.20 Alcohol dependence, uncomplicated; Y90.9 Presence of alcohol in blood, level not specified; Z86.79 Personal history of other diseases of the circulatory system
CPT/HCPCS: 80053; 83690; 85025; 96360; 99285; J7030

== ENCOUNTER 2020-08-27 23:55 | Emergency (ER) | payer OTHER, SELFPAY ==
[2020-08-27 23:56] VITALS: BP 151/85; PULSE 126; RESP 18; TEMP 36.8; O2SAT 95; BMI 28.5
--- NOTE | 2020-08-28 00:02 | EX.ED.DYSGE1 ---
HPI History of Present Illness Chief Complaint: Abd Pain Informant: patient Onset/Context/Timing Onset: Today Context: Gradual Onset Current Severity: Moderate Maximum Severity: Moderate Narrative Narrative: Patient is a 59-year-old male medical history significant for alcohol abuse, pancytopenia, and cholelithiasis who presents to the emergency department with gallbladder pain. Patient states has been battling this intermittently for months. He has seen surgery at [facility] and at [facility]. He was told that he was too high risk for surgical fixation. He has not followed up in over a month. He states pain started today. He states this is his normal gallbladder pain. He denies vomiting. He denies change in stool or rectal bleeding. He is still continuing to drink. Prior similar symptoms: Yes Recent Illness/Hospitalization: No [facility] Medical History Aortic aneurysm without rupture Benign essential hypertension Diastolic dysfunction Esophageal varices in alcoholic cirrhosis Liver cirrhosis, alcoholic Peripheral arterial disease Home Medications ferrous sulfate [iron] 325 mg PO DAILY 03/20/18 [History Last Taken 03/11/20] nadolol 40 mg PO DAILY 03/20/18 [History Last Taken 03/11/20] pantoprazole 40 mg PO DAILY 03/20/18 [History Last Taken 03/11/20] thiamine HCl (vitamin B1) [Vitamin B-1] 100 mg PO DAILY 03/20/18 [History Last Taken 03/11/20] spironolactone 12.5 mg PO DAILY 08/20/18 [History Last Taken 03/11/20] lactulose 10 ml PO TID 03/12/20 [History Last Taken 03/11/20] magnesium oxide 400 mg PO DAILYCM 03/12/20 [History Last Taken 03/11/20] potassium chloride 10 meq PO BID 03/12/20 [History Last Taken 03/11/20] tramadol 50 mg PO Q6H PRN PRN 03/12/20 [History Last Taken Unknown] trazodone 100 mg PO QHS 03/12/20 [History Last Taken 03/11/20] multivitamin,ow-cpye-ggrnbhhh 1 tab PO DAILYCM tab 03/13/20 [Rx Last Taken Unknown] ondansetron 4 mg PO Q8H PRN PRN #10 tab 04/27/20 [Rx Last Taken Unknown] promethazine 25 mg PO Q6H PRN PRN #15 tablet 06/29/20 [Rx Last Taken Unknown] tamsulosin 0.4 mg PO DAILY 07/26/20 [History Last Taken Unknown] Allergy/AdvReac Type Severity Reaction Status Date / Time No Known Allergies Allergy Verified 08/27/20 23:58 Surgical History History of aortic aneurysm repair Social History household members: none Smoking Status: Current every day smoker tobacco type: cigarettes alcohol intake: current alcohol intake frequency: a few times a week substance use type: does not use ROS ROS ED Constitutional Constitutional ED: Denies chills or fever(s) Eyes Eyes: Denies blurry vision or change in vision ENT ENT ED: Denies ear pain or sore throat Cardiovascular Cardiovascular: Denies chest pain or palpitations Respiratory/Chest Respiratory/Chest: Denies cough, dyspnea or dyspnea on exertion Gastrointestinal Gastrointestinal: Reports abdominal pain and nausea; Denies vomiting Genitourinary Genitourinary ED: Denies dysuria or urinary frequency Musculoskeletal Musculoskeletal: Denies arthralgias or myalgias Integumentary Denies rash Neurologic Neurologic: Denies headache(s) or paresthesias Psychiatric Psychiatric: Denies anxiety or depression Endocrine Endocrinology: Denies polydipsia or polyuria Allergic/Immunologic Allergic/Immunologic ED: Denies urticaria EXAM Physical Exam Const Vital Signs: 08/27/20 23:56 Temperature 98.2 F Temperature Source Oral Pulse Rate 126 H Respiratory Rate 18 Blood Pressure 151/85 H Blood Pressure Mean 107 Pulse Ox 95 Oxygen Delivery Method Room Air Positive well nourished and well developed General Appearance ED: well developed HEENT Reports normocephalic, head/scalp atraumatic and moist mucous membranes Eyes PERRL and EOMs intact bilaterally Neck no lymphadenopathy and supple General: Negative for tenderness Chest Wall inspection of chest normal Resp normal respiratory effort and clear to auscultation bilaterally Cardio regular rate, regular rhythm and no murmurs GI normal to inspection, nondistended, normoactive bowel sounds Palpation: tender; Negative for guarding or rebound tenderness present Back/Spine no CVA tenderness Cervical Spine: Negative for cervical spine tenderness Thoracic Spine / Upper Back: Negative for thoracic spinal tenderness Extremity normal to inspection General Extremety ED: Negative for tenderness Neuro oriented x3 and CN's II-XII intact bilaterally Neuro Narrative: No focal deficits appreciated. Sensorium / Orientation: alert Psych mental status grossly normal Skin no rashes or lesions noted, no wounds and skin turgor normal MDM MDM MDM Narrative Medical decision making narrative: Patient presents with biliary colic. He has mild tenderness in the right upper quadrant, but when distracted has no tenderness. He had no vomiting. He said no change in bowel habits. Metabolic work-up was pursued. The patient is thrombocytopenic which is chronic. However, his hemoglobin is stable. Liver functions are at his baseline. I do not feel that he needs reimaged. His pain is now controlled. I did mental health counselor him importance of following up with the surgeon. He will be discharged home. Impression 1. Biliary colic Lab Data Attestation: I reviewed the patient's lab results. Labs: Laboratory Results - last 24 hr 08/28/20 08/28/20 00:05 00:05 WBC 3.1 L RBC 3.89 L Hgb 13.1 Hct 38.7 L MCV 99.5 H MCH 33.7 H MCHC 33.9 RDW Std Deviation 55.7 H RDW Coeff of Delilah 15.2 H Plt Count 41 L* MPV 10.8 Immature Gran % (Auto) 0.300 Neut % (Auto) 39.7 L Lymph % (Auto) 40.8 [place] % (Auto) 18.6 H Eos % (Auto) 0.3 Baso % (Auto) 0.3 Absolute Neuts (auto) 1.2 L Absolute Lymphs (auto) 1.25 Nucleated RBC % 0 Diff Path Review May foll Sodium 139 Potassium 3.8 Chloride 104 Carbon Dioxide 27.0 Anion Gap 8 BUN 3 L Creatinine 0.64 L Estim Creat Clear Calc 132.36 Est GFR (MDRD) Af Amer 165 Est GFR (MDRD) Non-Af 137 BUN/Creatinine Ratio 4.7 L Glucose 151 H Calcium 7.6 L Total Bilirubin 1.50 H AST 102 H ALT 42 Alkaline Phosphatase 126 H Total Protein 6.5 Albumin 2.7 L Globulin 3.8 Albumin/Globulin Ratio 0.7 L Lipase 225 Discharge Plan Triage Chief Complaint: Abd Pain ED Provider: Herve Streeter Dx/Rx/DC Orders Instructions: ED Gallstones with Biliary Colic Prescriptions: No Action thiamine HCl (vitamin B1) [Vitamin B-1] 100 MG tablet 100 mg PO DAILY RF: 0 nadolol 20 MG tablet 40 mg PO DAILY RF: 0 pantoprazole 40 MG tablet,delayed release (DR/EC) 40 mg PO DAILY RF: 0 ferrous sulfate [iron] 325 MG tablet 325 mg PO DAILY RF: 0 spironolactone 25 MG tablet 12.5 mg PO DAILY RF: 0 tramadol 50 MG tablet 50 mg PO Q6H PRN PRN (Reason: Pain Score 1-10) RF: 0 potassium chloride 10 MEQ tablet extended release 10 meq PO BID RF: 0 magnesium oxide 400 MG tablet 400 mg PO DAILYCM RF: 0 trazodone 100 MG tablet 100 mg PO QHS RF: 0 lactulose 10 GM/15 ML solution 10 ml PO TID RF: 0 multivitamin,lm-wwaw-ynkxvjfh 1 TABLET tablet 1 tab PO DAILYCM RF: 0 ondansetron 4 MG tablet 4 mg PO Q8H PRN PRN (Reason: Nausea) Qty: 10 RF: 0 promethazine [promethazine] 25 MG tablet 25 mg PO Q6H PRN PRN (Reason: Nausea) Qty: 15 RF: 0 tamsulosin 0.4 mg Capsule 0.4 mg PO DAILY RF: 0 Primary Care Provider: Alice Cuellar Referrals: Alice Cuellar DO [Primary Care Provider] -
[2020-08-28 00:12] LABS: Absolute Lymphocyte Count 1.25 X10^3/uL (0.83-4.51); Absolute Neutrophil Count 1.2 X10^3/uL (2.0-7.7); Basophil# 0.01 X10^3/uL; Basophil% 0.3 % (0-1); Eosinophil# 0.01 X10^3/uL; Eosinophils% 0.3 % (0-5); Hematocrit 38.7 % (40-54); Hemoglobin 13.1 g/dL (13.0-16.5); Lymphocyte # 1.25 X10^3/ul (0.83-4.51); Lymphocyte % 40.8 % (19-41); Mean Corp Hgb Conc 33.9 g/dL (32-36); Mean Corpuscular Hgb 33.7 pg (27.0-32.0); Mean Corpuscular Volume 99.5 fL (80-94); Mean Platelet Vol. 10.8 fl (6.2-12.0); Monocyte# 0.57 X10^3/uL; Monocyte% 18.6 % (0-10); NRBC Flagged by Analyzer 0 % (0-5); Neutrophil # 1.21 X10^3/uL (2.7-7.7); Neutrophil % 39.7 % (47-70); POSITIVE COUNT YES; RBC Distribution Width CV 15.2 % (11.6-14.6); RBC Distribution Width SD 55.7 fl (35.1-43.9); Red Blood Count 3.89 M/mm3 (4.6-6.2); White Blood Count 3.1 K/mm3 (4.4-11.0)
[2020-08-28 00:14] LABS: Differential Indicated SCAN CRITERIA MET; Platelet Count 41 K/mm3 (150-450)
[2020-08-28] MEDS: Ondansetron 4 MG/2 ML Vial IV (00:17)
[2020-08-28] MEDS: HYDROmorphone 1 MG/ML Syringe IV (00:17)
[2020-08-28 00:27] LABS: ALB/GLOB Ratio 0.7 RATIO (0.9-2.4); AST(SGOT) 102 U/L (15-37); Alanine Aminotransfer ALT/SGPT 42 U/L (16-61); Albumin, Serum 2.7 g/dL (3.2-5.0); Alkaline Phosphatase 126 U/L (45-117); Anion Gap 8 (5-15); BUN 3 mg/dL (7-18); BUN/Creat Ratio 4.7 RATIO (10-20); Calcium,Total 7.6 mg/dL (8.5-10.1); Chloride 104 mmol/L (98-107); Creatinine, Serum 0.64 mg/dL (0.70-1.30); EST Glomerular Filtration Rate 137 mL/min (>60); Est Glom Filt Rate - Afr Amer 165 mL/min (>60); Estimated Creatinine Clearance 132.36 ml/min; Globulin 3.8 g/dL (2.2-4.2); Glucose 151 mg/dL (74-106); Lipase 225 U/L (73-393); Potassium 3.8 mmol/L (3.5-5.1); Protein, Total 6.5 g/dL (6.4-8.2); Sodium Level 139 mmol/L (136-145)
[2020-08-28 01:02] VITALS: BP 110/69; PULSE 90
[2020-08-28 12:50] LABS: Pathologist Review Reviewed
== END 2020-08-28 01:20 | disposition home or self-care (01) ==
LOC: ED 08-28 00:53
PROVIDERS: Emergency Provider Emergency Medicine; PCP Family Medicine
DX: K80.50 Calculus of bile duct without cholangitis or cholecystitis without obstruction (principal); F17.210 Nicotine dependence, cigarettes, uncomplicated; Z86.79 Personal history of other diseases of the circulatory system; I10 Essential (primary) hypertension; I73.9 Peripheral vascular disease, unspecified
CPT/HCPCS: 80053; 83690; 85025; 96374; 96375; 99284; A4216; J2405

== ENCOUNTER 2020-09-08 06:45 | Observation (INO) | payer OTHER, SELFPAY ==
[2020-09-08] VITALS (7 sets, daily range): BP systolic 103–130; BP diastolic 50–84; PULSE 71–78; RESP 16–18; TEMP 36.4–37.7; O2SAT 92–100; BMI 27.2; BMI 26.9
--- NOTE | 2020-09-08 07:05 | EKG12_ITS ---
Test Reason : Blood Pressure : / mmHG Vent. Rate : 072 BPM Atrial Rate : 072 BPM P-R Int : 168 ms QRS Dur : 098 ms QT Int : 468 ms P-R-T Axes : 061 057 057 degrees QTc Int : 512 ms Normal sinus rhythm Prolonged QT Abnormal ECG Confirmed by AMANDA DAN, DEYANIRA ([id number]), primer expeditor and drier ANNABELLA TRIANA ([id number]) on 09/12/2020 8:55:30 AM Referred By: BAILEY Confirmed By:DEYANIRA PATEL MD
--- NOTE | 2020-09-08 07:05 | CT_ITS ---
STUDY: CT ABDOMEN AND PELVIS WITHOUT CONTRAST REASON FOR EXAM: Male, 59 years old. Pain RADIATION DOSAGE (If Supplied By Facility): CTDIvol = ( 10.28 ) mGy, DLP = ( 593.07 ) mGycm TECHNIQUE: Transaxial images were obtained from the dome of the diaphragm to the symphysis pubis without oral contrast, and without intravenous contrast. Sagittal and coronal images were reconstructed. Individualized dose optimization techniques were used for this CT. COMPARISON: 07/29/2020 FINDINGS: The visualized lung bases are unremarkable. The visualized portions of the heart are within normal limits. There is a diffuse contour abnormality of the liver consistent with cirrhotic changes. Small amount of ascites. There are multiple gallstones. There is moderate splenomegaly. Normal pancreas. Normal bilateral adrenal glands. Normal right kidney. Normal left kidney. Normal visualized stomach. Normal small intestine. Normal colon. The appendix is visualized and appears normal. There is diffuse atherosclerotic calcification of the abdominal aorta, without a demonstrated aneurysm. Normal inferior vena cava. Normal retroperitoneum. Normal urinary bladder. Normal abdominal wall. Normal osseous structures. CT/Abdomen/Pelvis without Cont IMPRESSION: 1. Cirrhosis with the moderate splenomegaly and a small amount of ascites. 2. Cholelithiasis. 3. No other acute abnormality. Electronically Signed: Frankie Lopez MD at 8:19 EDT Tel , Service support ,
--- NOTE | 2020-09-08 07:12 | EX.ED.DYSGE1 ---
HPI History of Present Illness Chief Complaint: Nausea/Vomiting Detail of Chief Complaint: Vomiting and abdominal pain that started 3 AM Informant: patient Onset/Context/Timing Onset: Today Current Severity: Severe Narrative Narrative: Patient presents to the emergency department complaint of abdominal pain and vomiting that is recurrent. Patient has had multiple visits to this department for this. Patient has history of biliary colic. Patient has had prior evaluation in [place] for this and was told he was too high risk for surgery. Patient has history of alcoholism and continues to drink. He states his abdominal pain is diffuse and severe. He denies any hematemesis or black tarry stools. He denies fevers. He does describe loose stools but states that he is on lactulose due to history of liver disease. Patient has had prior AAA repair. Prior similar symptoms: Yes [facility] Medical History Aortic aneurysm without rupture Benign essential hypertension Diastolic dysfunction Esophageal varices in alcoholic cirrhosis Liver cirrhosis, alcoholic Peripheral arterial disease Home Medications ferrous sulfate [iron] 325 mg PO DAILY 03/20/18 [History Last Taken 03/11/20] nadolol 40 mg PO DAILY 03/20/18 [History Last Taken 03/11/20] pantoprazole 40 mg PO DAILY 03/20/18 [History Last Taken 03/11/20] spironolactone 12.5 mg PO DAILY 08/20/18 [History Last Taken 03/11/20] lactulose 10 ml PO TID 03/12/20 [History Last Taken 03/11/20] magnesium oxide 400 mg PO DAILYCM 03/12/20 [History Last Taken 03/11/20] potassium chloride 10 meq PO BID 03/12/20 [History Last Taken 03/11/20] tramadol 50 mg PO Q6H PRN PRN 03/12/20 [History Last Taken Unknown] trazodone 100 mg PO QHS 03/12/20 [History Last Taken 03/11/20] multivitamin,gl-acuv-tfxtdfdi 1 tab PO DAILYCM tab 03/13/20 [Rx Last Taken Unknown] ondansetron 4 mg PO Q8H PRN PRN #10 tab 04/27/20 [Rx Last Taken Unknown] tamsulosin 0.4 mg PO DAILY 07/26/20 [History Last Taken Unknown] Allergy/AdvReac Type Severity Reaction Status Date / Time No Known Allergies Allergy Verified 09/08/20 06:48 Family History (Updated 09/08/20 @ 09:[address] Rigoberto Jose MD) Mother Cancer Father Lupus Surgical History History of aortic aneurysm repair Social History household members: none Smoking Status: Current every day smoker tobacco type: cigarettes alcohol intake: current alcohol intake frequency: a few times a week substance use type: does not use ROS ROS ED Constitutional Constitutional ED: Reports systems reviewed and no addt'l complaints, except as documented; Denies body ache(s), change in weight or chills Eyes Eyes: Denies acute decrease in peripheral vision, change in vision, double vision or loss of vision ENT ENT ED: Reports none; Denies ear pain, lip swelling, loss taste/smell, neck pain, otalgia or sore throat Cardiovascular Cardiovascular: Reports none; Denies abdominal pain, chest pain with activity, leg edema, lightheadedness, palpitations, rapid heart rate or syncope Respiratory/Chest Respiratory/Chest: Reports none; Denies change in mental status, dry cough, dyspnea, hemoptysis, shortness of breath at rest or shortness of breath with exertion Gastrointestinal Gastrointestinal: Reports none, abdominal pain, nausea and vomiting; Denies change in stool character, diarrhea, hematemesis, hematochezia, melena or rectal bleeding Genitourinary Genitourinary ED: Reports none; Denies abdominal discomfort, anuria, dysuria, genital pain or polyuria Musculoskeletal Musculoskeletal: Reports none; Denies arthralgias, back pain, difficulty walking, extremity pain, muscle weakness or myalgias Integumentary Reports none; Denies abscess or rash Neurologic Neurologic: Reports none; Denies abnormal gait, confusion, focal weakness, frequent falls, headache(s), loss of vision, numbness, paresthesias, radicular pain, vertigo or weakness Psychiatric Psychiatric: Reports systems reviewed and no addt'l complaints, except as documented and none; Denies behavioral changes, confusion, difficulty concentrating, hallucinations, suicidal ideation, tactile hallucinations or visual hallucinations Endocrine Endocrinology: Denies none, cold intolerance, excessive sweating, fatigue or heat intolerance Hematologic/Lymphatic Hematologic/Lymphatic: Reports none; Denies anemia, easy bleeding or easy bruising Allergic/Immunologic Allergic/Immunologic ED: Denies as per HPI, none, lip swelling, mouth swelling, throat swelling, tongue swelling or hives EXAM Physical Exam Const Vital Signs: 09/08/20 06:46 Temperature 97.5 F L Temperature Source Temporal Pulse Rate 71 Respiratory Rate 16 Blood Pressure 130/84 H Blood Pressure Mean 99 Pulse Ox 100 Oxygen Delivery Method Room Air Positive well nourished and well developed General Appearance ED: well developed and NAD HEENT Reports TM's clear and moist mucous membranes normocephalic and atraumatic; Negative for trauma or tenderness Tympanic Membrane ED: Yes TM's clear Eyes PERRL and EOMs intact bilaterally General Eye ED: Negative for pale conjunctiva or scleral icterus Neck no lymphadenopathy, supple and no JVD General: Negative for tenderness Chest Wall inspection of chest normal and palpation of chest normal Chest: Negative for tenderness Resp normal respiratory effort and clear to auscultation bilaterally Effort and Inspection: Negative for respiratory distress or pain with movement Auscultation: Negative for rhonchi, wheezes or diminished lung sounds Cardio regular rate, regular rhythm, S1 normal heart sound, S2 normal heart sound and no murmurs Peripheral Pulses: pulses 2+ throughout GI soft to palpation, non-distended and no masses GI Narrative: Patient has diffuse tenderness on exam. There is no rebound, rigidity, or perineal signs. Palpation: soft and tender Back/Spine no CVA tenderness and no thoracic nor lumbar tenderness Extremity normal to inspection General Extremety ED: Negative for edema General Extremity: Negative for edema Neuro oriented x3, CN's II-XII intact bilaterally, no sensory deficits noted and gait normal Sensorium / Orientation: awake, alert, oriented to person, oriented to place and oriented to time Motor Exam: strength 5/5 throughout and strength abnormal Psych mental status grossly normal Skin no rashes or lesions noted and no wounds MDM MDM MDM Narrative Medical decision making narrative: Patient's lab work-up essentially stable from prior visits. He has slight elevation in LFTs which are chronic. He does have a slight elevation in his lactate of 2.7. Patient was medicated with Zofran and morphine and he continues to complain of nausea and abdominal pain. CT scan also of the abdomen pelvis obtained was stable and showed gallstones and small amount of ascites. Case discussed with hospitalist will evaluate patient for admission. Patient started on Protonix IV. Lab Data Attestation: I reviewed the patient's lab results. Labs: Laboratory Results - last 24 hr 09/08/20 09/08/20 09/08/20 06:42 06:42 07:11 WBC 3.2 L RBC 3.56 L Hgb 12.2 L Hct 35.0 L MCV 98.3 H MCH 34.3 H MCHC 34.9 RDW Std Deviation 53.2 H RDW Coeff of Delilah 14.6 Plt Count 34 L* MPV 11.1 Immature Gran % (Auto) 0.300 Neut % (Auto) 47.6 Lymph % (Auto) 30.0 [place] % (Auto) 20.6 H Eos % (Auto) 0.9 Baso % (Auto) 0.6 Absolute Neuts (auto) 1.5 L Absolute Lymphs (auto) 0.96 Nucleated RBC % 0 Differential Comment SCANNED Diff Path Review May foll Platelet Estimate MKD DEC Plt Morphology Comment LARGE Sodium 136 Potassium 3.4 L Chloride 102 Carbon Dioxide 26.0 Anion Gap 8 BUN 2 L Creatinine 0.61 L Estim Creat Clear Calc 138.87 Est GFR (MDRD) Af Amer 172 Est GFR (MDRD) Non-Af 142 BUN/Creatinine Ratio 3.3 L Glucose 120 H Lactic Acid 2.7 H* Calcium 7.6 L Total Bilirubin 1.90 H AST 104 H ALT 56 Alkaline Phosphatase 130 H Troponin I High Sens 8.1 Total Protein 6.5 Albumin 2.6 L Globulin 3.9 Albumin/Globulin Ratio 0.7 L Lipase 238 Urine Color Urine Clarity Urine pH Ur Specific [place] Urine Protein Urine Glucose (UA) Urine Ketones Urine Occult Blood Urine Nitrite Urine Bilirubin Urine Urobilinogen Ur Leukocyte Esterase Urine RBC Urine WBC Ur Squamous Epith Cells Urine Bacteria Urine Mucus Ethyl Alcohol 09/08/20 09/08/20 07:20 08:15 WBC RBC Hgb Hct MCV MCH MCHC RDW Std Deviation RDW Coeff of Delilah Plt Count MPV Immature Gran % (Auto) Neut % (Auto) Lymph % (Auto) [place] % (Auto) Eos % (Auto) Baso % (Auto) Absolute Neuts (auto) Absolute Lymphs (auto) Nucleated RBC % Differential Comment Diff Path Review Platelet Estimate Plt Morphology Comment Sodium Potassium Chloride Carbon Dioxide Anion Gap BUN Creatinine Estim Creat Clear Calc Est GFR (MDRD) Af Amer Est GFR (MDRD) Non-Af BUN/Creatinine Ratio Glucose Lactic Acid Calcium Total Bilirubin AST ALT Alkaline Phosphatase Troponin I High Sens Total Protein Albumin Globulin Albumin/Globulin Ratio Lipase Urine Color Yellow Urine Clarity Clear Urine pH 6.0 Ur Specific [place] 1.010 Urine Protein Negative Urine Glucose (UA) Normal Urine Ketones Negative Urine Occult Blood Negative Urine Nitrite Negative Urine Bilirubin Negative Urine Urobilinogen 8 H Ur Leukocyte Esterase 100 H Urine RBC 0 SEEN Urine WBC 0-5 SEEN Ur Squamous Epith Cells 0-5 SEEN Urine Bacteria 1+ Urine Mucus 0 SEEN Ethyl Alcohol 96.0 Radiography Diagnostic Testing: Radiology Impression Abdomen/Pelvis CT 09/08/20 07:05 IMPRESSION: 1. Cirrhosis with the moderate splenomegaly and a small amount of ascites. 2. Cholelithiasis. 3. No other acute abnormality. Electronically Signed: Frankie Lopez MD at 8:19 EDT Tel , Service support , EKG Initial EKG: Attestation: I personally reviewed and interpreted this EKG as follows: Comments: Sinus rhythm with a ventricular rate of 72 bpm with no acute ST segment changes Discharge Plan Dx/Rx/DC Orders Clinical Impression: Abdominal pain, Intractable nausea and vomiting, Alcohol intoxication in active alcoholic Disposition Disposition: Acute Care [facility]
[2020-09-08 07:15] LABS: Absolute Lymphocyte Count 0.96 X10^3/uL (0.83-4.51); Absolute Neutrophil Count 1.5 X10^3/uL (2.0-7.7); Basophil# 0.02 X10^3/uL; Basophil% 0.6 % (0-1); Eosinophil# 0.03 X10^3/uL; Eosinophils% 0.9 % (0-5); Hemoglobin 12.2 g/dL (13.0-16.5); Lymphocyte # 0.96 X10^3/ul (0.83-4.51); Mean Corp Hgb Conc 34.9 g/dL (32-36); Mean Corpuscular Hgb 34.3 pg (27.0-32.0); Mean Corpuscular Volume 98.3 fL (80-94); Mean Platelet Vol. 11.1 fl (6.2-12.0); Monocyte# 0.66 X10^3/uL; Monocyte% 20.6 % (0-10); NRBC Flagged by Analyzer 0 % (0-5); Neutrophil # 1.52 X10^3/uL (2.7-7.7); Neutrophil % 47.6 % (47-70); POSITIVE COUNT YES; RBC Distribution Width CV 14.6 % (11.6-14.6); RBC Distribution Width SD 53.2 fl (35.1-43.9); Red Blood Count 3.56 M/mm3 (4.6-6.2); White Blood Count 3.2 K/mm3 (4.4-11.0)
[2020-09-08] MEDS: 0.9% Normal Saline 1,000 ML 125 ML IV (07:26)
[2020-09-08] MEDS: Ondansetron 4 MG/2 ML Vial IV ×2 (07:26→16:51)
[2020-09-08] MEDS: Morphine 4 MG/ML Syringe IV (07:26)
[2020-09-08 07:30] LABS: ALB/GLOB Ratio 0.7 RATIO (0.9-2.4); AST(SGOT) 104 U/L (15-37); Alanine Aminotransfer ALT/SGPT 56 U/L (16-61); Albumin, Serum 2.6 g/dL (3.2-5.0); Alkaline Phosphatase 130 U/L (45-117); Anion Gap 8 (5-15); BUN 2 mg/dL (7-18); BUN/Creat Ratio 3.3 RATIO (10-20); Calcium,Total 7.6 mg/dL (8.5-10.1); Chloride 102 mmol/L (98-107); Creatinine, Serum 0.61 mg/dL (0.70-1.30); EST Glomerular Filtration Rate 142 mL/min (>60); Est Glom Filt Rate - Afr Amer 172 mL/min (>60); Estimated Creatinine Clearance 138.87 ml/min; Globulin 3.9 g/dL (2.2-4.2); Glucose 120 mg/dL (74-106); Lipase 238 U/L (73-393); Potassium 3.4 mmol/L (3.5-5.1); Protein, Total 6.5 g/dL (6.4-8.2); Sodium Level 136 mmol/L (136-145); Troponin-I HS 8.1 pg/mL (3.0-78.5)
[2020-09-08 07:34] LABS: Differential Indicated SCAN CRITERIA MET; Platelet Count 34 K/mm3 (150-450)
[2020-09-08 07:42] LABS: Mucous, Urine 0 SEEN /hpf (<or=2+); Red Blood Cells-Urine 0 SEEN /hpf (0-5)
[2020-09-08 08:05] LABS: Lactic Acid 2.7 mmol/L (0.4-1.9)
[2020-09-08 08:08] LABS: Color, Urine Yellow (Yellow); Glucose, Dipstick Normal (Normal); Ketone-Dipstick Negative (Negative); Leukocyte Esterase-Dipstick 100 /ul (Negative); Nitrite-Dipstick Negative (Negative); Occult Blood-Urine Negative /ul (Negative); Protein-Dipstick Negative (Negative); Urine Bilirubin Dipstick Negative (Negative); Urine Clarity Clear (Clear); Urine Urobilinogen 8 mg/dl (Normal)
[2020-09-08 08:21] LABS: Bacteria 1+ /hpf (None Seen); Squamous Epithelial Cells - UA 0-5 SEEN /hpf (0-5); White Blood Cells 0-5 SEEN /hpf (0-5)
[2020-09-08 08:30] LABS: Differential Comment SCANNED; Platelet Estimate MKD DEC (ADEQ); Platelet Morphology LARGE
--- NOTE | 2020-09-08 09:41 | PCM.HP.STD ---
HPI - General General Date of Admission: 09/08/20 HPI Narrative JB ALARCON, is a 59 M who presents to the hospital with intractable nausea and vomiting as well as abdominal pain. He has had this issue several times in the past. He has a history of cirrhosis likely secondary to alcoholism with thrombocytopenia. He also has a history of gallstones however he is too high risk for surgery even at tertiary care center. He continues to drink despite understanding that it is adversely affecting his life. This current episode started few days ago however the pain got more severe this morning which is why he presented to the hospital. In the ER he was found to be thrombocytopenic which is a chronic issue for him. He did have a leukocytosis and his renal function was normal. His blood alcohol was elevated and it does not appear that he wants to discontinue drinking. Lactate was slightly elevated as well to 2.7 however he has no other signs of sepsis. PFSH Medical History Aortic aneurysm without rupture Benign essential hypertension Chronic pain Diastolic dysfunction Esophageal varices in alcoholic cirrhosis Liver cirrhosis, alcoholic Peripheral arterial disease Smoker Home Medications ferrous sulfate [iron] 325 mg PO DAILY 03/20/18 [History Last Taken 03/11/20] nadolol 40 mg PO DAILY 03/20/18 [History Last Taken 03/11/20] pantoprazole 40 mg PO DAILY 03/20/18 [History Last Taken 03/11/20] spironolactone 12.5 mg PO DAILY 08/20/18 [History Last Taken 03/11/20] lactulose 10 ml PO TID 03/12/20 [History Last Taken 03/11/20] magnesium oxide 400 mg PO DAILYCM 03/12/20 [History Last Taken 03/11/20] potassium chloride 10 meq PO BID 03/12/20 [History Last Taken 03/11/20] tramadol 50 mg PO Q6H PRN PRN 03/12/20 [History Last Taken Unknown] trazodone 100 mg PO QHS 03/12/20 [History Last Taken 03/11/20] multivitamin,qv-oycu-eojksend 1 tab PO DAILYCM tab 03/13/20 [Rx Last Taken Unknown] ondansetron 4 mg PO Q8H PRN PRN #10 tab 04/27/20 [Rx Last Taken Unknown] tamsulosin 0.4 mg PO DAILY 07/26/20 [History Last Taken Unknown] Allergy/AdvReac Type Severity Reaction Status Date / Time No Known Allergies Allergy Verified 09/08/20 06:48 Family History Mother Cancer Father Lupus Surgical History History of aortic aneurysm repair Social History household members: none Smoking Status: Current every day smoker tobacco type: cigarettes alcohol intake: current alcohol intake frequency: a few times a week substance use type: does not use ROS Constitutional Constitutional: Denies chills, fatigue, fever(s) or malaise Eyes Eyes: Denies blurry vision ENT HEENT: Denies headache(s) or nasal discharge Cardiovascular Cardiovascular: Denies chest pain, dyspnea on exertion or syncope Respiratory/Chest Respiratory/Chest: Denies cough, shortness of breath at rest or shortness of breath with exertion Gastrointestinal Gastrointestinal: Reports abdominal pain, nausea and vomiting; Denies constipation or diarrhea Genitourinary Genitourinary: Denies dysuria Neurologic Neurologic: Denies focal weakness, numbness or tremor(s) Psychiatric Psychiatric: Denies anxiety or depression Vital Signs Vital Signs Vital Signs: 09/08/20 06:46 Temperature 97.5 F L Temperature Source Temporal Pulse Rate 71 Respiratory Rate 16 Blood Pressure 130/84 H Blood Pressure Mean 99 Pulse Ox 100 Oxygen Delivery Method Room Air Weight Weight: 195 lb 8.8 oz Body Mass Index (BMI) 27.2 Physical Exam Const alert, oriented x3 and no apparent distress General Appearance: cooperative HEENT normocephalic Mouth: dry mucous membranes Eyes PERRL, EOMs intact bilaterally and conjunctivae normal Neck supple and no JVD Resp normal respiratory effort, no retractions, no use of accessory muscles and clear to auscultation bilaterally Auscultation: Negative for crackles, rales, rhonchi or wheezes Cardio regular rate, regular rhythm, S1 normal heart sound, S2 normal heart sound and no murmurs GI soft to palpation and non-distended; Negative for hepatosplenomegaly Palpation: tender other Extremity no clubbing, cyanosis or edema Skin no rashes or lesions noted Neuro no focal motor deficits and no sensory deficits noted Psych affect normal Appearance: appropriate Results Lab / Micro Data Result Diagrams: 09/09/20 05:35 09/09/20 05:35 Labs: Laboratory Results - last 24 hr 09/08/20 09/08/20 09/08/20 06:42 06:42 07:11 WBC 3.2 L RBC 3.56 L Hgb 12.2 L Hct 35.0 L MCV 98.3 H MCH 34.3 H MCHC 34.9 RDW Std Deviation 53.2 H RDW Coeff of Delilah 14.6 Plt Count 34 L* MPV 11.1 Immature Gran % (Auto) 0.300 Neut % (Auto) 47.6 Lymph % (Auto) 30.0 [place] % (Auto) 20.6 H Eos % (Auto) 0.9 Baso % (Auto) 0.6 Absolute Neuts (auto) 1.5 L Absolute Lymphs (auto) 0.96 Nucleated RBC % 0 Differential Comment SCANNED Diff Path Review May foll Platelet Estimate MKD DEC Plt Morphology Comment LARGE Sodium 136 Potassium 3.4 L Chloride 102 Carbon Dioxide 26.0 Anion Gap 8 BUN 2 L Creatinine 0.61 L Estim Creat Clear Calc 138.87 Est GFR (MDRD) Af Amer 172 Est GFR (MDRD) Non-Af 142 BUN/Creatinine Ratio 3.3 L Glucose 120 H Lactic Acid 2.7 H* Calcium 7.6 L Total Bilirubin 1.90 H AST 104 H ALT 56 Alkaline Phosphatase 130 H Troponin I High Sens 8.1 Total Protein 6.5 Albumin 2.6 L Globulin 3.9 Albumin/Globulin Ratio 0.7 L Lipase 238 Urine Color Urine Clarity Urine pH Ur Specific [place] Urine Protein Urine Glucose (UA) Urine Ketones Urine Occult Blood Urine Nitrite Urine Bilirubin Urine Urobilinogen Ur Leukocyte Esterase Urine RBC Urine WBC Ur Squamous Epith Cells Urine Bacteria Urine Mucus Ethyl Alcohol 09/08/20 09/08/20 07:20 08:15 WBC RBC Hgb Hct MCV MCH MCHC RDW Std Deviation RDW Coeff of Delilah Plt Count MPV Immature Gran % (Auto) Neut % (Auto) Lymph % (Auto) [place] % (Auto) Eos % (Auto) Baso % (Auto) Absolute Neuts (auto) Absolute Lymphs (auto) Nucleated RBC % Differential Comment Diff Path Review Platelet Estimate Plt Morphology Comment Sodium Potassium Chloride Carbon Dioxide Anion Gap BUN Creatinine Estim Creat Clear Calc Est GFR (MDRD) Af Amer Est GFR (MDRD) Non-Af BUN/Creatinine Ratio Glucose Lactic Acid Calcium Total Bilirubin AST ALT Alkaline Phosphatase Troponin I High Sens Total Protein Albumin Globulin Albumin/Globulin Ratio Lipase Urine Color Yellow Urine Clarity Clear Urine pH 6.0 Ur Specific [place] 1.010 Urine Protein Negative Urine Glucose (UA) Normal Urine Ketones Negative Urine Occult Blood Negative Urine Nitrite Negative Urine Bilirubin Negative Urine Urobilinogen 8 H Ur Leukocyte Esterase 100 H Urine RBC 0 SEEN Urine WBC 0-5 SEEN Ur Squamous Epith Cells 0-5 SEEN Urine Bacteria 1+ Urine Mucus 0 SEEN Ethyl Alcohol 96.0 Radiology Impression Abdomen/Pelvis CT 09/08/20 07:05 IMPRESSION: 1. Cirrhosis with the moderate splenomegaly and a small amount of ascites. 2. Cholelithiasis. 3. No other acute abnormality. Electronically Signed: Frankie Lopez MD at 8:19 EDT Tel , Service support , Assessment & Plan Assessment/Plan (1) Intractable nausea and vomiting: (2) Pancytopenia: PLAN: 1. Intractable nausea and vomiting in the setting of alcohol abuse and cirrhosis with history of pancytopenia -We will continue with Zofran and IV fluids as indicated -We will continue with PPI, and place him on SCDs secondary to his thrombocytopenia -Creatinine is okay for is not significantly dehydrated -Does not want to discontinue drinking therefore will provide him beers with meals -He is a poor candidate for surgery -Except discussions on his prognosis if he continues to drink, he expressed understanding last time he was and he indicated he did not want to discontinue drinking -Continue with lactulose -Continue with his iron replacement, he is likely anemic secondary to his liver disease as well as poor nutritional status from his alcohol abuse DVT: SCDs Charges/Coding Visit Charges Inpatient E&M: 59969 Init Hosp L3
[2020-09-08 11:16] LABS: Reflex Lactate? Y
[2020-09-08] MEDS: 0.9% Normal Saline 1,000 ML 100 ML IV ×2 (11:37→20:56)
[2020-09-08] MEDS: traMADol 50 MG Tablet PO ×2 (11:37→19:58)
[2020-09-08] MEDS: 0.9% Saline Lock 10 ML Syringe IV ×2 (11:38→16:51)
[2020-09-08] MEDS: Spironolactone 25 MG Tablet 12.5 MG PO (14:39)
[2020-09-08] MEDS: Tamsulosin HCl 0.4 MG Capsule PO (14:39)
[2020-09-08] MEDS: Nadolol 40 MG Tablet PO (14:39)
[2020-09-08] MEDS: Lactulose 20 GM/30 ML UDC 10 GM PO ×2 (14:39→20:57)
[2020-09-08] MEDS: traZODone 100 MG Tablet PO (20:58)
[2020-09-09 02:47] VITALS: BP 102/54; PULSE 64; RESP 16; TEMP 36.6; O2SAT 93
[2020-09-09] MEDS: Lactulose 20 GM/30 ML UDC 10 GM PO ×3 (05:45→21:07)
[2020-09-09] MEDS: 0.9% Normal Saline 1,000 ML 100 ML IV ×2 (05:45→14:53)
[2020-09-09] MEDS: traMADol 50 MG Tablet PO ×3 (05:45→21:06)
[2020-09-09 06:26] LABS: Absolute Lymphocyte Count 0.91 X10^3/uL (0.83-4.51); Absolute Neutrophil Count 1.3 X10^3/uL (2.0-7.7); Basophil# 0.01 X10^3/uL; Basophil% 0.4 % (0-1); Eosinophil# 0.02 X10^3/uL; Eosinophils% 0.8 % (0-5); Hematocrit 32.5 % (40-54); Hemoglobin 10.9 g/dL (13.0-16.5); Lymphocyte # 0.91 X10^3/ul (0.83-4.51); Lymphocyte % 34.7 % (19-41); Mean Corp Hgb Conc 33.5 g/dL (32-36); Mean Corpuscular Hgb 33.6 pg (27.0-32.0); Mean Corpuscular Volume 100.3 fL (80-94); Mean Platelet Vol. 11.7 fl (6.2-12.0); Monocyte# 0.42 X10^3/uL; NRBC Flagged by Analyzer 0 % (0-5); Neutrophil # 1.26 X10^3/uL (2.7-7.7); Neutrophil % 48.1 % (47-70); POSITIVE COUNT YES; RBC Distribution Width CV 15.2 % (11.6-14.6); Red Blood Count 3.24 M/mm3 (4.6-6.2); White Blood Count 2.6 K/mm3 (4.4-11.0)
[2020-09-09 06:31] LABS: Anion Gap 6 (5-15); BUN 3 mg/dL (7-18); BUN/Creat Ratio 6.6 RATIO (10-20); Calcium,Total 7.1 mg/dL (8.5-10.1); Chloride 109 mmol/L (98-107); Creatinine, Serum 0.46 mg/dL (0.70-1.30); EST Glomerular Filtration Rate 201 mL/min (>60); Est Glom Filt Rate - Afr Amer 243 mL/min (>60); Estimated Creatinine Clearance 184.16 ml/min; Glucose 95 mg/dL (74-106); Potassium 3.5 mmol/L (3.5-5.1); Sodium Level 142 mmol/L (136-145)
[2020-09-09 06:32] LABS: Differential Indicated SCAN CRITERIA MET; Platelet Count 22 K/mm3 (150-450)
[2020-09-09 07:02] LABS: Differential Comment SCANNED
[2020-09-09 07:03] LABS: Anisocytosis 1+; Macrocytosis 1+; Platelet Estimate MKD DEC (ADEQ)
[2020-09-09 08:25] VITALS: BP 94/59; PULSE 62; RESP 16; TEMP 36.6; O2SAT 94
[2020-09-09 08:30] VITALS: PULSE 60
--- NOTE | 2020-09-09 10:21 | PCM.PN.HOSP ---
Subjective Subjective Feels little better, still has some abdominal pain but better than yesterday and he has some nausea but no emesis today. Objective Data Objective Data Vital Signs: Vital Signs Temp Pulse Resp BP Pulse Ox 97.8 F 62 16 94/59 L 94 09/09/20 08:25 09/09/20 08:25 09/09/20 08:25 09/09/20 08:25 09/09/20 08:25 Oxygen Delivery Method Room Air Weight: 192 lb 14.472 oz Body Mass Index (BMI) 26.9 Intake & Output: Intake and Output for Last 24 Hours 09/08/20 09/09/20 09/10/20 03:59 03:59 03:59 Intake Total 2231.67 / 2231.67 1581.67 / 1581.67 Balance 2231.67 / 2231.67 1581.67 / 1581.67 Lab / Micro Data Result Diagrams: 09/09/20 05:35 09/09/20 05:35 Labs: Laboratory Results - last 24 hr 09/08/20 09/09/20 09/09/20 11:24 05:35 05:35 WBC 2.6 L RBC 3.24 L Hgb 10.9 L Hct 32.5 L MCV 100.3 H MCH 33.6 H MCHC 33.5 RDW Std Deviation 56.0 H RDW Coeff of Delilah 15.2 H Plt Count 22 L* MPV 11.7 Immature Gran % (Auto) 0.000 Neut % (Auto) 48.1 Lymph % (Auto) 34.7 [place] % (Auto) 16.0 H Eos % (Auto) 0.8 Baso % (Auto) 0.4 Absolute Neuts (auto) 1.3 L Absolute Lymphs (auto) 0.91 Nucleated RBC % 0 Differential Comment SCANNED Diff Path Review May foll Platelet Estimate MKD DEC Anisocytosis 1+ Macrocytosis 1+ Sodium 142 Potassium 3.5 Chloride 109 H Carbon Dioxide 27.0 Anion Gap 6 BUN 3 L Creatinine 0.46 L Estim Creat Clear Calc 184.16 Est GFR (MDRD) Af Amer 243 Est GFR (MDRD) Non-Af 201 BUN/Creatinine Ratio 6.6 L Glucose 95 Lactic Acid 2.0 Calcium 7.1 L Physical Exam Const alert, oriented x3 and no apparent distress General Appearance: cooperative HEENT normocephalic Eyes PERRL, EOMs intact bilaterally and conjunctivae normal Neck supple and no JVD Resp normal respiratory effort, no retractions, no use of accessory muscles and clear to auscultation bilaterally Auscultation: Negative for crackles, rales, rhonchi or wheezes Cardio regular rate, regular rhythm, S1 normal heart sound, S2 normal heart sound and no murmurs GI soft to palpation and non-distended; Negative for hepatosplenomegaly Palpation: tender other Extremity no clubbing, cyanosis or edema Skin no rashes or lesions noted Neuro no focal motor deficits and no sensory deficits noted Psych affect normal Appearance: appropriate Assessment & Plan Assessment/Plan (1) Intractable nausea and vomiting: (2) Pancytopenia: PLAN: 1. Intractable nausea and vomiting in the setting of alcohol abuse and cirrhosis with history of pancytopenia -We will continue with Zofran and IV fluids as indicated -We will continue with PPI, and place him on SCDs secondary to his thrombocytopenia -Creatinine is okay so is not significantly dehydrated -Does not want to discontinue drinking therefore will provide him beers with meals -He is a poor candidate for surgery -Had discussions on his prognosis if he continues to drink, he expressed understanding last time he was and he indicated he did not want to discontinue drinking -Continue with lactulose -Continue with his iron replacement, he is likely anemic secondary to his liver disease as well as poor nutritional status from his alcohol abuse -We will continue to monitor his platelet levels, if they do decrease even further we will consult hematology however at this time he is not any lower than he has been in the past -But he continues to have pain we will redo a CT scan with contrast in the morning DVT: SCDs Charges/Coding Visit Charges Inpatient E&M: 35808 Subs Hosp L2
[2020-09-09] MEDS: Tamsulosin HCl 0.4 MG Capsule PO (10:25)
[2020-09-09] MEDS: Nadolol 40 MG Tablet PO (10:25)
[2020-09-09] MEDS: Pantoprazole Sodium 40 MG Tablet PO (10:25)
[2020-09-09] MEDS: Spironolactone 25 MG Tablet 12.5 MG PO (10:25)
[2020-09-09 14:45] VITALS: BP 103/59; PULSE 59; RESP 16; TEMP 36.5; O2SAT 93
[2020-09-09 20:43] VITALS: BP 98/54; PULSE 58; RESP 18; TEMP 36.5; O2SAT 100
[2020-09-09] MEDS: traZODone 100 MG Tablet PO (21:06)
[2020-09-09] MEDS: MELATONIN 3 MG TABLET PO (21:06)
[2020-09-10] MEDS: 0.9% Normal Saline 1,000 ML 100 ML IV ×2 (00:51→10:48)
[2020-09-10 03:07] VITALS: BP 104/54; PULSE 55; RESP 18; TEMP 36.6; O2SAT 94
[2020-09-10 05:44] LABS: Absolute Neutrophil Count 0.8 X10^3/uL (2.0-7.7); Basophil# 0.01 X10^3/uL; Basophil% 0.5 % (0-1); Eosinophil# 0.02 X10^3/uL; Hematocrit 32.9 % (40-54); Hemoglobin 10.9 g/dL (13.0-16.5); Lymphocyte % 39.8 % (19-41); Mean Corp Hgb Conc 33.1 g/dL (32-36); Mean Corpuscular Hgb 33.9 pg (27.0-32.0); Mean Corpuscular Volume 102.2 fL (80-94); Mean Platelet Vol. 11.8 fl (6.2-12.0); Monocyte# 0.37 X10^3/uL; Monocyte% 18.4 % (0-10); NRBC Flagged by Analyzer 0 % (0-5); Neutrophil # 0.81 X10^3/uL (2.7-7.7); Neutrophil % 40.3 % (47-70); POSITIVE COUNT YES; POSITIVE DIFFERENTIAL YES; RBC Distribution Width CV 15.5 % (11.6-14.6); Red Blood Count 3.22 M/mm3 (4.6-6.2)
[2020-09-10 05:48] LABS: Differential Indicated SCAN CRITERIA MET; Platelet Count 20 K/mm3 (150-450)
[2020-09-10] MEDS: Lactulose 20 GM/30 ML UDC 10 GM PO (06:03)
[2020-09-10 06:07] LABS: Anion Gap 5 (5-15); BUN 4 mg/dL (7-18); BUN/Creat Ratio 7.9 RATIO (10-20); Chloride 110 mmol/L (98-107); EST Glomerular Filtration Rate 179 mL/min (>60); Est Glom Filt Rate - Afr Amer 216 mL/min (>60); Estimated Creatinine Clearance 169.43 ml/min; Glucose 86 mg/dL (74-106); Potassium 3.7 mmol/L (3.5-5.1); Sodium Level 140 mmol/L (136-145)
[2020-09-10 06:13] LABS: Platelet Estimate MKD DEC (ADEQ)
[2020-09-10 08:43] VITALS: BP 107/61; PULSE 67; RESP 17; TEMP 36.4; O2SAT 94
[2020-09-10] MEDS: Pantoprazole Sodium 40 MG Tablet PO (08:55)
[2020-09-10] MEDS: Tamsulosin HCl 0.4 MG Capsule PO (08:55)
[2020-09-10] MEDS: traMADol 50 MG Tablet PO (08:59)
[2020-09-10] MEDS: Ondansetron 4 MG/2 ML Vial IV (08:59)
[2020-09-10 11:22] VITALS: BP 100/68; PULSE 64; RESP 18; TEMP 36.6; O2SAT 93
--- NOTE | 2020-09-10 11:29 | PCM.DC ---
Discharge Instructions Diet Discharge Diet: No restrictions Activity Discharge Activity: Return to Normal Activity Dressing / Incision Call your doctor if you observe: Fever of 101 or Higher, Shortness of breath, Dizziness, Swelling in the ankles, Chest pain and Increased palpitations (irregular heartbeat) Follow Up Care Test Results: Test results from this visit will be discussed in further detail at your follow-up appointment, if applicable. Discharge Plan Admission Admit Date/Time: 09/08/20 09:39 Attending Provider: Rigoberto Jose Primary Care Provider: Alice Cuellar Instructions Additional Instructions / Restrictions: Follow-up with your PCP as an outpatient to obtain a CBC and a CMP to monitor both your platelet count as well as her pancytopenia. We will also need to follow your renal function and your LFTs. Discharge Orders/Prescriptions Prescriptions: Continued nadolol 20 MG tablet 40 mg PO DAILY RF: 0 pantoprazole 40 MG tablet,delayed release (DR/EC) 40 mg PO DAILY RF: 0 ferrous sulfate [iron] 325 MG tablet 325 mg PO DAILY RF: 0 spironolactone 25 MG tablet 12.5 mg PO DAILY RF: 0 tramadol 50 MG tablet 50 mg PO Q6H PRN PRN (Reason: Pain Score 1-10) RF: 0 potassium chloride 10 MEQ tablet extended release 10 meq PO BID RF: 0 magnesium oxide 400 MG tablet 400 mg PO DAILYCM RF: 0 trazodone 100 MG tablet 100 mg PO QHS RF: 0 lactulose 10 GM/15 ML solution 10 ml PO TID RF: 0 multivitamin,wm-fpyy-diahlrxj 1 TABLET tablet 1 tab PO DAILYCM RF: 0 ondansetron 4 MG tablet 4 mg PO Q8H PRN PRN (Reason: Nausea) Qty: 10 RF: 0 tamsulosin 0.4 mg Capsule 0.4 mg PO DAILY RF: 0 Referrals / Follow Up: Alice Cuellar DO [Primary Care Provider] - In 1 Week Disposition Disposition (needs filled in before D/C Order can be placed): Home, Self Care
--- NOTE | 2020-09-10 12:32 | CASEMGMT ---
VAL NEGRON NOTE: Pt being discharged home. VAL CM to room to discuss discharge planning. Pt sitting up on edge in room. Pt states he does not have any concerns w/going home. He lives w/his . States he has/uses a walker and cane. He also has a shower chair available, but does not currently use it. He denies need for other DME. He states neither he nor his drive and he usually uses a taxi for transportation or walks whenever he can. He states he does not have a ride home today. [facility] Van transportation arranged for 2 PM today by this VAL NEGRON. RNMone, and pt both made aware. Pt voices appreciation. Pt denies other needs/concerns/questions. Care providers, pharmacy, and demographics verified at this time. PCP: Dr Cuellar Specialists: None Preferred Pharmacy: [facility] Insurance: [employer] Plan Prescription Benefit: Yes Neo KO RN, CM
[2020-09-10 12:42] VITALS: BP 95/63; PULSE 66; RESP 18; TEMP 36.4; O2SAT 96
--- NOTE | 2020-09-10 12:58 | PCM.DC.SUM ---
Providers Date of Admission: 09/08/20 Primary Care Physician: Dr. Alice Cuellar DO Reason For Visit: GASTRITIS Diagnosis Discharge Diagnosis (1) Intractable nausea and vomiting: Status: Acute Code(s): R11.2 - Nausea with vomiting, unspecified (2) Pancytopenia: Status: Acute Code(s): D61.818 - Other pancytopenia Medications at Discharge Home Medications ferrous sulfate [iron] 325 mg PO DAILY 03/20/18 nadolol 40 mg PO DAILY 03/20/18 pantoprazole 40 mg PO DAILY 03/20/18 spironolactone 12.5 mg PO DAILY 08/20/18 lactulose 10 ml PO TID 03/12/20 magnesium oxide 400 mg PO DAILYCM 03/12/20 potassium chloride 10 meq PO BID 03/12/20 tramadol 50 mg PO Q6H PRN PRN 03/12/20 trazodone 100 mg PO QHS 03/12/20 multivitamin,qo-uccp-hpwdevrf 1 tab PO DAILYCM tab 03/13/20 ondansetron 4 mg PO Q8H PRN PRN #10 tab 04/27/20 tamsulosin 0.4 mg PO DAILY 07/26/20 Hospital Course Operations None Procedures None Summary of Care Provided Minutes Spent on Discharge: 40 Hospital Course: Per HPI: JB ALARCON, is a 59 M who presents to the hospital with intractable nausea and vomiting as well as abdominal pain. He has had this issue several times in the past. He has a history of cirrhosis likely secondary to alcoholism with thrombocytopenia. He also has a history of gallstones however he is too high risk for surgery even at tertiary care center. He continues to drink despite understanding that it is adversely affecting his life. This current episode started few days ago however the pain got more severe this morning which is why he presented to the hospital. In the ER he was found to be thrombocytopenic which is a chronic issue for him. He did have a leukocytosis and his renal function was normal. His blood alcohol was elevated and it does not appear that he wants to discontinue drinking. Lactate was slightly elevated as well to 2.7 however he has no other signs of sepsis. Hospital Course: 1. Intractable nausea and vomiting in the setting of alcohol abuse and cirrhosis with history of pancytopenia -We will continue with Zofran and IV fluids as indicated -We will continue with PPI, and place him on SCDs secondary to his thrombocytopenia -Creatinine is okay so is not significantly dehydrated -Does not want to discontinue drinking therefore will provide him beers with meals -He is a poor candidate for surgery for his gallstones -Continue with lactulose -Continue with his iron replacement, he is likely anemic secondary to his liver disease as well as poor nutritional status from his alcohol abuse -Continues to have thrombocytopenia however he is never actually had normal platelets in our system and given how chronic it is secondary to his infection and his cirrhosis would recommend just continued outpatient monitoring with his PCP -He I did have an extensive discussion with him about his prognosis is but he does not discontinue drinking, he expressed understanding and does not plan on discontinuing his drinking at this time. His admission this time around marriage and very closely his admission in March. I recommend that he follow-up with his PCP in 3 to 5 days to obtain outpatient labs and monitoring his renal function as well as his pancytopenia.Some of his continued thrombocytopenia is likely dilutional secondary to the IV fluids he has received during this admission. He states that he is feeling much better today and states that he has not had any emesis has still a little bit of nausea but his abdominal pain is significantly improved and he would like to go home today. Physical Exam Const alert, oriented x3 and no apparent distress General Appearance: cooperative HEENT normocephalic Eyes PERRL, EOMs intact bilaterally and conjunctivae normal Neck supple and no JVD Resp normal respiratory effort, no retractions, no use of accessory muscles and clear to auscultation bilaterally Auscultation: Negative for crackles, rales, rhonchi or wheezes Cardio regular rate, regular rhythm, S1 normal heart sound, S2 normal heart sound and no murmurs GI soft to palpation, non-tender and non-distended; Negative for hepatosplenomegaly Extremity no clubbing, cyanosis or edema Skin no rashes or lesions noted Neuro no focal motor deficits and no sensory deficits noted Psych affect normal Appearance: appropriate Weight / BMI Weight Weight: 192 lb 14.472 oz Body Mass Index (BMI) 26.9 ABG / Lab / Microbiology Data Result Diagrams: 09/10/20 05:34 09/10/20 05:34 Laboratory: Laboratory Results - last 24 hr 09/10/20 05:34: WBC 2.0 L, RBC 3.22 L, Hgb 10.9 L, Hct 32.9 L, MCV 102.2 H, MCH 33.9 H, MCHC 33.1, RDW Std Deviation 58.0 H, RDW Coeff of Delilah 15.5 H, Plt Count 20 L*, MPV 11.8, Immature Gran % (Auto) 0.000, Neut % (Auto) 40.3 L, Lymph % (Auto) 39.8, [place] % (Auto) 18.4 H, Eos % (Auto) 1.0, Baso % (Auto) 0.5, Absolute Neuts (auto) 0.8 L, Absolute Lymphs (auto) 0.80 L, Nucleated RBC % 0, Diff Path Review June foll, Platelet Estimate MKD 09/10/20 05:34: Sodium 140, Potassium 3.7, Chloride 110 H, Carbon Dioxide 25.0, Anion Gap 5, BUN 4 L, Creatinine 0.50 L, Estim Creat Clear Calc 169.43, Est GFR (MDRD) Af Amer 216, Est GFR (MDRD) Non-Af 179, BUN/Creatinine Ratio 7.9 L, Glucose 86, Calcium 7.0 L D/C Instructions Discharge Diet: No restrictions Call your doctor if you observe: Fever of 101 or Higher, Shortness of breath, Dizziness, Swelling in the ankles, Chest pain and Increased palpitations (irregular heartbeat) Meaningful Use Info Meaningful Use Diagnoses (Choose all that apply): None applicable Discharge Plan Admission Admit Date/Time: 09/08/20 09:39 Attending Provider: Rigoberto Jose Primary Care Provider: Alice Cuellar Instructions Additional Instructions / Restrictions: Follow-up with your PCP as an outpatient to obtain a CBC and a CMP to monitor both your platelet count as well as her pancytopenia. We will also need to follow your renal function and your LFTs. Discharge Orders/Prescriptions Prescriptions: Continued nadolol 20 MG tablet 40 mg PO DAILY RF: 0 pantoprazole 40 MG tablet,delayed release (DR/EC) 40 mg PO DAILY RF: 0 ferrous sulfate [iron] 325 MG tablet 325 mg PO DAILY RF: 0 spironolactone 25 MG tablet 12.5 mg PO DAILY RF: 0 tramadol 50 MG tablet 50 mg PO Q6H PRN PRN (Reason: Pain Score 1-10) RF: 0 potassium chloride 10 MEQ tablet extended release 10 meq PO BID RF: 0 magnesium oxide 400 MG tablet 400 mg PO DAILYCM RF: 0 trazodone 100 MG tablet 100 mg PO QHS RF: 0 lactulose 10 GM/15 ML solution 10 ml PO TID RF: 0 multivitamin,hg-znis-othzpvcd 1 TABLET tablet 1 tab PO DAILYCM RF: 0 ondansetron 4 MG tablet 4 mg PO Q8H PRN PRN (Reason: Nausea) Qty: 10 RF: 0 tamsulosin 0.4 mg Capsule 0.4 mg PO DAILY RF: 0 Referrals / Follow Up: Alice Cuellar DO [Primary Care Provider] - In 1 Week Disposition Disposition (needs filled in before D/C Order can be placed): Home, Self Care Charges/Coding Visit Charges OBSV E&M: 84609 Observation care discharge
[2020-09-10 13:07] LABS: Pathologist Review Reviewed
[2020-09-10 13:09] LABS: Pathologist Review Reviewed
[2020-09-11 13:08] LABS: Pathologist Review Reviewed
== END 2020-09-10 13:59 | disposition home or self-care (01) ==
LOC: ED 09:44 → MS3 10:06
PROVIDERS: Admitting Provider Family Medicine; Emergency Provider Emergency Medicine; PCP Family Medicine; Visit Provider Family Medicine
DX: K80.20 Calculus of gallbladder without cholecystitis without obstruction (principal); D61.818 Other pancytopenia; Z79.899 Other long term (current) drug therapy; I10 Essential (primary) hypertension; I73.9 Peripheral vascular disease, unspecified; K70.30 Alcoholic cirrhosis of liver without ascites; F17.210 Nicotine dependence, cigarettes, uncomplicated; G89.29 Other chronic pain
CPT/HCPCS: 36415; 74176; 80048; 80053; 81001; 82077; 83605; 83690; 84484; 85025; 93005; 96361; 96374; 96375; 96376; 97802; 99218; 99285; 99406; J7030; A4216; G0378; J2405; J3490

== ENCOUNTER 2020-09-12 08:54 | Emergency (ER) | payer OTHER, SELFPAY ==
[2020-09-08 11:07] VITALS: BMI 26.9
[2020-09-12 08:56] VITALS: BP 134/80; PULSE 88; RESP 16; TEMP 36.7; O2SAT 99; BMI 28.6
--- NOTE | 2020-09-12 09:13 | EKG12_ITS ---
Test Reason : SOB, [place] Blood Pressure : / mmHG Vent. Rate : 068 BPM Atrial Rate : 068 BPM P-R Int : 170 ms QRS Dur : 094 ms QT Int : 432 ms P-R-T Axes : 042 041 038 degrees QTc Int : 459 ms Normal sinus rhythm Normal ECG Confirmed by ONDINA DAN, ROLAND ([id number]), food expeditor ANNABELLA TRIANA ([id number]) on 09/14/2020 9:21:30 AM Referred By: EDDIE Confirmed By:PILLO NJ MD
--- NOTE | 2020-09-12 09:14 | RAD_ITS ---
STUDY: X-RAY CHEST REASON FOR EXAM: Male, 59 years old. Sob TECHNIQUE: Single AP portable view of the chest. COMPARISON: Comparison is made with prior study dated 06/11/2020. FINDINGS: EKG electrodes are seen. The lungs are clear and expanded. There is no demonstrated pleural abnormality. Normal size heart. Normal mediastinum and kelly. Normal visualized pulmonary arteries. Normal visualized aortic arch and descending thoracic aorta. Normal visualized thoracic spine. Normal visualized ribs, clavicles, and shoulders. There is no demonstrated abnormality of the visualized soft tissue structures of the upper abdomen. RAD/Chest 1 View (Portable) IMPRESSION: Normal x-ray examination of the chest. Electronically Signed: Mor Hawkins MD at 10:05 EDT , Service support ,
--- NOTE | 2020-09-12 09:19 | ED.VIS.GI ---
HPI HPI - GI History of Present Illness Chief Complaint: Nausea/Vomiting Informant: patient Abdominal Pain/Flank Pain Onset: Today (Within the last 2 hours) Context: - (woke up w/ sx) Timing: Continuous Quality: Aching Location: Diffuse (periumbilical area) Current Severity: Moderate Maximum Severity: Moderate Worsened by: Nothing Relieved by: Nothing Nausea/Vomiting/Emesis GI Symptom: Positive for Nausea and Vomiting Quality: Positive for Nonbilious; Negative for Blood streaks, Coffee ground and Hematemesis Diarrhea/Melena/Hematochezia GI Symptom: Positive for - (last BM this AM, normal); Negative for Diarrhea, Melena and Hematochezia Narrative Narrative: Patient was just here in the hospital for intractable abdominal pain and vomiting, he stayed for 2 days was treated and improved. His abdominal pain is chronic. He apparently has a history of cholelithiasis but was considered too high risk for surgery even at a tertiary care center. He did not have cholecystitis when he was here recently. He was just discharged day before yesterday. He has alcoholic cirrhosis and continues to drink and smoke. He has also been diagnosed with esophageal varices in the past. He states that the abdominal pain continues to be intermittent and similar, but he does not have any new abdominal symptoms. He did not have any alcohol the day he was discharged. Yesterday he had a single beer, and he states that beer and cigarettes that he smokes yesterday were his last. He woke up this morning feeling short of breath and vomiting. He is still nauseated. He was drinking some water and keeping it down temporarily so I had something to throw up. He states he does not feel short of breath anymore but was mainly concerned about that. He denies having any chest discomfort, palpitations, syncope or near syncope, or any other new symptoms. PFSH PFSH Medical History Aortic aneurysm without rupture Benign essential hypertension Chronic pain Diastolic dysfunction Esophageal varices in alcoholic cirrhosis Liver cirrhosis, alcoholic Peripheral arterial disease Smoker Home Medications ferrous sulfate [iron] 325 mg PO DAILY 03/20/18 [History Last Taken 03/11/20] nadolol 40 mg PO DAILY 03/20/18 [History Last Taken 03/11/20] pantoprazole 40 mg PO DAILY 03/20/18 [History Last Taken 03/11/20] spironolactone 12.5 mg PO DAILY 08/20/18 [History Last Taken 03/11/20] lactulose 10 ml PO TID 03/12/20 [History Last Taken 03/11/20] magnesium oxide 400 mg PO DAILYCM 03/12/20 [History Last Taken 03/11/20] potassium chloride 10 meq PO BID 03/12/20 [History Last Taken 03/11/20] tramadol 50 mg PO Q6H PRN PRN 03/12/20 [History Last Taken Unknown] trazodone 100 mg PO QHS 03/12/20 [History Last Taken 03/11/20] multivitamin,lq-ixte-uexmqxjh 1 tab PO DAILYCM tab 03/13/20 [Rx Last Taken Unknown] ondansetron 4 mg PO Q8H PRN PRN #10 tab 04/27/20 [Rx Last Taken Unknown] tamsulosin 0.4 mg PO DAILY 07/26/20 [History Last Taken Unknown] metoclopramide HCl 10 mg PO 4X/DAY PRN #20 tab 09/12/20 [Rx Last Taken Unknown] Allergy/AdvReac Type Severity Reaction Status Date / Time No Known Allergies Allergy Verified 09/08/20 06:48 Family History Mother Cancer Father Lupus Surgical History History of aortic aneurysm repair Social History household members: none Smoking Status: Current every day smoker tobacco type: cigarettes alcohol intake: current alcohol intake frequency: a few times a week substance use type: does not use ROS ROS ED Constitutional Constitutional ED: Denies chills or fever(s) Eyes Eyes: Denies change in vision or diplopia ENT ENT ED: Denies rhinorrhea or sore throat Cardiovascular Cardiovascular: Denies chest pain or palpitations Respiratory/Chest Respiratory/Chest: Reports as per HPI and dyspnea; Denies cough Gastrointestinal Gastrointestinal: Reports as per HPI, abdominal pain, nausea and vomiting; Denies diarrhea Genitourinary Genitourinary ED: Denies dysuria or hematuria Musculoskeletal Musculoskeletal: Denies back pain or neck pain Integumentary Denies abscess or rash Neurologic Neurologic: Denies headache(s), paresthesias or weakness Psychiatric Psychiatric: Denies anxiety or suicidal thoughts EXAM Physical Exam Const Vital Signs: 09/12/20 08:56 09/12/20 11:21 Temperature 98.1 F 98 F Temperature Source Oral Temporal Pulse Rate 88 81 Respiratory Rate 16 16 Blood Pressure 134/80 H 142/115 H Blood Pressure Mean 98 124 Pulse Ox 99 98 Oxygen Delivery Method Room Air Room Air Positive well nourished and well developed General Appearance ED: well developed and NAD HEENT Reports moist mucous membranes normocephalic and atraumatic Eyes PERRL and EOMs intact bilaterally Neck full ROM and supple Resp normal respiratory effort and clear to auscultation bilaterally Cardio regular rate, regular rhythm and no murmurs GI non-distended GI Narrative: Abdominal distention with fluid wave, soft, consistent with cirrhosis, not tense. Mildly tender across lower abdomen more on the left side, no tenderness right upper quadrant. No rebound tenderness. Inspection: abdominal distention Auscultation: normoactive bowel sounds Palpation: soft Back/Spine no CVA tenderness General Back: other FROM Extremity normal to inspection General Extremety ED: Negative for edema, pulses abnormal or tenderness General Extremity: Negative for edema or pulses abnormal Neuro oriented x3, CN's II-XII intact bilaterally and no sensory deficits noted Sensorium / Orientation: awake and alert Motor Exam: strength 5/5 throughout Skin no rashes or lesions noted and no wounds MDM MDM MDM Narrative Medical decision making narrative: Patient was treated with IV fluids and Zofran. His chest x-ray, EKG, troponin all normal. He will need a delta troponin since he just started having symptoms. He was asking for pain medicine because his abdominal pain became worse shortly after I saw him, he was given morphine which helped. He is not dyspneic upon my evaluation and did not become dyspneic again, even with walking back and forth to the bathroom down the hallway of the emergency department. I do not think he needs work-up for pulmonary embolus given the transient nature of the dyspnea, asymptomatic with exertion, no tachycardia, and a pulse ox of 99%. He was only admitted to the hospital for 2 days, he was not bedridden during that time, and has no clinical sign of a DVT or PE. In addition to all of this, he is naturally thrombocytopenic and mildly anticoagulated with a recent INR of 1.4, all due to his cirrhosis. All of this makes him very unlikely to have a pulmonary embolus at this time. Additionally, his delta troponin is negative and the delta is only 2.2. He was additionally given Reglan because he still had some nausea, this helped, he would still complaining of pain but was improved after morphine. This is chronic for him. He states to the nurse if it were not for the shortness of breath, I would not have come in. He is reassured with regards to his transient dyspnea which could have been anxiety, and he is discharged in stable improved condition. Lab Data Attestation: I reviewed the patient's lab results. Labs: Laboratory Results - last 24 hr 09/12/20 09/12/20 09/12/20 09:25 09:25 11:25 WBC 2.3 L RBC 3.61 L Hgb 12.4 L Hct 36.2 L MCV 100.3 H MCH 34.3 H MCHC 34.3 RDW Std Deviation 57.5 H RDW Coeff of Delilah 15.9 H Plt Count 40 L* MPV 10.8 Immature Gran % (Auto) 0.400 Neut % (Auto) 53.8 Lymph % (Auto) 19.6 [place] % (Auto) 24.9 H Eos % (Auto) 0.4 Baso % (Auto) 0.9 Absolute Neuts (auto) 1.2 L Absolute Lymphs (auto) 0.44 L Nucleated RBC % 0 Differential Comment SCANNED Diff Path Review May foll Platelet Estimate MKD DEC Sodium 141 Potassium 3.8 Chloride 107 Carbon Dioxide 30.0 Anion Gap 4 L BUN 3 L Creatinine 0.68 L Estim Creat Clear Calc 124.58 Est GFR (MDRD) Af Amer 152 Est GFR (MDRD) Non-Af 126 BUN/Creatinine Ratio 4.4 L Glucose 132 H Calcium 7.6 L Troponin I High Sens 7.2 9.4 Radiography Diagnostic Testing: Radiology Impression Chest X-Ray 09/12/20 09:14 IMPRESSION: Normal x-ray examination of the chest. Electronically Signed: Mor Hawkins MD at 10:05 EDT , Service support , EKG Initial EKG: Attestation: I personally reviewed and interpreted this EKG as follows: Interpretation: Sinus Rhythm and No Acute Injury Pattern Comments: Normal EKG Prior EKG tracings: available for review Prior: Unchanged Discharge Plan Triage Chief Complaint: Nausea/Vomiting ED Provider: Bruce Estrada Dx/Rx/DC Orders Clinical Impression: Intermittent generalized abdominal pain, Vomiting, Acute dyspnea Instructions: ED Dyspnea Prescriptions: New metoclopramide HCl [metoclopramide HCl] 10 MG tablet 10 mg PO 4X/DAY PRN (Reason: Headache) Qty: 20 RF: 0 No Action nadolol 20 MG tablet 40 mg PO DAILY RF: 0 pantoprazole 40 MG tablet,delayed release (DR/EC) 40 mg PO DAILY RF: 0 ferrous sulfate [iron] 325 MG tablet 325 mg PO DAILY RF: 0 spironolactone 25 MG tablet 12.5 mg PO DAILY RF: 0 tramadol 50 MG tablet 50 mg PO Q6H PRN PRN (Reason: Pain Score 1-10) RF: 0 potassium chloride 10 MEQ tablet extended release 10 meq PO BID RF: 0 magnesium oxide 400 MG tablet 400 mg PO DAILYCM RF: 0 trazodone 100 MG tablet 100 mg PO QHS RF: 0 lactulose 10 GM/15 ML solution 10 ml PO TID RF: 0 multivitamin,bb-aafx-qyfnnnoj 1 TABLET tablet 1 tab PO DAILYCM RF: 0 ondansetron 4 MG tablet 4 mg PO Q8H PRN PRN (Reason: Nausea) Qty: 10 RF: 0 tamsulosin 0.4 mg Capsule 0.4 mg PO DAILY RF: 0 Primary Care Provider: Alice Cuellar Referrals: Alice Cuellar DO [Primary Care Provider] - 3-5 Days if not improving Disposition Disposition: Home, Self Care
[2020-09-12] MEDS: Dicyclomine 20 MG/2 ML Vial IM (09:37)
[2020-09-12] MEDS: Ondansetron 4 MG/2 ML Vial IV (09:37)
[2020-09-12] MEDS: Morphine 4 MG/ML Syringe IV (09:37)
[2020-09-12 09:38] LABS: Absolute Lymphocyte Count 0.44 X10^3/uL (0.83-4.51); Absolute Neutrophil Count 1.2 X10^3/uL (2.0-7.7); Basophil# 0.02 X10^3/uL; Basophil% 0.9 % (0-1); Eosinophil# 0.01 X10^3/uL; Eosinophils% 0.4 % (0-5); Hematocrit 36.2 % (40-54); Hemoglobin 12.4 g/dL (13.0-16.5); Lymphocyte # 0.44 X10^3/ul (0.83-4.51); Lymphocyte % 19.6 % (19-41); Mean Corp Hgb Conc 34.3 g/dL (32-36); Mean Corpuscular Hgb 34.3 pg (27.0-32.0); Mean Corpuscular Volume 100.3 fL (80-94); Mean Platelet Vol. 10.8 fl (6.2-12.0); Monocyte# 0.56 X10^3/uL; Monocyte% 24.9 % (0-10); NRBC Flagged by Analyzer 0 % (0-5); Neutrophil # 1.21 X10^3/uL (2.7-7.7); Neutrophil % 53.8 % (47-70); POSITIVE COUNT YES; POSITIVE DIFFERENTIAL YES; RBC Distribution Width CV 15.9 % (11.6-14.6); RBC Distribution Width SD 57.5 fl (35.1-43.9); Red Blood Count 3.61 M/mm3 (4.6-6.2); White Blood Count 2.3 K/mm3 (4.4-11.0)
[2020-09-12 09:51] LABS: Differential Indicated SCAN CRITERIA MET
[2020-09-12 09:52] LABS: Platelet Count 40 K/mm3 (150-450)
[2020-09-12 09:57] LABS: Anion Gap 4 (5-15); BUN 3 mg/dL (7-18); BUN/Creat Ratio 4.4 RATIO (10-20); Calcium,Total 7.6 mg/dL (8.5-10.1); Chloride 107 mmol/L (98-107); Creatinine, Serum 0.68 mg/dL (0.70-1.30); EST Glomerular Filtration Rate 126 mL/min (>60); Est Glom Filt Rate - Afr Amer 152 mL/min (>60); Estimated Creatinine Clearance 124.58 ml/min; Glucose 132 mg/dL (74-106); Potassium 3.8 mmol/L (3.5-5.1); Sodium Level 141 mmol/L (136-145); Troponin-I HS 7.2 pg/mL (3.0-78.5)
[2020-09-12 10:16] LABS: Differential Comment SCANNED; Platelet Estimate MKD DEC (ADEQ)
[2020-09-12] MEDS: Metoclopramide 10 MG/2 ML Vial IV (11:19)
[2020-09-12 11:21] VITALS: BP 142/115; PULSE 81; RESP 16; TEMP 36.6; O2SAT 98; O2SAT 99
[2020-09-12 11:49] LABS: Troponin-I HS 9.4 pg/mL (3.0-78.5)
[2020-09-12 12:42] VITALS: BP 122/70; PULSE 75; RESP 18; O2SAT 98
[2020-09-13 13:51] LABS: Pathologist Review Reviewed
== END 2020-09-12 12:45 | disposition home or self-care (01) ==
PROVIDERS: Emergency Provider Emergency Medicine; PCP Family Medicine
DX: R11.2 Nausea with vomiting, unspecified (principal); R10.84 Generalized abdominal pain; R06.00 Dyspnea, unspecified; F17.210 Nicotine dependence, cigarettes, uncomplicated; Z86.79 Personal history of other diseases of the circulatory system; I10 Essential (primary) hypertension; G89.29 Other chronic pain; I73.9 Peripheral vascular disease, unspecified
CPT/HCPCS: 71045; 80048; 84484; 85025; 93005; 96374; 96375; 99285; J7030; A4216; J2405

== ENCOUNTER 2020-09-14 04:07 | Emergency (ER) | payer OTHER, SELFPAY ==
[2020-09-14 04:07] VITALS: BP 147/78; PULSE 82; RESP 18; TEMP 35.5; O2SAT 96; BMI 28.5
--- NOTE | 2020-09-14 04:12 | EDS_ITS ---
HPI <Dr. David Gaitan MD - Last Filed: 09/14/20 05:36> History of Present Illness Chief Complaint: Abd Pain Informant: patient Onset/Context/Timing Onset: Hours Context: Sudden Onset Timing: Continuous Current Severity: Moderate Maximum Severity: Severe Worsened by: Movement Relieved by: Nothing Associated Symptoms Associated Symptoms: Nausea with dry heaves Narrative Narrative: Patient is a 59-year-old male with multiple medical problems who presents with abdominal pain, distention and dry heaves. Onset of symptoms 5 hours prior to presentation. He arrived via ambulance. He states he no longer drinks. He states he no longer smokes. There is no history of drug use. He denies fever, chills night sweats. He does endorse dry mouth and thirst. He denies cardiac respiratory symptoms. His last bowel movement was 22 hours ago. He states he did pass gas yesterday. Prior similar symptoms: Yes Recent Illness/Hospitalization: No PFSH <Dr. David Gaitan MD - Last Filed: 09/14/20 05:36> PFSH Medical History Aortic aneurysm without rupture Benign essential hypertension Chronic pain Diastolic dysfunction Esophageal varices in alcoholic cirrhosis Liver cirrhosis, alcoholic Peripheral arterial disease Smoker Home Medications ferrous sulfate [iron] 325 mg PO DAILY 03/20/18 [History Last Taken 03/11/20] nadolol 40 mg PO DAILY 03/20/18 [History Last Taken 03/11/20] pantoprazole 40 mg PO DAILY 03/20/18 [History Last Taken 03/11/20] spironolactone 12.5 mg PO DAILY 08/20/18 [History Last Taken 03/11/20] lactulose 10 ml PO TID 03/12/20 [History Last Taken 03/11/20] magnesium oxide 400 mg PO DAILYCM 03/12/20 [History Last Taken 03/11/20] potassium chloride 10 meq PO BID 03/12/20 [History Last Taken 03/11/20] tramadol 50 mg PO Q6H PRN PRN 03/12/20 [History Last Taken Unknown] trazodone 100 mg PO QHS 03/12/20 [History Last Taken 03/11/20] multivitamin,ez-xyjw-lcbaellg 1 tab PO DAILYCM tab 03/13/20 [Rx Last Taken Unknown] ondansetron 4 mg PO Q8H PRN PRN #10 tab 04/27/20 [Rx Last Taken Unknown] tamsulosin 0.4 mg PO DAILY 07/26/20 [History Last Taken Unknown] metoclopramide HCl 10 mg PO 4X/DAY PRN #20 tab 09/12/20 [Rx Last Taken Unknown] ondansetron 8 mg PO Q8H PRN PRN #20 tab 09/14/20 [Rx Last Taken Unknown] Allergy/AdvReac Type Severity Reaction Status Date / Time No Known Allergies Allergy Verified 09/14/20 04:12 Family History Mother Cancer Father Lupus Surgical History History of aortic aneurysm repair Social History household members: none Smoking Status: Former smoker alcohol intake: current alcohol intake frequency: a few times a week substance use type: does not use ROS <Dr. David Gaitan MD - Last Filed: 09/14/20 05:36> ROS ED Constitutional Constitutional ED: Denies chills, fever(s), subjective or sweats Eyes Eyes: Denies blurry vision or change in vision ENT ENT ED: Denies ear pain, rhinorrhea or sore throat Cardiovascular Cardiovascular: Denies chest pain, palpitations or racing heartbeat Respiratory/Chest Respiratory/Chest: Denies cough, dyspnea or dyspnea on exertion Gastrointestinal Gastrointestinal: Reports abdominal pain, nausea and vomiting; Denies constipation or diarrhea Genitourinary Genitourinary ED: Denies dysuria, hematuria or urinary frequency Musculoskeletal Musculoskeletal: Denies arthralgias, back pain or myalgias Integumentary Denies rash Neurologic Neurologic: Reports weakness; Denies headache(s) or paresthesias Psychiatric Psychiatric: Reports depression Allergic/Immunologic Allergic/Immunologic ED: Denies mouth swelling, tongue swelling or urticaria EXAM <Dr. David Gaitan MD - Last Filed: 09/14/20 05:36> Physical Exam Const Vital Signs: 09/14/20 04:07 09/14/20 06:14 09/14/20 08:10 Temperature 96 F L Temperature Source Temporal Pulse Rate 82 82 Respiratory Rate 18 17 Blood Pressure 147/78 H 138/64 H 101/70 Blood Pressure Mean 101 88 80 Pulse Ox 96 94 Oxygen Delivery Method Room Air Room Air Positive well nourished and well developed General Appearance ED: well developed; Negative for cyanotic, diaphoretic or NAD HEENT Reports dry mucous membranes HEENT Narrative: Face symmetric. Nares patent. Uvula midline. No erythema or exudate posterior pharynx Mouth ED: Yes dry mucous membranes Mouth: dry mucous membranes Eyes PERRL and EOMs intact bilaterally General Eye ED: Negative for pale conjunctiva or scleral icterus Neck no lymphadenopathy, supple and no JVD Resp normal respiratory effort and clear to auscultation bilaterally Cardio regular rate, regular rhythm, S1 normal heart sound, S2 normal heart sound and no murmurs GI Inspection: abdominal distention Auscultation: hyperactive bowel sounds Palpation: tender other (Diffuse) and guarding other (Diffuse) Back/Spine no CVA tenderness Thoracic Spine / Upper Back: Negative for thoracic spinal tenderness or paraspinal muscle tenderness Extremity Negative for normal to inspection Extremity Narrative: Stigmata of peripheral arterial disease General Extremety ED: Yes edema and tenderness General Extremity: edema Neuro No oriented x3 and No CN's II-XII intact bilaterally Sensorium / Orientation: Negative for alert Motor Exam: Negative for strength 5/5 throughout Psych Psych Narrative: Affect is flat. Skin Skin Narrative: Bruising noted. <Dr. Orlando Adames DO - Last Filed: 09/14/20 08:14> Physical Exam Const Vital Signs: 09/14/20 04:07 09/14/20 06:14 09/14/20 08:10 Temperature 96 F L Temperature Source Temporal Pulse Rate 82 82 Respiratory Rate 18 17 Blood Pressure 147/78 H 138/64 H 101/70 Blood Pressure Mean 101 88 80 Pulse Ox 96 94 Oxygen Delivery Method Room Air Room Air [facility] <Dr. David Gaitan MD - Last Filed: 09/14/20 05:36> [facility] Narrative Medical decision making narrative: Abdominal distention, nausea dry heaves, increased tinkling bowel sounds concern for bowel obstruction. Will obtain abdominal series. Appropriate blood work was ordered. IV fluids were ordered. He was ordered Zofran and morphine for his nausea and discomfort. Lab Data Attestation: I reviewed the patient's lab results. Lab results narrative: Patient's CBC is marked for neutropenia and thrombocytopenia which is unchanged from prior. Comprehensive metabolic panel reveals noted total bili, which is about baseline. AST is elevated 66. Labs: Laboratory Results - last 24 hr 09/14/20 09/14/20 04:12 04:12 WBC 3.2 L RBC 3.81 L Hgb 13.0 Hct 38.3 L MCV 100.5 H MCH 34.1 H MCHC 33.9 RDW Std Deviation 59.4 H RDW Coeff of Delilah 16.1 H Plt Count 40 L* MPV 10.5 Immature Gran % (Auto) 0.300 Neut % (Auto) 34.7 L Lymph % (Auto) 40.4 [place] % (Auto) 23.1 H Eos % (Auto) 0.9 Baso % (Auto) 0.6 Absolute Neuts (auto) 1.1 L Absolute Lymphs (auto) 1.31 Nucleated RBC % 0 Diff Path Review May foll Sodium 139 Potassium 3.8 Chloride 104 Carbon Dioxide 25.0 Anion Gap 10 BUN 5 L Creatinine 0.63 L Estim Creat Clear Calc 134.46 Est GFR (MDRD) Af Amer 168 Est GFR (MDRD) Non-Af 139 BUN/Creatinine Ratio 8.0 L Glucose 128 H Calcium 7.9 L Total Bilirubin 1.70 H AST 66 H ALT 44 Alkaline Phosphatase 117 Total Protein 6.3 L Albumin 2.5 L Globulin 3.8 Albumin/Globulin Ratio 0.7 L Radiography Chest X-Ray - ED: Read by ED Physician (Three-view abdominal series reveals multiple air-fluid levels. This does not represent present classic stairstepping consistent with bowel obstruction. This is nondiagnostic. There is also significant amount of air throughout the colon. CT of the abdomen and pelvis with p.o. contrast was obtaine) Diagnostic Testing: Radiology Impression Acute Abdomen Series 09/14/20 04:39 IMPRESSION: Nonspecific bowel gas pattern with small air-fluid levels scattered throughout small and large bowel, without focal distention. Finding can be seen mild or early ileus. No evidence to suggest focal obstruction. Additional radiographic follow-up recommended. at 0541 Reported and signed by: Roverto Rojo MD Electronically Signed: Roverto Rojo MD at 5:40 EDT Tel , Service support , Abdomen/Pelvis CT 09/14/20 05:04 IMPRESSION: Cirrhotic liver with evidence of portal hypertension including gross recanalization of the umbilical vein. Moderate volume diffuse ascites and gross splenomegaly. Cholelithiasis. Gallbladder evaluation is limited due to surrounding ascites. No evidence of bowel obstruction Individualized dose optimization techniques were used for this CT. at 0705 Reported and signed by: Roverto Rojo MD Electronically Signed: Roverto Rojo MD at 7:04 EDT Tel , Service support , <Dr. Orlando Adames, DO - Last Filed: 09/14/20 08:14> [facility] Lab Data Labs: Laboratory Results - last 24 hr 09/14/20 09/14/20 04:12 04:12 WBC 3.2 L RBC 3.81 L Hgb 13.0 Hct 38.3 L MCV 100.5 H MCH 34.1 H MCHC 33.9 RDW Std Deviation 59.4 H RDW Coeff of Delilah 16.1 H Plt Count 40 L* MPV 10.5 Immature Gran % (Auto) 0.300 Neut % (Auto) 34.7 L Lymph % (Auto) 40.4 [place] % (Auto) 23.1 H Eos % (Auto) 0.9 Baso % (Auto) 0.6 Absolute Neuts (auto) 1.1 L Absolute Lymphs (auto) 1.31 Nucleated RBC % 0 Diff Path Review May foll Sodium 139 Potassium 3.8 Chloride 104 Carbon Dioxide 25.0 Anion Gap 10 BUN 5 L Creatinine 0.63 L Estim Creat Clear Calc 134.46 Est GFR (MDRD) Af Amer 168 Est GFR (MDRD) Non-Af 139 BUN/Creatinine Ratio 8.0 L Glucose 128 H Calcium 7.9 L Total Bilirubin 1.70 H AST 66 H ALT 44 Alkaline Phosphatase 117 Total Protein 6.3 L Albumin 2.5 L Globulin 3.8 Albumin/Globulin Ratio 0.7 L Radiography Diagnostic Testing: Radiology Impression Acute Abdomen Series 09/14/20 04:39 IMPRESSION: Nonspecific bowel gas pattern with small air-fluid levels scattered throughout small and large bowel, without focal distention. Finding can be seen mild or early ileus. No evidence to suggest focal obstruction. Additional radiographic follow-up recommended. at 0541 Reported and signed by: Roverto Rojo MD Electronically Signed: Roverto Rojo MD at 5:40 EDT Tel , Service support , Abdomen/Pelvis CT 09/14/20 05:04 IMPRESSION: Cirrhotic liver with evidence of portal hypertension including gross recanalization of the umbilical vein. Moderate volume diffuse ascites and gross splenomegaly. Cholelithiasis. Gallbladder evaluation is limited due to surrounding ascites. No evidence of bowel obstruction Individualized dose optimization techniques were used for this CT. at 0705 Reported and signed by: Roverto Rojo MD Electronically Signed: Roverto Rojo MD at 7:04 EDT Tel , Service support , Discharge Plan Triage Chief Complaint: Abd Pain ED Provider: Orlando Adames Dx/Rx/DC Orders Instructions: ED Vomiting (Adult) Prescriptions: New ondansetron 4 mg tablet,disintegrating 8 mg PO Q8H PRN PRN (Reason: Nausea) Qty: 20 RF: 0 No Action nadolol 20 MG tablet 40 mg PO DAILY RF: 0 pantoprazole 40 MG tablet,delayed release (DR/EC) 40 mg PO DAILY RF: 0 ferrous sulfate [iron] 325 MG tablet 325 mg PO DAILY RF: 0 spironolactone 25 MG tablet 12.5 mg PO DAILY RF: 0 tramadol 50 MG tablet 50 mg PO Q6H PRN PRN (Reason: Pain Score 1-10) RF: 0 potassium chloride 10 MEQ tablet extended release 10 meq PO BID RF: 0 magnesium oxide 400 MG tablet 400 mg PO DAILYCM RF: 0 trazodone 100 MG tablet 100 mg PO QHS RF: 0 lactulose 10 GM/15 ML solution 10 ml PO TID RF: 0 multivitamin,ty-baih-byqaxzth 1 TABLET tablet 1 tab PO DAILYCM RF: 0 ondansetron 4 MG tablet 4 mg PO Q8H PRN PRN (Reason: Nausea) Qty: 10 RF: 0 tamsulosin 0.4 mg Capsule 0.4 mg PO DAILY RF: 0 metoclopramide HCl [metoclopramide HCl] 10 MG tablet 10 mg PO 4X/DAY PRN (Reason: Headache) Qty: 20 RF: 0 Primary Care Provider: Alice Cuellar Referrals: Alice Cuellar DO [Primary Care Provider] - Disposition Disposition: Home, Self Care
[2020-09-14] MEDS: Ondansetron 4 MG/2 ML Vial IV (04:15)
[2020-09-14] MEDS: Morphine 4 MG/ML Syringe IV ×2 (04:15→05:44)
[2020-09-14 04:26] LABS: Absolute Lymphocyte Count 1.31 X10^3/uL (0.83-4.51); Absolute Neutrophil Count 1.1 X10^3/uL (2.0-7.7); Basophil# 0.02 X10^3/uL; Basophil% 0.6 % (0-1); Eosinophil# 0.03 X10^3/uL; Eosinophils% 0.9 % (0-5); Hematocrit 38.3 % (40-54); Lymphocyte # 1.31 X10^3/ul (0.83-4.51); Lymphocyte % 40.4 % (19-41); Mean Corp Hgb Conc 33.9 g/dL (32-36); Mean Corpuscular Hgb 34.1 pg (27.0-32.0); Mean Corpuscular Volume 100.5 fL (80-94); Mean Platelet Vol. 10.5 fl (6.2-12.0); Monocyte# 0.75 X10^3/uL; Monocyte% 23.1 % (0-10); NRBC Flagged by Analyzer 0 % (0-5); Neutrophil # 1.12 X10^3/uL (2.7-7.7); Neutrophil % 34.7 % (47-70); POSITIVE COUNT YES; RBC Distribution Width CV 16.1 % (11.6-14.6); RBC Distribution Width SD 59.4 fl (35.1-43.9); Red Blood Count 3.81 M/mm3 (4.6-6.2); White Blood Count 3.2 K/mm3 (4.4-11.0)
[2020-09-14 04:27] LABS: Differential Indicated SCAN CRITERIA MET; Platelet Count 40 K/mm3 (150-450)
--- NOTE | 2020-09-14 04:39 | RAD_ITS ---
HISTORY: Pain, distention tinkling bowel sounds EXAMINATION/TECHNIQUE: XR Abdomen Series W/ Chest 1 View: Frontal chest with 4 view upright and supine abdominal radiograph COMPARISON: September 12, 2020 radiograph. September 08, 2020 CT abdomen and pelvis FINDINGS: --Chest: LINES/DEVICES: None. LUNGS: No consolidation, edema or effusion. No pneumothorax. MEDIASTINUM AND CARDIOVASCULAR STRUCTURES: Cardiac silhouette not enlarged. Central airways and mediastinal contour are unremarkable. BONES AND SOFT TISSUES: No acute findings. --Abdomen: LINES AND TUBES: Epigastric surgical clips are present. BOWEL GAS PATTERN: Nonspecific bowel gas pattern with scattered diffuse small and large bowel gas, without focal distention. Multiple small air-fluid levels are present throughout the ascending and descending colon and within scattered small bowel loops. FREE AIR: None visualized. ORGANOMEGALY: Not seen. CALCIFICATIONS: No abnormal calcifications observed. BONES AND SOFT TISSUES: No acute findings. RAD/Acute Abdomen Inc Chest IMPRESSION: Nonspecific bowel gas pattern with small air-fluid levels scattered throughout small and large bowel, without focal distention. Finding can be seen mild or early ileus. No evidence to suggest focal obstruction. Additional radiographic follow-up recommended. at 0541 Reported and signed by: Roverto Rojo MD Electronically Signed: Roverto Rojo MD at 5:40 EDT Tel , Service support ,
--- NOTE | 2020-09-14 05:04 | CT_ITS ---
HISTORY: Distention, tinkling bowel sounds, prior small bow TECHNIQUE: Multiple axial images were obtained of the abdomen and pelvis without oral or IV contrast. Coronal and sagittal reformats obtained. A radiation dose optimization technique was used for this scan. COMPARISON: 09/08/2020 FINDINGS: # of images incl. paperwork: [id number] LUNG BASES: Small left basilar effusion. Bibasilar dependent atelectasis. LIVER T BILIARY TRACT: Cholelithiasis without gross gallbladder distention. Evaluation for pericholecystic inflammation is limited by moderate volume diffuse, most prominent along the pericolic gutters and pelvis. No acute hepatic finding. Gross recanalization of the umbilical vein. ADRENAL GLANDS: Unremarkable. SPLEEN: Splenomegaly to 17.2 cm. PANCREAS: Unremarkable. KIDNEYS/URETERS/BLADDER: No nephrolithiasis, hydronephrosis or perinephric inflammation. Unremarkable ureters and bladder. LYMPH NODES: No suspicious adenopathy. STOMACH, SMALL AND LARGE BOWEL: No acute gastric finding. No small bowel obstruction or gross wall thickening. Normal appendix. No acute colonic finding. ASCITES/FREE AIR: No free fluid or free air. AORTA: Atherosclerosis without ectasia. PELVIS: Unremarkable. MUSCULOSKELETAL: No acute osseous finding. CT/Abdomen/Pelvis without Cont IMPRESSION: Cirrhotic liver with evidence of portal hypertension including gross recanalization of the umbilical vein. Moderate volume diffuse ascites and gross splenomegaly. Cholelithiasis. Gallbladder evaluation is limited due to surrounding ascites. No evidence of bowel obstruction Individualized dose optimization techniques were used for this CT. at 0705 Reported and signed by: Roverto Rojo MD Electronically Signed: Roverto Rojo MD at 7:04 EDT Tel , Service support ,
[2020-09-14 05:15] LABS: ALB/GLOB Ratio 0.7 RATIO (0.9-2.4); AST(SGOT) 66 U/L (15-37); Alanine Aminotransfer ALT/SGPT 44 U/L (16-61); Albumin, Serum 2.5 g/dL (3.2-5.0); Alkaline Phosphatase 117 U/L (45-117); Anion Gap 10 (5-15); BUN 5 mg/dL (7-18); Calcium,Total 7.9 mg/dL (8.5-10.1); Chloride 104 mmol/L (98-107); Creatinine, Serum 0.63 mg/dL (0.70-1.30); EST Glomerular Filtration Rate 139 mL/min (>60); Est Glom Filt Rate - Afr Amer 168 mL/min (>60); Estimated Creatinine Clearance 134.46 ml/min; Globulin 3.8 g/dL (2.2-4.2); Glucose 128 mg/dL (74-106); Potassium 3.8 mmol/L (3.5-5.1); Protein, Total 6.3 g/dL (6.4-8.2); Sodium Level 139 mmol/L (136-145)
[2020-09-14 06:14] VITALS: BP 138/64
[2020-09-14 08:10] VITALS: BP 101/70; PULSE 82; RESP 17; O2SAT 94
[2020-09-14 08:20] VITALS: BP 101/78; PULSE 62; RESP 15; O2SAT 94
[2020-09-14 10:17] LABS: Pathologist Review Reviewed
== END 2020-09-14 08:22 | disposition home or self-care (01) ==
PROVIDERS: Emergency Medicine; Emergency Provider Student in an Organized Health Care Education/Training Program; PCP Family Medicine
DX: R10.9 Unspecified abdominal pain (principal); I10 Essential (primary) hypertension; I73.9 Peripheral vascular disease, unspecified; R18.8 Other ascites; K80.20 Calculus of gallbladder without cholecystitis without obstruction; K76.6 Portal hypertension; R16.1 Splenomegaly, not elsewhere classified; K74.60 Unspecified cirrhosis of liver; Z87.891 Personal history of nicotine dependence
CPT/HCPCS: 74022; 74176; 80053; 85025; 99285; A4216; J2405

== ENCOUNTER 2020-09-21 20:29 | Emergency (ER) | payer OTHER, SELFPAY ==
[2020-09-21 20:31] VITALS: BP 129/76; PULSE 104; RESP 18; TEMP 36.3; O2SAT 94; BMI 28.9
--- NOTE | 2020-09-21 20:58 | RAD_ITS ---
EXAM: XR CHEST, 1 VIEW : 1960 CLINICAL INDICATION: chf TECHNIQUE: Frontal view of the chest. This report was created using [employer] report generation technology. COMPARISON: 09/14/2020 FINDINGS: LUNGS AND PLEURAL SPACES: Unremarkable. No consolidation or edema. No pneumothorax. No effusion. HEART: Unremarkable. Cardiac silhouette not enlarged. MEDIASTINUM: Central airways and mediastinal contour are unremarkable. BONES/JOINTS: Unremarkable. SOFT TISSUES: Unremarkable. RAD/Chest 1 View (Portable) IMPRESSION: No radiographic evidence of acute cardiopulmonary disease. at 2137 Reported and signed by: Robb Gallego MD Electronically Signed: Robb Gallego MD at 21:35 EDT Tel , Service support ,
[2020-09-21 20:59] LABS: Absolute Lymphocyte Count 1.13 X10^3/uL (0.83-4.51); Absolute Neutrophil Count 1.8 X10^3/uL (2.0-7.7); Basophil# 0.02 X10^3/uL; Basophil% 0.6 % (0-1); Eosinophil# 0.05 X10^3/uL; Eosinophils% 1.4 % (0-5); Hematocrit 36.1 % (40-54); Hemoglobin 12.2 g/dL (13.0-16.5); Lymphocyte # 1.13 X10^3/ul (0.83-4.51); Lymphocyte % 31.3 % (19-41); Mean Corp Hgb Conc 33.8 g/dL (32-36); Mean Corpuscular Hgb 34.5 pg (27.0-32.0); Mean Platelet Vol. 10.3 fl (6.2-12.0); Monocyte# 0.56 X10^3/uL; Monocyte% 15.5 % (0-10); NRBC Flagged by Analyzer 0 % (0-5); Neutrophil # 1.84 X10^3/uL (2.7-7.7); Neutrophil % 50.9 % (47-70); POSITIVE COUNT YES; Platelet Count 49 K/mm3 (150-450); RBC Distribution Width CV 16.5 % (11.6-14.6); RBC Distribution Width SD 61.8 fl (35.1-43.9); Red Blood Count 3.54 M/mm3 (4.6-6.2); White Blood Count 3.6 K/mm3 (4.4-11.0)
[2020-09-21 21:07] LABS: Differential Indicated SCAN CRITERIA MET
[2020-09-21 21:19] LABS: AST(SGOT) 69 U/L (15-37); Alanine Aminotransfer ALT/SGPT 38 U/L (16-61); Albumin, Serum 2.6 g/dL (3.2-5.0); Alkaline Phosphatase 93 U/L (45-117); Anion Gap 6 (5-15); BUN 4 mg/dL (7-18); BUN/Creat Ratio 7.5 RATIO (10-20); Bilirubin, Direct 0.77 mg/dL (0.00-0.30); Calcium,Total 7.7 mg/dL (8.5-10.1); Chloride 103 mmol/L (98-107); Creatinine, Serum 0.53 mg/dL (0.70-1.30); EST Glomerular Filtration Rate 169 mL/min (>60); Est Glom Filt Rate - Afr Amer 204 mL/min (>60); Estimated Creatinine Clearance 154.95 ml/min; Glucose 97 mg/dL (74-106); Protein, Total 6.6 g/dL (6.4-8.2); Sodium Level 137 mmol/L (136-145)
[2020-09-21 21:20] LABS: Platelet Estimate MKD DEC (ADEQ); Red Cell Morphology NORM C+C NORMAL (NORM C&C)
--- NOTE | 2020-09-21 21:26 | ED.VIS.LOWEX ---
HPI History of Present Illness Chief Complaint: Edema Informant: patient and EMS Narrative Narrative: 59-year-old male presenting to the emergency department chief complaint of bilateral lower extremity swelling. Patient notes the symptoms this morning. He notes the legs are very painful especially to walk on. From a vascular disease, alcoholic cirrhosis, pancytopenia and tobacco abuse. He denies any shortness of breath. He denies any history of's congestive heart failure. PFSH PFSH Medical History Aortic aneurysm without rupture Benign essential hypertension Chronic pain Diastolic dysfunction Esophageal varices in alcoholic cirrhosis Liver cirrhosis, alcoholic Peripheral arterial disease Smoker Home Medications ferrous sulfate [iron] 325 mg PO DAILY 03/20/18 [History Last Taken 03/11/20] nadolol 40 mg PO DAILY 03/20/18 [History Last Taken 03/11/20] pantoprazole 40 mg PO DAILY 03/20/18 [History Last Taken 03/11/20] spironolactone 25 mg PO DAILY 08/20/18 [History Last Taken 03/11/20] lactulose 10 ml PO TID 03/12/20 [History Last Taken 03/11/20] magnesium oxide 400 mg PO DAILYCM 03/12/20 [History Last Taken 03/11/20] potassium chloride 10 meq PO BID 03/12/20 [History Last Taken 03/11/20] tramadol 50 mg PO Q6H PRN PRN 03/12/20 [History Last Taken Unknown] trazodone 100 mg PO QHS 03/12/20 [History Last Taken 03/11/20] multivitamin,kg-awud-upktoqbl 1 tab PO DAILYCM tab 03/13/20 [Rx Last Taken Unknown] ondansetron 4 mg PO Q8H PRN PRN #10 tab 04/27/20 [Rx Last Taken Unknown] tamsulosin 0.4 mg PO DAILY 07/26/20 [History Last Taken Unknown] benzonatate 100 mg PO BID PRN 09/21/20 [History Last Taken Unknown] hydrocodone-acetaminophen 1 tab PO Q6H PRN PRN 3 Days #12 tablet 09/21/20 [Rx Last Taken Unknown] metoclopramide HCl 10 mg PO 4X/DAY PRN 09/21/20 [History Last Taken Unknown] spironolactone 50 mg PO BID #10 tab 09/21/20 [Rx Last Taken Unknown] Allergy/AdvReac Type Severity Reaction Status Date / Time No Known Allergies Allergy Verified 09/21/20 20:31 Family History Mother Cancer Father Lupus Surgical History History of aortic aneurysm repair Social History household members: none Smoking Status: Former smoker alcohol intake: current alcohol intake frequency: a few times a week substance use type: does not use ROS ROS ED Constitutional Constitutional ED: Denies chills or weight loss Eyes Eyes: Denies change in vision or diplopia ENT ENT ED: Denies ear pain, rhinorrhea or sore throat Cardiovascular Cardiovascular: Denies chest pain, orthopnea, palpitations or racing heartbeat Respiratory/Chest Respiratory/Chest: Denies cough, dyspnea or orthopnea Gastrointestinal Gastrointestinal: Denies abdominal pain, diarrhea, nausea or vomiting Genitourinary Genitourinary ED: Denies dysuria, hematuria or urinary frequency Musculoskeletal Musculoskeletal: Reports other Details: Lower extremity pain and swelling ; Denies arthralgias or myalgias Integumentary Denies abscess or rash Neurologic Neurologic: Denies headache(s) or weakness Psychiatric Psychiatric: Denies anxiety, depression, suicidal ideation or suicidal thoughts Endocrine Endocrinology: Denies polydipsia, polyphagia or polyuria Allergic/Immunologic Allergic/Immunologic ED: Denies mouth swelling, tongue swelling or urticaria EXAM Physical Exam Const Vital Signs: 09/21/20 20:31 09/21/20 20:34 Temperature 97.3 F L Temperature Source Temporal Pulse Rate 104 H Respiratory Rate 18 Respiratory Effort Normal Non-Labored Respiratory Pattern Normal Blood Pressure 129/76 H Blood Pressure Mean 93 Pulse Ox 94 Oxygen Delivery Method Room Air Positive well nourished and well developed General Appearance ED: well developed HEENT Reports normocephalic, head/scalp atraumatic and moist mucous membranes Eyes PERRL and EOMs intact bilaterally Neck no lymphadenopathy, supple and no JVD Resp normal respiratory effort and clear to auscultation bilaterally Cardio regular rate, regular rhythm and no murmurs GI normal to inspection, nondistended, normoactive bowel sounds and non-tender Palpation: soft Back/Spine no CVA tenderness and normal ROM Extremity Extremity Narrative: Patient has bilateral lower extremity pitting edema 2+ to the level of the tibial tuberosity. There is no hair on the lower extremities. There is venous stasis changes. Tender to palpation. General Extremety ED: Yes edema General Extremity: edema Neuro oriented x3 and CN's II-XII intact bilaterally Sensorium / Orientation: alert Motor Exam: strength 5/5 throughout Psych mental status grossly normal Mood & Affect: Negative for depressed or tearful Skin no rashes or lesions noted and no wounds MDM MDM MDM Narrative Medical decision making narrative: Basic blood work shows his chronic pancytopenia. His creatinine is 0.53. Albumin 2.6 globulin 4.0. Patient will be given a dose of Lasix here in the department. My interpretation of his chest x-ray is no acute process. When I have him increase his spironolactone to 50 mg twice a day for the next 5 days. He is to elevate the legs. He may try Ramses wraps or compressive stockings. Follow-up with his primary care early next week Lab Data Attestation: I reviewed the patient's lab results. Labs: Laboratory Results - last 24 hr 09/21/20 09/21/20 20:55 20:55 WBC 3.6 L RBC 3.54 L Hgb 12.2 L Hct 36.1 L MCV 102.0 H MCH 34.5 H MCHC 33.8 RDW Std Deviation 61.8 H RDW Coeff of Delilah 16.5 H Plt Count 49 L* MPV 10.3 Immature Gran % (Auto) 0.300 Neut % (Auto) 50.9 Lymph % (Auto) 31.3 [place] % (Auto) 15.5 H Eos % (Auto) 1.4 Baso % (Auto) 0.6 Absolute Neuts (auto) 1.8 L Absolute Lymphs (auto) 1.13 Nucleated RBC % 0 Platelet Estimate MKD DEC RBC Morphology NORM C+C Sodium 137 Potassium 4.0 Chloride 103 Carbon Dioxide 28.0 Anion Gap 6 BUN 4 L Creatinine 0.53 L Estim Creat Clear Calc 154.95 Est GFR (MDRD) Af Amer 204 Est GFR (MDRD) Non-Af 169 BUN/Creatinine Ratio 7.5 L Glucose 97 Calcium 7.7 L Total Bilirubin 1.10 H Direct Bilirubin 0.77 H AST 69 H ALT 38 Alkaline Phosphatase 93 Total Protein 6.6 Albumin 2.6 L Globulin 4.0 Discharge Plan Triage Chief Complaint: Edema ED Provider: Jose Ramon Dickinson Dx/Rx/DC Orders Clinical Impression: Pancytopenia, PVD (peripheral vascular disease), Cirrhosis, Edema of both lower extremities due to peripheral venous insufficiency Instructions: ED Peripheral Edema, Bilateral Prescriptions: New spironolactone 50 mg tablet 50 mg PO BID Qty: 10 RF: 0 hydrocodone-acetaminophen [hydrocodone-acetaminophen] 1 TABLET tablet 1 tab PO Q6H PRN PRN (Reason: Pain) 3 Days Qty: 12 RF: 0 No Action nadolol 20 MG tablet 40 mg PO DAILY RF: 0 pantoprazole 40 MG tablet,delayed release (DR/EC) 40 mg PO DAILY RF: 0 ferrous sulfate [iron] 325 MG tablet 325 mg PO DAILY RF: 0 spironolactone 25 MG tablet 25 mg PO DAILY RF: 0 tramadol 50 MG tablet 50 mg PO Q6H PRN PRN (Reason: Pain Score 1-10) RF: 0 potassium chloride 10 MEQ tablet extended release 10 meq PO BID RF: 0 magnesium oxide 400 MG tablet 400 mg PO DAILYCM RF: 0 trazodone 100 MG tablet 100 mg PO QHS RF: 0 lactulose 10 GM/15 ML solution 10 ml PO TID RF: 0 multivitamin,zn-rbxu-cbvhejok 1 TABLET tablet 1 tab PO DAILYCM RF: 0 ondansetron 4 MG tablet 4 mg PO Q8H PRN PRN (Reason: Nausea) Qty: 10 RF: 0 tamsulosin 0.4 mg Capsule 0.4 mg PO DAILY RF: 0 benzonatate 100 mg Capsule 100 mg PO BID PRN (Reason: Cough) RF: 0 metoclopramide HCl [metoclopramide HCl] 10 MG tablet 10 mg PO 4X/DAY PRN (Reason: Nausea) RF: 0 Primary Care Provider: Alice Cuellar Referrals: Alice Cuellar DO [Primary Care Provider] - 5-7 Days Disposition Disposition: Home, Self Care
[2020-09-21] MEDS: Furosemide 100 MG/10 ML Vial 60 MG IV (21:37)
[2020-09-24 12:31] LABS: Pathologist Review Reviewed
== END 2020-09-21 21:46 | disposition home or self-care (01) ==
PROVIDERS: Emergency Provider Emergency Medicine; PCP Family Medicine
DX: I87.2 Venous insufficiency (chronic) (peripheral) (principal); I73.9 Peripheral vascular disease, unspecified; D61.818 Other pancytopenia; I10 Essential (primary) hypertension; K74.60 Unspecified cirrhosis of liver; Z87.891 Personal history of nicotine dependence; Z86.79 Personal history of other diseases of the circulatory system
CPT/HCPCS: 71045; 80048; 80076; 85025; 99285; A4216; J1940

== ENCOUNTER 2020-10-14 21:03 | Emergency (ER) | payer OTHER, SELFPAY ==
[2020-10-14 21:04] VITALS: BP 122/70; PULSE 90; RESP 18; TEMP 36.7; O2SAT 93; BMI 25.1
[2020-10-14 21:20] LABS: Bacteria 0 SEEN /hpf (None Seen); Mucous, Urine 0 SEEN /hpf (<or=2+); Red Blood Cells-Urine 0 SEEN /hpf (0-5); White Blood Cells 0 SEEN /hpf (0-5)
[2020-10-14 21:25] LABS: Color, Urine Yellow (Yellow); Glucose, Dipstick Normal (Normal); Ketone-Dipstick Negative (Negative); Leukocyte Esterase-Dipstick 25 /ul (Negative); Nitrite-Dipstick Negative (Negative); Occult Blood-Urine Negative /ul (Negative); Protein-Dipstick Negative (Negative); Specific Gravity, Urine 1.015 (1.002-1.030); Urine Bilirubin Dipstick Negative (Negative); Urine Clarity Clear (Clear); Urine Urobilinogen Normal (Normal)
[2020-10-14 21:43] LABS: Squamous Epithelial Cells - UA 0-5 SEEN /hpf (0-5)
--- NOTE | 2020-10-14 22:16 | US_ITS ---
STUDY: ABDOMINAL ULTRASOUND - RIGHT UPPER QUADRANT REASON FOR VISIT: Male, 59 years old RUQ pain TECHNIQUE: Ultrasound evaluation of the right upper quadrant was performed with real-time and static gomez-scale imaging. TECHNICAL QUALITY: Limited. Examination limited by bowel gas. COMPARISON: 02/07/2014. FINDINGS: Liver: The liver measures 16.8 cm. There is increased echogenicity consistent with fatty infiltration. The bile ducts are within normal limits. There is hepatic color flow. The direction of portal flow is hepatopetal. There is no demonstrated mass lesion. Gallbladder: Normal distended gallbladder. The gallbladder wall measures 3.4 mm. There is a positive sonographic Beatty''s sign. There is no pericholecystic fluid. There are multiple echogenic structures within the gallbladder, consistent with multiple gallstones. Common Bile Duct (C.B.D.): The common bile duct measures 3.0 mm. Pancreas: Normal size of the body with partial obscuration of the head tail of the pancreas. There is normal echogenicity of the visualized pancreas. There is no demonstrated pancreatic mass or cyst in the visualized portion. Right Kidney: Normal size of the right kidney. The right kidney measures 11.4 x 6.7 x 5.9 cm. Normal renal cortex. The right cortex measures 2.4 cm. There is no demonstrated renal mass or cyst. There is no right hydronephrosis. US/Gallbladder IMPRESSION: Multiple gallstones the bladder wall and positive Beatty''s sign, cannot exclude acute cholecystitis. If this represents a clinical concern, recommend follow-up with HIDA scan. Remainder of the right upper quadrant ultrasound unremarkable. Electronically Signed: Karen Easley MD at 0:53 EDT , Service support ,
--- NOTE | 2020-10-14 22:16 | ED.VIS.GI ---
HPI HPI - GI History of Present Illness Chief Complaint: Abd Pain Narrative Narrative: 59-year-old male presenting with right upper quadrant pain. He states it started hurting worse about an hour ago. Patient has reportedly a several month history of this pain. He was seen at [facility] and he states that Dr. Rivera told him that he was too high risk to have surgery here. He was referred to [facility] and [facility] who both deferred him further. He is told to go to [place] or [facility] about a week and a half ago. He has not made these phone calls. Patient states that he has a history of alcohol abuse and states he will drink about 4 beers a week currently. Patient also does have a history of esophageal varices, alcoholic cirrhosis, ascites, peripheral vascular disease, thrombocytopenia. PFSH PFSH Medical History Aortic aneurysm without rupture Benign essential hypertension Chronic pain Diastolic dysfunction Esophageal varices in alcoholic cirrhosis Liver cirrhosis, alcoholic Peripheral arterial disease Smoker Home Medications ferrous sulfate [iron] 325 mg PO DAILY 03/20/18 [History Last Taken 03/11/20] nadolol 40 mg PO DAILY 03/20/18 [History Last Taken 03/11/20] pantoprazole 40 mg PO DAILY 03/20/18 [History Last Taken 03/11/20] spironolactone 25 mg PO DAILY 08/20/18 [History Last Taken 03/11/20] lactulose 10 ml PO TID 03/12/20 [History Last Taken 03/11/20] magnesium oxide 400 mg PO DAILYCM 03/12/20 [History Last Taken 03/11/20] potassium chloride 10 meq PO BID 03/12/20 [History Last Taken 03/11/20] tramadol 50 mg PO Q6H PRN PRN 03/12/20 [History Last Taken Unknown] trazodone 100 mg PO QHS 03/12/20 [History Last Taken 03/11/20] multivitamin,xn-zpnv-cwcnqwfl 1 tab PO DAILYCM tab 03/13/20 [Rx Last Taken Unknown] ondansetron 4 mg PO Q8H PRN PRN #10 tab 04/27/20 [Rx Last Taken Unknown] tamsulosin 0.4 mg PO DAILY 07/26/20 [History Last Taken Unknown] benzonatate 100 mg PO BID PRN 09/21/20 [History Last Taken Unknown] hydrocodone-acetaminophen 1 tab PO Q6H PRN PRN 3 Days #12 tablet 09/21/20 [Rx Last Taken Unknown] metoclopramide HCl 10 mg PO 4X/DAY PRN 09/21/20 [History Last Taken Unknown] spironolactone 50 mg PO BID #10 tab 09/21/20 [Rx Last Taken Unknown] Allergy/AdvReac Type Severity Reaction Status Date / Time No Known Allergies Allergy Verified 10/14/20 21:06 Family History Mother Cancer Father Lupus Surgical History History of aortic aneurysm repair Social History household members: none Smoking Status: Former smoker alcohol intake: current alcohol intake frequency: a few times a week substance use type: does not use ROS ROS ED Constitutional Constitutional ED: Denies chills or fever(s) ENT ENT ED: Denies rhinorrhea or sore throat Cardiovascular Cardiovascular: Denies chest pain or palpitations Respiratory/Chest Respiratory/Chest: Denies cough, dyspnea or sputum Gastrointestinal Gastrointestinal: Reports abdominal pain and nausea Genitourinary Genitourinary ED: Denies dysuria or hematuria Musculoskeletal Musculoskeletal: Denies arthralgias, back pain, myalgias or neck pain Integumentary Denies abscess or rash Neurologic Neurologic: Denies headache(s) or paresthesias EXAM Physical Exam Const Vital Signs: 10/14/20 21:04 10/15/20 00:15 10/15/20 02:10 Temperature 98.0 F Temperature Source Temporal Pulse Rate 90 73 77 Respiratory Rate 18 16 16 Blood Pressure 122/70 H 130/66 H 106/42 L Blood Pressure Mean 87 87 63 Pulse Ox 93 97 99 Oxygen Delivery Method Room Air Positive well nourished General Appearance ED: NAD; Negative for pallor HEENT Reports moist mucous membranes normocephalic and atraumatic Eyes PERRL and EOMs intact bilaterally General Eye ED: Negative for pale conjunctiva or scleral icterus Resp normal respiratory effort and clear to auscultation bilaterally Cardio regular rate and regular rhythm Neuro Sensorium / Orientation: alert, oriented to person, oriented to place and oriented to time Skin General Skin Exam: Negative for jaundice or pallor Lesions: no lesions Rashes: no rashes MDM MDM MDM Narrative Medical decision making narrative: Patient presenting with right upper quadrant pain which appears to be an acute on chronic issue. I did obtain lab work and he has no leukocytosis and in fact his white blood cell count is 4.9. There is no left shift. Hemoglobin hematocrit are stable. Renal function and electrolytes appear normal. Total bilirubin is 1.3 but has been as high as 1.9 in the past. Direct bilirubin shows a similar pattern. AST is slightly elevated at 72. Patient's pain is improved with morphine and Zofran. Patient has a positive sonographic Beatty sign however there is no pericholecystic fluid, wall thickening, common bile duct dilation. Patient seems more comfortable. It does appear that he supposed to go to an unknown facility in [place] or [facility]. Although the patient is symptomatic this is a chronic issue. I did offer to call [facility] or a facility in [place] however at this time he wants to go home. I counseled him that in the morning he should call those facilities and try to obtain follow-up given that his need of care is higher than we can handle here at [place]. He was given return precautions if he starts having worsening symptoms he was counseled he can return here if he needs to. Impression: 1. Cholelithiasis 2. History of cirrhosis Lab Data Labs: Laboratory Results - last 24 hr 10/14/20 10/14/20 10/14/20 21:15 21:30 21:30 WBC 4.9 RBC 4.12 L Hgb 14.2 Hct 42.0 MCV 101.9 H MCH 34.5 H MCHC 33.8 RDW Std Deviation 57.6 H RDW Coeff of Delilah 15.3 H Plt Count 61 L MPV 10.8 Immature Gran % (Auto) 0.200 Neut % (Auto) 44.5 L Lymph % (Auto) 32.9 [place] % (Auto) 21.8 H Eos % (Auto) 0.4 Baso % (Auto) 0.2 Absolute Neuts (auto) 2.2 Absolute Lymphs (auto) 1.61 Nucleated RBC % 0 Differential Comment SCANNED Platelet Estimate MOD DEC PT INR Sodium 134 L Potassium 4.0 Chloride 102 Carbon Dioxide 25.0 Anion Gap 7 BUN 8 Creatinine 0.51 L Estim Creat Clear Calc 166.10 Est GFR (MDRD) Af Amer 215 Est GFR (MDRD) Non-Af 178 BUN/Creatinine Ratio 15.8 Glucose 124 H Calcium 8.5 Magnesium 1.6 Total Bilirubin 1.30 H Direct Bilirubin 0.65 H AST 72 H ALT 46 Alkaline Phosphatase 103 Total Protein 7.6 Albumin 3.1 L Globulin 4.5 H Urine Color Yellow Urine Clarity Clear Urine pH 6.0 Ur Specific [place] 1.015 Urine Protein Negative Urine Glucose (UA) Normal Urine Ketones Negative Urine Occult Blood Negative Urine Nitrite Negative Urine Bilirubin Negative Urine Urobilinogen Normal Ur Leukocyte Esterase 25 H Urine RBC 0 SEEN Urine WBC 0 SEEN Ur Squamous Epith Cells 0-5 SEEN Urine Bacteria 0 SEEN Urine Mucus 0 SEEN Ethyl Alcohol 10/14/20 10/14/20 23:18 23:18 WBC RBC Hgb Hct MCV MCH MCHC RDW Std Deviation RDW Coeff of Delilah Plt Count MPV Immature Gran % (Auto) Neut % (Auto) Lymph % (Auto) [place] % (Auto) Eos % (Auto) Baso % (Auto) Absolute Neuts (auto) Absolute Lymphs (auto) Nucleated RBC % Differential Comment Platelet Estimate PT 16.6 H INR 1.4 Sodium Potassium Chloride Carbon Dioxide Anion Gap BUN Creatinine Estim Creat Clear Calc Est GFR (MDRD) Af Amer Est GFR (MDRD) Non-Af BUN/Creatinine Ratio Glucose Calcium Magnesium Total Bilirubin Direct Bilirubin AST ALT Alkaline Phosphatase Total Protein Albumin Globulin Urine Color Urine Clarity Urine pH Ur Specific [place] Urine Protein Urine Glucose (UA) Urine Ketones Urine Occult Blood Urine Nitrite Urine Bilirubin Urine Urobilinogen Ur Leukocyte Esterase Urine RBC Urine WBC Ur Squamous Epith Cells Urine Bacteria Urine Mucus Ethyl Alcohol 154.0 Radiography Diagnostic Testing: Radiology Impression Gallbladder Ultrasound 10/14/20 22:16 IMPRESSION: Multiple gallstones the bladder wall and positive Beatty''s sign, cannot exclude acute cholecystitis. If this represents a clinical concern, recommend follow-up with HIDA scan. Remainder of the right upper quadrant ultrasound unremarkable. Electronically Signed: Karen Easley MD at 0:53 EDT , Service support , Discharge Plan Triage Chief Complaint: Abd Pain ED Provider: Orlando Adames Dx/Rx/DC Orders Instructions: ED Gallstones with Biliary Colic Prescriptions: No Action nadolol 20 MG tablet 40 mg PO DAILY RF: 0 pantoprazole 40 MG tablet,delayed release (DR/EC) 40 mg PO DAILY RF: 0 ferrous sulfate [iron] 325 MG tablet 325 mg PO DAILY RF: 0 spironolactone 25 MG tablet 25 mg PO DAILY RF: 0 tramadol 50 MG tablet 50 mg PO Q6H PRN PRN (Reason: Pain Score 1-10) RF: 0 potassium chloride 10 MEQ tablet extended release 10 meq PO BID RF: 0 magnesium oxide 400 MG tablet 400 mg PO DAILYCM RF: 0 trazodone 100 MG tablet 100 mg PO QHS RF: 0 lactulose 10 GM/15 ML solution 10 ml PO TID RF: 0 multivitamin,vs-kevx-zonmypqc 1 TABLET tablet 1 tab PO DAILYCM RF: 0 ondansetron 4 MG tablet 4 mg PO Q8H PRN PRN (Reason: Nausea) Qty: 10 RF: 0 tamsulosin 0.4 mg Capsule 0.4 mg PO DAILY RF: 0 benzonatate 100 mg Capsule 100 mg PO BID PRN (Reason: Cough) RF: 0 metoclopramide HCl [metoclopramide HCl] 10 MG tablet 10 mg PO 4X/DAY PRN (Reason: Nausea) RF: 0 spironolactone 50 mg tablet 50 mg PO BID Qty: 10 RF: 0 hydrocodone-acetaminophen [hydrocodone-acetaminophen] 1 TABLET tablet 1 tab PO Q6H PRN PRN (Reason: Pain) 3 Days Qty: 12 RF: 0 Primary Care Provider: Alice Cuellar Referrals: Alice Cuellar DO [Primary Care Provider] - Disposition Disposition: Home, Self Care Discharge Date/Time: 10/15/20 02:10
[2020-10-14 22:25] LABS: Absolute Lymphocyte Count 1.61 X10^3/uL (0.83-4.51); Absolute Neutrophil Count 2.2 X10^3/uL (2.0-7.7); Basophil# 0.01 X10^3/uL; Basophil% 0.2 % (0-1); Eosinophil# 0.02 X10^3/uL; Eosinophils% 0.4 % (0-5); Hemoglobin 14.2 g/dL (13.0-16.5); Lymphocyte # 1.61 X10^3/ul (0.83-4.51); Lymphocyte % 32.9 % (19-41); Mean Corp Hgb Conc 33.8 g/dL (32-36); Mean Corpuscular Hgb 34.5 pg (27.0-32.0); Mean Corpuscular Volume 101.9 fL (80-94); Mean Platelet Vol. 10.8 fl (6.2-12.0); Monocyte# 1.07 X10^3/uL; Monocyte% 21.8 % (0-10); NRBC Flagged by Analyzer 0 % (0-5); Neutrophil # 2.18 X10^3/uL (2.7-7.7); Neutrophil % 44.5 % (47-70); POSITIVE COUNT YES; Platelet Count 61 K/mm3 (150-450); RBC Distribution Width CV 15.3 % (11.6-14.6); RBC Distribution Width SD 57.6 fl (35.1-43.9); Red Blood Count 4.12 M/mm3 (4.6-6.2); White Blood Count 4.9 K/mm3 (4.4-11.0)
[2020-10-14 22:33] LABS: AST(SGOT) 72 U/L (15-37); Alanine Aminotransfer ALT/SGPT 46 U/L (16-61); Albumin, Serum 3.1 g/dL (3.2-5.0); Alkaline Phosphatase 103 U/L (45-117); Anion Gap 7 (5-15); BUN 8 mg/dL (7-18); BUN/Creat Ratio 15.8 RATIO (10-20); Bilirubin, Direct 0.65 mg/dL (0.00-0.30); Calcium,Total 8.5 mg/dL (8.5-10.1); Chloride 102 mmol/L (98-107); Creatinine, Serum 0.51 mg/dL (0.70-1.30); Differential Indicated SCAN CRITERIA MET; EST Glomerular Filtration Rate 178 mL/min (>60); Est Glom Filt Rate - Afr Amer 215 mL/min (>60); Globulin 4.5 g/dL (2.2-4.2); Glucose 124 mg/dL (74-106); Magnesium 1.6 mg/dL (1.6-2.6); Protein, Total 7.6 g/dL (6.4-8.2); Sodium Level 134 mmol/L (136-145)
[2020-10-14] MEDS: Ondansetron 4 MG/2 ML Vial IV (22:40)
[2020-10-14] MEDS: Morphine 4 MG/ML Syringe IV (22:40)
[2020-10-14 22:46] LABS: Differential Comment SCANNED; Platelet Estimate MOD DEC (ADEQ)
[2020-10-14 23:39] LABS: International Normalized Ratio 1.4; Prothrombin Time (Protime)PT. 16.6 SECONDS (11.7-14.9)
[2020-10-15 00:15] VITALS: BP 130/66; PULSE 73; RESP 16; O2SAT 97
[2020-10-15 02:10] VITALS: BP 106/42; PULSE 77; RESP 16; O2SAT 99
== END 2020-10-15 02:10 | disposition home or self-care (01) ==
PROVIDERS: Emergency Provider Student in an Organized Health Care Education/Training Program; PCP Family Medicine
DX: R10.9 Unspecified abdominal pain (principal); K80.20 Calculus of gallbladder without cholecystitis without obstruction; Z86.79 Personal history of other diseases of the circulatory system; Z87.891 Personal history of nicotine dependence; I10 Essential (primary) hypertension; I73.9 Peripheral vascular disease, unspecified
CPT/HCPCS: 76705; 80048; 80076; 81001; 82077; 83735; 85025; 85610; 96374; 96375; 99283; J7030; J2405

== ENCOUNTER 2020-10-17 07:06 | Emergency (ER) | payer OTHER, SELFPAY ==
[2020-10-17] VITALS (11 sets, daily range): BP systolic 105–138; BP diastolic 49–88; PULSE 79–115; RESP 14–20; TEMP 36.1–36.9; O2SAT 94–99; BMI 26.2
[2020-10-17] MEDS: fentaNYL 100 MCG/2 ML Ampul 25 MCG IV (07:54)
[2020-10-17] MEDS: Ondansetron 4 MG/2 ML Vial IV ×2 (07:54→11:00)
[2020-10-17] MEDS: 0.9% Normal Saline 1,000 ML 1000 ML IV (07:54)
[2020-10-17 07:57] LABS: Absolute Lymphocyte Count 1.31 X10^3/uL (0.83-4.51); Absolute Neutrophil Count 2.2 X10^3/uL (2.0-7.7); Basophil# 0.02 X10^3/uL; Basophil% 0.4 % (0-1); Eosinophil# 0.02 X10^3/uL; Eosinophils% 0.4 % (0-5); Hematocrit 38.7 % (40-54); Hemoglobin 13.5 g/dL (13.0-16.5); Lymphocyte # 1.31 X10^3/ul (0.83-4.51); Mean Corp Hgb Conc 34.9 g/dL (32-36); Mean Corpuscular Hgb 34.9 pg (27.0-32.0); Mean Platelet Vol. 10.8 fl (6.2-12.0); Monocyte# 0.98 X10^3/uL; Monocyte% 21.7 % (0-10); NRBC Flagged by Analyzer 0 % (0-5); Neutrophil # 2.17 X10^3/uL (2.7-7.7); Neutrophil % 48.3 % (47-70); POSITIVE COUNT YES; Platelet Count 54 K/mm3 (150-450); RBC Distribution Width CV 15.2 % (11.6-14.6); RBC Distribution Width SD 55.7 fl (35.1-43.9); Red Blood Count 3.87 M/mm3 (4.6-6.2); White Blood Count 4.5 K/mm3 (4.4-11.0)
[2020-10-17 08:00] LABS: International Normalized Ratio 1.4
--- NOTE | 2020-10-17 08:00 | EX.ED.DYSGE1 ---
HPI History of Present Illness Chief Complaint: Nausea/Vomiting Informant: patient Onset/Context/Timing Onset: Today Narrative Narrative: Patient presents via EMS secondary to vomiting blood. He has a history of cirrhosis and esophageal varices. Patient was recently seen with upper abdominal pain. He is noted to have gallstones. On last ultrasound there was evidence of gallbladder wall thickening, but no pericholecystic fluid and normal labs. Patient had been told previously he was too high risk for surgery here. He had been told by one of the hospitals in [place] that he needed to go to [place] or [place]. He has not yet made this phone calls. Patient states this morning he woke up vomiting blood. He still complains of upper abdominal pain. No fever or chills. PFSH PFSH Medical History Aortic aneurysm without rupture Benign essential hypertension Chronic pain Diastolic dysfunction Esophageal varices in alcoholic cirrhosis Liver cirrhosis, alcoholic Peripheral arterial disease Smoker Home Medications ferrous sulfate [iron] 325 mg PO DAILY 03/20/18 [History Last Taken 03/11/20] nadolol 40 mg PO DAILY 03/20/18 [History Last Taken 03/11/20] pantoprazole 40 mg PO DAILY 03/20/18 [History Last Taken 03/11/20] spironolactone 25 mg PO DAILY 08/20/18 [History Last Taken 03/11/20] lactulose 10 ml PO TID 03/12/20 [History Last Taken 03/11/20] magnesium oxide 400 mg PO DAILYCM 03/12/20 [History Last Taken 03/11/20] potassium chloride 10 meq PO BID 03/12/20 [History Last Taken 03/11/20] tramadol 50 mg PO Q6H PRN PRN 03/12/20 [History Last Taken Unknown] trazodone 100 mg PO QHS 03/12/20 [History Last Taken 03/11/20] multivitamin,zo-wsni-lynsakdt 1 tab PO DAILYCM tab 03/13/20 [Rx Last Taken Unknown] ondansetron 4 mg PO Q8H PRN PRN #10 tab 04/27/20 [Rx Last Taken Unknown] tamsulosin 0.4 mg PO DAILY 07/26/20 [History Last Taken Unknown] benzonatate 100 mg PO BID PRN 09/21/20 [History Last Taken Unknown] hydrocodone-acetaminophen 1 tab PO Q6H PRN PRN 3 Days #12 tablet 09/21/20 [Rx Last Taken Unknown] metoclopramide HCl 10 mg PO 4X/DAY PRN 09/21/20 [History Last Taken Unknown] spironolactone 50 mg PO BID #10 tab 09/21/20 [Rx Last Taken Unknown] Allergy/AdvReac Type Severity Reaction Status Date / Time No Known Allergies Allergy Verified 10/17/20 07:12 Family History Mother Cancer Father Lupus Surgical History History of aortic aneurysm repair Social History household members: none Smoking Status: Former smoker alcohol intake: current alcohol intake frequency: a few times a week substance use type: does not use ROS ROS ED Constitutional Constitutional ED: Denies chills or fever(s) Eyes Eyes: Denies change in vision ENT ENT ED: Denies sore throat Cardiovascular Cardiovascular: Denies chest pain Respiratory/Chest Respiratory/Chest: Denies cough or dyspnea Gastrointestinal Gastrointestinal: Reports abdominal pain, nausea and vomiting; Denies diarrhea Genitourinary Genitourinary ED: Denies dysuria Integumentary Denies rash Neurologic Neurologic: Reports weakness; Denies headache(s) Psychiatric Psychiatric: Denies anxiety or depression Allergic/Immunologic Allergic/Immunologic ED: Denies urticaria EXAM Physical Exam Const Vital Signs: 10/17/20 07:08 10/17/20 09:07 Temperature 96.9 F L Temperature Source Temporal Pulse Rate 115 H 100 Respiratory Rate 16 16 Blood Pressure 134/88 H 125/82 H Blood Pressure Mean 103 96 Pulse Ox 94 99 Oxygen Delivery Method Room Air Positive well nourished and well developed General Appearance ED: well developed HEENT Reports normocephalic and head/scalp atraumatic Eyes PERRL and EOMs intact bilaterally Neck supple Chest Wall inspection of chest normal and palpation of chest normal Resp normal respiratory effort and clear to auscultation bilaterally Cardio regular rhythm Rate: tachycardic GI Auscultation: normoactive bowel sounds Palpation: soft and tender other (Mild upper abdominal tenderness palpation. No guarding or rebound.) Back/Spine no CVA tenderness Extremity normal to inspection Neuro oriented x3 and no sensory deficits noted Sensorium / Orientation: alert Motor Exam: strength 5/5 throughout Psych mental status grossly normal Skin no rashes or lesions noted MDM MDM MDM Narrative Medical decision making narrative: Patient was given antiemetics, IV fluids. Lab work obtained. Lab Data Attestation: I reviewed the patient's lab results. Labs: Laboratory Results - last 24 hr 10/17/20 10/17/20 10/17/20 07:15 07:15 07:45 WBC 4.5 RBC 3.87 L Hgb 13.5 Hct 38.7 L MCV 100.0 H MCH 34.9 H MCHC 34.9 RDW Std Deviation 55.7 H RDW Coeff of Delilah 15.2 H Plt Count 54 L MPV 10.8 Immature Gran % (Auto) 0.200 Neut % (Auto) 48.3 Lymph % (Auto) 29.0 [place] % (Auto) 21.7 H Eos % (Auto) 0.4 Baso % (Auto) 0.4 Absolute Neuts (auto) 2.2 Absolute Lymphs (auto) 1.31 Nucleated RBC % 0 Differential Comment COMMENT Diff Path Review May foll PT 16.0 H INR 1.4 APTT 38.2 H Sodium 138 Potassium 3.9 Chloride 102 Carbon Dioxide 26.0 Anion Gap 10 BUN 10 Creatinine 0.41 L Estim Creat Clear Calc 206.62 Est GFR (MDRD) Af Amer 278 Est GFR (MDRD) Non-Af 229 BUN/Creatinine Ratio 24.6 H Glucose 135 H Calcium 8.7 Total Bilirubin 0.90 Direct Bilirubin 0.52 H AST 81 H ALT 54 Alkaline Phosphatase 101 Total Protein 7.2 Albumin 3.0 L Globulin 4.2 Lipase 343 Treatment and Re-Evaluation Comments:: Patient has been redosed 3 times with antiemetics. He will continue to have intermittent bloody emesis. Patient discussed with Tano Keenan and accepted in transfer to the MICU. I will try another H&H at this time. We did attempt to place NG tube the patient was unable to tolerate. Vital signs have remained stable thus far. Discharge Plan Triage Chief Complaint: Nausea/Vomiting ED Provider: Anika Taveras Dx/Rx/DC Orders Clinical Impression: Acute upper gastrointestinal bleeding, History of esophageal varices Prescriptions: No Action nadolol 20 MG tablet 40 mg PO DAILY RF: 0 pantoprazole 40 MG tablet,delayed release (DR/EC) 40 mg PO DAILY RF: 0 ferrous sulfate [iron] 325 MG tablet 325 mg PO DAILY RF: 0 spironolactone 25 MG tablet 25 mg PO DAILY RF: 0 tramadol 50 MG tablet 50 mg PO Q6H PRN PRN (Reason: Pain Score 1-10) RF: 0 potassium chloride 10 MEQ tablet extended release 10 meq PO BID RF: 0 magnesium oxide 400 MG tablet 400 mg PO DAILYCM RF: 0 trazodone 100 MG tablet 100 mg PO QHS RF: 0 lactulose 10 GM/15 ML solution 10 ml PO TID RF: 0 multivitamin,zg-wqpl-jxkcutvt 1 TABLET tablet 1 tab PO DAILYCM RF: 0 ondansetron 4 MG tablet 4 mg PO Q8H PRN PRN (Reason: Nausea) Qty: 10 RF: 0 tamsulosin 0.4 mg Capsule 0.4 mg PO DAILY RF: 0 benzonatate 100 mg Capsule 100 mg PO BID PRN (Reason: Cough) RF: 0 metoclopramide HCl [metoclopramide HCl] 10 MG tablet 10 mg PO 4X/DAY PRN (Reason: Nausea) RF: 0 spironolactone 50 mg tablet 50 mg PO BID Qty: 10 RF: 0 hydrocodone-acetaminophen [hydrocodone-acetaminophen] 1 TABLET tablet 1 tab PO Q6H PRN PRN (Reason: Pain) 3 Days Qty: 12 RF: 0 Primary Care Provider: Alice Cuellar Referrals: Alice Cuellar DO [Primary Care Provider] - Disposition Disposition: Acute Care Hospital Discharge Location: [facility]
[2020-10-17 08:01] LABS: Partial Thromboplast Time 38.2 Seconds (24.1-36.2)
[2020-10-17 08:12] LABS: AST(SGOT) 81 U/L (15-37); Alanine Aminotransfer ALT/SGPT 54 U/L (16-61); Alkaline Phosphatase 101 U/L (45-117); Anion Gap 10 (5-15); BUN 10 mg/dL (7-18); BUN/Creat Ratio 24.6 RATIO (10-20); Bilirubin, Direct 0.52 mg/dL (0.00-0.30); Calcium,Total 8.7 mg/dL (8.5-10.1); Chloride 102 mmol/L (98-107); Creatinine, Serum 0.41 mg/dL (0.70-1.30); EST Glomerular Filtration Rate 229 mL/min (>60); Est Glom Filt Rate - Afr Amer 278 mL/min (>60); Estimated Creatinine Clearance 206.62 ml/min; Globulin 4.2 g/dL (2.2-4.2); Glucose 135 mg/dL (74-106); Lipase 343 U/L (73-393); Potassium 3.9 mmol/L (3.5-5.1); Protein, Total 7.2 g/dL (6.4-8.2); Sodium Level 138 mmol/L (136-145)
[2020-10-17 08:13] LABS: Differential Indicated SCAN CRITERIA MET
[2020-10-17] MEDS: DiphenhydrAMINE 50 MG/ML Syringe 25 MG IV (08:38)
[2020-10-17] MEDS: Metoclopramide 10 MG/2 ML Vial IV (08:38)
[2020-10-17] MEDS: proMETHazine 25 MG/ML Syringe 12.5 MG IM (09:59)
[2020-10-17] MEDS: Lidocaine 4% 5 ML Ampul 2 ML INHALATION (10:05)
[2020-10-17] MEDS: Oxymetazoline 0.05% 1 SPRAY SPRAY.BTL 2 SPRAY NASAL (10:05)
--- NOTE | 2020-10-17 10:28 | NURSING ---
NGT attempted, unable to pass through RT nares. Attempted through LT nares, was able to pass down without difficulty but pt then started coughing non stop. sats 100%. pt continues to cough and started having some blood out his nose & mouth. NGT removed and Dr Taveras notified.
[2020-10-17] MEDS: 0.9% Normal Saline 1,000 ML 150 ML IV ×2 (10:59→15:46)
[2020-10-17] MEDS: Metoclopramide 10 MG/2 ML Vial 5 MG IV (11:00)
[2020-10-17 12:03] LABS: Hematocrit 34.6 % (40-54)
[2020-10-17] MEDS: proMETHazine 25 MG/ML Syringe IM (13:54)
[2020-10-17] MEDS: Morphine 4 MG/ML Syringe IV ×2 (14:22→16:06)
--- NOTE | 2020-10-17 19:30 | ED.RN ---
THIS RN CALLED [facility] TRANSFER LINE TO DETERMINE HOW LONG UNTIL THE BED WILL BE READY TO CONSIDER [facility] ADMISSION UNTIL BED OPEN. TRANSFER LINE STATES HE IS ASSIGNED AN OPEN BED IN THE MICU AND THEY WILL CALL BACK WHEN THE ROOM IS FINISHED BEING CLEANED.
--- NOTE | 2020-10-17 22:46 | ED.RN ---
ATTEMPTED TO CALL REPORT TO [facility], NO ANSWER
[2020-10-18 00:07] VITALS: BP 121/60; PULSE 70; RESP 16; O2SAT 99
--- NOTE | 2020-10-18 00:34 | ED.RN ---
ATTEMPTED TO CALL REPORT TO [facility]. NO ANSWER
[2020-10-18 11:47] LABS: Pathologist Review Reviewed
== END 2020-10-18 00:41 | disposition short-term general hospital (02) ==
PROVIDERS: Emergency Provider Emergency Medicine; PCP Family Medicine
DX: K92.2 Gastrointestinal hemorrhage, unspecified (principal); Z86.79 Personal history of other diseases of the circulatory system; Z87.891 Personal history of nicotine dependence; I10 Essential (primary) hypertension; I73.9 Peripheral vascular disease, unspecified
CPT/HCPCS: 80048; 80076; 83690; 85014; 85018; 85025; 85610; 85730; 87426; 94640; 96361; 96372; 96374; 96375; 96376; 99285; J7030; A4216; J2405; J3490

== ENCOUNTER 2020-10-23 12:17 | Emergency (ER) | payer OTHER, SELFPAY ==
[2020-10-23 12:18] VITALS: BP 148/59; PULSE 76; RESP 10; TEMP 36.7; O2SAT 99; BMI 25.8
--- NOTE | 2020-10-23 13:00 | EDS_ITS ---
HPI HPI - GI History of Present Illness Chief Complaint: Nausea/Vomiting Informant: patient Abdominal Pain/Flank Pain Onset: Today Context: - (Awoke with symptoms that have been intermittent for the past week) Timing: Continuous Quality: - (Severe nausea) Current Severity: Severe Maximum Severity: Severe Worsened by: Nothing Relieved by: Nothing (Tried Zofran did not help) Nausea/Vomiting/Emesis GI Symptom: Positive for Nausea; Negative for Vomiting Onset: Today Diarrhea/Melena/Hematochezia GI Symptom: Positive for - (Stools always blocked due to lactulose no blood); Negative for Diarrhea, Melena and Hematochezia Associated Symptoms Associated Symptoms: Negative for Dysuria, Frequency, Hematuria and Urgency Narrative Narrative: Patient with a history of cirrhosis states he just was discharged from [facility] yesterday where he was for almost a week because of hematemesis. He states they did do an EGD and did not find anything to band. He has no idea what they did find. He states he woke up today with severe nausea that was not better with Zofran, he has not vomited, and presents for this. He has epigastric discomfort which he has also had for the past week. He states he has no new symptoms compared with his recent admission for the past week. PFSH PFSH Medical History Aortic aneurysm without rupture Benign essential hypertension Chronic pain Diastolic dysfunction Esophageal varices in alcoholic cirrhosis Liver cirrhosis, alcoholic Peripheral arterial disease Smoker Home Medications ferrous sulfate [iron] 325 mg PO DAILY 03/20/18 [History Last Taken 03/11/20] nadolol 40 mg PO DAILY 03/20/18 [History Last Taken 03/11/20] pantoprazole 40 mg PO DAILY 03/20/18 [History Last Taken 03/11/20] spironolactone 25 mg PO DAILY 08/20/18 [History Last Taken 03/11/20] lactulose 10 ml PO TID 03/12/20 [History Last Taken 03/11/20] magnesium oxide 400 mg PO DAILYCM 03/12/20 [History Last Taken 03/11/20] potassium chloride 10 meq PO BID 03/12/20 [History Last Taken 03/11/20] tramadol 50 mg PO Q6H PRN PRN 03/12/20 [History Last Taken Unknown] trazodone 100 mg PO QHS 03/12/20 [History Last Taken 03/11/20] multivitamin,gv-xdso-crkoypzt 1 tab PO DAILYCM tab 03/13/20 [Rx Last Taken Unk nown] ondansetron 4 mg PO Q8H PRN PRN #10 tab 04/27/20 [Rx Last Taken Unknown] tamsulosin 0.4 mg PO DAILY 07/26/20 [History Last Taken Unknown] benzonatate 100 mg PO BID PRN 09/21/20 [History Last Taken Unknown] hydrocodone-acetaminophen 1 tab PO Q6H PRN PRN 3 Days #12 tablet 09/21/20 [Rx Last Taken Unknown] metoclopramide HCl 10 mg PO 4X/DAY PRN 09/21/20 [History Last Taken Unknown] spironolactone 50 mg PO BID #10 tab 09/21/20 [Rx Last Taken Unknown] Allergy/AdvReac Type Severity Reaction Status Date / Time No Known Allergies Allergy Verified 10/17/20 07:12 Family History Mother Cancer Father Lupus Surgical History History of aortic aneurysm repair Social History household members: none Smoking Status: Former smoker alcohol intake: current alcohol intake frequency: a few times a week substance use type: does not use ROS ROS ED Constitutional Constitutional ED: Denies chills or fever(s) Eyes Eyes: Denies change in vision or diplopia ENT ENT ED: Denies rhinorrhea or sore throat Cardiovascular Cardiovascular: Denies chest pain or palpitations Respiratory/Chest Respiratory/Chest: Denies cough or dyspnea Gastrointestinal Gastrointestinal: Reports as per HPI, abdominal pain and nausea; Denies diarrhea, hematemesis, hematochezia or vomiting Genitourinary Genitourinary ED: Denies dysuria or hematuria Musculoskeletal Musculoskeletal: Denies back pain or neck pain Integumentary Denies abscess or rash Neurologic Neurologic: Denies headache(s), paresthesias or weakness Psychiatric Psychiatric: Denies anxiety or suicidal thoughts EXAM Physical Exam Const Vital Signs: 10/23/20 12:18 10/23/20 15:42 Temperature 98.0 F Temperature Source Oral Pulse Rate 76 82 Respiratory Rate 10 L 14 Blood Pressure 148/59 H 118/42 L Blood Pressure Mean 88 67 Pulse Ox 99 Oxygen Delivery Method Room Air Positive well nourished and well developed Constitutional Narrative: Ill-appearing no distress General Appearance ED: well developed and NAD HEENT Reports moist mucous membranes normocephalic and atraumatic Eyes PERRL and EOMs intact bilaterally Neck full ROM and supple Resp normal respiratory effort and clear to auscultation bilaterally Cardio regular rate, regular rhythm and no murmurs GI GI Narrative: Abdominal distention consistent with fluid wave. Epigastric tenderness, otherwise nontender. No guarding or rebound tenderness. Auscultation: normoactive bowel sounds Palpation: soft Back/Spine no CVA tenderness General Back: other FROM Extremity normal to inspection General Extremety ED: Negative for edema, pulses abnormal or tenderness General Extremity: Negative for edema or pulses abnormal Neuro oriented x3, CN's II-XII intact bilaterally and no sensory deficits noted Sensorium / Orientation: awake and alert Motor Exam: strength 5/5 throughout Skin no rashes or lesions noted and no wounds MDM MDM MDM Narrative Medical decision making narrative: Labs appear stable. His nausea was initially treated with Reglan 5 mg he said it did not help and he needed something for pain more than nausea then. That was not his initial story. He was given morphine, Compazine, and Benadryl after that. This did help, it also made him tired so he slept for a little bit but he was able to tolerate oral fluids when he got up, since he can go home and take his medications and follow-up as clint danielson, I would recommend that. Prescribed nothing else at this time since he is already on 4 times daily metoclopramide and as needed ondansetron at home. Lab Data Attestation: I reviewed the patient's lab results. Labs: Laboratory Results - last 24 hr 10/23/20 10/23/20 13:19 13:19 WBC 3.7 L RBC 3.39 L Hgb 11.6 L Hct 34.3 L MCV 101.2 H MCH 34.2 H MCHC 33.8 RDW Std Deviation 56.8 H RDW Coeff of Delilah 15.1 H Plt Count 41 L* MPV 10.4 Immature Gran % (Auto) 0.500 Neut % (Auto) 73.8 H Lymph % (Auto) 13.4 L [place] % (Auto) 12.0 H Eos % (Auto) 0.0 Baso % (Auto) 0.3 Absolute Neuts (auto) 2.7 Absolute Lymphs (auto) 0.49 L Nucleated RBC % 0 Diff Path Review May foll Platelet Estimate MKD DEC Sodium 136 Potassium 3.4 L Chloride 101 Carbon Dioxide 21.0 Anion Gap 14 BUN 6 L Creatinine 0.51 L Estim Creat Clear Calc 166.10 Est GFR (MDRD) Af Amer 214 Est GFR (MDRD) Non-Af 177 BUN/Creatinine Ratio 11.8 Glucose 134 H Calcium 8.5 Discharge Plan Triage Chief Complaint: Nausea/Vomiting ED Provider: Bruce Estrada Dx/Rx/DC Orders Clinical Impression: Nausea, Acute epigastric pain Instructions: ED Gastritis (Adult) Prescriptions: No Action nadolol 20 MG tablet 40 mg PO DAILY RF: 0 pantoprazole 40 MG tablet,delayed release (DR/EC) 40 mg PO DAILY RF: 0 ferrous sulfate [iron] 325 MG tablet 325 mg PO DAILY RF: 0 spironolactone 25 MG tablet 25 mg PO DAILY RF: 0 tramadol 50 MG tablet 50 mg PO Q6H PRN PRN (Reason: Pain Score 1-10) RF: 0 potassium chloride 10 MEQ tablet extended release 10 meq PO BID RF: 0 magnesium oxide 400 MG tablet 400 mg PO DAILYCM RF: 0 trazodone 100 MG tablet 100 mg PO QHS RF: 0 lactulose 10 GM/15 ML solution 10 ml PO TID RF: 0 multivitamin,ry-ksik-yhqziblj 1 TABLET tablet 1 tab PO DAILYCM RF: 0 ondansetron 4 MG tablet 4 mg PO Q8H PRN PRN (Reason: Nausea) Qty: 10 RF: 0 tamsulosin 0.4 mg Capsule 0.4 mg PO DAILY RF: 0 benzonatate 100 mg Capsule 100 mg PO BID PRN (Reason: Cough) RF: 0 metoclopramide HCl [metoclopramide HCl] 10 MG tablet 10 mg PO 4X/DAY PRN (Reason: Nausea) RF: 0 spironolactone 50 mg tablet 50 mg PO BID Qty: 10 RF: 0 hydrocodone-acetaminophen [hydrocodone-acetaminophen] 1 TABLET tablet 1 tab PO Q6H PRN PRN (Reason: Pain) 3 Days Qty: 12 RF: 0 Primary Care Provider: Alice Cuellar Referrals: Alice Cuellar DO [Primary Care Provider] - 3-5 Days if not improving Disposition Disposition: Home, Self Care
[2020-10-23] MEDS: Metoclopramide 10 MG/2 ML Vial 5 MG IV (13:16)
[2020-10-23 13:28] LABS: Absolute Lymphocyte Count 0.49 X10^3/uL (0.83-4.51); Absolute Neutrophil Count 2.7 X10^3/uL (2.0-7.7); Basophil# 0.01 X10^3/uL; Basophil% 0.3 % (0-1); Hematocrit 34.3 % (40-54); Hemoglobin 11.6 g/dL (13.0-16.5); Lymphocyte # 0.49 X10^3/ul (0.83-4.51); Lymphocyte % 13.4 % (19-41); Mean Corp Hgb Conc 33.8 g/dL (32-36); Mean Corpuscular Hgb 34.2 pg (27.0-32.0); Mean Corpuscular Volume 101.2 fL (80-94); Mean Platelet Vol. 10.4 fl (6.2-12.0); Monocyte# 0.44 X10^3/uL; NRBC Flagged by Analyzer 0 % (0-5); Neutrophil # 2.71 X10^3/uL (2.7-7.7); Neutrophil % 73.8 % (47-70); POSITIVE COUNT YES; POSITIVE DIFFERENTIAL YES; Platelet Count 41 K/mm3 (150-450); RBC Distribution Width CV 15.1 % (11.6-14.6); RBC Distribution Width SD 56.8 fl (35.1-43.9); Red Blood Count 3.39 M/mm3 (4.6-6.2); White Blood Count 3.7 K/mm3 (4.4-11.0)
[2020-10-23 13:31] LABS: Differential Indicated SCAN CRITERIA MET
[2020-10-23 13:52] LABS: Platelet Estimate MKD DEC (ADEQ)
[2020-10-23 13:54] LABS: Anion Gap 14 (5-15); BUN 6 mg/dL (7-18); BUN/Creat Ratio 11.8 RATIO (10-20); Calcium,Total 8.5 mg/dL (8.5-10.1); Chloride 101 mmol/L (98-107); Creatinine, Serum 0.51 mg/dL (0.70-1.30); EST Glomerular Filtration Rate 177 mL/min (>60); Est Glom Filt Rate - Afr Amer 214 mL/min (>60); Glucose 134 mg/dL (74-106); Potassium 3.4 mmol/L (3.5-5.1); Sodium Level 136 mmol/L (136-145)
[2020-10-23] MEDS: DiphenhydrAMINE 50 MG/ML Syringe 25 MG IV (14:31)
[2020-10-23] MEDS: proCHLORPERazine 10 MG/2 ML Vial 5 MG IV (14:32)
[2020-10-23] MEDS: Morphine 4 MG/ML Syringe IV (14:33)
[2020-10-23 15:42] VITALS: BP 118/42; PULSE 82; RESP 14
[2020-10-23 17:05] VITALS: BP 114/64; PULSE 70; RESP 16; O2SAT 98
[2020-10-24 13:01] LABS: Pathologist Review Reviewed
== END 2020-10-23 17:22 | disposition home or self-care (01) ==
PROVIDERS: Emergency Provider Emergency Medicine; PCP Family Medicine
DX: R11.2 Nausea with vomiting, unspecified (principal); R10.13 Epigastric pain; I10 Essential (primary) hypertension; G89.29 Other chronic pain; Z87.891 Personal history of nicotine dependence; Z86.79 Personal history of other diseases of the circulatory system; I73.9 Peripheral vascular disease, unspecified
CPT/HCPCS: 80048; 85025; 96374; 96375; 99285; J7040; A4216

== ENCOUNTER 2020-11-14 23:31 | Inpatient (IN) | payer OTHER, SELFPAY ==
--- NOTE | 2020-11-14 00:20 | RAD_ITS ---
HISTORY: hematemesis EXAMINATION/TECHNIQUE: XR Chest 1 View COMPARISON: AP chest x-ray from 09/21/20 FINDINGS: LINES/DEVICES: awake overnight monitor leads. LUNGS: No focal airspace consolidation. No pulmonary edema. No pleural effusion. No pneumothorax. MEDIASTINUM AND CARDIOVASCULAR STRUCTURES: Cardiac silhouette not enlarged. Central airways and mediastinal contour are unremarkable. BONES AND SOFT TISSUES: No acute findings. RAD/Chest 1 View (Portable) IMPRESSION: No radiographic evidence of acute cardiopulmonary disease. at [id number] Reported and signed by: Kendall Kern MD Electronically Signed: Kendall Kern MD at 1:45 EDT Tel , Service support ,
[2020-11-14 23:34] VITALS: BP 142/76; PULSE 103; RESP 19; TEMP 36.8; O2SAT 98; BMI 25.7
--- NOTE | 2020-11-14 23:52 | EX.ED.DYSGE1 ---
HPI History of Present Illness Chief Complaint: Nausea/Vomiting Narrative Narrative: Patient with a history of alcoholic cirrhosis presenting with several hours worth of hematemesis. From what the patient vomited for EMS and just upon arrival here prior to my evaluation, patient so far has vomited about 800 cc of dark blood. He has felt near syncopal and weak. He denies any chest pain but is having midepigastric pain. He states he had some type of stomach aneurysm repair remotely no other abdominal surgeries. He continues to drink but states he is curbed his alcohol significantly, he had 2 beers this morning. He states he has a history of esophageal varices but has never needed them banded PFSH PFS Medical History Aortic aneurysm without rupture Benign essential hypertension Chronic pain Diastolic dysfunction Esophageal varices in alcoholic cirrhosis Liver cirrhosis, alcoholic Peripheral arterial disease Smoker Home Medications ferrous sulfate [iron] 325 mg PO DAILY 03/20/18 [History Last Taken 03/11/20] nadolol 40 mg PO DAILY 03/20/18 [History Last Taken 03/11/20] pantoprazole 40 mg PO DAILY 03/20/18 [History Last Taken 03/11/20] spironolactone 25 mg PO DAILY 08/20/18 [History Last Taken 03/11/20] lactulose 10 ml PO TID 03/12/20 [History Last Taken 03/11/20] magnesium oxide 400 mg PO DAILYCM 03/12/20 [History Last Taken 03/11/20] potassium chloride 10 meq PO BID 03/12/20 [History Last Taken 03/11/20] tramadol 50 mg PO Q6H PRN PRN 03/12/20 [History Last Taken Unknown] trazodone 100 mg PO QHS 03/12/20 [History Last Taken 03/11/20] multivitamin,en-qnhz-wjdysdwt 1 tab PO DAILYCM tab 03/13/20 [Rx Last Taken Unknown] ondansetron 4 mg PO Q8H PRN PRN #10 tab 04/27/20 [Rx Last Taken Unknown] tamsulosin 0.4 mg PO DAILY 07/26/20 [History Last Taken Unknown] benzonatate 100 mg PO BID PRN 09/21/20 [History Last Taken Unknown] hydrocodone-acetaminophen 1 tab PO Q6H PRN PRN 3 Days #12 tablet 09/21/20 [Rx Last Taken Unknown] metoclopramide HCl 10 mg PO 4X/DAY PRN 09/21/20 [History Last Taken Unknown] spironolactone 50 mg PO BID #10 tab 09/21/20 [Rx Last Taken Unknown] Allergy/AdvReac Type Severity Reaction Status Date / Time No Known Allergies Allergy Verified 11/14/20 23:34 Family History Mother Cancer Father Lupus Surgical History History of aortic aneurysm repair Social History household members: none Smoking Status: Former smoker alcohol intake: current alcohol intake frequency: a few times a week substance use type: does not use ROS ROS ED Constitutional Constitutional ED: Denies chills or fever(s) Eyes Eyes: Denies change in vision or diplopia ENT ENT ED: Denies rhinorrhea or sore throat Cardiovascular Cardiovascular: Denies chest pain or palpitations Respiratory/Chest Respiratory/Chest: Denies cough or dyspnea Gastrointestinal Gastrointestinal: Reports abdominal pain, hematemesis, nausea and vomiting; Denies diarrhea or hematochezia Genitourinary Genitourinary ED: Denies dysuria or hematuria Musculoskeletal Musculoskeletal: Denies back pain or neck pain Integumentary Denies abscess or rash Neurologic Neurologic: Denies headache(s), paresthesias or weakness Psychiatric Psychiatric: Denies anxiety or suicidal thoughts EXAM Physical Exam Const Vital Signs: 11/14/20 23:34 11/15/20 00:55 11/15/20 00:56 Temperature 98.2 F 97.7 F L Temperature Source Temporal Temporal Pulse Rate 103 H 100 Respiratory Rate 19 H 21 H Blood Pressure 142/76 H 124/72 H Blood Pressure Mean 98 89 Pulse Ox 98 94 Oxygen Delivery Method Room Air Room Air 11/15/20 02:06 Temperature Temperature Source Pulse Rate 79 Respiratory Rate 19 H Blood Pressure 124/77 H Blood Pressure Mean 92 Pulse Ox 100 Oxygen Delivery Method Room Air Positive well nourished and well developed General Appearance ED: well developed and NAD HEENT Reports moist mucous membranes normocephalic and atraumatic Eyes PERRL and EOMs intact bilaterally General Eye ED: Yes scleral icterus Neck full ROM and supple Resp normal respiratory effort and clear to auscultation bilaterally Cardio regular rate, regular rhythm and no murmurs Rate: tachycardic GI non-distended GI Narrative: Tender epigastrium otherwise benign abdomen. No guarding or rebound. Auscultation: hyperactive bowel sounds Palpation: soft Back/Spine no CVA tenderness General Back: other FROM Extremity normal to inspection General Extremety ED: Negative for edema, pulses abnormal or tenderness General Extremity: Negative for edema or pulses abnormal Neuro oriented x3, CN's II-XII intact bilaterally and no sensory deficits noted Sensorium / Orientation: awake and alert Motor Exam: strength 5/5 throughout Skin no rashes or lesions noted and no wounds MDM MDM MDM Narrative Medical decision making narrative: IV fluid bolus ordered, type and screen, labs, IV pantoprazole followed by drip, Zofran, analgesics, and GI emergently consulted. However, we were not able to reach GI bacon slicer after several attempts. And after additionally getting Reglan, the patient was doing much better and stopped vomiting blood. He remained clinically hemodynamically stable on Protonix drip. At this time the patient is feeling improved, he is having less abdominal pain as well. He has a nonsurgical abdomen, no signs of peritonitis. Chest x-ray shows no sign of free air perforation. I discussed with hospitalist, we agree would be reasonable to admit him to monitored bed at this time and consult GI in the morning since his bleeding is better controlled at this time. Lab Data Attestation: I reviewed the patient's lab results. Labs: Laboratory Results - last 24 hr 11/14/20 11/14/20 11/14/20 23:45 23:45 23:45 WBC 7.4 RBC 3.54 L Hgb 12.0 L Hct 34.9 L MCV 98.6 H MCH 33.9 H MCHC 34.4 RDW Std Deviation 52.4 H RDW Coeff of Delilah 14.3 Plt Count 50 L* MPV 10.3 Immature Gran % (Auto) 0.300 Neut % (Auto) 73.1 H Lymph % (Auto) 10.4 L [place] % (Auto) 15.5 H Eos % (Auto) 0.4 Baso % (Auto) 0.3 Absolute Neuts (auto) 5.4 Absolute Lymphs (auto) 0.77 L Nucleated RBC % 0 Differential Comment SCANNED Platelet Estimate MOD DEC PT 16.6 H INR 1.4 Sodium Potassium Chloride Carbon Dioxide Anion Gap BUN Creatinine Estim Creat Clear Calc Est GFR (MDRD) Af Amer Est GFR (MDRD) Non-Af BUN/Creatinine Ratio Glucose Calcium Total Bilirubin AST ALT Alkaline Phosphatase Total Protein Albumin Globulin Albumin/Globulin Ratio Lipase Blood Type A NEGATIVE Antibody Screen NEGATIVE 11/14/20 23:45 WBC RBC Hgb Hct MCV MCH MCHC RDW Std Deviation RDW Coeff of Delilah Plt Count MPV Immature Gran % (Auto) Neut % (Auto) Lymph % (Auto) [place] % (Auto) Eos % (Auto) Baso % (Auto) Absolute Neuts (auto) Absolute Lymphs (auto) Nucleated RBC % Differential Comment Platelet Estimate PT INR Sodium 136 Potassium 4.1 Chloride 106 Carbon Dioxide 21.0 Anion Gap 9 BUN 6 L Creatinine 0.59 L Estim Creat Clear Calc 141.81 Est GFR (MDRD) Af Amer 179 Est GFR (MDRD) Non-Af 148 BUN/Creatinine Ratio 10.1 Glucose 175 H Calcium 7.5 L Total Bilirubin 1.00 AST 39 H ALT 28 Alkaline Phosphatase 91 Total Protein 6.4 Albumin 2.4 L Globulin 4.0 Albumin/Globulin Ratio 0.6 L Lipase 414 H Blood Type Antibody Screen Radiography Chest X-Ray - ED: 1 View, Read by ED Physician and No Acute Disease (no free air) Diagnostic Testing: Radiology Impression Chest X-Ray 11/14/20 00:20 IMPRESSION: No radiographic evidence of acute cardiopulmonary disease. at 0146 Reported and signed by: Kendall Kern MD Electronically Signed: Kendall Kern MD at 1:45 EDT Tel , Service support , Discharge Plan Dx/Rx/DC Orders Clinical Impression: Acute upper gastrointestinal bleeding, History of esophageal varices, Alcoholic cirrhosis, Near syncope Disposition Disposition: Acute Care [facility]
[2020-11-15] VITALS (18 sets, daily range): BP systolic 98–141; BP diastolic 57–78; PULSE 66–100; RESP 15–21; TEMP 36.1–36.8; O2SAT 94–100; BMI 25.7
[2020-11-15 00:01] LABS: Absolute Lymphocyte Count 0.77 X10^3/uL (0.83-4.51); Absolute Neutrophil Count 5.4 X10^3/uL (2.0-7.7); Basophil# 0.02 X10^3/uL; Basophil% 0.3 % (0-1); Eosinophil# 0.03 X10^3/uL; Eosinophils% 0.4 % (0-5); Hematocrit 34.9 % (40-54); Lymphocyte # 0.77 X10^3/ul (0.83-4.51); Lymphocyte % 10.4 % (19-41); Mean Corp Hgb Conc 34.4 g/dL (32-36); Mean Corpuscular Hgb 33.9 pg (27.0-32.0); Mean Corpuscular Volume 98.6 fL (80-94); Mean Platelet Vol. 10.3 fl (6.2-12.0); Monocyte# 1.14 X10^3/uL; Monocyte% 15.5 % (0-10); NRBC Flagged by Analyzer 0 % (0-5); Neutrophil # 5.39 X10^3/uL (2.7-7.7); Neutrophil % 73.1 % (47-70); POSITIVE COUNT YES; RBC Distribution Width CV 14.3 % (11.6-14.6); RBC Distribution Width SD 52.4 fl (35.1-43.9); Red Blood Count 3.54 M/mm3 (4.6-6.2); White Blood Count 7.4 K/mm3 (4.4-11.0)
[2020-11-15 00:06] LABS: International Normalized Ratio 1.4; Prothrombin Time (Protime)PT. 16.6 SECONDS (11.7-14.9)
[2020-11-15 00:10] LABS: Differential Indicated SCAN CRITERIA MET; Platelet Count 50 K/mm3 (150-450)
[2020-11-15] MEDS: 0.9% Normal Saline 1,000 ML 1000 ML IV (00:13)
[2020-11-15] MEDS: Ondansetron 4 MG/2 ML Vial IV ×2 (00:14→13:08)
[2020-11-15] MEDS: Morphine 4 MG/ML Syringe IV (00:14)
[2020-11-15 00:29] LABS: ALB/GLOB Ratio 0.6 RATIO (0.9-2.4); AST(SGOT) 39 U/L (15-37); Alanine Aminotransfer ALT/SGPT 28 U/L (16-61); Albumin, Serum 2.4 g/dL (3.2-5.0); Alkaline Phosphatase 91 U/L (45-117); Anion Gap 9 (5-15); BUN 6 mg/dL (7-18); BUN/Creat Ratio 10.1 RATIO (10-20); Calcium,Total 7.5 mg/dL (8.5-10.1); Chloride 106 mmol/L (98-107); Creatinine, Serum 0.59 mg/dL (0.70-1.30); EST Glomerular Filtration Rate 148 mL/min (>60); Est Glom Filt Rate - Afr Amer 179 mL/min (>60); Estimated Creatinine Clearance 141.81 ml/min; Glucose 175 mg/dL (74-106); Lipase 414 U/L (73-393); Potassium 4.1 mmol/L (3.5-5.1); Protein, Total 6.4 g/dL (6.4-8.2); Sodium Level 136 mmol/L (136-145)
[2020-11-15 00:51] LABS: Differential Comment SCANNED; Platelet Estimate MOD DEC (ADEQ)
[2020-11-15] MEDS: Metoclopramide 10 MG/2 ML Vial 5 MG IV (02:05)
--- NOTE | 2020-11-15 02:08 | HP.PCM.HOS_ITS ---
HPI - General General Date of Admission: 11/15/20 HPI Narrative JB ALARCON, is a 60 M with a significant history of cirrhosis; esophageal varices; abdominal aortic aneurysm with repair who presents with multiple episodes of hematemesis that started about 1 hour before presentation. Asso ciated with his symptoms is nausea and abdominal pain. Also he complained of lightheadedness. Of note patient was at our hospital ED on 10/17/2020 with hematemesis. He was subsequently transferred to a tertiary institution. He reported again to the hospital on 10/23/2020 with nausea and vomiting and stated at that time that he was just discharged from [facility] the previous day. Reportedly [facility] did an EGD but did not find anything to band. PFSH Medical History Aortic aneurysm without rupture Benign essential hypertension Chronic pain Diastolic dysfunction Esophageal varices in alcoholic cirrhosis Liver cirrhosis, alcoholic Peripheral arterial disease Smoker Home Medications ferrous sulfate [iron] 325 mg PO DAILY 03/20/18 [History Last Taken 03/11/20] nadolol 40 mg PO DAILY 03/20/18 [History Last Taken 03/11/20] pantoprazole 40 mg PO DAILY 03/20/18 [History Last Taken 03/11/20] spironolactone 25 mg PO DAILY 08/20/18 [History Last Taken 03/11/20] lactulose 10 ml PO TID 03/12/20 [History Last Taken 03/11/20] magnesium oxide 400 mg PO DAILYCM 03/12/20 [History Last Taken 03/11/20] potassium chloride 10 meq PO BID 03/12/20 [History Last Taken 03/11/20] tramadol 50 mg PO Q6H PRN PRN 03/12/20 [History Last Taken Unknown] trazodone 100 mg PO QHS 03/12/20 [History Last Taken 03/11/20] multivitamin,dx-rpjj-umxwokuu 1 tab PO DAILYCM tab 03/13/20 [Rx Last Taken Unknown] ondansetron 4 mg PO Q8H PRN PRN #10 tab 04/27/20 [Rx Last Taken Unknown] tamsulosin 0.4 mg PO DAILY 07/26/20 [History Last Taken Unknown] benzonatate 100 mg PO BID PRN 09/21/20 [History Last Taken Unknown] hydrocodone-acetaminophen 1 tab PO Q6H PRN PRN 3 Days #12 tablet 09/21/20 [Rx Last Taken Unknown] metoclopramide HCl 10 mg PO 4X/DAY PRN 09/21/20 [History Last Taken Unknown] spironolactone 50 mg PO BID #10 tab 09/21/20 [Rx Last Taken Unknown] Allergy/AdvReac Type Severity Reaction Status Date / Time No Known Allergies Allergy Verified 11/14/20 23:34 Family History Mother Cancer Father Lupus Surgical History History of aortic aneurysm repair Social History household members: none Smoking Status: Current some day smoker tobacco type: cigarettes alcohol intake: current alcohol intake frequency: a few times a week substance use type: does not use ROS ROS Narrative Constitutional: Denies anorexia and change in weight Eyes: Denies blurry vision, change in eye color, change in vision, discharge from eye(s), double vision, erythema, eye pain, loss of vision or other HEENT: Denies abnormal hearing, dysphagia, ear pain, epistaxis, headache(s), hearing loss, nasal congestion, nasal discharge, post nasal drip, sinus pressure, sore throat or other Cardiovascular: Denies chest pain or palpitations. Denies dyspnea on exertion, orthopnea and paroxysmal nocturnal dyspnea Respiratory/Chest: Denies cough, excessive phlegm production, shortness of breath with exertion and wheezing Gastrointestinal: Reports abdominal pain, nausea and hematemesis. Reports loose stools (attributes to lactulose). Denies constipation. Genitourinary: Denies burning urination, difficulty urinating, dysuria, hematuria, nocturia, urinary frequency, urinary hesitancy, urinary incontinence, urinary urgency or other Musculoskeletal: Denies arthralgias, back pain, joint pain, joint stiffness, joint swelling, myalgias, neck pain or other Neurologic: Denies abnormal gait, abnormal speech, confusion, disequilibrium, dizziness, focal weakness, headache(s), numbness, paresthesias, seizure-like activity, seizures, syncope, tingling, tremor(s) or other Psychiatric: Denies anxiety, depression, homicidal ideation, suicidal ideation or other Endocrinology: Denies change in body appearance, cold intolerance, excessive sweating, heat intolerance, polydipsia, polyuria or other Hematologic/Lymphatic: Denies anemia, easy bleeding, easy bruising, lymphadenopathy or other Integumentary: Denies rashes Allergic/Immunologic: Denies rhinitis, hives, eczema, asthma or other Vital Signs Vital Signs Vital Signs: 11/14/20 23:34 11/15/20 00:55 11/15/20 00:56 Temperature 98.2 F 97.7 F L Temperature Source Temporal Temporal Pulse Rate 103 H 100 Respiratory Rate 19 H 21 H Blood Pressure 142/76 H 124/72 H Blood Pressure Mean 98 89 Pulse Ox 98 94 Oxygen Delivery Method Room Air Room Air 11/15/20 02:06 Temperature Temperature Source Pulse Rate 79 Respiratory Rate 19 H Blood Pressure 124/77 H Blood Pressure Mean 92 Pulse Ox 100 Oxygen Delivery Method Room Air Weight Weight: 83.9 kg Body Mass Index (BMI) 25.7 Physical Exam Narrative Physical exam: General: Well-nourished, well-developed. Head: Normocephalic, atraumatic, no tenderness Eyes: PERRLA, EOMI ENT, no trauma, moist mucous membranes, no rhinorrhea Neck: Nontender, full range of motion, no spinal tenderness, deformities, step- off CVS: Regular rate and rhythm. S1-S2 present. No murmur, gallop or rub. Respiratory : clear to auscultation bilaterally, chest wall nontender, no wheezing Abdomen: Soft, nontender, nondistended, normal bowel sounds, no masses : Deferred Back: Nontender, no CVA tenderness, no midline spinal tenderness, deformities, step-offs Extremities: Nontender full range of motion, no trauma Skin: Normal color, no trauma, abrasions Neuro: Alert, oriented, cranial nerves II through XII grossly intact. Psychiatry: Normal mood. Normal affect. Not depressed. Not anxious. Results Lab / Micro Data Result Diagrams: 11/15/20 02:15 11/14/20 23:45 Labs: Laboratory Results - last 24 hr 11/14/20 23:45: PT 16.6 H, INR 1.4 11/14/20 23:45: Blood Type A NEGATIVE, Antibody Screen NEGATIVE 11/14/20 23:45: WBC 7.4, RBC 3.54 L, Hgb 12.0 L, Hct 34.9 L, MCV 98.6 H, MCH 33.9 H, MCHC 34.4, RDW Std Deviation 52.4 H, RDW Coeff of Delilah 14.3, Plt Count 50 L*, MPV 10.3, Immature Gran % (Auto) 0.300, Neut % (Auto) 73.1 H, Lymph % (Auto) 10.4 L, [place] % (Auto) 15.5 H, Eos % (Auto) 0.4, Baso % (Auto) 0.3, Absolute Neuts (auto) 5.4, Absolute Lymphs (auto) 0.77 L, Nucleated RBC % 0, Differential Comment SCANNED, Platelet Estimate MOD 11/14/20 23:45: Sodium 136, Potassium 4.1, Chloride 106, Carbon Dioxide 21.0, Anion Gap 9, BUN 6 L, Creatinine 0.59 L, Estim Creat Clear Calc 141.81, Est GFR (MDRD) Af Amer 179, Est GFR (MDRD) Non-Af 148, BUN/Creatinine Ratio 10.1, Glucose 175 H, Calcium 7.5 L, Total Bilirubin 1.00, AST 39 H, ALT 28, Alkaline Phosphatase 91, Total Protein 6.4, Albumin 2.4 L, Globulin 4.0, Albumin/Globulin Ratio 0.6 L, Lipase 414 H Radiology Impression Chest X-Ray 11/14/20 00:20 IMPRESSION: No radiographic evidence of acute cardiopulmonary disease. at 0146 Reported and signed by: Kendall Kern MD Electronically Signed: Kendall Kern MD at 1:45 EDT Tel , Service support , Assessment & Plan Assessment/Plan (1) Acute GI bleeding: PLAN: Acute GI bleed. Patient received Reglan at the emergency department and his hematemesis was controlled. Protonix IV ordered at the emergency department and continued. Will start patient on octreotide bolus and drip. Normal saline bolus ordered at the emergency department. Review of labs showed INR of 1.4. Trend H&H. Will keep patient strictly n.p.o. GI consult. History of alcoholism Reportedly he has cut down his drinking significantly and now he drinks about 2 beers per day and not every day. Clinical monitoring. Pancytopenia Heme hemoglobin of 12>11.9, chronic thrombocytopenia with platelet count of 50 which decreased to 37. Will transfuse platelets. Pseudohypocalcemia Calcium 7.5. Albumin of 2.4. Corrected calcium is 8.8. Trend BMP DVT prophylaxis: SCD ordered Charges/Coding Visit Charges Inpatient E&M: 53859 Init Hosp L3
[2020-11-15 02:23] LABS: Absolute Neutrophil Count 5.3 X10^3/uL (2.0-7.7); Basophil# 0.01 X10^3/uL; Basophil% 0.2 % (0-1); Hematocrit 35.7 % (40-54); Hemoglobin 11.9 g/dL (13.0-16.5); Lymphocyte % 7.8 % (19-41); Mean Corp Hgb Conc 33.3 g/dL (32-36); Mean Corpuscular Hgb 33.7 pg (27.0-32.0); Mean Corpuscular Volume 101.1 fL (80-94); Mean Platelet Vol. 10.8 fl (6.2-12.0); Monocyte# 0.64 X10^3/uL; NRBC Flagged by Analyzer 0.3 % (0-5); Neutrophil # 5.26 X10^3/uL (2.7-7.7); Neutrophil % 81.7 % (47-70); POSITIVE COUNT YES; POSITIVE DIFFERENTIAL YES; RBC Distribution Width CV 14.4 % (11.6-14.6); Red Blood Count 3.53 M/mm3 (4.6-6.2); White Blood Count 6.4 K/mm3 (4.4-11.0)
[2020-11-15 02:31] LABS: Differential Indicated SCAN CRITERIA MET; Platelet Count 37 K/mm3 (150-450)
[2020-11-15] MEDS: Octreotide 0.1 MG/ML ML 0.05 MG IV (02:51)
--- NOTE | 2020-11-15 03:02 | NURSING ---
Called nursing food service supervisor for pump to [facility] as handed pump off to VAL Brown for another patient.
[2020-11-15] MEDS: Morphine 2 MG/ML Syringe IV ×2 (04:58→20:32)
[2020-11-15 06:36] LABS: Hematocrit 31.8 % (40-54); Hemoglobin 10.9 g/dL (13.0-16.5)
--- NOTE | 2020-11-15 09:49 | EX.PCM.CON.G ---
HPI Consult Data Date of Consult: 11/15/20 HPI Narrative HPI Narrative: JB ALARCON, is a 60 M who presents with hematemesis. 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 Patient was recently transferred to a hospital in [place] due to an upper GI bleed 2 weeks ago. During that evaluation he underwent upper endoscopy and there was no sign of upper GI bleed. He presented to the emergency department early in the morning after having 2 episodes of hematemesis at home. He admits to drinking alcohol. He is also had 3 of them per the artery these but is not on any antiplatelet therapy or any anticoagulation. In the ED, he was not hypotensive. He did have another episode of hematemesis in the ED. His hemoglobin was 12. After rechecking it it went to 10.9. He was started on a PPI drip and octreotide drip. He has no history of ascites. He has no history of metabolic encephalopathy. He has never been evaluated for TIPS procedure or transplantation. He has no history of arthrosclerotic heart disease. 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 He still continues to be hemodynamically stable. [facility] Medical History Aortic aneurysm without rupture Benign essential hypertension Chronic pain Diastolic dysfunction Esophageal varices in alcoholic cirrhosis Liver cirrhosis, alcoholic Peripheral arterial disease Smoker Home Medications ferrous sulfate [iron] 325 mg PO DAILY 03/20/18 [History Last Taken 03/11/20] nadolol 40 mg PO DAILY 03/20/18 [History Last Taken 03/11/20] pantoprazole 40 mg PO DAILY 03/20/18 [History Last Taken 03/11/20] spironolactone 25 mg PO DAILY 08/20/18 [History Last Taken 03/11/20] lactulose 10 ml PO TID 03/12/20 [History Last Taken 03/11/20] magnesium oxide 400 mg PO DAILYCM 03/12/20 [History Last Taken 03/11/20] potassium chloride 10 meq PO BID 03/12/20 [History Last Taken 03/11/20] tramadol 50 mg PO Q6H PRN PRN 03/12/20 [History Last Taken Unknown] trazodone 100 mg PO QHS 03/12/20 [History Last Taken 03/11/20] multivitamin,he-lcsa-gdignztw 1 tab PO DAILYCM tab 03/13/20 [Rx Last Taken Unknown] ondansetron 4 mg PO Q8H PRN PRN #10 tab 04/27/20 [Rx Last Taken Unknown] tamsulosin 0.4 mg PO DAILY 07/26/20 [History Last Taken Unknown] benzonatate 100 mg PO BID PRN 09/21/20 [History Last Taken Unknown] hydrocodone-acetaminophen 1 tab PO Q6H PRN PRN 3 Days #12 tablet 09/21/20 [Rx Last Taken Unknown] metoclopramide HCl 10 mg PO 4X/DAY PRN 09/21/20 [History Last Taken Unknown] spironolactone 50 mg PO BID #10 tab 09/21/20 [Rx Last Taken Unknown] Allergy/AdvReac Type Severity Reaction Status Date / Time No Known Allergies Allergy Verified 11/14/20 23:34 Family History Mother Cancer Father Lupus Surgical History History of aortic aneurysm repair Social History household members: none Smoking Status: Current some day smoker tobacco type: cigarettes alcohol intake: current alcohol intake frequency: a few times a week substance use type: does not use ROS Review of Systems ROS Unobtainable: other Constitutional Constitutional: Denies fatigue, fever(s), poor appetite, weight gain or weight loss ENT HEENT: Denies mouth lesions Cardiovascular Cardiovascular: Denies abdominal bloating, abdominal edema or abdominal pain Respiratory/Chest Respiratory/Chest: Denies change in mental status, change in phlegm color, chest congestion or chest tightness Gastrointestinal Gastrointestinal: Reports hematemesis; Denies belching, bloating, change in bowel habits, change in stool character, chewing difficulty, coffee ground emesis, constipation, cramping, diarrhea, dyspepsia, dysphagia, early satiety, excessive flatus, fecal incontinence, heartburn, hematochezia, hemorrhoids, loose stools, melena, nausea, odynophagia, rectal bleeding, tenesmus, vomiting or weight changes Genitourinary Genitourinary: Denies abdominal discomfort, burning urination or itching Musculoskeletal Musculoskeletal: Reports as per HPI; Denies muscle weakness or myalgias Integumentary Integumentary: Denies jaundice Neurologic Neurologic: Denies lack of coordination or weakness Psychiatric Psychiatric: Denies confusion, depression, memory loss, mood swings, paranoia or suicidal ideation Endocrine Endocrinology: Denies systems reviewed and no addt'l complaints, except as documented Hematologic/Lymphatic Hematologic/Lymphatic: Denies anemia, easy bleeding, easy bruising or lymphadenopathy Allergic/Immunologic Allergic/Immunologic: Denies systems reviewed and no addt'l complaints, except as documented Physical Exam Const alert General Appearance: cooperative Orientation / Consciousness: oriented to person HEENT hearing grossly normal bilaterally Head and Scalp: normal to inspection Face and Sinus: face symmetric Nose: external nose normal Mouth: oral and palatal mucosa normal Eyes conjunctivae normal General Eye: normal appearance of both eyes Neck full ROM General: normal visual inspection Lymph Lymphatic: no lymphadenopathy noted Chest inspection of chest normal and palpation of chest normal Chest: symmetrical chest wall rise Resp normal respiratory effort Effort and Inspection: able to speak in complete sentences Cardio regular rate GI non-distended Percussion: normal to percussion Rectal Exam: deferred Neuro Speech: speech normal Gait (Neuro): normal gait Lab / Micro Data Result Diagrams: 11/15/20 06:24 11/14/20 23:45 Labs: Laboratory Results - last 24 hr 11/14/20 23:45: PT 16.6 H, INR 1.4 11/14/20 23:45: Blood Type A NEGATIVE, Antibody Screen NEGATIVE 11/14/20 23:45: WBC 7.4, RBC 3.54 L, Hgb 12.0 L, Hct 34.9 L, MCV 98.6 H, MCH 33.9 H, MCHC 34.4, RDW Std Deviation 52.4 H, RDW Coeff of Delilah 14.3, Plt Count 50 L*, MPV 10.3, Immature Gran % (Auto) 0.300, Neut % (Auto) 73.1 H, Lymph % (Auto) 10.4 L, [place] % (Auto) 15.5 H, Eos % (Auto) 0.4, Baso % (Auto) 0.3, Absolute Neuts (auto) 5.4, Absolute Lymphs (auto) 0.77 L, Nucleated RBC % 0, Differential Comment SCANNED, Platelet Estimate MOD DEC 21 23:45: Sodium 136, Potassium 4.1, Chloride 106, Carbon Dioxide 21.0, Anion Gap 9, BUN 6 L, Creatinine 0.59 L, Estim Creat Clear Calc 141.81, Est GFR (MDRD) Af Amer 179, Est GFR (MDRD) Non-Af 148, BUN/Creatinine Ratio 10.1, Glucose 175 H, Calcium 7.5 L, Total Bilirubin 1.00, AST 39 H, ALT 28, Alkaline Phosphatase 91, Total Protein 6.4, Albumin 2.4 L, Globulin 4.0, Albumin/Globulin Ratio 0.6 L, Lipase 414 H 11/15/20 02:15: WBC 6.4, RBC 3.53 L, Hgb 11.9 L, Hct 35.7 L, MCV 101.1 H, MCH 33.7 H, MCHC 33.3, RDW Std Deviation 54.0 H, RDW Coeff of Delilah 14.4, Plt Count 37 L*, MPV 10.8, Immature Gran % (Auto) 0.300, Neut % (Auto) 81.7 H, Lymph % (Auto) 7.8 L, [place] % (Auto) 10.0, Eos % (Auto) 0.0, Baso % (Auto) 0.2, Absolute Neuts (auto) 5.3, Absolute Lymphs (auto) 0.50 L, Nucleated RBC % 0.3, Diff Path Review June11/15/20 06:24: Hgb 10.9 L, Hct 31.8 L Radiology Impression Chest X-Ray 11/14/20 00:20 IMPRESSION: No radiographic evidence of acute cardiopulmonary disease. at 0146 Reported and signed by: Kendall Kern MD Electronically Signed: Kendall Kern MD at 1:45 EDT Tel , Service support , Assessment & Plan Assessment/Plan (1) Acute GI bleeding: PLAN: Patient will undergo upper endoscopy for evaluation of his upper GI bleeding. He may need to undergo banding. He was explained alternatives, risk, benefits including and not withstanding bleeding, infection, sepsis, perforation, need for emergent surgery and . He would have an ASA of 3 for the procedure. (2) Cirrhosis: QUALIFIERS: Hepatic cirrhosis type: alcoholic cirrhosis Ascites presence: unspecified Qualified Code(s): K70.30 - Alcoholic cirrhosis of liver without ascites PLAN: He is not showing any other signs of decompensated liver disease at this time including no ascites or encephalopathy. (3) Thrombocytopenia: PLAN: He does have thrombocytopenia. His platelets are ordered however they are coming from [place] and would not be here for several hours. I feel as though he should be scoped and at least triage so we know if the platelets are needed or any other intervention is needed.
--- NOTE | 2020-11-15 11:30 | DCINST_ITS ---
Discharge Instructions Diet Discharge Diet: Soft diet (Soft diet with clear liquid for 5 days and then advance to grams sodium diet.) Activity Discharge Activity: May Not Drive Weight Bearing Status: Weight bearing as tolerated Dressing / Incision Call your doctor if you observe: Fever of 101 or Higher, Coldness, Increased Pain, Numbness or Tingling, Change in Color, Inability to urinate, Inability to have a bowel movement, Shortness of breath, Dizziness, Fainting spells, Swelling in the ankles, Chest pain, Prolonged hiccupping, Increased palpitations (irregular heartbeat), Calf discomfort and Uncontrolled pain Follow Up Care Test Results: Test results from this visit will be discussed in further detail at your follow-up appointment, if applicable. Discharge Plan Admission Admit Date/Time: 11/15/20 01:51 Primary Reason for Your Visit: Decompensated alcoholic cirrhosis with upper GI bleed Attending Provider: Crispin Coppola Primary Care Provider: Alice Cuellar Consulting Providers: Hugo Sheldon Instructions Patient Instructions: Alcohol Addiction Discharge Orders/Prescriptions Prescriptions: New midodrine 5 mg Tablet 5 mg PO TIDCM Qty: 90 RF: 2 Continued ferrous sulfate [iron] 325 MG tablet 325 mg PO DAILY RF: 0 tramadol 50 MG tablet 50 mg PO Q6H PRN PRN (Reason: Pain Score 1-10) RF: 0 potassium chloride 10 MEQ tablet extended release 10 meq PO BID RF: 0 magnesium oxide 400 MG tablet 400 mg PO DAILYCM RF: 0 ondansetron 4 MG tablet 4 mg PO Q8H PRN PRN (Reason: Nausea) Qty: 10 RF: 0 benzonatate 100 mg Capsule 100 mg PO BID PRN (Reason: Cough) RF: 0 metoclopramide HCl 10 MG tablet 10 mg PO 4X/DAY PRN (Reason: Nausea) RF: 0 folic acid 1 mg Tablet 1 mg PO DAILY RF: 0 Folbee 2.5-25-1 mg Tablet 1 tab PO DAILY RF: 0 thiamine HCl (vitamin B1) [Vitamin B-1] 100 mg Tablet 100 mg PO DAILY Qty: 30 RF: 0 omeprazole 40 mg Capsule,Delayed Release(Dr/Ec) 40 mg PO BID Qty: 60 RF: 2 furosemide 20 mg Tablet 20 mg PO DAILY Qty: 30 RF: 2 lactulose 10 GM/15 ML solution 30 ml PO TID Qty: 473 RF: 0 Changed nadolol 20 MG tablet 20 mg PO DAILY Qty: 30 RF: 2 spironolactone 50 mg tablet 50 mg PO DAILY Qty: 60 RF: 0 Referrals / Follow Up: Alice Cuellar DO [Primary Care Provider] - Within 2 Weeks Hugo Sheldon DO [STAFF PHYSICIAN] - In 1 Week (Decompensated alcoholic c irrhosis with upper GI bleed) Disposition Disposition (needs filled in before D/C Order can be placed): Home, Self Care
--- NOTE | 2020-11-15 11:32 | OP.EGD_ITS ---
Patient Name: Keyon Dillon Procedure Date: 11/15/2020 10:42 AM Date of : 1960 Age: 60 Procedure: Upper GI endoscopy Indications: Hematemesis, Recent gastrointestinal bleeding Providers: Hugo Sheldon DO Medicines: Propofol per Anesthesia Patient Profile: This is a 60 year old male. Refer to note in patient chart for documentation of history and physical. Patient has symptoms. Complications: No immediate complications. Procedure: Pre-Anesthesia Assessment: - Prior to the procedure, a History and Physical was performed, and patient medications and allergies were reviewed. The patient is competent. The risks and benefits of the procedure and the sedation options and risks were discussed with the patient. All questions were answered and informed consent was obtained. Patient identification and proposed procedure were verified by the physician in the pre-procedure area. Mental Status Examination: alert and oriented. Airway Examination: normal oropharyngeal airway and neck mobility. Respiratory Examination: clear to auscultation. CV Examination: normal. Prophylactic Antibiotics: The patient does not require prophylactic antibiotics. Prior Anticoagulants: The patient has taken no previous anticoagulant or antiplatelet agents. ASA Grade Assessment: III - A patient with severe systemic disease. After reviewing the risks and benefits, the patient was deemed in satisfactory condition to undergo the procedure. The anesthesia plan was to use moderate sedation / analgesia (conscious sedation). Immediately prior to administration of medications, the patient was re-assessed for adequacy to receive sedatives. The heart rate, respiratory rate, oxygen saturations, blood pressure, adequacy of pulmonary ventilation, and response to care were monitored throughout the procedure. The physical status of the patient was re-assessed after the procedure. After obtaining informed consent, the endoscope was passed under direct vision. Throughout the procedure, the patient's blood pressure, pulse, and oxygen saturations were monitored continuously. The Endoscope was introduced through the mouth, and advanced to the second part of duodenum. The upper GI endoscopy was accomplished with ease. The patient tolerated the procedure well. Moderate Sedation: Moderate (conscious) sedation was personally administered by an anesthesia professional. The following parameters were monitored: oxygen saturation, heart rate, blood pressure, and response to care. Scope In: 11:04:42 AM Scope Out: 11:15:51 AM Total Procedure Duration Time 0 hours 11 minutes 9 seconds Findings: Oozing large (> 5 mm) varices were found in the entire esophagus,. Stigmata of recent bleeding were evident and red suzanne signs were present. Two bands were successfully placed with complete eradication, resulting in deflation of varices. There was no bleeding during the procedure. Type 2 isolated gastric varices (IGV2, varices located in the body, antrum or around the pylorus) with no bleeding were found in the cardia. There were no stigmata of recent bleeding. The second portion of the duodenum was normal. Oozing grade III varices were found in the entire esophagus,. Stigmata of recent bleeding were evident and red suzanne signs were present. Two bands were successfully placed with complete eradication, resulting in deflation of varices. There was no bleeding during the procedure. Type 2 isolated gastric varices (IGV2, varices located in the body, antrum or around the pylorus) with no bleeding were found in the cardia. There were no stigmata of recent bleeding. The second portion of the duodenum was normal. Impression: - Bleeding large (> 5 mm) esophageal varices. Completely eradicated. Banded. - Type 2 isolated gastric varices (IGV2, varices located in the body, antrum or around the pylorus), without bleeding. - Normal second portion of the duodenum. - Bleeding grade III esophageal varices. Completely eradicated. Banded. - Type 2 isolated gastric varices (IGV2, varices located in the body, antrum or around the pylorus), without bleeding. - Normal second portion of the duodenum. - No specimens collected. Recommendation: - Return patient to hospital fam for ongoing care. - Follow an antireflux regimen for the rest of the patient's life. - Clear liquid diet today. - Use Zofran (ondansetron) 8 mg PO BID for 3 days. - Repeat upper endoscopy in 2 months for surveillance. - Return to GI office in 2 weeks. - Continue present medications. - No aspirin, ibuprofen, naproxen, or other non-steroidal anti-inflammatory drugs for 12 weeks. Procedure Code(s): --- Professional --- 11977, Esophagogastroduodenoscopy, flexible, transoral; with band ligation of esophageal/gastric varices CPT copyright 2017 [employer]. All rights reserved. The codes documented in this report are preliminary and upon data collection technician review may be revised to meet current compliance requirements. Hugo Sheldon DO 11/15/2020 11:31:24 AM This report has been signed electronically. Number of Addenda: 1 Note Initiated On: 11/15/2020 10:42 AM Addendum Number: 1 Addendum Date: 10/31/2021 3:53:26 PM MAC was used instead of moderate sedation for this patient. Hugo Sheldon DO 10/31/2021 3:53:37 PM This report has been signed electronically.
--- NOTE | 2020-11-15 11:33 | OP.CCLET_ITS ---
10/31/2021 Alice Cuellar [address] [facility] [place] [address] Re : Upper GI endoscopy procedure for Keyon Yund Dear Dr. Cuellar This procedure was performed on October. My impressions and recommendations are as follows: Impressions : - Bleeding large (> 5 mm) esophageal varices. Completely eradicated. Banded. - Type 2 isolated gastric varices (IGV2, varices located in the body, antrum or around the pylorus), without bleeding. - Normal second portion of the duodenum. - Bleeding grade III esophageal varices. Completely eradicated. Banded. - Type 2 isolated gastric varices (IGV2, varices located in the body, antrum or around the pylorus), without bleeding. - Normal second portion of the duodenum. - No specimens collected. Recommendations : - Return patient to hospital fam for ongoing care. - Follow an antireflux regimen for the rest of the patient's life. - Clear liquid diet today. - Use Zofran (ondansetron) 8 mg PO BID for 3 days. - Repeat upper endoscopy in 2 months for surveillance. - Return to GI office in 2 weeks. - Continue present medications. - No aspirin, ibuprofen, naproxen, or other non-steroidal anti-inflammatory drugs for 12 weeks. My findings are described in the full procedure note, which is enclosed. If I can be of further assistance, please feel free to contact me at . Sincerely, Hugo Sheldon, 11/15/2020 11:31:24 AM This report has been signed electronically.
--- NOTE | 2020-11-15 12:30 | PCM.DC.SUM ---
Providers Date of Admission: 11/15/20 Primary Care Physician: Dr. Alice Cuellar, DO Consultations 11/15/20 02:54 Consult: General Surgery Routine Consulting Provider: Hugo Sheldon Reason for Consult: GI bleed EMERGENT Consult: No MD Notified: Yes Date Notified: 11/15/20 Time Notified: 02:07 Method of Notification: Provider Initiated Comments:: completed by ER Reason For Visit: ACUTE GI BLEED Diagnosis Discharge Diagnosis (1) Acute GI bleeding: Status: Acute Code(s): K92.2 - Gastrointestinal hemorrhage, unspecified (2) Cirrhosis: Status: Chronic Code(s): K74.60 - Unspecified cirrhosis of liver Qualifiers: Hepatic cirrhosis type: alcoholic cirrhosis Ascites presence: unspecified Qualified Code(s): K70.30 - Alcoholic cirrhosis of liver without ascites (3) Thrombocytopenia: Status: Chronic Code(s): D69.6 - Thrombocytopenia, unspecified Medications at Discharge Home Medications ferrous sulfate [iron] 325 mg PO DAILY 03/20/18 nadolol 40 mg PO DAILY 03/20/18 lactulose 30 ml PO TID 03/12/20 magnesium oxide 400 mg PO DAILYCM 03/12/20 potassium chloride 10 meq PO BID 03/12/20 tramadol 50 mg PO Q6H PRN PRN 03/12/20 ondansetron 4 mg PO Q8H PRN PRN #10 tab 04/27/20 benzonatate 100 mg PO BID PRN 09/21/20 metoclopramide HCl 10 mg PO 4X/DAY PRN 09/21/20 folic acid 1 mg PO DAILY 11/15/20 folic acid-vit B6-vit B12 [Folbee] 1 tab PO DAILY 11/15/20 furosemide 20 mg PO DAILY 11/15/20 omeprazole 40 mg PO BID 11/15/20 spironolactone 25 mg PO BID 11/15/20 thiamine HCl (vitamin B1) [Vitamin B-1] 100 mg PO DAILY 11/15/20 Weight / BMI Weight Weight: 184 lb 15.485 oz Body Mass Index (BMI) 25.7 ABG / Lab / Microbiology Data Result Diagrams: 11/15/20 06:24 11/14/20 23:45 Laboratory: Laboratory Results - last 24 hr 11/14/20 23:45: PT 16.6 H, INR 1.4 11/14/20 23:45: Blood Type A NEGATIVE, Antibody Screen NEGATIVE 11/14/20 23:45: WBC 7.4, RBC 3.54 L, Hgb 12.0 L, Hct 34.9 L, MCV 98.6 H, MCH 33.9 H, MCHC 34.4, RDW Std Deviation 52.4 H, RDW Coeff of Delilah 14.3, Plt Count 50 L*, MPV 10.3, Immature Gran % (Auto) 0.300, Neut % (Auto) 73.1 H, Lymph % (Auto) 10.4 L, [place] % (Auto) 15.5 H, Eos % (Auto) 0.4, Baso % (Auto) 0.3, Absolute Neuts (auto) 5.4, Absolute Lymphs (auto) 0.77 L, Nucleated RBC % 0, Differential Comment SCANNED, Platelet Estimate MOD 11/14/20 23:45: Sodium 136, Potassium 4.1, Chloride 106, Carbon Dioxide 21.0, Anion Gap 9, BUN 6 L, Creatinine 0.59 L, Estim Creat Clear Calc 141.81, Est GFR (MDRD) Af Amer 179, Est GFR (MDRD) Non-Af 148, BUN/Creatinine Ratio 10.1, Glucose 175 H, Calcium 7.5 L, Total Bilirubin 1.00, AST 39 H, ALT 28, Alkaline Phosphatase 91, Total Protein 6.4, Albumin 2.4 L, Globulin 4.0, Albumin/Globulin Ratio 0.6 L, Lipase 414 H 11/15/20 02:15: WBC 6.4, RBC 3.53 L, Hgb 11.9 L, Hct 35.7 L, MCV 101.1 H, MCH 33.7 H, MCHC 33.3, RDW Std Deviation 54.0 H, RDW Coeff of Delilah 14.4, Plt Count 37 L*, MPV 10.8, Immature Gran % (Auto) 0.300, Neut % (Auto) 81.7 H, Lymph % (Auto) 7.8 L, [place] % (Auto) 10.0, Eos % (Auto) 0.0, Baso % (Auto) 0.2, Absolute Neuts (auto) 5.3, Absolute Lymphs (auto) 0.50 L, Nucleated RBC % 0.3, Diff Path Review June11/15/20 06:24: Hgb 10.9 L, Hct 31.8 L Microbiology: Microbiology 11/15/20 09:49 Nasal Secretion SARS-CoV-2 Antigen (Rapid) - Final Radiography Diagnostic Testing: Radiology Impression Chest X-Ray 11/14/20 00:20 IMPRESSION: No radiographic evidence of acute cardiopulmonary disease. at 0146 Reported and signed by: Kendall Kern MD Electronically Signed: Kendall Kern MD at 1:45 EDT Tel , Service support , Discharge Plan Admission Admit Date/Time: 11/15/20 01:51 Attending Provider: Carl Bhagat Primary Care Provider: Alice Cuellar Consulting Providers: Friend,Hugo Instructions Patient Instructions: ED Chest Pain, Noncardiac Discharge Orders/Prescriptions Prescriptions: No Action nadolol 20 MG tablet 40 mg PO DAILY RF: 0 ferrous sulfate [iron] 325 MG tablet 325 mg PO DAILY RF: 0 tramadol 50 MG tablet 50 mg PO Q6H PRN PRN (Reason: Pain Score 1-10) RF: 0 potassium chloride 10 MEQ tablet extended release 10 meq PO BID RF: 0 magnesium oxide 400 MG tablet 400 mg PO DAILYCM RF: 0 lactulose 10 GM/15 ML solution 30 ml PO TID RF: 0 ondansetron 4 MG tablet 4 mg PO Q8H PRN PRN (Reason: Nausea) Qty: 10 RF: 0 benzonatate 100 mg Capsule 100 mg PO BID PRN (Reason: Cough) RF: 0 metoclopramide HCl [metoclopramide HCl] 10 MG tablet 10 mg PO 4X/DAY PRN (Reason: Nausea) RF: 0 thiamine HCl (vitamin B1) [Vitamin B-1] 100 mg Tablet 100 mg PO DAILY RF: 0 omeprazole 40 mg Capsule,Delayed Release(Dr/Ec) 40 mg PO BID RF: 0 folic acid 1 mg Tablet 1 mg PO DAILY RF: 0 furosemide 20 mg Tablet 20 mg PO DAILY RF: 0 spironolactone 50 mg tablet 25 mg PO BID RF: 0 Folbee 2.5-25-1 mg Tablet 1 tab PO DAILY RF: 0 Referrals / Follow Up: Alice Cuellar DO [Primary Care Provider] - Disposition Discharge Orders: Discharge Patient (Routine); Ordered 11/15/20 Ordered By: Dr. Hugo Sheldon
[2020-11-15 12:31] LABS: Hematocrit 29.9 % (40-54); Hemoglobin 10.1 g/dL (13.0-16.5)
[2020-11-15 12:58] LABS: POSITIVE COUNT YES
[2020-11-15 13:03] LABS: Platelet Count 50 K/mm3 (150-450)
[2020-11-15 13:14] LABS: Pathologist Review Reviewed
[2020-11-15 13:15] LABS: Pathologist Review Reviewed
[2020-11-15 13:35] LABS: Differential Indicated SCAN CRITERIA MET
[2020-11-15] MEDS: Nadolol 20 MG Tablet PO (13:42)
[2020-11-15] MEDS: Midodrine HCl 5 MG Tablet PO ×2 (13:42→18:00)
--- NOTE | 2020-11-15 13:46 | PCM.PN.HOSP ---
Subjective Subjective The patient admitted for upper GI bleed secondary to esophageal varices from the decompensated cirrhosis. EGD shows large with inflammatory esophageal bleeding increases and was banded. Earlier Dr. Del Cid asked me to discharge but patient is still very weak, worn out and has difficulty sitting up or getting up from the bed. Therefore, patient is not discharged Objective Data Objective Data Vital Signs: Vital Signs Temp Pulse Resp BP Pulse Ox 97.1 F L 78 16 112/66 94 11/15/20 13:02 11/15/20 13:02 11/15/20 13:02 11/15/20 13:02 11/15/20 13:02 Oxygen Delivery Method Room Air Weight: 184 lb 15.485 oz Body Mass Index (BMI) 25.7 Intake & Output: Intake and Output for Last 24 Hours 11/13/20 11/14/20 11/15/20 23:59 23:59 23:59 Intake Total 1435 / 1435 Balance 1435 / 1435 Lab / Micro Data Result Diagrams: 11/15/20 12:08 11/14/20 23:45 Labs: Laboratory Results - last 24 hr 11/14/20 23:45: PT 16.6 H, INR 1.4 11/14/20 23:45: Blood Type A NEGATIVE, Antibody Screen NEGATIVE 11/14/20 23:45: WBC 7.4, RBC 3.54 L, Hgb 12.0 L, Hct 34.9 L, MCV 98.6 H, MCH 33.9 H, MCHC 34.4, RDW Std Deviation 52.4 H, RDW Coeff of Delilah 14.3, Plt Count 50 L*, MPV 10.3, Immature Gran % (Auto) 0.300, Neut % (Auto) 73.1 H, Lymph % (Auto) 10.4 L, [place] % (Auto) 15.5 H, Eos % (Auto) 0.4, Baso % (Auto) 0.3, Absolute Neuts (auto) 5.4, Absolute Lymphs (auto) 0.77 L, Nucleated RBC % 0, Differential Comment SCANNED, Diff Path Review Reviewed, Platelet Estimate MOD 11/14/20 23:45: Sodium 136, Potassium 4.1, Chloride 106, Carbon Dioxide 21.0, Anion Gap 9, BUN 6 L, Creatinine 0.59 L, Estim Creat Clear Calc 141.81, Est GFR (MDRD) Af Amer 179, Est GFR (MDRD) Non-Af 148, BUN/Creatinine Ratio 10.1, Glucose 175 H, Calcium 7.5 L, Total Bilirubin 1.00, AST 39 H, ALT 28, Alkaline Phosphatase 91, Total Protein 6.4, Albumin 2.4 L, Globulin 4.0, Albumin/Globulin Ratio 0.6 L, Lipase 414 H 11/15/20 02:15: WBC 6.4, RBC 3.53 L, Hgb 11.9 L, Hct 35.7 L, MCV 101.1 H, MCH 33.7 H, MCHC 33.3, RDW Std Deviation 54.0 H, RDW Coeff of Delilah 14.4, Plt Count 37 L*, MPV 10.8, Immature Gran % (Auto) 0.300, Neut % (Auto) 81.7 H, Lymph % (Auto) 7.8 L, [place] % (Auto) 10.0, Eos % (Auto) 0.0, Baso % (Auto) 0.2, Absolute Neuts (auto) 5.3, Absolute Lymphs (auto) 0.50 L, Nucleated RBC % 0.3, Diff Path Review Reviewed 11/15/20 06:24: Hgb 10.9 L, Hct 31.8 L 11/15/20 12:08: Hgb 10.1 L, Hct 29.9 L 11/15/20 12:08: Plt Count 50 L*, Diff Path Review June Micro: Microbiology 11/15/20 09:49 Nasal Secretion SARS-CoV-2 Antigen (Rapid) - Final Radiography Diagnostic Testing: Radiology Impression Chest X-Ray 11/14/20 00:20 IMPRESSION: No radiographic evidence of acute cardiopulmonary disease. at 0146 Reported and signed by: Kendall Kern MD Electronically Signed: Kendall Kern MD at 1:45 EDT Tel , Service support , Physical Exam Narrative General: Awake, mild lethargic, oriented x3, Cooperative HEENT: Atraumatic, PERRLA, EOMI, Normocephalic Oral: No Gingival or Mucosal Lesions/ Ulcerations Neck: Supple, No JVD, Negative Carotid Bruits Lungs: Air entry diminished in bilateral lung bases. No crepitation or rhonchi. Cardiovascular: Regular rate, Regular Rhythm, Normal S1, Normal S2, No murmurs Abdomen: Mild tenderness over right upper quadrant. Mild ascites. Bowel Sounds Present, Soft, : No renal angle tenderness. No suprapubic tenderness. Extremities: No edema, Capillary Refill Less than 3 Seconds Skin: No rashes, No breakdown Musculoskeletal: No Tenderness to Palpation of Joints or Extremities Neurological: Lethargic, cranial nerves II-XII grossly intact, DTR 2+/4 a Psych/Mental Status: Flat affect. Assessment & Plan Assessment/Plan (1) Acute GI bleeding: PLAN: Acute GI bleed secondary to esophageal varices due to decompensated alcoholic cirrhosis: Patient is admitted in PCU. Patient had EGD. Upper GI bleed has been controlled by banding. Patient has pancytopenia with chronic thrombocytopenia patient had platelet transfusion and currently platelet count is 50,000. On IV Protonix drip changed to 40 mg twice daily. On octreotide drip. Discussed with the GI and consult appreciated. PT and OT. Anticipate for discharge tomorrow on Protonix 40 mg twice daily, nadolol, spironolactone, Lasix and midodrine. Decompensated cirrhosis with ascites, chronic thrombocytopenia, hepatic encephalopathy not in coma, esophageal varices, gastric varices: EGD showed large bleeding more than 5 mm esophageal varices which was banded. Type II isolated gastric varices without bleeding. Bleeding grade 3 esophageal varices banded. Normal D2. Alcohol cessation advised Pancytopenia: Currently hemoglobin platelet count are stable. Currently no further platelet transfusion is indicated. Monitor CBC tomorrow a.m. Pseudohypocalcemia Calcium 7.5. Albumin of 2.4. Corrected calcium is 8.8. DVT prophylaxis: SCD ordered. Pharmacological prophylaxis contraindicated Total time of the visit including total time spent in counseling or coordination of care, (more than 50% of the total time, spent in obtaining medical information from nurses and other ancillary care providers,explaining to the patient about labs, imaging, diagnosis and management), discussion with GI oracle [employer]ion consultant, review of labs and imaging is 30 minutes. Charges/Coding Visit Charges Inpatient E&M: 19322 Subs Hosp L3
--- NOTE | 2020-11-15 17:39 | PCS.PANDOC ---
PANDEMIC DOCUMENTATION INITIATED: Date: 10/15/2020 Time: 190
[2020-11-15 18:22] LABS: Hematocrit 33.6 % (40-54); Hemoglobin 11.4 g/dL (13.0-16.5)
[2020-11-16 02:03] VITALS: PULSE 56
[2020-11-16 04:04] VITALS: BP 107/63; PULSE 62; RESP 18; TEMP 36.6; O2SAT 100
[2020-11-16 06:47] LABS: Anion Gap 4 (5-15); BUN 8 mg/dL (7-18); BUN/Creat Ratio 13.5 RATIO (10-20); Calcium,Total 7.7 mg/dL (8.5-10.1); Chloride 111 mmol/L (98-107); Creatinine, Serum 0.59 mg/dL (0.70-1.30); EST Glomerular Filtration Rate 149 mL/min (>60); Est Glom Filt Rate - Afr Amer 180 mL/min (>60); Estimated Creatinine Clearance 141.81 ml/min; Glucose 118 mg/dL (74-106); Potassium 4.3 mmol/L (3.5-5.1); Sodium Level 135 mmol/L (136-145)
[2020-11-16 07:13] VITALS: PULSE 52
[2020-11-16 08:00] VITALS: O2SAT 93
[2020-11-16] MEDS: Midodrine HCl 5 MG Tablet PO ×2 (08:40→12:16)
[2020-11-16] MEDS: Morphine 2 MG/ML Syringe IV (09:52)
[2020-11-16] MEDS: Nadolol 20 MG Tablet PO (09:54)
[2020-11-16 10:00] VITALS: BP 113/67; PULSE 56; RESP 14; TEMP 36.9; O2SAT 93
--- NOTE | 2020-11-16 10:10 | CASEMGMT ---
VAL NEGRON assessment: Face to Face with patient for initial transition planning/care coordination assessment. VAL NEGRON introduced self and role at [facility], pt voices understanding and consents to assessment. Pt is sitting up in chair in no distress. Pt is A/Ox4 and answers all questions appropriately. Care providers, pharmacy, and demographics verified. Presentation: Pt c/o vomiting blood Admitting dx: Acute GI bleed PCP: [facility] Specialists: Pt states no current specialists. Preferred Pharmacy: [facility] Insurance: [employer] Prescription Benefit: [employer] Living Will/HPOA: Pt states no LW/HPOA and declines AD info. LNOK: Madison Dillon, Living Arrangements: Pt states lives with in 3 story apt with elevator and states no concerns at home. Pt states is independent with ADL's. Transportation: Pt states friends drive or takes taxi and states no transportation concerns. DME/HHC: Pt states has the following DME: cane, walker, grab bars, and shower chair. Pt states no need for any further DME. Pt states no hx of HHC but has been to [facility] in past. Pt states no concerns with going home at time of discharge. Pt is on disability. Pt states smokes about a pack of cigarettes every week and states drinks about 6 beers/week. Pt states no further concerns/needs. CM to follow for any further discharge planning/needs. Advised pt to ask for CM if any further questions/concerns/needs arise, voices understanding. Pt Goal: Home [place]
--- NOTE | 2020-11-16 11:18 | PCM.DC ---
Discharge Instructions Diet Discharge Diet: No restrictions Activity Discharge Activity: Return to Normal Activity Weight Bearing Status: Weight bearing as tolerated Follow Up Care Test Results: Test results from this visit will be discussed in further detail at your follow-up appointment, if applicable. Discharge Plan Admission Admit Date/Time: 11/15/20 01:51 Primary Reason for Your Visit: Decompensated alcoholic cirrhosis with upper GI bleed Attending Provider: Kendall Mcdaniels Primary Care Provider: Alice Cuellar Consulting Providers: Hugo Sheldon Instructions Patient Instructions: Alcohol Addiction Discharge Orders/Prescriptions Prescriptions: New midodrine 5 mg Tablet 5 mg PO TIDCM Qty: 90 RF: 2 tramadol 50 mg tablet 50 mg PO Q6H PRN (Reason: pain) Qty: 20 RF: 0 Continued ferrous sulfate [iron] 325 MG tablet 325 mg PO DAILY RF: 0 tramadol 50 MG tablet 50 mg PO Q6H PRN PRN (Reason: Pain Score 1-10) RF: 0 potassium chloride 10 MEQ tablet extended release 10 meq PO BID RF: 0 magnesium oxide 400 MG tablet 400 mg PO DAILYCM RF: 0 ondansetron 4 MG tablet 4 mg PO Q8H PRN PRN (Reason: Nausea) Qty: 10 RF: 0 benzonatate 100 mg Capsule 100 mg PO BID PRN (Reason: Cough) RF: 0 metoclopramide HCl 10 MG tablet 10 mg PO 4X/DAY PRN (Reason: Nausea) RF: 0 folic acid 1 mg Tablet 1 mg PO DAILY RF: 0 Folbee 2.5-25-1 mg Tablet 1 tab PO DAILY RF: 0 thiamine HCl (vitamin B1) [Vitamin B-1] 100 mg Tablet 100 mg PO DAILY Qty: 30 RF: 0 omeprazole 40 mg Capsule,Delayed Release(Dr/Ec) 40 mg PO BID Qty: 60 RF: 2 furosemide 20 mg Tablet 20 mg PO DAILY Qty: 30 RF: 2 lactulose 10 GM/15 ML solution 30 ml PO TID Qty: 473 RF: 0 Changed nadolol 20 MG tablet 20 mg PO DAILY Qty: 30 RF: 2 spironolactone 50 mg tablet 50 mg PO DAILY Qty: 60 RF: 0 Referrals / Follow Up: Alice Cuellar DO [Primary Care Provider] - Within 2 Weeks Hugo Sheldon DO [STAFF PHYSICIAN] - In 1 Week (Decompensated alcoholic cirrhosis with upper GI bleed) Disposition Disposition (needs filled in before D/C Order can be placed): Home, Self Care
[2020-11-16 14:40] LABS: Pathologist Review Reviewed
--- NOTE | 2020-11-16 20:39 | DS.PCM_ITS ---
Providers Date of Admission: 11/15/20 Date of Discharge: 11/16/20 Primary Care Physician: Dr. Alice Cuellar, Consultations 11/15/20 02:54 Consult: General Surgery Routine Consulting Provider: Hugo Sheldon Reason for Consult: GI bleed EMERGENT Consult: No MD Notified: Yes Date Notified: 11/15/20 Time Notified: 02:07 Method of Notification: Provider Initiated Comments:: completed by ER Reason For Visit: ACUTE GI BLEED Diagnosis Discharge Diagnosis (1) Acute GI bleeding: Status: Acute Code(s): K92.2 - Gastrointestinal hemorrhage, unspecified Plan: 1. Acute upper gastrointestinal hemorrhage secondary to esophageal varices due to alcoholic cirrhosis #2 alcoholic cirrhosis #3 chronic thrombocytopenia due to alcoholic cirrhosis #4 chronic alcoholism Medications at Discharge Home Medications ferrous sulfate [iron] 325 mg PO DAILY 03/20/18 magnesium oxide 400 mg PO DAILYCM 03/12/20 potassium chloride 10 meq PO BID 03/12/20 ondansetron 4 mg PO Q8H PRN PRN #10 tab 04/27/20 benzonatate 100 mg PO BID PRN 09/21/20 metoclopramide HCl 10 mg PO 4X/DAY PRN 09/21/20 Folbee 1 tab PO DAILY 11/15/20 folic acid 1 mg PO DAILY 11/15/20 furosemide 20 mg PO DAILY #30 tab 11/15/20 lactulose 30 ml PO TID #473 ml 11/15/20 midodrine 5 mg PO TIDCM #90 tab 11/15/20 nadolol 20 mg PO DAILY #30 tab 11/15/20 omeprazole 40 mg PO BID #60 cap 11/15/20 spironolactone 50 mg PO DAILY #60 tab 11/15/20 thiamine HCl (vitamin B1) [Vitamin B-1] 100 mg PO DAILY #30 tab 11/15/20 tramadol 50 mg PO Q6H PRN #20 tab 11/16/20 Hospital Course Operations None Procedures EGD (With esophageal variceal banding) Summary of Care Provided Minutes Spent on Discharge: 33 Hospital Course: This 60-year-old white male was seen in the emergency room at [facility] with a chief complaint of hematemesis that started 1 hour before being seen in the emergency room. Patient received Reglan in the emergency room, his hematemesis was controlled, IV Protonix was administered and the patient was admitted to the hospital and started on an octreotide bolus and drip. Patient was seen in consultation with gastroenterology who performed an EGD with banding of esophageal varices. Patient did well after his procedure and there was no recurrent bleeding. On 11/16/2020, patient was seen and examined: On examination he appeared in good health and spirits. Vital signs as documented. Skin warm and dry and without overt rashes. Neck without JVD, neck was supple, trachea midline, thyroid was normal. Lungs clear bilaterally, normal air movement was noted. Heart exam notable for regular rhythm, normal sounds and absence of murmurs, rubs or gallops. Abdomen unremarkable and without evidence of organomegaly, masses, or abdominal aortic enlargement. Bowel sounds are present, abdomen is not distended. Extremities nonedematous, no cyanosis was noted, no clubbing was noted. Neuro: Cranial nerves II through XII are grossly intact, no focal motor deficits were noted, sensation to light touch and pinprick intact, motor exam 5/5 throughout. Psych: Patient is alert and oriented x3, he does not appear anxious or depressed, he does not appear agitated. Patient was discharged home in stable condition on 11/16/2020, he was cautioned not to drink. Weight / BMI Weight Weight: 83.9 kg Body Mass Index (BMI) 25.7 ABG / Lab / Microbiology Data Result Diagrams: 11/15/20 18:07 11/16/20 05:54 Laboratory: Laboratory Results - last 24 hr 11/15/20 12:08: Diff Path Review Reviewed 11/16/20 05:54: Sodium 135 L, Potassium 4.3, Chloride 111 H, Carbon Dioxide 20.0 L, Anion Gap 4 L, BUN 8, Creatinine 0.59 L, Estim Creat Clear Calc 141.81, Est GFR (MDRD) Af Amer 180, Est GFR (MDRD) Non-Af 149, BUN/Creatinine Ratio 13.5, Glucose 118 H, Calcium 7.7 L Microbiology: Microbiology 11/15/20 09:49 Nasal Secretion SARS-CoV-2 Antigen (Rapid) - Final D/C Instructions Discharge Diet: No restrictions Weight Bearing Status: Weight bearing as tolerated Call your doctor if you observe: Fever of 101 or Higher, Coldness, Increased Pain, Numbness or Tingling, Change in Color, Inability to urinate, Inability to have a bowel movement, Shortness of breath, Dizziness, Fainting spells, Swelling in the ankles, Chest pain, Prolonged hiccupping, Increased palpitations (ir regular heartbeat), Calf discomfort and Uncontrolled pain Meaningful Use Info Meaningful Use Diagnoses (Choose all that apply): None applicable Discharge Plan Admission Admit Date/Time: 11/15/20 01:51 Primary Reason for Your Visit: Decompensated alcoholic cirrhosis with upper GI bleed Attending Provider: Kendall Mcdaniels Primary Care Provider: Alice Cuellar Consulting Providers: FriendHugo Instructions Patient Instructions: Alcohol Addiction Discharge Orders/Prescriptions Prescriptions: New midodrine 5 mg Tablet 5 mg PO TIDCM Qty: 90 RF: 2 tramadol 50 mg tablet 50 mg PO Q6H PRN (Reason: pain) Qty: 20 RF: 0 Continued ferrous sulfate [iron] 325 MG tablet 325 mg PO DAILY RF: 0 potassium chloride 10 MEQ tablet extended release 10 meq PO BID RF: 0 magnesium oxide 400 MG tablet 400 mg PO DAILYCM RF: 0 ondansetron 4 MG tablet 4 mg PO Q8H PRN PRN (Reason: Nausea) Qty: 10 RF: 0 benzonatate 100 mg Capsule 100 mg PO BID PRN (Reason: Cough) RF: 0 metoclopramide HCl 10 MG tablet 10 mg PO 4X/DAY PRN (Reason: Nausea) RF: 0 folic acid 1 mg Tablet 1 mg PO DAILY RF: 0 Folbee 2.5-25-1 mg Tablet 1 tab PO DAILY RF: 0 thiamine HCl (vitamin B1) [Vitamin B-1] 100 mg Tablet 100 mg PO DAILY Qty: 30 RF: 0 omeprazole 40 mg Capsule,Delayed Release(Dr/Ec) 40 mg PO BID Qty: 60 RF: 2 furosemide 20 mg Tablet 20 mg PO DAILY Qty: 30 RF: 2 lactulose 10 GM/15 ML solution 30 ml PO TID Qty: 473 RF: 0 Changed nadolol 20 MG tablet 20 mg PO DAILY Qty: 30 RF: 2 spironolactone 50 mg tablet 50 mg PO DAILY Qty: 60 RF: 0 Discontinued tramadol 50 MG tablet 50 mg PO Q6H PRN PRN (Reason: Pain Score 1-10) RF: 0 Referrals / Follow Up: Malys,Alice, DO [Primary Care Provider] - Within 2 Weeks FriendHugo DO [STAFF PHYSICIAN] - In 1 Week (Decompensated alcoholic cirrhosis with upper GI bleed) Disposition Disposition (needs filled in before D/C Order can be placed): Home, Self Care Charges/Coding Visit Charges Inpatient E&M: 09380 Disch Hosp
--- NOTE | 2020-11-19 16:46 | CASEMGMT ---
[facility] Discharge Follow-up Phone Call: ENEDINA: Jenn Strata: 4 Call Date: 11/19/20 Discharge Date: 11/16/20 Time of Call: 1640 Admitting Diagnosis: GI Bleed This [facility]GR[facility] contacted pt for discharge follow-up. Pt states he has been tired since being discharged. Pt reports having difficulty eating, is trying to drink a couple of ensures daily, and did have an episode of vomiting last pm after drinking some tea. Pt denies any blood in the emesis. Pt states he obtained his prescriptions and is taking them as ordered. Pt states he has not made his follow-up appointments. Encouraged pt to contact his PCP and Dr. Sheldon to follow-up and to let them know that he is continuing to experience difficulties with PO intake. Pt expressed understanding. Pt denied any further questions or concerns. Narda More RN CM
== END 2020-11-16 12:42 | disposition home or self-care (01) | DRG 369 ==
LOC: ED 11-15 02:19 → PCU 11-15 02:33
PROVIDERS: Internal Medicine Gastroenterology; Admitting Provider Hospitalist; Emergency Provider Emergency Medicine; PCP Family Medicine; Visit Provider Internal Medicine
PROC: 0DJ08ZZ Inspection of Upper Intestinal Tract, Via Natural or Artificial Opening Endoscopic (ICD-10-PCS; CPT 43235; principal; 2020-11-15 10:25)
DX: I85.11 Secondary esophageal varices with bleeding (principal); D61.818 Other pancytopenia; K70.31 Alcoholic cirrhosis of liver with ascites; I86.4 Gastric varices; D69.59 Other secondary thrombocytopenia; I10 Essential (primary) hypertension; G89.29 Other chronic pain; I73.9 Peripheral vascular disease, unspecified; F17.210 Nicotine dependence, cigarettes, uncomplicated; Z86.79 Personal history of other diseases of the circulatory system; Y90.9 Presence of alcohol in blood, level not specified
CPT/HCPCS: 36415; 71045; 80048; 80053; 83690; 85014; 85018; 85025; 85049; 85610; 86644; 86850; 86900; 86901; 86965; 87426; 97166; 97802; 99284; 99406; J7030; J7120; P9035; A4216; J2354; J2405; J3490

== ENCOUNTER → 2020-11-27 11:47 | Outpatient (CLI) | payer OTHER, SELFPAY ==
[2020-11-27 12:59] LABS: Absolute Lymphocyte Count 1.13 X10^3/uL (0.83-4.51); Absolute Neutrophil Count 1.2 X10^3/uL (2.0-7.7); Basophil# 0.02 X10^3/uL; Basophil% 0.7 % (0-1); Eosinophil# 0.06 X10^3/uL; Hematocrit 34.9 % (40-54); Hemoglobin 11.4 g/dL (13.0-16.5); Lymphocyte # 1.13 X10^3/ul (0.83-4.51); Lymphocyte % 37.9 % (19-41); Mean Corp Hgb Conc 32.7 g/dL (32-36); Mean Corpuscular Hgb 32.3 pg (27.0-32.0); Mean Corpuscular Volume 98.9 fL (80-94); Mean Platelet Vol. 10.6 fl (6.2-12.0); Monocyte# 0.57 X10^3/uL; Monocyte% 19.1 % (0-10); NRBC Flagged by Analyzer 0 % (0-5); Neutrophil % 40.3 % (47-70); POSITIVE COUNT YES; RBC Distribution Width CV 14.2 % (11.6-14.6); RBC Distribution Width SD 51.7 fl (35.1-43.9); Red Blood Count 3.53 M/mm3 (4.6-6.2)
[2020-11-27 13:01] LABS: Platelet Count 62 K/mm3 (150-450)
[2020-11-27 13:10] LABS: International Normalized Ratio 1.4; Prothrombin Time (Protime)PT. 16.2 SECONDS (11.7-14.9)
[2020-11-27 13:35] LABS: ALB/GLOB Ratio 0.7 RATIO (0.9-2.4); AST(SGOT) 34 U/L (15-37); Alanine Aminotransfer ALT/SGPT 26 U/L (16-61); Albumin, Serum 2.7 g/dL (3.2-5.0); Alkaline Phosphatase 88 U/L (45-117); Anion Gap 7 (5-15); BUN 7 mg/dL (7-18); BUN/Creat Ratio 14.3 RATIO (10-20); Calcium,Total 8.3 mg/dL (8.5-10.1); Chloride 102 mmol/L (98-107); Creatinine, Serum 0.49 mg/dL (0.70-1.30); EST Glomerular Filtration Rate 184 mL/min (>60); Est Glom Filt Rate - Afr Amer 223 mL/min (>60); Glucose 127 mg/dL (74-106); Potassium 3.8 mmol/L (3.5-5.1); Protein, Total 6.7 g/dL (6.4-8.2); Sodium Level 137 mmol/L (136-145)
== END ==
PROVIDERS: PCP Family Medicine; Referring Provider Internal Medicine Gastroenterology; Visit Provider Internal Medicine Gastroenterology
DX: F10.220 Alcohol dependence with intoxication, uncomplicated (principal); Z87.898 Personal history of other specified conditions
CPT/HCPCS: 36415; 80053; 85025; 85610

== ENCOUNTER 2020-12-03 00:40 | Inpatient (IN) | payer OTHER, SELFPAY ==
[2020-12-03] VITALS (12 sets, daily range): BP systolic 94–143; BP diastolic 44–79; PULSE 55–107; RESP 12–83; TEMP 36.3–36.8; O2SAT 86–100; BMI 26.0; BMI 25.2
--- NOTE | 2020-12-03 00:53 | EDS_ITS ---
HPI HPI - GI History of Present Illness Chief Complaint: Nausea/Vomiting Informant: patient Abdominal Pain/Flank Pain Onset: Today Context: Gradual Onset Timing: Intermittent Current Severity: Mild Maximum Severity: Mild Nausea/Vomiting/Emesis GI Symptom: Positive for Nausea and Vomiting Onset: Today Quality: Positive for Hematemesis Severity: Mild Episodes: 2 Associated Symptoms Associated Symptoms: Negative for Dysuria, Frequency, Hematuria and Urgency Narrative Narrative: 60-year-old male history of alcoholic cirrhosis with esophageal varices and history of alcohol abuse. Several weeks ago had a banding procedure done by Dr. Sheldon the tread tuber machine operator. Patient states that he was nauseated and then threw up with bright red blood in the toilet bowl. He denies any fever or chills. He is not on any blood thinners. Prior similar symptoms: Yes Recent Illness/Hospitalization: Yes [facility] Medical History Alcoholic cirrhosis Aortic aneurysm without rupture Benign essential hypertension Chronic pain Cirrhosis Diastolic dysfunction Esophageal varices in alcoholic cirrhosis History of esophageal varices Liver cirrhosis, alcoholic Near syncope Peripheral arterial disease Smoker Thrombocytopenia Home Medications ferrous sulfate [iron] 325 mg PO DAILY 03/20/18 [History Last Taken 03/11/20] magnesium oxide 400 mg PO DAILYCM 03/12/20 [History Last Taken 03/11/20] potassium chloride 10 meq PO BID 03/12/20 [History Last Taken 03/11/20] ondansetron 4 mg PO Q8H PRN PRN #10 tab 04/27/20 [Rx Last Taken Unknown] benzonatate 100 mg PO BID PRN 09/21/20 [History Last Taken Unknown] metoclopramide HCl 10 mg PO 4X/DAY PRN 09/21/20 [History Last Taken Unknown] Folbee 1 tab PO DAILY 11/15/20 [History Last Taken Unknown] folic acid 1 mg PO DAILY 11/15/20 [History Last Taken Unknown] furosemide 20 mg PO DAILY #30 tab 11/15/20 [Rx Last Taken Unknown] lactulose 30 ml PO TID #473 ml 11/15/20 [Rx Last Taken Unknown] midodrine 5 mg PO TIDCM #90 tab 11/15/20 [Rx Last Taken Unknown] nadolol 20 mg PO DAILY #30 tab 11/15/20 [Rx Last Taken Unknown] omeprazole 40 mg PO BID #60 cap 11/15/20 [Rx Last Taken Unknown] spironolactone 50 mg PO DAILY #60 tab 11/15/20 [Rx Last Taken Unknown] thiamine HCl (vitamin B1) [Vitamin B-1] 100 mg PO DAILY #30 tab 11/15/20 [Rx Last Taken Unknown] tramadol 50 mg PO Q6H PRN #20 tab 11/16/20 [Rx Last Taken Unknown] Allergy/AdvReac Type Severity Reaction Status Date / Time No Known Allergies Allergy Verified 12/03/20 00:40 Family History Mother Cancer Father Lupus Surgical History History of aortic aneurysm repair Social History household members: none Smoking Status: Current some day smoker tobacco type: cigarettes alcohol intake: current alcohol intake frequency: a few times a week substance use type: does not use ROS ROS ED ROS Narrative Nausea and vomiting. Review of Systems ROS Unobtainable: Denies due to encephalopathy Constitutional Constitutional ED: Denies chills or fever(s) ENT ENT ED: Denies ear pain Cardiovascular Cardiovascular: Denies chest pain Respiratory/Chest Respiratory/Chest: Denies cough or dyspnea Gastrointestinal Gastrointestinal: Reports nausea and vomiting; Denies abdominal pain Genitourinary Genitourinary ED: Denies dysuria or hematuria Musculoskeletal Musculoskeletal: Denies myalgias Integumentary Denies rash Neurologic Neurologic: Denies headache(s) Psychiatric Psychiatric: Denies depression Endocrine Endocrinology: Denies polyuria Hematologic/Lymphatic Hematologic/Lymphatic: Denies easy bruising Allergic/Immunologic Allergic/Immunologic ED: Denies urticaria EXAM Physical Exam Narrative Exam Narrative: 6-year-old male no acute distress vital signs stable afebrile. Lungs are clear. Heart regular rhythm. Abdomen soft nondistended. No peritoneal signs. Moving all 4 extremities. Chronic venous stasis changes. Neurologically is awake and alert with no focal motor deficits. Const Vital Signs: 12/03/20 00:41 12/03/20 01:10 12/03/20 01:17 Temperature 98.2 F Temperature Source Temporal Pulse Rate 107 H Respiratory Rate 12 Blood Pressure 143/79 H Blood Pressure Mean 100 Pulse Ox 97 86 95 Oxygen Delivery Method Room Air Room Air Nasal Cannula Oxygen Flow Rate (L/min) 2 Positive well nourished, well developed and unkempt; Negative for obese, cachectic or contractures General Appearance ED: unkempt, well developed and NAD; Negative for cachectic or contractures Nutritional Appearance: Negative for cachectic or obese HEENT Reports moist mucous membranes normocephalic and atraumatic Eyes PERRL and EOMs intact bilaterally Neck no lymphadenopathy, supple and no JVD Resp normal respiratory effort and clear to auscultation bilaterally Auscultation: Negative for rales, rhonchi or wheezes Cardio regular rhythm, S1 normal heart sound, S2 normal heart sound and no murmurs Rate: tachycardic GI non-tender, non-distended and no masses Auscultation: normoactive bowel sounds Palpation: soft; Negative for tender, guarding, rigid or rebound tenderness present Back/Spine no CVA tenderness Extremity full ROM General Extremety ED: Yes edema General Extremity: edema Neuro moves all extremities Sensorium / Orientation: alert, oriented to person, oriented to place and oriented to time; Negative for orientation impaired, confused, lethargic or stuporous Motor Exam: strength 5/5 throughout Psych mental status grossly normal Appearance: unkempt Skin General Skin Exam: Negative for jaundice Lesions: no lesions Rashes: no rashes MDM MDM MDM Narrative Medical decision making narrative: 60-year-old male with cirrhosis and e sophageal varices with upper GI bleed. He will be treated with Zofran for nausea and Protonix IV. Labs are being obtained he will be typed and crossed. Repeat exam patient is doing well at 2:45 in the morning. He had one episode where he said he brought up a small amount of blood. Since he has been in the emergency department. Currently stable. His blood pressure stable. His labs are his baseline. I suspect will be admit him for observation. I have the his tread tuber machine operator on page. Lab Data Attestation: I reviewed the patient's lab results. Lab results narrative: CBC shows a white count of 3.8. Hemoglobin of 10.6. Platelets are only 52,000. Is a history of pancytopenia. Electrolytes unremarkable gap of 8 normal creatinine is 0.9 and normal BUN of 5. Glucose 118. Liver enzymes unremarkable. Lipase is elevated 531. PT/INR PTT are 17, 1 and 39. Labs: Laboratory Results - last 24 hr 12/03/20 12/03/20 12/03/20 00:44 00:44 00:44 WBC 3.8 L RBC 3.36 L Hgb 10.6 L Hct 32.4 L MCV 96.4 H MCH 31.5 MCHC 32.7 RDW Std Deviation 51.7 H RDW Coeff of Delilah 14.8 H Plt Count 52 L MPV 10.6 Immature Gran % (Auto) 0.300 Neut % (Auto) 28.3 L Lymph % (Auto) 51.3 H [place] % (Auto) 19.0 H Eos % (Auto) 0.8 Baso % (Auto) 0.3 Absolute Neuts (auto) 1.1 L Absolute Lymphs (auto) 1.97 Nucleated RBC % 0 PT INR APTT Sodium 139 Potassium 4.1 Chloride 107 Carbon Dioxide 24.0 Anion Gap 8 BUN 5 L Creatinine 0.93 Estim Creat Clear Calc 89.96 Est GFR (MDRD) Af Amer 107 Est GFR (MDRD) Non-Af 88 BUN/Creatinine Ratio 5.4 L Glucose 118 H Calcium 7.8 L Total Bilirubin 0.60 AST 36 ALT 24 Alkaline Phosphatase 93 Total Protein 6.5 Albumin 2.6 L Globulin 3.9 Albumin/Globulin Ratio 0.7 L Lipase 531 H Blood Type A NEGATIVE Antibody Screen NEGATIVE Crossmatch See Detail 12/03/20 01:10 WBC RBC Hgb Hct MCV MCH MCHC RDW Std Deviation RDW Coeff of Delilah Plt Count MPV Immature Gran % (Auto) Neut % (Auto) Lymph % (Auto) [place] % (Auto) Eos % (Auto) Baso % (Auto) Absolute Neuts (auto) Absolute Lymphs (auto) Nucleated RBC % PT 17.1 H INR 1.5 APTT 39.6 H Sodium Potassium Chloride Carbon Dioxide Anion Gap BUN Creatinine Estim Creat Clear Calc Est GFR (MDRD) Af Amer Est GFR (MDRD) Non-Af BUN/Creatinine Ratio Glucose Calcium Total Bilirubin AST ALT Alkaline Phosphatase Total Protein Albumin Globulin Albumin/Globulin Ratio Lipase Blood Type Antibody Screen Crossmatch Discharge Plan Triage Chief Complaint: Nausea/Vomiting ED Provider: Jarrod Ellsworth Dx/Rx/DC Orders Clinical Impression: Esophageal varices in alcoholic cirrhosis, Acute upper gastrointestinal bleeding, Chronic anemia, Thrombocytopenia, History of cirrhosis of liver Prescriptions: No Action ferrous sulfate [iron] 325 MG tablet 325 mg PO DAILY RF: 0 potassium chloride 10 MEQ tablet extended release 10 meq PO BID RF: 0 magnesium oxide 400 MG tablet 400 mg PO DAILYCM RF: 0 ondansetron 4 MG tablet 4 mg PO Q8H PRN PRN (Reason: Nausea) Qty: 10 RF: 0 benzonatate 100 mg Capsule 100 mg PO BID PRN (Reason: Cough) RF: 0 metoclopramide HCl 10 MG tablet 10 mg PO 4X/DAY PRN (Reason: Nausea) RF: 0 folic acid 1 mg Tablet 1 mg PO DAILY RF: 0 Folbee 2.5-25-1 mg Tablet 1 tab PO DAILY RF: 0 midodrine 5 mg Tablet 5 mg PO TIDCM Qty: 90 RF: 2 thiamine HCl (vitamin B1) [Vitamin B-1] 100 mg Tablet 100 mg PO DAILY Qty: 30 RF: 0 omeprazole 40 mg Capsule,Delayed Release(Dr/Ec) 40 mg PO BID Qty: 60 RF: 2 nadolol 20 MG tablet 20 mg PO DAILY Qty: 30 RF: 2 furosemide 20 mg Tablet 20 mg PO DAILY Qty: 30 RF: 2 spironolactone 50 mg tablet 50 mg PO DAILY Qty: 60 RF: 0 lactulose 10 GM/15 ML solution 30 ml PO TID Qty: 473 RF: 0 tramadol 50 mg tablet 50 mg PO Q6H PRN (Reason: pain) Qty: 20 RF: 0 Primary Care Provider: Alice Cuellar Referrals: Alice Cuellar DO [Primary Care Provider] - Disposition Disposition: Acute Care Hospital [facility]
[2020-12-03 01:10] LABS: Absolute Lymphocyte Count 1.97 X10^3/uL (0.83-4.51); Absolute Neutrophil Count 1.1 X10^3/uL (2.0-7.7); Basophil# 0.01 X10^3/uL; Basophil% 0.3 % (0-1); Eosinophil# 0.03 X10^3/uL; Eosinophils% 0.8 % (0-5); Hematocrit 32.4 % (40-54); Hemoglobin 10.6 g/dL (13.0-16.5); Lymphocyte # 1.97 X10^3/ul (0.83-4.51); Lymphocyte % 51.3 % (19-41); Mean Corp Hgb Conc 32.7 g/dL (32-36); Mean Corpuscular Hgb 31.5 pg (27.0-32.0); Mean Corpuscular Volume 96.4 fL (80-94); Mean Platelet Vol. 10.6 fl (6.2-12.0); Monocyte# 0.73 X10^3/uL; NRBC Flagged by Analyzer 0 % (0-5); Neutrophil # 1.09 X10^3/uL (2.7-7.7); Neutrophil % 28.3 % (47-70); POSITIVE COUNT YES; Platelet Count 52 K/mm3 (150-450); RBC Distribution Width CV 14.8 % (11.6-14.6); RBC Distribution Width SD 51.7 fl (35.1-43.9); Red Blood Count 3.36 M/mm3 (4.6-6.2); White Blood Count 3.8 K/mm3 (4.4-11.0)
[2020-12-03] MEDS: Ondansetron 4 MG/2 ML Vial IV (01:11)
[2020-12-03 01:46] LABS: International Normalized Ratio 1.5; Partial Thromboplast Time 39.6 Seconds (24.1-36.2); Prothrombin Time (Protime)PT. 17.1 SECONDS (11.7-14.9)
[2020-12-03 01:55] LABS: ALB/GLOB Ratio 0.7 RATIO (0.9-2.4); AST(SGOT) 36 U/L (15-37); Alanine Aminotransfer ALT/SGPT 24 U/L (16-61); Albumin, Serum 2.6 g/dL (3.2-5.0); Alkaline Phosphatase 93 U/L (45-117); Anion Gap 8 (5-15); BUN 5 mg/dL (7-18); BUN/Creat Ratio 5.4 RATIO (10-20); Calcium,Total 7.8 mg/dL (8.5-10.1); Chloride 107 mmol/L (98-107); Creatinine, Serum 0.93 mg/dL (0.70-1.30); EST Glomerular Filtration Rate 88 mL/min (>60); Est Glom Filt Rate - Afr Amer 107 mL/min (>60); Estimated Creatinine Clearance 89.96 ml/min; Globulin 3.9 g/dL (2.2-4.2); Glucose 118 mg/dL (74-106); Lipase 531 U/L (73-393); Potassium 4.1 mmol/L (3.5-5.1); Protein, Total 6.5 g/dL (6.4-8.2); Sodium Level 139 mmol/L (136-145)
--- NOTE | 2020-12-03 03:59 | PCM.HP.STD ---
HPI - General General Date of Admission: 12/03/20 Date of Service: 12/03/20 Chief Complaint: Hematemesis HPI Narrative JB ALARCON, is a 60 M with a significant history of cirrhosis; esophageal varices; abdominal aortic aneurysm with repair who presents with multiple episodes of hematemesis that started about some hours presentation. Patient does not state exactly when it started. He reported that his emesis was small compared to his most recent admission for hemoptysis where he had huge amount of blood. He had about 3-4 hematemesis before coming to emergency department and at the emergency department he also had some episodes where he flushed the blood in the toilet bowl. He reports a chronic abdominal pain that has worsened. He reports losing about 30 pounds since being started on diuretics about a month ago. Patient follows up with Dr. Sheldon, GI specialist who recommended that if patient is to have hematemesis again should come to emergency department. Accordingly patient came to emergency department. Emergency department doctor discussed the case with GI specialist on presentation. [facility] Medical History Alcoholic cirrhosis Aortic aneurysm without rupture Benign essential hypertension Chronic pain Cirrhosis Diastolic dysfunction Esophageal varices in alcoholic cirrhosis History of esophageal varices Liver cirrhosis, alcoholic Near syncope Peripheral arterial disease Smoker Thrombocytopenia Home Medications ferrous sulfate [iron] 325 mg PO DAILY 03/20/18 [History Last Taken 03/11/20] magnesium oxide 400 mg PO DAILYCM 03/12/20 [History Last Taken 03/11/20] potassium chloride 10 meq PO BID 03/12/20 [History Last Taken 03/11/20] benzonatate 100 mg PO BID PRN 09/21/20 [History Last Taken Unknown] folic acid 1 mg PO DAILY 11/15/20 [History Last Taken Unknown] furosemide 20 mg PO DAILY #30 tab 11/15/20 [Rx Last Taken Unknown] lactulose 30 ml PO TID #473 ml 11/15/20 [Rx Last Taken Unknown] nadolol 20 mg PO DAILY #30 tab 11/15/20 [Rx Last Taken Unknown] omeprazole 40 mg PO BID #60 cap 11/15/20 [Rx Last Taken Unknown] spironolactone 50 mg PO DAILY #60 tab 11/15/20 [Rx Last Taken Unknown] thiamine HCl (vitamin B1) [Vitamin B-1] 100 mg PO DAILY #30 tab 11/15/20 [Rx Last Taken Unknown] tramadol 50 mg PO Q6H PRN #20 tab 11/16/20 [Rx Last Taken Unknown] benzonatate mg PO 12/03/20 [History Last Taken Unknown] Allergy/AdvReac Type Severity Reaction Status Date / Time No Known Allergies Allergy Verified 12/03/20 00:40 Family History Mother Cancer Father Lupus Surgical History History of aortic aneurysm repair Social History household members: none Smoking Status: Current some day smoker tobacco type: cigarettes alcohol intake: current alcohol intake frequency: a few times a week substance use type: does not use ROS ROS Narrative Constitutional: Reports intentional weight loss. Denies fever, chills, and anorexia Eyes: Denies blurry vision, change in eye color, change in vision, discharge from eye(s), double vision, erythema, eye pain, loss of vision or other HEENT: Denies abnormal hearing, dysphagia, ear pain, epistaxis, headache(s), hearing loss, nasal congestion, nasal discharge, post nasal drip, sinus pressure, sore throat or other Cardiovascular: Denies chest pain or palpitations. Denies dyspnea on exertion, orthopnea and paroxysmal nocturnal dyspnea Respiratory/Chest: Denies cough, excessive phlegm production, shortness of breath with exertion and wheezing Gastrointestinal: Reports abdominal pain, nausea vomiting and hematemesis. Denies, constipation, diarrhea, dyspepsia, , hematochezia, loose stools, melena, or other Genitourinary: Denies burning urination, difficulty urinating, dysuria, hematuria, nocturia, urinary frequency, urinary hesitancy, urinary incontinence, urinary urgency or other Musculoskeletal: Denies arthralgias, back pain, joint pain, joint stiffness, joint swelling, myalgias, neck pain or other Neurologic: Denies abnormal gait, abnormal speech, confusion, disequilibrium, dizziness, focal weakness, headache(s), numbness, paresthesias, seizure-like activity, seizures, syncope, tingling, tremor(s) or other Psychiatric: Denies anxiety, depression, homicidal ideation, suicidal ideation or other Endocrinology: Denies change in body appearance, cold intolerance, excessive sweating, heat intolerance, polydipsia, polyuria or other Hematologic/Lymphatic: Denies anemia, easy bleeding, easy bruising, lymphadenopathy or other Integumentary: Denies rashes Allergic/Immunologic: Denies rhinitis, hives, eczema, asthma or other Vital Signs Vital Signs Vital Signs: 12/03/20 00:41 12/03/20 01:10 12/03/20 01:17 Temperature 98.2 F Temperature Source Temporal Pulse Rate 107 H Respiratory Rate 12 Blood Pressure 143/79 H Blood Pressure Mean 100 Pulse Ox 97 86 95 Oxygen Delivery Method Room Air Room Air Nasal Cannula Oxygen Flow Rate (L/min) 2 Weight Weight: 84.7 kg Body Mass Index (BMI) 26.0 Physical Exam Narrative Physical exam: General: Well-nourished, well-developed. Head: Normocephalic, atraumatic, no tenderness Eyes: PERRLA, EOMI ENT, no trauma, moist mucous membranes, no rhinorrhea Neck: Nontender, full range of motion, no spinal tenderness, deformities, step-off CVS: Regular rate and rhythm. S1-S2 present. No murmur, gallop or rub. Respiratory : clear to auscultation bilaterally, chest wall nontender, no wheezing Abdomen: Spider angiomata on abdomen. Soft, nontender, nondistended, normal bowel sounds, no masses : Deferred Back: Nontender, no CVA tenderness, no midline spinal tenderness, deformities, step-offs Extremities: Nontender full range of motion, no trauma Skin: Normal color, no trauma, abrasions Neuro: Alert, oriented, cranial nerves II through XII grossly intact. Psychiatry: Normal mood. Normal affect. Not depressed. Not anxious. Results Lab / Micro Data Result Diagrams: 12/03/20 00:44 12/03/20 00:44 Labs: Laboratory Results - last 24 hr 12/03/20 00:44: WBC 3.8 L, RBC 3.36 L, Hgb 10.6 L, Hct 32.4 L, MCV 96.4 H, MCH 31.5, MCHC 32.7, RDW Std Deviation 51.7 H, RDW Coeff of Delilah 14.8 H, Plt Count 52 L, MPV 10.6, Immature Gran % (Auto) 0.300, Neut % (Auto) 28.3 L, Lymph % (Auto) 51.3 H, [place] % (Auto) 19.0 H, Eos % (Auto) 0.8, Baso % (Auto) 0.3, Absolute Neuts (auto) 1.1 L, Absolute Lymphs (auto) 1.97, Nucleated RBC % 0 12/03/20 00:44: Sodium 139, Potassium 4.1, Chloride 107, Carbon Dioxide 24.0, Anion Gap 8, BUN 5 L, Creatinine 0.93, Estim Creat Clear Calc 89.96, Est GFR (MDRD) Af Amer 107, Est GFR (MDRD) Non-Af 88, BUN/Creatinine Ratio 5.4 L, Glucose 118 H, Calcium 7.8 L, Total Bilirubin 0.60, AST 36, ALT 24, Alkaline Phosphatase 93, Total Protein 6.5, Albumin 2.6 L, Globulin 3.9, Albumin/Globulin Ratio 0.7 L, Lipase 531 H 12/03/20 00:44: Blood Type A NEGATIVE, Antibody Screen NEGATIVE, Crossmatch See Detail 12/03/20 01:10: PT 17.1 H, INR 1.5, APTT 39.6 H Assessment & Plan Assessment/Plan (1) Acute upper gastrointestinal bleeding: (2) Chronic anemia: (3) Thrombocytopenia: (4) History of cirrhosis of liver: PLAN: Acute upper gastrointestinal bleeding from esophageal varices Review of labs showed INR of 1.5 Trend H&H. Will keep patient strict n.p.o. Protonix IV ordered. Emergency department doctor discussed the case with GI specialist and report that because of hematemesis was small no octreotide is indicated at this time. Per GI recommendation patient was given ceftriaxone at emergency department which will be continued. GI consult. History of alcoholism Reportedly he has cut down his drinking significantly and now he drinks about 5-6 beers beers per week. On some days reportedly he drinks none. WA protocol ordered. Folic acid and thiamine on hold secondary to n.p.o. status. Resume when patient is no longer n.p.o. Pancytopenia Hemoglobin of 10.6; trend, Platelet count of 52; White count of 3.8 Trend H&H and CBC. Patient was a type and screen at the emergency department. On folic acid and iron supplementation. Resume when patient is no longer n.p.o. Pseudohypocalcemia Calcium 7.8. Albumin of 2.6. Corrected calcium is 8.9. Trend BMP Tobacco abuse Counseled History of cirrhosis On spironolactone; nadolol and Lasix. Resume when patient is no longer n.p.o. DVT prophylaxis: SCD ordered. Charges/Coding Visit Charges OBSV E&M: 22761 Initial observation care L3
[2020-12-03] MEDS: Ceftriaxone 1 GM/50 ML BAG IV ×2 (04:08→22:05)
--- NOTE | 2020-12-03 04:48 | PCS.PANDOC ---
PANDEMIC DOCUMENTATION INITIATED: Date: 10/15/2020 Time: 190
[2020-12-03 07:49] LABS: Absolute Neutrophil Count 0.5 X10^3/uL (2.0-7.7); Basophil# 0.01 X10^3/uL; Basophil% 0.5 % (0-1); Eosinophil# 0.01 X10^3/uL; Eosinophils% 0.5 % (0-5); Hematocrit 29.8 % (40-54); Hemoglobin 9.7 g/dL (13.0-16.5); Lymphocyte % 57.4 % (19-41); Mean Corp Hgb Conc 32.6 g/dL (32-36); Mean Corpuscular Hgb 31.7 pg (27.0-32.0); Mean Corpuscular Volume 97.4 fL (80-94); Mean Platelet Vol. 10.6 fl (6.2-12.0); Monocyte# 0.34 X10^3/uL; Monocyte% 16.3 % (0-10); NRBC Flagged by Analyzer 0 % (0-5); Neutrophil # 0.53 X10^3/uL (2.7-7.7); Neutrophil % 25.3 % (47-70); POSITIVE COUNT YES; POSITIVE DIFFERENTIAL YES; RBC Distribution Width CV 14.9 % (11.6-14.6); RBC Distribution Width SD 53.2 fl (35.1-43.9); Red Blood Count 3.06 M/mm3 (4.6-6.2); White Blood Count 2.1 K/mm3 (4.4-11.0)
[2020-12-03 07:55] LABS: Differential Indicated SCAN CRITERIA MET; Platelet Count 35 K/mm3 (150-450)
--- NOTE | 2020-12-03 08:06 | EX.PCM.CON.G ---
HPI Consult Data Date of Consult: 12/03/20 HPI Narrative HPI Narrative: JB ALARCON, is a 60 M who presents to the ED after having several episodes of coughing and then having 2 episodes of hematemesis. He has a history of known alcoholic cirrhosis complicated by ascites status post large-volume and diagnostic paracentesis without SBP. His cirrhosis is also complicated by esophageal and gastric varices. Patient is supposed to be getting follow-up for possible TIPS procedure. He recently had admission to the hospital where he had an episode of upper GI bleeding requiring emergent endoscopy. He underwent banding of esophageal varices that had bleeding stigmata but no active bleeding. He still smokes and says that he has not drank in a month. However when his admission his lipase was elevated to 531. He also has a history of abdominal aortic aneurysm, CAD, peripheral artery disease, thrombocytopenia associated with cirrhosis and heart failure. His hemoglobin on admission was 10.6 and currently it is 9.7. He has not had any more episodes of hematemesis since coming in the hospital. He did get 80 mg of Protonix in the ED. He did not get octreotide. His blood pressure has been normal. [facility] Medical History Alcoholic cirrhosis Aortic aneurysm without rupture Benign essential hypertension Chronic pain Cirrhosis Diastolic dysfunction Esophageal varices in alcoholic cirrhosis History of esophageal varices Liver cirrhosis, alcoholic Near syncope Peripheral arterial disease Smoker Thrombocytopenia Home Medications ferrous sulfate [iron] 325 mg PO DAILY 03/20/18 [History Last Taken 03/11/20] magnesium oxide 400 mg PO DAILYCM 03/12/20 [History Last Taken 03/11/20] potassium chloride 10 meq PO BID 03/12/20 [History Last Taken 03/11/20] benzonatate 100 mg PO BID PRN 09/21/20 [History Last Taken Unknown] folic acid 1 mg PO DAILY 11/15/20 [History Last Taken Unknown] furosemide 20 mg PO DAILY #30 tab 11/15/20 [Rx Last Taken Unknown] lactulose 30 ml PO TID #473 ml 11/15/20 [Rx Last Taken Unknown] nadolol 20 mg PO DAILY #30 tab 11/15/20 [Rx Last Taken Unknown] omeprazole 40 mg PO BID #60 cap 11/15/20 [Rx Last Taken Unknown] spironolactone 50 mg PO DAILY #60 tab 11/15/20 [Rx Last Taken Unknown] thiamine HCl (vitamin B1) [Vitamin B-1] 100 mg PO DAILY #30 tab 11/15/20 [Rx Last Taken Unknown] tramadol 50 mg PO Q6H PRN #20 tab 11/16/20 [Rx Last Taken Unknown] benzonatate mg PO 12/03/20 [History Last Taken Unknown] Allergy/AdvReac Type Severity Reaction Status Date / Time No Known Allergies Allergy Verified 12/03/20 00:40 Family History Mother Cancer Father Lupus Surgical History History of aortic aneurysm repair Social History household members: none Smoking Status: Current some day smoker tobacco type: cigarettes alcohol intake: current alcohol intake frequency: a few times a week substance use type: does not use ROS Review of Systems ROS Unobtainable: other Constitutional Constitutional: Denies fatigue, fever(s), poor appetite, weight gain or weight loss ENT HEENT: Denies mouth lesions Cardiovascular Cardiovascular: Denies abdominal bloating, abdominal edema or abdominal pain Respiratory/Chest Respiratory/Chest: Denies change in mental status, change in phlegm color, chest congestion or chest tightness Gastrointestinal Gastrointestinal: Reports coffee ground emesis and nausea; Denies belching, bloating, change in bowel habits, change in stool character, chewing difficulty, constipation, cramping, diarrhea, dyspepsia, dysphagia, early satiety, excessive flatus, fecal incontinence, heartburn, hematemesis, hematochezia, hemorrhoids, loose stools, melena, odynophagia, rectal bleeding, tenesmus, vomiting or weight changes Genitourinary Genitourinary: Denies abdominal discomfort, burning urination or itching Musculoskeletal Musculoskeletal: Reports as per HPI; Denies muscle weakness or myalgias Integumentary Integumentary: Denies jaundice Neurologic Neurologic: Denies lack of coordination or weakness Psychiatric Psychiatric: Denies confusion, depression, memory loss, mood swings, paranoia or suicidal ideation Endocrine Endocrinology: Denies systems reviewed and no addt'l complaints, except as documented Hematologic/Lymphatic Hematologic/Lymphatic: Denies anemia, easy bleeding, easy bruising or lymphadenopathy Allergic/Immunologic Allergic/Immunologic: Denies systems reviewed and no addt'l complaints, except as documented Physical Exam Const alert General Appearance: cooperative Orientation / Consciousness: oriented to person HEENT hearing grossly normal bilaterally Head and Scalp: normal to inspection Face and Sinus: face symmetric Nose: external nose normal Mouth: oral and palatal mucosa normal Eyes conjunctivae normal General Eye: normal appearance of both eyes Neck full ROM General: normal visual inspection Lymph Lymphatic: no lymphadenopathy noted Chest inspection of chest normal and palpation of chest normal Chest: symmetrical chest wall rise Resp normal respiratory effort Effort and Inspection: able to speak in complete sentences Cardio regular rate GI non-distended GI Narrative: Small fluid wave Inspection: caput medusae present Percussion: normal to percussion Rectal Exam: deferred Neuro Speech: speech normal Gait (Neuro): normal gait Lab / Micro Data Result Diagrams: 12/03/20 07:30 12/03/20 00:44 Labs: Laboratory Results - last 24 hr 12/03/20 00:44: WBC 3.8 L, RBC 3.36 L, Hgb 10.6 L, Hct 32.4 L, MCV 96.4 H, MCH 31.5, MCHC 32.7, RDW Std Deviation 51.7 H, RDW Coeff of Delilah 14.8 H, Plt Count 52 L, MPV 10.6, Immature Gran % (Auto) 0.300, Neut % (Auto) 28.3 L, Lymph % (Auto) 51.3 H, [place] % (Auto) 19.0 H, Eos % (Auto) 0.8, Baso % (Auto) 0.3, Absolute Neuts (auto) 1.1 L, Absolute Lymphs (auto) 1.97, Nucleated RBC % 0 12/03/20 00:44: Sodium 139, Potassium 4.1, Chloride 107, Carbon Dioxide 24.0, Anion Gap 8, BUN 5 L, Creatinine 0.93, Estim Creat Clear Calc 89.96, Est GFR (MDRD) Af Amer 107, Est GFR (MDRD) Non-Af 88, BUN/Creatinine Ratio 5.4 L, Glucose 118 H, Calcium 7.8 L, Total Bilirubin 0.60, AST 36, ALT 24, Alkaline Phosphatase 93, Total Protein 6.5, Albumin 2.6 L, Globulin 3.9, Albumin/Globulin Ratio 0.7 L, Lipase 531 H 12/03/20 00:44: Blood Type A NEGATIVE, Antibody Screen NEGATIVE, Crossmatch See Detail 12/03/20 01:10: PT 17.1 H, INR 1.5, APTT 39.6 H 12/03/20 07:30: WBC 2.1 L, RBC 3.06 L, Hgb 9.7 L, Hct 29.8 L, MCV 97.4 H, MCH 31.7, MCHC 32.6, RDW Std Deviation 53.2 H, RDW Coeff of Delilah 14.9 H, Plt Count 35 L*, MPV 10.6, Immature Gran % (Auto) 0.000, Neut % (Auto) 25.3 L, Lymph % (Auto) 57.4 H, [place] % (Auto) 16.3 H, Eos % (Auto) 0.5, Baso % (Auto) 0.5, Absolute Neuts (auto) 0.5 L, Absolute Lymphs (auto) 1.20, Nucleated RBC % 0 Assessment & Plan Assessment/Plan (1) Acute upper gastrointestinal bleeding: PLAN: Differential diagnosis for his upper GI bleed would include Danika-Jones tear, gastritis and possibly esophageal variceal bleed. This is less likely since he recently underwent banding procedure. However he had grade 2 esophageal varices on his last upper endoscopy in the setting of thrombocytopenia and possible recent alcohol ingestion that does increase her risk of him rebleeding or having bleeding at the ulcer site where the variceal banding was performed. Patient will need to be on a PPI drip in anticipation for endoscopy later today. (2) Thrombocytopenia: PLAN: Associated with cirrhosis (3) History of cirrhosis of liver: PLAN: History of cirrhosis secondary to upper GI bleed (4) Pancytopenia: PLAN: Pancytopenia associated with cirrhosis Charges/Coding Visit Charges Inpatient E&M: 32431 Init Hosp L3
[2020-12-03 08:26] LABS: Hypochromasia 2+; Platelet Estimate MKD DEC (ADEQ)
[2020-12-03] MEDS: 0.9% Saline Lock 10 ML Syringe IV ×3 (10:03→21:57)
[2020-12-03 12:17] LABS: Hematocrit 29.3 % (40-54); Hemoglobin 9.9 g/dL (13.0-16.5)
--- NOTE | 2020-12-03 13:02 | PN.HOSP_ITS ---
Documented by User: Kashif GIBSON 12/03/20 13:04 Hospitalist Note Patient is a 60-year-old male who was admitted to the hospital on 12/03/2020 for acute upper GI bleeding from esophageal varices. Patient was initiated on IV Protonix as well as ceftriaxone, GI consult was obtained. General surgery would like to continue with PPI drip and is scheduled an endoscopy for later on today. Platelets were transfused as well for thrombocytopenia. Patient seen by Kashif Parker PA-C, under the supervision of Dr. Mccloud. Documented by User: Dr. Kulwant Mccloud DO 12/03/20 15:29 Hospitalist Note Patient seen and examined independently. Data and vitals reviewed. I agree with the above note by the physician professional nursing assistant. Patient feels okay at this time. No further bleeding that he is aware of. No acute stress and afebrile. Heart rate regular rate and rhythm plus S1-S2 with a murmurs Rubs. Lungs Are Clear to Auscultation Bladder. Abdomen Is Slightly Distended but Nontender. Normal Bowel Sounds. Assessment and plan 1. GI bleed: Concern for variceal bleeding. GI consultation. Continue with PPI drip. Possible endoscopy today. 2. Thrombocytopenia: Secondary to cirrhosis and splenomegaly. Will transfuse as he is having bleeding. The goal of 50,000 3. Cirrhosis, alcoholic: Complicates care. Not a candidate for liver transplant given his ongoing alcohol consumption. Procedures Hospitalists Procedures: Other Procedure - See Report (Nonbillable rounding is patient has been after midnight.)
[2020-12-03] MEDS: Lactated Ringers 1,000 ML 100 ML IV (14:57)
--- NOTE | 2020-12-03 16:11 | CASEMGMT ---
VAL NEGRON Readmission Review: Pt with 19 ED visits in 2020 primarily for c/o abd pain and n/v. Pt has had two observation stays in 2020 for gastitis/n/v. Index admission: 11/15 - 11/16/20: acute GI bleed Current admission: GI bleed Pt with hx of alcoholic cirrhosis with chronic thrombocytopenia and esophageal varices and alcoholism. Pt lives w/his in a 3rd story apartment w/elevator access, has been independent with ADLs, and has DME including cane, walker, grab bars, and shower chair. Pt has been to [facility] twice in the past. Pt has a PCP Dr. Cuellar and did attend his follow-up appointment with Dr. Sheldon on 11/27/20. Dr. Sheldon has noted that pt is not a candidate for liver transplant evaluation due to ongoing ETOH intake. Pt has returned with recurrent emesis of blood. Dr. Sheldon on c/s with EGD pending. Will Continue to monitor and assist with discharge planning needs as they are identified. Narda More RN CM
--- NOTE | 2020-12-03 17:59 | OP.CCLET_ITS ---
10/31/2021 Alice Cuellar [address] [place] [address] Re : Upper GI endoscopy procedure for Keyon Yund Dear Dr. Cuellar This procedure was performed on Thursday, December 03, 2020. My impressions and recommendations are as follows: Impressions : - Grade II esophageal varices. - Type 1 isolated gastric varices (IGV1, varices located in the fundus), without bleeding. - Normal second portion of the duodenum. - No specimens collected. Recommendations : - Discharge patient to home. - Resume regular diet today. - Continue present medications. - Return to my office in 2 weeks. My findings are described in the full procedure note, which is enclosed. If I can be of further assistance, please feel free to contact me at . Sincerely, Hugo Sheldon, 12/03/2020 5:58:31 PM This report has been signed electronically.
--- NOTE | 2020-12-03 17:59 | OP.EGD_ITS ---
Patient Name: Keyon Dillon Procedure Date: 12/03/2020 5:32 PM Date of : 1960 Age: 60 Procedure: Upper GI endoscopy Indications: Coffee-ground emesis Providers: Hugo Sheldon DO Medicines: Monitored Anesthesia Care Patient Profile: This is a 60 year old male. Refer to note in patient chart for documentation of history and physical. Patient has symptoms. The symptoms first began November 30,. He is status post EGD within the past month. Complications: No immediate complications. Procedure: Pre-Anesthesia Assessment: - Prior to the procedure, a History and Physical was performed, and patient medications and allergies were reviewed. The patient is competent. The risks and benefits of the procedure and the sedation options and risks were discussed with the patient. All questions were answered and informed consent was obtained. Patient identification and proposed procedure were verified. Mental Status Examination: alert and oriented. Airway Examination: normal oropharyngeal airway and neck mobility. Respiratory Examination: clear to auscultation. CV Examination: normal. Prophylactic Antibiotics: The patient does not require prophylactic antibiotics. Prior Anticoagulants: The patient has taken no previous anticoagulant or antiplatelet agents. ASA Grade Assessment: II - A patient with mild systemic disease. After reviewing the risks and benefits, the patient was deemed in satisfactory condition to undergo the procedure. The anesthesia plan was to use moderate sedation / analgesia (conscious sedation). Immediately prior to administration of medications, the patient was re-assessed for adequacy to receive sedatives. The heart rate, respiratory rate, oxygen saturations, blood pressure, adequacy of pulmonary ventilation, and response to care were monitored throughout the procedure. The physical status of the patient was re-assessed after the procedure. After obtaining informed consent, the endoscope was passed under direct vision. Throughout the procedure, the patient's blood pressure, pulse, and oxygen saturations were monitored continuously. The Endoscope was introduced through the mouth, and advanced to the third part of duodenum. The upper GI endoscopy was accomplished without difficulty. The patient tolerated the procedure well. Moderate Sedation: Moderate (conscious) sedation was administered by the endoscopy nurse and supervised by the endoscopist. The patient's oxygen saturation, heart rate, blood pressure and response to care were monitored. Scope In: 5:45:08 PM Scope Out: 5:47:51 PM Total Procedure Duration Time 0 hours 2 minutes 43 seconds Findings: Grade II varices were found in the lower third of the esophagus. Type 1 isolated gastric varices (IGV1, varices located in the fundus) with no bleeding were found in the cardia. The second portion of the duodenum was normal. Impression: - Grade II esophageal varices. - Type 1 isolated gastric varices (IGV1, varices located in the fundus), without bleeding. - Normal second portion of the duodenum. - No specimens collected. Recommendation: - Discharge patient to home. - Resume regular diet today. - Continue present medications. - Return to my office in 2 weeks. Procedure Code(s): --- Professional --- 92621, Esophagogastroduodenoscopy, flexible, transoral; diagnostic, including collection of specimen(s) by brushing or washing, when performed (separate procedure) CPT copyright 2017 [employer]. All rights reserved. The codes documented in this report are preliminary and upon boot and shoe laborer review may be revised to meet current compliance requirements. Hugo Sheldon DO 12/03/2020 5:58:31 PM This report has been signed electronically. Number of Addenda: 1 Note Initiated On: 12/03/2020 5:32 PM Addendum Number: 1 Addendum Date: 10/31/2021 4:16:18 PM MAC was used instead of moderate sedation for this patient. Hugo Sheldon DO 10/31/2021 4:16:26 PM This report has been signed electronically.
[2020-12-03 18:58] LABS: Hematocrit 30.2 % (40-54); Hemoglobin 10.1 g/dL (13.0-16.5)
--- NOTE | 2020-12-03 21:00 | NURSING ---
Verified with Ermelinda ARAIZA that platelets are to be given and RBC that are ordered are to be ready on hold.
[2020-12-03] MEDS: traZODone 100 MG Tablet PO (23:06)
[2020-12-04] MEDS: DiphenhydrAMINE 50 MG/ML Syringe IV (02:04)
[2020-12-04] MEDS: 0.9% Saline Lock 10 ML Syringe IV (02:04)
[2020-12-04 02:12] VITALS: BP 106/61; PULSE 62; RESP 16; TEMP 36.6; O2SAT 98
[2020-12-04] MEDS: predniSONE 20 MG Tablet PO (03:35)
--- NOTE | 2020-12-04 07:06 | NURSING ---
Spoke with blood bank in lab, notified that RBC's are to be on hold.
[2020-12-04 07:10] LABS: Absolute Lymphocyte Count 0.74 X10^3/uL (0.83-4.51); Absolute Neutrophil Count 0.5 X10^3/uL (2.0-7.7); Basophil# 0.01 X10^3/uL; Basophil% 0.6 % (0-1); Eosinophil# 0.02 X10^3/uL; Eosinophils% 1.2 % (0-5); Hematocrit 30.6 % (40-54); Hemoglobin 10.3 g/dL (13.0-16.5); Lymphocyte # 0.74 X10^3/ul (0.83-4.51); Mean Corp Hgb Conc 33.7 g/dL (32-36); Mean Corpuscular Hgb 31.9 pg (27.0-32.0); Mean Corpuscular Volume 94.7 fL (80-94); Mean Platelet Vol. 10.2 fl (6.2-12.0); Monocyte# 0.44 X10^3/uL; Monocyte% 25.6 % (0-10); NRBC Flagged by Analyzer 1.2 % (0-5); Neutrophil # 0.51 X10^3/uL (2.7-7.7); Neutrophil % 29.6 % (47-70); POSITIVE COUNT YES; POSITIVE DIFFERENTIAL YES; Platelet Count 49 K/mm3 (150-450); RBC Distribution Width CV 14.6 % (11.6-14.6); RBC Distribution Width SD 50.4 fl (35.1-43.9); Red Blood Count 3.23 M/mm3 (4.6-6.2); White Blood Count 1.7 K/mm3 (4.4-11.0)
[2020-12-04 07:16] LABS: Differential Indicated SCAN CRITERIA MET
--- NOTE | 2020-12-04 07:20 | PN.GI_ITS ---
Subjective Subjective patient presented to the hospital with an upper GI bleed. He underwent endoscopy yesterday. No issues overnight. Objective Data Objective Data Vital Signs: Vital Signs Temp Pulse Resp BP Pulse Ox 97.9 F 62 16 106/61 98 12/04/20 02:12 12/04/20 02:12 12/04/20 02:12 12/04/20 02:12 12/04/20 02:12 Oxygen Flow Rate (L/min) 2 Oxygen Delivery Method Room Air Weight: 180 lb 15.992 oz Body Mass Index (BMI) 25.2 Intake & Output: Intake and Output for Last 24 Hours 12/02/20 12/03/20 12/04/20 23:59 23:59 23:59 Intake Total 1778.33 / 2078.33 850 / 850 Output Total 0 / 0 Balance 1778.33 / 2077.33 850 / 850 Lab / Micro Data Result Diagrams: 12/04/20 05:50 12/03/20 00:44 Labs: Laboratory Results - last 24 hr 12/03/20 07:30: WBC 2.1 L, RBC 3.06 L, Hgb 9.7 L, Hct 29.8 L, MCV 97.4 H, MCH 31.7, MCHC 32.6, RDW Std Deviation 53.2 H, RDW Coeff of Delilah 14.9 H, Plt Count 35 L*, MPV 10.6, Immature Gran % (Auto) 0.000, Neut % (Auto) 25.3 L, Lymph % (Auto) 57.4 H, Mellette % (Auto) 16.3 H, Eos % (Auto) 0.5, Baso % (Auto) 0.5, Absolute N euts (auto) 0.5 L, Absolute Lymphs (auto) 1.20, Nucleated RBC % 0, Diff Path Review June, Platelet Estimate MKD DEC, Hypochromasia 2+ 12/03/20 12:05: Hgb 9.9 L, Hct 29.3 L 12/03/20 18:45: Hgb 10.1 L, Hct 30.2 L 12/04/20 05:50: WBC 1.7 L, RBC 3.23 L, Hgb 10.3 L, Hct 30.6 L, MCV 94.7 H, MCH 31.9, MCHC 33.7, RDW Std Deviation 50.4 H, RDW Coeff of Delilah 14.6, Plt Count 49 L*, MPV 10.2, Immature Gran % (Auto) 0.000, Neut % (Auto) 29.6 L, Lymph % (Auto) 43.0 H, Mellette % (Auto) 25.6 H, Eos % (Auto) 1.2, Baso % (Auto) 0.6, Absolute Neuts (auto) 0.5 L, Absolute Lymphs (auto) 0.74 L, Nucleated RBC % 1.2 Micro: Microbiology 12/03/20 11:35 Nasal Secretion SARS-CoV-2 Antigen (Rapid) - Final Physical Exam Const alert General Appearance: cooperative Orientation / Consciousness: oriented to person HEENT hearing grossly normal bilaterally Head and Scalp: normal to inspection Face and Sinus: face symmetric Nose: external nose normal Mouth: oral and palatal mucosa normal Eyes conjunctivae normal General Eye: normal appearance of both eyes Neck full ROM General: normal visual inspection Lymph Lymphatic: no lymphadenopathy noted Chest inspection of chest normal and palpation of chest normal Chest: symmetrical chest wall rise Resp normal respiratory effort Effort and Inspection: able to speak in complete sentences Cardio regular rate GI non-distended Percussion: normal to percussion Rectal Exam: deferred Neuro Speech: speech normal Gait (Neuro): normal gait Assessment & Plan Assessment/Plan (1) Acute upper gastrointestinal bleeding: PLAN: There was no sign of bleeding in his upper GI tract. He does have esophageal varices and gastric varices. The previous banding sites did not have any stigmata of bleeding. He does have very large gastric varices. The only treatment for that is TIPS procedure versus transplant. Because his alcohol usage he is not a candidate for either procedure at this time. He is also very high risk for hepatic encephalopathy which is one of the main side effects of the TIPS procedure. For now we will maintain him on nadolol and we will band his many varices as possible in his esophagus as an outpatient. (2) Thrombocytopenia: PLAN: Thrombocytopenia seems to be stable. (3) Cirrhosis: PLAN: Patient should be on lactulose once a day & nadolol twice a day. I encouraged no alcohol. He can follow-up as an outpatient in approximately 2 weeks in the clinic.
[2020-12-04 07:39] LABS: Anion Gap 10 (5-15); BUN 7 mg/dL (7-18); BUN/Creat Ratio 12.3 RATIO (10-20); Calcium,Total 8.2 mg/dL (8.5-10.1); Chloride 109 mmol/L (98-107); Creatinine, Serum 0.57 mg/dL (0.70-1.30); EST Glomerular Filtration Rate 155 mL/min (>60); Est Glom Filt Rate - Afr Amer 187 mL/min (>60); Estimated Creatinine Clearance 146.78 ml/min; Glucose 122 mg/dL (74-106); Potassium 3.6 mmol/L (3.5-5.1); Sodium Level 145 mmol/L (136-145)
[2020-12-04 08:30] VITALS: BP 114/54; PULSE 68; RESP 16; TEMP 36.5; O2SAT 99
--- NOTE | 2020-12-04 11:06 | PCM.DC ---
Discharge Instructions Diet Discharge Diet: No restrictions Activity Discharge Activity: Return to Normal Activity Weight Bearing Status: Weight bearing as tolerated Dressing / Incision Call your doctor if you observe: Fever of 101 or Higher, Numbness or Tingling, Shortness of breath, Dizziness, Chest pain, Increased palpitations (irregular heartbeat) and Calf discomfort Follow Up Care Please Follow Up With: Primary care provider When: Within the next two weeks. Test Results: Test results from this visit will be discussed in further detail at your follow-up appointment, if applicable. Discharge Plan Admission Admit Date/Time: 12/03/20 07:30 Primary Reason for Your Visit: Upper GI bleed Attending Provider: Kulwant Mccloud Primary Care Provider: Alice Cuellar Consulting Providers: Hugo Sheldon Discharge Orders/Prescriptions Prescriptions: New nadolol 20 mg tablet 20 mg PO BID Qty: 60 RF: 0 lactulose 10 gram/15 mL solution 10 g PO DAILY Qty: 473 RF: 0 Continued ferrous sulfate [iron] 325 MG tablet 325 mg PO DAILY RF: 0 potassium chloride 10 MEQ tablet extended release 10 meq PO BID RF: 0 magnesium oxide 400 MG tablet 400 mg PO DAILYCM RF: 0 benzonatate 100 mg Capsule 100 mg PO BID PRN (Reason: Cough) RF: 0 folic acid 1 mg Tablet 1 mg PO DAILY RF: 0 thiamine HCl (vitamin B1) [Vitamin B-1] 100 mg Tablet 100 mg PO DAILY Qty: 30 RF: 0 omeprazole 40 mg Capsule,Delayed Release(Dr/Ec) 40 mg PO BID Qty: 60 RF: 2 furosemide 20 mg Tablet 20 mg PO DAILY Qty: 30 RF: 2 spironolactone 50 mg tablet 50 mg PO DAILY Qty: 60 RF: 0 tramadol 50 mg tablet 50 mg PO Q6H PRN (Reason: pain) Qty: 20 RF: 0 benzonatate 100 mg capsule PO RF: 0 trazodone 100 mg Tablet 100 mg PO QHS PRN (Reason: sleep) RF: 0 Discontinued nadolol 20 MG tablet 20 mg PO DAILY Qty: 30 RF: 2 lactulose 10 GM/15 ML solution 30 ml PO TID Qty: 473 RF: 0 Referrals / Follow Up: Alice Cuellar DO [Primary Care Provider] - Within 2 Weeks Hugo Sheldon DO [STAFF PHYSICIAN] - Within 2 Weeks Disposition Disposition (needs filled in before D/C Order can be placed): Home, Self Care
--- NOTE | 2020-12-04 11:38 | PHA.DC.MC ---
Pharmacy Service has performed discharge medication reconciliation and counseling for this patient. 1. LACTULOSE 10GM PO DAILY 2. NADOLOL 20MG PO BID The patient's discharge medication list was reviewed for discrepancies and discrepancies were resolved. Home Medications ferrous sulfate [iron] 325 mg PO DAILY 03/20/18 magnesium oxide 400 mg PO DAILYCM 03/12/20 potassium chloride 10 meq PO BID 03/12/20 folic acid 1 mg PO DAILY 11/15/20 tramadol 50 mg PO Q6H PRN #20 tab 11/16/20 benzonatate 100 mg PO TID PRN PRN 12/03/20 trazodone 100 mg PO QHS PRN 12/03/20 furosemide 20 mg PO DAILY 12/04/20 lactulose 10 g PO DAILY #473 ml 12/04/20 nadolol 20 mg PO BID #60 tab 12/04/20 omeprazole 40 mg PO BID 12/04/20 spironolactone 50 mg PO DAILY 12/04/20 thiamine HCl (vitamin B1) [Vitamin B-1] 100 mg PO DAILY 12/04/20 The patient was counseled on the following discharge medications and changes in medications for homegoing were reviewed. The Reason for Use, instructions for use, and potential side effects were reviewed for all new medications. The patient's questions regarding all of their medications were answered. The patient was able to verbally demonstrate an understanding of their discharge medications.
[2020-12-04 11:50] LABS: Pathologist Review Reviewed
[2020-12-04 11:51] LABS: Pathologist Review Reviewed
--- NOTE | 2020-12-04 13:49 | DS.PCM_ITS ---
Documented by User: Kashif GIBSON 12/04/20 13:58 Providers Date of Admission: 12/03/20 Primary Care Physician: Dr. Alice Cuellar, DO Consultations 12/03/20 04:59 Consult: General Surgery Routine Consulting Provider: Hugo Sheldon Reason for Consult: GI BLEED EMERGENT Consult: No MD Notified: Yes Date Notified: 12/03/20 Time Notified: 06:46 Method of Notification: Text Reason For Visit: ACUTE GI BLEED Diagnosis Discharge Diagnosis (1) Acute upper gastrointestinal bleeding: Status: Acute Code(s): K92.2 - Gastrointestinal hemorrhage, unspecified (2) Thrombocytopenia: Status: Acute Code(s): D69.6 - Thrombocytopenia, unspecified (3) Cirrhosis: Status: Acute Code(s): K74.60 - Unspecified cirrhosis of liver Medications at Discharge Home Medications ferrous sulfate [iron] 325 mg PO DAILY 03/20/18 magnesium oxide 400 mg PO DAILYCM 03/12/20 potassium chloride 10 meq PO BID 03/12/20 folic acid 1 mg PO DAILY 11/15/20 tramadol 50 mg PO Q6H PRN #20 tab 11/16/20 benzonatate 100 mg PO TID PRN PRN 12/03/20 trazodone 100 mg PO QHS PRN 12/03/20 furosemide 20 mg PO DAILY 12/04/20 lactulose 10 g PO DAILY #473 ml 12/04/20 nadolol 20 mg PO BID #60 tab 12/04/20 omeprazole 40 mg PO BID 12/04/20 spironolactone 50 mg PO DAILY 12/04/20 thiamine HCl (vitamin B1) [Vitamin B-1] 100 mg PO DAILY 12/04/20 Hospital Course Summary of Care Provided Minutes Spent on Discharge: 35 Hospital Course: Disposition: Patient to be discharged home. 1) GI bleed Endoscopy completed on 12/03 did not demonstrate any evidence of upper GI bleed, however esophageal varices and gastric varices were observed. GI course going forward is to continue with nadolol and lactulose and proceed with outpatient banding of his varices. Due to his alcohol usage and cirrhosis, patient is not a candidate for TIPS procedure. Will follow with Dr. Sheldon within the next 2 weeks, will follow up with primary care provider within the next 2 weeks. 2) thrombocytopenia Patient was transfused platelets on 12/03. Platelets were 35,000 on admission, 49,000 this morning. Likely secondary to cirrhosis and splenomegaly. Patient seen by Kashif Parker PA-C, under the supervision of Dr. Mccloud. Physical Exam Narrative Patient is a 60-year-old male resting in bed, alert and orient x3. Patient does report some difficulty sleeping overnight, but is otherwise without complaints. Denies development of any new symptoms overnight. Does not appear to be in acute distress. Const alert, oriented x3 and no apparent distress HEENT normocephalic, head/scalp atraumatic and hearing grossly normal bilaterally Eyes PERRL, EOMs intact bilaterally and conjunctivae normal Neck no lymphadenopathy, supple and no JVD Resp normal respiratory effort, no retractions, no use of accessory muscles and clear to auscultation bilaterally Cardio regular rate, regular rhythm, no murmurs and no JVD GI normal to inspection, nondistended, normoactive bowel sounds, soft to palpation and non-tender Extremity normal to inspection, full ROM and no clubbing, cyanosis or edema Skin no rashes or lesions noted, no wounds and skin turgor normal Neuro CN's II-XII intact bilaterally Psych affect normal Weight / BMI Weight Weight: 180 lb 15.992 oz Body Mass Index (BMI) 25.2 ABG / Lab / Microbiology Data Result Diagrams: 12/04/20 05:50 12/04/20 05:50 Laboratory: Laboratory Results - last 24 hr 12/03/20 07:30: Diff Path Review Reviewed 12/03/20 18:45: Hgb 10.1 L, Hct 30.2 L 12/04/20 05:50: WBC 1.7 L, RBC 3.23 L, Hgb 10.3 L, Hct 30.6 L, MCV 94.7 H, MCH 31.9, MCHC 33.7, RDW Std Deviation 50.4 H, RDW Coeff of Delilah 14.6, Plt Count 49 L*, MPV 10.2, Immature Gran % (Auto) 0.000, Neut % (Auto) 29.6 L, Lymph % (Auto) 43.0 H, Collin % (Auto) 25.6 H, Eos % (Auto) 1.2, Baso % (Auto) 0.6, Absolute Neuts (auto) 0.5 L, Absolute Lymphs (auto) 0.74 L, Nucleated RBC % 1.2, Differential Comment , Diff Path Review Reviewed 12/04/20 05:50: Sodium 145, Potassium 3.6, Chloride 109 H, Carbon Dioxide 26.0, Anion Gap 10, BUN 7, Creatinine 0.57 L, Estim Creat Clear Calc 146.78, Est GFR (MDRD) Af Amer 187, Est GFR (MDRD) Non-Af 155, BUN/Creatinine Ratio 12.3, Glucose 122 H, Calcium 8.2 L Microbiology: Microbiology 12/03/20 11:35 Nasal Secretion SARS-CoV-2 Antigen (Rapid) - Final D/C Instructions Discharge Diet: No restrictions Weight Bearing Status: Weight bearing as tolerated Call your doctor if you observe: Fever of 101 or Higher, Numbness or Tingling, Shortness of breath, Dizziness, Chest pain, Increased palpitations (irregular heartbeat) and Calf discomfort Please Follow Up With: Primary care provider When: Within the next two weeks. Meaningful Use Info Meaningful Use Diagnoses (Choose all that apply): None applicable Discharge Plan Admission Admit Date/Time: 12/03/20 07:30 Primary Reason for Your Visit: Upper GI bleed Attending Provider: Kulwant Mccloud Primary Care Provider: Alice Cuellar Consulting Providers: Hugo Sheldon Discharge Orders/Prescriptions Prescriptions: New nadolol 20 mg tablet 20 mg PO BID Qty: 60 RF: 0 lactulose 10 gram/15 mL solution 10 g PO DAILY Qty: 473 RF: 0 Continued ferrous sulfate [iron] 325 MG tablet 325 mg PO DAILY RF: 0 potassium chloride 10 MEQ tablet extended release 10 meq PO BID RF: 0 magnesium oxide 400 MG tablet 400 mg PO DAILYCM RF: 0 folic acid 1 mg Tablet 1 mg PO DAILY RF: 0 tramadol 50 mg tablet 50 mg PO Q6H PRN (Reason: pain) Qty: 20 RF: 0 benzonatate 100 mg capsule 100 mg PO TID PRN PRN (Reason: Cough) RF: 0 trazodone 100 mg Tablet 100 mg PO QHS PRN (Reason: sleep) RF: 0 Discontinued nadolol 20 MG tablet 20 mg PO DAILY Qty: 30 RF: 2 lactulose 10 GM/15 ML solution 30 ml PO TID Qty: 473 RF: 0 No Action thiamine HCl (vitamin B1) [Vitamin B-1] 100 mg tablet 100 mg PO DAILY RF: 0 omeprazole 40 mg capsule,delayed release(DR/EC) 40 mg PO BID RF: 0 furosemide 20 mg tablet 20 mg PO DAILY RF: 0 spironolactone 50 mg tablet 50 mg PO DAILY RF: 0 Referrals / Follow Up: Alice Cuellar DO [Primary Care Provider] - Within 2 Weeks (Please call to setup an appointment. ) Friend,HugoDO [STAFF PHYSICIAN] - 12/17/20 9:45 am Disposition Disposition (needs filled in before D/C Order can be placed): Home, Self Care Documented by User: Dr. Kulwant Mccloud DO 12/04/20 15:48 Providers Date of Admission: 12/03/20 Reason For Visit: ACUTE GI BLEED Medications at Discharge Home Medications ferrous sulfate [iron] 325 mg PO DAILY 03/20/18 magnesium oxide 400 mg PO DAILYCM 03/12/20 potassium chloride 10 meq PO BID 03/12/20 folic acid 1 mg PO DAILY 11/15/20 tramadol 50 mg PO Q6H PRN #20 tab 11/16/20 benzonatate 100 mg PO TID PRN PRN 12/03/20 trazodone 100 mg PO QHS PRN 12/03/20 furosemide 20 mg PO DAILY 12/04/20 lactulose 10 g PO DAILY #473 ml 12/04/20 nadolol 20 mg PO BID #60 tab 12/04/20 omeprazole 40 mg PO BID 12/04/20 spironolactone 50 mg PO DAILY 12/04/20 thiamine HCl (vitamin B1) [Vitamin B-1] 100 mg PO DAILY 12/04/20 Hospital Course Procedures EGD Summary of Care Provided Minutes Spent on Discharge: 35 Hospital Course: 60-year-old male known history of cirrhosis presents with GI bleed. Patient underwent endoscopy on the fourth which showed esophageal delilah ices but without any intervention required. Patient follow-up with gastroenterology for banding of the varices. Patient advised to quit alcohol. Asked if he would would quit and he gave a very soft yes. Asked the patient what he wants information in regards to maintaining sobriety, he said he was not interested. Physical Exam Const alert Resp normal respiratory effort, no retractions, no use of accessory muscles and clear to auscultation bilaterally Cardio regular rate, regular rhythm, S1 normal heart sound and S2 normal heart sound GI normal to inspection, nondistended, normoactive bowel sounds ABG / Lab / Microbiology Data Result Diagrams: 12/04/20 05:50 12/04/20 05:50 Discharge Plan Admission Admit Date/Time: 12/03/20 07:30 Primary Reason for Your Visit: Upper GI bleed Attending Provider: Kulwant Mccloud Primary Care Provider: Alice Cuellar Consulting Providers: Hugo Sheldon Discharge Orders/Prescriptions Prescriptions: New nadolol 20 mg tablet 20 mg PO BID Qty: 60 RF: 0 lactulose 10 gram/15 mL solution 10 g PO DAILY Qty: 473 RF: 0 Continued ferrous sulfate [iron] 325 MG tablet 325 mg PO DAILY RF: 0 potassium chloride 10 MEQ tablet extended release 10 meq PO BID RF: 0 magnesium oxide 400 MG tablet 400 mg PO DAILYCM RF: 0 folic acid 1 mg Tablet 1 mg PO DAILY RF: 0 tramadol 50 mg tablet 50 mg PO Q6H PRN (Reason: pain) Qty: 20 RF: 0 benzonatate 100 mg capsule 100 mg PO TID PRN PRN (Reason: Cough) RF: 0 trazodone 100 mg Tablet 100 mg PO QHS PRN (Reason: sleep) RF: 0 Discontinued nadolol 20 MG tablet 20 mg PO DAILY Qty: 30 RF: 2 lactulose 10 GM/15 ML solution 30 ml PO TID Qty: 473 RF: 0 No Action thiamine HCl (vitamin B1) [Vitamin B-1] 100 mg tablet 100 mg PO DAILY RF: 0 omeprazole 40 mg capsule,delayed release(DR/EC) 40 mg PO BID RF: 0 furosemide 20 mg tablet 20 mg PO DAILY RF: 0 spironolactone 50 mg tablet 50 mg PO DAILY RF: 0 Referrals / Follow Up: Alice Cuellar DO [Primary Care Provider] - Within 2 Weeks (Please call to setup an appointment. ) Hugo Sheldon DO [STAFF PHYSICIAN] - 12/17/20 9:45 am Disposition Disposition (needs filled in before D/C Order can be placed): Home, Self Care Charges/Coding Visit Charges Inpatient E&M: 38341 Disch Hosp
--- NOTE | 2020-12-05 16:47 | CASEMGMT ---
KARINA DC F/u Call DC Date: 12.04.20 DC Diagnosis: Upper GIB, Cirrohsis of the Liver, Thrombocytopenia, unspecified DC Disposition: Home Lace/Strata: 12/06 Called patient listed cell phone number. No answer, patient VM box has not been set up yet. KARINA Dietz
== END 2020-12-04 12:25 | disposition home or self-care (01) | DRG 394 ==
LOC: ED 02:48 → PCU 04:15
PROVIDERS: Internal Medicine Gastroenterology; Physician Assistant; Admitting Provider Hospitalist; Emergency Provider Emergency Medicine; PCP Family Medicine
PROC: 0DJ08ZZ Inspection of Upper Intestinal Tract, Via Natural or Artificial Opening Endoscopic (ICD-10-PCS; CPT 43235; principal; 2020-12-03 15:25)
DX: I85.10 Secondary esophageal varices without bleeding (principal); D61.818 Other pancytopenia; K70.30 Alcoholic cirrhosis of liver without ascites; D64.9 Anemia, unspecified; I86.4 Gastric varices; D69.59 Other secondary thrombocytopenia; F17.210 Nicotine dependence, cigarettes, uncomplicated; I10 Essential (primary) hypertension; I73.9 Peripheral vascular disease, unspecified; Z86.79 Personal history of other diseases of the circulatory system
CPT/HCPCS: 36415; 80048; 80053; 83690; 85014; 85018; 85025; 85610; 85730; 86850; 86900; 86901; 86920; 86922; 86965; 87426; 99285; 99406; J7050; J7120; P9035; A4216; J2405

== ENCOUNTER 2021-01-01 13:10 | Day surgery (SDC) | payer OTHER, SELFPAY ==
[2021-01-01] VITALS (7 sets, daily range): BP systolic 106–128; BP diastolic 60–96; PULSE 73–94; RESP 16; TEMP 36.2–36.6; O2SAT 97–100; BMI 26.0
[2021-01-01] MEDS: Lactated Ringers 1,000 ML 100 ML IV (13:41)
--- NOTE | 2021-01-01 15:25 | PCM.HP.BLA ---
History and Physical Date of Admission: 01/01/21 [facility] HPI Chief Complaint: vomiting Details: JB ALARCON, is a 60 M who presented to the ED with hematemesis. 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 Patient was recently transferred to a hospital in [place] due to an upper GI bleed 2 weeks prior his recent admission. During that evaluation he underwent upper endoscopy and there was no sign of upper GI bleed. He presented to the emergency department early in the morning after having 2 episodes of hematemesis at home. He admits to drinking alcohol. In the ED, he was not hypotensive. He did have another episode of hematemesis in the ED. His hemoglobin was 12. After rechecking it it went to 10.9. He was started on a PPI drip and octreotide drip. He has no history of ascites. He has no history of metabolic encephalopathy. He has never been evaluated for TIPS procedure or transplantation. He has no history of arthrosclerotic heart disease. 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 He still continues to be hemodynamically stable. Underwent EGD was discovered to have grade 2 nonbleeding esophageal varices and grade 1 isolated gastric varices. He also discovered to have portal gastropathy. His symptoms today include nausea and abdominal pain which has improved somewhat since last visit. Dizziness continues but is improved since called last week. He has had 4-5 falls recently and dizziness is worst with position changes. Last visit 11/21/20 for follow up after hospitalization for bleeding gastric and esophageal varices and alcoholic cirrhosis. He has complaints of nausea without emesis and fatigue. 12/12/20 called questioning whether he should continue midodrine as it was not mentioned on his discharge list. She also reported she has been staying home because he was very lightheaded and dizzy. Further investigation noted that his nadolol was increased during hospitalization. Instructed to continue midodrine and stop nadolol. He still continues to drink alcohol every day. We had a long conversation over 30 minutes regarding his prognosis because he is still drinking and has a low-grade level of alcoholic hepatitis his prognosis is very poor. ROS Const Constitutional: Positive for fatigue and frequent falls Gastro GI: Positive for abdominal pain and nausea/dyspepsia Musc Musculoskeletal: Positive for joint pain, back pain, muscle cramps, stiffness and Arthritis Neuro Neurology: Positive for frequent falls Endo Endocrine: Positive for fatigue Exam Const General: cooperative and comfortable Nutritional Appearance: average body habitus and well nourished [facility] Head: normal to inspection Ears: hearing grossly normal bilaterally Nose: external nose normal Face and sinus: normal facial exam Mouth: oral mucosae normal Throat: posterior oropharynx normal Eyes General: appearance normal, both eyes and all related structures Neck Neck: normal visual inspection Chest Chest palpation & inspection: normal inspection of the chest and normal palpation of entire chest wall Resp Effort & Inspection: normal respiratory effort Auscultation: Bilateral: Clear to Auscultation Cardio Palpation: normal PMI Rate: regular rate Rhythm: regular rhythm GI Inspection: normal to inspection and obesity Auscultation: normal bowel sounds Percussion: normal to percussion Palpation: soft and splenomegaly Skin General: no rashes or lesions noted Neuro General: patient alert Extrem General: normal to inspection Psych Affect: normal affect Quality Reporting Tobacco Screening ([facility] 138) Smoking Status: Current some day smoker Assessment and Plan Assessment and Plan (1) History of alcohol abuse: Status: Chronic Plan - Dr. Arias Friend, DO: Patient continues to drink alcohol and does not wish to stop drinking alcohol at this time. I will continue to work with him and hopefully he will be able to stop drinking before it is too late. (2) Spontaneous bacterial peritonitis: Status: Acute Plan - Dr. Arias Friend, DO: History of SBP. I will start him on ciprofloxacin 750 mg once a week. (3) Cirrhosis: Status: Acute Plan - Dr. Arias Friend, DO: Patient currently has a meld score of 18. He still is actively drinking. Right now he has no signs of ascites, encephalopathy. He does have signs of alcoholic hepatitis. I will not start him on any steroids at this time due to being a fall risk and other comorbidities. He understands he is not a candidate for steroids at this time due to multiple confounding factors. (4) Varices of esophagus determined by endoscopy: Status: Acute Plan - Dr. Arias Friend, DO: I will schedule him for upper endoscopy to evaluate his varices and possibly perform banding to his varices in the esophagus
--- NOTE | 2021-01-01 15:55 | OP.EGD_ITS ---
Patient Name: Keyon Dillon Procedure Date: 01/01/2021 3:14 PM Date of : 1960 Age: 60 Procedure: Upper GI endoscopy Indications: Acute variceal bleeding, 2nd degree variceal eradication (following bleed) Providers: Hugo Sheldon DO Referring MD: Hugo Sheldon DO Medicines: See the Anesthesia note for documentation of the administered medications Patient Profile: This is a 60 year old male. Refer to note in patient chart for documentation of history and physical. Patient has symptoms of acute nausea. He is status post EGD for treatment of bleeding within the past month. Complications: No immediate complications. Procedure: Pre-Anesthesia Assessment: - Prior to the procedure, a History and Physical was performed, and patient medications and allergies were reviewed. The risks and benefits of the procedure and the sedation options and risks were discussed with the patient. All questions were answered and informed consent was obtained. Patient identification and proposed procedure were verified by the physician in the pre-procedure area. Mental Status Examination: alert and oriented. Airway Examination: normal oropharyngeal airway and neck mobility. Respiratory Examination: clear to auscultation. CV Examination: normal. Prophylactic Antibiotics: The patient does not require prophylactic antibiotics. Prior Anticoagulants: The patient has taken no previous anticoagulant or antiplatelet agents. ASA Grade Assessment: II - A patient with mild systemic disease. After reviewing the risks and benefits, the patient was deemed in satisfactory condition to undergo the procedure. The anesthesia plan was to use moderate sedation / analgesia (conscious sedation). Immediately prior to administration of medications, the patient was re-assessed for adequacy to receive sedatives. The heart rate, respiratory rate, oxygen saturations, blood pressure, adequacy of pulmonary ventilation, and response to care were monitored throughout the procedure. The physical status of the patient was re-assessed after the procedure. After obtaining informed consent, the endoscope was passed under direct vision. Throughout the procedure, the patient's blood pressure, pulse, and oxygen saturations were monitored continuously. The Endoscope was introduced through the mouth, and advanced to the second part of duodenum. The upper GI endoscopy was accomplished without difficulty. The patient tolerated the procedure well. Moderate Sedation: Moderate (conscious) sedation was administered by the endoscopy nurse and supervised by the endoscopist. The patient's oxygen saturation, heart rate, blood pressure and response to care were monitored. Total physician intraservice time was 15 minutes. Scope In: 3:39:37 PM Scope Out: 3:49:18 PM Total Procedure Duration Time 0 hours 9 minutes 41 seconds Findings: LA Grade A (one or more mucosal breaks less than 5 mm, not extending between tops of 2 mucosal folds) esophagitis with no bleeding was found 34 to 35 cm from the incisors. Three columns of non-bleeding grade II varices were found in the distal esophagus, 38 cm from the incisors. They were 5 mm in largest diameter. Stigmata of recent bleeding were evident and red suzanne signs were present. Stigmata of prior treatment were evident. Three bands were successfully placed with incomplete eradication of varices. There was no bleeding during the procedure. Severe portal hypertensive gastropathy was found on the posterior wall of the stomach. The second portion of the duodenum was normal. Impression: - LA Grade A reflux esophagitis. - Recently bleeding grade II esophageal varices. Incompletely eradicated. Banded. - Portal hypertensive gastropathy. - Normal second portion of the duodenum. - No specimens collected. Recommendation: - Discharge patient to home. - Clear liquid diet today. - Continue present medications. - Repeat upper endoscopy in 2 months for surveillance. - Return to GI office in 2 weeks. Procedure Code(s): --- Professional --- 21005, Esophagogastroduodenoscopy, flexible, transoral; with band ligation of esophageal/gastric varices G0500, Moderate sedation services provided by the same physician or other qualified health pet caretaker performing a gastrointestinal endoscopic service that sedation supports, requiring the presence of an independent trained observer to assist in the monitoring of the patient's level of consciousness and physiological status; initial 15 minutes of intra-service time; patient age 5 years or older (additional time may be reported with 46923, as appropriate) Diagnosis Code(s): --- Professional --- K21.0, Gastro-esophageal reflux disease with esophagitis I85.01, Esophageal varices with bleeding K76.6, Portal hypertension K31.89, Other diseases of stomach and duodenum CPT copyright 2017 [employer] [place] [employer]. All rights reserved. The codes documented in this report are preliminary and upon financial solutions advisor review may be revised to meet current compliance requirements. Hugo Sheldon DO 01/01/2021 3:54:58 PM This report has been signed electronically. Number of Addenda: 1 Note Initiated On: 01/01/2021 3:14 PM Addendum Number: 1 Addendum Date: 11/01/2021 6:06:03 AM MAC was used instead of moderate sedation for this patient. Hugo Sheldon DO 11/01/2021 6:06:11 AM This report has been signed electronically.
--- NOTE | 2021-01-01 15:56 | OP.CCLET_ITS ---
11/01/2021 Alice Cuellar [address] [facility] [place] [address] Re : Upper GI endoscopy procedure for Keyon Dillon Dear Dr. Cuellar This procedure was performed on Friday, January 01, 2021. My impressions and recommendations are as follows: Impressions : - LA Grade A reflux esophagitis. - Recently bleeding grade II esophageal varices. Incompletely eradicated. Banded. - Portal hypertensive gastropathy. - Normal second portion of the duodenum. - No specimens collected. Recommendations : - Discharge patient to home. - Clear liquid diet today. - Continue present medications. - Repeat upper endoscopy in 2 months for surveillance. - Return to GI office in 2 weeks. My findings are described in the full procedure note, which is enclosed. If I can be of further assistance, please feel free to contact me at . Sincerely, Hugo Sheldon, 01/01/2021 3:54:58 PM This report has been signed electronically.
== END 2021-01-01 17:11 | disposition home or self-care (01) ==
LOC: EN 13:11 → AC 13:16
PROVIDERS: PCP Family Medicine; Referring Provider Internal Medicine Gastroenterology; Visit Provider Internal Medicine Gastroenterology
PROC: 0DJ08ZZ Inspection of Upper Intestinal Tract, Via Natural or Artificial Opening Endoscopic (ICD-10-PCS; CPT 43235; principal; 2021-01-01 14:25)
DX: I85.01 Esophageal varices with bleeding (principal); K21.00 Gastro-esophageal reflux disease with esophagitis, without bleeding; K76.6 Portal hypertension; K31.89 Other diseases of stomach and duodenum; F10.10 Alcohol abuse, uncomplicated; K65.2 Spontaneous bacterial peritonitis; K70.30 Alcoholic cirrhosis of liver without ascites; F17.200 Nicotine dependence, unspecified, uncomplicated; K70.10 Alcoholic hepatitis without ascites; Y90.9 Presence of alcohol in blood, level not specified
CPT/HCPCS: 43244; 87426; C9803; J7120; J2405

== ENCOUNTER 2021-01-08 01:04 | Observation (INO) | payer OTHER, SELFPAY ==
[2021-01-08] VITALS (9 sets, daily range): BP systolic 118–147; BP diastolic 56–79; PULSE 62–95; RESP 16–18; TEMP 35.9–37.2; O2SAT 96–100; BMI 26.2; BMI 25.2
[2021-01-08] MEDS: Haloperidol Lactate 5 MG/ML Vial 2 MG IV (02:07)
[2021-01-08] MEDS: Famotidine 200 MG/20 ML MDV 20 MG in 0.9% Normal Saline (Pres. free 8 ML 300 MG IV (02:07)
[2021-01-08] MEDS: Ondansetron 4 MG/2 ML Vial IV ×2 (02:08→03:53)
[2021-01-08] MEDS: 0.9% Normal Saline 1,000 ML 125 ML IV ×2 (02:08→16:41)
[2021-01-08 02:31] LABS: Basophil# 0.01 X10^3/uL; Basophil% 0.3 % (0-1); Eosinophil# 0.01 X10^3/uL; Eosinophils% 0.3 % (0-5); Hematocrit 37.8 % (40-54); Hemoglobin 12.7 g/dL (13.0-16.5); Lymphocyte % 17.4 % (19-41); Mean Corp Hgb Conc 33.6 g/dL (32-36); Mean Corpuscular Hgb 30.9 pg (27.0-32.0); Mean Platelet Vol. 9.8 fl (6.2-12.0); Monocyte# 0.38 X10^3/uL; Monocyte% 13.2 % (0-10); NRBC Flagged by Analyzer 0 % (0-5); Neutrophil # 1.97 X10^3/uL (2.7-7.7); Neutrophil % 68.5 % (47-70); POSITIVE COUNT YES; POSITIVE DIFFERENTIAL YES; RBC Distribution Width CV 17.8 % (11.6-14.6); RBC Distribution Width SD 60.6 fl (35.1-43.9); Red Blood Count 4.11 M/mm3 (4.6-6.2); White Blood Count 2.9 K/mm3 (4.4-11.0)
[2021-01-08 02:37] LABS: Differential Indicated SCAN CRITERIA MET; Platelet Count 42 K/mm3 (150-450)
[2021-01-08 02:59] LABS: Differential Comment SCANNED; Platelet Estimate MKD DEC (ADEQ)
[2021-01-08 03:00] LABS: ALB/GLOB Ratio 0.7 RATIO (0.9-2.4); AST(SGOT) 39 U/L (15-37); Alanine Aminotransfer ALT/SGPT 27 U/L (16-61); Albumin, Serum 2.9 g/dL (3.2-5.0); Alkaline Phosphatase 101 U/L (45-117); Anion Gap 10 (5-15); BUN 6 mg/dL (7-18); Calcium,Total 8.7 mg/dL (8.5-10.1); Chloride 106 mmol/L (98-107); Creatinine, Serum 0.66 mg/dL (0.70-1.30); EST Glomerular Filtration Rate 130 mL/min (>60); Est Glom Filt Rate - Afr Amer 157 mL/min (>60); Estimated Creatinine Clearance 126.77 ml/min; Globulin 4.4 g/dL (2.2-4.2); Glucose 161 mg/dL (74-106); Lipase 199 U/L (73-393); Potassium 3.6 mmol/L (3.5-5.1); Protein, Total 7.3 g/dL (6.4-8.2); Sodium Level 138 mmol/L (136-145); Troponin-I HS 11 pg/mL (3.0-78.0)
[2021-01-08 03:02] LABS: Lactic Acid 4.1 mmol/L (0.4-1.9)
--- NOTE | 2021-01-08 03:13 | EDS_ITS ---
HPI HPI - GI History of Present Illness Chief Complaint: Abd Pain Informant: patient Narrative Narrative: Patient is a 60-year-old male presenting with abdominal pain and vomiting. Patient has a history of alcoholic cirrhosis, variceal bleeding with recent banding procedure performed by Dr. Sheldon. He regularly uses marijuana as well. He is presenting today with vomiting and abdominal pain. He states it started around 9 PM. It is a diffuse abdominal pain. He denies any blood or black in his vomit. He did drink 2 twisted teas and 2 ensures today. Patient denies any black or blood in his stool. He denies any chest pain. No other complaints at this time. He does have a history of AAA repair. [facility] Medical History (Updated 01/08/21 @ 09:[address] Denisha Pickett, ) Alcohol use Alcoholic cirrhosis Aortic aneurysm without rupture Arthritis Chronic anemia Chronic pain Cirrhosis Cirrhosis Cirrhosis Dehydration Diastolic dysfunction Esophageal varices in alcoholic cirrhosis Excessive bleeding Gastric reflux History of cirrhosis of liver History of esophageal varices History of GI bleed Hypotension Injury of head and neck Liver cirrhosis, alcoholic Marijuana use Near syncope Pancytopenia Peripheral arterial disease Smoker Thrombocytopenia Thrombocytopenia Varices of esophagus determined by endoscopy Walker as ambulation aid Wears glasses Home Medications ferrous sulfate [iron] 325 mg PO DAILY 03/20/18 [History Last Taken 03/11/20] magnesium oxide 400 mg PO DAILYCM 03/12/20 [History Last Taken 03/11/20] potassium chloride 10 meq PO BID 03/12/20 [History Last Taken 03/11/20] trazodone 100 mg PO QHS PRN 12/03/20 [History Last Taken Unknown] furosemide 20 mg PO DAILY 12/04/20 [History Last Taken Unknown] lactulose 10 g PO DAILY #473 ml 12/04/20 [Rx Last Taken Unknown] omeprazole 40 mg PO BID 12/04/20 [History Last Taken Unknown] spironolactone 50 mg PO BID 12/04/20 [History Last Taken Unknown] tramadol 50 mg tablet 50 mg PO Q6H PRN #20 tab 12/17/20 [Rx Last Taken Unknown] thiamine HCl (vitamin B1) 100 mg tablet 100 mg PO DAILY #30 tab 12/20/20 [Rx Last Taken Unknown] midodrine 10 mg PO TID 12/27/20 [History Last Taken 01/01/21 09:00] multivitamin 1 tab PO DAILY 12/27/20 [History Last Taken Unknown] Allergy/AdvReac Type Severity Reaction Status Date / Time No Known Allergies Allergy Verified 01/08/21 01:05 Family History Mother Cancer Father Lupus Surgical History (Updated 01/08/21 @ 08:[address] Dina Diehl MD) History of aortic aneurysm repair History of esophagogastroduodenoscopy (EGD) History of removal of cyst Social History household members: none Smoking Status: Current some day smoker tobacco type: cigarettes alcohol intake: current alcohol intake frequency: a few times a week substance use type: does not use ROS ROS ED Constitutional Constitutional ED: Denies chills or fever(s) ENT ENT ED: Denies rhinorrhea Cardiovascular Cardiovascular: Denies chest pain Respiratory/Chest Respiratory/Chest: Denies dyspnea Gastrointestinal Gastrointestinal: Reports abdominal pain, nausea and vomiting; Denies constipation or diarrhea Genitourinary Genitourinary ED: Denies dysuria Musculoskeletal Musculoskeletal: Denies myalgias Integumentary Denies rash Neurologic Neurologic: Denies headache(s) or weakness Psychiatric Psychiatric: Denies depression EXAM Physical Exam Const Vital Signs: 01/08/21 01:06 01/08/21 03:54 01/08/21 07:00 Temperature 96.7 F L Temperature Source Temporal Pulse Rate 95 87 Respiratory Rate 16 18 Blood Pressure 146/78 H 120/79 119/56 L Blood Pressure Mean 100 92 77 Pulse Ox 100 97 Oxygen Delivery Method Room Air Room Air 01/08/21 07:47 Temperature Temperature Source Pulse Rate 89 Respiratory Rate 16 Blood Pressure 147/67 H Blood Pressure Mean 93 Pulse Ox 98 Oxygen Delivery Method Room Air Positive well nourished and well developed General Appearance ED: well developed and other Chronically ill-appearing HEENT Reports moist mucous membranes normocephalic and atraumatic Eyes PERRL Neck supple and no JVD Resp normal respiratory effort and clear to auscultation bilaterally Cardio regular rate, regular rhythm and no murmurs GI Palpation: soft and tender epigastric and periumbilical; Negative for guarding or rigid Back/Spine no CVA tenderness Extremity full ROM General Extremety ED: Negative for edema or tenderness General Extremity: Negative for edema Neuro Sensorium / Orientation: alert, oriented to person, oriented to place and oriented to time Motor Exam: Negative for general weakness Psych mental status grossly normal Skin General Skin Exam: Negative for jaundice Lesions: no lesions Rashes: no rashes MDM MDM MDM Narrative Medical decision making narrative: Patient is evaluated for abdominal pain and nausea and vomiting. He has a history of cirrhosis and continues to drink alcohol. He recently had esophageal banding this week. He is given IV Zofran, IV Haldol and Pepcid initially with no significant improvement of his symptoms. He is given another dose of Zofran and then morphine. He is given a fluid bolus and then started on maintenance fluids. Lactic acid is elevated at 4.1. He has a chronic leukocytosis and actually an improving anemia. His platelet count is low at 42 but this also appears to be his baseline. Lactic acidosis does improve with IV fluids. There is not appear to be any obvious infectious cause. I did add on a CT the abdomen pelvis to make sure there is no acute surgical abnormalities. Patient has gallstones which is chronic but no other acute findings. Discussed the case with his GI doctor who is agreeable with patient coming in the medicine if his symptoms cannot be controlled. Patient be admitted for intractable nausea and abdominal pain. I suspect his lactic acidosis is associated with dehydration and his profuse vomiting. Patient is hemodynamically stable while in the emergency room. Lab Data Labs: Laboratory Results - last 24 hr 01/08/21 01/08/21 01/08/21 02:10 02:10 02:10 WBC 2.9 L RBC 4.11 L Hgb 12.7 L Hct 37.8 L MCV 92.0 MCH 30.9 MCHC 33.6 RDW Std Deviation 60.6 H RDW Coeff of Delilah 17.8 H Plt Count 42 L* MPV 9.8 Immature Gran % (Auto) 0.300 Neut % (Auto) 68.5 Lymph % (Auto) 17.4 L Parke % (Auto) 13.2 H Eos % (Auto) 0.3 Baso % (Auto) 0.3 Absolute Neuts (auto) 2.0 Absolute Lymphs (auto) 0.50 L Nucleated RBC % 0 Differential Comment SCANNED Diff Path Review May foll Platelet Estimate MKD DEC Sodium 138 Potassium 3.6 Chloride 106 Carbon Dioxide 22.0 Anion Gap 10 BUN 6 L Creatinine 0.66 L Estim Creat Clear Calc 126.77 Est GFR (MDRD) Af Amer 157 Est GFR (MDRD) Non-Af 130 BUN/Creatinine Ratio 9.0 L Glucose 161 H Lactic Acid 4.1 H* Calcium 8.7 Total Bilirubin 0.80 AST 39 H ALT 27 Alkaline Phosphatase 101 Troponin I High Sens 11 Total Protein 7.3 Albumin 2.9 L Globulin 4.4 H Albumin/Globulin Ratio 0.7 L Lipase 199 01/08/21 07:18 WBC RBC Hgb Hct MCV MCH MCHC RDW Std Deviation RDW Coeff of Delilah Plt Count MPV Immature Gran % (Auto) Neut % (Auto) Lymph % (Auto) [place]ke % (Auto) Eos % (Auto) Baso % (Auto) Absolute Neuts (auto) Absolute Lymphs (auto) Nucleated RBC % Differential Comment Diff Path Review Platelet Estimate Sodium Potassium Chloride Carbon Dioxide Anion Gap BUN Creatinine Estim Creat Clear Calc Est GFR (MDRD) Af Amer Est GFR (MDRD) Non-Af BUN/Creatinine Ratio Glucose Lactic Acid 2.3 H* Calcium Total Bilirubin AST ALT Alkaline Phosphatase Troponin I High Sens Total Protein Albumin Globulin Albumin/Globulin Ratio Lipase Radiography Diagnostic Testing: Clinical Impression(s) from Imaging Studies Abdomen/Pelvis CT 01/08/21 06:41 IMPRESSION: There is a diffuse contour abnormality of the liver consistent with cirrhotic changes. There is recannulization of the umbilical vein consistent with portal hypertension. There are multiple gallstones. Electronically Signed: Skylar Galeana MD at 7:53 EST Tel , Service support , Discharge Plan Triage Chief Complaint: Abd Pain ED Provider: Denisha Pickett Dx/Rx/DC Orders Clinical Impression: Intractable vomiting, Cirrhosis, Acute epigastric pain, Varices of esophagus determined by endoscopy Primary Care Provider: Alice Cuellar Disposition Disposition: [facility] (Former[facility]3] Care [facility]
[2021-01-08 06:26] LABS: Reflex Lactate? Y
--- NOTE | 2021-01-08 06:41 | CT_ITS ---
STUDY: CT ABDOMEN AND PELVIS WITH CONTRAST REASON FOR EXAM: Male, 60 years old. abdominal pain RADIATION DOSAGE (If Supplied By Facility): CTDIvol = ( 13.68 ) mGy, DLP = ( 1188.64 ) mGycm TECHNIQUE: Transaxial images were obtained from the dome of the diaphragm to the symphysis pubis without oral contrast. IV 100mL Isovue-370 was administered. Sagittal and coronal images were reconstructed. Individualized dose optimization techniques were used for this CT. COMPARISON: None. FINDINGS: The visualized lung bases are unremarkable. The visualized portions of the heart are within normal limits. There is a diffuse contour abnormality of the liver consistent with cirrhotic changes. There is recannulization of the umbilical vein consistent with portal hypertension. There are multiple gallstones. Normal spleen. Normal pancreas. Normal bilateral adrenal glands. Normal right kidney. Normal left kidney. Normal visualized stomach. Normal small intestine. Normal colon. The appendix is visualized and appears normal. Normal abdominal aorta. Normal inferior vena cava. Normal retroperitoneum. Normal urinary bladder. Normal abdominal wall. Normal osseous structures. CT/Abdomen/Pelvis W IV Cont ONLY IMPRESSION: There is a diffuse contour abnormality of the liver consistent with cirrhotic changes. There is recannulization of the umbilical vein consistent with portal hypertension. There are multiple gallstones. Electronically Signed: Skylar Galeana MD at 7:53 EST Tel , Service support ,
[2021-01-08] MEDS: Morphine 4 MG/ML Syringe IV (07:04)
[2021-01-08] MEDS: 0.9% Normal Saline 1,000 ML 1000 ML IV (07:04)
[2021-01-08 07:53] LABS: Lactic Acid 2.3 mmol/L (0.4-1.9)
--- NOTE | 2021-01-08 08:05 | NURSING ---
DR ROLDAN FOR DR GLYNN
--- NOTE | 2021-01-08 08:10 | PCM.HP.STD ---
HPI - General General Date of Admission: 01/08/21 Date of Service: 01/08/21 Chief Complaint: Intractable nausea and vomiting - 1 day HPI Narrative JB ALARCNO, is a 60 M who presents with the above. He has a past medical history of cirrhosis, complicated by portal hypertensive gastropathy, esophageal varices status post banding on 01/01/21, history of abdominal aortic aneurysm repair, chronic alcohol abuse chronic thrombocytopenia from alcohol use. Patient presents with intractable nausea and vomiting that started 9 PM the previous day. He stated that he had a cheeseburger. Prior to that he drank 2 beers that afternoon. He continues to drink and drinks about 6 beers or more a week. He denies any hematemesis or melena. He admits to feeling dizzy, but denies any chest pain or cough or fever or chills. In the ED, his vitals were stable. His admitting blood work was unremarkable except for lactic acid of 2.2, chronic thrombocytopenia with platelet count 42,000, hemoglobin is 12.7, increased from 10.3. CT of the abdomen and pelvis with contrast shows liver cirrhosis with recannulization of the umbilical vein suggestive of portal hypertension, multiple gallstones. Normal abdominal aorta [facility] Medical History (Updated 01/08/21 @ 08:[address] Dina Diehl MD) Alcohol use Alcoholic cirrhosis Aortic aneurysm without rupture Arthritis Chronic anemia Chronic pain Cirrhosis Cirrhosis Cirrhosis Dehydration Diastolic dysfunction Esophageal varices in alcoholic cirrhosis Excessive bleeding Gastric reflux History of cirrhosis of liver History of esophageal varices History of GI bleed Hypotension Injury of head and neck Liver cirrhosis, alcoholic Marijuana use Near syncope Pancytopenia Peripheral arterial disease Smoker Thrombocytopenia Thrombocytopenia Varices of esophagus determined by endoscopy Walker as ambulation aid Wears glasses Home Medications ferrous sulfate [iron] 325 mg PO DAILY 03/20/18 [History Last Taken 03/11/20] magnesium oxide 400 mg PO DAILYCM 03/12/20 [History Last Taken 03/11/20] potassium chloride 10 meq PO BID 03/12/20 [History Last Taken 03/11/20] trazodone 100 mg PO QHS PRN 12/03/20 [History Last Taken Unknown] furosemide 20 mg PO DAILY 12/04/20 [History Last Taken Unknown] lactulose 10 g PO DAILY #473 ml 12/04/20 [Rx Last Taken Unknown] omeprazole 40 mg PO BID 12/04/20 [History Last Taken Unknown] spironolactone 50 mg PO BID 12/04/20 [History Last Taken Unknown] tramadol 50 mg tablet 50 mg PO Q6H PRN #20 tab 12/17/20 [Rx Last Taken Unknown] thiamine HCl (vitamin B1) 100 mg tablet 100 mg PO DAILY #30 tab 12/20/20 [Rx Last Taken Unknown] midodrine 10 mg PO TID 12/27/20 [History Last Taken 01/01/21 09:00] multivitamin 1 tab PO DAILY 12/27/20 [History Last Taken Unknown] Allergy/AdvReac Type Severity Reaction Status Date / Time No Known Allergies Allergy Verified 01/08/21 01:05 Family History Mother Cancer Father Lupus Surgical History (Updated 01/08/21 @ 08:[address] Dina Diehl MD) History of aortic aneurysm repair History of esophagogastroduodenoscopy (EGD) History of removal of cyst Social History household members: none Smoking Status: Current some day smoker tobacco type: cigarettes alcohol intake: current alcohol intake frequency: a few times a week substance use type: does not use ROS ROS Narrative Constitutional: Reports: Anorexia Denies: Chills, Fever, Night Sweats, Weight Change Eyes: Denies: Blurred vision, Cataracts, Conjunctivae Inflammation, Pain, Redness, Vision Change HEENT: Denies: Difficulty Hearing, Difficulty Swallowing, Head Aches, Hearing Changes, Sinus Congestion, Sinus Drainage Cardiovascular: Denies: Chest Pain, Orthopnea, Palpitations Respiratory: Denies: Cough, Shortness of breath at rest, Sputum production Gastrointestinal: Admits to Abdominal Pain, Nausea, Vomiting Genitourinary: Denies: Dysuria Musculoskeletal: Denies: Joint Pain, Joint stiffness, Joint swelling, Joint Tenderness Skin: Denies: Rash, Wounds Neurological: Denies: Numbness, Tingling, Focal weakness Vital Signs Vital Signs Vital Signs: 01/08/21 01:06 01/08/21 03:54 01/08/21 07:00 Temperature 96.7 F L Temperature Source Temporal Pulse Rate 95 87 Respiratory Rate 16 18 Blood Pressure 146/78 H 120/79 119/56 L Blood Pressure Mean 100 92 77 Pulse Ox 100 97 Oxygen Delivery Method Room Air Room Air 01/08/21 07:47 Temperature Temperature Source Pulse Rate 89 Respiratory Rate 16 Blood Pressure 147/67 H Blood Pressure Mean 93 Pulse Ox 98 Oxygen Delivery Method Room Air Weight Weight: 85.1 kg Body Mass Index (BMI) 26.2 Physical Exam Narrative Physical exam: General: Alert, Oriented x3, Cooperative, No apparent distress, Well developed HEENT: Atraumatic Oral: Moist Mucosa Neck: Supple Lungs: Clear to auscultation Cardiovascular: HS I+II, regular, no murmurs Abdomen: Bowel Sounds Present, Soft, Non Tender Extremities: No edema Results Lab / Micro Data Result Diagrams: 01/08/21 02:10 01/08/21 02:10 Labs: Laboratory Results - last 24 hr 01/08/21 02:10: WBC 2.9 L, RBC 4.11 L, Hgb 12.7 L, Hct 37.8 L, MCV 92.0, MCH 30.9, MCHC 33.6, RDW Std Deviation 60.6 H, RDW Coeff of Delilah 17.8 H, Plt Count 42 L*, MPV 9.8, Immature Gran % (Auto) 0.300, Neut % (Auto) 68.5, Lymph % (Auto) 17.4 L, [place] % (Auto) 13.2 H, Eos % (Auto) 0.3, Baso % (Auto) 0.3, Absolute Neuts (auto) 2.0, Absolute Lymphs (auto) 0.50 L, Nucleated RBC % 0, Differential Comment SCANNED, Diff Path Review June, Platelet Estimate MKD 01/08/21 02:10: Sodium 138, Potassium 3.6, Chloride 106, Carbon Dioxide 22.0, Anion Gap 10, BUN 6 L, Creatinine 0.66 L, Estim Creat Clear Calc 126.77, Est GFR (MDRD) Af Amer 157, Est GFR (MDRD) Non-Af 130, BUN/Creatinine Ratio 9.0 L, Glucose 161 H, Calcium 8.7, Total Bilirubin 0.80, AST 39 H, ALT 27, Alkaline Phosphatase 101, Troponin I High Sens 11, Total Protein 7.3, Albumin 2.9 L, Globulin 4.4 H, Albumin/Globulin Ratio 0.7 L, Lipase 199 01/08/21 02:10: Lactic Acid 4.1 H* 01/08/21 07:18: Lactic Acid 2.3 H* Radiology Impression Abdomen/Pelvis CT 01/08/21 06:41 IMPRESSION: There is a diffuse contour abnormality of the liver consistent with cirrhotic changes. There is recannulization of the umbilical vein consistent with portal hypertension. There are multiple gallstones. Electronically Signed: Skylar Galeana MD at 7:53 EST Tel , Service support , Assessment & Plan Assessment/Plan (1) Intractable vomiting: QUALIFIERS: Vomiting type: unspecified Nausea presence: with nausea Qualified Code(s): R11.2 - Nausea with vomiting, unspecified (2) Abdominal pain: QUALIFIERS: Abdominal location: right lower quadrant Qualified Code(s): R10.31 - Right lower quadrant pain PLAN: 1. Acute intractable nausea and vomiting likely secondary to alcohol/marijuana use Patient denies hematemesis History of recent esophageal banding on 01/01/21 CT of the abdomen and pelvis with contrast is unremarkable for etiology of the above Would admit under observation IV fluids, IV PPI twice daily, antiemetics 2.Dehydration secondary to #1, will continue on IV fluid 3. Alcoholic liver cirrhosis complicated with portal hypertensive gastropathy, esophageal varices s/p banding We will continue on lactulose, PPI, spironolactone, nadolol 4. Chronic alcohol use disorder, will continue on thiamine, monitor for acute alcohol withdrawal 5. DVT prophylaxis?SCDs Charges/Coding Visit Charges OBSV E&M: 04469 Initial observation care L3
--- NOTE | 2021-01-08 08:28 | NURSING ---
322 NUNASHH OBS INTRACTABLE VOMITING, DEHYDRATION
--- NOTE | 2021-01-08 09:18 | ED.RN ---
Unable to update vitals and temp prior to admit. Patient out of unit. Used last vitals and temp. Prompted Sepsis alert. Floor notified.
[2021-01-08 15:40] LABS: Pathologist Review Reviewed
[2021-01-08] MEDS: Spironolactone 50 MG Tablet PO (22:01)
[2021-01-09] MEDS: 0.9% Normal Saline 1,000 ML 125 ML IV ×2 (00:23→08:36)
[2021-01-09 03:36] VITALS: BP 126/67; PULSE 84; PULSE 85; RESP 16; TEMP 36.8; O2SAT 97
[2021-01-09 07:38] LABS: Absolute Lymphocyte Count 1.15 X10^3/uL (0.83-4.51); Absolute Neutrophil Count 1.2 X10^3/uL (2.0-7.7); Basophil# 0.01 X10^3/uL; Basophil% 0.3 % (0-1); Eosinophil# 0.01 X10^3/uL; Eosinophils% 0.3 % (0-5); Hematocrit 34.5 % (40-54); Hemoglobin 11.2 g/dL (13.0-16.5); Lymphocyte # 1.15 X10^3/ul (0.83-4.51); Lymphocyte % 39.1 % (19-41); Mean Corp Hgb Conc 32.5 g/dL (32-36); Mean Corpuscular Hgb 30.5 pg (27.0-32.0); Monocyte# 0.53 X10^3/uL; NRBC Flagged by Analyzer 0 % (0-5); Neutrophil # 1.24 X10^3/uL (2.7-7.7); Neutrophil % 42.3 % (47-70); POSITIVE COUNT YES; RBC Distribution Width CV 18.3 % (11.6-14.6); Red Blood Count 3.67 M/mm3 (4.6-6.2); White Blood Count 2.9 K/mm3 (4.4-11.0)
[2021-01-09 07:58] LABS: ALB/GLOB Ratio 0.7 RATIO (0.9-2.4); AST(SGOT) 34 U/L (15-37); Alanine Aminotransfer ALT/SGPT 23 U/L (16-61); Albumin, Serum 2.3 g/dL (3.2-5.0); Alkaline Phosphatase 76 U/L (45-117); Anion Gap 5 (5-15); BUN 6 mg/dL (7-18); BUN/Creat Ratio 9.8 RATIO (10-20); Calcium,Total 7.6 mg/dL (8.5-10.1); Chloride 107 mmol/L (98-107); Creatinine, Serum 0.61 mg/dL (0.70-1.30); EST Glomerular Filtration Rate 143 mL/min (>60); Est Glom Filt Rate - Afr Amer 173 mL/min (>60); Estimated Creatinine Clearance 137.16 ml/min; Globulin 3.5 g/dL (2.2-4.2); Glucose 136 mg/dL (74-106); Potassium 3.5 mmol/L (3.5-5.1); Protein, Total 5.8 g/dL (6.4-8.2); Sodium Level 138 mmol/L (136-145)
[2021-01-09 08:41] VITALS: BP 131/66; PULSE 77; RESP 16; TEMP 36.7; O2SAT 99
[2021-01-09] MEDS: Midodrine HCl 5 MG Tablet 10 MG PO (08:49)
[2021-01-09] MEDS: Lactulose 20 GM/30 ML UDC 10 GM PO (08:49)
[2021-01-09] MEDS: Multivitamins,Therapeutic Tablet 1 TABLET PO (08:49)
[2021-01-09] MEDS: Thiamine Hydrochloride 100 MG Tablet PO (08:49)
[2021-01-09] MEDS: Spironolactone 50 MG Tablet PO (08:49)
[2021-01-09 08:53] LABS: Platelet Count 31 K/mm3 (150-450)
[2021-01-09 10:33] LABS: Amphetamine Urine VISTA NEGATIVE (<1000 ng/mL); Barbiturate Urine VISTA NEGATIVE (< 200 ng/mL); Benzodiazepine Urine VISTA NEGATIVE (< 200 ng/mL); Cocaine Urine VISTA NEGATIVE (< 300 ng/mL); Ecstacy Urine VISTA NEGATIVE (< 500 ng/mL); Methadone Urine VISTA NEGATIVE (< 300 ng/mL); PCP Urine VISTA NEGATIVE (< 25 ng/mL); THC Urine VISTA POSITIVE (< 50 ng/mL); Vista UDS pH Range 5
--- NOTE | 2021-01-09 11:12 | PCM.DC ---
Discharge Instructions Diet Discharge Diet: No restrictions Activity Discharge Activity: Return to Normal Activity Follow Up Care Test Results: Test results from this visit will be discussed in further detail at your follow-up appointment, if applicable. Discharge Plan Admission Admit Date/Time: 01/08/21 08:07 Primary Reason for Your Visit: Abdominal pain Attending Provider: Dina Diehl Primary Care Provider: Alice Cuellar Instructions Additional Instructions / Restrictions: You are strongly advised to quit drinking alcohol. Take all your medications as prescribed. Discharge Orders/Prescriptions Prescriptions: Continued tramadol 50 mg tablet 50 mg PO Q6H PRN (Reason: pain) Qty: 20 RF: 0 ferrous sulfate [iron] 325 MG tablet 325 mg PO DAILY RF: 0 potassium chloride 10 MEQ tablet extended release 10 meq PO BID RF: 0 magnesium oxide 400 MG tablet 400 mg PO DAILYCM RF: 0 trazodone 100 mg Tablet 100 mg PO QHS PRN (Reason: sleep) RF: 0 lactulose 10 gram/15 mL solution 10 g PO DAILY Qty: 473 RF: 0 omeprazole 40 mg capsule,delayed release(DR/EC) 40 mg PO BID RF: 0 furosemide 20 mg tablet 20 mg PO DAILY RF: 0 spironolactone 50 mg tablet 50 mg PO BID RF: 0 multivitamin Tablet 1 tab PO DAILY RF: 0 midodrine 10 mg tablet 10 mg PO TID RF: 0 thiamine HCl (vitamin B1) [Vitamin B-1] 100 mg tablet 100 mg PO DAILY Qty: 30 RF: 2 Referrals / Follow Up: Alice Cuellar DO [Primary Care Provider] - Within 2 Weeks FriendHugo DO [STAFF PHYSICIAN] - See Referral Note (As scheduled) Disposition Discharge Orders: Discharge Patient (Routine); Ordered 01/09/21 Ordered By: Dr. Dina Diehl
--- NOTE | 2021-01-09 11:25 | PCM.DC.SUM ---
Providers Date of Admission: 01/08/21 Date of Discharge: 01/09/21 Primary Care Physician: Dr. Alice Cuellar DO Reason For Visit: INTRACTABLE VOMITING Diagnosis Discharge Diagnosis (1) Intractable vomiting: Status: Resolved Code(s): R11.10 - Vomiting, unspecified Qualifiers: Nausea presence: with nausea Vomiting type: unspecified Qualified Code(s): R11.2 - Nausea with vomiting, unspecified (2) Abdominal pain: Status: Resolved Code(s): R10.9 - Unspecified abdominal pain Qualifiers: Abdominal location: right lower quadrant Qualified Code(s): R10.31 - Right lower quadrant pain Medications at Discharge Home Medications ferrous sulfate [iron] 325 mg PO DAILY 03/20/18 magnesium oxide 400 mg PO DAILYCM 03/12/20 potassium chloride 10 meq PO BID 03/12/20 trazodone 100 mg PO QHS PRN 12/03/20 furosemide 20 mg PO DAILY 12/04/20 lactulose 10 g PO DAILY #473 ml 12/04/20 omeprazole 40 mg PO BID 12/04/20 spironolactone 50 mg PO BID 12/04/20 tramadol 50 mg tablet 50 mg PO Q6H PRN #20 tab 12/17/20 thiamine HCl (vitamin B1) 100 mg tablet 100 mg PO DAILY #30 tab 12/20/20 midodrine 10 mg PO TID 12/27/20 multivitamin 1 tab PO DAILY 12/27/20 Hospital Course Operations None Procedures None Summary of Care Provided Minutes Spent on Discharge: 45 Hospital Course: JB ALARCON, is a 60 M with past medical history of cirrhosis, complicated by portal hypertensive gastropathy, esophageal varices status post banding on 01/01/21, history of abdominal aortic aneurysm repair, chronic alcohol abuse chronic thrombocytopenia from alcohol use who presents with intractable nausea and vomiting that started 9 PM the previous day. He continues to drink and drinks about 6 beers or more a week. He denies any hematemesis or melena. He was managed in the ED with IVF and antiemetics with no improvement. He was admitted for symptomatic management. He was kept NPO, given IVF. He improved and his diet was advanced. He continues to improve and was discharged hme. He was advised to quit drinking alcohol. Physical Exam Narrative Physical exam: General: Alert, Oriented x3, Cooperative, No apparent distress, Well developed HEENT: Atraumatic Oral: Moist Mucosa Neck: Supple Lungs: Clear to auscultation Cardiovascular: HS I+II, regular, no murmurs Abdomen: Bowel Sounds Present, Soft, Non Tender Extremities: No edema Weight / BMI Weight Weight: 83.7 kg Body Mass Index (BMI) 25.2 ABG / Lab / Microbiology Data Result Diagrams: 01/09/21 06:50 01/09/21 06:50 Laboratory: Laboratory Results - last 24 hr 01/08/21 02:10: Diff Path Review Reviewed 01/09/21 03:00: Urine Opiates Screen POSITIVE H, Urine Methadone Screen NEGATIVE, Ur Barbiturates Screen NEGATIVE, Ur Phencyclidine Scrn NEGATIVE, Ur Amphetamines Screen NEGATIVE, U Methamphetamin-MDMA NEGATIVE, U Benzodiazepines Scrn NEGATIVE, Urine Cocaine Screen NEGATIVE, U Cannabinoids Screen POSITIVE H, Ur Drug Screen Comment 01/09/21 06:50: WBC 2.9 L, RBC 3.67 L, Hgb 11.2 L, Hct 34.5 L, MCV 94.0, MCH 30.5, MCHC 32.5, RDW Std Deviation 63.0 H, RDW Coeff of Delilah 18.3 H, Plt Count 31 L*, MPV 11.0, Immature Gran % (Auto) 0.000, Neut % (Auto) 42.3 L, Lymph % (Auto) 39.1, [place] % (Auto) 18.0 H, Eos % (Auto) 0.3, Baso % (Auto) 0.3, Absolute Neuts (auto) 1.2 L, Absolute Lymphs (auto) 1.15, Nucleated RBC % 0, Diff Path Review May foll 01/09/21 06:50: Sodium 138, Potassium 3.5, Chloride 107, Carbon Dioxide 26.0, Anion Gap 5, BUN 6 L, Creatinine 0.61 L, Estim Creat Clear Calc 137.16, Est GFR (MDRD) Af Amer 173, Est GFR (MDRD) Non-Af 143, BUN/Creatinine Ratio 9.8 L, Glucose 136 H, Calcium 7.6 L, Total Bilirubin 1.40 H, AST 34, ALT 23, Alkaline Phosphatase 76, Total Protein 5.8 L, Albumin 2.3 L, Globulin 3.5, Albumin/Globulin Ratio 0.7 L D/C Instructions Discharge Diet: No restrictions Meaningful Use Info Meaningful Use Diagnoses (Choose all that apply): None applicable Discharge Plan Admission Admit Date/Time: 01/08/21 08:07 Primary Reason for Your Visit: Abdominal pain Attending Provider: Dina Diehl Primary Care Provider: Alice Cuellar Instructions Additional Instructions / Restrictions: You are strongly advised to quit drinking alcohol. Take all your medications as prescribed. Discharge Orders/Prescriptions Prescriptions: Continued tramadol 50 mg tablet 50 mg PO Q6H PRN (Reason: pain) Qty: 20 RF: 0 ferrous sulfate [iron] 325 MG tablet 325 mg PO DAILY RF: 0 potassium chloride 10 MEQ tablet extended release 10 meq PO BID RF: 0 magnesium oxide 400 MG tablet 400 mg PO DAILYCM RF: 0 trazodone 100 mg Tablet 100 mg PO QHS PRN (Reason: sleep) RF: 0 lactulose 10 gram/15 mL solution 10 g PO DAILY Qty: 473 RF: 0 omeprazole 40 mg capsule,delayed release(DR/EC) 40 mg PO BID RF: 0 furosemide 20 mg tablet 20 mg PO DAILY RF: 0 spironolactone 50 mg tablet 50 mg PO BID RF: 0 multivitamin Tablet 1 tab PO DAILY RF: 0 midodrine 10 mg tablet 10 mg PO TID RF: 0 thiamine HCl (vitamin B1) [Vitamin B-1] 100 mg tablet 100 mg PO DAILY Qty: 30 RF: 2 Referrals / Follow Up: Alice Cuellar DO [Primary Care Provider] - Within 2 Weeks Hugo Sheldon DO [STAFF PHYSICIAN] - See Referral Note (As scheduled) Disposition Disposition (needs filled in before D/C Order can be placed): Home, Self Care Charges/Coding Visit Charges Inpatient E&M: 64610 Disch Hosp
--- NOTE | 2021-01-09 12:28 | PHA.DC.MR ---
Pharmacy Service has performed discharge medication reconciliation for this patient. The patient's discharge medication list was reviewed for discrepancies and discrepancies were resolved. Home Medications ferrous sulfate [iron] 325 mg PO DAILY 03/20/18 magnesium oxide 400 mg PO DAILYCM 03/12/20 potassium chloride 10 meq PO BID 03/12/20 trazodone 100 mg PO QHS PRN 12/03/20 furosemide 20 mg PO DAILY 12/04/20 lactulose 10 g PO DAILY #473 ml 12/04/20 omeprazole 40 mg PO BID 12/04/20 spironolactone 50 mg PO BID 12/04/20 tramadol 50 mg tablet 50 mg PO Q6H PRN #20 tab 12/17/20 thiamine HCl (vitamin B1) 100 mg tablet 100 mg PO DAILY #30 tab 12/20/20 midodrine 10 mg PO TID 12/27/20 multivitamin 1 tab PO DAILY 12/27/20
[2021-01-09 13:05] LABS: Pathologist Review Reviewed
--- NOTE | 2021-01-09 15:03 | CHAPLAIN ---
Type of Pastoral Visit _x__ Initial Visit ___ Follow-up Visit ___ On-call Visit ___ General Patient Visit ___ Spiritual Assessment ___ Family Conference ___ Bereavement ___ Rapid Response ___ Code Blue ___ Other (describe below) Pastoral Care Referral From _x__ Patient ___ Family ___ Nurse ___ Physician ___ Financial Operations Clerk ___ Picture Enlarger ___ Other (describe below) Sacrament/Intervention _x__ Active listening ___ Anointing ___ Restoration ___ Bereavement ___ Communion _x__ Karen exploration ___ _x__ Life review _x__ Prayer ___ Reconciliation ___ Sacrament of Sick _x__ Supportive presence ___ Wedding ___ Other (describe below) Pastoral Comments patient does welcome the visit and states several times I've got some thinking to do; when pressed about what he must think of, he is somewhat vague although he talks about stopping his alcohol use and tobacco use as keys to his health; pt does not have a plan to quit these except to talk it over with his and to stop it by his will power; pt is tearful at times particularly after prayer but does not elaborate, instead talks about another subject;
[2021-01-09 15:20] VITALS: BP 137/54; PULSE 88; RESP 18; TEMP 36.7; O2SAT 98
== END 2021-01-09 15:55 | disposition home or self-care (01) ==
LOC: ED 01:31 → MS3 08:33
PROVIDERS: Admitting Provider Internal Medicine; Emergency Provider Emergency Medicine; PCP Family Medicine; Visit Provider Internal Medicine
DX: R11.2 Nausea with vomiting, unspecified (principal); R10.31 Right lower quadrant pain; K76.6 Portal hypertension; K21.9 Gastro-esophageal reflux disease without esophagitis; I73.9 Peripheral vascular disease, unspecified; E86.0 Dehydration; F17.210 Nicotine dependence, cigarettes, uncomplicated; K70.30 Alcoholic cirrhosis of liver without ascites; M19.90 Unspecified osteoarthritis, unspecified site; D61.818 Other pancytopenia; Z79.899 Other long term (current) drug therapy
CPT/HCPCS: 36415; 74177; 80053; 80307; 83605; 83690; 84484; 85025; 96361; 96365; 96366; 96375; 96376; 97802; 99218; 99285; J7030; Q9967; A4216; G0378; J2405; J3490

== ENCOUNTER 2021-01-29 01:20 | Inpatient (IN) | payer OTHER, SELFPAY ==
[2021-01-29] VITALS (13 sets, daily range): BP systolic 100–137; BP diastolic 50–85; PULSE 84–115; RESP 16–22; TEMP 35.4–37.3; O2SAT 95–100; BMI 26.4; BMI 26.3
[2021-01-29 01:56] LABS: Absolute Lymphocyte Count 2.27 X10^3/uL (0.83-4.51); Absolute Neutrophil Count 2.1 X10^3/uL (2.0-7.7); Basophil# 0.02 X10^3/uL; Basophil% 0.4 % (0-1); Eosinophil# 0.04 X10^3/uL; Eosinophils% 0.8 % (0-5); Hematocrit 39.1 % (40-54); Hemoglobin 13.5 g/dL (13.0-16.5); Lymphocyte # 2.27 X10^3/ul (0.83-4.51); Lymphocyte % 42.6 % (19-41); Mean Corp Hgb Conc 34.5 g/dL (32-36); Mean Corpuscular Hgb 31.4 pg (27.0-32.0); Mean Corpuscular Volume 90.9 fL (80-94); Monocyte# 0.91 X10^3/uL; Monocyte% 17.1 % (0-10); NRBC Flagged by Analyzer 0 % (0-5); Neutrophil # 2.08 X10^3/uL (2.7-7.7); Neutrophil % 38.9 % (47-70); POSITIVE COUNT YES; RBC Distribution Width CV 18.5 % (11.6-14.6); RBC Distribution Width SD 61.2 fl (35.1-43.9); White Blood Count 5.3 K/mm3 (4.4-11.0)
[2021-01-29] MEDS: Ondansetron 4 MG/2 ML Vial IV (01:57)
[2021-01-29] MEDS: 0.9% Normal Saline 1,000 ML 999 ML IV (01:57)
[2021-01-29 02:02] LABS: Differential Indicated SCAN CRITERIA MET
[2021-01-29 02:03] LABS: Platelet Count 46 K/mm3 (150-450)
[2021-01-29] MEDS: Octreotide 0.1 MG/ML ML IV (02:04)
[2021-01-29 02:05] LABS: AST(SGOT) 51 U/L (15-37); Alanine Aminotransfer ALT/SGPT 37 U/L (16-61); Albumin, Serum 2.6 g/dL (3.2-5.0); Alkaline Phosphatase 108 U/L (45-117); Anion Gap 9 (5-15); BUN 8 mg/dL (7-18); BUN/Creat Ratio 12.1 RATIO (10-20); Calcium,Total 8.6 mg/dL (8.5-10.1); Chloride 103 mmol/L (98-107); Creatinine, Serum 0.66 mg/dL (0.70-1.30); EST Glomerular Filtration Rate 131 mL/min (>60); Est Glom Filt Rate - Afr Amer 158 mL/min (>60); Estimated Creatinine Clearance 126.77 ml/min; Globulin 4.2 g/dL (2.2-4.2); Glucose 101 mg/dL (74-106); Lipase 264 U/L (73-393); Potassium 4.1 mmol/L (3.5-5.1); Protein, Total 6.8 g/dL (6.4-8.2); Sodium Level 140 mmol/L (136-145)
[2021-01-29 02:12] LABS: International Normalized Ratio 1.6; Prothrombin Time (Protime)PT. 18.4 SECONDS (11.7-14.9)
[2021-01-29 02:13] LABS: Partial Thromboplast Time 38.6 Seconds (24.1-36.2)
[2021-01-29 02:33] LABS: Lactic Acid 5.5 mmol/L (0.4-1.9)
--- NOTE | 2021-01-29 03:24 | RAD_ITS ---
STUDY: X-RAY CHEST REASON FOR EXAM: Male, 60 years old. chest pain TECHNIQUE: AP COMPARISON: 09/21/2020 FINDINGS: The lungs are clear and expanded. There is no demonstrated pleural abnormality. Normal size heart. Normal mediastinum and kelly. Normal visualized pulmonary arteries. Normal visualized aortic arch and descending thoracic aorta. Normal visualized thoracic spine. Normal visualized ribs, clavicles, and shoulders. There is no demonstrated abnormality of the visualized soft tissue structures of the upper abdomen. RAD/Chest 1 View (Portable) IMPRESSION: Nonacute portable x-ray examination of the chest. Electronically Signed: Byron Quiroz MD ([place]) at 8:23 EST , Service support ,
[2021-01-29] MEDS: Metoclopramide 10 MG/2 ML Vial IV (04:01)
--- NOTE | 2021-01-29 04:04 | PCM.HP.STD ---
HPI - General HPI Narrative JB ALARCON, is a 60 M who presents to the emergency room with acute nausea and vomiting. Onset began earlier this evening with significant hematemesis. He has a history of alcoholism and esophageal varices. Despite several antiemetics he continues to be nauseated. He denies recent heavy drinking. He has been seen in the hospital recently for a similar presentation. He denies shortness of breath or fever. He will be admitted for gastrointestinal bleeding from presumed esophageal varices and gastroenterology will be consulted. [facility] Medical History (Updated 01/29/21 @ 04:[address] Nahum Mckee, DO) Alcohol use Alcoholic cirrhosis Aortic aneurysm without rupture Arthritis Ascites Chronic anemia Chronic pain Cirrhosis Cirrhosis Cirrhosis Dehydration Diastolic dysfunction Esophageal varices in alcoholic cirrhosis Excessive bleeding Gastric reflux History of cirrhosis of liver History of esophageal varices History of GI bleed Hypotension Injury of head and neck Liver cirrhosis, alcoholic Marijuana use Near syncope Pancytopenia Peripheral arterial disease Smoker Thrombocytopenia Thrombocytopenia Varices of esophagus determined by endoscopy Walker as ambulation aid Wears glasses Home Medications ferrous sulfate [iron] 325 mg PO DAILY 03/20/18 [History Last Taken 03/11/20] magnesium oxide 400 mg PO DAILYCM 03/12/20 [History Last Taken 03/11/20] potassium chloride 10 meq PO BID 03/12/20 [History Last Taken 03/11/20] trazodone 100 mg PO QHS PRN 12/03/20 [History Last Taken Unknown] furosemide 20 mg PO DAILY 12/04/20 [History Last Taken Unknown] lactulose 10 g PO DAILY #473 ml 12/04/20 [Rx Last Taken Unknown] omeprazole 40 mg PO BID 12/04/20 [History Last Taken Unknown] spironolactone 50 mg PO BID 12/04/20 [History Last Taken Unknown] tramadol 50 mg tablet 50 mg PO Q6H PRN #20 tab 12/17/20 [Rx Last Taken Unknown] thiamine HCl (vitamin B1) 100 mg tablet 100 mg PO DAILY #30 tab 12/20/20 [Rx Last Taken Unknown] midodrine 10 mg PO TID 12/27/20 [History Last Taken 01/01/21 09:00] multivitamin 1 tab PO DAILY 12/27/20 [History Last Taken Unknown] meclizine 12.5 mg tablet 12.5 mg PO TID PRN #90 tab 01/25/21 [Rx Last Taken Unknown] ondansetron 4 mg disintegrating tablet 4 mg PO Q6H PRN 30 Days #120 tab 01/25/21 [Rx Last Taken Unknown] Allergy/AdvReac Type Severity Reaction Status Date / Time No Known Allergies Allergy Verified 01/29/21 01:21 Family History Mother Cancer Father Lupus Surgical History History of aortic aneurysm repair History of esophagogastroduodenoscopy (EGD) History of removal of cyst Social History household members: none Smoking Status: Current some day smoker tobacco type: cigarettes alcohol intake: current alcohol intake frequency: a few times a week substance use type: does not use ROS Constitutional Constitutional: Denies chills or fever(s) Eyes Eyes: Denies blurry vision ENT HEENT: Denies abnormal hearing Cardiovascular Cardiovascular: Denies chest pain Respiratory/Chest Respiratory/Chest: Denies shortness of breath at rest Gastrointestinal Gastrointestinal: Reports abdominal pain, hematemesis, nausea and vomiting Genitourinary Genitourinary: Denies dysuria Musculoskeletal Musculoskeletal: Denies back pain Neurologic Neurologic: Denies abnormal gait Psychiatric Psychiatric: Denies anxiety Vital Signs Vital Signs Vital Signs: 01/29/21 01:21 01/29/21 02:32 01/29/21 03:57 Temperature 95.8 F L Temperature Source Temporal Pulse Rate 95 109 H Respiratory Rate 22 H 22 H Blood Pressure 130/62 H 123/53 H 137/85 H Blood Pressure Mean 84 76 102 Pulse Ox 98 100 Oxygen Delivery Method Room Air Room Air Room Air Weight Weight: 189 lb 13.088 oz Body Mass Index (BMI) 26.4 Physical Exam Const oriented x3 Constitutional Narrative: in distress HEENT normocephalic Neck supple Resp normal respiratory effort, normal air movement and clear to auscultation bilaterally Cardio regular rate, regular rhythm, S1 normal heart sound and S2 normal heart sound GI GI Narrative: generalized Palpation: tender; Negative for guarding Extremity normal capillary refill Skin General Skin Exam: turgor normal Neuro CN's II-XII intact bilaterally Psych affect normal Results Lab / Micro Data Result Diagrams: 01/29/21 01:30 01/29/21 01:30 Labs: Laboratory Results - last 24 hr 01/29/21 01:30: WBC 5.3, RBC 4.30 L, Hgb 13.5, Hct 39.1 L, MCV 90.9, MCH 31.4, MCHC 34.5, RDW Std Deviation 61.2 H, RDW Coeff of Delilah 18.5 H, Plt Count 46 L*, MPV 10.0, Immature Gran % (Auto) 0.200, Neut % (Auto) 38.9 L, Lymph % (Auto) 42.6 H, [place] % (Auto) 17.1 H, Eos % (Auto) 0.8, Baso % (Auto) 0.4, Absolute Neuts (auto) 2.1, Absolute Lymphs (auto) 2.27, Nucleated RBC % 0, Diff Path Review June01/29/21 01:30: Sodium 140, Potassium 4.1, Chloride 103, Carbon Dioxide 28.0, Anion Gap 9, BUN 8, Creatinine 0.66 L, Estim Creat Clear Calc 126.77, Est GFR (MDRD) Af Amer 158, Est GFR (MDRD) Non-Af 131, BUN/Creatinine Ratio 12.1, Glucose 101, Calcium 8.6, Total Bilirubin 1.30 H, Direct Bilirubin 0.50 H, AST 51 H, ALT 37, Alkaline Phosphatase 108, Total Protein 6.8, Albumin 2.6 L, Globulin 4.2, Lipase 264 01/29/21 01:30: Lactic Acid 5.5 H* 01/29/21 01:30: Ethyl Alcohol 100.0 01/29/21 01:54: PT 18.4 H, INR 1.6, APTT 38.6 H Micro: Microbiology 01/29/21 01:46 Nasal Secretion SARS-CoV-2 Antigen (Rapid) - Final Assessment & Plan Assessment/Plan (1) Hematemesis: (2) Esophageal varices: (3) Thrombocytopenia: (4) History of alcohol abuse: (5) History of smoking: PLAN: 1. Gastrointestinal bleed- admit to medical surgical floor, NPO, consult Dr Sheldon, katey, regeileen and compazine as needed for severe nausea. Pt received octreotide, add PPI, monitor HH 2. thrombocytopenia- repeat cbc 3. DVT prophylaxis- SCDs Charges/Coding Visit Charges Inpatient E&M: 64026 Init Hosp L3
--- NOTE | 2021-01-29 04:09 | EDS_ITS ---
HPI History of Present Illness Chief Complaint: GI Bleed Narrative Narrative: Pt has a PMHX of etoh abuse and varicies. Pt states that he developed bouts of N/V today about 4-5 hours prior to arrival. He states that he continues to drink etoh and denies any other blood thinner use. Pt reports that this has happened in the past and he has needed admission and therefore presents for evaluation [facility] Medical History Alcohol use Alcoholic cirrhosis Aortic aneurysm without rupture Arthritis Ascites Chronic anemia Chronic pain Cirrhosis Cirrhosis Cirrhosis Dehydration Diastolic dysfunction Esophageal varices in alcoholic cirrhosis Excessive bleeding Gastric reflux History of cirrhosis of liver History of esophageal varices History of GI bleed Hypotension Injury of head and neck Liver cirrhosis, alcoholic Marijuana use Near syncope Pancytopenia Peripheral arterial disease Smoker Thrombocytopenia Thrombocytopenia Varices of esophagus determined by endoscopy Walker as ambulation aid Wears glasses Home Medications ferrous sulfate [iron] 325 mg PO DAILY 03/20/18 [History Last Taken 03/11/20] magnesium oxide 400 mg PO DAILYCM 03/12/20 [History Last Taken 03/11/20] potassium chloride 10 meq PO BID 03/12/20 [History Last Taken 03/11/20] trazodone 100 mg PO QHS PRN 12/03/20 [History Last Taken Unknown] furosemide 20 mg PO DAILY 12/04/20 [History Last Taken Unknown] lactulose 10 g PO DAILY #473 ml 12/04/20 [Rx Last Taken Unknown] omeprazole 40 mg PO BID 12/04/20 [History Last Taken Unknown] spironolactone 50 mg PO BID 12/04/20 [History Last Taken Unknown] tramadol 50 mg tablet 50 mg PO Q6H PRN #20 tab 12/17/20 [Rx Last Taken Unknown] thiamine HCl (vitamin B1) 100 mg tablet 100 mg PO DAILY #30 tab 12/20/20 [Rx Last Taken Unknown] midodrine 10 mg PO TID 12/27/20 [History Last Taken 01/01/21 09:00] multivitamin 1 tab PO DAILY 12/27/20 [History Last Taken Unknown] meclizine 12.5 mg tablet 12.5 mg PO TID PRN #90 tab 01/25/21 [Rx Last Taken Unknown] ondansetron 4 mg disintegrating tablet 4 mg PO Q6H PRN 30 Days #120 tab 01/25/21 [Rx Last Taken Unknown] Allergy/AdvReac Type Severity Reaction Status Date / Time No Known Allergies Allergy Verified 01/29/21 01:21 Family History Mother Cancer Father Lupus Surgical History History of aortic aneurysm repair History of esophagogastroduodenoscopy (EGD) History of removal of cyst Social History household members: none Smoking Status: Current some day smoker tobacco type: cigarettes alcohol intake: current alcohol intake frequency: a few times a week substance use type: does not use ROS ROS ED Constitutional Constitutional ED: Denies chills or fever(s) ENT ENT ED: Reports sore throat Cardiovascular Cardiovascular: Denies chest pain Respiratory/Chest Respiratory/Chest: Denies cough or dyspnea Gastrointestinal Gastrointestinal: Reports abdominal pain, hematemesis, nausea and vomiting; Denies diarrhea Genitourinary Genitourinary ED: Denies dysuria Musculoskeletal Musculoskeletal: Denies myalgias Integumentary Denies rash Neurologic Neurologic: Denies headache(s) Hematologic/Lymphatic Hematologic/Lymphatic: Denies easy bleeding or easy bruising EXAM Physical Exam Const Vital Signs: 01/29/21 01:21 01/29/21 02:32 01/29/21 03:57 Temperature 95.8 F L Temperature Source Temporal Pulse Rate 95 109 H Respiratory Rate 22 H 22 H Blood Pressure 130/62 H 123/53 H 137/85 H Blood Pressure Mean 84 76 102 Pulse Ox 98 100 Oxygen Delivery Method Room Air Room Air Room Air Positive well nourished and well developed General Appearance ED: well developed HEENT Reports moist mucous membranes HEENT Narrative: Pt has dark / coffee ground emesis secretions on his face and in the posterior pharynx Eyes PERRL and EOMs intact bilaterally Neck full ROM and supple Neck Narrative: no crepitance noted Chest Wall palpation of chest normal Resp normal respiratory effort and clear to auscultation bilaterally Cardio regular rate and regular rhythm GI non-distended GI Narrative: + diffuse pain with palpation Auscultation: hyperactive bowel sounds Palpation: soft Extremity normal to inspection Neuro oriented x3 and CN's II-XII intact bilaterally Sensorium / Orientation: alert Psych mental status grossly normal Skin no rashes or lesions noted MDM MDM MDM Narrative Medical decision making narrative: Pt presented with stable vitals but with PMHX and exam concering for GI bleed or bleeding varicies. Therefore he was started on protonix and octreatide. Blood work revealed chronic findings but no new/acute changes. However, based on his persistent symptoms and chronic medical conditions he will need to be admitted for continued care and monitoring Lab Data Attestation: I reviewed the patient's lab results. Labs: Laboratory Results - last 24 hr 01/29/21 01/29/21 01/29/21 01:30 01:30 01:30 WBC 5.3 RBC 4.30 L Hgb 13.5 Hct 39.1 L MCV 90.9 MCH 31.4 MCHC 34.5 RDW Std Deviation 61.2 H RDW Coeff of Delilah 18.5 H Plt Count 46 L* MPV 10.0 Immature Gran % (Auto) 0.200 Neut % (Auto) 38.9 L Lymph % (Auto) 42.6 H [place] % (Auto) 17.1 H Eos % (Auto) 0.8 Baso % (Auto) 0.4 Absolute Neuts (auto) 2.1 Absolute Lymphs (auto) 2.27 Nucleated RBC % 0 Diff Path Review May foll PT INR APTT Sodium 140 Potassium 4.1 Chloride 103 Carbon Dioxide 28.0 Anion Gap 9 BUN 8 Creatinine 0.66 L Estim Creat Clear Calc 126.77 Est GFR (MDRD) Af Amer 158 Est GFR (MDRD) Non-Af 131 BUN/Creatinine Ratio 12.1 Glucose 101 Lactic Acid 5.5 H* Calcium 8.6 Total Bilirubin 1.30 H Direct Bilirubin 0.50 H AST 51 H ALT 37 Alkaline Phosphatase 108 Total Protein 6.8 Albumin 2.6 L Globulin 4.2 Lipase 264 Ethyl Alcohol 01/29/21 01/29/21 01:30 01:54 WBC RBC Hgb Hct MCV MCH MCHC RDW Std Deviation RDW Coeff of Delilah Plt Count MPV Immature Gran % (Auto) Neut % (Auto) Lymph % (Auto) [place] % (Auto) Eos % (Auto) Baso % (Auto) Absolute Neuts (auto) Absolute Lymphs (auto) Nucleated RBC % Diff Path Review PT 18.4 H INR 1.6 APTT 38.6 H Sodium Potassium Chloride Carbon Dioxide Anion Gap BUN Creatinine Estim Creat Clear Calc Est GFR (MDRD) Af Amer Est GFR (MDRD) Non-Af BUN/Creatinine Ratio Glucose Lactic Acid Calcium Total Bilirubin Direct Bilirubin AST ALT Alkaline Phosphatase Total Protein Albumin Globulin Lipase Ethyl Alcohol 100.0 Discharge Plan Dx/Rx/DC Orders Clinical Impression: Hematemesis, Esophageal varices, Thrombocytopenia Disposition Disposition: Acute Care Hospital [facility]
--- NOTE | 2021-01-29 05:34 | NURSING ---
EMERGENCY PANDEMIC CHARTING
[2021-01-29 05:45] LABS: Reflex Lactate? Y
[2021-01-29] MEDS: proCHLORPERazine 10 MG/2 ML Vial 5 MG IV (05:59)
[2021-01-29] MEDS: 0.9% Normal Saline 1,000 ML 50 ML IV ×2 (06:03→15:07)
[2021-01-29] MEDS: HYDROmorphone 0.5 MG/0.5 ML SYRINGE IV (06:40)
--- NOTE | 2021-01-29 06:56 | NURSING ---
pt placed on 4lnc d/t pulse ox dropping after dialudid.
[2021-01-29 07:54] LABS: Absolute Lymphocyte Count 0.31 X10^3/uL (0.83-4.51); Absolute Neutrophil Count 3.6 X10^3/uL (2.0-7.7); Hematocrit 36.9 % (40-54); Hemoglobin 12.4 g/dL (13.0-16.5); Lymphocyte # 0.31 X10^3/ul (0.83-4.51); Lymphocyte % 6.9 % (19-41); Mean Corp Hgb Conc 33.6 g/dL (32-36); Mean Corpuscular Hgb 30.8 pg (27.0-32.0); Mean Corpuscular Volume 91.8 fL (80-94); Mean Platelet Vol. 10.6 fl (6.2-12.0); Monocyte# 0.54 X10^3/uL; NRBC Flagged by Analyzer 0 % (0-5); Neutrophil # 3.62 X10^3/uL (2.7-7.7); Neutrophil % 80.7 % (47-70); POSITIVE COUNT YES; POSITIVE DIFFERENTIAL YES; Platelet Count 30 K/mm3 (150-450); RBC Distribution Width CV 18.6 % (11.6-14.6); RBC Distribution Width SD 62.7 fl (35.1-43.9); Red Blood Count 4.02 M/mm3 (4.6-6.2); White Blood Count 4.5 K/mm3 (4.4-11.0)
[2021-01-29 07:57] LABS: Differential Indicated SCAN CRITERIA MET
[2021-01-29 08:26] LABS: Platelet Estimate MKD DEC (ADEQ)
[2021-01-29 08:32] LABS: ALB/GLOB Ratio 0.7 RATIO (0.9-2.4); AST(SGOT) 51 U/L (15-37); Alanine Aminotransfer ALT/SGPT 35 U/L (16-61); Albumin, Serum 2.6 g/dL (3.2-5.0); Alkaline Phosphatase 95 U/L (45-117); Anion Gap 11 (5-15); BUN 8 mg/dL (7-18); BUN/Creat Ratio 13.1 RATIO (10-20); Calcium,Total 8.2 mg/dL (8.5-10.1); Chloride 103 mmol/L (98-107); Creatinine, Serum 0.61 mg/dL (0.70-1.30); EST Glomerular Filtration Rate 143 mL/min (>60); Est Glom Filt Rate - Afr Amer 173 mL/min (>60); Estimated Creatinine Clearance 137.16 ml/min; Globulin 3.7 g/dL (2.2-4.2); Glucose 149 mg/dL (74-106); Potassium 3.9 mmol/L (3.5-5.1); Protein, Total 6.3 g/dL (6.4-8.2); Sodium Level 137 mmol/L (136-145)
[2021-01-29 08:41] LABS: Lactic Acid 3.8 mmol/L (0.4-1.9)
[2021-01-29 12:49] LABS: Hematocrit 34.4 % (40-54); Hemoglobin 11.7 g/dL (13.0-16.5)
[2021-01-29 13:17] LABS: Pathologist Review Reviewed
[2021-01-29 16:56] LABS: Hematocrit 33.1 % (40-54); Hemoglobin 11.1 g/dL (13.0-16.5); POSITIVE COUNT YES
--- NOTE | 2021-01-29 19:29 | EX.PCM.CON.G ---
HPI Consult Data Date of Consult: 01/29/21 HPI Narrative HPI Narrative: JB ALARCON, is a 60 M who presents to the ED with worsening nausea and vomiting. He has a history of alcoholic cirrhosis complicated by esophageal varices status post banding, ascites, alcoholic hepatitis and jaundice. Patient does admit to still drinking alcohol. He was recently seen in office for follow-up. At that time he also admitted to smoking marijuana. He does not take any NSAIDs. He had not been feeling well ever since [place]. He started getting progressively more nauseous and having multiple episodes of vomiting so he came into the ED for evaluation. [facility] Medical History Alcohol use Alcoholic cirrhosis Aortic aneurysm without rupture Arthritis Ascites Chronic anemia Chronic pain Cirrhosis Cirrhosis Cirrhosis Dehydration Diastolic dysfunction Esophageal varices in alcoholic cirrhosis Excessive bleeding Gastric reflux History of cirrhosis of liver History of esophageal varices History of GI bleed Hypotension Injury of head and neck Liver cirrhosis, alcoholic Marijuana use Near syncope Pancytopenia Peripheral arterial disease Smoker Thrombocytopenia Thrombocytopenia Varices of esophagus determined by endoscopy Walker as ambulation aid Wears glasses Home Medications ferrous sulfate [iron] 325 mg PO DAILY 03/20/18 [History Last Taken 03/11/20] magnesium oxide 400 mg PO DAILYCM 03/12/20 [History Last Taken 03/11/20] potassium chloride 10 meq PO BID 03/12/20 [History Last Taken 03/11/20] trazodone 100 mg PO QHS PRN 12/03/20 [History Last Taken Unknown] furosemide 20 mg PO DAILY 12/04/20 [History Last Taken Unknown] lactulose 10 g PO DAILY #473 ml 12/04/20 [Rx Last Taken Unknown] omeprazole 40 mg PO BID 12/04/20 [History Last Taken Unknown] spironolactone 50 mg PO BID 12/04/20 [History Last Taken Unknown] tramadol 50 mg tablet 50 mg PO Q6H PRN #20 tab 12/17/20 [Rx Last Taken Unknown] thiamine HCl (vitamin B1) 100 mg tablet 100 mg PO DAILY #30 tab 12/20/20 [Rx Last Taken Unknown] midodrine 10 mg PO TID 12/27/20 [History Last Taken 01/01/21 09:00] multivitamin 1 tab PO DAILY 12/27/20 [History Last Taken Unknown] meclizine 12.5 mg tablet 12.5 mg PO TID PRN #90 tab 01/25/21 [Rx Last Taken Unknown] ondansetron 4 mg disintegrating tablet 4 mg PO Q6H PRN 30 Days #120 tab 01/25/21 [Rx Last Taken Unknown] Allergy/AdvReac Type Severity Reaction Status Date / Time No Known Allergies Allergy Verified 01/29/21 01:21 Family History Mother Cancer Father Lupus Surgical History History of aortic aneurysm repair History of esophagogastroduodenoscopy (EGD) History of removal of cyst Social History household members: none Smoking Status: Current every day smoker tobacco type: cigarettes alcohol intake: current alcohol intake frequency: a few times a week substance use type: does not use ROS Review of Systems ROS Unobtainable: other Constitutional Constitutional: Denies fatigue, fever(s), poor appetite, weight gain or weight loss ENT HEENT: Denies mouth lesions Cardiovascular Cardiovascular: Denies abdominal bloating, abdominal edema or abdominal pain Respiratory/Chest Respiratory/Chest: Denies change in mental status, change in phlegm color, chest congestion or chest tightness Gastrointestinal Gastrointestinal: Denies belching, bloating, change in bowel habits, change in stool character, chewing difficulty, coffee ground emesis, constipation, cramping, diarrhea, dyspepsia, dysphagia, early satiety, excessive flatus, fecal incontinence, heartburn, hematemesis, hematochezia, hemorrhoids, loose stools, melena, nausea, odynophagia, rectal bleeding, tenesmus, vomiting or weight changes Genitourinary Genitourinary: Denies abdominal discomfort, burning urination or itching Musculoskeletal Musculoskeletal: Reports as per HPI; Denies muscle weakness or myalgias Integumentary Integumentary: Denies jaundice Neurologic Neurologic: Denies lack of coordination or weakness Psychiatric Psychiatric: Denies confusion, depression, memory loss, mood swings, paranoia or suicidal ideation Endocrine Endocrinology: Denies systems reviewed and no addt'l complaints, except as documented Hematologic/Lymphatic Hematologic/Lymphatic: Denies anemia, easy bleeding, easy bruising or lymphadenopathy Allergic/Immunologic Allergic/Immunologic: Denies systems reviewed and no addt'l complaints, except as documented Lab / Micro Data Result Diagrams: 01/29/21 16:27 01/29/21 07:40 Labs: Laboratory Results - last 24 hr 01/29/21 01:30: WBC 5.3, RBC 4.30 L, Hgb 13.5, Hct 39.1 L, MCV 90.9, MCH 31.4, MCHC 34.5, RDW Std Deviation 61.2 H, RDW Coeff of Delilah 18.5 H, Plt Count 46 L*, MPV 10.0, Immature Gran % (Auto) 0.200, Neut % (Auto) 38.9 L, Lymph % (Auto) 42.6 H, Wharton % (Auto) 17.1 H, Eos % (Auto) 0.8, Baso % (Auto) 0.4, Absolute Neuts (auto) 2.1, Absolute Lymphs (auto) 2.27, Nucleated RBC % 0, Diff Path Review Reviewed 01/29/21 01:30: Sodium 140, Potassium 4.1, Chloride 103, Carbon Dioxide 28.0, Anion Gap 9, BUN 8, Creatinine 0.66 L, Estim Creat Clear Calc 126.77, Est GFR (MDRD) Af Amer 158, Est GFR (MDRD) Non-Af 131, BUN/Creatinine Ratio 12.1, Glucose 101, Calcium 8.6, Total Bilirubin 1.30 H, Direct Bilirubin 0.50 H, AST 51 H, ALT 37, Alkaline Phosphatase 108, Total Protein 6.8, Albumin 2.6 L, Globulin 4.2, Lipase 264 01/29/21 01:30: Lactic Acid 5.5 H* 01/29/21 01:30: Ethyl Alcohol 100.0 01/29/21 01:54: PT 18.4 H, INR 1.6, APTT 38.6 H 01/29/21 07:40: WBC 4.5, RBC 4.02 L, Hgb 12.4 L, Hct 36.9 L, MCV 91.8, MCH 30.8, MCHC 33.6, RDW Std Deviation 62.7 H, RDW Coeff of Delilah 18.6 H, Plt Count 30 L*, MPV 10.6, Immature Gran % (Auto) 0.400, Neut % (Auto) 80.7 H, Lymph % (Auto) 6.9 L, Wharton % (Auto) 12.0 H, Eos % (Auto) 0.0, Baso % (Auto) 0.0, Absolute Neuts (auto) 3.6, Absolute Lymphs (auto) 0.31 L, Nucleated RBC % 0, Diff Path Review June, Platelet Estimate MKD 01/29/21 07:40: Sodium 137, Potassium 3.9, Chloride 103, Carbon Dioxide 23.0, Anion Gap 11, BUN 8, Creatinine 0.61 L, Estim Creat Clear Calc 137.16, Est GFR (MDRD) Af Amer 173, Est GFR (MDRD) Non-Af 143, BUN/Creatinine Ratio 13.1, Glucose 149 H, Calcium 8.2 L, Total Bilirubin 1.80 H, AST 51 H, ALT 35, Alkaline Phosphatase 95, Total Protein 6.3 L, Albumin 2.6 L, Globulin 3.7, Albumin/Globulin Ratio 0.7 L 01/29/21 07:40: Lactic Acid 3.8 H* 01/29/21 12:40: Hgb 11.7 L, Hct 34.4 L 01/29/21 16:27: Hgb 11.1 L, Hct 33.1 L Micro: Microbiology 01/29/21 01:46 Nasal Secretion SARS-CoV-2 Antigen (Rapid) - Final Radiology Impression Chest X-Ray 01/29/21 03:24 IMPRESSION: Nonacute portable x-ray examination of the chest. Electronically Signed: Byron Quiroz MD (Brooks) at 8:23 EST , Service support , Assessment & Plan Assessment/Plan (1) Esophageal varices: PLAN: Patient should undergo upper endoscopy for evaluation of the upper GI tract to see if he has any stigmata of bleeding. He will need to be n.p.o. past midnight. Continue Protonix as previously ordered. (2) Hematemesis: PLAN: Hematemesis possibly secondary to Danika-Jones tear, gastritis, esophageal variceal bleed. His hemoglobin seems to be stable at this time and is not currently nauseous. (3) Thrombocytopenia: PLAN: Thrombocytopenia secondary to portal hypertension (4) Cannabis hyperemesis syndrome concurrent with and due to cannabis abuse: PLAN: Patient says that he smokes cannabis to take away the nausea. I explained to him that in a cirrhotic patient marijuana not only increases the risk of hepatocellular carcinoma and also is not cleared very well from the liver and can lead to worsening nausea. Charges/Coding Visit Charges Inpatient E&M: 21223 Init Hosp L3
--- NOTE | 2021-01-29 20:27 | PN.HOSP_ITS ---
Hospitalist Note Patient was seen and examined today, his hemoglobin has not dropped significantly today, he has had no more episodes of hematemesis. I talked marika almarazly with gastroenterology and if the patient's hemoglobin remained stable, he will probably would not need endoscopy during his hospital stay.
[2021-01-29 21:13] LABS: Hematocrit 32.1 % (40-54); Hemoglobin 11.1 g/dL (13.0-16.5); POSITIVE COUNT YES
--- NOTE | 2021-01-29 22:56 | PCS.PANDOC ---
PANDEMIC DOCUMENTATION INITIATED: Date: 01/29/2021 Time: 526
[2021-01-30] VITALS (10 sets, daily range): BP systolic 104–136; BP diastolic 54–80; PULSE 59–96; RESP 16; TEMP 36.3–36.9; O2SAT 93–100; BMI 26.3
--- NOTE | 2021-01-30 10:05 | CASEMGMT ---
Social Work SW introduced self to pt, asked how he is doing. Pt here with abdominal pain. SW inquired pt what he's been told in regard to the abdominal pain and the cause, pt states he does not remember, but thinks it has something to do with his esophagus. SW explained came in to see pt in regard to his alcohol consumption. Pt states it is not an issue for him. Pt states he does not drink hard liquor anymore, and has 3-4 beers/week. Pt denies that drinking beer causes any issues in regard to his abdominal pain. Pt declined any referrals in regard to alcohol cessation resources. SW remains available for any additional social service needs. THIERNO Bustos
--- NOTE | 2021-01-30 10:36 | CASEMGMT ---
RN CM Assessment Introduced role of RN CM to patient. Patient is alert, oriented and able to participate in RN CM Assessment. Care providers, pharmacy, and demographics verified. Admit Dx: GIB Re-Admit: No. Multiple ER Visits in August and September. Inpatient 12/03-12/04/20 For Acute GIB, Obs admit 01/08-01/09/21 for intractable N/V. Barriers/Issues: Patient and both don't drive. Patient states barrier for transportation getting to doctor's appointments. Discussed [facility] transportation and other transportation options. Resources provided for all. States to retire soon and plan to apply for [employer]. States he is a Fall risk- received 2WW and scared at times with the wheels- discussed f/u with PCP for script for additional standard walker with no wheels, patient insurance provided current walker approx 4years ago. Patient drinks 3-4 beers/week and has been drinking for approximately 45yrs. Smokes tobacco x45yrs. Occasional Marijuana use to help with his nausea. PCP: Alice Cuellar Specialists: GI- Friend Preferred Pharmacy: [facility] Insurance: The Health Plan Rx Benefit: Yes LNOK: Madison Dillon LW/HPOA: None, declines offered information or completion on this admission. Aware can return as an outpatient to complete with social service department at a later time. Living Arrangements: Lives with in a [facility] apartment- elevator access. ADL?s: Ambulated with a single point cane or 2WW. Independent with ADL's except assists with medication management. Transportation: Niether patient or drive , transportation issue/barrier- see above note. Plan to utilize [facility] transport van upon DC. DME: Cane, walker HHC: None SNF: Past at [facility] Goal: Home and denies any additional needs. Aware RNCM will continue to follow should any needs arise. DC PLAN: Home with no anticipated needs identified at this time. KARINA Dietz
[2021-01-30 11:06] LABS: Pathologist Review Reviewed
[2021-01-30] MEDS: 0.9% Normal Saline 1,000 ML 50 ML IV ×2 (11:13→15:57)
--- NOTE | 2021-01-30 12:07 | OP.EGD_ITS ---
Patient Name: Keyon Dillon Procedure Date: 01/30/2021 11:34 AM Date of : 1960 Age: 60 Procedure: Upper GI endoscopy Indications: Epigastric abdominal pain Providers: Hugo Sheldon DO Medicines: See the Anesthesia note for documentation of the administered medications Patient Profile: This is a 60 year old male. Refer to note in patient chart for documentation of history and physical. Patient has symptoms of acute nausea and acute vomiting. Complications: No immediate complications. Procedure: Pre-Anesthesia Assessment: - Prior to the procedure, a History and Physical was performed, and patient medications and allergies were reviewed. The risks and benefits of the procedure and the sedation options and risks were discussed with the patient. All questions were answered and informed consent was obtained. Patient identification and proposed procedure were verified by the physician in the pre-procedure area. Mental Status Examination: alert and oriented. Airway Examination: normal oropharyngeal airway and neck mobility. Respiratory Examination: clear to auscultation. CV Examination: normal. Prophylactic Antibiotics: The patient does not require prophylactic antibiotics. Prior Anticoagulants: The patient has taken no previous anticoagulant or antiplatelet agents. ASA Grade Assessment: II - A patient with mild systemic disease. After reviewing the risks and benefits, the patient was deemed in satisfactory condition to undergo the procedure. The anesthesia plan was to use moderate sedation / analgesia (conscious sedation). Immediately prior to administration of medications, the patient was re-assessed for adequacy to receive sedatives. The heart rate, respiratory rate, oxygen saturations, blood pressure, adequacy of pulmonary ventilation, and response to care were monitored throughout the procedure. The physical status of the patient was re-assessed after the procedure. After obtaining informed consent, the endoscope was passed under direct vision. Throughout the procedure, the patient's blood pressure, pulse, and oxygen saturations were monitored continuously. The Endoscope was introduced through the and advanced to the. The gastroscope was introduced through the mouth, and advanced to the second part of duodenum. The upper GI endoscopy was accomplished without difficulty. The patient tolerated the procedure well. Moderate Sedation: Moderate (conscious) sedation was administered by the endoscopy nurse and supervised by the endoscopist. The patient's oxygen saturation, heart rate, blood pressure and response to care were monitored. Total physician intraservice time was 15 minutes. Scope In: 11:46:54 AM Scope Out: 11:55:49 AM Total Procedure Duration Time 0 hours 8 minutes 55 seconds Findings: Three columns of non-bleeding grade III varices were found in the lower third of the esophagus,. They were 5 mm in largest diameter. Stigmata of recent bleeding were evident and red suzanne signs were present. Scarring from prior treatment was visible. Three bands were successfully placed with incomplete eradication of varices. There was no bleeding during the procedure. Type 2 isolated gastric varices (IGV2, varices located in the body, antrum or around the pylorus) with no bleeding were found in the cardia and in the gastric body. There were no stigmata of recent bleeding. They were 5 mm in largest diameter. The second portion of the duodenum was normal. Impression: - Recently bleeding grade III esophageal varices. Incompletely eradicated. Banded. - Type 2 isolated gastric varices (IGV2, varices located in the body, antrum or around the pylorus), without bleeding. - Normal second portion of the duodenum. - No specimens collected. Recommendation: - Return patient to hospital afm for ongoing care. - Clear liquid diet today. - Continue present medications. - Return to my office in 2 weeks. Procedure Code(s): --- Professional --- 88712, 59, Esophagogastroduodenoscopy, flexible, transoral; with band ligation of esophageal/gastric varices G0500, Moderate sedation services provided by the same physician or other qualified health patient care technician instructor performing a gastrointestinal endoscopic service that sedation supports, requiring the presence of an independent trained observer to assist in the monitoring of the patient's level of consciousness and physiological status; initial 15 minutes of intra-service time; patient age 5 years or older (additional time may be reported with 79535, as appropriate) Diagnosis Code(s): --- Professional --- I85.01, Esophageal varices with bleeding I86.4, Gastric varices R10.13, Epigastric pain CPT copyright 2017 [employer]. All rights reserved. The codes documented in this report are preliminary and upon certified professional coder review may be revised to meet current compliance requirements. Hugo Sheldon DO 01/30/2021 12:06:50 PM This report has been signed electronically. Number of Addenda: 1 Note Initiated On: 01/30/2021 11:34 AM Addendum Number: 1 Addendum Date: 11/06/2021 6:57:27 AM MAC was used instead of moderate sedation for the patient. Hugo Sheldon, 11/06/2021 6:57:32 AM This report has been signed electronically.
[2021-01-30] MEDS: 0.9% Saline Lock 10 ML Syringe IV ×2 (13:09→17:56)
[2021-01-30] MEDS: Ondansetron 4 MG/2 ML Vial IV (13:12)
[2021-01-30] MEDS: HYDROmorphone 0.5 MG/0.5 ML SYRINGE IV (13:12)
--- NOTE | 2021-01-30 20:15 | PCM.PN.HOSP ---
Subjective Subjective Patient was seen and examined earlier today, his hemoglobin has remained stable. Patient had an EGD performed today, there is noted to be nonbleeding grade 3 varices in the lower third of the esophagus, bands were placed successfully with incomplete eradication of the varices. No bleeding during the procedure was noted to be present. There is also noted to be isolated gastric varices located in the stomach. No bleeding was found within the stomach however. There was no evidence of recent bleeding noted in the stomach. Objective Data Objective Data Vital Signs: Vital Signs Temp Pulse Resp BP Pulse Ox 97.9 F 74 16 129/59 H 94 01/30/21 13:15 01/30/21 13:15 01/30/21 13:15 01/30/21 13:15 01/30/21 13:15 Oxygen Flow Rate (L/min) 2 Oxygen Delivery Method Room Air Weight: 85.7 kg Body Mass Index (BMI) 26.3 Intake & Output: Intake and Output for Last 24 Hours 01/28/21 01/29/21 01/30/21 23:59 23:59 23:59 Intake Total 1883.50 / 1883.50 3340.33 / 3340.33 Output Total 600 / 600 Balance 1283.50 / 1283.50 3340.33 / 3340.33 Lab / Micro Data Result Diagrams: 01/29/21 20:40 01/29/21 07:40 Labs: Laboratory Results - last 24 hr 01/29/21 07:40: Diff Path Review Reviewed 01/29/21 20:40: Hgb 11.1 L, Hct 32.1 L Micro: Microbiology 01/29/21 01:46 Nasal Secretion SARS-CoV-2 Antigen (Rapid) - Final Physical Exam Const alert, oriented x3, no apparent distress and healthy appearing General Appearance: cooperative, well kempt and well developed Orientation / Consciousness: awake, oriented to person, oriented to place and oriented to time HEENT normocephalic and moist oral mucous membranes Head and Scalp: normocephalic Eyes PERRL, EOMs intact bilaterally and conjunctivae normal Neck nuchal rigidity, supple, no JVD, thyroid normal and no carotid bruits General: trachea midline Resp normal respiratory effort, no retractions, no use of accessory muscles and clear to auscultation bilaterally Auscultation: Negative for rales, rhonchi or wheezes Cardio regular rate, regular rhythm, S1 normal heart sound, S2 normal heart sound, no murmurs, no rub and no gallops GI normal to inspection, nondistended, normoactive bowel sounds, soft to palpation, non-tender and non-distended Extremity no clubbing, cyanosis or edema Skin no rashes or lesions noted General Skin Exam: no breakdown Neuro oriented x3, CN's II-XII intact bilaterally, no focal motor deficits and no sensory deficits noted Sensorium / Orientation: awake and alert Speech: speech normal Psych thought process normal and affect normal Assessment & Plan Assessment/Plan (1) Esophageal varices: PLAN: 1. Hematemesis secondary to esophageal varices from alcoholic liver disease-patient has no evidence of active bleeding at this time, he will be reevaluated tomorrow morning for possible discharge home #2 alcoholic liver disease #3 noncompliance with medical regimen-patient is still drinking at home, he states he drinks 5 beers a week, I cautioned that he should not be drinking at all #4 mild chronic anemia-patient does not appear to be actively bleeding and does not need a blood transfusion. #5 chronic alcoholism Charges/Coding Visit Charges Inpatient E&M: 43308 Subs Hosp L2
[2021-01-31 02:21] VITALS: BP 114/65; PULSE 81; RESP 18; TEMP 36.9; O2SAT 96
[2021-01-31 07:23] VITALS: O2SAT 96
[2021-01-31 08:20] VITALS: BP 117/68; PULSE 74; RESP 16; TEMP 36.7; O2SAT 97
--- NOTE | 2021-01-31 11:18 | PCM.DC ---
Discharge Instructions Diet Discharge Diet: No restrictions Activity Discharge Activity: Return to Normal Activity Weight Bearing Status: Full weight bearing Follow Up Care Test Results: Test results from this visit will be discussed in further detail at your follow-up appointment, if applicable. Discharge Plan Admission Admit Date/Time: 01/29/21 04:22 Primary Reason for Your Visit: hematemesis Attending Provider: Kendall Mcdaniels Primary Care Provider: Alice Cuellar Instructions Additional Instructions / Restrictions: Do not drink alcohol Discharge Orders/Prescriptions Prescriptions: Continued tramadol 50 mg tablet 50 mg PO Q6H PRN (Reason: pain) Qty: 20 RF: 0 ferrous sulfate [iron] 325 MG tablet 325 mg PO DAILY RF: 0 potassium chloride 10 MEQ tablet extended release 10 meq PO BID RF: 0 magnesium oxide 400 MG tablet 400 mg PO DAILYCM RF: 0 trazodone 100 mg Tablet 100 mg PO QHS PRN (Reason: sleep) RF: 0 lactulose 10 gram/15 mL solution 10 g PO DAILY Qty: 473 RF: 0 omeprazole 40 mg capsule,delayed release(DR/EC) 40 mg PO BID RF: 0 furosemide 20 mg tablet 20 mg PO DAILY RF: 0 spironolactone 50 mg tablet 50 mg PO BID RF: 0 multivitamin Tablet 1 tab PO DAILY RF: 0 midodrine 10 mg tablet 10 mg PO TID RF: 0 thiamine HCl (vitamin B1) [Vitamin B-1] 100 mg tablet 100 mg PO DAILY Qty: 30 RF: 2 meclizine 12.5 mg tablet 12.5 mg PO TID PRN (Reason: dizziness) Qty: 90 RF: 2 ondansetron 4 mg tablet,disintegrating 4 mg PO Q6H PRN (Reason: nausea and vomiting) 30 Days Qty: 120 RF: 0 Referrals / Follow Up: Alice Cuellar DO [Primary Care Provider] - Within 2 Weeks FriendHugo DO [STAFF PHYSICIAN] - See Referral Note (call for follow up appointment) Disposition Disposition (needs filled in before D/C Order can be placed): Home, Self Care
--- NOTE | 2021-01-31 11:27 | PCM.DC.SUM ---
Providers Date of Admission: 01/29/21 Date of Discharge: 01/31/21 Primary Care Physician: Dr. Alice Cuellar, Consultations 01/29/21 05:40 Consult: Gastroenterology Routine Consulting Provider: [facility] Reason for Consult: GIB EMERGENT Consult: Yes MD Notified: Yes Date Notified: 01/29/21 Time Notified: 04:26 Method of Notification: Text Reason For Visit: GASTROINTESTINAL BLEEDING Diagnosis Discharge Diagnosis (1) Esophageal varices: Status: Acute Code(s): I85.00 - Esophageal varices without bleeding Plan: 1. Hematemesis secondary to esophageal varices from alcoholic liver disease #2 alcoholic liver disease #3 noncompliance with medical regimen #4 mild chronic anemia-secondary to chronic GI blood loss from alcoholic liver disease #5 chronic alcoholism Medications at Discharge Home Medications ferrous sulfate [iron] 325 mg PO DAILY 03/20/18 magnesium oxide 400 mg PO DAILYCM 03/12/20 potassium chloride 10 meq PO BID 03/12/20 trazodone 100 mg PO QHS PRN 12/03/20 furosemide 20 mg PO DAILY 12/04/20 lactulose 10 g PO DAILY #473 ml 12/04/20 omeprazole 40 mg PO BID 12/04/20 spironolactone 50 mg PO BID 12/04/20 tramadol 50 mg tablet 50 mg PO Q6H PRN #20 tab 12/17/20 thiamine HCl (vitamin B1) 100 mg tablet 100 mg PO DAILY #30 tab 12/20/20 midodrine 10 mg PO TID 12/27/20 multivitamin 1 tab PO DAILY 12/27/20 meclizine 12.5 mg tablet 12.5 mg PO TID PRN #90 tab 01/25/21 ondansetron 4 mg disintegrating tablet 4 mg PO Q6H PRN 30 Days #120 tab 01/25/21 Hospital Course Operations None Procedures EGD (With banding of esophageal varices) Summary of Care Provided Minutes Spent on Discharge: 32 Hospital Course: This 60-year-old white male was seen in the emergency room at [facility] with a chief complaint of hematemesis, this was witnessed in the emergency room. Patient has a history of alcoholic liver disease and currently still drinks. Labs showed his hemoglobin to be 12.4, his platelet count was 30,000. Lactic acid was elevated but there is no evidence of sepsis. Patient was admitted to PCU, serial blood counts revealed that he was not actively bleeding and there was no need for blood transfusion. He was seen in consultation by GI services who performed an EGD and banded some nonbleeding esophageal varices. On 01/31/2021, patient was seen and examined: On examination he appeared older than his stated age. Vital signs as documented. Skin warm and dry and without overt rashes. Neck without JVD, neck was supple, trachea midline, thyroid was normal. Lungs clear bilaterally, normal air movement was noted. Heart exam notable for regular rhythm, normal sounds and absence of murmurs, rubs or gallops. Abdomen unremarkable and without evidence of organomegaly, masses, or abdominal aortic enlargement. Bowel sounds are present, abdomen is not distended. Extremities nonedematous, no cyanosis was noted, no clubbing was noted. Neuro: Cranial nerves II through XII are grossly intact, no focal motor deficits were noted, sensation to light touch and pinprick intact, motor exam 5/5 throughout. Psych: Patient is alert and oriented x3, he does not appear anxious or depressed, he does not appear agitated. Patient was discharged home on 01/31/2021 in stable condition, he was cautioned not to drink alcohol. Weight / BMI Weight Weight: 85.7 kg Body Mass Index (BMI) 26.3 ABG / Lab / Microbiology Data Result Diagrams: 01/29/21 20:40 01/29/21 07:40 Microbiology: Microbiology 01/29/21 01:46 Nasal Secretion SARS-CoV-2 Antigen (Rapid) - Final D/C Instructions Discharge Diet: No restrictions Weight Bearing Status: Full weight bearing Meaningful Use Info Meaningful Use Diagnoses (Choose all that apply): None applicable Discharge Plan Admission Admit Date/Time: 01/29/21 04:22 Primary Reason for Your Visit: hematemesis Attending Provider: Kendall Mcdaniels Primary Care Provider: Alice Cuellar Instructions Additional Instructions / Restrictions: Do not drink alcohol Discharge Orders/Prescriptions Prescriptions: Continued tramadol 50 mg tablet 50 mg PO Q6H PRN (Reason: pain) Qty: 20 RF: 0 ferrous sulfate [iron] 325 MG tablet 325 mg PO DAILY RF: 0 potassium chloride 10 MEQ tablet extended release 10 meq PO BID RF: 0 magnesium oxide 400 MG tablet 400 mg PO DAILYCM RF: 0 trazodone 100 mg Tablet 100 mg PO QHS PRN (Reason: sleep) RF: 0 lactulose 10 gram/15 mL solution 10 g PO DAILY Qty: 473 RF: 0 omeprazole 40 mg capsule,delayed release(DR/EC) 40 mg PO BID RF: 0 furosemide 20 mg tablet 20 mg PO DAILY RF: 0 spironolactone 50 mg tablet 50 mg PO BID RF: 0 multivitamin Tablet 1 tab PO DAILY RF: 0 midodrine 10 mg tablet 10 mg PO TID RF: 0 thiamine HCl (vitamin B1) [Vitamin B-1] 100 mg tablet 100 mg PO DAILY Qty: 30 RF: 2 meclizine 12.5 mg tablet 12.5 mg PO TID PRN (Reason: dizziness) Qty: 90 RF: 2 ondansetron 4 mg tablet,disintegrating 4 mg PO Q6H PRN (Reason: nausea and vomiting) 30 Days Qty: 120 RF: 0 Referrals / Follow Up: Alice Cuellar DO [Primary Care Provider] - Within 2 Weeks FriendHugo DO [STAFF PHYSICIAN] - See Referral Note (call for follow up appointment) Disposition Disposition (needs filled in before D/C Order can be placed): Home, Self Care Charges/Coding Visit Charges Inpatient E&M: 58377 Disch Hosp
== END 2021-01-31 12:12 | disposition home or self-care (01) | DRG 369 ==
LOC: ED 04:12 → PCU 05:10
PROVIDERS: Internal Medicine Gastroenterology; Admitting Provider Family Medicine; Emergency Provider Emergency Medicine; PCP Family Medicine; Visit Provider Internal Medicine
PROC: 06L38CZ Occlusion of Esophageal Vein with Extraluminal Device, Via Natural or Artificial Opening Endoscopic (ICD-10-PCS; principal; 2021-01-30 11:25)
DX: I85.00 Esophageal varices without bleeding (principal); K76.6 Portal hypertension; D61.818 Other pancytopenia; I86.4 Gastric varices; K70.31 Alcoholic cirrhosis of liver with ascites; F12.90 Cannabis use, unspecified, uncomplicated; D69.59 Other secondary thrombocytopenia; F17.210 Nicotine dependence, cigarettes, uncomplicated; Z91.14 Patient's other noncompliance with medication regimen; Z86.79 Personal history of other diseases of the circulatory system; F10.10 Alcohol abuse, uncomplicated; Y90.5 Blood alcohol level of 100-119 mg/100 ml
CPT/HCPCS: 36415; 71045; 80048; 80053; 80076; 82077; 83605; 83690; 85014; 85018; 85025; 85610; 85730; 87426; 99285; 99406; J7030; A4216; J2354; J2405; J3490

== ENCOUNTER 2021-04-10 21:38 | Emergency (ER) | payer MEDICARE, SELFPAY ==
[2021-04-10 21:39] VITALS: BP 148/70; PULSE 82; RESP 18; TEMP 37.1; O2SAT 100; BMI 26.9
--- NOTE | 2021-04-10 22:02 | EKG12_ITS ---
Test Reason : CP Blood Pressure : / mmHG Vent. Rate : 084 BPM Atrial Rate : 084 BPM P-R Int : 170 ms QRS Dur : 088 ms QT Int : 442 ms P-R-T Axes : 051 050 028 degrees QTc Int : 522 ms Normal sinus rhythm Prolonged QT Abnormal ECG Confirmed by AMANDA DAN, DEYANIRA ([id number]), publishing editor ANNABELLA TRIANA ([id number]) on 04/12/2021 10:38:22 AM Referred By: LAURA Confirmed By:DEYANIRA PATEL MD
--- NOTE | 2021-04-10 22:02 | CT_ITS ---
EXAM: CT ABDOMEN AND PELVIS WITH INTRAVENOUS CONTRAST : 1960 CLINICAL INDICATION: diffuse abd pain, n/v TECHNIQUE: Helically acquired images were obtained of the abdomen and pelvis with intravenous contrast. This CT exam was performed using one or more of the following dose reduction techniques: automated exposure control, adjustment of the mA and/or kV according to patient size, and/or use of iterative reconstruction technique. This report was created using [employer] report generation technology. CONTRAST: IV 100mL Isovue-370 COMPARISON: 01/08/21 FINDINGS: LOWER THORAX: Unremarkable. Lung bases are clear. No cardiomegaly. No significant pericardial effusion. ABDOMEN: LIVER: Mild nodular morphology of the hepatic surface. GALLBLADDER AND BILE DUCTS: Multiple small stones in the gallbladder. No gallbladder distention or wall edema. No intra- or extrahepatic biliary ductal dilation. PANCREAS: No inflammation around the pancreas. No focal cystic or solid mass. SPLEEN: Splenomegaly. ADRENALS: Unremarkable. No nodules. KIDNEYS AND URETERS: Unremarkable. Normal renal size and position. No hydronephrosis. STOMACH AND BOWEL: Unremarkable. No stomach or bowel distention. No focal inflammatory change. PELVIS: APPENDIX: The appendix is normal. BLADDER: Unremarkable. REPRODUCTIVE: Unremarkable as visualized. No mass. ABDOMEN and PELVIS: INTRAPERITONEAL SPACE: Moderate ascites. No free air. BONES/JOINTS: Unremarkable. No suspicious lytic or blastic abnormality. SOFT TISSUES: Unremarkable. No discrete abdominal or pelvic wall hernia. VASCULATURE: Enlarged portal vein. Recanalization of the umbilical vein with varices extending to the inferior epigastric vein. LYMPH NODES: Unremarkable. No enlarged lymph nodes. CT/Abdomen/Pelvis W IV Cont ONLY IMPRESSION: Cirrhotic changes of the liver with recanalization of the umbilical vein and splenomegaly consistent with portal hypertension. These findings are stable, but there has been development of moderate ascites since the previous exam. Individualized dose optimization techniques were used for this CT. at 2319 Reported and signed by: Denton Cortez MD Electronically Signed: Denton Cortez MD at 23:18 EST ,
--- NOTE | 2021-04-10 22:03 | ED.VIS.GI ---
HPI HPI - GI History of Present Illness Chief Complaint: Chest Pain Informant: patient Abdominal Pain/Flank Pain Onset: Today Context: - (started at 0830 this AM, about 13.5 hrs ago) Timing: Continuous Quality: Aching Location: Diffuse Current Severity: Moderate Maximum Severity: Moderate Worsened by: - (vomiting) Relieved by: Nothing Nausea/Vomiting/Emesis GI Symptom: Positive for Nausea and Vomiting Onset: Today Quality: Positive for Nonbilious Severity: Severe Diarrhea/Melena/Hematochezia GI Symptom: Negative for Diarrhea, Melena and Hematochezia Associated Symptoms Associated Symptoms: Negative for Dysuria, Frequency, Hematuria and Urgency Narrative Narrative: Patient states he woke up this morning and shortly thereafter started having nausea which was then followed by upper abdominal pain, this became more diffuse and he started vomiting which progressed throughout the day, he started developing chest tightness after the vomiting across his chest. No dyspnea although he states occasionally he feels like he needs to take a deep breath and gasp. Has history of alcoholic cirrhosis. Has seen GI in the past, they recommended that he consider a transplant but he still drinks. He states he had some alcohol yesterday. He usually has a couple of day, he states I do not drink like I used to. He has chronic back pain does not feel like this pain radiates into his back. Feels very malaised. Denies any fevers or chills. Has a chronic cough that is unchanged and nonproductive. He denies any hematemesis or coffee-ground emesis. [facility] Medical History Alcohol use Alcoholic cirrhosis Aortic aneurysm without rupture Arthritis Ascites Cannabis hyperemesis syndrome concurrent with and due to cannabis abuse Chronic anemia Chronic pain Cirrhosis Cirrhosis Cirrhosis Dehydration Diastolic dysfunction Esophageal varices in alcoholic cirrhosis Excessive bleeding Gastric reflux History of cirrhosis of liver History of esophageal varices History of GI bleed Hypotension Injury of head and neck Liver cirrhosis, alcoholic Marijuana use Near syncope Pancytopenia Peripheral arterial disease Smoker Thrombocytopenia Thrombocytopenia Varices of esophagus determined by endoscopy Walker as ambulation aid Wears glasses Home Medications ferrous sulfate [iron] 325 mg PO DAILY 03/20/18 [History Last Taken 03/11/20] magnesium oxide 400 mg PO DAILYCM 03/12/20 [History Last Taken 03/11/20] potassium chloride 10 meq PO BID 03/12/20 [History Last Taken 03/11/20] trazodone 100 mg PO QHS PRN 12/03/20 [History Last Taken Unknown] furosemide 20 mg PO DAILY 12/04/20 [History Last Taken Unknown] lactulose 10 g PO DAILY #473 ml 12/04/20 [Rx Last Taken Unknown] spironolactone 50 mg PO BID 12/04/20 [History Last Taken Unknown] tramadol 50 mg tablet 50 mg PO Q6H PRN #20 tab 12/17/20 [Rx Last Taken Unknown] thiamine HCl (vitamin B1) 100 mg tablet 100 mg PO DAILY #30 tab 12/20/20 [Rx Last Taken Unknown] midodrine 10 mg PO TID 12/27/20 [History Last Taken 01/01/21 09:00] multivitamin 1 tab PO DAILY 12/27/20 [History Last Taken Unknown] meclizine 12.5 mg tablet 12.5 mg PO TID PRN #90 tab 01/25/21 [Rx Last Taken Unknown] omeprazole 40 mg capsule,delayed release 40 mg PO BID #28 cap 03/28/21 [Rx Last Taken Unknown] promethazine 25 mg PO Q6H PRN PRN #12 tablet 04/11/21 [Rx Last Taken Unknown] Allergy/AdvReac Type Severity Reaction Status Date / Time No Known Allergies Allergy Verified 04/10/21 21:45 Family History Mother Cancer Father Lupus Surgical History History of aortic aneurysm repair History of esophagogastroduodenoscopy (EGD) History of removal of cyst Social History household members: none Smoking Status: Current every day smoker tobacco type: cigarettes alcohol intake: current alcohol intake frequency: a few times a week substance use type: does not use ROS ROS ED Constitutional Constitutional ED: Reports malaise; Denies chills or fever(s) Eyes Eyes: Denies change in vision or diplopia ENT ENT ED: Denies rhinorrhea or sore throat Cardiovascular Cardiovascular: Reports as per HPI and chest pain; Denies palpitations Respiratory/Chest Respiratory/Chest: Reports cough; Denies dyspnea Gastrointestinal Gastrointestinal: Reports abdominal pain, nausea and vomiting; Denies diarrhea Genitourinary Genitourinary ED: Denies dysuria or hematuria Musculoskeletal Musculoskeletal: Reports back pain; Denies neck pain Integumentary Denies abscess or rash Neurologic Neurologic: Denies headache(s), paresthesias or weakness Psychiatric Psychiatric: Denies anxiety or suicidal thoughts EXAM Physical Exam Const Vital Signs: 04/10/21 21:39 04/10/21 21:42 04/10/21 23:39 Temperature 98.8 F Temperature Source Temporal Pulse Rate 82 93 Respiratory Rate 18 15 Respiratory Effort Normal Non-Labored Respiratory Pattern Normal Blood Pressure 148/70 H 141/65 H Blood Pressure Mean 96 90 Pulse Ox 100 98 Oxygen Delivery Method Room Air Room Air Positive well nourished and well developed General Appearance ED: well developed and NAD HEENT Reports moist mucous membranes normocephalic and atraumatic Eyes PERRL and EOMs intact bilaterally Neck full ROM and supple Resp normal respiratory effort and clear to auscultation bilaterally Cardio regular rate, regular rhythm and no murmurs GI GI Narrative: Mildly distended with fluid wave, not firm. Diffusely tender. No rebound tenderness. Auscultation: normoactive bowel sounds Palpation: soft Back/Spine no CVA tenderness General Back: other FROM Extremity normal to inspection, no calf tenderness and no pedal edema General Extremety ED: Negative for edema, pulses abnormal or tenderness General Extremity: Negative for edema or pulses abnormal Neuro oriented x3, CN's II-XII intact bilaterally and no sensory deficits noted Sensorium / Orientation: awake and alert Motor Exam: strength 5/5 throughout Skin no rashes or lesions noted and no wounds MDM MDM MDM Narrative Medical decision making narrative: Patient's work-up is consistent with cirrhosis, there is no other acute abnormality on ancillaries or imaging. He was treated with IV Reglan and a liter of IV fluid along with some morphine for his pain. His lipase is not elevated. Pain is better after morphine, his nausea is improved after Reglan, avoiding Zofran since he has a very mildly prolonged QTC at this time, he is asking for something more for nausea he has had no vomiting in the emergency department so far. We will give him oral Phenergan since IV promethazine is not available at this hospital, followed by p.o. challenge and discharge if he is doing better with a prescription for promethazine and outpatient follow-up. Lab Data Attestation: I reviewed the patient's lab results. Labs: Laboratory Results - last 24 hr 04/10/21 04/10/21 04/10/21 21:42 21:42 23:43 WBC 3.2 L RBC 3.87 L Hgb 13.1 Hct 35.9 L MCV 92.8 MCH 33.9 H MCHC 36.5 H RDW Std Deviation 53.1 H RDW Coeff of Delilah 15.6 H Plt Count 36 L* MPV 10.0 Immature Gran % (Auto) 0.300 Neut % (Auto) 78.1 H Lymph % (Auto) 13.0 L [place]ander % (Auto) 8.6 Eos % (Auto) 0.0 Baso % (Auto) 0.0 Absolute Neuts (auto) 2.5 Absolute Lymphs (auto) 0.41 L Nucleated RBC % 0 Differential Comment SCANNED Diff Path Review May foll Sodium 138 Potassium 3.5 Chloride 105 Carbon Dioxide 24.0 Anion Gap 9 BUN 4 L Creatinine 0.75 Estim Creat Clear Calc 111.56 Est GFR (MDRD) Af Amer 137 Est GFR (MDRD) Non-Af 114 BUN/Creatinine Ratio 5.4 L Glucose 157 H Calcium 7.7 L Total Bilirubin 1.60 H AST 61 H ALT 35 Alkaline Phosphatase 129 H Troponin I High Sens 12 Total Protein 6.8 Albumin 2.7 L Globulin 4.1 Albumin/Globulin Ratio 0.7 L Lipase 115 Urine Color Yellow Urine Clarity Clear Urine pH 7.0 Ur Specific [place] 1.005 Urine Protein 15 H Urine Glucose (UA) Normal Urine Ketones Negative Urine Occult Blood Negative Urine Nitrite Negative Urine Bilirubin Negative Urine Urobilinogen Normal Ur Leukocyte Esterase 25 H Radiography Diagnostic Testing: Clinical Impression(s) from Imaging Studies Abdomen/Pelvis CT 04/10/21 22:02 IMPRESSION: Cirrhotic changes of the liver with recanalization of the umbilical vein and splenomegaly consistent with portal hypertension. These findings are stable, but there has been development of moderate ascites since the previous exam. Individualized dose optimization techniques were used for this CT. at 2729 Reported and signed by: Denton Cortez MD Electronically Signed: Denton Cortez MD at 23:18 EST , Chest X-Ray 04/10/21 22:30 IMPRESSION: Concern for mild peripheral groundglass airspace disease. Cannot exclude pneumonia. CT could further evaluate as clinically indicated. at 2350 Reported and signed by: Roverto Rojo MD Electronically Signed: Roverto Rojo MD at 23:49 EST , EKG Initial EKG: Attestation: I personally reviewed and interpreted this EKG as follows: Interpretation: Sinus Rhythm and No Acute Injury Pattern Comments: nml axis. long QTc. Prior EKG tracings: available for review Prior: Unchanged (except for long QTc) Discharge Plan Triage Chief Complaint: Chest Pain ED Provider: Bruce Estrada Dx/Rx/DC Orders Clinical Impression: Acute alcoholic gastritis, Cirrhosis Instructions: ED Gastritis (Adult) Prescriptions: New promethazine [promethazine] 25 MG tablet 25 mg PO Q6H PRN PRN (Reason: Nausea) Qty: 12 RF: 0 No Action tramadol 50 mg tablet 50 mg PO Q6H PRN (Reason: pain) Qty: 20 RF: 0 ferrous sulfate [iron] 325 MG tablet 325 mg PO DAILY RF: 0 potassium chloride 10 MEQ tablet extended release 10 meq PO BID RF: 0 magnesium oxide 400 MG tablet 400 mg PO DAILYCM RF: 0 trazodone 100 mg Tablet 100 mg PO QHS PRN (Reason: sleep) RF: 0 lactulose 10 gram/15 mL solution 10 g PO DAILY Qty: 473 RF: 0 furosemide 20 mg tablet 20 mg PO DAILY RF: 0 spironolactone 50 mg tablet 50 mg PO BID RF: 0 multivitamin Tablet 1 tab PO DAILY RF: 0 midodrine 10 mg tablet 10 mg PO TID RF: 0 thiamine HCl (vitamin B1) [Vitamin B-1] 100 mg tablet 100 mg PO DAILY Qty: 30 RF: 2 meclizine 12.5 mg tablet 12.5 mg PO TID PRN (Reason: dizziness) Qty: 90 RF: 2 omeprazole 40 mg capsule,delayed release(DR/EC) 40 mg PO BID Qty: 28 RF: 0 Primary Care Provider: Alice Cuellar Referrals: Alice Cuellar, [Primary Care Provider] - 1-2 Days if not improving (or Friend, or ER if unable to keep fluids down) Disposition Disposition: Home, Self Care
[2021-04-10 22:10] LABS: Absolute Lymphocyte Count 0.41 X10^3/uL (0.83-4.51); Absolute Neutrophil Count 2.5 X10^3/uL (2.0-7.7); Hematocrit 35.9 % (40-54); Hemoglobin 13.1 g/dL (13.0-16.5); Lymphocyte # 0.41 X10^3/ul (0.83-4.51); Mean Corp Hgb Conc 36.5 g/dL (32-36); Mean Corpuscular Hgb 33.9 pg (27.0-32.0); Mean Corpuscular Volume 92.8 fL (80-94); Monocyte# 0.27 X10^3/uL; Monocyte% 8.6 % (0-10); NRBC Flagged by Analyzer 0 % (0-5); Neutrophil # 2.46 X10^3/uL (2.7-7.7); Neutrophil % 78.1 % (47-70); POSITIVE COUNT YES; POSITIVE DIFFERENTIAL YES; RBC Distribution Width CV 15.6 % (11.6-14.6); RBC Distribution Width SD 53.1 fl (35.1-43.9); Red Blood Count 3.87 M/mm3 (4.6-6.2); White Blood Count 3.2 K/mm3 (4.4-11.0)
[2021-04-10] MEDS: Morphine 4 MG/ML Syringe IV (22:10)
[2021-04-10] MEDS: 0.9% Normal Saline 1,000 ML 1000 ML IV (22:10)
[2021-04-10] MEDS: Ondansetron 4 MG/2 ML Vial IV (22:10)
[2021-04-10] MEDS: Metoclopramide 10 MG/2 ML Vial IV (22:14)
[2021-04-10 22:21] LABS: ALB/GLOB Ratio 0.7 RATIO (0.9-2.4); AST(SGOT) 61 U/L (15-37); Alanine Aminotransfer ALT/SGPT 35 U/L (16-61); Albumin, Serum 2.7 g/dL (3.2-5.0); Alkaline Phosphatase 129 U/L (45-117); Anion Gap 9 (5-15); BUN 4 mg/dL (7-18); BUN/Creat Ratio 5.4 RATIO (10-20); Calcium,Total 7.7 mg/dL (8.5-10.1); Chloride 105 mmol/L (98-107); Creatinine, Serum 0.75 mg/dL (0.70-1.30); EST Glomerular Filtration Rate 114 mL/min (>60); Est Glom Filt Rate - Afr Amer 137 mL/min (>60); Estimated Creatinine Clearance 111.56 ml/min; Globulin 4.1 g/dL (2.2-4.2); Glucose 157 mg/dL (74-106); Lipase 115 U/L (73-393); Potassium 3.5 mmol/L (3.5-5.1); Protein, Total 6.8 g/dL (6.4-8.2); Sodium Level 138 mmol/L (136-145); Troponin-I HS 12 pg/mL (3.0-78.0)
[2021-04-10 22:22] LABS: Differential Indicated SCAN CRITERIA MET
[2021-04-10 22:23] LABS: Platelet Count 36 K/mm3 (150-450)
--- NOTE | 2021-04-10 22:30 | RAD_ITS ---
HISTORY: chest pain EXAMINATION/TECHNIQUE: XR Chest 1 View: COMPARISON: January 29, 2021 FINDINGS: LINES/DEVICES: None. LUNGS: Subtle increased patchy hazy opacification in the lung peripheries. Unremarkable interstitium. No effusion. No pneumothorax. MEDIASTINUM: No cardiomegaly. MUSCULOSKELETAL: No acute osseous finding. RAD/Chest 1 View (Portable) IMPRESSION: Concern for mild peripheral groundglass airspace disease. Cannot exclude pneumonia. CT could further evaluate as clinically indicated. at 2350 Reported and signed by: Roverto Rojo MD Electronically Signed: Roverto Rojo MD at 23:49 EST ,
[2021-04-10 22:50] LABS: Differential Comment SCANNED
[2021-04-10 23:39] VITALS: BP 141/65; PULSE 93; RESP 15; O2SAT 98
[2021-04-10 23:47] LABS: Bacteria 0 SEEN /hpf (None Seen); Mucous, Urine 0 SEEN /hpf (<or=2+); Red Blood Cells-Urine 0 SEEN /hpf (0-5); White Blood Cells 0 SEEN /hpf (0-5)
[2021-04-10 23:48] LABS: Glucose, Dipstick Normal (Normal); Ketone-Dipstick Negative (Negative); Leukocyte Esterase-Dipstick 25 /ul (Negative); Nitrite-Dipstick Negative (Negative); Occult Blood-Urine Negative /ul (Negative); Protein-Dipstick 15 mg/dl (Negative); Specific Gravity, Urine 1.005 (1.002-1.030); Urine Bilirubin Dipstick Negative (Negative); Urine Urobilinogen Normal (Normal)
[2021-04-10 23:51] LABS: Color, Urine Yellow (Yellow); Urine Clarity Clear (Clear)
[2021-04-11] VITALS: BP 152/75; PULSE 69; RESP 15; O2SAT 97
[2021-04-11] MEDS: proMETHazine 25 MG Tablet PO (00:07)
[2021-04-11 00:08] LABS: Squamous Epithelial Cells - UA 5-10 SEEN /hpf (0-5)
[2021-04-11 15:20] LABS: Pathologist Review Reviewed
== END 2021-04-11 01:18 | disposition home or self-care (01) ==
PROVIDERS: Emergency Provider Emergency Medicine; PCP Family Medicine; Visit Provider Emergency Medicine
DX: K29.20 Alcoholic gastritis without bleeding (principal); K74.60 Unspecified cirrhosis of liver; G89.29 Other chronic pain; M54.9 Dorsalgia, unspecified; F17.210 Nicotine dependence, cigarettes, uncomplicated; R05.3 Chronic cough
CPT/HCPCS: 71045; 74177; 80053; 81001; 83690; 84484; 85025; 93005; 99284; J7030; Q9967; A4216; J2405

== ENCOUNTER 2021-04-15 03:48 | Observation (INO) | payer MEDICARE, SELFPAY ==
[2021-04-15] VITALS (8 sets, daily range): BP systolic 111–138; BP diastolic 54–81; PULSE 75–88; RESP 16–18; TEMP 36.1–36.9; O2SAT 96–98; BMI 28.5; BMI 27.6
--- NOTE | 2021-04-15 04:01 | EKG12_ITS ---
Test Reason : DYSRYTHMIA Blood Pressure : / mmHG Vent. Rate : 081 BPM Atrial Rate : 081 BPM P-R Int : 174 ms QRS Dur : 090 ms QT Int : 424 ms P-R-T Axes : 079 062 071 degrees QTc Int : 492 ms Normal sinus rhythm Prolonged QT Abnormal ECG Confirmed by AMANDA DAN, DEYANIRA ([id number]), news videotape editor ANNABELLA TRIANA ([id number]) on 04/16/2021 12:56:53 PM Referred By: RAH Confirmed By:DEYANIRA PATEL MD
[2021-04-15] MEDS: DiphenhydrAMINE 50 MG/ML Syringe 25 MG IV (04:13)
[2021-04-15] MEDS: Metoclopramide 10 MG/2 ML Vial 5 MG IV (04:14)
--- NOTE | 2021-04-15 04:17 | EDS_ITS ---
HPI History of Present Illness Chief Complaint: Nausea/Vomiting Informant: patient Narrative Narrative: Patient complains of nausea and vomiting. He was seen here couple days ago. He was feeling better and went home. But it symptoms of come back. He states he is not drinking much alcohol anymore but he did have one beer today and eat one hot dog. He has diarrhea all the time because he is on lactulose but there is been no change in this. No blood seen in the stool. He has vomited some bilious type material. But no blood or black. He states he is has a lot more dry heaves. He has diffuse abdominal discomfort that is more than his baseline. He has not had any fevers or chills. He states he has never had paracentesis in the past. His abdomen is distended but it is always a bit distended. He does not think it is really changed much. No chest pain no trouble breathing. Patient also states he only tries a little bit of marijuana now and then. If it does not help his nausea he does not smoke it anymore. He has Zofran at home but does not feel that it helps. He got Reglan here the other day and felt that that helped him a lot more. [facility] Medical History (Updated 04/15/21 @ 06:[address] Mariano Hollins MD) Alcohol use Alcoholic cirrhosis Aortic aneurysm without rupture Arthritis Ascites Cannabis hyperemesis syndrome concurrent with and due to cannabis abuse Chronic anemia Chronic pain Cirrhosis Cirrhosis Cirrhosis Dehydration Diastolic dysfunction Esophageal varices in alcoholic cirrhosis Excessive bleeding Gastric reflux History of cirrhosis of liver History of esophageal varices History of GI bleed Hypotension Injury of head and neck Liver cirrhosis, alcoholic Marijuana use Near syncope Pancytopenia Peripheral arterial disease Smoker Thrombocytopenia Thrombocytopenia Varices of esophagus determined by endoscopy Walker as ambulation aid Wears glasses Home Medications ferrous sulfate [iron] 325 mg PO DAILY 03/20/18 [History Last Taken 03/11/20] magnesium oxide 400 mg PO DAILYCM 03/12/20 [History Last Taken 03/11/20] potassium chloride 10 meq PO BID 03/12/20 [History Last Taken 03/11/20] trazodone 100 mg PO QHS PRN 12/03/20 [History Last Taken Unknown] furosemide 20 mg PO DAILY 12/04/20 [History Last Taken Unknown] lactulose 10 g PO DAILY #473 ml 12/04/20 [Rx Last Taken Unknown] spironolactone 50 mg PO BID 12/04/20 [History Last Taken Unknown] tramadol 50 mg tablet 50 mg PO Q6H PRN #20 tab 12/17/20 [Rx Last Taken Unknown] thiamine HCl (vitamin B1) 100 mg tablet 100 mg PO DAILY #30 tab 12/20/20 [Rx Last Taken Unknown] midodrine 10 mg PO TID 12/27/20 [History Last Taken 01/01/21 09:00] multivitamin 1 tab PO DAILY 12/27/20 [History Last Taken Unknown] meclizine 12.5 mg tablet 12.5 mg PO TID PRN #90 tab 01/25/21 [Rx Last Taken Unknown] omeprazole 40 mg capsule,delayed release 40 mg PO BID #28 cap 03/28/21 [Rx Last Taken Unknown] promethazine 25 mg PO Q6H PRN PRN #12 tablet 04/11/21 [Rx Last Taken Unknown] Allergy/AdvReac Type Severity Reaction Status Date / Time No Known Allergies Allergy Verified 04/15/21 03:49 Family History Mother Cancer Father Lupus Surgical History (Updated 04/15/21 @ 06:[address] Antonella Tariq MD) History of esophagogastroduodenoscopy (EGD) History of removal of cyst Social History household members: none Smoking Status: Current every day smoker tobacco type: cigarettes alcohol intake: current alcohol intake frequency: a few times a week substance use type: does not use ROS ROS ED Constitutional Constitutional ED: Denies chills, fever(s) or subjective Eyes Eyes: Denies blurry vision ENT ENT ED: Denies rhinorrhea or sore throat Cardiovascular Cardiovascular: Denies chest pain, palpitations or racing heartbeat Respiratory/Chest Respiratory/Chest: Denies cough or dyspnea Gastrointestinal Gastrointestinal: Reports abdominal pain, diarrhea, nausea and vomiting; Denies constipation or melena Genitourinary Genitourinary ED: Denies dysuria Musculoskeletal Musculoskeletal: Denies back pain Integumentary Denies rash Neurologic Neurologic: Denies headache(s) Psychiatric Psychiatric: Reports anxiety and depression Endocrine Endocrinology: Denies polydipsia or polyuria Hematologic/Lymphatic Hematologic/Lymphatic: Denies easy bleeding or easy bruising Allergic/Immunologic Allergic/Immunologic ED: Denies urticaria EXAM Physical Exam Const Vital Signs: 04/15/21 03:52 04/15/21 06:18 Temperature 98.4 F Temperature Source Oral Pulse Rate 83 86 Respiratory Rate 16 16 Blood Pressure 137/81 H 138/64 H Blood Pressure Mean 99 88 Pulse Ox 97 Oxygen Delivery Method Room Air Positive well nourished and well developed General Appearance ED: well developed and NAD HEENT atraumatic Eyes EOMs intact bilaterally Chest Wall inspection of chest normal Resp normal respiratory effort Cardio regular rhythm Rate: regular rate GI no masses GI Narrative: Abdomen does look a bit distended. He has well-healed surgical scars from his aortic aneurysm repair. Of note he was just CAT scan about 2 days ago. He has mild tenderness but nothing focal. He also does not have rebound or guarding. This does not appear to be consistent with spontaneous bacterial peritonitis. Auscultation: normoactive bowel sounds Palpation: soft; Negative for guarding Back/Spine normal to inspection Extremity normal to inspection Extremity Narrative: Chronic stasis changes in both lower extremities. Neuro oriented x3 Neuro Narrative: He is not confused or hallucinating. Sensorium / Orientation: alert Psych mental status grossly normal Skin no rashes or lesions noted MDM MDM MDM Narrative Medical decision making narrative: Patient has abnormal lab but also many of these are chronic. Mild anemia, leukopenia and thrombocytopenia which she has had in the past. Electrolytes showed no marked abnormalities. Glucose was 125. Liver function test show minimal elevation of AST. Lipase is 361. Alcohol level is mildly elevated at 63. INR is 1.5 which is near his baseline. Minimal elevation of lactic acid at 2.1. Abdominal series shows no acute process. I reviewed the CT that was done about 5 days ago. There is no indication of AAA or AAA repair. I then brought up old CTs of the chest and I did not see any indication of aneurysm. I talked to the patient about this. He states about 8 years ago he was life flighted up to [facility] for what he thought was an aneurysm. I did find a operative report of a endoscopy that showed brisk bleeding in the fundus of the stomach that was immediately followed by [facility] him to tertiary care. I think this patient had gastric bleeding and surgery to repair this but did not have a history of a AAA. Patient is still having nausea and dry heaves. I have tried Reglan that helped the other day. Were trying Phenergan. He takes Zofran at home and tolerated so I may try a dose of that here. If we can get him better with his recurrent visits and continuing symptoms we may need to put him in the hospital. We have tried IV fluids, Benadryl, Reglan, Zofran, Phenergan and pantoprazole. Patient still having dry heaves and occasional small amounts of bilious vomiting. No blood. No blood by history. X-ray shows no acute process. Blood work is really about at his baseline. There is a minimal bump in his lactate above normal but he has had this higher before. No drop in hemoglobin. My concern is that with continued retching he may end up causing esophageal varices bleeding. We have not had that yet. Since he was seen 5 days ago, is now back and not responding to therapy I think we do need to get him in the hospital for intractable nausea and vomiting. Lab Data Attestation: I reviewed the patient's lab results. Labs: Laboratory Results - last 24 hr 04/15/21 04/15/21 04/15/21 04:10 04:10 04:10 WBC 3.2 L RBC 3.77 L Hgb 12.6 L Hct 36.9 L MCV 97.9 H D MCH 33.4 H MCHC 34.1 D RDW Std Deviation 57.4 H RDW Coeff of Delilah 16.1 H Plt Count 40 L* MPV 11.4 Immature Gran % (Auto) 0.000 Neut % (Auto) 53.3 Lymph % (Auto) 25.7 [place] % (Auto) 19.8 H Eos % (Auto) 1.2 Baso % (Auto) 0.0 Absolute Neuts (auto) 1.7 L Absolute Lymphs (auto) 0.83 Nucleated RBC % 0 Differential Comment SCANNED Diff Path Review May foll PT INR Sodium 141 Potassium 3.9 Chloride 106 Carbon Dioxide 29.0 Anion Gap 6 BUN 4 L Creatinine 0.56 L Estim Creat Clear Calc 149.40 Est GFR (MDRD) Af Amer 191 Est GFR (MDRD) Non-Af 158 BUN/Creatinine Ratio 7.1 L Glucose 125 H Lactic Acid Calcium 8.0 L Total Bilirubin 0.90 AST 47 H ALT 29 Alkaline Phosphatase 116 Troponin I High Sens 10 Total Protein 6.7 Albumin 2.5 L Globulin 4.2 Albumin/Globulin Ratio 0.6 L Lipase 361 Urine Opiates Screen Urine Methadone Screen Ur Barbiturates Screen Ur Phencyclidine Scrn Ur Amphetamines Screen U Methamphetamin-MDMA U Benzodiazepines Scrn Urine Cocaine Screen U Cannabinoids Screen Ur Drug Screen Comment Ethyl Alcohol 63.0 04/15/21 04/15/21 04/15/21 04:10 04:20 05:10 WBC RBC Hgb Hct MCV MCH MCHC RDW Std Deviation RDW Coeff of Delilah Plt Count MPV Immature Gran % (Auto) Neut % (Auto) Lymph % (Auto) [place] % (Auto) Eos % (Auto) Baso % (Auto) Absolute Neuts (auto) Absolute Lymphs (auto) Nucleated RBC % Differential Comment Diff Path Review PT 17.3 H INR 1.5 Sodium Potassium Chloride Carbon Dioxide Anion Gap BUN Creatinine Estim Creat Clear Calc Est GFR (MDRD) Af Amer Est GFR (MDRD) Non-Af BUN/Creatinine Ratio Glucose Lactic Acid 2.1 H* Calcium Total Bilirubin AST ALT Alkaline Phosphatase Troponin I High Sens Total Protein Albumin Globulin Albumin/Globulin Ratio Lipase Urine Opiates Screen NEGATIVE Urine Methadone Screen NEGATIVE Ur Barbiturates Screen NEGATIVE Ur Phencyclidine Scrn NEGATIVE Ur Amphetamines Screen NEGATIVE U Methamphetamin-MDMA NEGATIVE U Benzodiazepines Scrn NEGATIVE Urine Cocaine Screen NEGATIVE U Cannabinoids Screen POSITIVE H Ur Drug Screen Comment Ethyl Alcohol Radiography Diagnostic Testing: Clinical Impression(s) from Imaging Studies Acute Abdomen Series 04/15/21 04:40 IMPRESSION: 1. No evidence for acute cardiopulmonary pathology. 2. Nonspecific bowel gas pattern. 3. Splenomegaly. Electronically Signed: Yayo Waldron MD at 5:12 EST , EKG Initial EKG: Comments: EKG done for nausea vomiting and abdominal discomfort in the elderly. EKG read by me shows a normal sinus rhythm with overall rate of 81. No ectopy. No acute ST elevation or depression. OH interval and QRS duration are normal. QTc is a bit long at 492 but he does have a history of this. Discharge Plan Dx/Rx/DC Orders Clinical Impression: Intractable nausea and vomiting, History of esophageal varices, Pancytopenia, History of alcoholism, Hx of cirrhosis Disposition Disposition: Acute Care Hospital [facility]
[2021-04-15 04:33] LABS: Absolute Lymphocyte Count 0.83 X10^3/uL (0.83-4.51); Absolute Neutrophil Count 1.7 X10^3/uL (2.0-7.7); Eosinophil# 0.04 X10^3/uL; Eosinophils% 1.2 % (0-5); Hematocrit 36.9 % (40-54); Hemoglobin 12.6 g/dL (13.0-16.5); Lymphocyte # 0.83 X10^3/ul (0.83-4.51); Lymphocyte % 25.7 % (19-41); Mean Corp Hgb Conc 34.1 g/dL (32-36); Mean Corpuscular Hgb 33.4 pg (27.0-32.0); Mean Corpuscular Volume 97.9 fL (80-94); Mean Platelet Vol. 11.4 fl (6.2-12.0); Monocyte# 0.64 X10^3/uL; Monocyte% 19.8 % (0-10); NRBC Flagged by Analyzer 0 % (0-5); Neutrophil # 1.72 X10^3/uL (2.7-7.7); Neutrophil % 53.3 % (47-70); POSITIVE COUNT YES; RBC Distribution Width CV 16.1 % (11.6-14.6); RBC Distribution Width SD 57.4 fl (35.1-43.9); Red Blood Count 3.77 M/mm3 (4.6-6.2); White Blood Count 3.2 K/mm3 (4.4-11.0)
[2021-04-15 04:36] LABS: Differential Indicated SCAN CRITERIA MET; Platelet Count 40 K/mm3 (150-450)
--- NOTE | 2021-04-15 04:40 | RAD_ITS ---
EXAM: XR ABDOMEN, 2 VIEWS AND XR CHEST, 1 VIEW CLINICAL INDICATION: Pain Pain TECHNIQUE: Frontal view of the chest, frontal view of the abdomen/pelvis and upright or decubitus view of the abdomen. This report was created using Pict report generation technology. COMPARISON: X-ray abdominal surgery 09/14/2020. CT scan abdomen and pelvis 04/10/2021. Chest x-ray 04/10/2021. FINDINGS: CHEST: LUNGS AND PLEURAL SPACES: Unremarkable. No consolidation or edema. No pneumothorax. No effusion. HEART: Unremarkable. Cardiac silhouette not enlarged. MEDIASTINUM: Central airways and mediastinal contour are unremarkable. ABDOMEN: INTRAPERITONEAL SPACE: No free air. GASTROINTESTINAL TRACT: Unremarkable. Non-obstructive. No bowel or stomach distention. ORGANS: The spleen is enlarged. No abnormal calcifications. TUBES, LINES AND DEVICES: None. BONES/JOINTS: There are multilevel degenerative changes in the lumbar spine. SOFT TISSUES: No acute findings. RAD/Acute Abdomen Inc Chest IMPRESSION: 1. No evidence for acute cardiopulmonary pathology. 2. Nonspecific bowel gas pattern. 3. Splenomegaly. Electronically Signed: Yayo Waldron MD at 5:12 EST Reading Location ID and State: [facility] / [place] , Service support ,
[2021-04-15 04:47] LABS: ALB/GLOB Ratio 0.6 RATIO (0.9-2.4); AST(SGOT) 47 U/L (15-37); Alanine Aminotransfer ALT/SGPT 29 U/L (16-61); Albumin, Serum 2.5 g/dL (3.2-5.0); Alkaline Phosphatase 116 U/L (45-117); Anion Gap 6 (5-15); BUN 4 mg/dL (7-18); BUN/Creat Ratio 7.1 RATIO (10-20); Chloride 106 mmol/L (98-107); Creatinine, Serum 0.56 mg/dL (0.70-1.30); EST Glomerular Filtration Rate 158 mL/min (>60); Est Glom Filt Rate - Afr Amer 191 mL/min (>60); Globulin 4.2 g/dL (2.2-4.2); Glucose 125 mg/dL (74-106); Lipase 361 U/L (73-393); Potassium 3.9 mmol/L (3.5-5.1); Protein, Total 6.7 g/dL (6.4-8.2); Sodium Level 141 mmol/L (136-145); Troponin-I HS 10 pg/mL (3.0-78.0)
[2021-04-15 04:48] LABS: International Normalized Ratio 1.5; Prothrombin Time (Protime)PT. 17.3 SECONDS (11.7-14.9)
[2021-04-15 04:55] LABS: Lactic Acid 2.1 mmol/L (0.4-1.9)
[2021-04-15 04:58] LABS: Differential Comment SCANNED
[2021-04-15] MEDS: proMETHazine 25 MG Tablet PO (05:05)
[2021-04-15 05:18] LABS: Mucous, Urine 0 SEEN /hpf (<or=2+)
[2021-04-15] MEDS: Ondansetron 4 MG/2 ML Vial IV ×2 (05:30→12:38)
[2021-04-15 06:00] LABS: Amphetamine Urine VISTA NEGATIVE (<1000 ng/mL); Barbiturate Urine VISTA NEGATIVE (< 200 ng/mL); Benzodiazepine Urine VISTA NEGATIVE (< 200 ng/mL); Cocaine Urine VISTA NEGATIVE (< 300 ng/mL); Ecstacy Urine VISTA NEGATIVE (< 500 ng/mL); Methadone Urine VISTA NEGATIVE (< 300 ng/mL); PCP Urine VISTA NEGATIVE (< 25 ng/mL); THC Urine VISTA POSITIVE (< 50 ng/mL); Vista UDS pH Range 5
[2021-04-15 06:10] LABS: Color, Urine Yellow (Yellow); Glucose, Dipstick Normal (Normal); Ketone-Dipstick Negative (Negative); Leukocyte Esterase-Dipstick 25 /ul (Negative); Nitrite-Dipstick Negative (Negative); Occult Blood-Urine Negative /ul (Negative); Protein-Dipstick Negative (Negative); Specific Gravity, Urine 1.015 (1.002-1.030); Urine Bilirubin Dipstick Negative (Negative); Urine Clarity Clear (Clear); Urine Urobilinogen Normal (Normal); Urine pH 6.5 (5.0 - 8.0)
--- NOTE | 2021-04-15 06:21 | HP.PCM.HOS_ITS ---
HPI - General General Date of Admission: 04/15/21 Date of Service: 04/15/21 Chief Complaint: Intractable nausea and emesis. HPI Narrative The patient is a 60 y/o M w/ PMHx: Chronic anemia/Fe deficiency anemia, EtOH abuse, Chronic pancytopenia secondary to EtOH abuse, PAD, Tobacco use, Liver cirrhosis with esophageal varices and GI bleed w/ most recent evaluation 01/30/21 with EKG with variceal banding who presents to the [facility] ED on 04/15/21 with history of serial presentations for similar complaints with ongoing intractable nausea and emesis and sore abdomen is resolved with notes decreased alcohol intake reporting only 1 beer and a hot dog day prior at 12:30 PM in the afternoon to presentation however alcohol level higher than 1 beer of note with ongoing serial marijuana cannabis usage but given not improving prompted ED evaluation. His abdominal discomfort he reports is diffuse and he notes more than his baseline but did have recent CT of the abdomen with similar complaints that demonstrated no acute findings. He notes that his abdominal stent in his baseline. Work-up in the ED included T 98.4, heart rate 83, BP 137/81, respiratory rate 16, 97% room air, CBC with WC 3.2, hemoglobin 12.6, platelet 40 without marked shift with ANC 1.7, coags with INR 1.5, PT 17.3, CMP with BUN/creatinine 4/0.56, glucose 125, lactic acid 2.1, total bilirubin 0.90, AST/LT 47/29, lipase 361, urinalysis pending, UDS with positive cannabis, ethyl alcohol 63, acute abdominal series with no acute findings, recent CT within the last 1 to 2 weeks with no acute findings per review of records. In the ED patient ministered normal saline, Phenergan, Benadryl, Zofran, Benadryl, pantoprazole 80 mg IV bolus x1. [facility] Medical History (Updated 04/15/21 @ 06:[address] Mariano Hollins MD) Alcohol use Alcoholic cirrhosis Aortic aneurysm without rupture Arthritis Ascites Cannabis hyperemesis syndrome concurrent with and due to cannabis abuse Chronic anemia Chronic pain Cirrhosis Cirrhosis Cirrhosis Dehydration Diastolic dysfunction Esophageal varices in alcoholic cirrhosis Excessive bleeding Gastric reflux History of cirrhosis of liver History of esophageal varices History of GI bleed Hypotension Injury of head and neck Liver cirrhosis, alcoholic Marijuana use Near syncope Pancytopenia Peripheral arterial disease Smoker Thrombocytopenia Thrombocytopenia Varices of esophagus determined by endoscopy Walker as ambulation aid Wears glasses Home Medications ferrous sulfate [iron] 325 mg PO DAILY 03/20/18 [History Last Taken 03/11/20] magnesium oxide 400 mg PO DAILYCM 03/12/20 [History Last Taken 03/11/20] potassium chloride 10 meq PO BID 03/12/20 [History Last Taken 03/11/20] trazodone 100 mg PO QHS PRN 12/03/20 [History Last Taken Unknown] furosemide 20 mg PO DAILY 12/04/20 [History Last Taken Unknown] lactulose 10 g PO DAILY #473 ml 12/04/20 [Rx Last Taken Unknown] spironolactone 50 mg PO BID 12/04/20 [History Last Taken Unknown] tramadol 50 mg tablet 50 mg PO Q6H PRN #20 tab 12/17/20 [Rx Last Taken Unknown] thiamine HCl (vitamin B1) 100 mg tablet 100 mg PO DAILY #30 tab 12/20/20 [Rx Last Taken Unknown] midodrine 10 mg PO TID 12/27/20 [History Last Taken 01/01/21 09:00] multivitamin 1 tab PO DAILY 12/27/20 [History Last Taken Unknown] meclizine 12.5 mg tablet 12.5 mg PO TID PRN #90 tab 01/25/21 [Rx Last Taken Unk nown] omeprazole 40 mg capsule,delayed release 40 mg PO BID #28 cap 03/28/21 [Rx Last Taken Unknown] promethazine 25 mg PO Q6H PRN PRN #12 tablet 04/11/21 [Rx Last Taken Unknown] Allergy/AdvReac Type Severity Reaction Status Date / Time No Known Allergies Allergy Verified 04/15/21 03:49 Family History Mother Cancer Father Lupus Surgical History (Updated 04/15/21 @ 06:[address] Antonella Tariq MD) History of esophagogastroduodenoscopy (EGD) History of removal of cyst Social History household members: none Smoking Status: Current every day smoker tobacco type: cigarettes alcohol intake: current alcohol intake frequency: a few times a week substance use type: does not use ROS ROS Narrative Admission Review of Systems: CONSTITUTIONAL: No weight loss, fever, chills, +weakness or fatigue. HEENT: Eyes: No visual loss, blurred vision, double vision or yellow sclerae. Ears, Nose, Throat: No hearing loss, sneezing, congestion, runny nose or sore throat. SKIN: No rash or itching, lesions, wounds. CARDIOVASCULAR: No chest pain, chest pressure or chest discomfort, palpitations, edema, orthopnea, syncopal events. RESPIRATORY: No shortness of breath, cough or sputum, wheezing, hemoptysis. GASTROINTESTINAL: + Abdominal discomfort, intractable nausea and emesis, chronic loose stools, No anorexia, melena, BRBPR. GENITOURINARY: No dysuria, frequency, urgency or retention. NEUROLOGICAL: No headache, dizziness, syncope, paralysis, ataxia, numbness or tingling in the extremities, focal weakness, change in bowel or bladder control, seizure. MUSCULOSKELETAL:+ muscle, back pain, joint pain or stiffness. HEMATOLOGIC: + anemia, bleeding or bruising. LYMPHATICS: No enlarged nodes. No history of splenectomy. PSYCHIATRIC: No history of depression or anxiety. ENDOCRINOLOGIC: No reports of sweating, cold or heat intolerance. No polyuria or polydipsia. ALLERGIES: No history of asthma, hives, eczema or rhinitis. Vital Signs Vital Signs Vital Signs: 04/15/21 03:52 04/15/21 06:18 Temperature 98.4 F Temperature Source Oral Pulse Rate 83 86 Respiratory Rate 16 16 Blood Pressure 137/81 H 138/64 H Blood Pressure Mean 99 88 Pulse Ox 97 Oxygen Delivery Method Room Air Weight Weight: 204 lb 12.951 oz Body Mass Index (BMI) 28.5 Physical Exam Narrative Physical Examination: General: Awake, alert, oriented x 3 and cooperative, laying in the ED bed, notes significant pain but appears comfortable at this current time. Skin: Normal color, normal turgor, no icterus, no cyanosis except chronic bilateral lower extremity venous stasis skin changes. HEENT: AT/NC, EOMI, PERRLA, mildly dry MM, no carotid bruits or JVD noted. Lungs: Diminished, greater bases, appropriate effort, no rales, ronchi or wheezing. Heart: Regular rate and rhythm; no gallop, rub audible. Abdomen: Soft, diffuse generalized discomfort with palpation, pain seems to lessen with distraction with examination, distention which he notes is chronic, distant bowel sounds, difficult to assess HSM secondary to pain reported as well as abdominal chronic distention. Extremities: No cyanosis, clubbing, or edema. Neurological: Patient awake, alert, oriented x 3, cognitive function intact; pupils equally reactive to light and accommodation, cranial nerves II-XII grossly normal, moving all 4 extremities, no focal deficits, strength moderately global decrease secondary to acute presentation and complaints. Psychiatric: Affect appears fatigued otherwise normal, no acute evidence of depressive or anxiety feelings. Results Lab / Micro Data Result Diagrams: 04/15/21 04:10 04/15/21 04:10 Labs: Laboratory Results - last 24 hr 04/15/21 04:10: Ethyl Alcohol 63.0 04/15/21 04:10: WBC 3.2 L, RBC 3.77 L, Hgb 12.6 L, Hct 36.9 L, MCV 97.9 H D, MCH 33.4 H, MCHC 34.1 D, RDW Std Deviation 57.4 H, RDW Coeff of Delilah 16.1 H, Plt Co unt 40 L*, MPV 11.4, Immature Gran % (Auto) 0.000, Neut % (Auto) 53.3, Lymph % (Auto) 25.7, [place] % (Auto) 19.8 H, Eos % (Auto) 1.2, Baso % (Auto) 0.0, Absolute Neuts (auto) 1.7 L, Absolute Lymphs (auto) 0.83, Nucleated RBC % 0, Differential Comment SCANNED, Diff Path Review June foll 04/15/21 04:10: Sodium 141, Potassium 3.9, Chloride 106, Carbon Dioxide 29.0, Anion Gap 6, BUN 4 L, Creatinine 0.56 L, Estim Creat Clear Calc 149.40, Est GFR (MDRD) Af Amer 191, Est GFR (MDRD) Non-Af 158, BUN/Creatinine Ratio 7.1 L, Glucose 125 H, Calcium 8.0 L, Total Bilirubin 0.90, AST 47 H, ALT 29, Alkaline Phosphatase 116, Troponin I High Sens 10, Total Protein 6.7, Albumin 2.5 L, Globulin 4.2, Albumin/Globulin Ratio 0.6 L, Lipase 361 04/15/21 04:10: Lactic Acid 2.1 H* 04/15/21 04:20: PT 17.3 H, INR 1.5 04/15/21 05:10: Urine Opiates Screen NEGATIVE, Urine Methadone Screen NEGATIVE, Ur Barbiturates Screen NEGATIVE, Ur Phencyclidine Scrn NEGATIVE, Ur Amphetamines Screen NEGATIVE, U Methamphetamin-MDMA NEGATIVE, U Benzodiazepines Scrn NEGATIVE, Urine Cocaine Screen NEGATIVE, U Cannabinoids Screen POSITIVE H, Ur Drug Screen Comment Radiology Impression Acute Abdomen Series 04/15/21 04:40 IMPRESSION: 1. No evidence for acute cardiopulmonary pathology. 2. Nonspecific bowel gas pattern. 3. Splenomegaly. Electronically Signed: Yayo Waldron MD at 5:12 EST , Assessment & Plan Assessment/Plan (1) Intractable nausea and vomiting: PLAN: The patient is a 60 y/o M w/ PMHx: Chronic anemia/Fe deficiency anemia, EtOH abuse, Chronic pancytopenia secondary to EtOH abuse, PAD, Tobacco use, Liver cirrhosis with esophageal varices and GI bleed w/ most recent evaluation 01/30/21 with EKG with variceal banding who presents to the [facility] ED on 04/15/21 with history of serial presentations for similar complaints with ongoing intractable nausea and emesis and sore abdomen. #1. Intractable nausea and emesis: Potentially associated with chronic cannabis usage, potentially cyclic vomiting, serial ED presentations of note given ongoing intractable nature will admit to medical surgical floor, maintain on fall and aspiration precautions, continue judicious IV fluids, maintain on IV PPI until oral intake more appropriate, allow clears if able to tolerate, continue as needed antiemetics. #2. Chronic liver cirrhosis: Secondary to alcohol abuse, will continue spironolactone, Lasix, lactulose chronic regimen. #3. Chronic pancytopenia: Admission CBC with WC 3.2, hemoglobin 12.6, platelet 40 similar to prior, will continue to trend CBC. #4. Chronic anemia/iron deficiency anemia: Admission hemoglobin 12.6, stable, continue iron supplementation and hemoglobin trending. #5. EtOH Abuse: Patient notes routine consumption of several beers per day although reports that his been cutting back. Will maintain on CIWA protocol, MVI, thiamine and folic acid. Magnesium and phosphorus levels requested. May need pending length of admission transition to alcohol withdrawal protocol. #6. GERD with history of variceal bleed status post banding: Most recent EGD noted 01/2021 with banding at that time, no recent history of hematemesis or dark black stools, will continue PPI as noted. #7. Tobacco Abuse: Encouraged cessation, inpatient consultation per RT, NR if desired. #8. DVT prophylaxis: SCDs, defer chemoprophylaxis given chronic pancytopenia. Charges/Coding Visit Charges OBSV E&M: 24252 Initial observation care L3
[2021-04-15 06:26] LABS: White Blood Cells 0-5 SEEN /hpf (0-5)
[2021-04-15 06:27] LABS: Bacteria RARE /hpf (None Seen); Red Blood Cells-Urine 0 SEEN /hpf (0-5); Squamous Epithelial Cells - UA 0-5 SEEN /hpf (0-5)
[2021-04-15 06:57] LABS: Phosphorus 3.3 mg/dL (2.5-4.9)
[2021-04-15 08:17] LABS: Reflex Lactate? Y
[2021-04-15 09:17] LABS: Lactic Acid 1.8 mmol/L (0.4-1.9)
[2021-04-15] MEDS: 0.9% Normal Saline 1,000 ML 125 ML IV (09:31)
[2021-04-15] MEDS: proCHLORPERazine 10 MG/2 ML Vial 5 MG IV ×2 (10:07→20:19)
[2021-04-15] MEDS: 0.9% Saline Lock 10 ML Syringe IV ×2 (10:08→12:38)
[2021-04-15] MEDS: Folic Acid 1 MG Tablet PO ×2 (12:23→18:44)
[2021-04-15] MEDS: Ferrous Sulfate 325 MG Tablet PO (12:25)
[2021-04-15] MEDS: Lactulose 20 GM/30 ML UDC 10 GM PO (12:32)
[2021-04-15] MEDS: Pantoprazole Sodium 40 MG Tablet PO ×2 (12:37→21:13)
--- NOTE | 2021-04-15 12:58 | CASEMGMT ---
Social Work SW spoke w/pt about his alcohol and marijuana use. Pt states is really working on cutting back on drinking. Pt states he has not drank hard alcohol in years. SW asked pt about support from counseling to stop drinking, pt states that he is the only one who can stop the drinking. Pt states his said the same thing, but he is going to continue to do this on his own. Pt declined any referrals. SW asked about the marijuana use. Pt states he uses marijuana very rarely. He used it as he thought it would help the nausea but it did not. Pt denies needing any help with this as well. He states he got nauseous at a birthday constitution party yesterday at 1pm and it just continued. SW let pt know should he change his mind and want any resources for support around substance abuse, to ask for the SW and SW will bring in resources. Pt states understanding. THIERNO Bustos
[2021-04-15 14:07] LABS: Pathologist Review Reviewed
[2021-04-15] MEDS: Midodrine HCl 5 MG Tablet 10 MG PO ×2 (14:54→18:44)
[2021-04-15] MEDS: 0.9% Normal Saline 1,000 ML 50 ML IV (18:42)
[2021-04-15] MEDS: Potassium Chloride Oral Tablet 10 MEQ PO (18:43)
[2021-04-15] MEDS: traMADol 50 MG Tablet PO (20:19)
[2021-04-15] MEDS: Spironolactone 50 MG Tablet PO (21:13)
[2021-04-15] MEDS: traZODone 100 MG Tablet PO (21:16)
[2021-04-16] MEDS: Ondansetron 4 MG/2 ML Vial IV (02:25)
[2021-04-16 02:31] VITALS: BP 127/62; PULSE 86; RESP 16; TEMP 36.6; O2SAT 94
[2021-04-16 06:00] VITALS: BP 118/56; PULSE 84; RESP 16; TEMP 36.6; O2SAT 95
[2021-04-16 06:04] LABS: Absolute Lymphocyte Count 0.94 X10^3/uL (0.83-4.51); Absolute Neutrophil Count 0.8 X10^3/uL (2.0-7.7); Basophil# 0.01 X10^3/uL; Basophil% 0.5 % (0-1); Eosinophil# 0.03 X10^3/uL; Eosinophils% 1.4 % (0-5); Hematocrit 32.9 % (40-54); Hemoglobin 11.3 g/dL (13.0-16.5); Lymphocyte # 0.94 X10^3/ul (0.83-4.51); Lymphocyte % 42.5 % (19-41); Mean Corp Hgb Conc 34.3 g/dL (32-36); Mean Corpuscular Volume 96.2 fL (80-94); Mean Platelet Vol. 10.8 fl (6.2-12.0); Monocyte# 0.47 X10^3/uL; Monocyte% 21.3 % (0-10); NRBC Flagged by Analyzer 0.9 % (0-5); Neutrophil # 0.76 X10^3/uL (2.7-7.7); Neutrophil % 34.3 % (47-70); POSITIVE COUNT YES; POSITIVE DIFFERENTIAL YES; RBC Distribution Width CV 16.3 % (11.6-14.6); RBC Distribution Width SD 57.6 fl (35.1-43.9); Red Blood Count 3.42 M/mm3 (4.6-6.2); White Blood Count 2.2 K/mm3 (4.4-11.0)
[2021-04-16 06:06] LABS: Differential Indicated SCAN CRITERIA MET
[2021-04-16 06:07] LABS: Platelet Count 27 K/mm3 (150-450)
[2021-04-16 06:32] LABS: Differential Comment SCANNED; Platelet Estimate MKD DEC (ADEQ)
[2021-04-16 06:41] LABS: ALB/GLOB Ratio 0.6 RATIO (0.9-2.4); AST(SGOT) 39 U/L (15-37); Alanine Aminotransfer ALT/SGPT 25 U/L (16-61); Albumin, Serum 2.1 g/dL (3.2-5.0); Alkaline Phosphatase 83 U/L (45-117); Anion Gap 5 (5-15); BUN 5 mg/dL (7-18); BUN/Creat Ratio 11.2 RATIO (10-20); Calcium,Total 7.4 mg/dL (8.5-10.1); Chloride 112 mmol/L (98-107); Creatinine, Serum 0.45 mg/dL (0.70-1.30); EST Glomerular Filtration Rate 204 mL/min (>60); Est Glom Filt Rate - Afr Amer 247 mL/min (>60); Estimated Creatinine Clearance 185.93 ml/min; Globulin 3.4 g/dL (2.2-4.2); Glucose 103 mg/dL (74-106); Potassium 3.2 mmol/L (3.5-5.1); Protein, Total 5.5 g/dL (6.4-8.2); Sodium Level 142 mmol/L (136-145)
[2021-04-16 07:41] VITALS: BP 124/51; PULSE 80; RESP 18; TEMP 36.9; O2SAT 98
[2021-04-16] MEDS: 0.9% Saline Lock 10 ML Syringe IV (07:44)
[2021-04-16] MEDS: proCHLORPERazine 10 MG/2 ML Vial 5 MG IV (07:44)
[2021-04-16] MEDS: Pantoprazole Sodium 40 MG Tablet PO (09:46)
[2021-04-16] MEDS: Ferrous Sulfate 325 MG Tablet PO (09:46)
[2021-04-16] MEDS: Potassium Chloride Oral Tablet 10 MEQ PO (09:46)
[2021-04-16] MEDS: Midodrine HCl 5 MG Tablet 10 MG PO ×2 (09:46→12:08)
[2021-04-16] MEDS: Multivitamins,Therapeutic Tablet 1 TABLET PO (09:46)
[2021-04-16] MEDS: Potassium Chloride 10mEq/100mL 10 MEQ/100 ML IV.SOLN. 100 MEQ IV BOLUS ×4 (09:46→13:37)
[2021-04-16] MEDS: Furosemide 20 MG Tablet PO (09:47)
[2021-04-16] MEDS: Thiamine Hydrochloride 100 MG Tablet PO (09:47)
[2021-04-16] MEDS: Folic Acid 1 MG Tablet PO (09:47)
[2021-04-16] MEDS: Spironolactone 50 MG Tablet PO (09:47)
[2021-04-16] MEDS: Lactulose 20 GM/30 ML UDC 10 GM PO (09:47)
[2021-04-16] MEDS: Magnesium Chloride 64 MG Delay Rel.Tablet 128 MG PO (09:47)
--- NOTE | 2021-04-16 11:14 | DS.PCM_ITS ---
Providers Date of Admission: 04/15/21 Primary Care Physician: Dr. Alice Cuellar DO Reason For Visit: INTRACTABLE N/V Diagnosis Discharge Diagnosis (1) Intractable nausea and vomiting: Status: Acute Code(s): R11.2 - Nausea with vomiting, unspecified Medications at Discharge Home Medications ferrous sulfate [iron] 325 mg PO DAILY 03/20/18 magnesium oxide 400 mg PO DAILYCM 03/12/20 potassium chloride 10 meq PO BID 03/12/20 trazodone 100 mg PO QHS PRN 12/03/20 furosemide 20 mg PO DAILY 12/04/20 lactulose 10 g PO DAILY #473 ml 12/04/20 spironolactone 50 mg PO BID 12/04/20 tramadol 50 mg tablet 50 mg PO Q6H PRN #20 tab 12/17/20 thiamine HCl (vitamin B1) 100 mg tablet 100 mg PO DAILY #30 tab 12/20/20 midodrine 10 mg PO TID 12/27/20 multivitamin 1 tab PO DAILY 12/27/20 meclizine 12.5 mg tablet 12.5 mg PO TID PRN #90 tab 01/25/21 omeprazole 40 mg capsule,delayed release 40 mg PO BID #28 cap 03/28/21 promethazine 25 mg PO Q6H PRN PRN #12 tablet 04/11/21 Hospital Course Operations None Procedures None Summary of Care Provided Minutes Spent on Discharge: 36 Hospital Course: Mr. Dillon is a 60-year-old white male with a history of liver cirrhosis, ongoing alcohol abuse and marijuana use who presented to the emergency department at [facility] on 04/15/2021 with intractable nausea vomiting. The patient has had several emergency department visits and hospitalizations with regards to this and in fact underwent an EGD here at his last hospitalization on 01/30/2022 that showed recently bleeding grade 3 esophageal varices that were banded, to isolated gastric varices without any signs of bleeding and a normal duodenum. Since that time the patient has been following with Dr. Sheldon as an outpatient and has been maintained antiemetic medications. He continues to use marijuana and reported only having 1 beer at 12:30 PM, however, his blood alcohol on arrival here was 63 with the lab work being done 16 hours after he admits to his last drink. His tox screen was also positive for cannabis. The patient has been instructed previously to limit cannabis use and stop alcohol intake however he has had problems with stopping use of these 2 substances and I suspect that these are relating to his intermittent issues with nausea and vomiting. He was treated with IV fluids and maintained on his PPI during his hospitalization and as needed antiemetics were utilized with good success. On the a.m. of 04/16/2021 he was able to eat a regular breakfast and lunch without significant issues and be discharged home with instructions to continue his as needed home antimedics and to cease use of cannabis and alcohol. He has follow- up with Dr. Sheldon and it was encouraged that he follow-up with him within the next 2 to 4 weeks and follow-up with his PCP in the next 1 to 2 weeks. We did discuss with the patient that if he continues the utilization of the substances that he has been using it is likely that he will continue to have intermittent nausea and vomiting issues. He voiced understanding. Discharge diagnoses: Intractable nausea vomiting-resolved Liver cirrhosis secondary to EtOH Chronic pancytopenia secondary to liver disease Splenomegaly GERD Esophageal varices Portal hypertension Cannabis abuse EtOH abuse Tobacco abuse History of iron deficiency Chronic hypotension secondary to liver disease Physical Exam Const alert, oriented x3 and no apparent distress Constitutional Narrative: Obese upper middle-aged white male sitting up in bed, appears much older than stated age, appears nontoxic and comfortable at this time General Appearance: cooperative, comfortable, well developed and disheveled Orientation / Consciousness: awake Exam Limitations: no limitations Nutritional Appearance: overweight HEENT normocephalic, head/scalp atraumatic, hearing grossly normal bilaterally and moist oral mucous membranes HEENT Narrative: Dentition is poor, Mallampati is 2-3, no thrush Eyes PERRL, EOMs intact bilaterally and conjunctivae normal Eyes Narrative: No scleral icterus Neck no lymphadenopathy, supple and no JVD Neck Narrative: Trachea midline, no thyroid enlargement Resp normal respiratory effort, no retractions, no use of accessory muscles and clear to auscultation bilaterally Auscultation: Negative for crackles, rales, rhonchi or wheezes Cardio regular rate, regular rhythm, S1 normal heart sound, S2 normal heart sound, no murmurs, no rub, no gallops, no clicks and no JVD GI normal to inspection, nondistended, normoactive bowel sounds, soft to palpation, non-tender, non-distended and hepatosplenomegaly GI Narrative: Diffusely diminished but clear, no significant fluid wave or distention, splenomegaly present Extremity Extremity Narrative: Trace bilateral lower extremity edema, no cyanosis or clubb ing Skin no rashes or lesions noted, no wounds, skin turgor normal and no jaundice Skin Narrative: Scattered ecchymotic areas in various stages of healing Neuro oriented x3, CN's II-XII intact bilaterally, moves all extremities, no focal motor deficits and no sensory deficits noted Neuro Narrative: Mild generalized weakness Sensorium / Orientation: awake and alert Speech: speech normal Psych Psych Narrative: Affect is slightly flat but interaction is appropriate Weight / BMI Weight Weight: 89.811 kg Body Mass Index (BMI) 27.6 ABG / Lab / Microbiology Data Result Diagrams: 04/16/21 05:04 04/16/21 05:04 Laboratory: Laboratory Results - last 24 hr 04/15/21 04:10: Diff Path Review Reviewed 04/16/21 05:04: WBC 2.2 L, RBC 3.42 L, Hgb 11.3 L, Hct 32.9 L, MCV 96.2 H, MCH 33.0 H, MCHC 34.3, RDW Std Deviation 57.6 H, RDW Coeff of Delilah 16.3 H, Plt Count 27 L*, MPV 10.8, Immature Gran % (Auto) 0.000, Neut % (Auto) 34.3 L, Lymph % (Auto) 42.5 H, [place] % (Auto) 21.3 H, Eos % (Auto) 1.4, Baso % (Auto) 0.5, Absolute Neuts (auto) 0.8 L, Absolute Lymphs (auto) 0.94, Nucleated RBC % 0.9, Differential Comment SCANNED, Diff Path Review May raquel, Platelet Estimate MKD 04/16/21 05:04: Sodium 142, Potassium 3.2 L, Chloride 112 H, Carbon Dioxide 2 5.0, Anion Gap 5, BUN 5 L, Creatinine 0.45 L, Estim Creat Clear Calc 185.93, Est GFR (MDRD) Af Amer 247, Est GFR (MDRD) Non-Af 204, BUN/Creatinine Ratio 11.2, Glucose 103, Calcium 7.4 L, Total Bilirubin 1.50 H, AST 39 H, ALT 25, Alkaline Phosphatase 83, Total Protein 5.5 L, Albumin 2.1 L, Globulin 3.4, Albumin/Globulin Ratio 0.6 L D/C Instructions Discharge Diet: No restrictions (Fluids < 2000 cc per day) and [place] diet Discharge Activity: Return to Normal Activity Meaningful Use Info Meaningful Use Diagnoses (Choose all that apply): None applicable Discharge Plan Admission Admit Date/Time: 04/15/21 06:29 Primary Reason for Your Visit: Nausea and Vomiting Attending Provider: Kerry Vargas Primary Care Provider: Alice Cuellar Instructions Additional Instructions / Restrictions: 1. Highly recommend that you stop drinking and smoking Marijuana as these both can cause nausea and vomiting Discharge Orders/Prescriptions Prescriptions: Continued tramadol 50 mg tablet 50 mg PO Q6H PRN (Reason: pain) Qty: 20 RF: 0 ferrous sulfate [iron] 325 MG tablet 325 mg PO DAILY RF: 0 potassium chloride 10 MEQ tablet extended release 10 meq PO BID RF: 0 magnesium oxide 400 MG tablet 400 mg PO DAILYCM RF: 0 trazodone 100 mg Tablet 100 mg PO QHS PRN (Reason: sleep) RF: 0 lactulose 10 gram/15 mL solution 10 g PO DAILY Qty: 473 RF: 0 furosemide 20 mg tablet 20 mg PO DAILY RF: 0 spironolactone 50 mg tablet 50 mg PO BID RF: 0 multivitamin Tablet 1 tab PO DAILY RF: 0 midodrine 10 mg tablet 10 mg PO TID RF: 0 promethazine 25 MG tablet 25 mg PO Q6H PRN PRN (Reason: Nausea) Qty: 12 RF: 0 thiamine HCl (vitamin B1) [Vitamin B-1] 100 mg tablet 100 mg PO DAILY Qty: 30 RF: 2 meclizine 12.5 mg tablet 12.5 mg PO TID PRN (Reason: dizziness) Qty: 90 RF: 2 omeprazole 40 mg capsule,delayed release(DR/EC) 40 mg PO BID Qty: 28 RF: 0 Referrals / Follow Up: Alice Cuellar DO [Primary Care Provider] - Within 2 Weeks Hugo Sheldon DO [STAFF PHYSICIAN] - Within 1 Month Disposition Disposition (needs filled in before D/C Order can be placed): Home, Self Care Charges/Coding Visit Charges Inpatient E&M: 91777 Disch Hosp
--- NOTE | 2021-04-16 11:43 | CASEMGMT ---
VAL CM in to discuss RODAS form with patient. RN CM explained RODAS form, patient voiced understanding. Pt signed form and filed in chart. Pt provided with a copy of signed RODAS form. Patient had no further questions or concerns at this time.
[2021-04-16 13:43] LABS: MG Sendout 1.6 mg/dL (1.6-2.3)
[2021-04-16 14:10] VITALS: BP 133/78; PULSE 99; RESP 18; TEMP 36.9; O2SAT 98
[2021-04-17 09:41] LABS: Pathologist Review Reviewed
== END 2021-04-16 16:14 | disposition home or self-care (01) ==
LOC: ED 06:25 → MS3 06:35
PROVIDERS: Admitting Provider Family Medicine; Emergency Provider Emergency Medicine; PCP Family Medicine; Visit Provider Internal Medicine
DX: R11.2 Nausea with vomiting, unspecified (principal); K76.6 Portal hypertension; D61.818 Other pancytopenia; K70.30 Alcoholic cirrhosis of liver without ascites; F12.10 Cannabis abuse, uncomplicated; K21.9 Gastro-esophageal reflux disease without esophagitis; R10.84 Generalized abdominal pain; F10.10 Alcohol abuse, uncomplicated; I95.89 Other hypotension; R16.1 Splenomegaly, not elsewhere classified; Z79.899 Other long term (current) drug therapy; F17.210 Nicotine dependence, cigarettes, uncomplicated; Y90.3 Blood alcohol level of 60-79 mg/100 ml
CPT/HCPCS: 36415; 74022; 80053; 80307; 81001; 82077; 83605; 83690; 83735; 84100; 84484; 85025; 85610; 93005; 96361; 96365; 96375; 96376; 99218; 99285; 99406; J7030; J7050; A4216; G0378; J2405; J3490

== ENCOUNTER 2021-05-21 22:13 | Inpatient (IN) | payer MEDICARE, SELFPAY ==
[2021-05-21 22:14] VITALS: BP 143/76; PULSE 85; RESP 16; TEMP 36.2; O2SAT 98; BMI 25.7
--- NOTE | 2021-05-21 23:32 | EKG12_ITS ---
Test Reason : DYSRHYTHMIA Blood Pressure : / mmHG Vent. Rate : 084 BPM Atrial Rate : 084 BPM P-R Int : 178 ms QRS Dur : 090 ms QT Int : 418 ms P-R-T Axes : 057 059 059 degrees QTc Int : 493 ms Normal sinus rhythm Prolonged QT Abnormal ECG Confirmed by AMANDA DAN, DEYANIRA ([id number]), editorial writer ANNABLELA TRIANA ([id number]) on 05/24/2021 8:40:27 AM Referred By: PL Confirmed By:DEYANIRA PATEL MD
--- NOTE | 2021-05-21 23:34 | EDS_ITS ---
HPI History of Present Illness Chief Complaint: Abd Pain Informant: patient Narrative Narrative: Presents with diffuse abdominal pain that started sometime today. He states he has this quite frequently. He never knows what causes it. He has had some vomiting. However, he has not vomited blood this time. His bowel habits have been normal. He is taking his lactulose. He has a prescription for Phenergan from April that is not yet filled. He states he has used Zofran before that does not work as well. He states he is only drinking about 3 beers a week now. He states the pain is in the mid part of the abdomen and radiates out. Sometimes it will go into the lower chest area. But he is not short of breath. He has a chronic cough but that is not changed. No hemoptysis. No fevers chills. [facility] Medical History Alcohol use Alcoholic cirrhosis Aortic aneurysm without rupture Arthritis Ascites Cannabis hyperemesis syndrome concurrent with and due to cannabis abuse Chronic anemia Chronic pain Cirrhosis Cirrhosis Cirrhosis Dehydration Diastolic dysfunction Esophageal varices in alcoholic cirrhosis Excessive bleeding Gastric reflux History of alcoholism History of cirrhosis of liver History of esophageal varices History of esophageal varices History of GI bleed Hx of cirrhosis Hypotension Injury of head and neck Liver cirrhosis, alcoholic Marijuana use Near syncope Pancytopenia Pancytopenia Peripheral arterial disease Smoker Thrombocytopenia Thrombocytopenia Varices of esophagus determined by endoscopy Walker as ambulation aid Wears glasses Home Medications ferrous sulfate [iron] 325 mg PO DAILY 03/20/18 [History Last Taken 03/11/20] magnesium oxide 400 mg PO TID 03/12/20 [History Last Taken 03/11/20] potassium chloride 10 meq PO BID 03/12/20 [History Last Taken 03/11/20] trazodone 100 mg PO QHS PRN 12/03/20 [History Last Taken Unknown] furosemide 20 mg PO DAILY 12/04/20 [History Last Taken Unknown] lactulose 10 g PO DAILY #473 ml 12/04/20 [Rx Last Taken Unknown] spironolactone 50 mg PO BID 12/04/20 [History Last Taken Unknown] tramadol 50 mg tablet 50 mg PO Q6H PRN #20 tab 12/17/20 [Rx Last Taken Unknown] thiamine HCl (vitamin B1) 100 mg tablet 100 mg PO DAILY #30 tab 12/20/20 [Rx Last Taken Unknown] midodrine 10 mg PO TID 12/27/20 [History Last Taken 01/01/21 09:00] multivitamin 1 tab PO DAILY 12/27/20 [History Last Taken Unknown] meclizine 12.5 mg tablet 12.5 mg PO TID PRN #90 tab 01/25/21 [Rx Last Taken Unknown] omeprazole 40 mg capsule,delayed release 40 mg PO BID #28 cap 03/28/21 [Rx Last Taken Unknown] promethazine 25 mg PO Q6H PRN PRN #12 tablet 04/11/21 [Rx Last Taken Unknown] Allergy/AdvReac Type Severity Reaction Status Date / Time No Known Allergies Allergy Verified 05/21/21 22:16 Family History Mother Cancer Father Lupus Surgical History History of esophagogastroduodenoscopy (EGD) History of removal of cyst Social History household members: none Smoking Status: Current every day smoker tobacco type: cigarettes alcohol intake: current alcohol intake frequency: a few times a week substance use type: does not use ROS ROS ED Constitutional Constitutional ED: Denies chills or fever(s) Eyes Eyes: Denies blurry vision ENT ENT ED: Reports rhinorrhea and other Details: Chronic rhinorrhea that is unchanged. ; Denies sore throat Cardiovascular Cardiovascular: Reports chest pain and other Details: See history of present illness Respiratory/Chest Respiratory/Chest: Reports cough; Denies dyspnea or sputum Gastrointestinal Gastrointestinal: Reports abdominal pain, nausea and vomiting; Denies diarrhea or melena Genitourinary Genitourinary ED: Denies dysuria, hematuria or urinary frequency Musculoskeletal Musculoskeletal: Denies myalgias Integumentary Denies rash Neurologic Neurologic: Denies headache(s) Endocrine Endocrinology: Denies polydipsia or polyuria Allergic/Immunologic Allergic/Immunologic ED: Denies urticaria EXAM Physical Exam Const Vital Signs: 05/21/21 22:14 05/22/21 01:00 05/22/21 03:00 Temperature 97.2 F L Temperature Source Temporal Pulse Rate 85 Respiratory Rate 16 15 18 Blood Pressure 143/76 H Blood Pressure Mean 98 Pulse Ox 98 Oxygen Delivery Method Room Air Room Air Room Air 05/22/21 03:12 Temperature 96.5 F L Temperature Source Temporal Pulse Rate 79 Respiratory Rate 18 Blood Pressure 114/82 H Blood Pressure Mean 92 Pulse Ox 97 Oxygen Delivery Method Room Air Positive well nourished and well developed General Appearance ED: well developed and NAD; Negative for cyanotic or diaphoretic HEENT Reports moist mucous membranes Eyes General Eye ED: Negative for pale conjunctiva or scleral icterus Neck no JVD Chest Wall inspection of chest normal and palpation of chest normal Resp normal respiratory effort and clear to auscultation bilaterally Effort and Inspection: Negative for pain with movement Auscultation: Negative for rales, rhonchi or wheezes Cardio regular rate, regular rhythm and no murmurs GI normal to inspection, nondistended, normoactive bowel sounds GI Narrative: Patient's abdomen is not significantly distended. He has mild nonfocal tenderness without rebound or guarding. He has a well-healed significant surgical scars from his prior gastric bleed surgery Palpation: soft Back/Spine no CVA tenderness Extremity Extremity Narrative: Chronic stasis changes. No significant edema though Neuro oriented x3 Sensorium / Orientation: alert; Negative for lethargic or stuporous Psych mental status grossly normal Skin no rashes or lesions noted MDM MDM MDM Narrative Medical decision making narrative: Patient's labs show some pancytopenia but nowhere near as much as normal. His platelets are better than normal. His liver function tests are actually better than normal. Lipase is a bit high at 581. Electrolytes show no marked ab knees. Alcohol was elevated 208. I talked to the patient about this. He had told me he had 3 beers a week. I think this alcohol level does not match 3 beers in a week. CT showed less ascites than normal. There was some stranding around the gallbladder with stones. However, when I looked at the prior images its not a marked difference. There is less fluid but the gallbladder looks similar. Patient also states more of his pain is between the umbilicus and the suprapubic area not as much in the upper abdomen. He has mild tenderness everywhere. But he is up walking around easily. I do not think this really represents an acute cholecystitis. I did discuss the case with Dr. Mendez on surgery. She was also able to look at these images. She recommend admission which I think this patient needs for symptom control. She recommended a HIDA scan without CCK in the morning. I discussed the case with the hospitalist. Lab Data Attestation: I reviewed the patient's lab results. Labs: Laboratory Results - last 24 hr 05/21/21 05/21/21 05/21/21 23:40 23:40 23:40 WBC 4.5 RBC 3.61 L Hgb 12.2 L Hct 33.3 L MCV 92.2 MCH 33.8 H MCHC 36.6 H RDW Std Deviation 54.9 H RDW Coeff of Delilah 16.1 H Plt Count 53 L MPV 10.4 Immature Gran % (Auto) 0.200 Neut % (Auto) 47.6 Lymph % (Auto) 37.7 [place] % (Auto) 13.2 H Eos % (Auto) 0.9 Baso % (Auto) 0.4 Absolute Neuts (auto) 2.1 Absolute Lymphs (auto) 1.68 Nucleated RBC % 0 Sodium 141 Potassium 3.8 Chloride 108 H Carbon Dioxide 27.0 Anion Gap 6 BUN 4 L Creatinine 0.56 L Estim Creat Clear Calc 149.40 Est GFR (MDRD) Af Amer 193 Est GFR (MDRD) Non-Af 160 BUN/Creatinine Ratio 7.2 L Glucose 103 Calcium 8.0 L Total Bilirubin 1.20 H AST 58 H ALT 37 Alkaline Phosphatase 96 Troponin I High Sens 8 Total Protein 6.6 Albumin 2.8 L Globulin 3.8 Albumin/Globulin Ratio 0.7 L Lipase 581 H Urine Color Urine Clarity Urine pH Ur Specific [place] Urine Protein Urine Glucose (UA) Urine Ketones Urine Occult Blood Urine Nitrite Urine Bilirubin Urine Urobilinogen Ur Leukocyte Esterase Urine RBC Urine WBC Ur Squamous Epith Cells Urine Bacteria Urine Mucus Ethyl Alcohol 208.0 05/21/21 23:46 WBC RBC Hgb Hct MCV MCH MCHC RDW Std Deviation RDW Coeff of Delilah Plt Count MPV Immature Gran % (Auto) Neut % (Auto) Lymph % (Auto) [place] % (Auto) Eos % (Auto) Baso % (Auto) Absolute Neuts (auto) Absolute Lymphs (auto) Nucleated RBC % Sodium Potassium Chloride Carbon Dioxide Anion Gap BUN Creatinine Estim Creat Clear Calc Est GFR (MDRD) Af Amer Est GFR (MDRD) Non-Af BUN/Creatinine Ratio Glucose Calcium Total Bilirubin AST ALT Alkaline Phosphatase Troponin I High Sens Total Protein Albumin Globulin Albumin/Globulin Ratio Lipase Urine Color Yellow Urine Clarity Clear Urine pH 6.5 Ur Specific [place] 1.010 Urine Protein Negative Urine Glucose (UA) Normal Urine Ketones Negative Urine Occult Blood Negative Urine Nitrite Negative Urine Bilirubin Negative Urine Urobilinogen 1 H Ur Leukocyte Esterase Negative Urine RBC 0 SEEN Urine WBC 0 SEEN Ur Squamous Epith Cells 0 SEEN Urine Bacteria 2+ Urine Mucus 0 SEEN Ethyl Alcohol Discharge Plan Triage Chief Complaint: Abd Pain ED Provider: Mariano Hollins Dx/Rx/DC Orders Clinical Impression: Intractable nausea and vomiting, Cholelithiasis, Abdominal pain, Alcoholism, Elevated lipase Primary Care Provider: Alice Cuellar Disposition Disposition: Acute Care Hospital [facility]
[2021-05-21] MEDS: Ondansetron 4 MG/2 ML Vial IV (23:48)
[2021-05-21] MEDS: Morphine 4 MG/ML Syringe IV (23:49)
[2021-05-21 23:57] LABS: Mucous, Urine 0 SEEN /hpf (<or=2+); Red Blood Cells-Urine 0 SEEN /hpf (0-5); Squamous Epithelial Cells - UA 0 SEEN /hpf (0-5); White Blood Cells 0 SEEN /hpf (0-5)
[2021-05-21 23:58] LABS: Color, Urine Yellow (Yellow); Glucose, Dipstick Normal (Normal); Ketone-Dipstick Negative (Negative); Leukocyte Esterase-Dipstick Negative /ul (Negative); Nitrite-Dipstick Negative (Negative); Occult Blood-Urine Negative /ul (Negative); Protein-Dipstick Negative (Negative); Urine Bilirubin Dipstick Negative (Negative); Urine Clarity Clear (Clear); Urine Urobilinogen 1 mg/dl (Normal); Urine pH 6.5 (5.0 - 8.0)
[2021-05-22] VITALS (14 sets, daily range): BP systolic 112–128; BP diastolic 58–82; PULSE 69–79; RESP 15–18; TEMP 35.8–36.8; O2SAT 96–99; BMI 26.0
[2021-05-22 00:06] LABS: Bacteria 2+ /hpf (None Seen)
[2021-05-22 00:10] LABS: Absolute Lymphocyte Count 1.68 X10^3/uL (0.83-4.51); Absolute Neutrophil Count 2.1 X10^3/uL (2.0-7.7); Basophil# 0.02 X10^3/uL; Basophil% 0.4 % (0-1); Eosinophil# 0.04 X10^3/uL; Eosinophils% 0.9 % (0-5); Hematocrit 33.3 % (40-54); Hemoglobin 12.2 g/dL (13.0-16.5); Lymphocyte # 1.68 X10^3/ul (0.83-4.51); Lymphocyte % 37.7 % (19-41); Mean Corp Hgb Conc 36.6 g/dL (32-36); Mean Corpuscular Hgb 33.8 pg (27.0-32.0); Mean Corpuscular Volume 92.2 fL (80-94); Mean Platelet Vol. 10.4 fl (6.2-12.0); Monocyte# 0.59 X10^3/uL; Monocyte% 13.2 % (0-10); NRBC Flagged by Analyzer 0 % (0-5); Neutrophil # 2.12 X10^3/uL (2.7-7.7); Neutrophil % 47.6 % (47-70); POSITIVE COUNT YES; Platelet Count 53 K/mm3 (150-450); RBC Distribution Width CV 16.1 % (11.6-14.6); RBC Distribution Width SD 54.9 fl (35.1-43.9); Red Blood Count 3.61 M/mm3 (4.6-6.2); White Blood Count 4.5 K/mm3 (4.4-11.0)
[2021-05-22 00:16] LABS: ALB/GLOB Ratio 0.7 RATIO (0.9-2.4); AST(SGOT) 58 U/L (15-37); Alanine Aminotransfer ALT/SGPT 37 U/L (16-61); Albumin, Serum 2.8 g/dL (3.2-5.0); Alkaline Phosphatase 96 U/L (45-117); Anion Gap 6 (5-15); BUN 4 mg/dL (7-18); BUN/Creat Ratio 7.2 RATIO (10-20); Chloride 108 mmol/L (98-107); Creatinine, Serum 0.56 mg/dL (0.70-1.30); EST Glomerular Filtration Rate 160 mL/min (>60); Est Glom Filt Rate - Afr Amer 193 mL/min (>60); Globulin 3.8 g/dL (2.2-4.2); Glucose 103 mg/dL (74-106); Lipase 581 U/L (73-393); Potassium 3.8 mmol/L (3.5-5.1); Protein, Total 6.6 g/dL (6.4-8.2); Sodium Level 141 mmol/L (136-145); Troponin-I HS 8 pg/mL (3.0-78.0)
--- NOTE | 2021-05-22 04:15 | PCM.HP.STD ---
HPI - General General Date of Admission: 05/22/21 HPI Narrative JB ALARCON, is a 60 M who presents with new onset abdominal pain that started today. Pain is down below his belly button and he did have 2-3 episodes of emesis today with streaking blood, and no iwona hematemesis. Vomiting started after he was drinking with a friend. Patient did have 2 tall beers today and says usually he has 3-5 tall beers per week. He is also smoking 1pack/week. Patient states he has chest pain and cough, with some shortness of breath. He is compliant with lactulose. Upon evaluation in the ED the patient didn't have acute findings on his CT - there was small ascites would be expected in his chronic liver disease. Liver enzymes are consistent with mildly elevated AST, due to his alcohol use. There was no choledocholithiasis. CT abdomen noted multiple small and large gallstones in the gallbladder with gallbladder wall thickening and surrounding edema--findings suggestive of a cholecystitis. Case was discussed with surgery regarding concern for cholecystitis and they recommended a HIDA scan. Here he has not had any fevers or a white count. Of note the patient's chart does state a aortic anuerysm, however this is not the case and the patient did have abdominal surgery for large GI bleed in the past (no AAA) Lipase was mildly elevated. CT does not show any signs of pancreatic fat stranding or pancreatitis. Ethyl alcohol level was 208. Urinalysis clear of infection. [facility] Medical History Alcohol use Alcoholic cirrhosis Aortic aneurysm without rupture Arthritis Ascites Cannabis hyperemesis syndrome concurrent with and due to cannabis abuse Chronic anemia Chronic pain Cirrhosis Cirrhosis Cirrhosis Dehydration Diastolic dysfunction Esophageal varices in alcoholic cirrhosis Excessive bleeding Gastric reflux History of alcoholism History of cirrhosis of liver History of esophageal varices History of esophageal varices History of GI bleed Hx of cirrhosis Hypotension Injury of head and neck Liver cirrhosis, alcoholic Marijuana use Near syncope Pancytopenia Pancytopenia Peripheral arterial disease Smoker Thrombocytopenia Thrombocytopenia Varices of esophagus determined by endoscopy Walker as ambulation aid Wears glasses Home Medications ferrous sulfate [iron] 325 mg PO DAILY 03/20/18 [History Last Taken 03/11/20] magnesium oxide 400 mg PO TID 03/12/20 [History Last Taken 03/11/20] potassium chloride 10 meq PO BID 03/12/20 [History Last Taken 03/11/20] trazodone 100 mg PO QHS PRN 12/03/20 [History Last Taken Unknown] furosemide 20 mg PO DAILY 12/04/20 [History Last Taken Unknown] spironolactone 50 mg PO BID 12/04/20 [History Last Taken Unknown] tramadol 50 mg tablet 50 mg PO Q6H PRN #20 tab 12/17/20 [Rx Last Taken Unknown] thiamine HCl (vitamin B1) 100 mg tablet 100 mg PO DAILY #30 tab 12/20/20 [Rx Last Taken Unknown] midodrine 10 mg PO TID 12/27/20 [History Last Taken 01/01/21 09:00] multivitamin 1 tab PO DAILY 12/27/20 [History Last Taken Unknown] meclizine 12.5 mg tablet 12.5 mg PO TID PRN #90 tab 01/25/21 [Rx Last Taken Unknown] promethazine 25 mg PO Q6H PRN PRN #12 tablet 04/11/21 [Rx Last Taken Unknown] lactulose 10 g PO DAILY 05/22/21 [History Last Taken Unknown] pantoprazole 40 mg PO BID 05/22/21 [History Last Taken Unknown] Allergy/AdvReac Type Severity Reaction Status Date / Time No Known Allergies Allergy Verified 05/21/21 22:16 Family History Mother Cancer Father Lupus Surgical History History of esophagogastroduodenoscopy (EGD) History of removal of cyst Social History household members: none Smoking Status: Current every day smoker tobacco type: cigarettes alcohol intake: current alcohol intake frequency: a few times a week substance use type: does not use ROS ROS Narrative 7 point review systems reviewed positive for chest pain and shortness of breath, abdominal pain. He has chronic venous stasis changes. + Insomina other systems negative. Vital Signs Vital Signs Vital Signs: 05/21/21 22:14 05/22/21 01:00 05/22/21 03:00 Temperature 97.2 F L Temperature Source Temporal Pulse Rate 85 Respiratory Rate 16 15 18 Blood Pressure 143/76 H Blood Pressure Mean 98 Pulse Ox 98 Oxygen Delivery Method Room Air Room Air Room Air 05/22/21 03:12 Temperature 96.5 F L Temperature Source Temporal Pulse Rate 79 Respiratory Rate 18 Blood Pressure 114/82 H Blood Pressure Mean 92 Pulse Ox 97 Oxygen Delivery Method Room Air Weight Weight: 185 lb Body Mass Index (BMI) 25.7 Physical Exam Narrative Narrative General Appearance ED: well developed and NAD Nutritional Appearance: well HEENT Moist mucous membranes normocephalic Eyes PERRL Thyroid: Negative for goiter Chest Wall inspection of chest normal and palpation of chest normal Resp normal respiratory effort, no retractions and clear to auscultation bilaterally Auscultation: Negative for rales, rhonchi or wheezes Cardio regular rate, regular rhythm, S1 normal heart sound, S2 normal heart sound and no murmurs GI Extremely tender in lower quadrant, above bladder no fluid not distended. Auscultation: normoactive bowel sounds Palpation: soft; Negative for tender or guarding. No lower extremity edema. no asterixis but there is palmar wasting Results Lab / Micro Data Result Diagrams: 05/21/21 23:40 05/21/21 23:40 Labs: Laboratory Results - last 24 hr 05/21/21 23:40: WBC 4.5, RBC 3.61 L, Hgb 12.2 L, Hct 33.3 L, MCV 92.2, MCH 33.8 H, MCHC 36.6 H, RDW Std Deviation 54.9 H, RDW Coeff of Delilah 16.1 H, Plt Count 53 L, MPV 10.4, Immature Gran % (Auto) 0.200, Neut % (Auto) 47.6, Lymph % (Auto) 37.7, [place] % (Auto) 13.2 H, Eos % (Auto) 0.9, Baso % (Auto) 0.4, Absolute Neuts (auto) 2.1, Absolute Lymphs (auto) 1.68, Nucleated RBC % 0 05/21/21 23:40: Sodium 141, Potassium 3.8, Chloride 108 H, Carbon Dioxide 27.0, Anion Gap 6, BUN 4 L, Creatinine 0.56 L, Estim Creat Clear Calc 149.40, Est GFR (MDRD) Af Amer 193, Est GFR (MDRD) Non-Af 160, BUN/Creatinine Ratio 7.2 L, Glucose 103, Calcium 8.0 L, Total Bilirubin 1.20 H, AST 58 H, ALT 37, Alkaline Phosphatase 96, Troponin I High Sens 8, Total Protein 6.6, Albumin 2.8 L, Globulin 3.8, Albumin/Globulin Ratio 0.7 L, Lipase 581 H 05/21/21 23:40: Ethyl Alcohol 208.0 05/21/21 23:46: Urine Color Yellow, Urine Clarity Clear, Urine pH 6.5, Ur Specific [place] 1.010, Urine Protein Negative, Urine Glucose (UA) Normal, Urine Ketones Negative, Urine Occult Blood Negative, Urine Nitrite Negative, Urine Bilirubin Negative, Urine Urobilinogen 1 H, Ur Leukocyte Esterase Negative, Urine RBC 0 SEEN, Urine WBC 0 SEEN, Ur Squamous Epith Cells 0 SEEN, Urine Bacteria 2+, Urine Mucus 0 SEEN Radiology Impression Abdomen/Pelvis CT 05/22/21 23:32 IMPRESSION: 1. Multiple small and large gallstones in the gallbladder with gallbladder wall thickening and surrounding edema--findings suggestive of a cholecystitis. 2. Prominent multiple varices in the right abdomen right midline abdominal wall with dilatation of the splenic vein arising from the portal venous system. 3. Mild splenomegaly. 4. No pancreatitis or pancreatic mass lesions. 5. Bowel dilatation) 8 mm) of the proximal 3.8 cm of the right ureter with a small adjacent third or fourth order branch from the inferior mesenteric artery causing partial stenosis at that site. 6. Otherwise, normal kidneys without obstructive uropathy. 7. Multiple surgical clips in the appendix region; has this patient had an appendectomy? 8. No diverticulitis, colitis, intestinal obstruction. 9. Heavily calcified abdominal aorta and iliac arteries without evidence of aneurysmal dilatation. Electronically Signed: Coy Houston MD at 1:30 EDT , Assessment & Plan Assessment/Plan (1) History of alcohol abuse: (2) Abdominal pain: (3) Elevated lipase: PLAN: Abdominal pain Cirrhosis from alcohol -Surgery contacted in the ED, recommended HIDA scan without CCK to rule out cholecystitis more definitively. HIDA was ordered & await results. -Patient NPO at this time -Given IV 40 mg ppi at admission, continue oral ppi while admitted assuming he tolerates PO. -Liver enzymes are just above normal reference & does not seem to be in any acute liver failure -Pain control with Tylenol and morphine as needed, Zofran for nausea -Do not suspect constipation is cause at this time, monitor for daily bowel movements -Very little ascites seen on CT. Continue Lasix, aldactone -Patient may be considered for upper endoscopy, this is per primary team -Continue lactulose, home medicine. History of alcohol -Monitor for withdrawals Patient is full code. we discussed this at bedside. The patient's Lovenox Prophylaxis will be held in case there are any future plans for endoscopy. Perry Escamilla Charges/Coding Visit Charges Inpatient E&M: 33737 Subs Hosp L2
--- NOTE | 2021-05-22 04:39 | NM_ITS ---
CLINICAL: 60-year-old male with reported history of abdominal pain. RADIONUCLIDE HEPATOBILIARY SCINTIGRAPHY COMPARISON: CT of the abdomen-pelvis report 05/22/2021 FINDINGS: Following the intravenous administration of 5.9 mCi of 99m Tc Mebrofenin, hepatobiliary images reveal: 1. Relatively delayed, homogeneous radiopharmaceutical concentration is noted by the hepatic parenchyma. The left lobe is prominent in size. No parenchymal defects are identified. 2. Gallbladder activity is identified at approximately 12 minutes post radiopharmaceutical administration. 3. Small intestinal tract is observed at 19 minutes post radiopharmaceutical administration. 4. Washout of the radiopharmaceutical by the hepatic parenchyma appears qualitatively delayed. NM/Hepatobilliary Imaging IMPRESSION: 1. Visualization of the gallbladder within 60 minutes post radiopharmaceutical administration excludes acute cholecystitis with 97% certitude. (Guadalupe et al, Nucl Med Mone [employer] Press pg. 35, 1981). 2. 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 Electronically Signed: Frankie Benton DO at 9:47 EDT ,
[2021-05-22] MEDS: Ondansetron 4 MG/2 ML Vial IV ×2 (05:11→23:59)
--- NOTE | 2021-05-22 07:30 | NURSING ---
Pt to Nuc Med per [facility] for testing
[2021-05-22] MEDS: traMADol 50 MG Tablet PO ×2 (08:56→21:27)
[2021-05-22] MEDS: Pantoprazole Sodium 40 MG Tablet PO ×2 (10:48→21:28)
[2021-05-22] MEDS: Potassium Chloride Oral Tablet 10 MEQ PO ×2 (10:48→16:42)
[2021-05-22] MEDS: Midodrine HCl 5 MG Tablet 10 MG PO ×2 (10:49→16:42)
[2021-05-22] MEDS: Lactulose 20 GM/30 ML UDC 10 GM PO (10:49)
[2021-05-22] MEDS: Multivitamins,Therapeutic Tablet 1 TABLET PO (10:49)
[2021-05-22] MEDS: Spironolactone 50 MG Tablet PO ×2 (10:49→21:28)
[2021-05-22] MEDS: Furosemide 20 MG Tablet PO (10:49)
[2021-05-22] MEDS: Magnesium Chloride 64 MG Delay Rel.Tablet 128 MG PO ×3 (10:49→16:42)
--- NOTE | 2021-05-22 11:15 | CASEMGMT ---
VAL NEGRON assessment: Face to Face with patient for initial transition planning/care coordination assessment. VAL NEGRON introduced self and role at [facility], pt voices understanding and consents to assessment. Pt is lying in bed in no distress on room air. Pt is A/O x4 and answers all questions appropriately. Care providers, pharmacy, and demographics verified. Presentation: Pt c/o abd pain since 1500 and states pain goes into chest Admitting dx: Abd pain PCP: [facility] Specialists: Friend, GI Preferred Pharmacy: [facility] Insurance: [facility] A/B Prescription Benefit: None per pt Living Will/HPOA: Pt does not have LW/HPOA and declines AD info. LNOK: Madison Dillon, Living Arrangements: Pt lives with in apt with elevator access and states no concerns at home. Pt states is independent with ADL's. Transportation: Pt states friend or son drives and states no transportation concerns. DME/HHC: Pt has the following DME: cane, walker, and shower chair. Pt states no need for any further DME. Pt states no hx of HHC but has been to [facility] in past. Pt states no concerns with going home at time of discharge. Pt is on disability. Pt states smokes about a pack of cigarettes weekly and drinks a 'couple beers a couple times/week'. Pt voices no further concerns/needs. CM to follow for any further discharge planning/needs. Advised pt to ask for CM if any further questions/concerns/needs arise, voices understanding. Pt Goal: Home Plan: [place]ON
--- NOTE | 2021-05-22 11:53 | PCM.HOSP.N ---
Documented by User: Kashif GIBSON 05/22/21 11:54 Hospitalist Note Patient is a 60-year-old male who was admitted to [facility] on the morning of 05/22/2021 for evaluation and management of abdominal pain with nausea. HIDA scan obtained based on recommendations of general surgery down in the ED, which was subsequently negative. Awaiting general surgery consultation and input for follow on management. Continue IV fluids and as needed medications. Patient seen by Kashif Parker PA-C, under the supervision of Dr. Riena. Time spent on patient care: 10 minutes. Documented by User: Dr. Nery Reina MD 05/22/21 14:03 Addendum Addendum: Patient seen by Kashif Parker PA-C under my supervision Patient seen and examined. He still complains of abdominal pain. Abdominal pain seems to be mainly generalized. He denies any nausea vomiting no fever or chills. Review of symptoms otherwise negative. CT of the abdomen and pelvis was concerning for acute cholecystitis. He had a HIDA scan today which showed no evidence of acute cholecystitis as there was visualization of the gallbladder. General surgery consulted. General surgery did review patient and thought that the abdominal pain corresponded to his large abdominal wall varices. Per general surgery, patient would not be a surgical candidate in this hospital even if he did have acute cholecystitis. No plans for acute surgical intervention now. We will therefore resume patient's diet. If abdominal pain persists, will consult gastroenterology due to his history of EGDs with esophageal variceal banding due to liver cirrhosis from chronic alcohol abuse. Rest as per Kashif Parker PA-C's note, which I have reviewed and endorsed.
--- NOTE | 2021-05-22 11:56 | EX.PCM.CON.S ---
Assessment & Plan Assessment/Plan (1) Cholelithiasis: (2) Abdominal pain: (3) Intractable nausea and vomiting: (4) Alcoholism: (5) Cirrhosis: (6) Varices of esophagus determined by endoscopy: PLAN: Did review CT abdomen pelvis as well as HIDA scan with the patient. Pt abdominal pain may correspond to his large abdominal wall varices which are in the right lower quadrant to the umbilicus. However these have not been large previously as well. Patient does see Dr. Sheldon for the EGDs/esophageal variceal banding. He states they did discuss possible liver transplant however patient does still drink 5 beers a week thus he would not qualify for liver transplant currently. Patient CT abdomen pelvis and question whether he had cholecystitis. HIDA scan was completed without CCK which showed visualization of the gallbladder ruling out cholecystitis. Also due to patient's cirrhosis and abdominal varices patient would not be a surgical candidate at this hospital would need to have surgery at a tertiary care center if patient were to surgery. No plans for current surgical intervention, okay for diet per primary. d/w PAIGE Doss. Trinidad Mendez M.D. Pager: [phone] [facility] [address] [place] [address], [facility], [address] [place] [address] Office: [phone] HPI Consult Data Date of Consult: 05/22/21 HPI Narrative HPI Narrative: JB ALARCON, is a 60 M who presents to the ER due to lower abdominal pain which started yesterday about 3-4 PM. Patient last ate about noon had a hamburger. Patient also stated he has not eaten about 3 to 4 days and sometimes he does that and will have ensures during the day. Patient states he did have some nausea and vomiting. Patient states his abdominal pain along with nausea vomiting is somewhat improved currently rates his abdominal pain 5/10. Patient CT abdomen pelvis done in ER question whether he could be some cholecystitis as he did have gallstones, large abdominal varices are also seen. HIDA scan was completed without CCK which showed visualization of the gallbladder ruling out acute cholecystitis. Patient's white blood count was within normal limits patient normally has thrombocytopenia platelets were 53 on admission. Patient has had esophageal varices banded several times in the past per patient. Patient states he drinks about 5 beers per week. On admission patient's blood alcohol was 208. [facility] Medical History (Updated 05/22/21 @ 12:[address] Trinidad Mendez MD) Acute upper gastrointestinal bleeding Alcohol use Alcoholic cirrhosis Aortic aneurysm without rupture Arthritis Ascites Cannabis hyperemesis syndrome concurrent with and due to cannabis abuse Chronic anemia Chronic pain Cirrhosis Dehydration Diastolic dysfunction Esophageal varices in alcoholic cirrhosis Excessive bleeding Gastric reflux History of alcoholism History of esophageal varices History of GI bleed Hypotension Injury of head and neck Liver cirrhosis, alcoholic Marijuana use Near syncope Pancytopenia Peripheral arterial disease Severe sepsis with acute organ dysfunction Smoker Spontaneous bacterial peritonitis Thrombocytopenia Varices of esophagus determined by endoscopy Walker as ambulation aid Wears glasses Home Medications ferrous sulfate [iron] 325 mg PO DAILY 03/20/18 [History Last Taken 03/11/20] magnesium oxide 400 mg PO TID 03/12/20 [History Last Taken 03/11/20] potassium chloride 10 meq PO BID 03/12/20 [History Last Taken 03/11/20] trazodone 100 mg PO QHS PRN 12/03/20 [History Last Taken Unknown] furosemide 20 mg PO DAILY 12/04/20 [History Last Taken Unknown] spironolactone 50 mg PO BID 12/04/20 [History Last Taken Unknown] tramadol 50 mg tablet 50 mg PO Q6H PRN #20 tab 12/17/20 [Rx Last Taken Unknown] thiamine HCl (vitamin B1) 100 mg tablet 100 mg PO DAILY #30 tab 12/20/20 [Rx Last Taken Unknown] midodrine 10 mg PO TID 12/27/20 [History Last Taken 01/01/21 09:00] multivitamin 1 tab PO DAILY 12/27/20 [History Last Taken Unknown] meclizine 12.5 mg tablet 12.5 mg PO TID PRN #90 tab 01/25/21 [Rx Last Taken Unknown] promethazine 25 mg PO Q6H PRN PRN #12 tablet 04/11/21 [Rx Last Taken Unknown] lactulose 10 g PO DAILY 05/22/21 [History Last Taken Unknown] pantoprazole 40 mg PO BID 05/22/21 [History Last Taken Unknown] Allergy/AdvReac Type Severity Reaction Status Date / Time No Known Allergies Allergy Verified 05/21/21 22:16 Family History Mother Cancer Father Lupus Surgical History History of esophagogastroduodenoscopy (EGD) History of removal of cyst Social History household members: none Smoking Status: Current every day smoker tobacco type: cigarettes alcohol intake: current alcohol intake frequency: a few times a week substance use type: does not use ROS Constitutional Constitutional: Reports anorexia; Denies chills ENT HEENT: Denies dizziness Cardiovascular Cardiovascular: Denies chest pain Respiratory/Chest Respiratory/Chest: Denies shortness of breath at rest Gastrointestinal Gastrointestinal: Reports abdominal pain, anorexia, nausea and vomiting; Denies constipation, diarrhea, heartburn, hematemesis or melena Genitourinary Genitourinary: Denies burning urination Musculoskeletal Musculoskeletal: Denies joint pain Integumentary Integumentary: Denies rash Neurologic Neurologic: Denies abnormal gait, abnormal hearing, focal weakness or paresthesias Endocrine Endocrinology: Denies palpitations Hematologic/Lymphatic Hematologic/Lymphatic: Reports easy bleeding and easy bruising; Denies anemia Physical Exam Const alert, oriented x3 and no apparent distress HEENT normocephalic and head/scalp atraumatic Resp normal respiratory effort Cardio regular rate GI soft to palpation; Negative for non-distended Palpation: tender RLQ (Right lower quadrant greater than left lower quadrant); Negative for guarding Extremity no clubbing, cyanosis or edema Skin no jaundice Skin Narrative: Ecchymosis to bilateral arms Neuro CN's II-XII intact bilaterally Psych mental status grossly normal Lab / Micro Data Result Diagrams: 05/21/21 23:40 05/21/21 23:40 Labs: Laboratory Results - last 24 hr 05/21/21 23:40: WBC 4.5, RBC 3.61 L, Hgb 12.2 L, Hct 33.3 L, MCV 92.2, MCH 33.8 H, MCHC 36.6 H, RDW Std Deviation 54.9 H, RDW Coeff of Delilah 16.1 H, Plt Count 53 L, MPV 10.4, Immature Gran % (Auto) 0.200, Neut % (Auto) 47.6, Lymph % (Auto) 37.7, [place] % (Auto) 13.2 H, Eos % (Auto) 0.9, Baso % (Auto) 0.4, Absolute Neuts (auto) 2.1, Absolute Lymphs (auto) 1.68, Nucleated RBC % 0 05/21/21 23:40: Sodium 141, Potassium 3.8, Chloride 108 H, Carbon Dioxide 27.0, Anion Gap 6, BUN 4 L, Creatinine 0.56 L, Estim Creat Clear Calc 149.40, Est GFR (MDRD) Af Amer 193, Est GFR (MDRD) Non-Af 160, BUN/Creatinine Ratio 7.2 L, Glucose 103, Calcium 8.0 L, Total Bilirubin 1.20 H, AST 58 H, ALT 37, Alkaline Phosphatase 96, Troponin I High Sens 8, Total Protein 6.6, Albumin 2.8 L, Globulin 3.8, Albumin/Globulin Ratio 0.7 L, Lipase 581 H 05/21/21 23:40: Ethyl Alcohol 208.0 05/21/21 23:46: Urine Color Yellow, Urine Clarity Clear, Urine pH 6.5, Ur Specific [place] 1.010, Urine Protein Negative, Urine Glucose (UA) Normal, Urine Ketones Negative, Urine Occult Blood Negative, Urine Nitrite Negative, Urine Bilirubin Negative, Urine Urobilinogen 1 H, Ur Leukocyte Esterase Negative, Urine RBC 0 SEEN, Urine WBC 0 SEEN, Ur Squamous Epith Cells 0 SEEN, Urine Bacteria 2+, Urine Mucus 0 SEEN Radiology Impression Hepatobiliary Scan Nuclear Medicine 05/22/21 04:39 IMPRESSION: 1. Visualization of the gallbladder within 60 minutes post radiopharmaceutical administration excludes acute cholecystitis with 97% certitude. (Guadalupe et al, Nucl Med [place] pg. 35, 1980). 2. 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 Electronically Signed: Frankie Benton DO at 9:47 EDT , Abdomen/Pelvis CT 05/22/21 23:32 IMPRESSION: 1. Multiple small and large gallstones in the gallbladder with gallbladder wall thickening and surrounding edema--findings suggestive of a cholecystitis. 2. Prominent multiple varices in the right abdomen right midline abdominal wall with dilatation of the splenic vein arising from the portal venous system. 3. Mild splenomegaly. 4. No pancreatitis or pancreatic mass lesions. 5. Bowel dilatation) 8 mm) of the proximal 3.8 cm of the right ureter with a small adjacent third or fourth order branch from the inferior mesenteric artery causing partial stenosis at that site. 6. Otherwise, normal kidneys without obstructive uropathy. 7. Multiple surgical clips in the appendix region; has this patient had an appendectomy? 8. No diverticulitis, colitis, intestinal obstruction. 9. Heavily calcified abdominal aorta and iliac arteries without evidence of aneurysmal dilatation. Electronically Signed: Coy Houston MD at 1:30 EDT ,
--- NOTE | 2021-05-22 23:32 | CT_ITS ---
STUDY: CT ABDOMEN AND PELVIS WITH CONTRAST ENHANCEMENT OF 0033 HOURS ON 05/22/2021 REASON FOR EXAM: -year-old male with abdominal pain. RADIATION DOSAGE (If Supplied By Facility): CTDIvol = ( 14.58 ) mGy, DLP = ( 1008.73 ) mGycm TECHNIQUE: Transaxial images were obtained from the dome of the diaphragm to the symphysis pubis without oral contrast. IV 100mL Isovue-300 was administered. Sagittal and coronal images were reconstructed. Individualized dose optimization techniques were used for this CT. COMPARISON: April 10, 2019. FINDINGS: The visualized lung bases are unremarkable. No cardiomegaly. Normal size liver without defects. Presence of several small and medium sized gallstones in the gallbladder with mild gallbladder wall thickening and mild edematous changes surrounding the gallbladder--cholelithiasis and cholecystitis.. Mild splenomegaly without defects.. Normal pancreas. No pancreatitis or pancreatic mass lesions. There are multiple large varices beneath and and the right and midline anterior abdominal wall that connect with the hepatic portal system--varices. Also dilatation of the splenic vein. Normal bilateral adrenal glands. Normal kidneys without cystic or solid mass lesions or calcification or calculi. There is mild dilatation (8 mm) of the proximal 3.8 cm of the right ureter with a small adjacent third or fourth order artery (from the inferior mesenteric artery) causing partial stenosis at that site. Normal visualized stomach. Normal small intestine. Normal colon. There are several surgical clips in the appendix region and the appendix is not visualized; that this patient had a previous appendectomy?. Heavily calcified abdominal aorta and iliac arteries without evidence of aneurysmal dilatation. Normal inferior vena cava. Normal retroperitoneum. Normal urinary bladder. Normal osseous structures. CT/Abdomen/Pelvis W IV Cont ONLY IMPRESSION: 1. Multiple small and large gallstones in the gallbladder with gallbladder wall thickening and surrounding edema--findings suggestive of a cholecystitis. 2. Prominent multiple varices in the right abdomen right midline abdominal wall with dilatation of the splenic vein arising from the portal venous system. 3. Mild splenomegaly. 4. No pancreatitis or pancreatic mass lesions. 5. Bowel dilatation) 8 mm) of the proximal 3.8 cm of the right ureter with a small adjacent third or fourth order branch from the inferior mesenteric artery causing partial stenosis at that site. 6. Otherwise, normal kidneys without obstructive uropathy. 7. Multiple surgical clips in the appendix region; has this patient had an appendectomy? 8. No diverticulitis, colitis, intestinal obstruction. 9. Heavily calcified abdominal aorta and iliac arteries without evidence of aneurysmal dilatation. Electronically Signed: Coy Houston MD at 1:30 EDT ,
[2021-05-23] MEDS: 0.9% Saline Lock 10 ML Syringe IV
[2021-05-23] MEDS: traZODone 100 MG Tablet PO (00:21)
[2021-05-23 02:27] VITALS: BP 103/48; PULSE 74; RESP 18; TEMP 36.5; O2SAT 97
[2021-05-23 02:59] VITALS: PULSE 66
[2021-05-23 05:29] LABS: Absolute Lymphocyte Count 0.94 X10^3/uL (0.83-4.51); Absolute Neutrophil Count 0.8 X10^3/uL (2.0-7.7); Basophil# 0.01 X10^3/uL; Basophil% 0.4 % (0-1); Eosinophil# 0.05 X10^3/uL; Eosinophils% 2.1 % (0-5); Hematocrit 36.2 % (40-54); Hemoglobin 12.5 g/dL (13.0-16.5); Lymphocyte # 0.94 X10^3/ul (0.83-4.51); Lymphocyte % 40.3 % (19-41); Mean Corp Hgb Conc 34.5 g/dL (32-36); Mean Corpuscular Volume 95.5 fL (80-94); Mean Platelet Vol. 9.8 fl (6.2-12.0); Monocyte# 0.52 X10^3/uL; Monocyte% 22.3 % (0-10); NRBC Flagged by Analyzer 0 % (0-5); Neutrophil # 0.81 X10^3/uL (2.7-7.7); Neutrophil % 34.9 % (47-70); POSITIVE COUNT YES; POSITIVE DIFFERENTIAL YES; Platelet Count 33 K/mm3 (150-450); RBC Distribution Width CV 16.2 % (11.6-14.6); RBC Distribution Width SD 57.4 fl (35.1-43.9); Red Blood Count 3.79 M/mm3 (4.6-6.2); White Blood Count 2.3 K/mm3 (4.4-11.0)
[2021-05-23 05:36] LABS: Differential Indicated SCAN CRITERIA MET
[2021-05-23 05:54] LABS: Anisocytosis 1+; Platelet Estimate MKD DEC (ADEQ)
[2021-05-23 06:02] LABS: Anion Gap 6 (5-15); BUN 6 mg/dL (7-18); BUN/Creat Ratio 10.6 RATIO (10-20); Chloride 106 mmol/L (98-107); Creatinine, Serum 0.57 mg/dL (0.70-1.30); EST Glomerular Filtration Rate 156 mL/min (>60); Est Glom Filt Rate - Afr Amer 189 mL/min (>60); Estimated Creatinine Clearance 146.78 ml/min; Glucose 111 mg/dL (74-106); Potassium 3.7 mmol/L (3.5-5.1); Sodium Level 139 mmol/L (136-145)
[2021-05-23] MEDS: traMADol 50 MG Tablet PO (06:24)
[2021-05-23 07:00] VITALS: PULSE 69
[2021-05-23 08:30] VITALS: BP 121/86; PULSE 81; RESP 16; TEMP 36.8; O2SAT 100
[2021-05-23] MEDS: Potassium Chloride Oral Tablet 10 MEQ PO (08:35)
[2021-05-23] MEDS: Magnesium Chloride 64 MG Delay Rel.Tablet 128 MG PO (08:35)
[2021-05-23] MEDS: Multivitamins,Therapeutic Tablet 1 TABLET PO (08:35)
[2021-05-23] MEDS: Midodrine HCl 5 MG Tablet 10 MG PO (08:36)
[2021-05-23] MEDS: Spironolactone 50 MG Tablet PO (08:36)
[2021-05-23] MEDS: Pantoprazole Sodium 40 MG Tablet PO (08:37)
[2021-05-23] MEDS: Furosemide 20 MG Tablet PO (08:37)
--- NOTE | 2021-05-23 11:28 | CASEMGMT ---
Addendum entered by Florence Potter 05/23/21 12:51: Per Gabriella, pt is agreeable to palliative referral. aNthaniel NEAL CM Original Note: Palliative c/s placed per screening tool and Jens [employer] W[employer] TENDER. Order placed and referral e-mailed to palliative. Nathaniel NEAL CM
--- NOTE | 2021-05-23 12:45 | PCM.DC ---
Discharge Instructions Diet Discharge Diet: Light diet - advance as tolerated Activity Discharge Activity: Return to Normal Activity Dressing / Incision Call your doctor if you observe: Shortness of breath, Dizziness, Chest pain and Uncontrolled pain Follow Up Care Test Results: Test results from this visit will be discussed in further detail at your follow-up appointment, if applicable. Discharge Plan Admission Admit Date/Time: 05/22/21 04:13 Primary Reason for Your Visit: Abdominal pain Attending Provider: Nery Reina Primary Care Provider: Alice Cuellar Consulting Providers: Trinidad Mendez Instructions Additional Instructions / Restrictions: Palliative care referral. Discharge Orders/Prescriptions Prescriptions: Continued tramadol 50 mg tablet 50 mg PO Q6H PRN (Reason: pain) Qty: 20 RF: 0 ferrous sulfate [iron] 325 MG tablet 325 mg PO DAILY RF: 0 potassium chloride 10 MEQ tablet extended release 10 meq PO BID RF: 0 magnesium oxide 400 MG tablet 400 mg PO TID RF: 0 trazodone 100 mg Tablet 100 mg PO QHS PRN (Reason: sleep) RF: 0 furosemide 20 mg tablet 20 mg PO DAILY RF: 0 spironolactone 50 mg tablet 50 mg PO BID RF: 0 multivitamin Tablet 1 tab PO DAILY RF: 0 midodrine 10 mg tablet 10 mg PO TID RF: 0 promethazine 25 MG tablet 25 mg PO Q6H PRN PRN (Reason: Nausea) Qty: 12 RF: 0 pantoprazole 40 mg tablet,delayed release (DR/EC) 40 mg PO BID RF: 0 lactulose 10 gram/15 mL solution 10 g PO DAILY RF: 0 thiamine HCl (vitamin B1) [Vitamin B-1] 100 mg tablet 100 mg PO DAILY Qty: 30 RF: 2 meclizine 12.5 mg tablet 12.5 mg PO TID PRN (Reason: dizziness) Qty: 90 RF: 2 Referrals / Follow Up: Alice Cuellar DO [Primary Care Provider] - In 1 Week FriendHugo DO [STAFF PHYSICIAN] - See Referral Note (As scheduled ) Disposition Disposition (needs filled in before D/C Order can be placed): Home, Self Care
--- NOTE | 2021-05-23 12:52 | PCM.DC.SUM ---
Documented by User: Viola Ndiaye NP, [employer]OADCAST ENGINEER-C 05/23/21 13:04 Providers Date of Admission: 05/22/21 Date of Discharge: 05/23/21 Primary Care Physician: Dr. Alice Cuellar, Consultations 05/22/21 11:36 Consult: General Surgery Routine Consulting Provider: Trinidad Mendez Reason for Consult: Choledocholithiasis EMERGENT Consult: No MD Notified: Yes Date Notified: 05/22/21 Time Notified: 11:36 Method of Notification: Provider Initiated Reason For Visit: ABDOMINAL PAIN Diagnosis Discharge Diagnosis (1) Cholelithiasis: Status: Acute Code(s): K80.20 - Calculus of gallbladder without cholecystitis without obstruction (2) Abdominal pain: Status: Acute Code(s): R10.9 - Unspecified abdominal pain (3) Intractable nausea and vomiting: Status: Acute Code(s): R11.2 - Nausea with vomiting, unspecified (4) Alcoholism: Status: Acute Code(s): F10.20 - Alcohol dependence, uncomplicated (5) Cirrhosis: Status: Acute Code(s): K74.60 - Unspecified cirrhosis of liver (6) Varices of esophagus determined by endoscopy: Status: Acute Code(s): I85.00 - Esophageal varices without bleeding Medications at Discharge Home Medications ferrous sulfate [iron] 325 mg PO DAILY 03/20/18 magnesium oxide 400 mg PO TID 03/12/20 potassium chloride 10 meq PO BID 03/12/20 trazodone 100 mg PO QHS PRN 12/03/20 furosemide 20 mg PO DAILY 12/04/20 spironolactone 50 mg PO BID 12/04/20 tramadol 50 mg tablet 50 mg PO Q6H PRN #20 tab 12/17/20 thiamine HCl (vitamin B1) 100 mg tablet 100 mg PO DAILY #30 tab 12/20/20 midodrine 10 mg PO TID 12/27/20 multivitamin 1 tab PO DAILY 12/27/20 meclizine 12.5 mg tablet 12.5 mg PO TID PRN #90 tab 01/25/21 promethazine 25 mg PO Q6H PRN PRN #12 tablet 04/11/21 lactulose 10 g PO DAILY 05/22/21 pantoprazole 40 mg PO BID 05/22/21 Hospital Course Operations None Procedures None Summary of Care Provided Hospital Course: Patient is a 60-year-old male admitted 05/22/2021 due to abdominal pain. 1. Intractable abdominal pain, nausea and vomiting-cholecystitis ruled out. Possibly related to chronic cannabis use versus large abdominal wall varices. General surgery consulted on admission. CT abdomen with gallstones. HIDA scan negative for cholecystitis. Patient reports chronic abdominal pain. Refer to palliative care for chronic pain/symptom management. Continue follow-up with GI as well. Follow-up with PCP in 1 week. 2. 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 Continue spironolactone, Lasix, lactulose. 3. Alcohol abuse-continues to use alcohol despite cirrhosis and associated complications. Advised cessation. 4. Chronic anemia/pancytopenia/iron deficiency anemia-stable. 5. GERD-continue PPI. 6. Tobacco dependence-encouraged cessation. Patient seen and examined prior to discharge. Physical assessment as noted below. Patient is stable for discharge with follow up recommendations as noted above. This patient was seen by CHRISTINA Shine under the supervision of Dr. Reina. Time spent examining patient, reviewing data and subsequent management of care: 15 Minutes Physical Exam Const alert, oriented x3 and no apparent distress Orientation / Consciousness: awake, oriented to person, oriented to place and oriented to time HEENT normocephalic and moist oral mucous membranes Eyes PERRL, EOMs intact bilaterally and conjunctivae normal Neck no lymphadenopathy Resp normal respiratory effort and clear to auscultation bilaterally Cardio regular rate, regular rhythm and no murmurs Peripheral Pulses: pulses 2+ throughout GI normal to inspection, nondistended, normoactive bowel sounds and non-distended Palpation: tender Extremity normal to inspection Skin no rashes or lesions noted Lesions: no lesions Rashes: no rashes Trauma: no lacerations or abrasions Neuro CN's II-XII intact bilaterally, no focal motor deficits, no sensory deficits noted and deep tendon reflexes 2+ bilaterally Psych mental status grossly normal and affect normal Weight / BMI Weight Weight: 186 lb 4.65 oz Body Mass Index (BMI) 26.0 ABG / Lab / Microbiology Data Result Diagrams: 05/23/21 05:10 05/23/21 05:10 Laboratory: Laboratory Results - last 24 hr 05/23/21 05:10: WBC 2.3 L, RBC 3.79 L, Hgb 12.5 L, Hct 36.2 L, MCV 95.5 H, MCH 33.0 H, MCHC 34.5 D, RDW Std Deviation 57.4 H, RDW Coeff of Delilah 16.2 H, Plt Count 33 L*, MPV 9.8, Immature Gran % (Auto) 0.000, Neut % (Auto) 34.9 L, Lymph % (Auto) 40.3, [place] % (Auto) 22.3 H, Eos % (Auto) 2.1, Baso % (Auto) 0.4, Absolute Neuts (auto) 0.8 L, Absolute Lymphs (auto) 0.94, Nucleated RBC % 0, Diff Path Review June foll, Platelet Estimate MKD DEC, Anisocytosis 1+ 05/23/21 05:10: Sodium 139, Potassium 3.7, Chloride 106, Carbon Dioxide 27.0, Anion Gap 6, BUN 6 L, Creatinine 0.57 L, Estim Creat Clear Calc 146.78, Est GFR (MDRD) Af Amer 189, Est GFR (MDRD) Non-Af 156, BUN/Creatinine Ratio 10.6, Glucose 111 H, Calcium 8.0 L D/C Instructions Discharge Diet: Light diet - advance as tolerated Call your doctor if you observe: Shortness of breath, Dizziness, Chest pain and Uncontrolled pain Meaningful Use Info Meaningful Use Diagnoses (Choose all that apply): None applicable Discharge Plan Admission Admit Date/Time: 05/22/21 04:13 Primary Reason for Your Visit: Abdominal pain Attending Provider: Nery Reina Primary Care Provider: Alice Cuellar Consulting Providers: Trinidad Mendez Instructions Additional Instructions / Restrictions: Palliative care referral. Discharge Orders/Prescriptions Prescriptions: Continued tramadol 50 mg tablet 50 mg PO Q6H PRN (Reason: pain) Qty: 20 RF: 0 ferrous sulfate [iron] 325 MG tablet 325 mg PO DAILY RF: 0 potassium chloride 10 MEQ tablet extended release 10 meq PO BID RF: 0 magnesium oxide 400 MG tablet 400 mg PO TID RF: 0 trazodone 100 mg Tablet 100 mg PO QHS PRN (Reason: sleep) RF: 0 furosemide 20 mg tablet 20 mg PO DAILY RF: 0 spironolactone 50 mg tablet 50 mg PO BID RF: 0 multivitamin Tablet 1 tab PO DAILY RF: 0 midodrine 10 mg tablet 10 mg PO TID RF: 0 promethazine 25 MG tablet 25 mg PO Q6H PRN PRN (Reason: Nausea) Qty: 12 RF: 0 pantoprazole 40 mg tablet,delayed release (DR/EC) 40 mg PO BID RF: 0 lactulose 10 gram/15 mL solution 10 g PO DAILY RF: 0 thiamine HCl (vitamin B1) [Vitamin B-1] 100 mg tablet 100 mg PO DAILY Qty: 30 RF: 2 meclizine 12.5 mg tablet 12.5 mg PO TID PRN (Reason: dizziness) Qty: 90 RF: 2 Referrals / Follow Up: Alice Cuellar DO [Primary Care Provider] - 05/29/21 9:40 am FriendHugo DO [STAFF PHYSICIAN] - 06/28/21 1:00 pm (As scheduled ) Disposition Disposition (needs filled in before D/C Order can be placed): Home, Self Care Documented by User: Dr. Nery Reina MD 05/23/21 18:23 Providers Date of Admission: 05/22/21 Reason For Visit: ABDOMINAL PAIN Medications at Discharge Home Medications ferrous sulfate [iron] 325 mg PO DAILY 03/20/18 magnesium oxide 400 mg PO TID 03/12/20 potassium chloride 10 meq PO BID 03/12/20 trazodone 100 mg PO QHS PRN 12/03/20 furosemide 20 mg PO DAILY 12/04/20 spironolactone 50 mg PO BID 12/04/20 tramadol 50 mg tablet 50 mg PO Q6H PRN #20 tab 12/17/20 thiamine HCl (vitamin B1) 100 mg tablet 100 mg PO DAILY #30 tab 12/20/20 midodrine 10 mg PO TID 12/27/20 multivitamin 1 tab PO DAILY 12/27/20 meclizine 12.5 mg tablet 12.5 mg PO TID PRN #90 tab 01/25/21 promethazine 25 mg PO Q6H PRN PRN #12 tablet 04/11/21 lactulose 10 g PO DAILY 05/22/21 pantoprazole 40 mg PO BID 05/22/21 ABG / Lab / Microbiology Data Result Diagrams: 05/23/21 05:10 05/23/21 05:10 Discharge Plan Admission Admit Date/Time: 05/22/21 04:13 Primary Reason for Your Visit: Abdominal pain Attending Provider: Nery Reina Primary Care Provider: Alice Cuellar Consulting Providers: Trinidad Mendez Instructions Additional Instructions / Restrictions: Palliative care referral. Discharge Orders/Prescriptions Prescriptions: Continued tramadol 50 mg tablet 50 mg PO Q6H PRN (Reason: pain) Qty: 20 RF: 0 ferrous sulfate [iron] 325 MG tablet 325 mg PO DAILY RF: 0 potassium chloride 10 MEQ tablet extended release 10 meq PO BID RF: 0 magnesium oxide 400 MG tablet 400 mg PO TID RF: 0 trazodone 100 mg Tablet 100 mg PO QHS PRN (Reason: sleep) RF: 0 furosemide 20 mg tablet 20 mg PO DAILY RF: 0 spironolactone 50 mg tablet 50 mg PO BID RF: 0 multivitamin Tablet 1 tab PO DAILY RF: 0 midodrine 10 mg tablet 10 mg PO TID RF: 0 promethazine 25 MG tablet 25 mg PO Q6H PRN PRN (Reason: Nausea) Qty: 12 RF: 0 pantoprazole 40 mg tablet,delayed release (DR/EC) 40 mg PO BID RF: 0 lactulose 10 gram/15 mL solution 10 g PO DAILY RF: 0 thiamine HCl (vitamin B1) [Vitamin B-1] 100 mg tablet 100 mg PO DAILY Qty: 30 RF: 2 meclizine 12.5 mg tablet 12.5 mg PO TID PRN (Reason: dizziness) Qty: 90 RF: 2 Referrals / Follow Up: Alice Cuellar DO [Primary Care Provider] - 05/29/21 9:40 am FriendHugo DO [STAFF PHYSICIAN] - 06/28/21 1:00 pm (As scheduled ) Disposition Disposition (needs filled in before D/C Order can be placed): Home, Self Care Charges/Coding Addendum Addendum: Patient seen by Viola VASQUEZ under my supervision Patient is a 60-year-old male with a past medical history as outlined was admitted with a complaint of abdominal pain which started after he had some beer on the day of admission. He had 2-3 episodes of emesis with some blood from hematemesis. Patient had a history of drinking alcohol and states he drank about 3-5 beers weekly and also smoked a pack of cigarettes weekly. CT of the abdomen and pelvis showed small and large gallstones in the gallbladder with gallbladder wall thickening and surrounding erythema findings suggestive of cholecystitis. She was admitted to be managed for probable cholecystitis. Lipase was mildly elevated and serum alcohol level was 2 8. He was admitted and managed for level cholecystitis. Surgery recommended HIDA scan which showed visualization of the gallbladder therefore ruling out acute cholecystitis. Surgery opted for conservative management. He was started on a diet which he tolerated. Abdominal pain improved slightly though patient said it was chronic. My suspicion was that he likely had chronic pancreatitis from chronic alcohol use. Patient remained stable and was discharged on 05/23/2021 to follow-up with gastroenterology on outpatient basis and was also referred to palliative care for chronic pain management. Patient was seen and examined prior to discharge. His abdominal pain had improved however still present. He denied any fever, chills, nausea vomiting or diarrhea. He has been able to tolerate a diet. Review of stents otherwise negative. Labs and vitals reviewed. Home medication reviewed and reconciled. O/E: Const alert, oriented x3 and no apparent distress Orientation / Consciousness: awake, oriented to person, oriented to place and oriented to time HEENT normocephalic and moist oral mucous membranes Eyes PERRL, EOMs intact bilaterally and conjunctivae normal Neck no lymphadenopathy Resp normal respiratory effort and clear to auscultation bilaterally Cardio regular rate, regular rhythm and no murmurs Peripheral Pulses: pulses 2+ throughout GI normal to inspection, nondistended, normoactive bowel sounds, minimal generalised tenderness, no guarding or rebound tenderness Palpation: tender Extremity normal to inspection Skin no rashes or lesions noted Lesions: no lesions Rashes: no rashes Trauma: no lacerations or abrasions Neuro CN's II-XII intact bilaterally, no focal motor deficits, no sensory deficits noted and deep tendon reflexes 2+ bilaterally Psych mental status grossly normal and affect normal Plan is for discharge home today. Rest as per CHRISTINA Shine's note, which I have reviewed and endorsed. Total time I spent on discharge today is 30 mins with Viola Ndiaye NP-C spending 15 mins making a total of 45 mins. Visit Charges Inpatient E&M: [id number] Disch Hosp
--- NOTE | 2021-05-23 13:08 | CASEMGMT ---
Pt provided with [facility] van transport info and also states may need a ride home with them today. Km, [employer] departmental secretary, aware to arrange ride. Pt voices no further questions/concerns/needs at discharge. Pt declines need for any further therapy. Pt is aware that palliative will f/u with him once home, voices understanding. Nathaniel NEAL CM
[2021-05-23 13:45] VITALS: BP 138/80; PULSE 18; RESP 18; TEMP 36.9; O2SAT 100
[2021-05-24 11:44] LABS: Pathologist Review Reviewed
== END 2021-05-23 14:00 | disposition home or self-care (01) | DRG 445 ==
LOC: ED 05-22 03:02 → PCU 05-22 03:44
PROVIDERS: Admitting Provider Hospitalist; Emergency Provider Emergency Medicine; PCP Family Medicine; Visit Provider Student in an Organized Health Care Education/Training Program
DX: K80.20 Calculus of gallbladder without cholecystitis without obstruction (principal); I85.00 Esophageal varices without bleeding; D61.818 Other pancytopenia; K92.0 Hematemesis; K86.1 Other chronic pancreatitis; D69.6 Thrombocytopenia, unspecified; K70.31 Alcoholic cirrhosis of liver with ascites; I71.9 Aortic aneurysm of unspecified site, without rupture; F10.20 Alcohol dependence, uncomplicated; F17.210 Nicotine dependence, cigarettes, uncomplicated; D50.9 Iron deficiency anemia, unspecified; K82.8 Other specified diseases of gallbladder; K21.9 Gastro-esophageal reflux disease without esophagitis; Y90.7 Blood alcohol level of 200-239 mg/100 ml
CPT/HCPCS: 36415; 74177; 78226; 80048; 80053; 81001; 82077; 83690; 84484; 85025; 93005; 97802; 99284; 99406; A9537; Q9967; A4216; J2405; J3490

== ENCOUNTER 2021-05-24 02:31 | Emergency (ER) | payer MEDICARE, SELFPAY ==
[2021-05-24 02:33] VITALS: BP 135/89; PULSE 105; RESP 14; TEMP 37.2; O2SAT 99; BMI 25.7
[2021-05-24] MEDS: Ondansetron 4 MG/2 ML Vial IV (03:01)
[2021-05-24] MEDS: 0.9% Normal Saline 1,000 ML 1000 ML IV (03:01)
[2021-05-24] MEDS: Morphine 4 MG/ML Syringe IV (03:01)
[2021-05-24 03:34] LABS: Absolute Lymphocyte Count 0.73 X10^3/uL (0.83-4.51); Absolute Neutrophil Count 1.8 X10^3/uL (2.0-7.7); Basophil# 0.01 X10^3/uL; Basophil% 0.3 % (0-1); Eosinophil# 0.02 X10^3/uL; Eosinophils% 0.7 % (0-5); Hematocrit 38.6 % (40-54); Hemoglobin 12.9 g/dL (13.0-16.5); Lymphocyte # 0.73 X10^3/ul (0.83-4.51); Lymphocyte % 24.7 % (19-41); Mean Corp Hgb Conc 33.4 g/dL (32-36); Mean Corpuscular Hgb 31.8 pg (27.0-32.0); Mean Corpuscular Volume 95.1 fL (80-94); Mean Platelet Vol. 10.9 fl (6.2-12.0); Monocyte# 0.45 X10^3/uL; Monocyte% 15.2 % (0-10); NRBC Flagged by Analyzer 0 % (0-5); Neutrophil # 1.75 X10^3/uL (2.7-7.7); Neutrophil % 59.1 % (47-70); POSITIVE COUNT YES; Platelet Count 46 K/mm3 (150-450); RBC Distribution Width CV 16.3 % (11.6-14.6); RBC Distribution Width SD 57.3 fl (35.1-43.9); Red Blood Count 4.06 M/mm3 (4.6-6.2)
--- NOTE | 2021-05-24 03:43 | EDS_ITS ---
HPI HPI - GI History of Present Illness Chief Complaint: Abd Pain Informant: patient Narrative Narrative: Patient brought in by EMS for worsening abdominal pain nausea and vomiting this evening. Patient discharged yesterday from the hospital. History of alcoholic cirrhosis. He states he was discharged yesterday afternoon he was helping his brother with fixing his car, he had 2 beers states he when he got home later increasing pain nausea and vomiting. No hematemesis. No diarrhea. Evaluation of his admission initially had concerns for cholecystitis on CT. Was admitted with surgery consult. HIDA scan performed negative for cholecystitis, he was treated symptomatically conservatively. Discharge had concerns for chronic pancreatitis causing his symptoms. Also concerns for marijuana use likely causes nausea and vomiting and abdominal pain. He is followed by GI Dr. Sheldon. Prior similar symptoms: Yes PFSH [facility] Medical History Acute upper gastrointestinal bleeding Alcohol use Alcoholic cirrhosis Aortic aneurysm without rupture Arthritis Ascites Cannabis hyperemesis syndrome concurrent with and due to cannabis abuse Chronic anemia Chronic pain Cirrhosis Dehydration Diastolic dysfunction Esophageal varices in alcoholic cirrhosis Excessive bleeding Gastric reflux History of alcoholism History of esophageal varices History of GI bleed Hypotension Injury of head and neck Liver cirrhosis, alcoholic Marijuana use Near syncope Pancytopenia Peripheral arterial disease Severe sepsis with acute organ dysfunction Smoker Spontaneous bacterial peritonitis Thrombocytopenia Varices of esophagus determined by endoscopy Walker as ambulation aid Wears glasses Home Medications ferrous sulfate [iron] 325 mg PO DAILY 03/20/18 [History Last Taken 03/11/20] magnesium oxide 400 mg PO TID 03/12/20 [History Last Taken 03/11/20] potassium chloride 10 meq PO BID 03/12/20 [History Last Taken 03/11/20] trazodone 100 mg PO QHS PRN 12/03/20 [History Last Taken Unknown] furosemide 20 mg PO DAILY 12/04/20 [History Last Taken Unknown] spironolactone 50 mg PO BID 12/04/20 [History Last Taken Unknown] tramadol 50 mg tablet 50 mg PO Q6H PRN #20 tab 12/17/20 [Rx Last Taken Unknown] thiamine HCl (vitamin B1) 100 mg tablet 100 mg PO DAILY #30 tab 12/20/20 [Rx Last Taken Unknown] midodrine 10 mg PO TID 12/27/20 [History Last Taken 01/01/21 09:00] multivitamin 1 tab PO DAILY 10/28/21 [History Last Taken Unknown] meclizine 12.5 mg tablet 12.5 mg PO TID PRN #90 tab 01/25/21 [Rx Last Taken Unknown] promethazine 25 mg PO Q6H PRN PRN #12 tablet 04/11/21 [Rx Last Taken Unknown] lactulose 10 g PO DAILY 05/22/21 [History Last Taken Unknown] pantoprazole 40 mg PO BID 05/22/21 [History Last Taken Unknown] ondansetron 4 mg PO Q6H PRN #10 tab 05/24/21 [Rx Last Taken Unknown] Allergy/AdvReac Type Severity Reaction Status Date / Time No Known Allergies Allergy Verified 05/21/21 22:16 Family History Mother Cancer Father Lupus Surgical History History of esophagogastroduodenoscopy (EGD) History of removal of cyst Social History household members: none Smoking Status: Current every day smoker tobacco type: cigarettes alcohol intake: current alcohol intake frequency: a few times a week substance use type: does not use ROS ROS ED Constitutional Constitutional ED: Denies chills, fever(s) or sweats Eyes Eyes: Denies change in vision ENT ENT ED: Denies dysphagia or sore throat Cardiovascular Cardiovascular: Denies chest pain, leg edema, palpitations or racing heartbeat Respiratory/Chest Respiratory/Chest: Denies cough, dyspnea or dyspnea on exertion Gastrointestinal Gastrointestinal: Reports abdominal pain, nausea and vomiting; Denies diarrhea Genitourinary Genitourinary ED: Denies dysuria, hematuria or urinary frequency Musculoskeletal Musculoskeletal: Denies back pain, extremity pain or neck pain Integumentary Denies rash or wounds Neurologic Neurologic: Denies headache(s), paresthesias or weakness EXAM Physical Exam Const Vital Signs: 05/24/21 02:33 05/24/21 04:48 Temperature 98.9 F Temperature Source Temporal Pulse Rate 105 H 81 Respiratory Rate 14 18 Blood Pressure 135/89 H 140/69 H Blood Pressure Mean 104 92 Pulse Ox 99 98 Oxygen Delivery Method Room Air Room Air Positive unkempt Constitutional Narrative: Nontoxic General Appearance ED: unkempt HEENT Reports moist mucous membranes normocephalic and atraumatic Eyes PERRL, EOMs intact bilaterally and conjunctivae normal General Eye ED: Yes normal appearance of both eyes Neck no lymphadenopathy and supple General: Negative for tenderness Chest Wall Chest: Negative for tenderness Resp normal respiratory effort and normal air movement Effort and Inspection: symmetric chest movement; Negative for respiratory distress Cardio regular rate, regular rhythm and no murmurs Peripheral Pulses: pulses 2+ throughout GI normal to inspection, nondistended, normoactive bowel sounds GI Narrative: Generalized abdominal pain. Palpation: Negative for guarding or rebound tenderness present Back/Spine no CVA tenderness and no thoracic nor lumbar tenderness Extremity normal to inspection General Extremety ED: Negative for edema or tenderness General Extremity: Negative for edema Neuro oriented x3 and no sensory deficits noted Sensorium / Orientation: awake and alert Psych Appearance: unkempt Skin no rashes or lesions noted and no wounds MDM MDM MDM Narrative Medical decision making narrative: Patient generalized tenderness. History of alcohol abuse, concerns for previous chronic pancreatitis. Multiple images here recently, gallbladder has been ruled out. I did check labs white count 3 hemoglobin 12.9 platelets chronic low at 46 actually higher than his recent 1. There is no bleeding concerns at this time. Lipase normal at 326. AST 76 ALT 44 total bili 1.1. Creatinine 0.76. He was initially treated with morphine Zofran IV fluids. Reevaluation patient recurrent emesis. Further discussion from discharge summary concerns for marijuana induced hyperemesis I discussed with patient he did state he smoked marijuana also with a 2 beers. Will monitor, will give IV Reglan will reevaluate. 0600: Multiple evaluations there is no emesis however states he still feeling nauseated. He did report that occasionally take hot showers that would help. Capsaicin cream ordered and placed on his abdomen. abdomen soft on re-exam. Discussed abstinence from alcohol and marijuana as they may cause his symptoms. 0630: Improvement with cream, patient actually had a smile on reexamination. There is been no emesis. Cream was sent home with the patient. Encouraged abstinence with the patient and he understands. He will follow-up with GI Dr. Sheldon. Additional prescription for antiemetics sent to his pharmacy. Lab Data Attestation: I reviewed the patient's lab results. Labs: Laboratory Results - last 24 hr 05/24/21 05/24/21 02:45 02:45 WBC 3.0 L RBC 4.06 L Hgb 12.9 L Hct 38.6 L MCV 95.1 H MCH 31.8 MCHC 33.4 RDW Std Deviation 57.3 H RDW Coeff of Delilah 16.3 H Plt Count 46 L* MPV 10.9 Immature Gran % (Auto) 0.000 Neut % (Auto) 59.1 Lymph % (Auto) 24.7 Hartley % (Auto) 15.2 H Eos % (Auto) 0.7 Baso % (Auto) 0.3 Absolute Neuts (auto) 1.8 L Absolute Lymphs (auto) 0.73 L Nucleated RBC % 0 Diff Path Review May foll Platelet Estimate MKD DEC Anisocytosis 1+ Sodium 138 Potassium 3.7 Chloride 105 Carbon Dioxide 22.0 Anion Gap 11 BUN 6 L Creatinine 0.76 Estim Creat Clear Calc 110.09 Est GFR (MDRD) Af Amer 135 Est GFR (MDRD) Non-Af 112 BUN/Creatinine Ratio 7.9 L Glucose 149 H Calcium 8.5 Total Bilirubin 1.10 H Direct Bilirubin 0.54 H AST 76 H ALT 44 Alkaline Phosphatase 116 Total Protein 7.4 Albumin 3.3 Globulin 4.1 Lipase 326 Discharge Plan Triage Chief Complaint: Abd Pain ED Provider: Salomon Radford Dx/Rx/DC Orders Clinical Impression: Thrombocytopenia, Nausea and vomiting, Alcoholic cirrhosis of liver, History of marijuana use Instructions: Understanding Cirrhosis, Understanding Marijuana Abuse, ED Diet for Vomiting or ... Prescriptions: New ondansetron 4 mg tablet,disintegrating 4 mg PO Q6H PRN (Reason: nausea and vomiting) Qty: 10 RF: 0 No Action tramadol 50 mg tablet 50 mg PO Q6H PRN (Reason: pain) Qty: 20 RF: 0 ferrous sulfate [iron] 325 MG tablet 325 mg PO DAILY RF: 0 potassium chloride 10 MEQ tablet extended release 10 meq PO BID RF: 0 magnesium oxide 400 MG tablet 400 mg PO TID RF: 0 trazodone 100 mg Tablet 100 mg PO QHS PRN (Reason: sleep) RF: 0 furosemide 20 mg tablet 20 mg PO DAILY RF: 0 spironolactone 50 mg tablet 50 mg PO BID RF: 0 multivitamin Tablet 1 tab PO DAILY RF: 0 midodrine 10 mg tablet 10 mg PO TID RF: 0 promethazine 25 MG tablet 25 mg PO Q6H PRN PRN (Reason: Nausea) Qty: 12 RF: 0 pantoprazole 40 mg tablet,delayed release (DR/EC) 40 mg PO BID RF: 0 lactulose 10 gram/15 mL solution 10 g PO DAILY RF: 0 thiamine HCl (vitamin B1) [Vitamin B-1] 100 mg tablet 100 mg PO DAILY Qty: 30 RF: 2 meclizine 12.5 mg tablet 12.5 mg PO TID PRN (Reason: dizziness) Qty: 90 RF: 2 Primary Care Provider: Alice Cuellar Referrals: Alice Cuellar DO [Primary Care Provider] - Hugo Sheldon DO [STAFF PHYSICIAN] - 3-5 Days Activity Restrictions/Additional Instructions: Refrain from alcohol and marijuana use. Your labs are stable. Jennifer sent to your pharmacy to use as needed. Follow-up with Dr. Sheldon. Disposition Disposition: Home, Self Care
[2021-05-24 03:45] LABS: Differential Indicated SCAN CRITERIA MET
[2021-05-24 03:46] LABS: AST(SGOT) 76 U/L (15-37); Alanine Aminotransfer ALT/SGPT 44 U/L (16-61); Albumin, Serum 3.3 g/dL (3.2-5.0); Alkaline Phosphatase 116 U/L (45-117); Anion Gap 11 (5-15); BUN 6 mg/dL (7-18); BUN/Creat Ratio 7.9 RATIO (10-20); Bilirubin, Direct 0.54 mg/dL (0.00-0.30); Calcium,Total 8.5 mg/dL (8.5-10.1); Chloride 105 mmol/L (98-107); Creatinine, Serum 0.76 mg/dL (0.70-1.30); EST Glomerular Filtration Rate 112 mL/min (>60); Est Glom Filt Rate - Afr Amer 135 mL/min (>60); Estimated Creatinine Clearance 110.09 ml/min; Globulin 4.1 g/dL (2.2-4.2); Glucose 149 mg/dL (74-106); Lipase 326 U/L (73-393); Potassium 3.7 mmol/L (3.5-5.1); Protein, Total 7.4 g/dL (6.4-8.2); Sodium Level 138 mmol/L (136-145)
[2021-05-24 03:51] LABS: Anisocytosis 1+; Platelet Estimate MKD DEC (ADEQ)
[2021-05-24] MEDS: Metoclopramide 10 MG/2 ML Vial 5 MG IV (04:42)
[2021-05-24 04:48] VITALS: BP 140/69; PULSE 81; RESP 18; O2SAT 98
[2021-05-24] MEDS: Capsaicin 0.025% 1 APPLIC Tube TOPICAL (05:53)
[2021-05-24 06:45] VITALS: BP 108/53; PULSE 85; RESP 18; O2SAT 98
[2021-05-24 07:02] VITALS: BP 134/76; PULSE 72; RESP 15; O2SAT 96
[2021-05-24 12:23] LABS: Pathologist Review Reviewed
== END 2021-05-24 07:03 | disposition home or self-care (01) ==
PROVIDERS: Emergency Provider Emergency Medicine; PCP Family Medicine; Visit Provider Emergency Medicine
DX: K70.30 Alcoholic cirrhosis of liver without ascites (principal); D69.6 Thrombocytopenia, unspecified; R11.2 Nausea with vomiting, unspecified; F17.210 Nicotine dependence, cigarettes, uncomplicated
CPT/HCPCS: 80048; 80076; 83690; 85025; 96361; 96374; 96375; 99284; J7030; A4216; J2405

== ENCOUNTER 2021-06-05 20:09 | Emergency (ER) | payer MEDICARE, MEDICAID, SELFPAY ==
[2021-06-05 20:09] VITALS: BP 129/71; PULSE 112; RESP 18; TEMP 36.2; O2SAT 96; BMI 25.1
--- NOTE | 2021-06-05 22:04 | CT_ITS ---
STUDY: CT BRAIN WITHOUT CONTRAST REASON FOR EXAM: Male, 60 years old. head injury RADIATION DOSAGE (If Supplied By Facility): CTDIvol = ( 44.99 ) mGy, DLP = ( 812.98 ) mGycm TECHNIQUE: Transaxial CT imaging of the brain was performed without administration of intravenous contrast material. Individualized dose optimization techniques were used for this CT. COMPARISON: CT head 04/16/2020. Images and report. FINDINGS: BRAIN: No acute bleed. No edema. Mild decreased attenuation in the periventricular white matter bilaterally. Vieira-white matter differentiation is maintained. Arterial calcifications. VENTRICLES AND SULCI: Not dilated. EXTRA-AXIAL: No hemorrhage, fluid collection, or mass. CALVARIUM / SKULL BASE: Unremarkable. FACE/SINUSES: Unremarkable. SOFT TISSUES: Unremarkable. CT/Brain/Head without Contrast IMPRESSION: No acute abnormalities. Mild chronic microvascular ischemic disease. Electronically Signed: Mindy Gupta MD at 23:02 EDT ,
--- NOTE | 2021-06-05 22:05 | EDS_ITS ---
HPI History of Present Illness Chief Complaint: Syncope Narrative Narrative: [id number] male presenting with after a fall. Patient at baseline has walking issues and was walking with his walker and fell to the floor hitting his head. He states he did not lose consciousness. He has chronic dizziness. He is chronically weak. He has a history of cirrhosis and pancytopenia. he has a history of alcoholism. Patient states that when he fell he sustained a superficial skin tear to the left forearm. He does not have significant pain. Patient denies injury elsewhere. [facility] Medical History Abdominal pain Acute upper gastrointestinal bleeding Alcohol use Alcoholic cirrhosis Alcoholism Aortic aneurysm without rupture Arthritis Ascites Cannabis hyperemesis syndrome concurrent with and due to cannabis abuse Chronic anemia Chronic pain Cirrhosis Dehydration Diastolic dysfunction Esophageal varices in alcoholic cirrhosis Excessive bleeding Gastric reflux History of alcoholism History of esophageal varices History of GI bleed Hypotension Injury of head and neck Liver cirrhosis, alcoholic Marijuana use Near syncope Pancytopenia Peripheral arterial disease Severe sepsis with acute organ dysfunction Smoker Spontaneous bacterial peritonitis Thrombocytopenia Varices of esophagus determined by endoscopy Walker as ambulation aid Wears glasses Home Medications ferrous sulfate [iron] 325 mg PO DAILY 03/20/18 [History Last Taken 03/11/20] magnesium oxide 400 mg PO TID 03/12/20 [History Last Taken 03/11/20] potassium chloride 10 meq PO BID 03/12/20 [History Last Taken 03/11/20] trazodone 100 mg PO QHS PRN 12/03/20 [History Last Taken Unknown] furosemide 20 mg PO DAILY 12/04/20 [History Last Taken Unknown] spironolactone 50 mg PO BID 12/04/20 [History Last Taken Unknown] tramadol 50 mg tablet 50 mg PO Q6H PRN #20 tab 12/17/20 [Rx Last Taken Unknown] thiamine HCl (vitamin B1) 100 mg tablet 100 mg PO DAILY #30 tab 12/20/20 [Rx Last Taken Unknown] midodrine 10 mg PO TID 12/27/20 [History Last Taken 01/01/21 09:00] multivitamin 1 tab PO DAILY 12/27/20 [History Last Taken Unknown] meclizine 12.5 mg tablet 12.5 mg PO TID PRN #90 tab 01/25/21 [Rx Last Taken Unknown] promethazine 25 mg PO Q6H PRN PRN #12 tablet 04/11/21 [Rx Last Taken Unknown] lactulose 10 g PO DAILY 05/22/21 [History Last Taken Unknown] pantoprazole 40 mg PO BID 05/22/21 [History Last Taken Unknown] ondansetron 4 mg PO Q6H PRN #10 tab 05/24/21 [Rx Last Taken Unknown] Allergy/AdvReac Type Severity Reaction Status Date / Time No Known Allergies Allergy Verified 06/05/21 20:12 Family History Mother Cancer Father Lupus Surgical History History of esophagogastroduodenoscopy (EGD) History of removal of cyst Social History household members: none Smoking Status: Current every day smoker tobacco type: cigarettes alcohol intake: current alcohol intake frequency: a few times a week substance use type: does not use ROS ROS ED Constitutional Constitutional ED: Denies chills or fever(s) Eyes Eyes: Denies blurry vision ENT ENT ED: Denies rhinorrhea or sore throat Cardiovascular Cardiovascular: Denies chest pain or palpitations Respiratory/Chest Respiratory/Chest: Denies cough or dyspnea Gastrointestinal Gastrointestinal: Reports nausea; Denies abdominal pain or vomiting Genitourinary Genitourinary ED: Denies dysuria or hematuria Musculoskeletal Musculoskeletal: Denies arthralgias or myalgias Integumentary Denies rash Neurologic Neurologic: Denies headache(s) or weakness EXAM Physical Exam Const Vital Signs: 06/05/21 20:09 06/05/21 20:59 Temperature 97.2 F L Temperature Source Temporal Pulse Rate 112 H Respiratory Rate 18 Respiratory Effort Normal Non-Labored Respiratory Pattern Normal Blood Pressure 129/71 H Blood Pressure Mean 90 Pulse Ox 96 Oxygen Delivery Method Room Air Positive cachectic and unkempt General Appearance ED: unkempt, cachectic and NAD Nutritional Appearance: cachectic HEENT Reports moist mucous membranes Negative for trauma Eyes PERRL and EOMs intact bilaterally Chest Wall inspection of chest normal Resp normal respiratory effort and clear to auscultation bilaterally Cardio regular rate Rate: tachycardic GI normal to inspection, nondistended, normoactive bowel sounds Extremity Extremity Narrative: Superficial skin tear 3 cm left dorsal forearm. No active bleeding. No bony deformity or bony tenderness. Neuro oriented x3 and CN's II-XII intact bilaterally Sensorium / Orientation: alert Psych mental status grossly normal Appearance: unkempt Skin Skin Narrative: As documented above MDM MDM MDM Narrative Medical decision making narrative: Patient fell by ambulating with his walker today. He has a history of cirrhosis, alcoholism. Patient did hit his head he has low platelets. He does not have any focal neurologic deficits or lateralizing signs or symptoms. When I initially went to evaluate him he was walking down the hallway with his walker and needed about 60 feet to the bathroom and back without any assistance. On evaluation he has a superficial skin tear to the dorsal surface of the left arm. He states he has nausea but he always has nausea. I will obtain a CT in the wound care for the left arm wound. I do not believe these anything else emergently currently. Patient requested nausea medicine because he has chronic nausea. He was given Zofran with relief. His wound was cleaned and dressed. CT of the brain obtained and is negative for acute or cranial findings. Since the patient is already ambulatory with his baseline walker I think he safe for discharge. He is given return precautions. Impression: 1. Mechanical fall 2. Closed head injury 3. Nausea 4. History of EtOH abuse Radiography Diagnostic Testing: Clinical Impression(s) from Imaging Studies Brain CT 06/05/21 22:04 IMPRESSION: No acute abnormalities. Mild chronic microvascular ischemic disease. Electronically Signed: Mindy Gupta MD at 23:02 EDT , Discharge Plan Triage Chief Complaint: Syncope ED Provider: Orlando Adames Dx/Rx/DC Orders Prescriptions: No Action tramadol 50 mg tablet 50 mg PO Q6H PRN (Reason: pain) Qty: 20 RF: 0 ferrous sulfate [iron] 325 MG tablet 325 mg PO DAILY RF: 0 potassium chloride 10 MEQ tablet extended release 10 meq PO BID RF: 0 magnesium oxide 400 MG tablet 400 mg PO TID RF: 0 trazodone 100 mg Tablet 100 mg PO QHS PRN (Reason: sleep) RF: 0 furosemide 20 mg tablet 20 mg PO DAILY RF: 0 spironolactone 50 mg tablet 50 mg PO BID RF: 0 multivitamin Tablet 1 tab PO DAILY RF: 0 midodrine 10 mg tablet 10 mg PO TID RF: 0 promethazine 25 MG tablet 25 mg PO Q6H PRN PRN (Reason: Nausea) Qty: 12 RF: 0 pantoprazole 40 mg tablet,delayed release (DR/EC) 40 mg PO BID RF: 0 lactulose 10 gram/15 mL solution 10 g PO DAILY RF: 0 ondansetron 4 mg tablet,disintegrating 4 mg PO Q6H PRN (Reason: nausea and vomiting) Qty: 10 RF: 0 thiamine HCl (vitamin B1) [Vitamin B-1] 100 mg tablet 100 mg PO DAILY Qty: 30 RF: 2 meclizine 12.5 mg tablet 12.5 mg PO TID PRN (Reason: dizziness) Qty: 90 RF: 2 Primary Care Provider: Alice Cuellar
[2021-06-05] MEDS: Ondansetron ODT 4 MG Tablet PO (22:23)
--- NOTE | 2021-06-05 23:31 | ED.RN ---
pt called for ride, witnessed by VAL Small
== END 2021-06-05 23:35 | disposition home or self-care (01) ==
PROVIDERS: Emergency Provider Student in an Organized Health Care Education/Training Program; PCP Family Medicine; Visit Provider Student in an Organized Health Care Education/Training Program
DX: S09.90XA Unspecified injury of head, initial encounter (principal); S51.812A Laceration without foreign body of left forearm, initial encounter; W19.XXXA Unspecified fall, initial encounter; F17.210 Nicotine dependence, cigarettes, uncomplicated; R55 Syncope and collapse; R11.0 Nausea; R42 Dizziness and giddiness
CPT/HCPCS: 70450; 99282

== ENCOUNTER 2021-06-09 07:17 | Emergency (ER) | payer MEDICARE, MEDICAID, SELFPAY ==
[2021-06-09 07:19] VITALS: BP 153/82; PULSE 101; RESP 16; TEMP 36.2; O2SAT 97; BMI 28.0
--- NOTE | 2021-06-09 07:31 | EDS_ITS ---
HPI HPI - GI History of Present Illness Chief Complaint: Abd Pain Narrative Narrative: 60-year-old male with history of EtOH abuse, cirrhosis, esophageal varices, GI bleed presenting with nausea and vomiting since about 3 AM. He states that he drank 2 beers yesterday early in the day. He states that he started vomiting this morning and he lost count of vomiting times he vomited. No hematemesis. No coffee-ground emesis. He complains of diffuse generalized abdominal pain. Has not had a fever. Patient follows with Dr. Sheldon from GI. He had recent upper endoscopy in January with esophageal varices banded. He was also referred to palliative care for chronic abdominal pain and states that he has spoken to them but he does not receive any medication from them currently. [facility] Medical History Abdominal pain Acute upper gastrointestinal bleeding Alcohol use Alcoholic cirrhosis Alcoholism Aortic aneurysm without rupture Arthritis Ascites Cannabis hyperemesis syndrome concurrent with and due to cannabis abuse Chronic anemia Chronic pain Cirrhosis Dehydration Diastolic dysfunction Esophageal varices in alcoholic cirrhosis Excessive bleeding Gastric reflux History of alcoholism History of esophageal varices History of GI bleed Hypotension Injury of head and neck Liver cirrhosis, alcoholic Marijuana use Near syncope Pancytopenia Peripheral arterial disease Severe sepsis with acute organ dysfunction Smoker Spontaneous bacterial peritonitis Thrombocytopenia Varices of esophagus determined by endoscopy Walker as ambulation aid Wears glasses Home Medications ferrous sulfate [iron] 325 mg PO DAILY 03/20/18 [History Last Taken 03/11/20] magnesium oxide 400 mg PO TID 03/12/20 [History Last Taken 03/11/20] potassium chloride 10 meq PO BID 03/12/20 [History Last Taken 03/11/20] trazodone 100 mg PO QHS PRN 12/03/20 [History Last Taken Unknown] furosemide 20 mg PO DAILY 12/04/20 [History Last Taken Unknown] spironolactone 50 mg PO BID 12/04/20 [History Last Taken Unknown] tramadol 50 mg tablet 50 mg PO Q6H PRN #20 tab 12/17/20 [Rx Last Taken Unknown] thiamine HCl (vitamin B1) 100 mg tablet 100 mg PO DAILY #30 tab 12/20/20 [Rx Last Taken Unknown] midodrine 10 mg PO TID 12/27/20 [History Last Taken 01/01/21 09:00] multivitamin 1 tab PO DAILY 12/27/20 [History Last Taken Unknown] meclizine 12.5 mg tablet 12.5 mg PO TID PRN #90 tab 01/25/21 [Rx Last Taken Unknown] promethazine 25 mg PO Q6H PRN PRN #12 tablet 04/11/21 [Rx Last Taken Unknown] lactulose 10 g PO DAILY 05/22/21 [History Last Taken Unknown] pantoprazole 40 mg PO BID 05/22/21 [History Last Taken Unknown] ondansetron 4 mg PO Q6H PRN #10 tab 05/24/21 [Rx Last Taken Unknown] Allergy/AdvReac Type Severity Reaction Status Date / Time No Known Allergies Allergy Verified 06/09/21 07:19 Family History Mother Cancer Father Lupus Surgical History History of esophagogastroduodenoscopy (EGD) History of removal of cyst Social History household members: none Smoking Status: Current every day smoker tobacco type: cigarettes alcohol intake: current alcohol intake frequency: a few times a week substance use type: does not use ROS ROS ED Constitutional Constitutional ED: Denies chills or fever(s) ENT ENT ED: Denies rhinorrhea or sore throat Cardiovascular Cardiovascular: Denies chest pain or palpitations Respiratory/Chest Respiratory/Chest: Denies cough or dyspnea Gastrointestinal Gastrointestinal: Reports abdominal pain, nausea and vomiting Genitourinary Genitourinary ED: Denies dysuria or hematuria Musculoskeletal Musculoskeletal: Denies arthralgias or myalgias Integumentary Denies rash Neurologic Neurologic: Denies headache(s) or weakness Psychiatric Psychiatric: Denies anxiety or depression EXAM Physical Exam Const Vital Signs: 06/09/21 07:19 Temperature 97.1 F L Temperature Source Temporal Pulse Rate 101 H Respiratory Rate 16 Blood Pressure 153/82 H Blood Pressure Mean 105 Pulse Ox 97 Oxygen Delivery Method Room Air Positive unkempt General Appearance ED: unkempt and NAD; Negative for pallor HEENT Reports moist mucous membranes normocephalic and atraumatic Eyes PERRL and EOMs intact bilaterally General Eye ED: Negative for pale conjunctiva or scleral icterus Resp normal respiratory effort and clear to auscultation bilaterally Cardio regular rate Rate: tachycardic GI non-distended GI Narrative: Diffuse Palpation: soft and tender Back/Spine no CVA tenderness Neuro Sensorium / Orientation: alert, oriented to person, oriented to place and oriented to time Psych mental status grossly normal and thought process normal Appearance: unkempt Skin General Skin Exam: Negative for jaundice or pallor MDM MDM MDM Narrative Medical decision making narrative: 60-year-old male with history of alcoholism, marijuana use, cirrhosis presenting with diffuse generalized abdominal pain as well as nausea and vomiting. He reports he only drank 3 beers about 12 hours ago however his alcohol level is 107. When this was discussed with him he stated that he sometimes just takes a couple of sips and dumped out the rest of the beer. Patient has leukopenia but this is not new. His hemoglobin is stable at 12.1. Platelets are low at 31 however this is also chronic for the patient. Renal function is normal. Potassium is normal. Magnesium slightly low at 1.5. Patient's total bilirubin is actually decreased to 0.80 direct bilirubin 0.41. AST 50. ALT normal, alkaline phosphatase normal. Lipase within normal limits at 284. Patient was given a liter of IV fluids, Haldol, morphine and on reevaluation he is improved. He has not vomited since he has been here. Discussed cessation of alcohol and marijuana use to try to alleviate his symptoms with him. I also encouraged him to follow-up with palliative care and he states that he has an appointment upcoming. He is to follow-up with Dr. Sheldon as needed as well. Patient discharged home in stable condition. Impression: 1. Leukopenia 2. Thrombocytopenia 3. Hypomagnesemia 4. Nausea/vomiting 5. Abdominal pain 6. Elevated bilirubin 7. Marijuana abuse 8. Alcohol abuse Lab Data Labs: Laboratory Results - last 24 hr 06/09/21 06/09/21 06/09/21 07:25 07:25 07:25 WBC 2.2 L RBC 3.72 L Hgb 12.1 L Hct 34.6 L MCV 93.0 MCH 32.5 H MCHC 35.0 RDW Std Deviation 54.7 H RDW Coeff of Delilah 16.0 H Plt Count 31 L* MPV 10.1 Immature Gran % (Auto) 0.000 Neut % (Auto) 58.3 Lymph % (Auto) 23.6 [place] % (Auto) 17.1 H Eos % (Auto) 0.5 Baso % (Auto) 0.5 Absolute Neuts (auto) 1.3 L Absolute Lymphs (auto) 0.51 L Nucleated RBC % 0 Differential Comment SCANNED Diff Path Review May foll Platelet Estimate MKD DEC Sodium 138 Potassium 3.8 Chloride 106 Carbon Dioxide 26.0 Anion Gap 6 BUN 6 L Creatinine 0.40 L Estim Creat Clear Calc 209.17 Est GFR (MDRD) Af Amer 278 Est GFR (MDRD) Non-Af 230 BUN/Creatinine Ratio 14.8 Glucose 151 H Calcium 8.0 L Magnesium 1.5 L Total Bilirubin 0.80 Direct Bilirubin 0.41 H AST 50 H ALT 33 Alkaline Phosphatase 100 Total Protein 6.6 Albumin 3.0 L Globulin 3.6 Lipase 284 Urine Opiates Screen Urine Methadone Screen Ur Barbiturates Screen Ur Phencyclidine Scrn Ur Amphetamines Screen MDMA (Ecstasy) Screen U Benzodiazepines Scrn Urine Cocaine Screen U Cannabinoids Screen Ur Drug Screen Comment Ethyl Alcohol 107.0 06/09/21 08:25 WBC RBC Hgb Hct MCV MCH MCHC RDW Std Deviation RDW Coeff of Delilah Plt Count MPV Immature Gran % (Auto) Neut % (Auto) Lymph % (Auto) [place] % (Auto) Eos % (Auto) Baso % (Auto) Absolute Neuts (auto) Absolute Lymphs (auto) Nucleated RBC % Differential Comment Diff Path Review Platelet Estimate Sodium Potassium Chloride Carbon Dioxide Anion Gap BUN Creatinine Estim Creat Clear Calc Est GFR (MDRD) Af Amer Est GFR (MDRD) Non-Af BUN/Creatinine Ratio Glucose Calcium Magnesium Total Bilirubin Direct Bilirubin AST ALT Alkaline Phosphatase Total Protein Albumin Globulin Lipase Urine Opiates Screen POSITIVE H Urine Methadone Screen NEGATIVE Ur Barbiturates Screen NEGATIVE Ur Phencyclidine Scrn NEGATIVE Ur Amphetamines Screen NEGATIVE MDMA (Ecstasy) Screen NEGATIVE U Benzodiazepines Scrn NEGATIVE Urine Cocaine Screen NEGATIVE U Cannabinoids Screen POSITIVE H Ur Drug Screen Comment Ethyl Alcohol Discharge Plan Triage Chief Complaint: Abd Pain ED Provider: Orlando Adames Dx/Rx/DC Orders Clinical Impression: Hypomagnesemia, Alcoholism, Intermittent generalized abdominal pain, Vomiting, Thrombocytopenia Instructions: Discharge Instructions for ..., ED Marijuana Abuse, ED Abdominal Pain Unkn Cause Male..., ED Alcohol Abuse Prescriptions: No Action tramadol 50 mg tablet 50 mg PO Q6H PRN (Reason: pain) Qty: 20 RF: 0 ferrous sulfate [iron] 325 MG tablet 325 mg PO DAILY RF: 0 potassium chloride 10 MEQ tablet extended release 10 meq PO BID RF: 0 magnesium oxide 400 MG tablet 400 mg PO TID RF: 0 trazodone 100 mg Tablet 100 mg PO QHS PRN (Reason: sleep) RF: 0 furosemide 20 mg tablet 20 mg PO DAILY RF: 0 spironolactone 50 mg tablet 50 mg PO BID RF: 0 multivitamin Tablet 1 tab PO DAILY RF: 0 midodrine 10 mg tablet 10 mg PO TID RF: 0 promethazine 25 MG tablet 25 mg PO Q6H PRN PRN (Reason: Nausea) Qty: 12 RF: 0 pantoprazole 40 mg tablet,delayed release (DR/EC) 40 mg PO BID RF: 0 lactulose 10 gram/15 mL solution 10 g PO DAILY RF: 0 ondansetron 4 mg tablet,disintegrating 4 mg PO Q6H PRN (Reason: nausea and vomiting) Qty: 10 RF: 0 thiamine HCl (vitamin B1) [Vitamin B-1] 100 mg tablet 100 mg PO DAILY Qty: 30 RF: 2 meclizine 12.5 mg tablet 12.5 mg PO TID PRN (Reason: dizziness) Qty: 90 RF: 2 Primary Care Provider: Alice Cuellar Referrals: Alice Cuellar DO [Primary Care Provider] - Friend,DO Hugo [STAFF PHYSICIAN] - As Needed Disposition Disposition: Home, Self Care
[2021-06-09] MEDS: Haloperidol Lactate 5 MG/ML Vial 2 MG IV (07:37)
[2021-06-09] MEDS: 0.9% Normal Saline 1,000 ML 999 ML IV (07:37)
[2021-06-09] MEDS: Morphine 4 MG/ML Syringe IV (07:37)
[2021-06-09 07:42] LABS: Absolute Lymphocyte Count 0.51 X10^3/uL (0.83-4.51); Absolute Neutrophil Count 1.3 X10^3/uL (2.0-7.7); Basophil# 0.01 X10^3/uL; Basophil% 0.5 % (0-1); Eosinophil# 0.01 X10^3/uL; Eosinophils% 0.5 % (0-5); Hematocrit 34.6 % (40-54); Hemoglobin 12.1 g/dL (13.0-16.5); Lymphocyte # 0.51 X10^3/ul (0.83-4.51); Lymphocyte % 23.6 % (19-41); Mean Corpuscular Hgb 32.5 pg (27.0-32.0); Mean Platelet Vol. 10.1 fl (6.2-12.0); Monocyte# 0.37 X10^3/uL; Monocyte% 17.1 % (0-10); NRBC Flagged by Analyzer 0 % (0-5); Neutrophil # 1.26 X10^3/uL (2.7-7.7); Neutrophil % 58.3 % (47-70); POSITIVE COUNT YES; POSITIVE DIFFERENTIAL YES; RBC Distribution Width SD 54.7 fl (35.1-43.9); Red Blood Count 3.72 M/mm3 (4.6-6.2); White Blood Count 2.2 K/mm3 (4.4-11.0)
[2021-06-09 07:48] LABS: AST(SGOT) 50 U/L (15-37); Alanine Aminotransfer ALT/SGPT 33 U/L (16-61); Alkaline Phosphatase 100 U/L (45-117); Anion Gap 6 (5-15); BUN 6 mg/dL (7-18); BUN/Creat Ratio 14.8 RATIO (10-20); Bilirubin, Direct 0.41 mg/dL (0.00-0.30); Chloride 106 mmol/L (98-107); Differential Indicated SCAN CRITERIA MET; EST Glomerular Filtration Rate 230 mL/min (>60); Est Glom Filt Rate - Afr Amer 278 mL/min (>60); Estimated Creatinine Clearance 209.17 ml/min; Globulin 3.6 g/dL (2.2-4.2); Glucose 151 mg/dL (74-106); Lipase 284 U/L (73-393); Magnesium 1.5 mg/dL (1.6-2.6); Platelet Count 31 K/mm3 (150-450); Potassium 3.8 mmol/L (3.5-5.1); Protein, Total 6.6 g/dL (6.4-8.2); Sodium Level 138 mmol/L (136-145)
[2021-06-09 08:15] LABS: Differential Comment SCANNED
[2021-06-09 08:16] LABS: Platelet Estimate MKD DEC (ADEQ)
[2021-06-09 08:48] LABS: Amphetamine Urine VISTA NEGATIVE (<1000 ng/mL); Barbiturate Urine VISTA NEGATIVE (< 200 ng/mL); Benzodiazepine Urine VISTA NEGATIVE (< 200 ng/mL); Cocaine Urine VISTA NEGATIVE (< 300 ng/mL); Ecstacy Urine VISTA NEGATIVE (< 500 ng/mL); Methadone Urine VISTA NEGATIVE (< 300 ng/mL); PCP Urine VISTA NEGATIVE (< 25 ng/mL); THC Urine VISTA POSITIVE (< 50 ng/mL); Vista UDS pH Range 6
[2021-06-09 09:07] VITALS: BP 127/68; PULSE 82; RESP 16; O2SAT 95
[2021-06-10 13:02] LABS: Pathologist Review Reviewed
== END 2021-06-09 09:09 | disposition home or self-care (01) ==
PROVIDERS: Emergency Provider Student in an Organized Health Care Education/Training Program; PCP Family Medicine; Visit Provider Student in an Organized Health Care Education/Training Program
DX: R11.2 Nausea with vomiting, unspecified (principal); F10.20 Alcohol dependence, uncomplicated; D69.6 Thrombocytopenia, unspecified; E83.42 Hypomagnesemia; R10.84 Generalized abdominal pain; F17.210 Nicotine dependence, cigarettes, uncomplicated; F12.10 Cannabis abuse, uncomplicated; D72.819 Decreased white blood cell count, unspecified; Y90.5 Blood alcohol level of 100-119 mg/100 ml
CPT/HCPCS: 80048; 80076; 80307; 82077; 83690; 83735; 85025; 99285; J7030

== ENCOUNTER 2021-06-12 00:10 | Emergency (ER) | payer MEDICARE, MEDICAID, SELFPAY ==
[2021-06-12 00:12] VITALS: BP 176/82; PULSE 114; RESP 16; TEMP 36.8; O2SAT 95; BMI 28.0
[2021-06-12 00:16] VITALS: BP 171/79; PULSE 111; RESP 18; TEMP 36.8; O2SAT 95
--- NOTE | 2021-06-12 00:31 | EDS_ITS ---
HPI HPI - GI History of Present Illness Chief Complaint: Abd Pain Abdominal Pain/Flank Pain Onset: Hours (12) Context: Sudden Onset Timing: Continuous Quality: Sharp Location: Diffuse Worsened by: Nothing Relieved by: Nothing Nausea/Vomiting/Emesis GI Symptom: Positive for Nausea and Vomiting Quality: Negative for Blood streaks, Coffee ground and Hematemesis Diarrhea/Melena/Hematochezia GI Symptom: Negative for Diarrhea, Melena and Hematochezia Associated Symptoms Associated Symptoms: Negative for Dysuria, Frequency and Hematuria Narrative Narrative: Patient presents with abdominal pain, nausea, and vomiting that began today approximately 12 hours prior to arrival. Patient states it is been constant. Patient states his pain is diffuse across his abdomen. Patient describes the pain is sharp. Patient states he vomited up a small amount of stomach contents earlier today. Patient states that currently he is only having dry heaves. Patient denies any hematemesis or coffee-ground emesis. Patient denies any diarrhea, melena, or hematochezia. Patient denies any fevers or chills. Patient denies any urinary complaints. [facility] Medical History Abdominal pain Acute upper gastrointestinal bleeding Alcohol use Alcoholic cirrhosis Alcoholism Aortic aneurysm without rupture Arthritis Ascites Cannabis hyperemesis syndrome concurrent with and due to cannabis abuse Chronic anemia Chronic pain Cirrhosis Dehydration Diastolic dysfunction Esophageal varices in alcoholic cirrhosis Excessive bleeding Gastric reflux History of alcoholism History of esophageal varices History of GI bleed Hypotension Injury of head and neck Liver cirrhosis, alcoholic Marijuana use Near syncope Pancytopenia Peripheral arterial disease Severe sepsis with acute organ dysfunction Smoker Spontaneous bacterial peritonitis Thrombocytopenia Varices of esophagus determined by endoscopy Walker as ambulation aid Wears glasses Home Medications ferrous sulfate [iron] 325 mg PO DAILY 03/20/18 [History Last Taken 03/11/20] magnesium oxide 400 mg PO TID 03/12/20 [History Last Taken 03/11/20] potassium chloride 10 meq PO BID 03/12/20 [History Last Taken 03/11/20] trazodone 100 mg PO QHS PRN 12/03/20 [History Last Taken Unknown] furosemide 20 mg PO DAILY 12/04/20 [History Last Taken Unknown] spironolactone 50 mg PO BID 12/04/20 [History Last Taken Unknown] tramadol 50 mg tablet 50 mg PO Q6H PRN #20 tab 12/17/20 [Rx Last Taken Unknown] thiamine HCl (vitamin B1) 100 mg tablet 100 mg PO DAILY #30 tab 12/20/20 [Rx Last Taken Unknown] midodrine 10 mg PO TID 12/27/20 [History Last Taken 01/01/21 09:00] multivitamin 1 tab PO DAILY 12/27/20 [History Last Taken Unknown] meclizine 12.5 mg tablet 12.5 mg PO TID PRN #90 tab 01/25/21 [Rx Last Taken Unknown] promethazine 25 mg PO Q6H PRN PRN #12 tablet 04/11/21 [Rx Last Taken Unknown] lactulose 10 g PO DAILY 05/22/21 [History Last Taken Unknown] pantoprazole 40 mg PO BID 05/22/21 [History Last Taken Unknown] ondansetron 4 mg PO Q6H PRN #10 tab 05/24/21 [Rx Last Taken Unknown] promethazine [Promethegan] 25 mg [place] Q6H PRN PRN #6 suppos. 06/12/21 [Rx Last Taken Unknown] Allergy/AdvReac Type Severity Reaction Status Date / Time No Known Allergies Allergy Verified 06/09/21 07:19 Family History Mother Cancer Father Lupus Surgical History History of esophagogastroduodenoscopy (EGD) History of removal of cyst Social History household members: none Smoking Status: Current every day smoker tobacco type: cigarettes alcohol intake: current alcohol intake frequency: a few times a week substance use type: does not use ROS ROS ED Constitutional Constitutional ED: Denies chills or fever(s) Eyes Eyes: Denies blurry vision or change in vision ENT ENT ED: Denies rhinorrhea or sore throat Cardiovascular Cardiovascular: Reports chest pain; Denies palpitations Respiratory/Chest Respiratory/Chest: Reports dyspnea; Denies cough Gastrointestinal Gastrointestinal: Reports abdominal pain, nausea and vomiting; Denies diarrhea or melena Genitourinary Genitourinary ED: Denies dysuria or hematuria Musculoskeletal Musculoskeletal: Reports back pain and neck pain Integumentary Denies abscess or rash Neurologic Neurologic: Denies headache(s) or weakness Allergic/Immunologic Allergic/Immunologic ED: Denies mouth swelling or urticaria EXAM Physical Exam Const Vital Signs: 06/12/21 00:12 06/12/21 00:16 Temperature 98.3 F 98.3 F Temperature Source Oral Oral Pulse Rate 114 H 111 H Respiratory Rate 16 18 Blood Pressure 176/82 H 171/79 H Blood Pressure Mean 113 109 Pulse Ox 95 95 Oxygen Delivery Method Room Air Room Air Positive well nourished and well developed General Appearance ED: well developed and NAD HEENT Reports moist mucous membranes Neck supple and no JVD Resp normal respiratory effort and clear to auscultation bilaterally Cardio regular rate, regular rhythm and no murmurs GI normal to inspection, nondistended, normoactive bowel sounds and non-distended Auscultation: normoactive bowel sounds Palpation: soft and tender epigastric, LLQ, RLQ, LUQ, RUQ, periumbilical and suprapubic; Negative for guarding or rebound tenderness present Extremity normal to inspection General Extremety ED: Negative for edema or tenderness General Extremity: Negative for edema Neuro oriented x3, CN's II-XII intact bilaterally and no sensory deficits noted Sensorium / Orientation: alert Motor Exam: strength 5/5 throughout Psych mental status grossly normal Skin no rashes or lesions noted MDM MDM MDM Narrative Medical decision making narrative: Patient was given IV fluids and Zofran here. CBC shows a white blood cell count of 3.4. This is improved compared to previous result. There is also mild anemia with a hemoglobin of 12.7 and hematocrit 36.1. These are also improved from previous results. There is a thrombocytopenia with a platelet count of 43 which is also improved from previous result. Comprehensive metabolic profile was obtained and was essentially within normal limits with the exception of a glucose that was mildly elevated at 173. AST was mildly elevated at 53. Patient was still having some abdominal pain and nausea. Patient was given a dose of morphine and Phenergan here. Patient was given a prescription for Phenergan suppositories. Patient was instructed to start with small amounts of liquids and advance his diet as tolerated. Patient was instructed to follow-up with his primary care physician in 3 to 5 days for reevaluation. Patient understood and was agreeable with the plan. All questions were answered. Lab Data Attestation: I reviewed the patient's lab results. Labs: Laboratory Results - last 24 hr 06/12/21 06/12/21 00:20 00:20 WBC 3.4 L RBC 3.82 L Hgb 12.7 L Hct 36.1 L MCV 94.5 H MCH 33.2 H MCHC 35.2 RDW Std Deviation 56.0 H RDW Coeff of Delilah 16.1 H Plt Count 43 L* MPV 10.4 Immature Gran % (Auto) 0.300 Neut % (Auto) 59.7 Lymph % (Auto) 24.7 [place] % (Auto) 14.1 H Eos % (Auto) 0.9 Baso % (Auto) 0.3 Absolute Neuts (auto) 2.0 Absolute Lymphs (auto) 0.84 Nucleated RBC % 0 Differential Comment SCANNED Diff Path Review May foll Platelet Estimate MKD DEC Sodium 140 Potassium 3.6 Chloride 107 Carbon Dioxide 24.0 Anion Gap 9 BUN 9 Creatinine 0.56 L Estim Creat Clear Calc 149.40 Est GFR (MDRD) Af Amer 190 Est GFR (MDRD) Non-Af 157 BUN/Creatinine Ratio 16.0 Glucose 173 H Calcium 8.2 L Total Bilirubin 1.00 AST 53 H ALT 32 Alkaline Phosphatase 102 Total Protein 7.0 Albumin 3.0 L Globulin 4.0 Albumin/Globulin Ratio 0.8 L Discharge Plan Triage Chief Complaint: Abd Pain ED Provider: Kulwant Stevens Dx/Rx/DC Orders Clinical Impression: Abdominal pain, Alcoholism, Vomiting, Thrombocytopenia Instructions: ED Abdominal Pain Unkn Cause Male... Prescriptions: New promethazine [Promethegan] 25 MG suppository 25 mg [place] Q6H PRN PRN (Reason: Nausea) Qty: 6 RF: 0 No Action tramadol 50 mg tablet 50 mg PO Q6H PRN (Reason: pain) Qty: 20 RF: 0 ferrous sulfate [iron] 325 MG tablet 325 mg PO DAILY RF: 0 potassium chloride 10 MEQ tablet extended release 10 meq PO BID RF: 0 magnesium oxide 400 MG tablet 400 mg PO TID RF: 0 trazodone 100 mg Tablet 100 mg PO QHS PRN (Reason: sleep) RF: 0 furosemide 20 mg tablet 20 mg PO DAILY RF: 0 spironolactone 50 mg tablet 50 mg PO BID RF: 0 multivitamin Tablet 1 tab PO DAILY RF: 0 midodrine 10 mg tablet 10 mg PO TID RF: 0 promethazine 25 MG tablet 25 mg PO Q6H PRN PRN (Reason: Nausea) Qty: 12 RF: 0 pantoprazole 40 mg tablet,delayed release (DR/EC) 40 mg PO BID RF: 0 lactulose 10 gram/15 mL solution 10 g PO DAILY RF: 0 ondansetron 4 mg tablet,disintegrating 4 mg PO Q6H PRN (Reason: nausea and vomiting) Qty: 10 RF: 0 thiamine HCl (vitamin B1) [Vitamin B-1] 100 mg tablet 100 mg PO DAILY Qty: 30 RF: 2 meclizine 12.5 mg tablet 12.5 mg PO TID PRN (Reason: dizziness) Qty: 90 RF: 2 Primary Care Provider: Alice Cuellar Referrals: Alice Cuellar DO [Primary Care Provider] - 3-5 Days Disposition Disposition: Home, Self Care
[2021-06-12 00:44] LABS: Absolute Lymphocyte Count 0.84 X10^3/uL (0.83-4.51); Basophil# 0.01 X10^3/uL; Basophil% 0.3 % (0-1); Eosinophil# 0.03 X10^3/uL; Eosinophils% 0.9 % (0-5); Hematocrit 36.1 % (40-54); Hemoglobin 12.7 g/dL (13.0-16.5); Lymphocyte # 0.84 X10^3/ul (0.83-4.51); Lymphocyte % 24.7 % (19-41); Mean Corp Hgb Conc 35.2 g/dL (32-36); Mean Corpuscular Hgb 33.2 pg (27.0-32.0); Mean Corpuscular Volume 94.5 fL (80-94); Mean Platelet Vol. 10.4 fl (6.2-12.0); Monocyte# 0.48 X10^3/uL; Monocyte% 14.1 % (0-10); NRBC Flagged by Analyzer 0 % (0-5); Neutrophil # 2.03 X10^3/uL (2.7-7.7); Neutrophil % 59.7 % (47-70); POSITIVE COUNT YES; Platelet Count 43 K/mm3 (150-450); RBC Distribution Width CV 16.1 % (11.6-14.6); Red Blood Count 3.82 M/mm3 (4.6-6.2); White Blood Count 3.4 K/mm3 (4.4-11.0)
[2021-06-12] MEDS: 0.9% Normal Saline 1,000 ML 1000 ML IV (00:46)
[2021-06-12] MEDS: Ondansetron 4 MG/2 ML Vial IV (00:46)
[2021-06-12 00:47] LABS: Differential Indicated SCAN CRITERIA MET
[2021-06-12 00:59] LABS: ALB/GLOB Ratio 0.8 RATIO (0.9-2.4); AST(SGOT) 53 U/L (15-37); Alanine Aminotransfer ALT/SGPT 32 U/L (16-61); Alkaline Phosphatase 102 U/L (45-117); Anion Gap 9 (5-15); BUN 9 mg/dL (7-18); Calcium,Total 8.2 mg/dL (8.5-10.1); Chloride 107 mmol/L (98-107); Creatinine, Serum 0.56 mg/dL (0.70-1.30); EST Glomerular Filtration Rate 157 mL/min (>60); Est Glom Filt Rate - Afr Amer 190 mL/min (>60); Glucose 173 mg/dL (74-106); Potassium 3.6 mmol/L (3.5-5.1); Sodium Level 140 mmol/L (136-145)
[2021-06-12 01:09] LABS: Differential Comment SCANNED; Platelet Estimate MKD DEC (ADEQ)
[2021-06-12 01:23] VITALS: PULSE 86; RESP 18; O2SAT 96
[2021-06-12] MEDS: proMETHazine 25 MG/ML Syringe 6.25 MG IM (01:27)
[2021-06-12] MEDS: Morphine 2 MG/ML Syringe IV (01:29)
--- NOTE | 2021-06-12 02:44 | EKG12_ITS ---
Test Reason : CHEST PAIN Blood Pressure : / mmHG Vent. Rate : 101 BPM Atrial Rate : 101 BPM P-R Int : 212 ms QRS Dur : 144 ms QT Int : 358 ms P-R-T Axes : 040 -48 039 degrees QTc Int : 464 ms Sinus tachycardia with 1st degree A-V block Right bundle branch block Left anterior fascicular block Bifascicular block Abnormal ECG Confirmed by AMANDA DAN, DEYANIRA ([id number]), fashion editor ANNABELLA TRIANA ([id number]) on 06/18/2021 8:51:29 AM Referred By: JUANA Confirmed By:DEYANIRA PATEL MD
[2021-06-12 10:20] LABS: Pathologist Review Reviewed
== END 2021-06-12 01:53 | disposition home or self-care (01) ==
PROVIDERS: Emergency Provider Emergency Medicine; PCP Family Medicine; Visit Provider Emergency Medicine
DX: R11.2 Nausea with vomiting, unspecified (principal); F10.20 Alcohol dependence, uncomplicated; D69.6 Thrombocytopenia, unspecified; R19.7 Diarrhea, unspecified; D64.9 Anemia, unspecified; F17.210 Nicotine dependence, cigarettes, uncomplicated; R10.9 Unspecified abdominal pain
CPT/HCPCS: 80053; 85025; 93005; 96361; 96372; 96374; 96375; 99285; J2405

== ENCOUNTER 2021-06-14 02:46 | Emergency (ER) | payer MEDICARE, MEDICAID, SELFPAY ==
[2021-06-14 02:47] VITALS: BP 142/73; PULSE 94; RESP 16; TEMP 36.6; O2SAT 95; BMI 26.2
--- NOTE | 2021-06-14 03:00 | EDS_ITS ---
HPI History of Present Illness Chief Complaint: Nausea/Vomiting Informant: patient Narrative Narrative: Patient presents with exacerbation of his abdominal pain nausea and vomiting. No coughing chest pain or trouble breathing. No melena. No hemoptysis or hematemesis. He states he is taking his meds. He has 1 or 2 Zofran at home. He states he has Phenergan suppositories but they do not work. He has a few tramadol left. Earlier today he had 2 beers and a cheeseburger. 2 beers. He states he drinks very lightly now. We discussed absolute cessation to help his symptoms. [facility] Medical History Abdominal pain Acute upper gastrointestinal bleeding Alcohol use Alcoholic cirrhosis Alcoholism Aortic aneurysm without rupture Arthritis Ascites Cannabis hyperemesis syndrome concurrent with and due to cannabis abuse Chronic anemia Chronic pain Cirrhosis Dehydration Diastolic dysfunction Esophageal varices in alcoholic cirrhosis Excessive bleeding Gastric reflux History of alcoholism History of esophageal varices History of GI bleed Hypotension Injury of head and neck Liver cirrhosis, alcoholic Marijuana use Near syncope Pancytopenia Peripheral arterial disease Severe sepsis with acute organ dysfunction Smoker Spontaneous bacterial peritonitis Thrombocytopenia Varices of esophagus determined by endoscopy Walker as ambulation aid Wears glasses Home Medications ferrous sulfate [iron] 325 mg PO DAILY 03/20/18 [History Last Taken 03/11/20] magnesium oxide 400 mg PO TID 03/12/20 [History Last Taken 03/11/20] potassium chloride 10 meq PO BID 03/12/20 [History Last Taken 03/11/20] trazodone 100 mg PO QHS PRN 12/03/20 [History Last Taken Unknown] furosemide 20 mg PO DAILY 12/04/20 [History Last Taken Unknown] spironolactone 50 mg PO BID 12/04/20 [History Last Taken Unknown] tramadol 50 mg tablet 50 mg PO Q6H PRN #20 tab 12/17/20 [Rx Last Taken Unknown] thiamine HCl (vitamin B1) 100 mg tablet 100 mg PO DAILY #30 tab 12/20/20 [Rx Last Taken Unknown] midodrine 10 mg PO TID 12/27/20 [History Last Taken 01/01/21 09:00] multivitamin 1 tab PO DAILY 12/27/20 [History Last Taken Unknown] meclizine 12.5 mg tablet 12.5 mg PO TID PRN #90 tab 01/25/21 [Rx Last Taken Unknown] promethazine 25 mg PO Q6H PRN PRN #12 tablet 04/11/21 [Rx Last Taken Unknown] lactulose 10 g PO DAILY 05/22/21 [History Last Taken Unknown] pantoprazole 40 mg PO BID 05/22/21 [History Last Taken Unknown] ondansetron 4 mg PO Q6H PRN #10 tab 05/24/21 [Rx Last Taken Unknown] promethazine [Promethegan] 25 mg NV Q6H PRN PRN #6 suppos. 06/12/21 [Rx Last Taken Unknown] ondansetron 4 mg PO Q8H PRN #10 tab 06/14/21 [Rx Last Taken Unknown] promethazine 25 mg PO TID PRN #20 tab 06/14/21 [Rx Last Taken Unknown] Allergy/AdvReac Type Severity Reaction Status Date / Time No Known Allergies Allergy Verified 06/09/21 07:19 Family History Mother Cancer Father Lupus Surgical History History of esophagogastroduodenoscopy (EGD) History of removal of cyst Social History household members: none Smoking Status: Current every day smoker tobacco type: cigarettes alcohol intake: current alcohol intake frequency: a few times a week substance use type: does not use ROS ROS ED Constitutional Constitutional ED: Denies chills or fever(s) Eyes Eyes: Denies blurry vision ENT ENT ED: Denies rhinorrhea or sore throat Cardiovascular Cardiovascular: Denies chest pain or palpitations Respiratory/Chest Respiratory/Chest: Denies cough or dyspnea Gastrointestinal Gastrointestinal: Reports abdominal pain, nausea and vomiting; Denies constipation, diarrhea or melena Genitourinary Genitourinary ED: Denies dysuria Musculoskeletal Musculoskeletal: Denies myalgias Integumentary Denies rash Neurologic Neurologic: Denies headache(s) Psychiatric Psychiatric: Reports anxiety Endocrine Endocrinology: Denies polydipsia or polyuria Allergic/Immunologic Allergic/Immunologic ED: Denies urticaria EXAM Physical Exam Const Vital Signs: 06/14/21 02:47 Temperature 98 F Temperature Source Temporal Pulse Rate 94 Respiratory Rate 16 Blood Pressure 142/73 H Blood Pressure Mean 96 Pulse Ox 95 Positive well nourished and well developed General Appearance ED: well developed and NAD HEENT Reports moist mucous membranes Eyes General Eye ED: Negative for pale conjunctiva or scleral icterus Neck no JVD Resp normal respiratory effort and clear to auscultation bilaterally Auscultation: Negative for rales, rhonchi or wheezes Cardio regular rate and regular rhythm GI normal to inspection, nondistended, normoactive bowel sounds and non-distended GI Narrative: Patient's bowel sounds are normal. He has mild nonfocal tenderness that varies depending on if we are speaking at the time also. There is no consistent tenderness. I feel no mass. He is not distended. Incisions remain well-healed. Auscultation: normoactive bowel sounds Palpation: soft Back/Spine no CVA tenderness Extremity Extremity Narrative: Chronic venous stasis changes bilaterally. Neuro Sensorium / Orientation: alert Psych mental status grossly normal Skin no rashes or lesions noted MDM MDM MDM Narrative Medical decision making narrative: Patient's blood work shows that most of his labs are at relative baseline. He does have a low white count similar to prior. Hemoglobin is at her little above before. Platelets are always low and he is about at his baseline at 39,000. Electrolytes are unremarkable. BUN and creatinine are not elevated. Potassium is normal. Bicarb and chloride are normal. No laboratory indication of significant vomiting or diarrhea based on these. His total bilirubin is slightly above his baseline but has been higher in the past. Lipase is low. INR was not checked today. However, his INR runs about 1.5 in the past and was checked in April. He is not having any bleeding complaints. Alcohol level is 186. Again this was discussed that this is not consistent with only 2 beers throughout the entire past 24 hours. I went in to check on the patient. There is been no vomiting here at all. I had to wake him up. He was sleeping soundly. We will get him more meds for nausea as he says he still nauseated. I think we can get him home. Lab Data Attestation: I reviewed the patient's lab results. Labs: Laboratory Results - last 24 hr 06/14/21 06/14/21 06/14/21 02:50 02:50 02:50 WBC 3.7 L RBC 4.01 L Hgb 13.3 Hct 38.2 L MCV 95.3 H MCH 33.2 H MCHC 34.8 RDW Std Deviation 56.5 H RDW Coeff of Delilah 15.9 H Plt Count 39 L* MPV 10.6 Immature Gran % (Auto) 0.000 Neut % (Auto) 63.2 Lymph % (Auto) 25.1 [place] % (Auto) 10.6 H Eos % (Auto) 0.8 Baso % (Auto) 0.3 Absolute Neuts (auto) 2.3 Absolute Lymphs (auto) 0.92 Nucleated RBC % 0 Differential Comment SCANNED Diff Path Review May foll Platelet Estimate MKD DEC Sodium 138 Potassium 3.6 Chloride 107 Carbon Dioxide 24.0 Anion Gap 7 BUN 4 L Creatinine 0.54 L Estim Creat Clear Calc 154.94 Est GFR (MDRD) Af Amer 201 Est GFR (MDRD) Non-Af 166 BUN/Creatinine Ratio 7.5 L Glucose 138 H Calcium 7.8 L Total Bilirubin 1.60 H AST 54 H ALT 36 Alkaline Phosphatase 94 Total Protein 7.1 Albumin 3.3 Globulin 3.8 Albumin/Globulin Ratio 0.9 Lipase 218 Ethyl Alcohol 186.0 Discharge Plan Triage Chief Complaint: Nausea/Vomiting ED Provider: Mariano Hollins Dx/Rx/DC Orders Clinical Impression: Abdominal pain, chronic, generalized, Chronic nausea, Alcohol abuse Instructions: Abdominal Pain, ED Vomiting (Adult), ED Alcohol Abuse Prescriptions: New ondansetron 4 mg tablet,disintegrating 4 mg PO Q8H PRN (Reason: nausea and vomiting) Qty: 10 RF: 0 promethazine 25 mg tablet 25 mg PO TID PRN (Reason: nausea and vomiting) Qty: 20 RF: 0 No Action tramadol 50 mg tablet 50 mg PO Q6H PRN (Reason: pain) Qty: 20 RF: 0 ferrous sulfate [iron] 325 MG tablet 325 mg PO DAILY RF: 0 potassium chloride 10 MEQ tablet extended release 10 meq PO BID RF: 0 magnesium oxide 400 MG tablet 400 mg PO TID RF: 0 trazodone 100 mg Tablet 100 mg PO QHS PRN (Reason: sleep) RF: 0 furosemide 20 mg tablet 20 mg PO DAILY RF: 0 spironolactone 50 mg tablet 50 mg PO BID RF: 0 multivitamin Tablet 1 tab PO DAILY RF: 0 midodrine 10 mg tablet 10 mg PO TID RF: 0 promethazine 25 MG tablet 25 mg PO Q6H PRN PRN (Reason: Nausea) Qty: 12 RF: 0 pantoprazole 40 mg tablet,delayed release (DR/EC) 40 mg PO BID RF: 0 lactulose 10 gram/15 mL solution 10 g PO DAILY RF: 0 ondansetron 4 mg tablet,disintegrating 4 mg PO Q6H PRN (Reason: nausea and vomiting) Qty: 10 RF: 0 promethazine [Promethegan] 25 MG suppository 25 mg NV Q6H PRN PRN (Reason: Nausea) Qty: 6 RF: 0 thiamine HCl (vitamin B1) [Vitamin B-1] 100 mg tablet 100 mg PO DAILY Qty: 30 RF: 2 meclizine 12.5 mg tablet 12.5 mg PO TID PRN (Reason: dizziness) Qty: 90 RF: 2 Primary Care Provider: Alice Cuellar Referrals: Alice Cuellar DO [Primary Care Provider] - As Needed Friend,DO Hugo [STAFF PHYSICIAN] - Keep Sergey appointment Disposition Disposition: Home, Self Care
[2021-06-14] MEDS: 0.9% Normal Saline 1,000 ML 1000 ML IV (03:06)
[2021-06-14] MEDS: Ondansetron 4 MG/2 ML Vial IV (03:06)
[2021-06-14] MEDS: Morphine 2 MG/ML Syringe IV (03:06)
[2021-06-14 03:16] LABS: Absolute Lymphocyte Count 0.92 X10^3/uL (0.83-4.51); Absolute Neutrophil Count 2.3 X10^3/uL (2.0-7.7); Basophil# 0.01 X10^3/uL; Basophil% 0.3 % (0-1); Eosinophil# 0.03 X10^3/uL; Eosinophils% 0.8 % (0-5); Hematocrit 38.2 % (40-54); Hemoglobin 13.3 g/dL (13.0-16.5); Lymphocyte # 0.92 X10^3/ul (0.83-4.51); Lymphocyte % 25.1 % (19-41); Mean Corp Hgb Conc 34.8 g/dL (32-36); Mean Corpuscular Hgb 33.2 pg (27.0-32.0); Mean Corpuscular Volume 95.3 fL (80-94); Mean Platelet Vol. 10.6 fl (6.2-12.0); Monocyte# 0.39 X10^3/uL; Monocyte% 10.6 % (0-10); NRBC Flagged by Analyzer 0 % (0-5); Neutrophil # 2.32 X10^3/uL (2.7-7.7); Neutrophil % 63.2 % (47-70); POSITIVE COUNT YES; RBC Distribution Width CV 15.9 % (11.6-14.6); RBC Distribution Width SD 56.5 fl (35.1-43.9); Red Blood Count 4.01 M/mm3 (4.6-6.2); White Blood Count 3.7 K/mm3 (4.4-11.0)
[2021-06-14 03:19] LABS: Differential Indicated SCAN CRITERIA MET; Platelet Count 39 K/mm3 (150-450)
[2021-06-14 03:24] LABS: ALB/GLOB Ratio 0.9 RATIO (0.9-2.4); AST(SGOT) 54 U/L (15-37); Alanine Aminotransfer ALT/SGPT 36 U/L (16-61); Albumin, Serum 3.3 g/dL (3.2-5.0); Alkaline Phosphatase 94 U/L (45-117); Anion Gap 7 (5-15); BUN 4 mg/dL (7-18); BUN/Creat Ratio 7.5 RATIO (10-20); Calcium,Total 7.8 mg/dL (8.5-10.1); Chloride 107 mmol/L (98-107); Creatinine, Serum 0.54 mg/dL (0.70-1.30); EST Glomerular Filtration Rate 166 mL/min (>60); Est Glom Filt Rate - Afr Amer 201 mL/min (>60); Estimated Creatinine Clearance 154.94 ml/min; Globulin 3.8 g/dL (2.2-4.2); Glucose 138 mg/dL (74-106); Lipase 218 U/L (73-393); Potassium 3.6 mmol/L (3.5-5.1); Protein, Total 7.1 g/dL (6.4-8.2); Sodium Level 138 mmol/L (136-145)
[2021-06-14 03:28] LABS: Differential Comment SCANNED; Platelet Estimate MKD DEC (ADEQ)
[2021-06-14] MEDS: proMETHazine 25 MG/ML Syringe 12.5 MG IM (04:12)
[2021-06-14 04:16] VITALS: BP 132/78; PULSE 84; RESP 18; O2SAT 98
[2021-06-14 10:45] LABS: Pathologist Review Reviewed
== END 2021-06-14 04:19 | disposition home or self-care (01) ==
PROVIDERS: Emergency Provider Emergency Medicine; PCP Family Medicine; Visit Provider Emergency Medicine
DX: R10.9 Unspecified abdominal pain (principal); R11.2 Nausea with vomiting, unspecified; F17.210 Nicotine dependence, cigarettes, uncomplicated; F10.10 Alcohol abuse, uncomplicated; Z79.899 Other long term (current) drug therapy
CPT/HCPCS: 80053; 82077; 83690; 85025; 96361; 96372; 96374; 96375; 99284; J7030; A4216; J2405; J3490

== ENCOUNTER 2021-06-17 20:13 | Emergency (ER) | payer MEDICARE, MEDICAID, SELFPAY ==
[2021-06-17 20:14] VITALS: BP 140/54; PULSE 91; RESP 18; TEMP 36.1; O2SAT 98; BMI 25.1
--- NOTE | 2021-06-17 22:14 | ED.RN ---
This RN pulled Haloperidol for patient. Vial states medication can only be given IV. Dr. Adames notified and ok for IV use. Pharmacy also called and ok for IV use.
[2021-06-17] MEDS: 0.9% Normal Saline 1,000 ML 1000 ML IV (22:16)
[2021-06-17] MEDS: Haloperidol Lactate 5 MG/ML Vial 2 MG IV (22:16)
[2021-06-17 22:25] LABS: Absolute Lymphocyte Count 0.36 X10^3/uL (0.83-4.51); Hematocrit 39.2 % (40-54); Hemoglobin 13.2 g/dL (13.0-16.5); Lymphocyte # 0.36 X10^3/ul (0.83-4.51); Mean Corp Hgb Conc 33.7 g/dL (32-36); Mean Corpuscular Hgb 32.7 pg (27.0-32.0); Mean Platelet Vol. 11.1 fl (6.2-12.0); Monocyte% 7.8 % (0-10); NRBC Flagged by Analyzer 0 % (0-5); Neutrophil % 77.8 % (47-70); POSITIVE COUNT YES; POSITIVE DIFFERENTIAL YES; RBC Distribution Width CV 15.9 % (11.6-14.6); RBC Distribution Width SD 57.3 fl (35.1-43.9); Red Blood Count 4.04 M/mm3 (4.6-6.2); White Blood Count 2.6 K/mm3 (4.4-11.0)
[2021-06-17 22:27] LABS: Differential Indicated SCAN CRITERIA MET
[2021-06-17 22:30] LABS: Platelet Count 31 K/mm3 (150-450)
--- NOTE | 2021-06-17 22:32 | ED.VIS.GI ---
HPI HPI - GI History of Present Illness Chief Complaint: Abd Pain Narrative Narrative: 60-year-old male with acute on chronic abdominal pain. He has a history of EtOH abuse, esophageal varices, cirrhosis, electrolyte abnormalities. Patient states that he felt good yesterday and earlier today. He states that today he celebrated his brother coming home from the [employer] and they went out for a cheeseburger and beer. His brother was celebrating being home and he was celebrating the fact that he would not be drinking anymore by drinking beer. He states that he drank a beer and a half. He states that after eating a cheeseburger and drinking the beer the bottom came out he had diffuse crampy abdominal pain. He is not having any diarrhea. No fever or chills. No urinary complaints. [facility] Medical History Abdominal pain Acute upper gastrointestinal bleeding Alcohol use Alcoholic cirrhosis Alcoholism Aortic aneurysm without rupture Arthritis Ascites Cannabis hyperemesis syndrome concurrent with and due to cannabis abuse Chronic anemia Chronic pain Cirrhosis Dehydration Diastolic dysfunction Esophageal varices in alcoholic cirrhosis Excessive bleeding Gastric reflux History of alcoholism History of esophageal varices History of GI bleed Hypotension Injury of head and neck Liver cirrhosis, alcoholic Marijuana use Near syncope Pancytopenia Peripheral arterial disease Severe sepsis with acute organ dysfunction Smoker Spontaneous bacterial peritonitis Thrombocytopenia Varices of esophagus determined by endoscopy Walker as ambulation aid Wears glasses Home Medications ferrous sulfate [iron] 325 mg PO DAILY 03/20/18 [History Last Taken 03/11/20] magnesium oxide 400 mg PO TID 03/12/20 [History Last Taken 03/11/20] potassium chloride 10 meq PO BID 03/12/20 [History Last Taken 03/11/20] trazodone 100 mg PO QHS PRN 12/03/20 [History Last Taken Unknown] furosemide 20 mg PO DAILY 12/04/20 [History Last Taken Unknown] spironolactone 50 mg PO BID 12/04/20 [History Last Taken Unknown] tramadol 50 mg tablet 50 mg PO Q6H PRN #20 tab 12/17/20 [Rx Last Taken Unknown] thiamine HCl (vitamin B1) 100 mg tablet 100 mg PO DAILY #30 tab 12/20/20 [Rx Last Taken Unknown] midodrine 10 mg PO TID 10/28/21 [History Last Taken 01/01/21 09:00] multivitamin 1 tab PO DAILY 12/27/20 [History Last Taken Unknown] meclizine 12.5 mg tablet 12.5 mg PO TID PRN #90 tab 01/25/21 [Rx Last Taken Unknown] promethazine 25 mg PO Q6H PRN PRN #12 tablet 04/11/21 [Rx Last Taken Unknown] lactulose 10 g PO DAILY 05/22/21 [History Last Taken Unknown] pantoprazole 40 mg PO BID 05/22/21 [History Last Taken Unknown] ondansetron 4 mg PO Q6H PRN #10 tab 05/24/21 [Rx Last Taken Unknown] promethazine [Promethegan] 25 mg MO Q6H PRN PRN #6 suppos. 06/12/21 [Rx Last Taken Unknown] ondansetron 4 mg PO Q8H PRN #10 tab 06/14/21 [Rx Last Taken Unknown] promethazine 25 mg PO TID PRN #20 tab 06/14/21 [Rx Last Taken Unknown] Allergy/AdvReac Type Severity Reaction Status Date / Time No Known Allergies Allergy Verified 06/17/21 20:17 Family History Mother Cancer Father Lupus Surgical History History of esophagogastroduodenoscopy (EGD) History of removal of cyst Social History household members: none Smoking Status: Current every day smoker tobacco type: cigarettes alcohol intake: current alcohol intake frequency: a few times a week substance use type: does not use ROS ROS ED Constitutional Constitutional ED: Denies chills, fever(s) or sweats ENT ENT ED: Denies rhinorrhea or sore throat Cardiovascular Cardiovascular: Denies chest pain or palpitations Respiratory/Chest Respiratory/Chest: Denies cough or dyspnea Gastrointestinal Gastrointestinal: Reports abdominal pain and nausea; Denies constipation, diarrhea or vomiting Genitourinary Genitourinary ED: Denies dysuria or hematuria Musculoskeletal Musculoskeletal: Denies arthralgias or myalgias Integumentary Denies rash Neurologic Neurologic: Denies headache(s) Psychiatric Psychiatric: Denies anxiety or depression EXAM Physical Exam Const Vital Signs: 06/17/21 20:14 Temperature 96.9 F L Temperature Source Temporal Pulse Rate 91 Respiratory Rate 18 Blood Pressure 140/54 H Blood Pressure Mean 82 Pulse Ox 98 Oxygen Delivery Method Room Air Positive well nourished General Appearance ED: NAD; Negative for pallor HEENT normocephalic and atraumatic Eyes PERRL and EOMs intact bilaterally General Eye ED: Negative for pale conjunctiva or scleral icterus Resp normal respiratory effort and clear to auscultation bilaterally Cardio regular rate and regular rhythm GI non-distended GI Narrative: Generalized tenderness. No peritoneal signs. No fluid wave. Palpation: soft Neuro Sensorium / Orientation: alert, oriented to person, oriented to place and oriented to time Psych mental status grossly normal Skin General Skin Exam: Negative for jaundice or pallor MDM MDM MDM Narrative Medical decision making narrative: Presenting with abdominal pain which is generalized and diffuse. He states his symptoms started hurting him after he had some beer and ate a cheeseburger. His abdominal exam is benign. I obtained blood work due to his medical history and risk factors and his CBC is at baseline. Creatinine normal. Electrolytes normal. LFTs are stable. Lipase 161. EtOH 4. Patient was treated with IV fluids and Haldol. I do not believe he needs any imaging since his blood work is at baseline. He is counseled to discontinue drinking as it seems to be the source of his abdominal pain and nausea. He has Zofran and Phenergan at home. He is discharged in stable condition. Impression: 1. Nausea/vomiting 2. Abdominal Lab Data Attestation: I reviewed the patient's lab results. Labs: Laboratory Results - last 24 hr 06/17/21 06/17/21 06/17/21 22:05 22:05 22:05 WBC 2.6 L RBC 4.04 L Hgb 13.2 Hct 39.2 L MCV 97.0 H MCH 32.7 H MCHC 33.7 RDW Std Deviation 57.3 H RDW Coeff of Delilah 15.9 H Plt Count 31 L* MPV 11.1 Immature Gran % (Auto) 0.400 Neut % (Auto) 77.8 H Lymph % (Auto) 14.0 L [place] % (Auto) 7.8 Eos % (Auto) 0.0 Baso % (Auto) 0.0 Absolute Neuts (auto) 2.0 Absolute Lymphs (auto) 0.36 L Nucleated RBC % 0 Differential Comment Diff Path Review May foll Sodium 137 Potassium 4.2 Chloride 104 Carbon Dioxide 27.0 Anion Gap 6 BUN 7 Creatinine 0.66 L Estim Creat Clear Calc 126.77 Est GFR (MDRD) Af Amer 159 Est GFR (MDRD) Non-Af 132 BUN/Creatinine Ratio 10.7 Glucose 142 H Calcium 8.8 Total Bilirubin 1.10 H AST 42 H ALT 32 Alkaline Phosphatase 92 Total Protein 7.4 Albumin 3.3 Globulin 4.1 Albumin/Globulin Ratio 0.8 L Lipase 161 Ethyl Alcohol 4.0 Discharge Plan Triage Chief Complaint: Abd Pain ED Provider: Orlando Adames Dx/Rx/DC Orders Prescriptions: No Action tramadol 50 mg tablet 50 mg PO Q6H PRN (Reason: pain) Qty: 20 RF: 0 ferrous sulfate [iron] 325 MG tablet 325 mg PO DAILY RF: 0 potassium chloride 10 MEQ tablet extended release 10 meq PO BID RF: 0 magnesium oxide 400 MG tablet 400 mg PO TID RF: 0 trazodone 100 mg Tablet 100 mg PO QHS PRN (Reason: sleep) RF: 0 furosemide 20 mg tablet 20 mg PO DAILY RF: 0 spironolactone 50 mg tablet 50 mg PO BID RF: 0 multivitamin Tablet 1 tab PO DAILY RF: 0 midodrine 10 mg tablet 10 mg PO TID RF: 0 promethazine 25 MG tablet 25 mg PO Q6H PRN PRN (Reason: Nausea) Qty: 12 RF: 0 pantoprazole 40 mg tablet,delayed release (DR/EC) 40 mg PO BID RF: 0 lactulose 10 gram/15 mL solution 10 g PO DAILY RF: 0 ondansetron 4 mg tablet,disintegrating 4 mg PO Q6H PRN (Reason: nausea and vomiting) Qty: 10 RF: 0 promethazine [Promethegan] 25 MG suppository 25 mg MO Q6H PRN PRN (Reason: Nausea) Qty: 6 RF: 0 ondansetron 4 mg tablet,disintegrating 4 mg PO Q8H PRN (Reason: nausea and vomiting) Qty: 10 RF: 0 promethazine 25 mg tablet 25 mg PO TID PRN (Reason: nausea and vomiting) Qty: 20 RF: 0 thiamine HCl (vitamin B1) [Vitamin B-1] 100 mg tablet 100 mg PO DAILY Qty: 30 RF: 2 meclizine 12.5 mg tablet 12.5 mg PO TID PRN (Reason: dizziness) Qty: 90 RF: 2 Primary Care Provider: Alice Cuellar
[2021-06-17 22:36] LABS: ALB/GLOB Ratio 0.8 RATIO (0.9-2.4); AST(SGOT) 42 U/L (15-37); Alanine Aminotransfer ALT/SGPT 32 U/L (16-61); Albumin, Serum 3.3 g/dL (3.2-5.0); Alkaline Phosphatase 92 U/L (45-117); Anion Gap 6 (5-15); BUN 7 mg/dL (7-18); BUN/Creat Ratio 10.7 RATIO (10-20); Calcium,Total 8.8 mg/dL (8.5-10.1); Chloride 104 mmol/L (98-107); Creatinine, Serum 0.66 mg/dL (0.70-1.30); EST Glomerular Filtration Rate 132 mL/min (>60); Est Glom Filt Rate - Afr Amer 159 mL/min (>60); Estimated Creatinine Clearance 126.77 ml/min; Globulin 4.1 g/dL (2.2-4.2); Glucose 142 mg/dL (74-106); Lipase 161 U/L (73-393); Potassium 4.2 mmol/L (3.5-5.1); Protein, Total 7.4 g/dL (6.4-8.2); Sodium Level 137 mmol/L (136-145)
[2021-06-18 13:20] LABS: Pathologist Review Reviewed
== END 2021-06-17 23:53 | disposition home or self-care (01) ==
PROVIDERS: Emergency Provider Student in an Organized Health Care Education/Training Program; PCP Family Medicine; Visit Provider Student in an Organized Health Care Education/Training Program
DX: R11.2 Nausea with vomiting, unspecified (principal); K74.60 Unspecified cirrhosis of liver; R10.84 Generalized abdominal pain; F17.210 Nicotine dependence, cigarettes, uncomplicated; Z79.899 Other long term (current) drug therapy
CPT/HCPCS: 80053; 82077; 83690; 85025; 99283; J7030; A4216

== ENCOUNTER → 2021-12-03 | Outpatient (CLI) | payer MEDICARE, MEDICAID, SELFPAY ==
--- NOTE | 2021-12-03 06:20 | ECHOD_ITS ---
Reason For Study: ABNORMAL EKG Procedure This was a 2D Doppler, Color Flow transthoracic echocardiogram. The exam was of adequate technical quality. Exam performed in department. Left Ventricle Normal LV size. Left ventricular systolic function is normal. The estimated ejection fraction is 70 %. No evidence for diastolic dysfunction. No regional wall motion abnormalities noted. Right Ventricle Normal RV size. Normal systolic function. Atria The left atrium is mildly enlarged. Normal right atrium. No doppler evidence for ASD. Mitral Valve There is no mitral annular calcification. Normal mitral valve. The mitral papillary muscle appears thickened and/or calcified. Trivial mitral valve insufficiency. Tricuspid Valve Normal tricuspid valve. Trivial tricuspid valve insufficiency. Right ventricular systolic pressure estimated to be 28 mmHg. Aortic Valve Trisinus/trileaflet aortic valve. Mild diffuse aortic valve thickening. Aortic valve sclerosis/mild aortic valve stenosis. Pulmonic Valve The pulmonic valve is not well visualized. Great Vessels Normal sized aortic root. Pericardium/Pleural No pericardial effusion. MMode/2D Measurements & Calculations LVIDd: 4.7 cm IVSd: 1.0 cm LVOT diam: 2.0 cm LVIDs: 2.9 cm LVPWd: 1.1 cm LVOT area: 3.1 cm2 RVDd: 3.6 cm FS: 39.4 % Ao root diam: 3.3 cm LAV(MOD-bp): 80.4 ml LA A4 area: 25.8 cm2 LAV(MOD-bp) Indexed: 38.9 ml/m2 LAV(MOD-sp2): 70.7 ml LAV(MOD-sp4): 87.4 ml LA dimension(2D): 4.0 cm RA A4 area: 16.6 cm2 Time Measurements MV dec time: 0.22 sec Doppler Measurements & Calculations MV E max kvng: 90.1 cm/sec Lat Peak E' Kvng: 12.2 cm/sec Med Peak E' Kvng: 8.8 cm/sec MV A max kvng: 96.5 cm/sec E/E' lat: 7.4 E/E' med: 10.3 MV E/A: 0.93 MV dec slope: 402.7 cm/sec2 Ao V2 max: 225.4 cm/sec LV V1 max: 132.4 cm/sec Ao max P.3 mmHg LV V1 max P.0 mmHg Ao V2 mean: 148.2 cm/sec LV V1 mean P.2 mmHg Ao mean P.0 mmHg LV V1 mean: 97.2 cm/sec Ao V2 VTI: 41.9 cm LV V1 VTI: 27.3 cm CROW(I,D): 2.0 cm2 CROW(V,D): 1.8 cm2 SV(LVOT): 84.7 ml PA V2 max: 142.1 cm/sec TR max kvng: 250.3 cm/sec TR max P.1 mmHg ECHO/Echo Complete Interpretation Summary Left ventricular systolic function is normal. The estimated ejection fraction is 70 %. The left atrium is mildly enlarged. The mitral papillary muscle appears thickened and/or calcified. Trivial mitral valve insufficiency. Trivial tricuspid valve insufficiency. Aortic valve sclerosis/mild aortic valve stenosis. Right ventricular systolic pressure estimated to be 28 mmHg. No evidence for diastolic dysfunction. Ordering Physician: Dillon Bobo Referring Physician: Alice Cuellar Performed By: Donna Black, BRUNA, RVT
--- NOTE | 2021-12-03 08:53 | STRESSREP_ITS ---
Stress Test Report Date: 12-03-2021 Procedure: Pharmacologic stress nuclear imaging study Indications: Abnormal ECG; preoperative cardiovascular evaluation Consent: Per the patient Procedure: The patient underwent pharmacologic (Regadenoson 0.4mg ) evaluation with a peak heart rate of 97 beats per minute (61%predicted maximal heart rate) and a peak blood pressure of 140/62 mmHg. The baseline ECG demonstrated normal sinus rhythm. The peak pharmacologic ECG demonstrated no obvious ECG changes. There were no cardiac dysrhythmias pretest, during pharmacologic infusion, or recovery. There was no complaint of chest discomfort during pharmacologic infusion or recovery. The examination was discontinued secondary to completion of protocol. Impression: 1. Pharmacologic (Regadenoson) evaluation 2. Peak pharmacologic ECG with no obvious ECG changes. 3. There were no cardiac dysrhythmias pretest, during pharmacologic infusion, or recovery. 4. Nuclear images pending Myocardial perfusion imaging study: Technique: The patient was injected with 14.3 millicuries of technetium 99m Cardiolite and subsequently rest SPECT Cardiolite nuclear imaging was obtained in the horizontal long, vertical long, and short axis views. The patient underwent pharmacologic (Regadenoson) evaluation with a peak heart rate of 97 beats per minute (61% percent predicted maximal heart rate) and a peak blood pressure of 140/62 mmHg. The patient was injected with 45.0 millicuries of technetium 99m Cardiolite and subsequently stress SPECT Cardiolite nuclear imaging was obtained in the horizontal long, vertical long, and short axis views. A gated Cardiolite study at peak stress was obtained. Interpretation: Rest and stress SPECT Cardiolite nuclear imaging status post realignment, normalization, and attenuation correction demonstrate relative uniform tracer uptake and myocardial perfusion appearing within normal limits. There is end systolic thickening and brightening. The gated Cardiolite study demonstrates myocardial thickening and inward wall motion. The reported LVEF is 75%. Impression: 1. Rest and stress SPECT Cardiolite nuclear imaging demonstrate relative uniform tracer uptake and myocardial perfusion appearing within normal limits. 2. The gated Cardiolite study reports an LVEF of 75%. This note was generated with [employer] software. It may contain incorrect words, spelling, and punctuation that were not noted in checking the note before signing.
== END | disposition home or self-care (01) ==
LOC: CVS 06:16
PROVIDERS: PCP Family Medicine; Visit Provider Internal Medicine Cardiovascular Disease
DX: Z01.810 Encounter for preprocedural cardiovascular examination (principal); I73.9 Peripheral vascular disease, unspecified; R94.31 Abnormal electrocardiogram [ECG] [EKG]; I10 Essential (primary) hypertension
CPT/HCPCS: 78452; 93017; 93306; A9500; A4216; J2785

== ENCOUNTER 2021-12-14 23:19 | Observation (INO) | payer MEDICARE, MEDICAID, SELFPAY ==
[2021-12-14 23:20] VITALS: BP 150/66; PULSE 88; RESP 17; TEMP 36.9; O2SAT 95; BMI 29.9
[2021-12-15] VITALS (10 sets, daily range): BP systolic 128–164; BP diastolic 62–88; PULSE 63–100; RESP 16–18; TEMP 36.6–37.4; O2SAT 95–98; BMI 29.7
--- NOTE | 2021-12-15 | EX.ED.GENINJ ---
HPI History of Present Illness Chief Complaint: Nausea/Vomiting Narrative Narrative: 61-year-old male here for nausea vomiting. Patient has history of hypertension, alcoholism, biliary colic, gallstones, hepatic cirrhosis, esophageal varices. The patient states he developed intractable nausea and vomiting approximately 12 PM, approximate 12 hours prior to arrival. He states his symptoms are constant, severe without alleviating factors. Does note hematemesis, no iwona bleeding but blood streaks in vomitus. Denies any melena or hematochezia. Does note diffuse abdominal pain. +EtOH use in the last 24 hours. Old chart reviewed: Last CT scan showed no evidence of acute abnormality. Frequent ED utilizer Excerpt from surgical consultation in April 2021 (1) Cholelithiasis: (2) Abdominal pain: (3) Intractable nausea and vomiting: (4) Alcoholism: (5) Cirrhosis: (6) Varices of esophagus determined by endoscopy: PLAN: ? ? ? Did review CT abdomen pelvis as well as HIDA scan with the patient.? Pt abdominal pain may correspond to his large abdominal wall varices which are in the right lower quadrant to the umbilicus.? However these have not been large previously as well.? Patient does see Dr. Sheldon for the EGDs/esophageal variceal banding.? He states they did discuss possible liver transplant however patient does still drink 5 beers a week thus he would not qualify for liver transplant currently. Patient CT abdomen pelvis and question whether he had cholecystitis.? HIDA scan was completed without CCK which showed visualization of the gallbladder ruling out cholecystitis.? Also due to patient's cirrhosis and abdominal varices patient would not be a surgical candidate at this hospital would need to have surgery at a tertiary care center if patient were to surgery. [facility] Medical History (Updated 12/15/21 @ 05:[address] Kale Toledo, ) Alcoholic cirrhosis Alcoholism Aortic aneurysm without rupture Arthritis Cannabis hyperemesis syndrome concurrent with and due to cannabis abuse Chronic abdominal pain Chronic anemia Chronic pain Diastolic dysfunction Esophageal varices in alcoholic cirrhosis Gastric reflux History of esophageal varices History of GI bleed Hypotension Low iron Marijuana use Pancytopenia Peripheral arterial disease Restless legs Thrombocytopenia Tobacco use Varices of esophagus determined by endoscopy Walker as ambulation aid Wears glasses Home Medications ferrous sulfate 325 mg (65 mg iron) tablet (iron) 325 mg PO DAILY supplement 01/19/19 [History Last Taken 07/18/21] magnesium oxide 400 mg (241.3 mg magnesium) tablet 400 mg PO TID supplement 03/12/20 [History Last Taken 03/11/20] potassium chloride 10 mEq tablet,extended release 10 meq PO BID supplement 03/12/20 [History Last Taken 03/11/20] tramadol 50 mg tablet 50 mg PO Q6H PRN pain #20 tabs 12/17/20 [Rx Last Taken Unknown] thiamine HCl (vitamin B1) 100 mg tablet (Vitamin B-1) 100 mg PO DAILY vitamin #30 tabs 12/20/20 [Rx Last Taken Unknown] multivitamin 1 tab PO DAILY supplement 12/27/20 [History Last Taken Unknown] meclizine 12.5 mg tablet 12.5 mg PO TID PRN dizziness #90 tabs 01/25/21 [Rx Last Taken Unknown] pantoprazole 40 mg tablet,delayed release 40 mg PO BID gerd 05/22/21 [History Last Taken Unknown] trazodone 100 mg tablet 100 mg PO QHS 07/18/21 [History Last Taken Unknown] furosemide 20 mg tablet (Lasix) 20 mg PO DAILY #30 tabs 11/07/21 [Rx Last Taken Unknown] lactulose 10 gram/15 mL oral solution 30 g (45 mL) PO DAILY Check with primary doctor #237 mL 11/07/21 [Rx Last Taken Unknown] midodrine 10 mg tablet 10 mg PO TID hypotension #30 tabs 11/07/21 [Rx Last Taken Unknown] promethazine 25 mg tablet 25 mg PO BID PRN nausea and vomiting #60 tabs 11/07/21 [Rx Last Taken Unknown] rifaximin 550 mg tablet (Xifaxan) 550 mg PO BID 11/14/21 [History Last Taken Unknown] spironolactone 50 mg tablet 50 mg PO BID 11/14/21 [History Last Taken Unknown] Allergy/AdvReac Type Severity Reaction Status Date / Time No Known Allergies Allergy Verified 12/14/21 23:25 Family History Mother Cancer Father Lupus Surgical History History of abdominal aortic aneurysm repair (~2013) History of esophagogastroduodenoscopy (EGD) History of removal of cyst Social History (Updated 12/15/21 @ 00:[address] Antonella Tariq MD) household members: none Smoking Status: Current every day smoker tobacco type: cigarettes alcohol intake: current alcohol intake frequency: a few times a week substance use type: marijuana caffeine: No ROS ROS ED Eyes Eyes: Denies other visual disturbances ENT ENT ED: Denies ear pain Cardiovascular Cardiovascular: Denies chest pain Respiratory/Chest Respiratory/Chest: Denies dyspnea Gastrointestinal Gastrointestinal: Reports abdominal pain, nausea, vomiting and other Details: Hematemesis Genitourinary Genitourinary ED: Denies dysuria Musculoskeletal Musculoskeletal: Denies joint pain Integumentary Denies rash Neurologic Neurologic: Denies dizziness, focal weakness, numbness, syncope or weakness Psychiatric Psychiatric: Denies homicidal ideation or suicidal ideation EXAM Physical Exam Narrative Exam Narrative: Nursing triage notes reviewed, Vital signs reviewed Constitutional: please see mdm HENT: MMM, dried blood noted over right nares Eyes: Pupils equal round and reactive to light, Extraocular muscles intact Neck: No stridor, no JVD, full neck ROM Lungs: Clear to auscultation, No wheezing or rales. No increased work of breathing, no conversational dyspnea, no accessory muscle use, no nasal flaring. No respiratory distress noted Heart: Regular rate and rhythm, No murmurs, No rubs and No gallops, 2+ distal pulses (radial, femoral, posterior tibial) in all extremities Abdomen: Soft, there diffuse TTP but no rigidity, rebound or guarding, no obvious peritoneal signs, no palpable pulsatile abdominal masses, no auscultated abdominal bruit : No CVAT Extremities: No edema Neuro: No focal neurological deficits, cranial nerves II through XII intact, 5/5 strength in all extremities. Intact sensation to light touch in all extremities, 2+ reflexes bilateral patella dens. Normal gait. No ataxia. Skin: No rash or lesions noted Const Vital Signs: 12/14/21 23:20 12/15/21 01:19 12/15/21 03:00 Temperature 98.5 F Temperature Source Temporal Pulse Rate 88 80 82 Respiratory Rate 17 16 16 Blood Pressure 150/66 H 164/73 H 156/88 H Blood Pressure Mean 94 103 110 Pulse Ox 95 98 98 Oxygen Delivery Method Room Air Room Air Room Air [facility] MDM MDM Narrative Medical decision making narrative: 61-year-old male here with abdominal pain, nausea vomiting, hematemesis in the setting of alcohol abuse, liver cirrhosis and esophageal varices status post banding. Patient was hemodynamically stable, afebrile, nontoxic-appearing. Exam with diffuse abdominal TTP. Obtained a broad lab and imaging work-up to further elucidate etiology the patient complaint specifically concerned about intra-abdominal pathology such as obstruction, perforation, severe anemia, electrode abnormalities associated with his nausea and vomiting. I gave 1 L of normal saline, Zofran, morphine for pain control. Lab Data Lab results narrative: CBC with no leukocytosis, mild anemia, note severe thrombocytopenia improved from baseline CMP without significant electrolyte abnormalities, no evidence of endorgan hypoperfusion, no acute kidney injury, noted mild elevation AST and alkaline phosphatase suggest hepatobiliary pathology Lipase within normal limits, no evidence of pancreatitis Labs: Laboratory Results - last 24 hr 12/14/21 12/14/21 12/14/21 23:38 23:38 23:38 WBC 4.4 RBC 3.76 L Hgb 12.6 L Hct 36.6 L MCV 97.3 H MCH 33.5 H MCHC 34.4 RDW Std Deviation 54.8 H RDW Coeff of Delilah 15.2 H Plt Count 46 L* MPV 11.1 Immature Gran % (Auto) 0.200 Neut % (Auto) 59.1 Lymph % (Auto) 28.0 [place] % (Auto) 11.6 H Eos % (Auto) 0.9 Baso % (Auto) 0.2 Absolute Neuts (auto) 2.6 Absolute Lymphs (auto) 1.23 Nucleated RBC % 0 Differential Comment SCANNED Diff Path Review May foll Platelet Estimate MKD DEC Sodium 142 Potassium 3.7 Chloride 110 H Carbon Dioxide 22.0 Anion Gap 10 BUN 7 Creatinine 0.58 L Estim Creat Clear Calc 142.45 Est GFR (MDRD) Af Amer 182 Est GFR (MDRD) Non-Af 150 BUN/Creatinine Ratio 12.0 Glucose 139 H Calcium 7.8 L Total Bilirubin 1.10 H AST 57 H ALT 39 Alkaline Phosphatase 120 H Troponin I High Sens 12 Total Protein 6.6 Albumin 2.6 L Globulin 4.0 Albumin/Globulin Ratio 0.6 L Lipase 186 Blood Type A NEGATIVE Antibody Screen NEGATIVE Radiography Diagnostic Testing: Clinical Impression(s) from Imaging Studies Abdomen/Pelvis CT 12/15/21 01:57 IMPRESSION: 1. Findings suggest acute cholecystitis. Correlate clinically and with ultrasound. 2. Cirrhosis and splenomegaly with no ascites. 3. Dilated main portal vein without thrombosis. Electronically Signed: Nahum Siddiqi MD at 2:17 EDT , Abdomen Ultrasound 12/15/21 02:38 IMPRESSION: Cholelithiasis. Liver cirrhosis. Electronically Signed: Skylar Galeana MD at 5:22 EDT , EKG Initial EKG: Comments: EKG with normal sinus rhythm, normal axis, slightly prolonged QT, no STEMI Treatment and Re-Evaluation Narrative: Patient continued to have pain and ongoing n/v. Treated with a second dose of Zofran followed by Reglan also gave dilaudid, reassess patient after CT results showed evidence of acute cholecystitis patient did have right upper quadrant tenderness and a positive Beatty sign on repeat evaluation. Obtained a right upper quadrant ultrasound this time. Right upper quadrant ultrasound showed no acute surgical pathology. Patient still symptomatic. Given ongoing symptoms admit the patient to observation to the Med/Surg floor. Discussed with Dr. Tariq. Discharge Plan Triage Chief Complaint: Nausea/Vomiting ED Provider: Kale Toledo Dx/Rx/DC Orders Clinical Impression: Hematemesis, Cirrhosis, Alcoholism, Thrombocytopenia, Esophageal varices Prescriptions: No Action tramadol 50 mg tablet 50 mg PO Q6H PRN (Reason: pain) Qty: 20 0RF spironolactone 50 mg tablet 50 mg PO BID Xifaxan 550 mg tablet 550 mg PO BID ferrous sulfate [iron] 325 MG tablet 325 mg PO DAILY Label Comments: pt states will stop 12/30/[address] Sheldon instruction potassium chloride 10 MEQ tablet extended release 10 meq PO BID magnesium oxide 400 MG tablet 400 mg PO TID Rx Instructions: takes with meals multivitamin Tablet 1 tab PO DAILY trazodone 100 mg Tablet 100 mg PO QHS pantoprazole 40 mg tablet,delayed release (DR/EC) 40 mg PO BID Label Comments: TAKE 1 TABLET BY MOUTH TWICE DAILY thiamine HCl (vitamin B1) [Vitamin B-1] 100 mg tablet 100 mg PO DAILY Qty: 30 2RF meclizine 12.5 mg tablet 12.5 mg PO TID PRN (Reason: dizziness) Qty: 90 2RF furosemide [Lasix] 20 mg tablet 20 mg PO DAILY Qty: 30 1RF lactulose 10 gram/15 mL solution 30 g PO DAILY Qty: 237 1RF midodrine 10 mg tablet 10 mg PO TID Qty: 30 1RF Rx Instructions: do not give last dose of day after 6PM or within 4 hrs of bedtime promethazine 25 mg tablet 25 mg PO BID PRN (Reason: nausea and vomiting) Qty: 60 0RF Primary Care Provider: Alice Cuellar Referrals: Alice Cuellar DO [Primary Care Provider] -
--- NOTE | 2021-12-15 00:17 | EKG12_ITS ---
Test Reason : Blood Pressure : / mmHG Vent. Rate : 075 BPM Atrial Rate : 075 BPM P-R Int : 178 ms QRS Dur : 092 ms QT Int : 448 ms P-R-T Axes : 070 065 072 degrees QTc Int : 500 ms Normal sinus rhythm Prolonged QT Abnormal ECG Confirmed by AMANDA DAN, DEYANIRA ([id number]), brands editor ANNABELLA TRIANA ([id number]) on 12/17/2021 8:19:39 AM Referred By: KILO Confirmed By:DEYANIRA PATEL MD
[2021-12-15] MEDS: Ondansetron 4 MG/2 ML Vial IV ×2 (00:30→01:46)
[2021-12-15] MEDS: Morphine 4 MG/ML Syringe IV ×2 (00:30→01:12)
[2021-12-15] MEDS: 0.9% Normal Saline 1,000 ML 1000 ML IV (00:31)
[2021-12-15 00:40] LABS: Absolute Lymphocyte Count 1.23 X10^3/uL (0.83-4.51); Absolute Neutrophil Count 2.6 X10^3/uL (2.0-7.7); Basophil# 0.01 X10^3/uL; Basophil% 0.2 % (0-1); Eosinophil# 0.04 X10^3/uL; Eosinophils% 0.9 % (0-5); Hematocrit 36.6 % (40-54); Hemoglobin 12.6 g/dL (13.0-16.5); Lymphocyte # 1.23 X10^3/ul (0.83-4.51); Mean Corp Hgb Conc 34.4 g/dL (32-36); Mean Corpuscular Hgb 33.5 pg (27.0-32.0); Mean Corpuscular Volume 97.3 fL (80-94); Mean Platelet Vol. 11.1 fl (6.2-12.0); Monocyte# 0.51 X10^3/uL; Monocyte% 11.6 % (0-10); NRBC Flagged by Analyzer 0 % (0-5); Neutrophil # 2.59 X10^3/uL (2.7-7.7); Neutrophil % 59.1 % (47-70); POSITIVE COUNT YES; RBC Distribution Width CV 15.2 % (11.6-14.6); RBC Distribution Width SD 54.8 fl (35.1-43.9); Red Blood Count 3.76 M/mm3 (4.6-6.2); White Blood Count 4.4 K/mm3 (4.4-11.0)
[2021-12-15 00:42] LABS: Differential Indicated SCAN CRITERIA MET; Platelet Count 46 K/mm3 (150-450)
[2021-12-15 00:55] LABS: ALB/GLOB Ratio 0.6 RATIO (0.9-2.4); AST(SGOT) 57 U/L (15-37); Alanine Aminotransfer ALT/SGPT 39 U/L (16-61); Albumin, Serum 2.6 g/dL (3.2-5.0); Alkaline Phosphatase 120 U/L (45-117); Anion Gap 10 (5-15); BUN 7 mg/dL (7-18); Calcium,Total 7.8 mg/dL (8.5-10.1); Chloride 110 mmol/L (98-107); Creatinine, Serum 0.58 mg/dL (0.70-1.30); EST Glomerular Filtration Rate 150 mL/min (>60); Est Glom Filt Rate - Afr Amer 182 mL/min (>60); Estimated Creatinine Clearance 142.45 ml/min; Glucose 139 mg/dL (74-106); Lipase 186 U/L (73-393); Potassium 3.7 mmol/L (3.5-5.1); Protein, Total 6.6 g/dL (6.4-8.2); Sodium Level 142 mmol/L (136-145); Troponin-I HS 12 pg/mL (3.0-78.0)
[2021-12-15 01:07] LABS: Differential Comment SCANNED; Platelet Estimate MKD DEC (ADEQ)
--- NOTE | 2021-12-15 01:57 | CT_ITS ---
EXAM: CT ABDOMEN AND PELVIS WITH INTRAVENOUS CONTRAST CLINICAL INDICATION: diffuse abdominal pain TECHNIQUE: Helically acquired images were obtained of the abdomen and pelvis with intravenous contrast. CTDIvol = ( 14.95 ) mGy, DLP = ( 1122.92 ) mGycm This CT exam was performed using one or more of the following dose reduction techniques: automated exposure control, adjustment of the mA and/or kV according to patient size, and/or use of iterative reconstruction technique. This report was created using [employer] report generation technology. CONTRAST: IV 100mL [id number] COMPARISON: None. FINDINGS: LOWER THORAX: Definite atelectasis at the posterior lower lobes. No cardiomegaly. No significant pericardial effusion. ABDOMEN: LIVER: Unremarkable. Homogeneous. No focal mass. GALLBLADDER AND BILE DUCTS: Cholelithiasis. Stranding about the distended gallbladder. No intra- or extrahepatic biliary ductal dilation. PANCREAS: Unremarkable. No focal cystic or solid mass. SPLEEN: 17 cm spleen. Splenic vein is patent.. ADRENALS: Unremarkable. No nodules. KIDNEYS AND URETERS: Unremarkable. Normal renal size and position. No hydronephrosis. STOMACH AND BOWEL: No inflammatory or obstructive changes of bowel. Distal colonic diverticulosis without acute diverticulitis. No colitis. No bowel obstruction. PELVIS: APPENDIX: No evidence of acute appendicitis. BLADDER: Unremarkable. REPRODUCTIVE: Unremarkable as visualized. No mass. ABDOMEN and PELVIS: INTRAPERITONEAL SPACE: No free air or free fluid. BONES/JOINTS: Unremarkable. No suspicious lytic or blastic abnormality. SOFT TISSUES: Unremarkable. No discrete abdominal or pelvic wall hernia. VASCULATURE: Dilated portal veins with recanalization of the paraumbilical vein. No portal venous thrombosis. LYMPH NODES: Unremarkable. No enlarged lymph nodes. CT/Abdomen/Pelvis W IV Cont ONLY IMPRESSION: 1. Findings suggest acute cholecystitis. Correlate clinically and with ultrasound. 2. Cirrhosis and splenomegaly with no ascites. 3. Dilated main portal vein without thrombosis. Electronically Signed: Nahum Siddiqi MD at 2:17 EDT ,
--- NOTE | 2021-12-15 02:38 | US_ITS ---
STUDY: ABDOMINAL ULTRASOUND - RIGHT UPPER QUADRANT REASON FOR VISIT: Male, 61 years old RUQ TTP r/o acute cholecystitis TECHNIQUE: Ultrasound evaluation of the right upper quadrant was performed with real-time and static gomez-scale imaging. TECHNICAL QUALITY: Adequate. COMPARISON: None. FINDINGS: Liver: The liver measures 13.5 cm. There is a heterogeneous echogenicity of the liver. The bile ducts are within normal limits. There is hepatic color flow. The direction of portal flow is hepatopetal. There is no demonstrated mass lesion. There is small amount of free fluid in the right upper quadrant Gallbladder: Irregular gallbladder wall likely due to liver cirrhosis measuring up to 5.7 mm in maximum thickness. There is a negative sonographic Beatty''s sign. There is no pericholecystic fluid. There are multiple echogenic structures within the gallbladder, consistent with multiple gallstones. Common Bile Duct (C.B.D.): The common bile duct measures 4.8 mm. Pancreas: Normal size of the head, body and tail of the pancreas. There is normal echogenicity of the pancreas. There is no demonstrated pancreatic mass or cyst. Right Kidney: Normal size of the right kidney. The right kidney measures 11.7 cm. Normal renal cortex. The right cortex measures 1.8 cm. There is no demonstrated renal mass or cyst. There is no right hydronephrosis. US/Abdomen Limited IMPRESSION: Cholelithiasis. Liver cirrhosis. Electronically Signed: Skylar Galeana MD at 5:22 EDT ,
[2021-12-15] MEDS: HYDROmorphone 1 MG/ML Syringe 0.5 MG IV (02:51)
[2021-12-15] MEDS: Metoclopramide 10 MG/2 ML Vial IV (02:51)
--- NOTE | 2021-12-15 05:28 | PCM.HP.STD ---
HPI - General General Date of Admission: 12/15/21 Date of Service: 12/15/21 Chief Complaint: Intractable abdominal pain, N/V HPI Narrative The patient is a 61 y/o M w/ PMHx: Chronic anemia/Fe deficiency anemia, EtOH abuse, Chronic pancytopenia secondary to EtOH abuse, PAD, Tobacco use, Liver cirrhosis with esophageal varices and GI bleed who presents to the [facility] ED on 12/15/21 with history of onset intractable nausea and emesis with occasional blood streaked emesis with no recent melena or hematochezia with concurrent diffuse abdominal discomfort starting at ~ noon on day prior to presentation prompting eventual ED presentation. He notes upon evaluation in the ED that his pain has improved and upon palpation has no grimacing or rebound. In the ED work-up included T98.5, heart rate 88, BP 150/66, respiratory rate 17, 95% on room air, CBC with WC 4.4, hemoglobin 12.6, platelet 46 without marked shift, CMP with chloride 110, BUN/creatinine 7/0.58, glucose 139, calcium 7.8, total bilirubin 1.10, AST/ALT 57/39, alk phos 120, lipase 26, troponin 12, CT A/P with IV contrast w/ findings suggestive of acute cholecystitis, cirrhosis and splenomegaly with no ascites, dilated main portal vein without thrombosis with follow-up GB US with evidence cholelithiasis and liver cirrhosis, type and screen performed per ED physician. In the ED patient ministered normal saline bolus, morphine 4 mg IV x1 and Zofran 4 mg IV x1, Reglan 10 mg IV x1, Dilaudid 0.5 mg IV x1. [facility] Medical History (Updated 12/15/21 @ 05:[address] Antonella Tariq MD) Alcoholic cirrhosis Alcoholism Aortic aneurysm without rupture Arthritis Cannabis hyperemesis syndrome concurrent with and due to cannabis abuse Chronic abdominal pain Chronic anemia Chronic pain Diastolic dysfunction Esophageal varices in alcoholic cirrhosis Gastric reflux History of esophageal varices History of GI bleed Hypotension Low iron Marijuana use Pancytopenia Peripheral arterial disease Restless legs Thrombocytopenia Tobacco use Varices of esophagus determined by endoscopy Walker as ambulation aid Wears glasses Home Medications ferrous sulfate 325 mg (65 mg iron) tablet (iron) 325 mg PO DAILY supplement 03/20/18 [History Last Taken 07/18/21] magnesium oxide 400 mg (241.3 mg magnesium) tablet 400 mg PO TID supplement 03/12/20 [History Last Taken 03/11/20] potassium chloride 10 mEq tablet,extended release 10 meq PO BID supplement 03/12/20 [History Last Taken 03/11/20] tramadol 50 mg tablet 50 mg PO Q6H PRN pain #20 tabs 12/17/20 [Rx Last Taken Unknown] thiamine HCl (vitamin B1) 100 mg tablet (Vitamin B-1) 100 mg PO DAILY vitamin #30 tabs 12/20/20 [Rx Last Taken Unknown] multivitamin 1 tab PO DAILY supplement 12/27/20 [History Last Taken Unknown] meclizine 12.5 mg tablet 12.5 mg PO TID PRN dizziness #90 tabs 01/25/21 [Rx Last Taken Unknown] pantoprazole 40 mg tablet,delayed release 40 mg PO BID gerd 05/22/21 [History Last Taken Unknown] trazodone 100 mg tablet 100 mg PO QHS 07/18/21 [History Last Taken Unknown] furosemide 20 mg tablet (Lasix) 20 mg PO DAILY #30 tabs 11/07/21 [Rx Last Taken Unknown] lactulose 10 gram/15 mL oral solution 30 g (45 mL) PO DAILY Check with primary doctor #237 mL 11/07/21 [Rx Last Taken Unknown] midodrine 10 mg tablet 10 mg PO TID hypotension #30 tabs 11/07/21 [Rx Last Taken Unknown] promethazine 25 mg tablet 25 mg PO BID PRN nausea and vomiting #60 tabs 11/07/21 [Rx Last Taken Unknown] rifaximin 550 mg tablet (Xifaxan) 550 mg PO BID 11/14/21 [History Last Taken Unknown] spironolactone 50 mg tablet 50 mg PO BID 11/14/21 [History Last Taken Unknown] Allergy/AdvReac Type Severity Reaction Status Date / Time No Known Allergies Allergy Verified 12/14/21 23:25 Family History Mother Cancer Father Lupus Surgical History History of abdominal aortic aneurysm repair (~2013) History of esophagogastroduodenoscopy (EGD) History of removal of cyst Social History (Updated 12/15/21 @ 00:[address] Antonella Tariq MD) household members: none Smoking Status: Current every day smoker tobacco type: cigarettes alcohol intake: current alcohol intake frequency: a few times a week substance use type: marijuana caffeine: No ROS ROS Narrative Admission Review of Systems: CONSTITUTIONAL: No weight loss, fever, chills, +weakness or fatigue. HEENT: Eyes: No visual loss, blurred vision, double vision or yellow sclerae. Ears, Nose, Throat: No hearing loss, sneezing, congestion, runny nose or sore throat. SKIN: + Ecchymosis, significant bilateral lower extremity venous stasis skin changes. CARDIOVASCULAR: No chest pain, chest pressure or chest discomfort, palpitations, edema, orthopnea, syncopal events. RESPIRATORY: No shortness of breath, cough or sputum, wheezing, hemoptysis. GASTROINTESTINAL: + Abdominal discomfort, intractable nausea and emesis, chronic loose stools, streaks of blood in his emesis but not iwona, No anorexia, melena, BRBPR. GENITOURINARY: No dysuria, frequency, urgency or retention. NEUROLOGICAL: No headache, dizziness, syncope, paralysis, ataxia, numbness or tingling in the extremities, focal weakness, change in bowel or bladder control, seizure. MUSCULOSKELETAL:+ muscle, back pain, joint pain or stiffness. HEMATOLOGIC: + anemia, bleeding or bruising. LYMPHATICS: No enlarged nodes. No history of splenectomy. PSYCHIATRIC: No history of depression or anxiety. ENDOCRINOLOGIC: No reports of sweating, cold or heat intolerance. No polyuria or polydipsia. ALLERGIES: No history of asthma, hives, eczema or rhinitis. Vital Signs Vital Signs Vital Signs: 12/14/21 23:20 12/15/21 01:19 12/15/21 03:00 Temperature 98.5 F Temperature Source Temporal Pulse Rate 88 80 82 Respiratory Rate 17 16 16 Blood Pressure 150/66 H 164/73 H 156/88 H Blood Pressure Mean 94 103 110 Pulse Ox 95 98 98 Oxygen Delivery Method Room Air Room Air Room Air Weight Weight: 215 lb 2.738 oz Body Mass Index (BMI) 29.9 Physical Exam Narrative Physical Examination: General: Awake, alert, oriented x 3 and cooperative, laying in the ED bed, notes abdominal discomfort improving. Skin: Normal color, normal turgor, no icterus, no cyanosis except significant chronic bilateral lower extremity venous stasis skin changes and occasional staged ecchymoses. HEENT: AT/NC, EOMI, PERRLA, mildly dry MM, poor oral care, no carotid bruits or JVD noted. Lungs: Diminished, greater bases, appropriate effort, no rales, ronchi or wheezing. Heart: Regular rate and rhythm; no gallop, rub audible. Abdomen: Soft, recent pain regimen of note, abd NTTP to both manual and deep stethoscope evaluation, no marked distention or fluid wave, mildly hyperactive bowel sounds, + HM. Extremities: No cyanosis, clubbing, or edema. Neurological: Patient awake, alert, oriented x 3, cognitive function intact; pupils equally reactive to light and accommodation, cranial nerves II-XII grossly normal, moving all 4 extremities, no focal deficits, strength mildly to moderately globally decreased secondary to acute presentation and complaints as well as recent sedative pain medications. Psychiatric: Affect appears fatigued, reports discomfort improving, no acute evidence of depressive or anxiety feelings. Results Lab / Micro Data Result Diagrams: 12/14/21 23:38 12/14/21 23:38 Labs: Laboratory Results - last 24 hr 12/14/21 23:38: WBC 4.4, RBC 3.76 L, Hgb 12.6 L, Hct 36.6 L, MCV 97.3 H, MCH 33.5 H, MCHC 34.4, RDW Std Deviation 54.8 H, RDW Coeff of Delilah 15.2 H, Plt Count 46 L*, MPV 11.1, Immature Gran % (Auto) 0.200, Neut % (Auto) 59.1, Lymph % (Auto) 28.0, [place] % (Auto) 11.6 H, Eos % (Auto) 0.9, Baso % (Auto) 0.2, Absolute Neuts (auto) 2.6, Absolute Lymphs (auto) 1.23, Nucleated RBC % 0, Differential Comment SCANNED, Diff Path Review May raquel Platelet Estimate MKD 12/14/21 23:38: Blood Type A NEGATIVE, Antibody Screen NEGATIVE 12/14/21 23:38: Sodium 142, Potassium 3.7, Chloride 110 H, Carbon Dioxide 22.0, Anion Gap 10, BUN 7, Creatinine 0.58 L, Estim Creat Clear Calc 142.45, Est GFR (MDRD) Af Amer 182, Est GFR (MDRD) Non-Af 150, BUN/Creatinine Ratio 12.0, Glucose 139 H, Calcium 7.8 L, Total Bilirubin 1.10 H, AST 57 H, ALT 39, Alkaline Phosphatase 120 H, Troponin I High Sens 12, Total Protein 6.6, Albumin 2.6 L, Globulin 4.0, Albumin/Globulin Ratio 0.6 L, Lipase 186 Radiology Impression Abdomen/Pelvis CT 12/15/21 01:57 IMPRESSION: 1. Findings suggest acute cholecystitis. Correlate clinically and with ultrasound. 2. Cirrhosis and splenomegaly with no ascites. 3. Dilated main portal vein without thrombosis. Electronically Signed: Nahum Siddiqi MD at 2:17 EDT , Abdomen Ultrasound 12/15/21 02:38 IMPRESSION: Cholelithiasis. Liver cirrhosis. Electronically Signed: Skylar Galeana MD at 5:22 EDT , Assessment & Plan Assessment/Plan (1) Intermittent generalized abdominal pain: PLAN: Plan The patient is a 61 y/o M w/ PMHx: Chronic anemia/Fe deficiency anemia, EtOH abuse, Chronic pancytopenia secondary to EtOH abuse, PAD, Tobacco use, Liver cirrhosis with esophageal varices and GI bleed who presents to the [facility] ED on 12/15/21 with history of onset intractable nausea and emesis with occasional blood streaked emesis with no recent melena or hematochezia with concurrent diffuse abdominal discomfort starting at ~ noon on day prior to presentation prompting eventual ED presentation. #1. Intractable nausea, emesis, abdominal pain suspected secondary to large abdominal wall varices RLQ with occasional blood streaked emesis (not witnessed in the ED) although some concern for potential malingering: Will admit to MS for pain control, maintain on judicious IVFs, NPO status until discomfort improving with then ADAT, PPI, IV/po pain control, trend CBC, CMP. As soon as pain seems to esther and patient able to tolerate food would very promptly de-escalate pain regimen given concerns. If any notable hematemesis would obtain STAT H+H and would request GI involvement. #2. Chronic liver cirrhosis: Secondary to alcohol abuse, will continue spironolactone, Lasix, lactulose, rifaximin chronic regimen. #3. Chronic pancytopenia: Admission CBC with WC 4.4, hemoglobin 12.6, platelet 46, similar to prior, planned Plts transfusion for OR as noted, will continue to trend. #4. Chronic anemia/iron deficiency anemia: Admission hemoglobin 12.6, stable, continue iron supplementation and hemoglobin trending, maintain on home Fe supplementation. #5. EtOH Abuse: Patient notes routine consumption ongoing of several beers per week but reports decreasing his amount over time. Will maintain on CIWA protocol, MVI, thiamine and folic acid. Magnesium and phosphorus levels requested. If necessary may initiate phenobarbital taper. #6. GERD with history of variceal bleed status post banding: Most recent EGD noted 01/2021 with banding at that time, continue PPI as noted. #7. Tobacco Abuse: Encouraged cessation, inpatient consultation per RT, NR if desired. #8. DVT prophylaxis: SCDs, defer chemoprophylaxis given chronic pancytopenia. Charges/Coding Visit Charges OBSV E&M: 91933 Initial observation care L3
[2021-12-15 05:57] LABS: Magnesium 1.6 mg/dL (1.6-2.6); Phosphorus 3.6 mg/dL (2.5-4.9)
[2021-12-15] MEDS: Potassium Chloride Oral Tablet 10 MEQ PO ×2 (07:44→16:47)
[2021-12-15] MEDS: Pantoprazole Sodium 40 MG Tablet PO ×2 (07:44→21:09)
[2021-12-15] MEDS: Furosemide 20 MG Tablet PO (07:44)
[2021-12-15] MEDS: Thiamine Hydrochloride 100 MG Tablet PO (07:44)
[2021-12-15] MEDS: Midodrine HCl 5 MG Tablet 10 MG PO ×3 (07:44→16:46)
[2021-12-15] MEDS: Lactulose 20 GM/30 ML UDC 30 GM PO (07:45)
[2021-12-15] MEDS: Magnesium Chloride 64 MG Delay Rel.Tablet 128 MG PO ×3 (07:45→16:46)
[2021-12-15] MEDS: Spironolactone 50 MG Tablet PO ×2 (07:46→21:09)
[2021-12-15] MEDS: Multivitamins,Therapeutic Tablet 1 TABLET PO (07:46)
[2021-12-15] MEDS: rifAXIMin 550 MG Tablet PO ×2 (07:46→21:09)
[2021-12-15] MEDS: Folic Acid 1 MG Tablet PO (07:49)
[2021-12-15 10:54] LABS: Hematocrit 35.3 % (40-54); Hemoglobin 12.1 g/dL (13.0-16.5); POSITIVE COUNT YES
[2021-12-15] MEDS: Ferrous Sulfate 325 MG Tablet PO (11:30)
[2021-12-15] MEDS: MELATONIN 10 MG TABLET PO (21:09)
[2021-12-15] MEDS: traZODone 100 MG Tablet PO (21:09)
[2021-12-16] VITALS (9 sets, daily range): BP systolic 110–135; BP diastolic 43–66; PULSE 67–87; RESP 16–18; TEMP 36.5–37.1; O2SAT 95–98
[2021-12-16 05:00] LABS: Absolute Lymphocyte Count 1.64 X10^3/uL (0.83-4.51); Absolute Neutrophil Count 1.5 X10^3/uL (2.0-7.7); Basophil# 0.01 X10^3/uL; Basophil% 0.3 % (0-1); Eosinophil# 0.06 X10^3/uL; Eosinophils% 1.6 % (0-5); Hematocrit 34.7 % (40-54); Hemoglobin 12.2 g/dL (13.0-16.5); Lymphocyte # 1.64 X10^3/ul (0.83-4.51); Mean Corp Hgb Conc 35.2 g/dL (32-36); Mean Corpuscular Hgb 34.5 pg (27.0-32.0); Mean Platelet Vol. 10.8 fl (6.2-12.0); Monocyte# 0.55 X10^3/uL; Monocyte% 14.7 % (0-10); NRBC Flagged by Analyzer 0 % (0-5); Neutrophil # 1.46 X10^3/uL (2.7-7.7); Neutrophil % 39.1 % (47-70); POSITIVE COUNT YES; RBC Distribution Width CV 15.3 % (11.6-14.6); RBC Distribution Width SD 55.8 fl (35.1-43.9); Red Blood Count 3.54 M/mm3 (4.6-6.2); White Blood Count 3.7 K/mm3 (4.4-11.0)
[2021-12-16 05:07] LABS: Differential Indicated SCAN CRITERIA MET
[2021-12-16 05:08] LABS: Platelet Count 34 K/mm3 (150-450)
[2021-12-16 05:43] LABS: ALB/GLOB Ratio 0.8 RATIO (0.9-2.4); AST(SGOT) 44 U/L (15-37); Alanine Aminotransfer ALT/SGPT 31 U/L (16-61); Albumin, Serum 2.4 g/dL (3.2-5.0); Alkaline Phosphatase 92 U/L (45-117); Anion Gap 7 (5-15); BUN 7 mg/dL (7-18); Calcium,Total 7.8 mg/dL (8.5-10.1); Chloride 109 mmol/L (98-107); Creatinine, Serum 0.58 mg/dL (0.70-1.30); EST Glomerular Filtration Rate 150 mL/min (>60); Est Glom Filt Rate - Afr Amer 182 mL/min (>60); Estimated Creatinine Clearance 142.45 ml/min; Globulin 3.2 g/dL (2.2-4.2); Glucose 102 mg/dL (74-106); Potassium 3.4 mmol/L (3.5-5.1); Protein, Total 5.6 g/dL (6.4-8.2); Sodium Level 143 mmol/L (136-145)
[2021-12-16 05:56] LABS: Differential Comment SCANNED
[2021-12-16] MEDS: Folic Acid 1 MG Tablet PO (08:24)
[2021-12-16] MEDS: Magnesium Chloride 64 MG Delay Rel.Tablet 128 MG PO ×3 (08:24→20:32)
[2021-12-16] MEDS: Potassium Chloride Oral Tablet 20 MEQ PO (08:24)
[2021-12-16] MEDS: Thiamine Hydrochloride 100 MG Tablet PO (08:25)
[2021-12-16] MEDS: Midodrine HCl 5 MG Tablet 10 MG PO ×2 (08:25→11:56)
[2021-12-16] MEDS: Spironolactone 50 MG Tablet PO ×2 (08:25→20:33)
[2021-12-16] MEDS: Potassium Chloride Oral Tablet 10 MEQ PO ×2 (08:26→20:33)
[2021-12-16] MEDS: Lactulose 20 GM/30 ML UDC 30 GM PO (08:26)
[2021-12-16] MEDS: Pantoprazole Sodium 40 MG Tablet PO ×2 (08:26→20:33)
[2021-12-16] MEDS: Furosemide 20 MG Tablet PO (08:29)
[2021-12-16] MEDS: Multivitamins,Therapeutic Tablet 1 TABLET PO (08:29)
[2021-12-16] MEDS: rifAXIMin 550 MG Tablet PO ×2 (08:29→20:33)
[2021-12-16 11:18] LABS: Pathologist Review Reviewed
[2021-12-16 11:20] LABS: Pathologist Review Reviewed
[2021-12-16] MEDS: Ferrous Sulfate 325 MG Tablet PO (11:55)
--- NOTE | 2021-12-16 12:52 | PCM.PN.HOSP ---
Subjective Subjective DOS 12-16-2021 CC: Abdominal pain Patient complains of continued abdominal pain primarily on the right side of his abdomen, is better than when he came in but still reports a 7 out of 10 pain his nausea is getting better, he would like to try to eat something today. Has had 1 bowel movement, reports he is compliant with lactulose so does have frequent stool but nothing out of his usual. Has felt dizzy off and on, no complaints at this time. Denies chest pain or shortness of breath. Objective Data Objective Data Vital Signs: Vital Signs Temp Pulse Resp BP Pulse Ox O2 Del Method 97.7 F L 69 16 119/43 L 98 Room Air 12/16/21 10:00 12/16/21 10:00 12/16/21 10:00 12/16/21 10:00 12/16/21 10:12/16/21 10:00 Oxygen Delivery Method Room Air Weight: 93.7 kg Body Mass Index (BMI) 29.7 Intake & Output: Intake and Output for Last 24 Hours 12/14/21 12/15/21 12/16/21 23:59 23:59 23:59 Intake Total 1000.00 / 1000.00 200 / 200 Balance 1000.00 / 1000.00 200 / 200 Lab / Micro Data Result Diagrams: 12/16/21 04:21 12/16/21 04:21 Labs: Laboratory Results - last 24 hr 12/14/21 23:38: Diff Path Review Reviewed 12/16/21 04:21: WBC 3.7 L, RBC 3.54 L, Hgb 12.2 L, Hct 34.7 L, MCV 98.0 H, MCH 34.5 H, MCHC 35.2, RDW Std Deviation 55.8 H, RDW Coeff of Delilah 15.3 H, Plt Count 34 L*, MPV 10.8, Immature Gran % (Auto) 0.300, Neut % (Auto) 39.1 L, Lymph % (Auto) 44.0 H, [place] % (Auto) 14.7 H, Eos % (Auto) 1.6, Baso % (Auto) 0.3, Absolute Neuts (auto) 1.5 L, Absolute Lymphs (auto) 1.64, Nucleated RBC % 0, Differential Comment SCANNED, Diff Path Review Reviewed 12/16/21 04:21: Sodium 143, Potassium 3.4 L, Chloride 109 H, Carbon Dioxide 27.0, Anion Gap 7, BUN 7, Creatinine 0.58 L, Estim Creat Clear Calc 142.45, Est GFR (MDRD) Af Amer 182, Est GFR (MDRD) Non-Af 150, BUN/Creatinine Ratio 12.0, Glucose 102, Calcium 7.8 L, Total Bilirubin 1.90 H, AST 44 H, ALT 31, Alkaline Phosphatase 92, Total Protein 5.6 L, Albumin 2.4 L, Globulin 3.2, Albumin/Globulin Ratio 0.8 L Physical Exam Const alert Constitutional Narrative: Oriented HEENT normocephalic and head/scalp atraumatic Eyes Eyes Narrative: EOM grossly intact, anicteric Neck supple Resp normal respiratory effort and clear to auscultation bilaterally Cardio regular rate and regular rhythm GI GI Narrative: Soft to palpation, nondistended, somewhat diffusely tender primarily on the right side of the abdomen, no rebound, guarding, rigidity. Patient able to tolerate abdominal exam without significant discomfort Extremity Extremity Narrative: No edema appreciated Neuro moves all extremities Neuro Narrative: No overt focal deficits appreciated Psych Psych Narrative: Cooperative Assessment & Plan Assessment/Plan (1) Intermittent generalized abdominal pain: PLAN: Plan The patient is a 61 y/o M w/ PMHx: Chronic anemia/Fe deficiency anemia, EtOH abuse, Chronic pancytopenia secondary to EtOH abuse, PAD, Tobacco use, Liver cirrhosis with esophageal varices and GI bleed who presents to the [facility] ED on 12/15/21 with history of onset intractable nausea and emesis with occasional blood streaked emesis with no recent melena or hematochezia with concurrent diffuse abdominal discomfort starting at ~ noon on day prior to presentation prompting eventual ED presentation. 1. Severe abdominal pain Is improving, does have chronic pain after surgery 6 years ago Follow[address] with Dr. Sheldon as an outpatient Will see if patient can tolerate oral intake, pain control 2. Intractable nausea and vomiting Improving Will advance diet Has received fluids Zofran and Phenergan as needed 3. Chronic liver cirrhosis Secondary to alcohol abuse On spironolactone, Lasix Continue lactulose and rifaximin Continue to follow with GI as an outpatient. 4. Chronic pancytopenia Admission CBC with WC 4.4, hemoglobin 12.6, platelet 46, similar to prior Continue to monitor while inpatient 5. Chronic anemia/iron deficiency anemia Admission hemoglobin 12.6, stable, continue iron supplementation and hemoglobin trending, maintain on home Fe supplementation. 6. EtOH Abuse Had endorsed several beers a week and that he was decreasing over time Was started on CIWA, has not required any Ativan Continue thiamine and folate 7. GERD with history of variceal bleed status post banding: Most recent EGD noted 01/2021 with banding at that time, continue PPI as noted. #7. Tobacco Abuse: Encouraged cessation #8. DVT prophylaxis: SCDs, defer chemoprophylaxis given chronic pancytopenia. Charges/Coding Visit Charges OBSV E&M: 63436 Subsequent observation care L2
--- NOTE | 2021-12-16 16:12 | CASEMGMT ---
VAL NEGRON in to discuss RODAS form with patient. VAL NEGRON explained RODAS form, patient voiced understanding. Pt signed form and filed in chart. Pt provided with a copy of signed RODAS form. Patient had no further questions or concerns at this time. Pt has a FWW at home, states he is active with Palliative Care, email to them to make aware pt is hospitalized. Pt denies any homegoing needs.
[2021-12-16] MEDS: traZODone 100 MG Tablet PO (20:34)
[2021-12-16] MEDS: MELATONIN 10 MG TABLET PO (20:34)
[2021-12-17 03:38] VITALS: BP 117/44; PULSE 77; RESP 18; TEMP 36.7; O2SAT 99
[2021-12-17] MEDS: 0.9% Saline Lock 10 ML Syringe IV (05:49)
[2021-12-17] MEDS: Ondansetron 4 MG/2 ML Vial IV (05:49)
[2021-12-17] MEDS: traMADol 50 MG Tablet 100 MG PO ×2 (05:53→20:49)
[2021-12-17 05:59] VITALS: BP 142/58; PULSE 75; RESP 18; TEMP 36.8; O2SAT 100
--- NOTE | 2021-12-17 06:15 | EKG12_ITS ---
Test Reason : CP Blood Pressure : / mmHG Vent. Rate : 077 BPM Atrial Rate : 077 BPM P-R Int : 170 ms QRS Dur : 092 ms QT Int : 454 ms P-R-T Axes : 057 057 062 degrees QTc Int : 513 ms Normal sinus rhythm Prolonged QT Abnormal ECG Confirmed by AMANDA DAN, DEYANIRA ([id number]), associate entertainment editor ANNABELLA TRIANA ([id number]) on 12/19/2021 12:49:51 PM Referred By: PEACE Confirmed By:DEYANIRA PATEL MD
[2021-12-17 06:51] LABS: Absolute Lymphocyte Count 1.51 X10^3/uL (0.83-4.51); Absolute Neutrophil Count 1.8 X10^3/uL (2.0-7.7); Basophil# 0.01 X10^3/uL; Basophil% 0.3 % (0-1); Eosinophil# 0.04 X10^3/uL; Hematocrit 36.5 % (40-54); Hemoglobin 12.5 g/dL (13.0-16.5); Lymphocyte # 1.51 X10^3/ul (0.83-4.51); Lymphocyte % 38.2 % (19-41); Mean Corp Hgb Conc 34.2 g/dL (32-36); Mean Corpuscular Hgb 33.3 pg (27.0-32.0); Mean Corpuscular Volume 97.3 fL (80-94); Mean Platelet Vol. 10.5 fl (6.2-12.0); Monocyte# 0.53 X10^3/uL; Monocyte% 13.4 % (0-10); NRBC Flagged by Analyzer 0 % (0-5); Neutrophil # 1.84 X10^3/uL (2.7-7.7); Neutrophil % 46.6 % (47-70); POSITIVE COUNT YES; RBC Distribution Width CV 15.1 % (11.6-14.6); RBC Distribution Width SD 53.9 fl (35.1-43.9); Red Blood Count 3.75 M/mm3 (4.6-6.2)
[2021-12-17 06:54] LABS: Differential Indicated SCAN CRITERIA MET; Platelet Count 35 K/mm3 (150-450)
[2021-12-17 07:11] LABS: Differential Comment SCANNED
[2021-12-17 07:14] LABS: ALB/GLOB Ratio 0.7 RATIO (0.9-2.4); AST(SGOT) 52 U/L (15-37); Alanine Aminotransfer ALT/SGPT 36 U/L (16-61); Albumin, Serum 2.6 g/dL (3.2-5.0); Alkaline Phosphatase 95 U/L (45-117); Anion Gap 6 (5-15); BUN 7 mg/dL (7-18); BUN/Creat Ratio 11.5 RATIO (10-20); Calcium,Total 8.1 mg/dL (8.5-10.1); Chloride 112 mmol/L (98-107); Creatinine, Serum 0.61 mg/dL (0.70-1.30); EST Glomerular Filtration Rate 143 mL/min (>60); Est Glom Filt Rate - Afr Amer 173 mL/min (>60); Estimated Creatinine Clearance 135.44 ml/min; Globulin 3.5 g/dL (2.2-4.2); Glucose 104 mg/dL (74-106); Potassium 3.2 mmol/L (3.5-5.1); Protein, Total 6.1 g/dL (6.4-8.2); Sodium Level 145 mmol/L (136-145)
[2021-12-17 07:35] VITALS: BP 119/63; PULSE 82; RESP 18; TEMP 36.9; O2SAT 93
[2021-12-17] MEDS: Multivitamins,Therapeutic Tablet 1 TABLET PO (07:46)
[2021-12-17] MEDS: Midodrine HCl 5 MG Tablet 10 MG PO ×3 (07:46→16:49)
[2021-12-17] MEDS: Folic Acid 1 MG Tablet PO (07:46)
[2021-12-17] MEDS: Thiamine Hydrochloride 100 MG Tablet PO (07:46)
[2021-12-17] MEDS: Magnesium Chloride 64 MG Delay Rel.Tablet 128 MG PO ×3 (07:46→16:50)
[2021-12-17] MEDS: Potassium Chloride Oral Tablet 10 MEQ PO ×2 (07:46→16:50)
--- NOTE | 2021-12-17 08:25 | PN.HOSP_ITS ---
Subjective Subjective DOS 12/17/2021 CC: Abdominal pain Endorses he has continued abdominal pain, did eat yesterday although had poor appetite and did not eat much, did report nausea after that. Continues to have multiple bowel movements, taking lactulose once daily at this time. Denies shortness of breath, did report some chest aching has been present since last night, EKG obtained. Will order troponins this a.m. Patient feels generally unwell Objective Data Objective Data Vital Signs: Vital Signs Temp Pulse Resp BP Pulse Ox O2 Del Method 98.5 F 82 18 119/63 93 Room Air 12/17/21 07:35 12/17/21 07:35 12/17/21 07:35 12/17/21 07:35 12/17/21 07:35 12/17/21 07:58 Oxygen Delivery Method Room Air Weight: 93.7 kg Body Mass Index (BMI) 29.7 Intake & Output: Intake and Output for Last 24 Hours 12/15/21 12/16/21 12/17/21 23:59 23:59 23:59 Intake Total 1000.00 / 1000.00 500 / 1000 900 / 900 Balance 1000.00 / 1000.00 500 / 1000 900 / 900 Lab / Micro Data Result Diagrams: 12/17/21 06:17 12/17/21 06:17 Labs: Laboratory Results - last 24 hr 12/14/21 23:38: Diff Path Review Reviewed 12/16/21 04:21: Diff Path Review Reviewed 12/17/21 06:17: WBC 4.0 L, RBC 3.75 L, Hgb 12.5 L, Hct 36.5 L, MCV 97.3 H, MCH 33.3 H, MCHC 34.2, RDW Std Deviation 53.9 H, RDW Coeff of Delilah 15.1 H, Plt Count 35 L*, MPV 10.5, Immature Gran % (Auto) 0.500, Neut % (Auto) 46.6 L, Lymph % (Auto) 38.2, [place] % (Auto) 13.4 H, Eos % (Auto) 1.0, Baso % (Auto) 0.3, Absolute Neuts (auto) 1.8 L, Absolute Lymphs (auto) 1.51, Nucleated RBC % 0, Differential Comment SCANNED, Diff Path Review June12/17/21 06:17: Sodium 145, Potassium 3.2 L, Chloride 112 H, Carbon Dioxide 27.0, Anion Gap 6, BUN 7, Creatinine 0.61 L, Estim Creat Clear Calc 135.44, Est GFR (MDRD) Af Amer 173, Est GFR (MDRD) Non-Af 143, BUN/Creatinine Ratio 11.5, Glucose 104, Calcium 8.1 L, Total Bilirubin 1.30 H, AST 52 H, ALT 36, Alkaline Phosphatase 95, Total Protein 6.1 L, Albumin 2.6 L, Globulin 3.5, Albumin/Globulin Ratio 0.7 L Physical Exam Const alert Constitutional Narrative: Oriented HEENT normocephalic and head/scalp atraumatic Eyes Eyes Narrative: EOM grossly intact, anicteric Neck supple Resp normal respiratory effort and clear to auscultation bilaterally Cardio regular rate and regular rhythm GI GI Narrative: Soft to palpation, nondistended, somewhat diffusely tender primarily on the right side, no rebound, guarding, rigidity. Extremity Extremity Narrative: No edema appreciated Neuro moves all extremities Neuro Narrative: No overt focal deficits appreciated Psych Psych Narrative: Cooperative Assessment & Plan Assessment/Plan (1) Intermittent generalized abdominal pain: PLAN: Plan The patient is a 61 y/o M w/ PMHx: Chronic anemia/Fe deficiency anemia, EtOH abuse, Chronic pancytopenia secondary to EtOH abuse, PAD, Tobacco use, Liver cirrhosis with esophageal varices and GI bleed who presents to the [facility] ED on 12/15/21 with history of onset intractable nausea and emesis with occasional blood streaked emesis with no recent melena or hematochezia with concurrent diffuse abdominal discomfort starting at ~ noon on day prior to presentation prompting eventual ED presentation. #Severe abdominal pain Is improving, does have chronic pain after surgery 6 years ago Follow[address] with Dr. Sheldon as an outpatient Tolerated oral intake somewhat though continued anorexia and nausea Will assess how he does with breakfast prior to further dispo #Atypical chest pain Reports chest aching though it is center of the chest, reports has not changed much since last night Will review EKG Given multiple risk factors will also obtain troponin #Intractable nausea and vomiting Diet advanced with some reported nausea after eating, will assess this a.m. again after breakfast Has received fluids Zofran and Phenergan as needed #Chronic liver cirrhosis Secondary to alcohol abuse On spironolactone, Lasix Continue lactulose and rifaximin Continue to follow with GI as an outpatient. #Chronic pancytopenia Admission CBC with WC 4.4, hemoglobin 12.6, platelet 46, similar to prior Continue to monitor while inpatient #Chronic anemia/iron deficiency anemia Admission hemoglobin 12.6, stable, continue iron supplementation and hemoglobin trending, maintain on home Fe supplementation. #EtOH Abuse Had endorsed several beers a week and that he was decreasing over time Was started on CIWA, has not required any Ativan Continue thiamine and folate #GERD with history of variceal bleed status post banding: Most recent EGD noted 01/2021 with banding at that time, continue PPI as noted. #Tobacco Abuse: Encouraged cessation Consent DVT prophylaxis: SCDs, defer chemoprophylaxis given chronic pancytopenia. Charges/Coding Visit Charges OBSV E&M: 37526 Subsequent observation care L2
[2021-12-17 09:25] LABS: Troponin-I HS 14 pg/mL (3.0-78.0)
[2021-12-17] MEDS: Spironolactone 50 MG Tablet PO ×2 (09:39→22:17)
[2021-12-17] MEDS: Furosemide 20 MG Tablet PO (09:39)
[2021-12-17] MEDS: rifAXIMin 550 MG Tablet PO ×2 (09:39→22:18)
[2021-12-17] MEDS: Lactulose 20 GM/30 ML UDC 30 GM PO (09:39)
[2021-12-17] MEDS: Pantoprazole Sodium 40 MG Tablet PO ×2 (09:39→22:18)
[2021-12-17] MEDS: Potassium Chloride Oral Tablet 20 MEQ PO (09:39)
[2021-12-17] MEDS: Ensure Plus High Protein 120 ML LIQUID PO ×3 (09:44→16:50)
[2021-12-17 12:13] VITALS: BP 136/73; PULSE 76; RESP 18; TEMP 36.8; O2SAT 94
[2021-12-17] MEDS: Ferrous Sulfate 325 MG Tablet PO (12:15)
[2021-12-17 13:59] LABS: Pathologist Review Reviewed
--- NOTE | 2021-12-17 14:17 | CASEMGMT ---
Received confirmation from Palliative care that they are current with patient.
--- NOTE | 2021-12-17 15:57 | CASEMGMT ---
Social Work SW in to pt room to discuss substance use. SW offered education on effect of alcholo and other substances on health. Pt voiced understanding and agreed with discussion. SW offered resources for counseling and SA treatment. Pt agreeable to SW leaving information. Pt stated might take a look at the information in my free time and appeared genuine. SW exchanged pleasantries with pt and encouraged pt to get rest. Encouraged pt to reach out if other needs/concerns arise. [facility] [place]
[2021-12-17 16:47] VITALS: BP 126/67; PULSE 76; RESP 18; TEMP 36.8; O2SAT 96
[2021-12-17] MEDS: Calcium Carbonate 500 MG Tablet 1000 MG PO ×2 (16:50→20:49)
[2021-12-17] MEDS: MELATONIN 10 MG TABLET PO (22:18)
[2021-12-17] MEDS: traZODone 100 MG Tablet PO (22:18)
[2021-12-17] MEDS: Gabapentin 300 MG Capsule PO (22:26)
[2021-12-17 22:48] VITALS: BP 121/70; PULSE 78; RESP 16; TEMP 36.8; O2SAT 94
[2021-12-18 04:00] VITALS: BP 102/53; PULSE 78; RESP 16; TEMP 36.6; O2SAT 97
[2021-12-18 06:22] LABS: Absolute Lymphocyte Count 1.53 X10^3/uL (0.83-4.51); Absolute Neutrophil Count 1.8 X10^3/uL (2.0-7.7); Basophil# 0.01 X10^3/uL; Basophil% 0.2 % (0-1); Eosinophil# 0.06 X10^3/uL; Eosinophils% 1.5 % (0-5); Hematocrit 38.3 % (40-54); Lymphocyte # 1.53 X10^3/ul (0.83-4.51); Lymphocyte % 37.5 % (19-41); Mean Corp Hgb Conc 33.9 g/dL (32-36); Mean Corpuscular Hgb 33.2 pg (27.0-32.0); Mean Corpuscular Volume 97.7 fL (80-94); Mean Platelet Vol. 10.7 fl (6.2-12.0); Monocyte# 0.63 X10^3/uL; Monocyte% 15.4 % (0-10); NRBC Flagged by Analyzer 0 % (0-5); Neutrophil # 1.84 X10^3/uL (2.7-7.7); Neutrophil % 45.2 % (47-70); POSITIVE COUNT YES; RBC Distribution Width SD 53.7 fl (35.1-43.9); Red Blood Count 3.92 M/mm3 (4.6-6.2); White Blood Count 4.1 K/mm3 (4.4-11.0)
[2021-12-18 06:26] LABS: Differential Indicated SCAN CRITERIA MET; Platelet Count 35 K/mm3 (150-450)
[2021-12-18 06:37] LABS: Anisocytosis 1+; Macrocytosis 1+; Platelet Estimate MKD DEC (ADEQ)
[2021-12-18 06:45] LABS: ALB/GLOB Ratio 0.7 RATIO (0.9-2.4); AST(SGOT) 55 U/L (15-37); Alanine Aminotransfer ALT/SGPT 39 U/L (16-61); Albumin, Serum 2.5 g/dL (3.2-5.0); Alkaline Phosphatase 91 U/L (45-117); Anion Gap 6 (5-15); BUN 7 mg/dL (7-18); BUN/Creat Ratio 11.5 RATIO (10-20); Calcium,Total 8.1 mg/dL (8.5-10.1); Chloride 109 mmol/L (98-107); Creatinine, Serum 0.61 mg/dL (0.70-1.30); EST Glomerular Filtration Rate 143 mL/min (>60); Est Glom Filt Rate - Afr Amer 173 mL/min (>60); Estimated Creatinine Clearance 135.44 ml/min; Globulin 3.4 g/dL (2.2-4.2); Glucose 95 mg/dL (74-106); Potassium 3.8 mmol/L (3.5-5.1); Protein, Total 5.9 g/dL (6.4-8.2); Sodium Level 141 mmol/L (136-145)
[2021-12-18 07:56] VITALS: O2SAT 96
[2021-12-18 08:07] VITALS: BP 112/73; PULSE 82; RESP 16; TEMP 36.6; O2SAT 97
[2021-12-18] MEDS: rifAXIMin 550 MG Tablet PO (08:31)
[2021-12-18] MEDS: Magnesium Chloride 64 MG Delay Rel.Tablet 128 MG PO (08:31)
[2021-12-18] MEDS: Furosemide 20 MG Tablet PO (08:31)
[2021-12-18] MEDS: Potassium Chloride Oral Tablet 10 MEQ PO (08:31)
[2021-12-18] MEDS: Thiamine Hydrochloride 100 MG Tablet PO (08:31)
[2021-12-18] MEDS: Midodrine HCl 5 MG Tablet 10 MG PO (08:31)
[2021-12-18] MEDS: Multivitamins,Therapeutic Tablet 1 TABLET PO (08:32)
[2021-12-18] MEDS: Folic Acid 1 MG Tablet PO (08:32)
[2021-12-18] MEDS: Pantoprazole Sodium 40 MG Tablet PO (08:32)
[2021-12-18] MEDS: Lactulose 20 GM/30 ML UDC 30 GM PO (08:33)
[2021-12-18] MEDS: Spironolactone 50 MG Tablet PO (08:33)
[2021-12-18] MEDS: Ensure Plus High Protein 120 ML LIQUID PO (08:35)
[2021-12-18 09:42] LABS: Pathologist Review Reviewed
--- NOTE | 2021-12-18 10:11 | PCM.DC ---
Discharge Instructions Diet Discharge Diet: No restrictions Activity Discharge Activity: Return to Normal Activity Follow Up Care Test Results: Test results from this visit will be discussed in further detail at your follow-up appointment, if applicable. Discharge Plan Admission Admit Date/Time: 12/15/21 05:20 Primary Reason for Your Visit: Intractable nausea Attending Provider: Sravanthi oCol Primary Care Provider: lAice Cuellar Consulting Providers: Antonella Tariq ; Rigoberto Jose Instructions Additional Instructions / Restrictions: *Please take this with you to your next doctors appointment* -Continue to follow with your stomach doctor- Dr. Sheldon, upon discharge -Continue your home tramadol as well as your other home medications -Please call your primary care provider's office upon discharge to schedule a hospital follow up within 1 week. -For any concerning signs or symptoms please call 911 or proceed to the nearest emergency department Discharge Orders/Prescriptions Prescriptions: Continued tramadol 50 mg tablet 50 mg PO Q6H PRN (Reason: pain) Qty: 20 0RF spironolactone 50 mg tablet 50 mg PO BID Xifaxan 550 mg tablet 550 mg PO BID ferrous sulfate [iron] 325 MG tablet 325 mg PO DAILY Label Comments: pt states will stop 12/30/[address] Sheldon instruction potassium chloride 10 MEQ tablet extended release 10 meq PO BID magnesium oxide 400 MG tablet 400 mg PO TID Rx Instructions: takes with meals multivitamin Tablet 1 tab PO DAILY trazodone 100 mg Tablet 100 mg PO QHS pantoprazole 40 mg tablet,delayed release (DR/EC) 40 mg PO BID Label Comments: TAKE 1 TABLET BY MOUTH TWICE DAILY thiamine HCl (vitamin B1) [Vitamin B-1] 100 mg tablet 100 mg PO DAILY Qty: 30 2RF meclizine 12.5 mg tablet 12.5 mg PO TID PRN (Reason: dizziness) Qty: 90 2RF furosemide [Lasix] 20 mg tablet 20 mg PO DAILY Qty: 30 1RF lactulose 10 gram/15 mL solution 30 g PO DAILY Qty: 237 1RF midodrine 10 mg tablet 10 mg PO TID Qty: 30 1RF Rx Instructions: do not give last dose of day after 6PM or within 4 hrs of bedtime promethazine 25 mg tablet 25 mg PO BID PRN (Reason: nausea and vomiting) Qty: 60 0RF Referrals / Follow Up: Alice Cuellar DO [Primary Care Provider] - Within 1 Week FriendHugo DO [Med Staff - Active Staff] - (Please continue to follow up with your outpatient consultant internship, Friend) Disposition Disposition (needs filled in before D/C Order can be placed): Home, Self Care
--- NOTE | 2021-12-18 10:25 | PCM.DC.SUM ---
Providers Date of Admission: 12/15/21 Date of Discharge: 12/18/21 Primary Care Physician: Dr. Alice Cuellar DO Reason For Visit: INTRACTABLE N/V, ABD PAIN Diagnosis Discharge Diagnosis (1) Intermittent generalized abdominal pain: Status: Acute Code(s): R10.84 - Generalized abdominal pain Plan #Severe abdominal pain #Atypical chest pain #Intractable nausea and vomiting #Chronic liver cirrhosis #Chronic pancytopenia #Chronic anemia/iron deficiency anemia #EtOH Abuse #GERD with history of variceal bleed status post banding: #Tobacco Abuse: Medications at Discharge Home Medications ferrous sulfate 325 mg (65 mg iron) tablet (iron) 325 mg PO DAILY supplement 03/20/18 magnesium oxide 400 mg (241.3 mg magnesium) tablet 400 mg PO TID supplement 03/12/20 potassium chloride 10 mEq tablet,extended release 10 meq PO BID supplement 03/12/20 tramadol 50 mg tablet 50 mg PO Q6H PRN pain #20 tabs 12/17/20 thiamine HCl (vitamin B1) 100 mg tablet (Vitamin B-1) 100 mg PO DAILY vitamin #30 tabs 12/20/20 multivitamin 1 tab PO DAILY supplement 12/27/20 meclizine 12.5 mg tablet 12.5 mg PO TID PRN dizziness #90 tabs 01/25/21 pantoprazole 40 mg tablet,delayed release 40 mg PO BID gerd 05/22/21 trazodone 100 mg tablet 100 mg PO QHS 07/18/21 furosemide 20 mg tablet (Lasix) 20 mg PO DAILY #30 tabs 11/07/21 lactulose 10 gram/15 mL oral solution 30 g (45 mL) PO DAILY Check with primary doctor #237 mL 11/07/21 midodrine 10 mg tablet 10 mg PO TID hypotension #30 tabs 11/07/21 promethazine 25 mg tablet 25 mg PO BID PRN nausea and vomiting #60 tabs 11/07/21 rifaximin 550 mg tablet (Xifaxan) 550 mg PO BID 11/14/21 spironolactone 50 mg tablet 50 mg PO BID 11/14/21 Hospital Course Summary of Care Provided Minutes Spent on Discharge: 32 Hospital Course: Mr. Dillon is a 61-year-old male with a past medical history of chronic anemia, alcohol abuse, chronic pancytopenia secondary to alcohol use, PAD, tobacco use, liver cirrhosis with esophageal varices and history of GI bleed who presented to [facility] ED on 12/15/2021 with intractable nausea and emesis for about 1 day. Additionally had abdominal pain, which is chronic but was worse when he presented. CT with IV contrast had findings suggestive of acute cholecystitis/cirrhosis/splenomegaly with no ascites as well as dilated main portal vein without thrombosis. Follow-up gallbladder ultrasound, however, with evidence of cholelithiasis and cirrhosis without note of acute cholecystitis and negative sonographic Beatty's. He was started on fluids and pain control. His emesis resolved and nausea significantly improved but he continued to have abdominal pain though this also returned to baseline. Diet was advanced as tolerated, he reports he has poor p.o. intake at baseline and grazes throughout the day which she was able to do prior to discharge. He was placed on CIWA due to history of alcohol use however he did not score on CIWA. On 12/17/2021 he did have an episode of an aching in his chest, EKG unremarkable and troponin negative. He was given Tums. On the morning of 12/18/2021 he had no further changes/complaints with his breathing or chest, abdominal pain was at baseline and appetite was roughly the same. He reported feeling no weaker than when he was at home and was ambulating in his room with walker. He lives at home with his and feels comfortable going home and reported she will be there to be able to help him upon discharge. Physical Exam Const alert Constitutional Narrative: Oriented HEENT normocephalic and head/scalp atraumatic Eyes Eyes Narrative: EOM grossly intact, anicteric Neck supple Resp normal respiratory effort and clear to auscultation bilaterally Cardio regular rate and regular rhythm GI GI Narrative: Soft to palpation, nondistended, somewhat diffusely tender unchanged from previous, no rebound, guarding, rigidity. Extremity Extremity Narrative: No edema appreciated Skin Skin Narrative: Does have chronic changes in bilateral legs above ankles to mid nguyen Neuro moves all extremities Neuro Narrative: No overt focal deficits appreciated Psych Psych Narrative: Cooperative Weight / BMI Weight Weight: 92.5 kg Body Mass Index (BMI) 29.7 ABG / Lab / Microbiology Data Result Diagrams: 12/18/21 05:43 12/18/21 05:43 Laboratory: Laboratory Results - last 24 hr 12/17/21 06:17: Diff Path Review Reviewed 12/18/21 05:43: WBC 4.1 L, RBC 3.92 L, Hgb 13.0, Hct 38.3 L, MCV 97.7 H, MCH 33.2 H, MCHC 33.9, RDW Std Deviation 53.7 H, RDW Coeff of Delilah 15.0 H, Plt Count 35 L*, MPV 10.7, Immature Gran % (Auto) 0.200, Neut % (Auto) 45.2 L, Lymph % (Auto) 37.5, [place] % (Auto) 15.4 H, Eos % (Auto) 1.5, Baso % (Auto) 0.2, Absolute Neuts (auto) 1.8 L, Absolute Lymphs (auto) 1.53, Nucleated RBC % 0, Diff Path Review Reviewed, Platelet Estimate MKD DEC, Anisocytosis 1+, Macrocytosis 1+ 12/18/21 05:43: Sodium 141, Potassium 3.8, Chloride 109 H, Carbon Dioxide 26.0, Anion Gap 6, BUN 7, Creatinine 0.61 L, Estim Creat Clear Calc 135.44, Est GFR (MDRD) Af Amer 173, Est GFR (MDRD) Non-Af 143, BUN/Creatinine Ratio 11.5, Glucose 95, Calcium 8.1 L, Total Bilirubin 1.60 H, AST 55 H, ALT 39, Alkaline Phosphatase 91, Total Protein 5.9 L, Albumin 2.5 L, Globulin 3.4, Albumin/Globulin Ratio 0.7 L D/C Instructions Discharge Diet: No restrictions Meaningful Use Info Meaningful Use Diagnoses (Choose all that apply): None applicable Discharge Plan Admission Admit Date/Time: 12/15/21 05:20 Primary Reason for Your Visit: Intractable nausea Attending Provider: Sravanthi Cool Primary Care Provider: Alice Cuellar Consulting Providers: Antonella Tariq ; Rigoberto Jose Instructions Patient Instructions: Cirrhosis of Liver Dc Additional Instructions / Restrictions: *Please take this with you to your next doctors appointment* -Continue to follow with your stomach doctor- Dr. Sheldon, upon discharge -Continue your home tramadol as well as your other home medications -Please call your primary care provider's office upon discharge to schedule a hospital follow up within 1 week. -For any concerning signs or symptoms please call 911 or proceed to the nearest emergency department Discharge Orders/Prescriptions Prescriptions: Continued tramadol 50 mg tablet 50 mg PO Q6H PRN (Reason: pain) Qty: 20 0RF spironolactone 50 mg tablet 50 mg PO BID Xifaxan 550 mg tablet 550 mg PO BID ferrous sulfate [iron] 325 MG tablet 325 mg PO DAILY Label Comments: pt states will stop 12/30/[address] Sheldon instruction potassium chloride 10 MEQ tablet extended release 10 meq PO BID magnesium oxide 400 MG tablet 400 mg PO TID Rx Instructions: takes with meals multivitamin Tablet 1 tab PO DAILY trazodone 100 mg Tablet 100 mg PO QHS pantoprazole 40 mg tablet,delayed release (DR/EC) 40 mg PO BID Label Comments: TAKE 1 TABLET BY MOUTH TWICE DAILY thiamine HCl (vitamin B1) [Vitamin B-1] 100 mg tablet 100 mg PO DAILY Qty: 30 2RF meclizine 12.5 mg tablet 12.5 mg PO TID PRN (Reason: dizziness) Qty: 90 2RF furosemide [Lasix] 20 mg tablet 20 mg PO DAILY Qty: 30 1RF lactulose 10 gram/15 mL solution 30 g PO DAILY Qty: 237 1RF midodrine 10 mg tablet 10 mg PO TID Qty: 30 1RF Rx Instructions: do not give last dose of day after 6PM or within 4 hrs of bedtime promethazine 25 mg tablet 25 mg PO BID PRN (Reason: nausea and vomiting) Qty: 60 0RF Referrals / Follow Up: Alice Cuellar DO [Primary Care Provider] - Within 1 Week Hugo Sheldon DO [Med Staff - Active Staff] - (Please continue to follow up with your outpatient certified coder, Dr. Sheldon) Disposition Disposition (needs filled in before D/C Order can be placed): Home, Self Care Charges/Coding Visit Charges OBSV E&M: 19143 Observation care discharge
--- NOTE | 2021-12-18 10:31 | PHA.DC.MR ---
Pharmacy Service has performed discharge medication reconciliation for this patient. The patient's discharge medication list was reviewed for discrepancies and discrepancies were resolved. Home Medications ferrous sulfate 325 mg (65 mg iron) tablet (iron) 325 mg PO DAILY supplement 03/20/18 magnesium oxide 400 mg (241.3 mg magnesium) tablet 400 mg PO TID supplement 03/12/20 potassium chloride 10 mEq tablet,extended release 10 meq PO BID supplement 03/12/20 tramadol 50 mg tablet 50 mg PO Q6H PRN pain #20 tabs 12/17/20 thiamine HCl (vitamin B1) 100 mg tablet (Vitamin B-1) 100 mg PO DAILY vitamin #30 tabs 12/20/20 multivitamin 1 tab PO DAILY supplement 12/27/20 meclizine 12.5 mg tablet 12.5 mg PO TID PRN dizziness #90 tabs 01/25/21 pantoprazole 40 mg tablet,delayed release 40 mg PO BID gerd 05/22/21 trazodone 100 mg tablet 100 mg PO QHS 07/18/21 furosemide 20 mg tablet (Lasix) 20 mg PO DAILY #30 tabs 11/07/21 lactulose 10 gram/15 mL oral solution 30 g (45 mL) PO DAILY Check with primary doctor #237 mL 11/07/21 midodrine 10 mg tablet 10 mg PO TID hypotension #30 tabs 11/07/21 promethazine 25 mg tablet 25 mg PO BID PRN nausea and vomiting #60 tabs 11/07/21 rifaximin 550 mg tablet (Xifaxan) 550 mg PO BID 11/14/21 spironolactone 50 mg tablet 50 mg PO BID 11/14/21
== END 2021-12-18 12:10 | disposition home or self-care (01) ==
LOC: ED 12-15 00:29 → MS3 12-15 05:47
PROVIDERS: Admitting Provider Family Medicine; Emergency Provider Emergency Medicine; PCP Family Medicine; Visit Provider Internal Medicine
DX: R10.84 Generalized abdominal pain (principal); D61.818 Other pancytopenia; K70.30 Alcoholic cirrhosis of liver without ascites; F10.20 Alcohol dependence, uncomplicated; I73.9 Peripheral vascular disease, unspecified; I10 Essential (primary) hypertension; K92.0 Hematemesis; G89.29 Other chronic pain; F17.210 Nicotine dependence, cigarettes, uncomplicated; Z79.899 Other long term (current) drug therapy; D50.9 Iron deficiency anemia, unspecified; K21.9 Gastro-esophageal reflux disease without esophagitis; R07.89 Other chest pain
CPT/HCPCS: 36415; 74177; 76705; 80053; 83690; 83735; 84100; 84484; 85014; 85018; 85025; 86850; 86900; 86901; 93005; 96374; 96375; 96376; 97802; 97803; 99218; 99284; 99406; J7030; Q9967; A4216; G0378; J2405

== ENCOUNTER → 2022-02-05 | Outpatient (CLI) | payer MEDICARE, MEDICAID, SELFPAY ==
[2022-02-05 12:30] LABS: Erythrocyte Sedimentation Rate 1 mm/hr (0-20)
[2022-02-05 12:35] LABS: Absolute Lymphocyte Count 1.09 X10^3/uL (0.83-4.51); Absolute Neutrophil Count 1.7 X10^3/uL (2.0-7.7); Basophil# 0.01 X10^3/uL; Basophil% 0.3 % (0-1); Eosinophil# 0.03 X10^3/uL; Eosinophils% 0.9 % (0-5); Hemoglobin 13.4 g/dL (13.0-16.5); Lymphocyte # 1.09 X10^3/ul (0.83-4.51); Lymphocyte % 32.8 % (19-41); Mean Corp Hgb Conc 34.4 g/dL (32-36); Mean Corpuscular Hgb 33.8 pg (27.0-32.0); Mean Corpuscular Volume 98.2 fL (80-94); Mean Platelet Vol. 10.1 fl (6.2-12.0); Monocyte# 0.53 X10^3/uL; NRBC Flagged by Analyzer 0 % (0-5); Neutrophil # 1.65 X10^3/uL (2.7-7.7); Neutrophil % 49.7 % (47-70); POSITIVE COUNT YES; Platelet Count 42 K/mm3 (150-450); RBC Distribution Width CV 15.2 % (11.6-14.6); RBC Distribution Width SD 54.7 fl (35.1-43.9); Red Blood Count 3.97 M/mm3 (4.6-6.2); White Blood Count 3.3 K/mm3 (4.4-11.0)
[2022-02-05 12:43] LABS: Differential Indicated SCAN CRITERIA MET; International Normalized Ratio 1.6; Prothrombin Time (Protime)PT. 18.8 SECONDS (11.7-14.9)
[2022-02-05 13:02] LABS: ALB/GLOB Ratio 0.9 RATIO (0.9-2.4); AST(SGOT) 39 U/L (15-37); Alanine Aminotransfer ALT/SGPT 33 U/L (16-61); Albumin, Serum 2.9 g/dL (3.2-5.0); Alkaline Phosphatase 91 U/L (45-117); Anion Gap 3 (5-15); BUN 6 mg/dL (7-18); BUN/Creat Ratio 10.9 RATIO (10-20); CRP < 2.90 mg/L (0.0-3.0); Chloride 109 mmol/L (98-107); Creatinine, Serum 0.55 mg/dL (0.70-1.30); EST Glomerular Filtration Rate 161 mL/min (>60); Est Glom Filt Rate - Afr Amer 194 mL/min (>60); Ferritin 67 ng/mL (26-388); Globulin 3.4 g/dL (2.2-4.2); Glucose 107 mg/dL (74-106); Iron 170 ug/dL (65-175); Iron Binding Capacity,Total 296 ug/dL (250-450); LDH 199 U/L (87-241); PERCENT IRON SATURATION 57.4 % (15.0-55.0); Potassium 4.1 mmol/L (3.5-5.1); Protein, Total 6.3 g/dL (6.4-8.2); Sodium Level 140 mmol/L (136-145)
[2022-02-05 13:04] LABS: Differential Comment SCANNED; Platelet Estimate MKD DEC (ADEQ)
[2022-02-06 09:00] LABS: AFP, Tumor Marker 4.2 ng/mL (0.0-8.4)
[2022-02-07 09:47] LABS: Pathologist Review Reviewed
== END | disposition home or self-care (01) ==
LOC: LAB 11:43
PROVIDERS: PCP Family Medicine; Referring Provider Nurse Practitioner Adult Health; Visit Provider Nurse Practitioner Adult Health
DX: K74.60 Unspecified cirrhosis of liver (principal); I10 Essential (primary) hypertension
CPT/HCPCS: 36415; 80053; 82105; 82140; 82728; 83540; 83550; 83615; 85025; 85610; 85652; 86140

== ENCOUNTER 2022-03-10 08:09 | Day surgery (SDC) | payer MEDICARE, MEDICAID, SELFPAY ==
[2022-03-10] MEDS: Lactated Ringers 1,000 ML 15 ML IV (08:25)
[2022-03-10 08:37] VITALS: BP 138/76; PULSE 96; RESP 17; TEMP 36.6; O2SAT 97; BMI 29.6
--- NOTE | 2022-03-10 08:39 | HP.PCM_ITS ---
History and Physical Date of Admission: 03/10/22 61 M who presents to the office today for one month f/u alcoholic cirrhosis. He forgot to get labs drawn at last visit. His main concern today is insomnia--has difficulty falling asleep and staying asleep. Takes trazodone 100 mg w/ only minimal relief. No better with melatonin. He denies napping during the day. 61-year-old male with alcoholic cirrhosis, hepatic encephalopathy, gastric and esophageal varices, varices throughout the abdomen on CT scan, chronic nausea, chronic abdominal pain, history of marijuana hyperemesis.? He is not interested in quitting alcohol or marijuana.? He has declined referral to a tertiary center for TIPS procedure.? He needs an updated EGD to reevaluate varices--this is scheduled for 03/10/22.? He has had cardiology work-up because of change in his ECG that was found on PAT for EGD.? He continues on furosemide and spironolactone for ascites.? He continues on lactulose and xifaxan for hepatic encephalopathy.?He has multiple BMs per day, no diarrhea or constipation. He continues on PPI therapy.? He established with this office in 10/2020 when he was hospitalized with upper GI bleed, Dr Sheldon did banding of esophageal varices then. In 11/2020 he was again hospitalized for the same reason, had banding again. Another EGD with esophageal banding in 12/2020. Hospitalization 12/15/2021 to 12/18/2021 for intractable nausea and vomiting, abdominal pain. Only tiny amt of blood in his emesis at that time. He denies vomiting since then. He has intermittent nausea. Intermittent epigastric pain. Intermittent heartburn. No melena or hematochezia. No bleeding. Abd intermittently swollen but not hard. No hx paracentesis other than for testing for SBP. Has bilat LE edema chronically. No pruritus. No jaundice.? He continues to use marijuana and drink beer. MELD-Na score in 05/2021 was 11. ROS Const Constitutional: Positive for fatigue, frequent falls and weight change ENT ENT: No difficulty swallowing Gastro GI: Positive for nausea/dyspepsia and vomiting; No abdominal pain, belching, bloating, change in bowel habits, change in stool character, coffee ground emesis, constipation, cramping, diarrhea, heartburn, difficulty swallowing, feeling full early, excessive flatus, incontinent of stools, Vomiting blood/hematemesis, Blood in stool, loose stools, Black,tarry stools, pain with swallowing or other Musc Musculoskeletal: Positive for back pain, Arthritis and restless legs; No joint pain Skin Skin: No yellowing of the eye or itchy eyes Neuro Neurology: Positive for frequent falls and restless legs Psych Psychiatric: No anxiety and No depression Endo Endocrine: Positive for fatigue and weight change Aller/Imm Allergy/Immunologic: No itchy eyes Seth/Lymp Hematologic/Lymphatic: Positive for easy bleeding and easy bruising Exam Const General: cooperative and comfortable Orientation: alert, awake and oriented x3 Eyes Sclera: sclerae normal Resp Effort & Inspection: normal respiratory effort GI Inspection: normal to inspection Palpation: soft, no masses and nontender Neuro Other: uses a walker Psych Mood: euthymic mood Quality Reporting Tobacco Screening ([facility] 138) Smoking Status: Current every day smoker Assessment and Plan Assessment and Plan (1) Cirrhosis: ?Status:?Acute ?Plan: 61-year-old male with alcoholic cirrhosis, hepatic encephalopathy, gastric and esophageal varices, varices throughout the abdomen on CT scan, chronic nausea, chronic abdominal pain, history of marijuana hyperemesis.? He is not interested in quitting alcohol or marijuana.? He has declined referral to a tertiary center for TIPS procedure.? He needs an updated EGD to reevaluate varices--this is scheduled for March with f/u 2 wks later in office. Get labs done today--will update MELD. I'll let Dr Cuellar know he is requesting a different treatment for his insomnia since he reports trazodone isn't effective I have examined the patient and the H&P has been reviewed. There are no clinical changes since date of exam.
[2022-03-10 09:35] VITALS: BP 125/68; BP 138/76; PULSE 98; RESP 18; TEMP 36.7; O2SAT 95
--- NOTE | 2022-03-10 09:37 | OP.CCLET_ITS ---
03/10/2022 Alice Cuellar [address] [facility] [place] [address] Re : Upper GI endoscopy procedure for Keyon Wilma Dear Dr. Cuellar This procedure was performed on Thursday, March 10, 2022. My impressions and recommendations are as follows: Impressions : - Grade II esophageal varices. Incompletely eradicated. Banded. - Type 2 gastroesophageal varices (GOV2, esophageal varices which extend along the fundus), without bleeding. - Portal hypertensive gastropathy. - No gross lesions in the first portion of the duodenum. - No specimens collected. Recommendations : - Discharge patient to home. - Resume previous diet. - Continue present medications. My findings are described in the full procedure note, which is enclosed. If I can be of further assistance, please feel free to contact me at . Sincerely, Hugo Sheldon, 03/10/2022 9:36:23 AM This report has been signed electronically.
--- NOTE | 2022-03-10 09:37 | OP.EGD_ITS ---
Patient Name: Keyon Dillon Procedure Date: 03/10/2022 9:13 AM Date of : 1960 Age: 61 Procedure: Upper GI endoscopy Indications: 2nd degree variceal eradication (following bleed) Providers: Hugo Sheldon DO Medicines: Monitored Anesthesia Care Patient Profile: This is a 61 year old male. Refer to note in patient chart for documentation of history and physical. Patient has symptoms of chronic dysphagia. Complications: No immediate complications. Procedure: Pre-Anesthesia Assessment: - Prior to the procedure, a History and Physical was performed, and patient medications and allergies were reviewed. The risks and benefits of the procedure and the sedation options and risks were discussed with the patient. All questions were answered and informed consent was obtained. Patient identification and proposed procedure were verified by the physician in the pre-procedure area. Mental Status Examination: alert and oriented. Airway Examination: normal oropharyngeal airway and neck mobility. Respiratory Examination: clear to auscultation. CV Examination: normal. Prophylactic Antibiotics: The patient does not require prophylactic antibiotics. Prior Anticoagulants: The patient has taken no previous anticoagulant or antiplatelet agents. ASA Grade Assessment: III - A patient with severe systemic disease. After reviewing the risks and benefits, the patient was deemed in satisfactory condition to undergo the procedure. The anesthesia plan was to use monitored anesthesia care (MAC). Immediately prior to administration of medications, the patient was re-assessed for adequacy to receive sedatives. The heart rate, respiratory rate, oxygen saturations, blood pressure, adequacy of pulmonary ventilation, and response to care were monitored throughout the procedure. The physical status of the patient was re-assessed after the procedure. After obtaining informed consent, the endoscope was passed under direct vision. Throughout the procedure, the patient's blood pressure, pulse, and oxygen saturations were monitored continuously. The gastroscope was introduced through the mouth, and advanced to the second part of duodenum. The upper GI endoscopy was accomplished without difficulty. The patient tolerated the procedure well. Scope In: 9:22:18 AM Scope Out: 9:29:38 AM Total Procedure Duration Time 0 hours 7 minutes 20 seconds Findings: Grade II varices were found in the middle third of the esophagus and in the lower third of the esophagus. They were 5 mm in largest diameter. Two bands were successfully placed with incomplete eradication of varices. There was no bleeding during the procedure. Type 2 gastroesophageal varices (GOV2, esophageal varices which extend along the fundus) with no bleeding were found in the cardia. There were no stigmata of recent bleeding. They were 5 mm in largest diameter. Severe portal hypertensive gastropathy was found in the entire examined stomach. No gross lesions were noted in the first portion of the duodenum. Impression: - Grade II esophageal varices. Incompletely eradicated. Banded. - Type 2 gastroesophageal varices (GOV2, esophageal varices which extend along the fundus), without bleeding. - Portal hypertensive gastropathy. - No gross lesions in the first portion of the duodenum. - No specimens collected. Recommendation: - Discharge patient to home. - Resume previous diet. - Continue present medications. Procedure Code(s): --- Professional --- 41929, Esophagogastroduodenoscopy, flexible, transoral; with band ligation of esophageal/gastric varices CPT copyright 2017 [employer]. All rights reserved. The codes documented in this report are preliminary and upon edge molder review may be revised to meet current compliance requirements. Hugo Sheldon DO 03/10/2022 9:36:23 AM This report has been signed electronically. Number of Addenda: 0 Note Initiated On: 03/10/2022 9:13 AM
[2022-03-10 09:40] VITALS: BP 127/66; BP 138/76; PULSE 105; RESP 18; O2SAT 94
[2022-03-10 09:45] VITALS: BP 123/59; BP 138/76; PULSE 106; RESP 18; O2SAT 94
[2022-03-10 09:48] VITALS: BP 136/66; BP 138/76; PULSE 104; RESP 18; TEMP 37.2; O2SAT 96
[2022-03-10 10:00] VITALS: BP 138/76
== END 2022-03-10 10:12 | disposition home or self-care (01) ==
LOC: EN 08:11 → AC 08:14
PROVIDERS: PCP Family Medicine; Referring Provider Family Medicine; Visit Provider Internal Medicine Gastroenterology
PROC: 0DJ08ZZ Inspection of Upper Intestinal Tract, Via Natural or Artificial Opening Endoscopic (ICD-10-PCS; CPT 43235; principal; 2022-03-10 09:10)
DX: K70.30 Alcoholic cirrhosis of liver without ascites (principal); K76.82 Hepatic encephalopathy; I85.00 Esophageal varices without bleeding; K76.6 Portal hypertension; F10.20 Alcohol dependence, uncomplicated; F17.200 Nicotine dependence, unspecified, uncomplicated; R11.0 Nausea; Z79.899 Other long term (current) drug therapy; I10 Essential (primary) hypertension; R94.31 Abnormal electrocardiogram [ECG] [EKG]; G89.29 Other chronic pain; G47.00 Insomnia, unspecified
CPT/HCPCS: 43244; J7120; J2405

== ENCOUNTER 2022-03-16 01:47 | Inpatient (IN) | payer MEDICARE, MEDICAID, SELFPAY ==
[2022-03-16] VITALS (13 sets, daily range): BP systolic 108–177; BP diastolic 56–96; PULSE 81–107; RESP 15–20; TEMP 36–37.1; O2SAT 93–100; BMI 30.9; BMI 30.1
--- NOTE | 2022-03-16 02:06 | EX.ED.DYSGE1 ---
HPI History of Present Illness Chief Complaint: GI Bleed Narrative Narrative: Patient is a 61-year-old male with past medical history of alcohol abuse with esophageal and gastroesophageal varices as well as cirrhosis and chronic abdominal pain. He had an EGD on March 10 with banding of esophageal varices. He states that he continues to drink and his last drink was a few hours ago. He reports that around 1230 he developed bouts of nausea and vomiting and that it was bright red blood in nature. He denies any history of bleeding disorder or blood thinner use. He states there is been no loose stool or diarrhea and he denies any dark or bloody stool. Secondary to the persistent abdominal pain now accompanied with bouts of bleeding he called EMS and was brought in for evaluation. EMS does report that they noted bright red blood in the toilet upon arrival [facility] Medical History Alcohol use Alcoholic cirrhosis Alcoholism Alcoholism Aortic aneurysm without rupture Arthritis Bruising Cannabis hyperemesis syndrome concurrent with and due to cannabis abuse Cardiology follow-up encounter Chronic abdominal pain Chronic anemia Chronic pain Diastolic dysfunction Esophageal varices in alcoholic cirrhosis Gastric reflux Hematemesis History of echocardiogram History of esophageal varices History of GI bleed History of stress test Hypotension Low iron Marijuana use Pancytopenia Peripheral arterial disease Restless legs Smoker Thrombocytopenia Tobacco use Varices of esophagus determined by endoscopy Walker as ambulation aid Wears glasses Home Medications ferrous sulfate 325 mg (65 mg iron) tablet (iron) 325 mg PO DAILY supplement 03/20/18 [History Last Taken 07/18/21] magnesium oxide 400 mg (241.3 mg magnesium) tablet 400 mg PO TID supplement 03/12/20 [History Last Taken 03/11/20] potassium chloride 10 mEq tablet,extended release 10 meq PO BID supplement 03/12/20 [History Last Taken 03/11/20] tramadol 50 mg tablet 50 mg PO Q6H PRN pain #20 tabs 12/17/20 [Rx Last Taken Unknown] multivitamin 1 tab PO DAILY supplement 12/27/20 [History Last Taken Unknown] meclizine 12.5 mg tablet 12.5 mg PO TID PRN dizziness #90 tabs 01/25/21 [Rx Last Taken Unknown] pantoprazole 40 mg tablet,delayed release 40 mg PO BID gerd 05/22/21 [History Last Taken Unknown] trazodone 100 mg tablet 100 mg PO QHS 07/18/21 [History Last Taken Unknown] promethazine 25 mg tablet 25 mg PO BID PRN nausea and vomiting #60 tabs 11/07/21 [Rx Last Taken Unknown] furosemide 20 mg tablet (Lasix) 20 mg PO DAILY #90 tabs 01/08/22 [Rx Last Taken Unknown] lactulose 10 gram/15 mL oral solution 30 g (45 mL) PO DAILY #946 mL 01/08/22 [Rx Last Taken Unknown] rifaximin 550 mg tablet (Xifaxan) 550 mg PO BID #180 tabs 01/08/22 [Rx Last Taken Unknown] spironolactone 50 mg tablet 50 mg PO BID #180 tabs 01/08/22 [Rx Last Taken Unknown] midodrine 10 mg tablet 10 mg PO TID hypotension #30 tabs 02/18/22 [Rx Last Taken Unknown] thiamine HCl (vitamin B1) 100 mg tablet (Vitamin B-1) 100 mg PO DAILY vitamin #30 tabs 02/18/22 [Rx Last Taken Unknown] vitamin B complex 1 cap PO DAILY 03/07/22 [History Last Taken Unknown] Allergy/AdvReac Type Severity Reaction Status Date / Time No Known Allergies Allergy Verified 03/10/22 08:37 Family History Mother Cancer Father Lupus Surgical History History of abdominal aortic aneurysm repair (~2013) History of esophagogastroduodenoscopy (EGD) History of removal of cyst Social History household members: none Smoking Status: Light Smoker (<10/day) alcohol intake: current alcohol intake frequency: a few times a week substance use type: marijuana caffeine: No ROS ROS ED Constitutional Constitutional ED: Denies chills or fever(s) ENT ENT ED: Reports sore throat Cardiovascular Cardiovascular: Denies chest pain Respiratory/Chest Respiratory/Chest: Denies cough or dyspnea Gastrointestinal Gastrointestinal: Reports abdominal pain, nausea, vomiting and other Details: Positive hematemesis ; Denies diarrhea or melena Genitourinary Genitourinary ED: Denies dysuria or hematuria Musculoskeletal Musculoskeletal: Denies myalgias Integumentary Denies rash Neurologic Neurologic: Denies headache(s) Hematologic/Lymphatic Hematologic/Lymphatic: Reports easy bleeding and easy bruising EXAM Physical Exam Const Vital Signs: 03/16/22 01:48 03/16/22 02:27 03/16/22 03:59 Temperature 96.8 F L Temperature Source Temporal Pulse Rate 107 H 101 H 101 H Respiratory Rate 15 15 15 Blood Pressure 177/83 H 176/69 H 155/67 H Blood Pressure Mean 114 104 96 Pulse Ox 98 95 94 Oxygen Delivery Method Room Air Nasal Cannula Oxygen Flow Rate (L/min) 2 03/16/22 04:20 Temperature Temperature Source Pulse Rate 104 H Respiratory Rate 20 H Blood Pressure 164/71 H Blood Pressure Mean 102 Pulse Ox 100 Oxygen Delivery Method Room Air Oxygen Flow Rate (L/min) Positive well nourished, well developed and obese General Appearance ED: well developed Nutritional Appearance: obese HEENT Reports dry mucous membranes HEENT Narrative: Mucous membranes are dry and tacky. There is dried blood noted on the patient's upper and lower lip. There is no active bleeding or dried blood noted in the posterior pharynx. No airway edema or compromise Mouth ED: Yes dry mucous membranes Mouth: dry mucous membranes Eyes PERRL and EOMs intact bilaterally Eyes Narrative: Slight scleral icterus noted Neck supple Neck Narrative: No crepitance palpated in the anterior neck Resp normal respiratory effort and clear to auscultation bilaterally Resp Narrative: No nasal flaring retractions tachypnea or accessory muscle use Cardio regular rhythm Rate: tachycardic and other Other Details: Slightly tachycardic rate with regular rhythm. Radial pulses are plus 2 out of 4 bilaterally are equal and symmetric. GI non-distended GI Narrative: Abdomen is soft and nondistended with normoactive bowel sounds. There is diffuse pain with palpation without voluntary guarding or rigidity. No fluid wave noted. No pulsatile mass. Auscultation: normoactive bowel sounds Palpation: soft Narrative: Stool is brown in color but Hemoccult positive Extremity Extremity Narrative: Patient has chronic stasis changes to bilateral lower legs and trace pitting edema present Neuro oriented x3 and CN's II-XII intact bilaterally Sensorium / Orientation: alert Psych Psych Narrative: Patient has a flat affect Skin Skin Narrative: Chronic stasis changes of the bilateral legs with mild increase in skin turgor No obvious jaundice noted MDM MDM MDM Narrative Medical decision making narrative: #To the ER hypertensive and slightly tachycardic but otherwise afebrile. He had dried blood on his upper and lower lip and EMS reported bright red blood in the toilet concerning for spontaneous GI bleed from his esophageal and or gastroesophageal varices. As he recently had a EGD elected to perform a acute abdominal series x-ray to check for possible perforation. The patient cannot stand for the x-ray so a [address] scan without contrast were ordered. The CT scan showed multiple chronic changes without acute perforation or bleed. I did document changes around the gallbladder which were nonspecific and patient had an ultrasound at his previous visit in November which did not show changes concerning for acute cholecystitis I do not feel there is need to further evaluate this especially as patient is afebrile with no white count. The patient initially arrived satting in the high 90s on room air but his pulse ox did drop into the low 80s and CAT scan questions aspiration therefore in the setting of vomiting and now new onset hypoxia he will be given 3 g Unasyn. The case was discussed with Dr. Sheldon/gastroenterology. He recommends patient continue the octreotide drip as well as a Protonix bolus and that his blood pressure try to be reduced to 120 systolically. The patient's blood pressure has down trended since arrival with Dilaudid but now labetalol will be added to help reach this kenia. At this time with the patient's known esophageal and gastroesophageal varices the active bleeding present on exam and the concern for aspiration he will be kept in the hospital for further care Lab Data Attestation: I reviewed the patient's lab results. Labs: Laboratory Results - last 24 hr 03/16/22 03/16/22 03/16/22 01:53 01:53 01:53 WBC 5.8 RBC 3.91 L Hgb 13.2 Hct 37.8 L MCV 96.7 H MCH 33.8 H MCHC 34.9 RDW Std Deviation 55.7 H RDW Coeff of Delilah 15.7 H Plt Count 53 L MPV 9.9 Immature Gran % (Auto) 0.200 Neut % (Auto) 53.7 Lymph % (Auto) 31.7 [place] % (Auto) 13.4 H Eos % (Auto) 0.7 Baso % (Auto) 0.3 Absolute Neuts (auto) 3.1 Absolute Lymphs (auto) 1.84 Nucleated RBC % 0 PT 18.0 H INR 1.5 APTT 35.6 Sodium 142 Potassium 3.6 Chloride 107 Carbon Dioxide 25.0 Anion Gap 10 BUN 9 Creatinine 0.63 L Estim Creat Clear Calc 131.14 Est GFR (MDRD) Af Amer 166 Est GFR (MDRD) Non-Af 138 BUN/Creatinine Ratio 14.3 Glucose 136 H Calcium 8.5 Total Bilirubin 1.10 H Direct Bilirubin 0.52 H AST 46 H ALT 31 Alkaline Phosphatase 99 Total Protein 6.4 Albumin 2.8 L Globulin 3.6 Lipase 387 Ethyl Alcohol 03/16/22 02:00 WBC RBC Hgb Hct MCV MCH MCHC RDW Std Deviation RDW Coeff of Delilah Plt Count MPV Immature Gran % (Auto) Neut % (Auto) Lymph % (Auto) [place] % (Auto) Eos % (Auto) Baso % (Auto) Absolute Neuts (auto) Absolute Lymphs (auto) Nucleated RBC % PT INR APTT Sodium Potassium Chloride Carbon Dioxide Anion Gap BUN Creatinine Estim Creat Clear Calc Est GFR (MDRD) Af Amer Est GFR (MDRD) Non-Af BUN/Creatinine Ratio Glucose Calcium Total Bilirubin Direct Bilirubin AST ALT Alkaline Phosphatase Total Protein Albumin Globulin Lipase Ethyl Alcohol 25.0 Radiography Diagnostic Testing: Clinical Impression(s) from Imaging Studies Abdomen/Pelvis CT 03/16/22 02:38 IMPRESSION: 1. Cirrhosis, portosystemic collateral vasculature and splenomegaly, suggestive of portal hypertension. 2. Mild wall thickening in the proximal colon, nonspecific in the setting of cirrhosis, may represent hepatic colopathy versus colitis. 3. Mild urinary bladder wall thickening, may be due to decompression or cystitis. 4. Cholelithiasis with mild pericholecystic inflammatory changes. Nonspecific in the setting of cirrhosis, cannot exclude cholecystitis or hepatitis. 5. Clustered centrilobular nodularity in the lower lobes, may represent aspiration pneumonitis or infectious bronchiolitis. Electronically Signed: Jaspal Rodriguez MD at 3:38 EST , Chest x-ray as interpreted by the emergency medicine physician reveals bibasilar opacities slightly greater in the right concerning for aspiration without pneumothorax or pleural effusion Discharge Plan Triage Chief Complaint: GI Bleed ED Provider: Nahum Mckee Dx/Rx/DC Orders Clinical Impression: Bleeding esophageal varices, Benign essential hypertension, Cirrhosis, Thrombocytopenia, Aspiration pneumonia Prescriptions: No Action tramadol 50 mg tablet 50 mg PO Q6H PRN (Reason: pain) Qty: 20 0RF furosemide [Lasix] 20 mg tablet 20 mg PO DAILY Qty: 90 3RF spironolactone 50 mg tablet 50 mg PO BID Qty: 180 3RF lactulose 10 gram/15 mL solution 30 g PO DAILY Qty: 946 5RF Xifaxan 550 mg tablet 550 mg PO BID Qty: 180 3RF ferrous sulfate [iron] 325 MG tablet 325 mg PO DAILY Label Comments: pt states will stop 12/30/20 per Friend instruction potassium chloride 10 MEQ tablet extended release 10 meq PO BID magnesium oxide 400 MG tablet 400 mg PO TID Rx Instructions: takes with meals multivitamin Tablet 1 tab PO DAILY trazodone 100 mg Tablet 100 mg PO QHS pantoprazole 40 mg tablet,delayed release (DR/EC) 40 mg PO BID Label Comments: TAKE 1 TABLET BY MOUTH TWICE DAILY vitamin B complex Capsule 1 cap PO DAILY meclizine 12.5 mg tablet 12.5 mg PO TID PRN (Reason: dizziness) Qty: 90 2RF promethazine 25 mg tablet 25 mg PO BID PRN (Reason: nausea and vomiting) Qty: 60 0RF midodrine 10 mg tablet 10 mg PO TID Qty: 30 5RF Rx Instructions: do not give last dose of day after 6PM or within 4 hrs of bedtime thiamine HCl (vitamin B1) [Vitamin B-1] 100 mg tablet 100 mg PO DAILY Qty: 30 5RF Primary Care Provider: Alice Cuellar Referrals: lAice Cuellar DO [Primary Care Provider] - Disposition Disposition: Acute Care Hospital [facility]
[2022-03-16] MEDS: 0.9% Normal Saline 1,000 ML 999 ML IV (02:07)
[2022-03-16] MEDS: Ondansetron 4 MG/2 ML Vial IV ×4 (02:07→17:49)
[2022-03-16] MEDS: HYDROmorphone 1 MG/ML Syringe IV (02:07)
[2022-03-16 02:14] LABS: Absolute Lymphocyte Count 1.84 X10^3/uL (0.83-4.51); Absolute Neutrophil Count 3.1 X10^3/uL (2.0-7.7); Basophil# 0.02 X10^3/uL; Basophil% 0.3 % (0-1); Eosinophil# 0.04 X10^3/uL; Eosinophils% 0.7 % (0-5); Hematocrit 37.8 % (40-54); Hemoglobin 13.2 g/dL (13.0-16.5); Lymphocyte # 1.84 X10^3/ul (0.83-4.51); Lymphocyte % 31.7 % (19-41); Mean Corp Hgb Conc 34.9 g/dL (32-36); Mean Corpuscular Hgb 33.8 pg (27.0-32.0); Mean Corpuscular Volume 96.7 fL (80-94); Mean Platelet Vol. 9.9 fl (6.2-12.0); Monocyte# 0.78 X10^3/uL; Monocyte% 13.4 % (0-10); NRBC Flagged by Analyzer 0 % (0-5); Neutrophil # 3.12 X10^3/uL (2.7-7.7); Neutrophil % 53.7 % (47-70); POSITIVE COUNT YES; Platelet Count 53 K/mm3 (150-450); RBC Distribution Width CV 15.7 % (11.6-14.6); RBC Distribution Width SD 55.7 fl (35.1-43.9); Red Blood Count 3.91 M/mm3 (4.6-6.2); White Blood Count 5.8 K/mm3 (4.4-11.0)
[2022-03-16 02:20] LABS: International Normalized Ratio 1.5
[2022-03-16 02:21] LABS: Partial Thromboplast Time 35.6 Seconds (24.1-36.2)
[2022-03-16 02:32] LABS: AST(SGOT) 46 U/L (15-37); Alanine Aminotransfer ALT/SGPT 31 U/L (16-61); Albumin, Serum 2.8 g/dL (3.2-5.0); Alkaline Phosphatase 99 U/L (45-117); Anion Gap 10 (5-15); BUN 9 mg/dL (7-18); BUN/Creat Ratio 14.3 RATIO (10-20); Bilirubin, Direct 0.52 mg/dL (0.00-0.30); Calcium,Total 8.5 mg/dL (8.5-10.1); Chloride 107 mmol/L (98-107); Creatinine, Serum 0.63 mg/dL (0.70-1.30); EST Glomerular Filtration Rate 138 mL/min (>60); Est Glom Filt Rate - Afr Amer 166 mL/min (>60); Estimated Creatinine Clearance 131.14 ml/min; Globulin 3.6 g/dL (2.2-4.2); Glucose 136 mg/dL (74-106); Lipase 387 U/L (73-393); Potassium 3.6 mmol/L (3.5-5.1); Protein, Total 6.4 g/dL (6.4-8.2); Sodium Level 142 mmol/L (136-145)
--- NOTE | 2022-03-16 02:38 | CT_ITS ---
EXAM: CT Abdomen And Pelvis W/O Contrast Injection HISTORY: abd pain TECHNIQUE: CT Abdomen And Pelvis W/O Contrast Injection A radiation dose optimization technique was used for this scan. COMPARISON: CT abdomen and pelvis 12/15/2021 LIMITATIONS: None. FINDINGS: LOWER CHEST: Clustered centrilobular nodularity in the lower lobes. Coronary artery calcifications. LIVER: Diffuse hepatic nodularity, consistent with cirrhosis, incompletely evaluated. Portosystemic collateral vasculature including recanalized paraumbilical vein GALLBLADDER/BILE DUCTS: Small layering calcified gallstones. Mild pericholecystic fat stranding. PANCREAS: Normal. SPLEEN: Enlarged measuring 17 cm. ADRENAL GLANDS: Normal. KIDNEYS/URETERS/BLADDER: Mild urinary bladder wall thickening. Urinary bladder is decompressed, limiting evaluation. No hydroureteronephrosis radiopaque nephrolithiasis.. RETROPERITONEUM/AORTA: Moderate atherosclerotic calcifications.. BOWEL/MESENTERY: Mild to moderate wall thickening in the ascending colon and proximal transverse colon. No bowel dilatation. Mild increased stool in the rectosigmoid colon.. APPENDIX: Identified and normal. PERITONEUM: Normal. REPRODUCTIVE ORGANS: Normal. BONES/SOFT TISSUES: No acute abnormality. OTHER: None. CT/Abdomen/Pelvis without Cont IMPRESSION: 1. Cirrhosis, portosystemic collateral vasculature and splenomegaly, suggestive of portal hypertension. 2. Mild wall thickening in the proximal colon, nonspecific in the setting of cirrhosis, may represent hepatic colopathy versus colitis. 3. Mild urinary bladder wall thickening, may be due to decompression or cystitis. 4. Cholelithiasis with mild pericholecystic inflammatory changes. Nonspecific in the setting of cirrhosis, cannot exclude cholecystitis or hepatitis. 5. Clustered centrilobular nodularity in the lower lobes, may represent aspiration pneumonitis or infectious bronchiolitis. Electronically Signed: Jaspal Rodriguez MD at 3:38 EST ,
--- NOTE | 2022-03-16 02:51 | RAD_ITS ---
EXAM: XR CHEST, 1 VIEW CLINICAL INDICATION: dyspnea TECHNIQUE: Frontal view of the chest. This report was created using [employer] report generation technology. COMPARISON: April 15, 2019 FINDINGS: LUNGS AND PLEURAL SPACES: Atelectasis versus infiltrate at the medial aspect of the right lower lung. No pneumothorax. No effusion. No other parenchymal disease. HEART: Unremarkable. Cardiac silhouette not enlarged. MEDIASTINUM: Central airways and mediastinal contour are unremarkable. BONES/JOINTS: Unremarkable. SOFT TISSUES: Unremarkable. RAD/Chest 1 View (Portable) IMPRESSION: Atelectasis versus infiltrate at the medial aspect of the right lower lung. Electronically Signed: Nahum Siddiqi MD at 4:23 EST ,
[2022-03-16] MEDS: Octreotide 0.1 MG/ML ML 0.05 MG IV (03:28)
--- NOTE | 2022-03-16 04:08 | HP.PCM.HOS_ITS ---
[facility] - General General Date of Admission: 03/16/22 Date of Service: 03/16/22 Chief Complaint: GI bleed HPI Narrative JB ALARCON, is a 61 M with a PMh as outlined who presents via the ED on 03/16/2022 with a complaint of vomiting blood. He has a history of alcoholic liver cirrhosis with esophageal and gastroesophageal varices. He recently had an EGD on 03/10/2022 with banding of esophageal varices. He has continued drinking and his last drink was a few hours prior to admission. He started having nausea and vomiting this afternoon and said his vomiting was bright red blood. He denied any diarrhea or bloody stool and had associated abdominal pain. Review of systems is otherwise negative. His vomiting persisted so he came in to the ED. Vitals were BP of 155/67, NE of 101 and RR of 15. He was saturating at 94% on 2L of oxygen. He was noted to desaturate to 85% on room air in the ED. CBC showed Hbof 13.2, wbc of 5.8 and platelets of 53; he is chronically thrombocytopenic. INR is 1.5. Chemistry showed Cr of 0.63, and total bilirubin of 1.1. Serum alcohol level was 25 and INR was 1.5. CT abdomen and pelvis showed cirrhosis and portosystemic collateral vasculature and splenomegaly, suggestive of portal hypertension, and cholelithiasis with mild pericholecystic inflammatory changes as well as mild wall thickening in the proximal colon. He also had clustered centrilobular nodularity in the lower lobes which may represent aspiration pneumonitis or infectious bronchiolitis. He has been admitted to be managed for hematemesis and upper GI bleed likely due to bleeding from esophageal varices in the setting of alcoholic liver cirrhosis. He was started on octreotide drip in the ED. [facility] Medical History Alcohol use Alcoholic cirrhosis Alcoholism Alcoholism Aortic aneurysm without rupture Arthritis Bruising Cannabis hyperemesis syndrome concurrent with and due to cannabis abuse Cardiology follow-up encounter Chronic abdominal pain Chronic anemia Chronic pain Diastolic dysfunction Esophageal varices in alcoholic cirrhosis Gastric reflux Hematemesis History of echocardiogram History of esophageal varices History of GI bleed History of stress test Hypotension Low iron Marijuana use Pancytopenia Peripheral arterial disease Restless legs Smoker Thrombocytopenia Tobacco use Varices of esophagus determined by endoscopy Walker as ambulation aid Wears glasses Home Medications ferrous sulfate 325 mg (65 mg iron) tablet (iron) 325 mg PO DAILY supplement 03/20/18 [History Last Taken 07/18/21] magnesium oxide 400 mg (241.3 mg magnesium) tablet 400 mg PO TID supplement 03/12/20 [History Last Taken 03/11/20] potassium chloride 10 mEq tablet,extended release 10 meq PO BID supplement 03/12/20 [History Last Taken 03/11/20] tramadol 50 mg tablet 50 mg PO Q6H PRN pain #20 tabs 12/17/20 [Rx Last Taken Unknown] multivitamin 1 tab PO DAILY supplement 12/27/20 [History Last Taken Unknown] meclizine 12.5 mg tablet 12.5 mg PO TID PRN dizziness #90 tabs 01/25/21 [Rx Last Taken Unknown] pantoprazole 40 mg tablet,delayed release 40 mg PO BID gerd 05/22/21 [History Last Taken Unknown] trazodone 100 mg tablet 100 mg PO QHS ANTIDEPRESSANT 07/18/21 [History Last Taken Unknown] promethazine 25 mg tablet 25 mg PO BID PRN nausea and vomiting #60 tabs 11/07/21 [Rx Last Taken Unknown] midodrine 10 mg tablet 10 mg PO TID hypotension #30 tabs 02/18/22 [Rx Last Taken Unknown] thiamine HCl (vitamin B1) 100 mg tablet (Vitamin B-1) 100 mg PO DAILY vitamin #30 tabs 02/18/22 [Rx Last Taken Unknown] vitamin B complex 1 cap PO DAILY 03/07/22 [History Last Taken Unknown] furosemide 20 mg tablet (Lasix) 20 mg PO DAILY WATER PILL 03/16/22 [History Last Taken Unknown] lactulose 10 gram/15 mL oral solution 30 g PO DAILY SEE DOCTOR 03/16/22 [History Last Taken Unknown] rifaximin 550 mg tablet (Xifaxan) 550 mg PO BID HEPATIC ENCEPHALOPATHY 03/16/22 [History Last Taken Unknown] spironolactone 50 mg tablet 50 mg PO BID HYPERTENSION 03/16/22 [History Last Taken Unknown] Allergy/AdvReac Type Severity Reaction Status Date / Time No Known Allergies Allergy Verified 03/10/22 08:37 Family History (Reviewed 02/05/22 @ 11:24 by Yashira Aguilar BROOMMAKING SUPERVISOR, BROOMMAKING SUPERVISOR-C) Mother Cancer Father Lupus Surgical History History of abdominal aortic aneurysm repair (~2013) History of esophagogastroduodenoscopy (EGD) History of removal of cyst Social History household members: none Smoking Status: Light Smoker (<10/day) alcohol intake: current alcohol intake frequency: a few times a week substance use type: marijuana caffeine: No ROS Constitutional Constitutional: Reports fatigue, malaise and weakness; Denies anorexia, chills or fever(s) Eyes Eyes: Denies change in vision ENT HEENT: Denies dysphagia, headache(s), nasal congestion, sinus pressure or sore throat Cardiovascular Cardiovascular: Denies chest pain, dyspnea on exertion, edema, lightheadedness, orthopnea, palpitations, paroxysmal nocturnal dyspnea, rapid heart rate or syncope Respiratory/Chest Respiratory/Chest: Denies cough, dyspnea, shortness of breath at rest, shortness of breath with exertion or wheezing Gastrointestinal Gastrointestinal: Reports abdominal pain, coffee ground emesis, hematemesis, nausea and vomiting; Denies constipation, diarrhea, dyspepsia, hematochezia, loose stools or melena Genitourinary Genitourinary: Denies burning urination, dysuria or hematuria Musculoskeletal Musculoskeletal: Denies arthralgias, joint pain, joint stiffness or myalgias Neurologic Neurologic: Denies confusion, dizziness, focal weakness, headache(s) or numbness Psychiatric Psychiatric: Denies anxiety Endocrine Endocrinology: Denies change in body appearance Hematologic/Lymphatic Hematologic/Lymphatic: Denies anemia Vital Signs Vital Signs Vital Signs: 03/16/22 01:48 03/16/22 02:27 03/16/22 03:59 Temperature 96.8 F L Temperature Source Temporal Pulse Rate 107 H 101 H 101 H Respiratory Rate 15 15 15 Blood Pressure 177/83 H 176/69 H 155/67 H Blood Pressure Mean 114 104 96 Pulse Ox 98 95 94 Oxygen Delivery Method Room Air Nasal Cannula Oxygen Flow Rate (L/min) 2 Weight Weight: 221 lb 12.56 oz Body Mass Index (BMI) 30.9 Physical Exam Const alert, oriented x3 and no apparent distress General Appearance: cooperative HEENT normocephalic, head/scalp atraumatic, hearing grossly normal bilaterally and moist oral mucous membranes Mouth: oral and palatal mucosa normal Eyes PERRL, EOMs intact bilaterally and conjunctivae normal Neck no lymphadenopathy, supple and no JVD Resp normal respiratory effort, no retractions, no use of accessory muscles and clear to auscultation bilaterally Cardio regular rhythm, S1 normal heart sound, S2 normal heart sound and no murmurs Cardio Narrative: tachycardia GI normal to inspection, nondistended, normoactive bowel sounds, soft to palpation, non-tender and non-distended Extremity normal to inspection, full ROM and no clubbing, cyanosis or edema Neuro oriented x3, CN's II-XII intact bilaterally, moves all extremities and no focal motor deficits Sensorium / Orientation: awake and alert Motor Exam: strength 5/5 throughout Psych affect normal Results Lab / Micro Data Result Diagrams: 03/16/22 07:17 03/16/22 07:17 Labs: Laboratory Results - last 24 hr 03/16/22 01:53: WBC 5.8, RBC 3.91 L, Hgb 13.2, Hct 37.8 L, MCV 96.7 H, MCH 33.8 H, MCHC 34.9, RDW Std Deviation 55.7 H, RDW Coeff of Delilah 15.7 H, Plt Count 53 L, MPV 9.9, Immature Gran % (Auto) 0.200, Neut % (Auto) 53.7, Lymph % (Auto) 31.7, [place] % (Auto) 13.4 H, Eos % (Auto) 0.7, Baso % (Auto) 0.3, Absolute Neuts (auto) 3.1, Absolute Lymphs (auto) 1.84, Nucleated RBC % 0 03/16/22 01:53: PT 18.0 H, INR 1.5, APTT 35.6 03/16/22 01:53: Sodium 142, Potassium 3.6, Chloride 107, Carbon Dioxide 25.0, Anion Gap 10, BUN 9, Creatinine 0.63 L, Estim Creat Clear Calc 131.14, Est GFR (MDRD) Af Amer 166, Est GFR (MDRD) Non-Af 138, BUN/Creatinine Ratio 14.3, Glucose 136 H, Calcium 8.5, Total Bilirubin 1.10 H, Direct Bilirubin 0.52 H, AST 46 H, ALT 31, Alkaline Phosphatase 99, Total Protein 6.4, Albumin 2.8 L, Glob ulin 3.6, Lipase 387 03/16/22 02:00: Ethyl Alcohol 25.0 Micro: Microbiology 03/16/22 02:24 Stool Stool Occult Blood (ALEXEI) - Final Occult Blood Positive Radiology Impression Abdomen/Pelvis CT 03/16/22 02:38 IMPRESSION: 1. Cirrhosis, portosystemic collateral vasculature and splenomegaly, suggestive of portal hypertension. 2. Mild wall thickening in the proximal colon, nonspecific in the setting of cirrhosis, may represent hepatic colopathy versus colitis. 3. Mild urinary bladder wall thickening, may be due to decompression or cystitis. 4. Cholelithiasis with mild pericholecystic inflammatory changes. Nonspecific in the setting of cirrhosis, cannot exclude cholecystitis or hepatitis. 5. Clustered centrilobular nodularity in the lower lobes, may represent aspiration pneumonitis or infectious bronchiolitis. Electronically Signed: Jaspal Rodriguez MD at 3:38 EST , Assessment & Plan Assessment/Plan (1) Hematemesis: (2) Esophageal varices: PLAN: Plan #Upper GI bleed, likely due to bleeding esophageal varices in the setting of alcoholic liver cirrhosis * He just had EGD with banding of esophageal varices on 03/10/2019 by gastroenterology. * Patient continues to drink and his last drink was this afternoon. He subsequently started having vomiting with emesis being bright red blood. * Admit to PCU * Keep n.p.o. for now. * Per ED doctor, military technology manager did not want any more fluids and once patient's blood pressures come down to less than 120 systolic. Patient therefore given IV labetalol in the ED. * Type and cross for blood. Hemoglobin is 13.2. * Trend hemoglobin. On octreotide drip. Also on PPI drip. * Consult military technology manager. * #Alcoholic liver cirrhosis: * On lactulose. Also on furosemide. Hold these as patient is currently NPO. * also on rifaximin, spironolactone * #Alcohol use disorder * last drink was this afternoon * not in active withdrawal * serum alcohol level is 25 * place on CIMN protocol as a precaution * #Aspiration pneumonitis * Patient noted to have desaturated down to 85% in the ED. Concern is he may have aspirated with vomiting. CT of the abdomen and pelvis did show some evidence of aspiration pneumonitis. * Was started on IV Unasyn in the ED. We will continue. * * #Thrombocytopenia: This is chronic. Likely due to alcoholic liver disease. Will monitor. DVT prophylaxis: SCDs. CODE STATUS: full code * Patient counseled extensively about different types of CODE STATUS including full code, DNR CCA and DNR CCA. Patient elects to be full code. * Total [id number] time 17 minutes. Charges/Coding Visit Charges Inpatient E&M: 52896 Init Hosp L3 Procedures Hospitalists Procedures: 08948 Advncd Care Plan 30 Min
[2022-03-16] MEDS: Labetalol (Prefilled) 20 MG/4 ML IV (04:20)
[2022-03-16 07:42] LABS: Absolute Lymphocyte Count 0.58 X10^3/uL (0.83-4.51); Absolute Neutrophil Count 3.4 X10^3/uL (2.0-7.7); Basophil# 0.01 X10^3/uL; Basophil% 0.2 % (0-1); Hematocrit 37.1 % (40-54); Hemoglobin 12.8 g/dL (13.0-16.5); Lymphocyte # 0.58 X10^3/ul (0.83-4.51); Lymphocyte % 13.5 % (19-41); Mean Corp Hgb Conc 34.5 g/dL (32-36); Mean Corpuscular Hgb 33.8 pg (27.0-32.0); Mean Corpuscular Volume 97.9 fL (80-94); Mean Platelet Vol. 10.7 fl (6.2-12.0); Monocyte# 0.27 X10^3/uL; Monocyte% 6.3 % (0-10); NRBC Flagged by Analyzer 0 % (0-5); Neutrophil # 3.43 X10^3/uL (2.7-7.7); Neutrophil % 79.8 % (47-70); POSITIVE COUNT YES; POSITIVE DIFFERENTIAL YES; RBC Distribution Width CV 15.7 % (11.6-14.6); RBC Distribution Width SD 55.9 fl (35.1-43.9); Red Blood Count 3.79 M/mm3 (4.6-6.2); White Blood Count 4.3 K/mm3 (4.4-11.0)
[2022-03-16 07:50] LABS: Differential Indicated SCAN CRITERIA MET; Platelet Count 37 K/mm3 (150-450)
[2022-03-16 08:29] LABS: ALB/GLOB Ratio 0.8 RATIO (0.9-2.4); AST(SGOT) 46 U/L (15-37); Alanine Aminotransfer ALT/SGPT 32 U/L (16-61); Albumin, Serum 2.9 g/dL (3.2-5.0); Alkaline Phosphatase 96 U/L (45-117); Anion Gap 7 (5-15); BUN 9 mg/dL (7-18); BUN/Creat Ratio 15.8 RATIO (10-20); Calcium,Total 8.1 mg/dL (8.5-10.1); Chloride 107 mmol/L (98-107); Creatinine, Serum 0.57 mg/dL (0.70-1.30); EST Glomerular Filtration Rate 155 mL/min (>60); Est Glom Filt Rate - Afr Amer 187 mL/min (>60); Estimated Creatinine Clearance 144.95 ml/min; Globulin 3.8 g/dL (2.2-4.2); Glucose 186 mg/dL (74-106); Potassium 3.9 mmol/L (3.5-5.1); Protein, Total 6.7 g/dL (6.4-8.2); Sodium Level 141 mmol/L (136-145)
--- NOTE | 2022-03-16 08:36 | PN.HOSP_ITS ---
Subjective Subjective f/u GIB. Feeling fairly well at time of evaluation, no more nausea or emesis, has had a bowel movement with no blood. Has abdominal pain that is chronic and unchanged from baseline. No other complaints Objective Data Objective Data Vital Signs: Vital Signs Temp Pulse Resp BP Pulse Ox O2 Del Method O2 Flow Rate 98.0 F 93 18 135/91 H 95 Nasal Cannula 2 03/16/22 07:41 03/16/22 07:41 03/16/22 07:41 03/16/22 07:41 03/16/22 07:41 03/16/22 08:09 03/16/22 08:09 Oxygen Flow Rate (L/min) 2 Oxygen Delivery Method Nasal Cannula Weight: 98 kg Body Mass Index (BMI) 30.1 Intake & Output: Intake and Output for Last 24 Hours 03/14/22 03/15/22 03/16/22 23:59 23:59 23:59 Intake Total 1136.2 / 1136.2 Balance 1136.2 / 1136.2 Lab / Micro Data Result Diagrams: 03/16/22 07:17 03/16/22 07:17 Labs: Laboratory Results - last 24 hr 03/16/22 01:53: WBC 5.8, RBC 3.91 L, Hgb 13.2, Hct 37.8 L, MCV 96.7 H, MCH 33.8 H, MCHC 34.9, RDW Std Deviation 55.7 H, RDW Coeff of Delilah 15.7 H, Plt Count 53 L, MPV 9.9, Immature Gran % (Auto) 0.200, Neut % (Auto) 53.7, Lymph % (Auto) 31.7, [place] % (Auto) 13.4 H, Eos % (Auto) 0.7, Baso % (Auto) 0.3, Absolute Neuts (auto) 3.1, Absolute Lymphs (auto) 1.84, Nucleated RBC % 0 03/16/22 01:53: PT 18.0 H, INR 1.5, APTT 35.6 03/16/22 01:53: Sodium 142, Potassium 3.6, Chloride 107, Carbon Dioxide 25.0, Anion Gap 10, BUN 9, Creatinine 0.63 L, Estim Creat Clear Calc 131.14, Est GFR (MDRD) Af Amer 166, Est GFR (MDRD) Non-Af 138, BUN/Creatinine Ratio 14.3, Glucose 136 H, Calcium 8.5, Total Bilirubin 1.10 H, Direct Bilirubin 0.52 H, AST 46 H, ALT 31, Alkaline Phosphatase 99, Total Protein 6.4, Albumin 2.8 L, Globulin 3.6, Lipase 387 03/16/22 02:00: Ethyl Alcohol 25.0 03/16/22 07:17: WBC 4.3 L, RBC 3.79 L, Hgb 12.8 L, Hct 37.1 L, MCV 97.9 H, MCH 33.8 H, MCHC 34.5, RDW Std Deviation 55.9 H, RDW Coeff of Delilah 15.7 H, Plt Count 37 L*, MPV 10.7, Immature Gran % (Auto) 0.200, Neut % (Auto) 79.8 H, Lymph % (Auto) 13.5 L, [place] % (Auto) 6.3, Eos % (Auto) 0.0, Baso % (Auto) 0.2, Absolute Neuts (auto) 3.4, Absolute Lymphs (auto) 0.58 L, Nucleated RBC % 0 03/16/22 07:17: Sodium 141, Potassium 3.9, Chloride 107, Carbon Dioxide 27.0, Anion Gap 7, BUN 9, Creatinine 0.57 L, Estim Creat Clear Calc 144.95, Est GFR (MDRD) Af Amer 187, Est GFR (MDRD) Non-Af 155, BUN/Creatinine Ratio 15.8, Glucose 186 H, Calcium 8.1 L, Total Bilirubin 1.50 H, AST 46 H, ALT 32, Alkaline Phosphatase 96, Total Protein 6.7, Albumin 2.9 L, Globulin 3.8, Albumin/Globulin Ratio 0.8 L Micro: Microbiology 03/16/22 03:55 Vomitus Gastric Occult Blood - Final 03/16/22 02:24 Stool Stool Occult Blood (ALEXEI) - Final Occult Blood Positive Radiography Diagnostic Testing: Radiology Impression Abdomen/Pelvis CT 03/16/22 02:38 IMPRESSION: 1. Cirrhosis, portosystemic collateral vasculature and splenomegaly, suggestive of portal hypertension. 2. Mild wall thickening in the proximal colon, nonspecific in the setting of cirrhosis, may represent hepatic colopathy versus colitis. 3. Mild urinary bladder wall thickening, may be due to decompression or cystitis. 4. Cholelithiasis with mild pericholecystic inflammatory changes. Nonspecific in the setting of cirrhosis, cannot exclude cholecystitis or hepatitis. 5. Clustered centrilobular nodularity in the lower lobes, may represent aspiration pneumonitis or infectious bronchiolitis. Electronically Signed: Jaspal Rodriguez MD at 3:38 EST , Chest X-Ray 03/16/22 02:51 IMPRESSION: Atelectasis versus infiltrate at the medial aspect of the right lower lung. Electronically Signed: Nahum Siddiqi MD at 4:23 EST , Physical Exam Const alert and no apparent distress Constitutional Narrative: Oriented HEENT normocephalic and head/scalp atraumatic Eyes Eyes Narrative: EOM grossly intact, anicteric Neck supple Resp normal respiratory effort and clear to auscultation bilaterally Cardio regular rate and regular rhythm GI GI Narrative: Slightly mildly tender diffusely, no rebound, no guarding, no rigidity Extremity Extremity Narrative: No edema appreciated Neuro moves all extremities Neuro Narrative: No overt focal deficits appreciated Psych Psych Narrative: Cooperative Assessment & Plan Assessment/Plan (1) Hematemesis: (2) Esophageal varices: PLAN: Plan 61-year-old male with history of alcoholism, cirrhosis with esophageal varices, marijuana use, thrombocytopenia, PAD who presented to [facility] 03/16/2022 with complaint of vomiting blood. He has a history of cirrhosis with esophageal and gastric varices. Had EGD 03/10/2022 with banding of esophageal varices. Has continued to drink and last drink was few hours prior to admission. Did start having nausea and vomiting afternoon of presentation and emesis was bright red. Denied any blood in stool or abdominal pain. When he presented BP 155/67 with heart rate of 101, O2 sat 94% on 2 L of O2 but desaturated to 85% on room air. Platelets were 53 and hemoglobin 13.2, chronically thrombocytopenic. INR 1.5 and creatinine 0.63 with total bili of 1.1. Serum alcohol 25. CT abdomen pelvis showed cirrhosis and portosystemic collateral vasculature and splenomegaly suggestive of portal hypertension. Also noted cholelithiasis and mild pericholecystic inflammatory changes as well as mild wall thickening the proximal colon. Additionally clustered centrilobular nodularity in the lower lobes which was thought to represent aspiration pneumonitis or infectious bronchiolitis. Started on octreotide drip in the ED and was admitted for hematemesis and upper GI bleed likely due to bleeding from esophageal varices in setting of alcoholic liver cirrhosis. #Upper GI bleed presumably due to bleeding esophageal varices in setting of alcoholic liver cirrhosis Had EGD and banding on 03/10 with GI Hemoglobin 13.2 on admission and 12.8 today, type and cross for blood. Trend hemoglobin BP will less than 120 systolic, given IV labetalol. N.p.o. On octreotide and PPI drip GI consulted #Alcoholic liver cirrhosis Continues to drink, alcohol level 25 on admission And takes lactulose, rifaximin, furosemide, spironolactone at home which were held as he is n.p.o. and has presumed bleeding esophageal varices T bili 1.5 today, AST 46 creatinine 0.57 albumin 2.9 #Alcohol use disorder Last drink day of presentation and alcohol level was 25 And presentation on active withdrawal Placed on CIWA with as needed Ativan Reports he drinks 6-7 a week, no current evidence of withdrawal #Aspiration pneumonitis Desaturated to 85% on room air CT did show some evidence of possible aspiration pneumonitis Started on IV Unasyn #Thrombocytopenia Chronic likely due to his alcoholic cirrhosis Trending 53 on admission and 37 today #DVT ppx: SCDs Sravanthi Cool MD
[2022-03-16 09:36] LABS: Differential Comment SCANNED; Platelet Estimate MKD DEC (ADEQ)
--- NOTE | 2022-03-16 16:51 | EX.PCM.CON.G ---
HPI Consult Data Date of Consult: 03/16/22 HPI Narrative Reason for Consultation: Hematemesis HPI Narrative: JB ALARCON, is a 61-year-old male with alcoholic cirrhosis, hepatic encephalopathy, gastric and esophageal varices, varices throughout the abdomen on CT scan, chronic nausea, chronic abdominal pain, history of marijuana hyperemesis.? He is not interested in quitting alcohol or marijuana.? He has declined referral to a tertiary center for TIPS procedure.? He has had cardiology work-up because of change in his ECG that was found on PAT for EGD.? He continues on furosemide and spironolactone for ascites.? He continues on lactulose and xifaxan for hepatic encephalopathy.?He has multiple BMs per day, no diarrhea or constipation. He continues on PPI therapy.? ?He had an EGD on March 10 with banding of esophageal varices.? He states that he continues to drink and his last drink was a few hours ago.? He reports that around 1230 he developed bouts of nausea and vomiting and that it was bright red blood in nature.? He denies any history of bleeding disorder or blood thinner use.? He states there is been no loose stool or diarrhea and he denies any dark or bloody stool.? Secondary to the persistent abdominal pain now accompanied with bouts of bleeding he called EMS and was brought in for evaluation. ON LICENSE OF [facility] Medical History Alcohol use Alcoholic cirrhosis Alcoholism Alcoholism Aortic aneurysm without rupture Arthritis Bruising Cannabis hyperemesis syndrome concurrent with and due to cannabis abuse Cardiology follow-up encounter Chronic abdominal pain Chronic anemia Chronic pain Diastolic dysfunction Esophageal varices in alcoholic cirrhosis Gastric reflux Hematemesis History of echocardiogram History of esophageal varices History of GI bleed History of stress test Hypotension Low iron Marijuana use Pancytopenia Peripheral arterial disease Restless legs Smoker Thrombocytopenia Tobacco use Varices of esophagus determined by endoscopy Walker as ambulation aid Wears glasses Home Medications ferrous sulfate 325 mg (65 mg iron) tablet (iron) 325 mg PO DAILY supplement 03/20/18 [History Last Taken 07/18/21] magnesium oxide 400 mg (241.3 mg magnesium) tablet 400 mg PO TID supplement 03/12/20 [History Last Taken 03/11/20] potassium chloride 10 mEq tablet,extended release 10 meq PO BID supplement 03/12/20 [History Last Taken 03/11/20] tramadol 50 mg tablet 50 mg PO Q6H PRN pain #20 tabs 12/17/20 [Rx Last Taken Unknown] multivitamin 1 tab PO DAILY supplement 12/27/20 [History Last Taken Unknown] meclizine 12.5 mg tablet 12.5 mg PO TID PRN dizziness #90 tabs 01/25/21 [Rx Last Taken Unknown] pantoprazole 40 mg tablet,delayed release 40 mg PO BID gerd 05/22/21 [History Last Taken Unknown] trazodone 100 mg tablet 100 mg PO QHS ANTIDEPRESSANT 07/18/21 [History Last Taken Unknown] promethazine 25 mg tablet 25 mg PO BID PRN nausea and vomiting #60 tabs 11/07/21 [Rx Last Taken Unknown] midodrine 10 mg tablet 10 mg PO TID hypotension #30 tabs 02/18/22 [Rx Last Taken Unknown] thiamine HCl (vitamin B1) 100 mg tablet (Vitamin B-1) 100 mg PO DAILY vitamin #30 tabs 02/18/22 [Rx Last Taken Unknown] vitamin B complex 1 cap PO DAILY 03/07/22 [History Last Taken Unknown] furosemide 20 mg tablet (Lasix) 20 mg PO DAILY WATER PILL 03/16/22 [History Last Taken Unknown] lactulose 10 gram/15 mL oral solution 30 g PO DAILY SEE DOCTOR 03/16/22 [History Last Taken Unknown] rifaximin 550 mg tablet (Xifaxan) 550 mg PO BID HEPATIC ENCEPHALOPATHY 03/16/22 [History Last Taken Unknown] spironolactone 50 mg tablet 50 mg PO BID HYPERTENSION 03/16/22 [History Last Taken Unknown] Allergy/AdvReac Type Severity Reaction Status Date / Time No Known Allergies Allergy Verified 03/10/22 08:37 Family History Mother Cancer Father Lupus Surgical History History of abdominal aortic aneurysm repair (~2013) History of esophagogastroduodenoscopy (EGD) History of removal of cyst Social History household members: none Smoking Status: Light Smoker (<10/day) alcohol intake: current alcohol intake frequency: a few times a week substance use type: marijuana caffeine: No ROS Constitutional Constitutional: Reports fatigue, malaise and weakness; Denies anorexia, chills or fever(s) Eyes Eyes: Denies change in vision ENT HEENT: Denies dysphagia, headache(s), nasal congestion, sinus pressure or sore throat Cardiovascular Cardiovascular: Denies chest pain, dyspnea on exertion, edema, lightheadedness, orthopnea, palpitations, paroxysmal nocturnal dyspnea, rapid heart rate or syncope Respiratory/Chest Respiratory/Chest: Denies cough, dyspnea, shortness of breath at rest, shortness of breath with exertion or wheezing Gastrointestinal Gastrointestinal: Reports abdominal pain, coffee ground emesis, hematemesis, nausea and vomiting; Denies constipation, diarrhea, dyspepsia, hematochezia, loose stools or melena Genitourinary Genitourinary: Denies burning urination, dysuria or hematuria Musculoskeletal Musculoskeletal: Denies arthralgias, joint pain, joint stiffness or myalgias Neurologic Neurologic: Denies confusion, dizziness, focal weakness, headache(s) or numbness Psychiatric Psychiatric: Denies anxiety Endocrine Endocrinology: Denies change in body appearance Hematologic/Lymphatic Hematologic/Lymphatic: Denies anemia Lab / Micro Data Result Diagrams: 03/16/22 07:17 03/16/22 07:17 Labs: Laboratory Results - last 24 hr 03/16/22 01:53: WBC 5.8, RBC 3.91 L, Hgb 13.2, Hct 37.8 L, MCV 96.7 H, MCH 33.8 H, MCHC 34.9, RDW Std Deviation 55.7 H, RDW Coeff of Delilah 15.7 H, Plt Count 53 L, MPV 9.9, Immature Gran % (Auto) 0.200, Neut % (Auto) 53.7, Lymph % (Auto) 31.7, Brule % (Auto) 13.4 H, Eos % (Auto) 0.7, Baso % (Auto) 0.3, Absolute Neuts (auto) 3.1, Absolute Lymphs (auto) 1.84, Nucleated RBC % 0 03/16/22 01:53: PT 18.0 H, INR 1.5, APTT 35.6 03/16/22 01:53: Sodium 142, Potassium 3.6, Chloride 107, Carbon Dioxide 25.0, Anion Gap 10, BUN 9, Creatinine 0.63 L, Estim Creat Clear Calc 131.14, Est GFR (MDRD) Af Amer 166, Est GFR (MDRD) Non-Af 138, BUN/Creatinine Ratio 14.3, Glucose 136 H, Calcium 8.5, Total Bilirubin 1.10 H, Direct Bilirubin 0.52 H, AST 46 H, ALT 31, Alkaline Phosphatase 99, Total Protein 6.4, Albumin 2.8 L, Globulin 3.6, Lipase 387 03/16/22 02:00: Ethyl Alcohol 25.0 03/16/22 07:17: WBC 4.3 L, RBC 3.79 L, Hgb 12.8 L, Hct 37.1 L, MCV 97.9 H, MCH 33.8 H, MCHC 34.5, RDW Std Deviation 55.9 H, RDW Coeff of Delilah 15.7 H, Plt Count 37 L*, MPV 10.7, Immature Gran % (Auto) 0.200, Neut % (Auto) 79.8 H, Lymph % (Auto) 13.5 L, Brule % (Auto) 6.3, Eos % (Auto) 0.0, Baso % (Auto) 0.2, Absolute Neuts (auto) 3.4, Absolute Lymphs (auto) 0.58 L, Nucleated RBC % 0, Differential Comment SCANNED, Diff Path Review June, Platelet Estimate MKD 03/16/22 07:17: Sodium 141, Potassium 3.9, Chloride 107, Carbon Dioxide 27.0, Anion Gap 7, BUN 9, Creatinine 0.57 L, Estim Creat Clear Calc 144.95, Est GFR (MDRD) Af Amer 187, Est GFR (MDRD) Non-Af 155, BUN/Creatinine Ratio 15.8, Glucose 186 H, Calcium 8.1 L, Total Bilirubin 1.50 H, AST 46 H, ALT 32, Alkaline Phosphatase 96, Total Protein 6.7, Albumin 2.9 L, Globulin 3.8, Albumin/Globulin Ratio 0.8 L Micro: Microbiology 03/16/22 03:55 Vomitus Gastric Occult Blood - Final 03/16/22 02:24 Stool Stool Occult Blood (ALEXEI) - Final Occult Blood Positive Radiology Impression Abdomen/Pelvis CT 03/16/22 02:38 IMPRESSION: 1. Cirrhosis, portosystemic collateral vasculature and splenomegaly, suggestive of portal hypertension. 2. Mild wall thickening in the proximal colon, nonspecific in the setting of cirrhosis, may represent hepatic colopathy versus colitis. 3. Mild urinary bladder wall thickening, may be due to decompression or cystitis. 4. Cholelithiasis with mild pericholecystic inflammatory changes. Nonspecific in the setting of cirrhosis, cannot exclude cholecystitis or hepatitis. 5. Clustered centrilobular nodularity in the lower lobes, may represent aspiration pneumonitis or infectious bronchiolitis. Electronically Signed: Jaspal Rodriguez MD at 3:38 EST , Chest X-Ray 03/16/22 02:51 IMPRESSION: Atelectasis versus infiltrate at the medial aspect of the right lower lung. Electronically Signed: Nahum Siddiqi MD at 4:23 EST , Assessment & Plan Assessment/Plan (1) Hematemesis: PLAN: The differential diagnosis for upper GI bleed does include Danika-Jones tear, bleeding of esophageal varices, ulcer from esophageal banding, upper GI bleed from gastric varices. He should undergo an upper endoscopy to evaluate his upper GI tract. Continue to keep NPO. His hemoglobin has not decreased much which is really good. His platelets continue to drop. Continue octreotide and PPI drip. He will have an upper endoscopy tomorrow. Charges/Coding Visit Charges Inpatient E&M: 90801 Init Hosp L3
[2022-03-16] MEDS: Morphine 2 MG/ML Syringe IV (22:31)
[2022-03-16] MEDS: 0.9% Saline Lock 10 ML Syringe IV (22:38)
[2022-03-17] VITALS (11 sets, daily range): BP systolic 95–131; BP diastolic 45–80; PULSE 68–86; RESP 16–18; TEMP 36.2–36.9; O2SAT 90–100; BMI 30.1
[2022-03-17] MEDS: Morphine 2 MG/ML Syringe IV ×2 (04:34→21:47)
--- NOTE | 2022-03-17 05:55 | EKG12_ITS ---
Test Reason : AM EKG Blood Pressure : / mmHG Vent. Rate : 070 BPM Atrial Rate : 070 BPM P-R Int : 188 ms QRS Dur : 100 ms QT Int : 466 ms P-R-T Axes : 055 057 074 degrees QTc Int : 503 ms Normal sinus rhythm Prolonged QT Abnormal ECG Confirmed by AMANDA DAN, DEYANIRA ([id number]), editor in chief ANNABELLA TRIANA ([id number]) on 03/19/2022 9:53:10 AM Referred By: Confirmed By:DEYANIRA PATEL MD
[2022-03-17 06:08] LABS: Absolute Lymphocyte Count 1.98 X10^3/uL (0.83-4.51); Absolute Neutrophil Count 2.9 X10^3/uL (2.0-7.7); Basophil# 0.01 X10^3/uL; Basophil% 0.2 % (0-1); Eosinophil# 0.07 X10^3/uL; Eosinophils% 1.3 % (0-5); Hematocrit 34.7 % (40-54); Hemoglobin 11.7 g/dL (13.0-16.5); Lymphocyte # 1.98 X10^3/ul (0.83-4.51); Lymphocyte % 35.5 % (19-41); Mean Corp Hgb Conc 33.7 g/dL (32-36); Mean Corpuscular Hgb 34.1 pg (27.0-32.0); Mean Corpuscular Volume 101.2 fL (80-94); Monocyte# 0.57 X10^3/uL; Monocyte% 10.2 % (0-10); NRBC Flagged by Analyzer 0 % (0-5); Neutrophil # 2.93 X10^3/uL (2.7-7.7); Neutrophil % 52.6 % (47-70); POSITIVE COUNT YES; Platelet Count 39 K/mm3 (150-450); RBC Distribution Width CV 16.3 % (11.6-14.6); RBC Distribution Width SD 60.3 fl (35.1-43.9); Red Blood Count 3.43 M/mm3 (4.6-6.2); White Blood Count 5.6 K/mm3 (4.4-11.0)
[2022-03-17 06:15] LABS: Differential Indicated SCAN CRITERIA MET
[2022-03-17 06:45] LABS: International Normalized Ratio 1.7; Prothrombin Time (Protime)PT. 19.5 SECONDS (11.7-14.9)
[2022-03-17 06:46] LABS: Partial Thromboplast Time 38.3 Seconds (24.1-36.2)
[2022-03-17 07:07] LABS: ALB/GLOB Ratio 0.7 RATIO (0.9-2.4); AST(SGOT) 46 U/L (15-37); Alanine Aminotransfer ALT/SGPT 27 U/L (16-61); Albumin, Serum 2.3 g/dL (3.2-5.0); Alkaline Phosphatase 79 U/L (45-117); Anion Gap 5 (5-15); BUN 11 mg/dL (7-18); Calcium,Total 7.7 mg/dL (8.5-10.1); Chloride 109 mmol/L (98-107); Creatinine, Serum 0.69 mg/dL (0.70-1.30); EST Glomerular Filtration Rate 125 mL/min (>60); Est Glom Filt Rate - Afr Amer 151 mL/min (>60); Estimated Creatinine Clearance 119.74 ml/min; Globulin 3.3 g/dL (2.2-4.2); Glucose 136 mg/dL (74-106); Potassium 3.3 mmol/L (3.5-5.1); Protein, Total 5.6 g/dL (6.4-8.2); Sodium Level 143 mmol/L (136-145)
[2022-03-17 07:08] LABS: AST(SGOT) 47 U/L (15-37); Alanine Aminotransfer ALT/SGPT 28 U/L (16-61); Albumin, Serum 2.4 g/dL (3.2-5.0); Alkaline Phosphatase 79 U/L (45-117); Anion Gap 5 (5-15); BUN 11 mg/dL (7-18); BUN/Creat Ratio 15.2 RATIO (10-20); Bilirubin, Direct 0.51 mg/dL (0.00-0.30); Calcium,Total 7.6 mg/dL (8.5-10.1); Chloride 108 mmol/L (98-107); Creatinine, Serum 0.72 mg/dL (0.70-1.30); EST Glomerular Filtration Rate 117 mL/min (>60); Est Glom Filt Rate - Afr Amer 142 mL/min (>60); Estimated Creatinine Clearance 114.75 ml/min; Globulin 3.1 g/dL (2.2-4.2); Glucose 142 mg/dL (74-106); Potassium 3.3 mmol/L (3.5-5.1); Protein, Total 5.5 g/dL (6.4-8.2); Sodium Level 142 mmol/L (136-145)
[2022-03-17 07:09] LABS: Anisocytosis 1+; Macrocytosis 2+; Platelet Estimate MKD DEC (ADEQ)
--- NOTE | 2022-03-17 09:10 | PN.HOSP_ITS ---
Subjective Subjective Feels well. Objective Data Objective Data Vital Signs: Vital Signs Temp Pulse Resp BP Pulse Ox O2 Del Method O2 Flow Rate 36.5 C L 77 18 95/74 94 Room Air 2 03/17/22 04:28 03/17/22 04:28 03/17/22 04:28 03/17/22 04:28 03/17/22 08:15 03/17/22 08:15 03/16/22 16:47 Oxygen Flow Rate (L/min) 2 Oxygen Delivery Method Room Air Weight: 98 kg Body Mass Index (BMI) 30.1 Intake & Output: Intake and Output for Last 24 Hours 03/15/22 03/16/22 03/17/22 23:59 23:59 23:59 Intake Total 1890.45 / 1890.45 112 / 112 Output Total 700 / 700 400 / 400 Balance 1190.45 / 1190.45 -288 / -288 Lab / Micro Data Result Diagrams: 03/17/22 05:14 03/17/22 05:14 Labs: Laboratory Results - last 24 hr 03/16/22 07:17: Differential Comment SCANNED, Diff Path Review May raquel Platelet Estimate MKD 03/17/22 05:14: WBC 5.6, RBC 3.43 L, Hgb 11.7 L, Hct 34.7 L, MCV 101.2 H, MCH 34.1 H, MCHC 33.7, RDW Std Deviation 60.3 H, RDW Coeff of Delilah 16.3 H, Plt Count 39 L*, MPV 11.0, Immature Gran % (Auto) 0.200, Neut % (Auto) 52.6, Lymph % (Auto) 35.5, [place] % (Auto) 10.2 H, Eos % (Auto) 1.3, Baso % (Auto) 0.2, Absolute Neuts (auto) 2.9, Absolute Lymphs (auto) 1.98, Nucleated RBC % 0, Diff Path Review June raquel Platelet Estimate MKD JAN, Anisocytosis 1+, Macrocytosis 2+ 03/17/22 05:14: Sodium 143, Potassium 3.3 L, Chloride 109 H, Carbon Dioxide 29.0, Anion Gap 5, BUN 11, Creatinine 0.69 L, Estim Creat Clear Calc 119.74, Est GFR (MDRD) Af Amer 151, Est GFR (MDRD) Non-Af 125, BUN/Creatinine Ratio 16.0, Glucose 136 H, Calcium 7.7 L, Total Bilirubin 1.50 H, AST 46 H, ALT 27, Alkaline Phosphatase 79, Total Protein 5.6 L, Albumin 2.3 L, Globulin 3.3, Albumin/Globulin Ratio 0.7 L 03/17/22 05:14: PT 19.5 H, INR 1.7, APTT 38.3 H 03/17/22 05:14: Sodium 142, Potassium 3.3 L, Chloride 108 H, Carbon Dioxide 29.0, Anion Gap 5, BUN 11, Creatinine 0.72, Estim Creat Clear Calc 114.75, Est GFR (MDRD) Af Amer 142, Est GFR (MDRD) Non-Af 117, BUN/Creatinine Ratio 15.2, Glucose 142 H, Calcium 7.6 L, Total Bilirubin 1.40 H, Direct Bilirubin 0.51 H, AST 47 H, ALT 28, Alkaline Phosphatase 79, Total Protein 5.5 L, Albumin 2.4 L, Globulin 3.1 Micro: Microbiology 03/16/22 03:55 Vomitus Gastric Occult Blood - Final 03/16/22 02:24 Stool Stool Occult Blood (ALEXEI) - Final Occult Blood Positive Physical Exam Const alert and no apparent distress Resp normal respiratory effort, no retractions, no use of accessory muscles and clear to auscultation bilaterally Cardio regular rate, regular rhythm, S1 normal heart sound and S2 normal heart sound GI normal to inspection, nondistended, normoactive bowel sounds, soft to palpation, non-tender and non-distended Assessment & Plan Assessment/Plan (1) Hematemesis: PLAN: Resolved. Secondary to esophageal varices EGD performed today that were banded. Continue with PPI and octreotide drip for next 24 hours Advance to full liquid diets. (2) Esophageal varices: PLAN: as above (3) Aspiration pneumonia: PLAN: Aspiration pneumonitis * Patient noted to have desaturated down to 85% in the ED. Concern is he may have aspirated with vomiting. CT of the abdomen and pelvis did show some evidence of aspiration pneumonitis. * Was started on IV Unasyn in the ED. We will continue. PLAN: Plan Chronic conditions * alcoholic liver cirrhosis: On lactulose. Also on furosemide. Hold these as patient is currently NPO. also on rifaximin, spironolactone * alcohol use disorder: last drink was on admission.not in active withdrawal. serum alcohol level is 25 place on CIWA protocol as a precaution * Thrombocytopenia: This is chronic. Likely due to alcoholic liver disease. Will monitor. DVT prophylaxis: SCDs. CODE STATUS: full code * Patient counseled extensively about different types of CODE STATUS including full code, DNR CCA and DNR CCA. Patient elects to be full code. Charges/Coding Visit Charges Inpatient E&M: 84706 Subs Hosp L2
[2022-03-17] MEDS: Lactated Ringers 1,000 ML 15 ML IV (10:49)
--- NOTE | 2022-03-17 12:08 | OP.EGD_ITS ---
Patient Name: Keyon Dillon Procedure Date: 03/17/2022 11:40 AM Date of : 1960 Age: 61 Procedure: Upper GI endoscopy Indications: Esophageal varices with bleeding Providers: Hugo Sheldon DO Medicines: Monitored Anesthesia Care Patient Profile: This is a 61 year old male. Refer to note in patient chart for documentation of history and physical. Patient has symptoms of acute vomiting. He is status post EGD recently. Complications: No immediate complications. Procedure: Pre-Anesthesia Assessment: - Prior to the procedure, a History and Physical was performed, and patient medications and allergies were reviewed. The patient is competent. The risks and benefits of the procedure and the sedation options and risks were discussed with the patient. All questions were answered and informed consent was obtained. Patient identification and proposed procedure were verified by the physician. Mental Status Examination: alert and oriented. Airway Examination: normal oropharyngeal airway and neck mobility. Respiratory Examination: clear to auscultation. CV Examination: normal. Prophylactic Antibiotics: The patient does not require prophylactic antibiotics. Prior Anticoagulants: The patient has taken aspirin, last dose was 1 day prior to procedure. ASA Grade Assessment: III - A patient with severe systemic disease. After reviewing the risks and benefits, the patient was deemed in satisfactory condition to undergo the procedure. The anesthesia plan was to use monitored anesthesia care (MAC). Immediately prior to administration of medications, the patient was re-assessed for adequacy to receive sedatives. The heart rate, respiratory rate, oxygen saturations, blood pressure, adequacy of pulmonary ventilation, and response to care were monitored throughout the procedure. The physical status of the patient was re-assessed after the procedure. After obtaining informed consent, the endoscope was passed under direct vision. Throughout the procedure, the patient's blood pressure, pulse, and oxygen saturations were monitored continuously. The gastroscope was introduced through the mouth, and advanced to the second part of duodenum. The upper GI endoscopy was accomplished without difficulty. The patient tolerated the procedure well. Moderate Sedation: Moderate (conscious) sedation was personally administered by an anesthesia professional. The following parameters were monitored: oxygen saturation, heart rate, blood pressure, respiratory rate, EKG, adequacy of pulmonary ventilation, and response to care. Scope In: 11:45:51 AM Scope Out: 11:51:30 AM Total Procedure Duration Time 0 hours 5 minutes 39 seconds Findings: Grade II varices were found in the lower third of the esophagus. They were 5 mm in largest diameter. Two bands were successfully placed with incomplete eradication of varices. Bleeding had stopped at the end of the procedure. Type 2 gastroesophageal varices (GOV2, esophageal varices which extend along the fundus) with no bleeding were found in the cardia, in the gastric fundus and on the greater curvature of the stomach. There were stigmata of recent bleeding. They were 5 mm in largest diameter. The second portion of the duodenum was normal. Severe portal hypertensive gastropathy was found in the gastric body. Coagulation for hemostasis using argon plasma at 0.3 liters/minute and 20 hyman was successful. Impression: - Grade II esophageal varices. Incompletely eradicated. Banded. - Type 2 gastroesophageal varices (GOV2, esophageal varices which extend along the fundus), without bleeding. - Normal second portion of the duodenum. - No specimens collected. Recommendation: - He needs evaluation for TIPS procedure. It has been set up for him in the past to undergo an evaluation for TIPS procedure but he did not go to the appointments. - Continue PPI drip and Octreotide x 24 hours - Full liquid diet. - Continue present medications. Procedure Code(s): --- Professional --- 17845, Esophagogastroduodenoscopy, flexible, transoral; with band ligation of esophageal/gastric varices 27643, 59, Esophagogastroduodenoscopy, flexible, transoral; with control of bleeding, any method CPT copyright 2017 [employer]. All rights reserved. The codes documented in this report are preliminary and upon parent aide review may be revised to meet current compliance requirements. Hugo Sheldon DO 03/17/2022 12:07:40 PM This report has been signed electronically. Number of Addenda: 0 Note Initiated On: 03/17/2022 11:40 AM
--- NOTE | 2022-03-17 12:08 | OP.CCLET_ITS ---
03/17/2022 Alice Cuellar [address] [facility] [place] [address] Re : Upper GI endoscopy procedure for Keyon Dillon Dear Dr. Cuellar This procedure was performed on Thursday, March 17, 2022. My impressions and recommendations are as follows: Impressions : - Grade II esophageal varices. Incompletely eradicated. Banded. - Type 2 gastroesophageal varices (GOV2, esophageal varices which extend along the fundus), without bleeding. - Normal second portion of the duodenum. - No specimens collected. Recommendations : - He needs evaluation for TIPS procedure. It has been set up for him in the past to undergo an evaluation for TIPS procedure but he did not go to the appointments. - Continue PPI drip and Octreotide x 24 hours - Full liquid diet. - Continue present medications. My findings are described in the full procedure note, which is enclosed. If I can be of further assistance, please feel free to contact me at . Sincerely, Hugo Friend, 03/17/2022 12:07:40 PM This report has been signed electronically.
[2022-03-17] MEDS: 0.9% Saline Lock 10 ML Syringe IV ×2 (12:36→21:50)
[2022-03-17 13:38] LABS: Pathologist Review Reviewed
--- NOTE | 2022-03-17 15:05 | CASEMGMT ---
VAL NEGRON Face to Face with patient for initial transition planning/care coordination assessment. VAL NEGRON introduced self and role at [facility]. Patient lying in bed, alert and oriented. Patient willing to participate in assessment and is able to answer all questions appropriately. Care providers, pharmacy, and demographics verified. Patient wishes to discharge home, will follow for possible HHC. Patient states he has no further needs or concerns at this time. CM to follow for discharge planning needs that may arise. PCP: Pool Specialists: none Preferred Pharmacy: [facility] Insurance: DUANE BROOKS Prescription Benefit: yes Living Will/HPOA: none LNOK: Living Arrangements: Patient lives with in a 3rd floor apartment with elevator to enter. Patient states he is independent at home. Transportation: friend DME/HHC: Patient has walker, shower chair, and grab bars at home. Patient has been to [facility] in the past. No previous HHC. Patient states he smokes 1 pack per week of cigarettes. Patient states he drinks 3-4 beer per week. Patient states he smokes occasional marijuana. Patient states he is active with Palliative Care. Disposition Plan: Patient to discharge home with family support and follow-up plans in place. Will monitor for HHC. Florence KO, RN, CM
[2022-03-18] VITALS (10 sets, daily range): BP systolic 116–138; BP diastolic 58–76; PULSE 65–73; RESP 16–18; TEMP 36.5–37.1; O2SAT 93–99
[2022-03-18] MEDS: Ondansetron 4 MG/2 ML Vial IV (01:17)
[2022-03-18 07:02] LABS: Absolute Lymphocyte Count 1.43 X10^3/uL (0.83-4.51); Absolute Neutrophil Count 1.7 X10^3/uL (2.0-7.7); Basophil# 0.01 X10^3/uL; Basophil% 0.3 % (0-1); Eosinophil# 0.07 X10^3/uL; Eosinophils% 1.9 % (0-5); Hematocrit 35.3 % (40-54); Lymphocyte # 1.43 X10^3/ul (0.83-4.51); Lymphocyte % 39.6 % (19-41); Mean Corpuscular Hgb 34.2 pg (27.0-32.0); Mean Corpuscular Volume 100.6 fL (80-94); Mean Platelet Vol. 9.9 fl (6.2-12.0); Monocyte# 0.43 X10^3/uL; Monocyte% 11.9 % (0-10); NRBC Flagged by Analyzer 0 % (0-5); Neutrophil # 1.66 X10^3/uL (2.7-7.7); POSITIVE COUNT YES; RBC Distribution Width CV 15.9 % (11.6-14.6); RBC Distribution Width SD 58.9 fl (35.1-43.9); Red Blood Count 3.51 M/mm3 (4.6-6.2); White Blood Count 3.6 K/mm3 (4.4-11.0)
[2022-03-18 07:03] LABS: Differential Indicated SCAN CRITERIA MET
[2022-03-18 07:05] LABS: Platelet Count 32 K/mm3 (150-450)
[2022-03-18 07:18] LABS: Differential Comment SCANNED; Platelet Estimate MKD DEC (ADEQ)
[2022-03-18 07:41] LABS: ALB/GLOB Ratio 0.7 RATIO (0.9-2.4); AST(SGOT) 68 U/L (15-37); Alanine Aminotransfer ALT/SGPT 39 U/L (16-61); Albumin, Serum 2.3 g/dL (3.2-5.0); Alkaline Phosphatase 78 U/L (45-117); Anion Gap 6 (5-15); BUN 9 mg/dL (7-18); BUN/Creat Ratio 13.2 RATIO (10-20); Calcium,Total 7.7 mg/dL (8.5-10.1); Chloride 108 mmol/L (98-107); Creatinine, Serum 0.68 mg/dL (0.70-1.30); EST Glomerular Filtration Rate 125 mL/min (>60); Est Glom Filt Rate - Afr Amer 151 mL/min (>60); Globulin 3.2 g/dL (2.2-4.2); Glucose 123 mg/dL (74-106); Potassium 3.5 mmol/L (3.5-5.1); Protein, Total 5.5 g/dL (6.4-8.2); Sodium Level 142 mmol/L (136-145)
--- NOTE | 2022-03-18 09:06 | PN.HOSP_ITS ---
Subjective Subjective Did not sleep well last night but just kept waking up intermittently. No further bleeding that he is aware of. Objective Data Objective Data Vital Signs: Vital Signs Temp Pulse Resp BP Pulse Ox O2 Del Method O2 Flow Rate 36.6 C 66 18 138/71 H 93 Room Air 4 03/18/22 05:20 03/18/22 05:20 03/18/22 05:20 03/18/22 05:20 03/18/22 08:50 03/18/22 08:50 03/17/22 12:10 Oxygen Flow Rate (L/min) 4 Oxygen Delivery Method Room Air Weight: 98 kg Body Mass Index (BMI) 30.1 Intake & Output: Intake and Output for Last 24 Hours 03/16/22 03/17/22 03/18/22 23:59 23:59 23:59 Intake Total 1890.45 / 1890.45 861.50 / 1261.50 829.5 / 829.5 Output Total 700 / 700 400 / 1000 1075 / 1075 Balance 1190.45 / 1190.45 461.50 / 261.50 -245.5 / -245.5 Lab / Micro Data Result Diagrams: 03/18/22 06:25 03/18/22 06:25 Labs: Laboratory Results - last 24 hr 03/17/22 05:14: Diff Path Review Reviewed 03/18/22 06:25: WBC 3.6 L, RBC 3.51 L, Hgb 12.0 L, Hct 35.3 L, MCV 100.6 H, MCH 34.2 H, MCHC 34.0, RDW Std Deviation 58.9 H, RDW Coeff of Delilah 15.9 H, Plt Count 32 L*, MPV 9.9, Immature Gran % (Auto) 0.300, Neut % (Auto) 46.0 L, Lymph % (Auto) 39.6, [place]ancey % (Auto) 11.9 H, Eos % (Auto) 1.9, Baso % (Auto) 0.3, Absolute Neuts (auto) 1.7 L, Absolute Lymphs (auto) 1.43, Nucleated RBC % 0, Differential Comment SCANNED, Diff Path Review June, Platelet Estimate MKD 03/18/22 06:25: Sodium 142, Potassium 3.5, Chloride 108 H, Carbon Dioxide 28.0, Anion Gap 6, BUN 9, Creatinine 0.68 L, Estim Creat Clear Calc 121.50, Est GFR (MDRD) Af Amer 151, Est GFR (MDRD) Non-Af 125, BUN/Creatinine Ratio 13.2, Glucose 123 H, Calcium 7.7 L, Total Bilirubin 1.60 H, AST 68 H, ALT 39, Alkaline Phosphatase 78, Total Protein 5.5 L, Albumin 2.3 L, Globulin 3.2, Albumin/Globulin Ratio 0.7 L Micro: Microbiology 03/16/22 03:55 Vomitus Gastric Occult Blood - Final 03/16/22 02:24 Stool Stool Occult Blood (ALEXEI) - Final Occult Blood Positive Physical Exam Const alert and no apparent distress Resp normal respiratory effort, no retractions, no use of accessory muscles and clear to auscultation bilaterally Cardio regular rate, regular rhythm, S1 normal heart sound and S2 normal heart sound GI normal to inspection, nondistended, normoactive bowel sounds, soft to palpation, non-tender and non-distended Extremity normal to inspection Assessment & Plan Assessment/Plan (1) Hematemesis: PLAN: Resolved. Secondary to esophageal varices EGD performed today that were banded. Continue with PPI and octreotide drip for next 24 hours Advance to full liquid diets. (2) Esophageal varices: PLAN: as above Will need to follow-up with a tertiary facility for TIPS (3) Aspiration pneumonia: PLAN: Aspiration pneumonitis * Patient noted to have desaturated down to 85% in the ED. Concern is he may have aspirated with vomiting. CT of the abdomen and pelvis did show some evidence of aspiration pneumonitis. * Was started on IV Unasyn in the ED. We will continue. PLAN: Plan Chronic conditions * alcoholic liver cirrhosis: On lactulose. Also on furosemide. Hold these as patient is currently NPO. also on rifaximin, spironolactone * alcohol use disorder: last drink was on admission.not in active withdrawal. serum alcohol level is 25 place on CIWA protocol as a precaution Thrombocytopenia: This is chronic. Likely due to alcoholic liver disease. Will monitor. DVT prophylaxis: SCDs. CODE STATUS: full code Charges/Coding Visit Charges Inpatient E&M: 66762 Subs Hosp L2
[2022-03-18 09:26] LABS: Pathologist Review Reviewed
[2022-03-18] MEDS: Morphine 2 MG/ML Syringe IV ×2 (09:30→22:30)
[2022-03-18] MEDS: 0.9% Saline Lock 10 ML Syringe IV ×2 (09:30→22:33)
--- NOTE | 2022-03-18 17:03 | PCM.PROGNOTE ---
Subjective Subjective Patient underwent an upper endoscopy yesterday because of an upper GI bleed. He is not having any signs of bleeding at this time. Objective Data Objective Data Vital Signs: Vital Signs Temp Pulse Resp BP Pulse Ox O2 Del Method O2 Flow Rate 97.8 F 71 18 135/65 H 98 Room Air 4 03/18/22 15:20 03/18/22 15:20 03/18/22 15:20 03/18/22 15:20 03/18/22 15:20 03/18/22 15:20 03/17/22 12:10 Oxygen Flow Rate (L/min) 4 Oxygen Delivery Method Room Air Weight: 216 lb 0.848 oz Body Mass Index (BMI) 30.1 Intake & Output: Intake and Output for Last 24 Hours 03/16/22 03/17/22 03/18/22 23:59 23:59 23:59 Intake Total 1890.45 / 1890.45 861.50 / 1261.50 1344.50 / 1344.50 Output Total 700 / 700 400 / 1000 1075 / 1075 Balance 1190.45 / 1190.45 461.50 / 261.50 269.50 / 269.50 Lab / Micro Data Result Diagrams: 03/18/22 06:25 03/18/22 06:25 Labs: Laboratory Results - last 24 hr 03/16/22 07:17: Diff Path Review Reviewed 03/18/22 06:25: WBC 3.6 L, RBC 3.51 L, Hgb 12.0 L, Hct 35.3 L, MCV 100.6 H, MCH 34.2 H, MCHC 34.0, RDW Std Deviation 58.9 H, RDW Coeff of Delilah 15.9 H, Plt Count 32 L*, MPV 9.9, Immature Gran % (Auto) 0.300, Neut % (Auto) 46.0 L, Lymph % (Auto) 39.6, [place] % (Auto) 11.9 H, Eos % (Auto) 1.9, Baso % (Auto) 0.3, Absolute Neuts (auto) 1.7 L, Absolute Lymphs (auto) 1.43, Nucleated RBC % 0, Differential Comment SCANNED, Diff Path Review June, Platelet Estimate MKD 03/18/22 06:25: Sodium 142, Potassium 3.5, Chloride 108 H, Carbon Dioxide 28.0, Anion Gap 6, BUN 9, Creatinine 0.68 L, Estim Creat Clear Calc 121.50, Est GFR (MDRD) Af Amer 151, Est GFR (MDRD) Non-Af 125, BUN/Creatinine Ratio 13.2, Glucose 123 H, Calcium 7.7 L, Total Bilirubin 1.60 H, AST 68 H, ALT 39, Alkaline Phosphatase 78, Total Protein 5.5 L, Albumin 2.3 L, Globulin 3.2, Albumin/Globulin Ratio 0.7 L Micro: Microbiology 03/16/22 03:55 Vomitus Gastric Occult Blood - Final 03/16/22 02:24 Stool Stool Occult Blood (ALEXEI) - Final Occult Blood Positive Physical Exam Const alert and no apparent distress Resp normal respiratory effort, no retractions, no use of accessory muscles and clear to auscultation bilaterally Cardio regular rate, regular rhythm, S1 normal heart sound and S2 normal heart sound GI normal to inspection, nondistended, normoactive bowel sounds, soft to palpation, non-tender and non-distended Extremity normal to inspection Assessment & Plan Assessment/Plan (1) Hematemesis: PLAN: Status post banding of esophageal varices as etiology of his GI bleeding. He also has some engorged gastric varices that is current being treated with PPI and octreotide. Continue to monitor hemoglobin. (2) Esophageal varices: PLAN: He will have repeat upper endoscopy in the next stage week. Commend continue PPI. And low dose nadolol 10 mg p.o. twice daily. (3) Aspiration pneumonia: PLAN: He is on IV antibiotics recommended continue that. PLAN: Plan His meld is 15 and he is a child Chatterjee class C with mild ascites that does not need paracentesis at this time. Continue Xifaxan, lactulose. No narcotics. Outpatient referral for TIPS procedure Charges/Coding Visit Charges Inpatient E&M: 52344 Subs Hosp L3
[2022-03-19] VITALS (8 sets, daily range): BP systolic 97–130; BP diastolic 53–84; PULSE 65–71; RESP 16–18; TEMP 36.3–36.7; O2SAT 95–98
--- NOTE | 2022-03-19 08:00 | PN_ITS ---
Subjective Subjective Patient continues to not have any more problems with hematemesis at this time and is tolerating a diet. Objective Data Objective Data Vital Signs: Vital Signs Temp Pulse Resp BP Pulse Ox O2 Del Method O2 Flow Rate 98.1 F 66 18 130/53 H 95 Room Air 4 03/19/22 10:08 03/19/22 10:08 03/19/22 10:08 03/19/22 10:08 03/19/22 10:24 03/19/22 10:24 03/17/22 12:10 Oxygen Flow Rate (L/min) 4 Oxygen Delivery Method Room Air Weight: 216 lb 0.848 oz Body Mass Index (BMI) 30.1 Intake & Output: Intake and Output for Last 24 Hours 03/17/22 03/18/22 03/19/22 23:59 23:59 23:59 Intake Total 861.50 / 1261.50 1456.50 / 1456.50 528.17 / 528.17 Output Total 400 / 1000 1075 / 1825 1025 / 1025 Balance 461.50 / 261.50 381.50 / -368.50 -496.83 / -496.83 Lab / Micro Data Result Diagrams: 03/19/22 08:22 03/18/22 06:25 Labs: Laboratory Results - last 24 hr 03/18/22 06:25: Diff Path Review Reviewed 03/19/22 08:22: WBC 2.9 L, RBC 3.49 L, Hgb 11.8 L, Hct 34.4 L, MCV 98.6 H, MCH 33.8 H, MCHC 34.3, RDW Std Deviation 55.8 H, RDW Coeff of Delilah 15.6 H, Plt Count 31 L*, MPV 10.3, Immature Gran % (Auto) 0.300, Neut % (Auto) 45.2 L, Lymph % (Auto) 37.8, [place] % (Auto) 14.3 H, Eos % (Auto) 2.1, Baso % (Auto) 0.3, Absolute Neuts (auto) 1.3 L, Absolute Lymphs (auto) 1.08, Nucleated RBC % 0, Diff Path Review June raquel, Platelet Estimate MKD DEC Micro: Microbiology 03/16/22 03:55 Vomitus Gastric Occult Blood - Final 01/15/23 02:24 Stool Stool Occult Blood (ALEXEI) - Final Occult Blood Positive Physical Exam Const alert and no apparent distress Resp normal respiratory effort, no retractions, no use of accessory muscles and clear to auscultation bilaterally Cardio regular rate, regular rhythm, S1 normal heart sound and S2 normal heart sound GI normal to inspection, nondistended, normoactive bowel sounds, soft to palpation, non-tender and non-distended Extremity normal to inspection Assessment & Plan Assessment/Plan (1) Hematemesis: PLAN: Status post banding of esophageal varices as etiology of his GI bleeding. He also has some engorged gastric varices that is current being treated with PPI and octreotide. Continue to monitor hemoglobin. (2) Esophageal varices: PLAN: He will have repeat upper endoscopy in the next stage week. Commend continue PPI. And low dose nadolol 10 mg p.o. twice daily. (3) Aspiration pneumonia: PLAN: He is on IV antibiotics recommended continue that. PLAN: Plan His meld is 15 and he is a child Chatterjee class C with mild ascites that does not ne ed paracentesis at this time. Continue Xifaxan, lactulose. No narcotics. Outpatient referral for TIPS procedure Charges/Coding Visit Charges Inpatient E&M: 77927 [facility] Hosp L3
--- NOTE | 2022-03-19 08:05 | PN.HOSP_ITS ---
Subjective Subjective Tired, but feels well. Objective Data Objective Data Vital Signs: Vital Signs Temp Pulse Resp BP Pulse Ox O2 Del Method O2 Flow Rate 36.7 C 70 16 97/84 H 97 Room Air 4 03/19/22 06:08 03/19/22 06:08 03/19/22 06:08 03/19/22 06:08 03/19/22 06:08 03/19/22 06:08 03/17/22 12:10 Oxygen Flow Rate (L/min) 4 Oxygen Delivery Method Room Air Weight: 98 kg Body Mass Index (BMI) 30.1 Intake & Output: Intake and Output for Last 24 Hours 03/17/22 03/18/22 03/19/22 23:59 23:59 23:59 Intake Total 861.50 / 1261.50 1456.50 / 1456.50 212 / 212 Output Total 400 / 1000 1075 / 1825 1025 / 1025 Balance 461.50 / 261.50 381.50 / -368.50 -813 / -813 Lab / Micro Data Result Diagrams: 03/19/22 08:22 03/18/22 06:25 Labs: Laboratory Results - last 24 hr 03/16/22 07:17: Diff Path Review Reviewed Micro: Microbiology 03/16/22 03:55 Vomitus Gastric Occult Blood - Final 03/16/22 02:24 Stool Stool Occult Blood (ALEXEI) - Final Occult Blood Positive Physical Exam Const alert and no apparent distress Resp normal respiratory effort, no retractions, no use of accessory muscles and clear to auscultation bilaterally Cardio regular rate, regular rhythm, S1 normal heart sound and S2 normal heart sound GI normal to inspection, nondistended, normoactive bowel sounds, soft to palpation, non-tender and non-distended Assessment & Plan Assessment/Plan (1) Hematemesis: PLAN: Resolved. Secondary to esophageal varices EGD performed today that were banded. Advance to full liquid diets. (2) Esophageal varices: PLAN: as above Will need to follow-up with a tertiary facility for TIPS PPI. Nadolol. (3) Aspiration pneumonia: PLAN: Aspiration pneumonitis * Patient noted to have desaturated down to 85% in the ED. Concern is he may have aspirated with vomiting. CT of the abdomen and pelvis did show some evidence of aspiration pneumonitis. * Was started on IV Unasyn in the ED. We will continue. * DC with amox/CA through PLAN: Plan Chronic conditions * alcoholic liver cirrhosis: On lactulose. Also on furosemide. Hold these as patient is currently NPO. also on rifaximin, spironolactone * alcohol use disorder: last drink was on admission.not in active withdrawal. serum alcohol level is 25 place on CILA protocol as a precaution Thrombocytopenia: This is chronic. Likely due to alcoholic liver disease. Will monitor. DVT prophylaxis: SCDs. CODE STATUS: full code Charges/Coding Visit Charges Inpatient E&M: 65549 Subs Hosp L2
[2022-03-19 08:35] LABS: Absolute Lymphocyte Count 1.08 X10^3/uL (0.83-4.51); Absolute Neutrophil Count 1.3 X10^3/uL (2.0-7.7); Basophil# 0.01 X10^3/uL; Basophil% 0.3 % (0-1); Eosinophil# 0.06 X10^3/uL; Eosinophils% 2.1 % (0-5); Hematocrit 34.4 % (40-54); Hemoglobin 11.8 g/dL (13.0-16.5); Lymphocyte # 1.08 X10^3/ul (0.83-4.51); Lymphocyte % 37.8 % (19-41); Mean Corp Hgb Conc 34.3 g/dL (32-36); Mean Corpuscular Hgb 33.8 pg (27.0-32.0); Mean Corpuscular Volume 98.6 fL (80-94); Mean Platelet Vol. 10.3 fl (6.2-12.0); Monocyte# 0.41 X10^3/uL; Monocyte% 14.3 % (0-10); NRBC Flagged by Analyzer 0 % (0-5); Neutrophil # 1.29 X10^3/uL (2.7-7.7); Neutrophil % 45.2 % (47-70); POSITIVE COUNT YES; RBC Distribution Width CV 15.6 % (11.6-14.6); RBC Distribution Width SD 55.8 fl (35.1-43.9); Red Blood Count 3.49 M/mm3 (4.6-6.2); White Blood Count 2.9 K/mm3 (4.4-11.0)
[2022-03-19 08:45] LABS: Platelet Count 31 K/mm3 (150-450)
[2022-03-19 08:46] LABS: Differential Indicated SCAN CRITERIA MET
[2022-03-19 09:20] LABS: Platelet Estimate MKD DEC (ADEQ)
[2022-03-19 09:41] LABS: Pathologist Review Reviewed
[2022-03-19] MEDS: Pantoprazole Sodium 40 MG Tablet PO (10:08)
[2022-03-19] MEDS: 0.9% Saline Lock 10 ML Syringe IV ×2 (10:09→10:16)
[2022-03-19] MEDS: Nadolol 20 MG Tablet 10 MG PO (10:09)
[2022-03-19] MEDS: Morphine 2 MG/ML Syringe IV (10:15)
--- NOTE | 2022-03-19 12:35 | CASEMGMT ---
Addendum entered by Bernabe Smith 03/19/22 13:24: Pt made aware [facility] able to accept and SOC slated for tomorrow. Addendum entered by Bernabe Smith 03/19/22 13:01: Call received from Gini @ [facility]. They are able to accept pt w/SOC tomorrow. Upon further discussion w/Gini, SN and SW also added to C orders. Original Note: VAL NEGRON NOTE: Pt being discharged home today. PT/OT notes reviewed. Additional therapy recommended. VAL NEGRON to room. Introduced self and role. Discussed discharge planning. Pt wishes to discharge home and is interested in HHC. Discussed requirements of being homebound and pt states he is currently homebound. He asked VAL NEGRON to talk w/his re: [facility] to see if she is okay with same. Call placed to , [facility], and states she is agreeable to C. Pt and declined wanting a list of [facility] agencies/choices and state would like referral sent to [facility]. Order for HHC: PT/OT placed. Call to Gini @ [facility] and referral made. She was made aware plan is for discharge today. Neo KO RN, CM
--- NOTE | 2022-03-19 13:14 | PCM.DC ---
Discharge Instructions Diet Discharge Diet: No restrictions Dressing / Incision Call your doctor if you observe: Swelling in the ankles and - (blood in stool. dark tarry stools. ) Follow Up Care Test Results: Test results from this visit will be discussed in further detail at your follow-up appointment, if applicable. Discharge Plan Admission Admit Date/Time: 03/16/22 04:24 Primary Reason for Your Visit: GI bleed. Attending Provider: Kulwant Mccloud Primary Care Provider: Alice Cuellar Consulting Providers: Nery Reina ; Sravanthi Cool Discharge Orders/Prescriptions Prescriptions: New nadolol 20 mg Tablet 10 mg PO BID Qty: 60 0RF amoxicillin-pot clavulanate 875-125 mg tablet 1 tab PO Q12H Qty: 10 0RF Continued tramadol 50 mg tablet 50 mg PO Q6H PRN (Reason: pain) Qty: 20 0RF ferrous sulfate [iron] 325 MG tablet 325 mg PO DAILY Label Comments: pt states will stop 12/30/20 per Friend instruction potassium chloride 10 MEQ tablet extended release 10 meq PO BID magnesium oxide 400 MG tablet 400 mg PO TID Rx Instructions: takes with meals multivitamin Tablet 1 tab PO DAILY trazodone 100 mg Tablet 100 mg PO QHS pantoprazole 40 mg tablet,delayed release (DR/EC) 40 mg PO BID Label Comments: TAKE 1 TABLET BY MOUTH TWICE DAILY vitamin B complex Capsule 1 cap PO DAILY furosemide [Lasix] 20 mg tablet 20 mg PO DAILY spironolactone 50 mg tablet 50 mg PO BID lactulose 10 gram/15 mL solution 30 g PO DAILY Xifaxan 550 mg tablet 550 mg PO BID meclizine 12.5 mg tablet 12.5 mg PO TID PRN (Reason: dizziness) Qty: 90 2RF promethazine 25 mg tablet 25 mg PO BID PRN (Reason: nausea and vomiting) Qty: 60 0RF midodrine 10 mg tablet 10 mg PO TID Qty: 30 5RF Rx Instructions: do not give last dose of day after 6PM or within 4 hrs of bedtime thiamine HCl (vitamin B1) [Vitamin B-1] 100 mg tablet 100 mg PO DAILY Qty: 30 5RF Referrals / Follow Up: [facility] [Provider Group] - Within 1 Month Alice Cuellar DO [Primary Care Provider] - Within 2 Weeks Disposition Disposition (needs filled in before D/C Order can be placed): Home, Self Care
--- NOTE | 2022-03-19 13:20 | DS.PCM_ITS ---
Providers Date of Admission: 03/16/22 Primary Care Physician: Dr. Alice Cuellar, Consultations 03/16/22 05:23 Consult: Gastroenterology Routine Consulting Provider: [facility] Reason for Consult: UGI bleed EMERGENT Consult: No MD Notified: Yes Date Notified: 03/16/22 Time Notified: 04:38 Method of Notification: Text Reason For Visit: UPPER GI BLEED DUE TO BLEEDING ESOPHAGEAL VARICES Diagnosis Discharge Diagnosis (1) Hematemesis: Status: Acute Code(s): K92.0 - Hematemesis Plan: Resolved. Secondary to esophageal varices EGD performed today that were banded. Advance to full liquid diets. (2) Esophageal varices: Status: Acute Code(s): I85.00 - Esophageal varices without bleeding Plan: as above Will need to follow-up with a tertiary facility for TIPS PPI. Nadolol. (3) Aspiration pneumonia: Status: Acute Code(s): J69.0 - Pneumonitis due to inhalation of food and vomit Plan: Aspiration pneumonitis * Patient noted to have desaturated down to 85% in the ED. Concern is he may have aspirated with vomiting. CT of the abdomen and pelvis did show some evidence of aspiration pneumonitis. * Was started on IV Unasyn in the ED. We will continue. * DC with amox/CA through Plan Chronic conditions * alcoholic liver cirrhosis: On lactulose. Also on furosemide. Hold these as patient is currently NPO. also on rifaximin, spironolactone * alcohol use disorder: last drink was on admission.not in active withdrawal. serum alcohol level is 25 place on CIWA protocol as a precaution Thrombocytopenia: This is chronic. Likely due to alcoholic liver disease. Will monitor. DVT prophylaxis: SCDs. CODE STATUS: full code Medications at Discharge Home Medications ferrous sulfate 325 mg (65 mg iron) tablet (iron) 325 mg PO DAILY supplement 03/20/18 magnesium oxide 400 mg (241.3 mg magnesium) tablet 400 mg PO TID supplement 03/12/20 potassium chloride 10 mEq tablet,extended release 10 meq PO BID supplement 03/12/20 tramadol 50 mg tablet 50 mg PO Q6H PRN pain #20 tabs 12/17/20 multivitamin 1 tab PO DAILY supplement 12/27/20 meclizine 12.5 mg tablet 12.5 mg PO TID PRN dizziness #90 tabs 11/26/21 pantoprazole 40 mg tablet,delayed release 40 mg PO BID gerd 05/22/21 trazodone 100 mg tablet 100 mg PO QHS ANTIDEPRESSANT 07/18/21 promethazine 25 mg tablet 25 mg PO BID PRN nausea and vomiting #60 tabs 11/07/21 midodrine 10 mg tablet 10 mg PO TID hypotension #30 tabs 02/18/22 thiamine HCl (vitamin B1) 100 mg tablet (Vitamin B-1) 100 mg PO DAILY vitamin #30 tabs 02/18/22 vitamin B complex 1 cap PO DAILY 03/07/22 furosemide 20 mg tablet (Lasix) 20 mg PO DAILY WATER PILL 03/16/22 lactulose 10 gram/15 mL oral solution 30 g PO DAILY SEE DOCTOR 03/16/22 rifaximin 550 mg tablet (Xifaxan) 550 mg PO BID HEPATIC ENCEPHALOPATHY 03/16/22 spironolactone 50 mg tablet 50 mg PO BID HYPERTENSION 03/16/22 amoxicillin 875 mg-potassium clavulanate 125 mg tablet 1 tab PO Q12H #10 tabs 03/19/22 nadolol 20 mg tablet 10 mg PO BID #60 tabs 03/19/22 Hospital Course Operations None Procedures EGD Summary of Care Provided Minutes Spent on Discharge: 28 Weight / BMI Weight Weight: 98 kg Body Mass Index (BMI) 30.1 ABG / Lab / Microbiology Data Result Diagrams: 03/19/22 08:22 03/18/22 06:25 Laboratory: Laboratory Results - last 24 hr 03/18/22 06:25: Diff Path Review Reviewed 03/19/22 08:22: WBC 2.9 L, RBC 3.49 L, Hgb 11.8 L, Hct 34.4 L, MCV 98.6 H, MCH 33.8 H, MCHC 34.3, RDW Std Deviation 55.8 H, RDW Coeff of Delilah 15.6 H, Plt Count 31 L*, MPV 10.3, Immature Gran % (Auto) 0.300, Neut % (Auto) 45.2 L, Lymph % (Auto) 37.8, [place] % (Auto) 14.3 H, Eos % (Auto) 2.1, Baso % (Auto) 0.3, Absolute Neuts (auto) 1.3 L, Absolute Lymphs (auto) 1.08, Nucleated RBC % 0, Diff Path Review May foll, Platelet Estimate MKD DEC Microbiology: Microbiology 03/16/22 03:55 Vomitus Gastric Occult Blood - Final 03/16/22 02:24 Stool Stool Occult Blood (ALEXEI) - Final Occult Blood Positive D/C Instructions Discharge Diet: No restrictions Call your doctor if you observe: Swelling in the ankles and - (blood in stool. dark tarry stools. ) Meaningful Use Info Meaningful Use Diagnoses (Choose all that apply): None applicable Discharge Plan Admission Admit Date/Time: 03/16/22 04:24 Primary Reason for Your Visit: GI bleed. Attending Provider: Kulwant Mccloud Primary Care Provider: Alice Cuellar Consulting Providers: Nery Reina ; Sravanthi Cool Discharge Orders/Prescriptions Prescriptions: New nadolol 20 mg Tablet 10 mg PO BID Qty: 60 0RF amoxicillin-pot clavulanate 875-125 mg tablet 1 tab PO Q12H Qty: 10 0RF Continued tramadol 50 mg tablet 50 mg PO Q6H PRN (Reason: pain) Qty: 20 0RF ferrous sulfate [iron] 325 MG tablet 325 mg PO DAILY Label Comments: pt states will stop 12/30/20 per Friend instruction potassium chloride 10 MEQ tablet extended release 10 meq PO BID magnesium oxide 400 MG tablet 400 mg PO TID Rx Instructions: takes with meals multivitamin Tablet 1 tab PO DAILY trazodone 100 mg Tablet 100 mg PO QHS pantoprazole 40 mg tablet,delayed release (DR/EC) 40 mg PO BID Label Comments: TAKE 1 TABLET BY MOUTH TWICE DAILY vitamin B complex Capsule 1 cap PO DAILY furosemide [Lasix] 20 mg tablet 20 mg PO DAILY spironolactone 50 mg tablet 50 mg PO BID lactulose 10 gram/15 mL solution 30 g PO DAILY Xifaxan 550 mg tablet 550 mg PO BID meclizine 12.5 mg tablet 12.5 mg PO TID PRN (Reason: dizziness) Qty: 90 2RF promethazine 25 mg tablet 25 mg PO BID PRN (Reason: nausea and vomiting) Qty: 60 0RF midodrine 10 mg tablet 10 mg PO TID Qty: 30 5RF Rx Instructions: do not give last dose of day after 6PM or within 4 hrs of bedtime thiamine HCl (vitamin B1) [Vitamin B-1] 100 mg tablet 100 mg PO DAILY Qty: 30 5RF Referrals / Follow Up: [facility] [Provider Group] - Within 1 Month Alice Cuellar DO [Primary Care Provider] - Within 2 Weeks Disposition Disposition (needs filled in before D/C Order can be placed): Home, Self Care Charges/Coding Visit Charges Inpatient E&M: 42987 Disch Hosp
[2022-03-21 10:07] LABS: Pathologist Review Reviewed
== END 2022-03-19 15:30 | disposition home or self-care (01) | DRG 368 ==
LOC: ED 04:25 → PCU 05:20
PROVIDERS: Internal Medicine; Internal Medicine Gastroenterology; Admitting Provider Student in an Organized Health Care Education/Training Program; Emergency Provider Emergency Medicine; PCP Family Medicine
PROC: 0DJ08ZZ Inspection of Upper Intestinal Tract, Via Natural or Artificial Opening Endoscopic (ICD-10-PCS; CPT 43235; principal; 2022-03-17 11:25)
DX: I85.01 Esophageal varices with bleeding (principal); J69.0 Pneumonitis due to inhalation of food and vomit; K70.30 Alcoholic cirrhosis of liver without ascites; D69.6 Thrombocytopenia, unspecified; F10.20 Alcohol dependence, uncomplicated; I10 Essential (primary) hypertension; F17.200 Nicotine dependence, unspecified, uncomplicated; F12.90 Cannabis use, unspecified, uncomplicated; Z66 Do not resuscitate; R09.02 Hypoxemia; G89.29 Other chronic pain; Y90.1 Blood alcohol level of 20-39 mg/100 ml
CPT/HCPCS: 36415; 71045; 74176; 80048; 80053; 80076; 82077; 82271; 82274; 83690; 85025; 85610; 85730; 93005; 97162; 97166; 99285; 99406; J7030; J7040; J7120; A4216; J0295; J2354; J2405; J3490

== ENCOUNTER 2022-05-06 04:53 | Emergency (ER) | payer MEDICARE, MEDICAID, SELFPAY ==
[2022-05-06 05:00] VITALS: BP 161/86; PULSE 75; RESP 16; TEMP 36; O2SAT 97; BMI 27.8
--- NOTE | 2022-05-06 05:23 | RAD_ITS ---
EXAM: XR ABDOMEN, 2 VIEWS AND XR CHEST, 1 VIEW CLINICAL INDICATION: Pain TECHNIQUE: 4 total views. COMPARISON: CT March 16, 2022, there was 16.4 cm craniocaudal spleen and perisplenic collateral vessels, small liver with nodular contour highly consistent with cirrhosis, cholelithiasis, and prominent collateral vessels in the anterior abdomen and pelvis extending to the right groin. FINDINGS: CHEST: LUNGS AND PLEURAL SPACES: Minimal vascular crowding and increased interstitial markings in the medial right lung base. No confluent alveolar infiltrates or effusions. No pneumothorax. HEART: Unremarkable. Cardiac silhouette not enlarged. MEDIASTINUM: Central airways and mediastinal contour are unremarkable. ABDOMEN: INTRAPERITONEAL SPACE: No free intraperitoneal air on the AP upright exam. No evidence of ascites or suspicious calcifications. GASTROINTESTINAL TRACT: Unremarkable. Non-obstructive. No bowel or stomach distention. ORGANS: Mild gas and stool in the right colon, mild gas in what appears to be sigmoid colon in the right lower quadrant. Minimal gas in descending colon. Possibly splenomegaly, estimated to be at least 16.3 cm craniocaudal. No abnormal calcifications. TUBES, LINES AND DEVICES: None. BONES/JOINTS: Mild lower thoracic spondylosis. SOFT TISSUES: No acute findings. RAD/Acute Abdomen Inc Chest IMPRESSION: 1. Splenomegaly, similar to prior CT. 2. Nonspecific bowel gas pattern, no evidence of bowel obstruction. Electronically Signed: Farheen Moreno MD at 6:57 EST ,
--- NOTE | 2022-05-06 05:25 | EDS_ITS ---
HPI History of Present Illness Chief Complaint: Nausea/Vomiting Informant: patient Narrative Narrative: Presents with nausea and vomiting. He states he had a peanut butter sandwich about 4:00. Within an hour or maybe less he started having some vomiting. No blood or black has been seen. No diarrhea. He does have some epigastric pain. But of note, he has epigastric pain and some nausea and vomiting problems pretty routinely. He states he does not have anything at home for nausea and vomiting at this time. He has been treated with Phenergan, Zofran, and even Reglan in the past but has none of these available. EMS gave him some Zofran. He thinks he might be a little bit better but he is not sure. He states no change in his medicines. He states he is not drinking any alcohol at all anymore. He has not been ill recently. He felt fine until this started. Of note, this patient's chart says he has a AAA. But I have looked into this in the past. It sounds like he was life flighted for repair of a bleeding gastric ulcer. There is been no indication that he ever had an aneurysm or repair of an aneurysm. [facility] Medical History Abnormal EKG Alcohol intoxication in active alcoholic Alcohol use Alcoholic cirrhosis Alcoholism Alcoholism Aortic aneurysm without rupture Arthritis Ascites Benign essential hypertension Biliary colic Bruising Cannabis hyperemesis syndrome concurrent with and due to cannabis abuse Cardiology follow-up encounter Chest pain Chronic abdominal pain Chronic anemia Chronic pain Cirrhosis Diastolic dysfunction Esophageal varices Esophageal varices Esophageal varices in alcoholic cirrhosis Gastric reflux Hematemesis Hepatic encephalopathy History of echocardiogram History of esophageal varices History of GI bleed History of smoking History of stress test Hypokalemia Hypomagnesemia Hypotension Intermittent generalized abdominal pain Low iron Marijuana use Obesity Pancytopenia Peripheral arterial disease Preop cardiovascular exam PVD (peripheral vascular disease) Restless legs Smoker Thrombocytopenia Thrombocytopenia Thrombocytopenia Tobacco use Varices of esophagus determined by endoscopy Walker as ambulation aid Wears glasses Home Medications ferrous sulfate 325 mg (65 mg iron) tablet (iron) 325 mg PO DAILY supplement 03/20/18 [History Last Taken 07/18/21] magnesium oxide 400 mg (241.3 mg magnesium) tablet 400 mg PO TID supplement 03/12/20 [History Last Taken 03/11/20] potassium chloride 10 mEq tablet,extended release 10 meq PO BID supplement 03/12/20 [History Last Taken 03/11/20] tramadol 50 mg tablet 50 mg PO Q6H PRN pain #20 tabs 12/17/20 [Rx Last Taken Unknown] multivitamin 1 tab PO DAILY supplement 12/27/20 [History Last Taken Unknown] meclizine 12.5 mg tablet 12.5 mg PO TID PRN dizziness #90 tabs 01/25/21 [Rx Last Taken Unknown] pantoprazole 40 mg tablet,delayed release 40 mg PO BID gerd 05/22/21 [History Last Taken Unknown] trazodone 100 mg tablet 100 mg PO QHS ANTIDEPRESSANT 07/18/21 [History Last Taken Unknown] promethazine 25 mg tablet 25 mg PO BID PRN nausea and vomiting #60 tabs 11/07/21 [Rx Last Taken Unknown] thiamine HCl (vitamin B1) 100 mg tablet (Vitamin B-1) 100 mg PO DAILY vitamin #30 tabs 02/18/22 [Rx Last Taken Unknown] vitamin B complex 1 cap PO DAILY vitamin 03/07/22 [History Last Taken Unknown] furosemide 20 mg tablet (Lasix) 20 mg PO DAILY WATER PILL 03/16/22 [History Last Taken Unknown] lactulose 10 gram/15 mL oral solution 30 g PO DAILY SEE DOCTOR 03/16/22 [History Last Taken Unknown] spironolactone 50 mg tablet 50 mg PO BID HYPERTENSION 03/16/22 [History Last Taken Unknown] nadolol 20 mg tablet 10 mg PO BID #45 tabs 03/24/22 [Rx Last Taken Unknown] midodrine 10 mg tablet 10 mg PO TID hypotension #270 tabs 04/17/22 [Rx Last Taken Unknown] rifaximin 550 mg tablet (Xifaxan) 550 mg PO BID HEPATIC ENCEPHALOPATHY #180 tabs 04/17/22 [Rx Last Taken Unknown] ondansetron 4 mg disintegrating tablet 4 mg PO Q8H PRN PRN Nausea #10 tabs 05/06/22 [Rx Last Taken Unknown] oxycodone 5 mg tablet 5 mg PO Q8H PRN pain 2 days #6 tabs 05/06/22 [Rx Last Taken Unknown] promethazine 25 mg tablet 25 mg PO Q6H PRN PRN Nausea #10 TABLETS 05/06/22 [Rx Last Taken Unknown] Allergy/AdvReac Type Severity Reaction Status Date / Time No Known Allergies Allergy Verified 05/06/22 05:04 Family History Mother Cancer Father Lupus Surgical History History of abdominal aortic aneurysm repair (~2013) History of esophagogastroduodenoscopy (EGD) History of removal of cyst Social History household members: none Smoking Status: Light Smoker (<10/day) alcohol intake: current alcohol intake frequency: a few times a week substance use type: marijuana caffeine: No ROS ROS ED Constitutional Constitutional ED: Denies chills or fever(s) Eyes Eyes: Denies change in vision ENT ENT ED: Denies rhinorrhea or sore throat Cardiovascular Cardiovascular: Denies chest pain or palpitations Respiratory/Chest Respiratory/Chest: Denies cough or dyspnea Gastrointestinal Gastrointestinal: Reports abdominal pain, nausea and vomiting; Denies constipation, diarrhea or melena Genitourinary Genitourinary ED: Denies hematuria Musculoskeletal Musculoskeletal: Denies back pain Integumentary Denies rash Neurologic Neurologic: Denies headache(s) Endocrine Endocrinology: Denies polydipsia or polyuria Hematologic/Lymphatic Hematologic/Lymphatic: Reports anemia Allergic/Immunologic Allergic/Immunologic ED: Denies urticaria EXAM Physical Exam Narrative Exam Narrative: Patient is awake alert. He actually looks in no acute distress. I have seen him before. He does not look ill today. Other times he has. He looks comfortable. He carries on normal conversation. He does not seem to be intoxicated at all. HEENT: Moist mucous membranes. No sign of trauma. Eyes show no icterus or petechiae. Neck shows no JVD Lungs are clear bilaterally. No pain with a deep breath. Heart is regular. I do not hear a murmur. It sounds regular. Pulses are normal peripherally. Abdomen is soft. He has a well-healed complex surgical incision with cross ties in his upper abdomen. There is really no obvious tenderness. He states it hurts in the epigastric area but pressing really does not seem to bother to any great degree. No right upper quadrant tenderness. shows no suprapubic or CVA tenderness Extremities have chronic venous stasis changes but no edema. Const Vital Signs: 05/06/22 05:00 Temperature 96.8 F L Temperature Source Temporal Pulse Rate 75 Respiratory Rate 16 Blood Pressure 161/86 H Blood Pressure Mean 111 Pulse Ox 97 Oxygen Delivery Method Room Air MDM MDM MDM Narrative Medical decision making narrative: My independent and potation the patient's 4 view abdominal series show some chronic changes in the lung. He has a nonspecific bowel gas pattern. I do not see any sign of ileus or obstruction. No significant constipation. No free air. I do not yet have the final reading. Patient's blood work shows some low white count and low platelets. But these are chronic. His platelets are better now than they normally are. Hemoglobin is good. His electrolytes are overall good. BUN to creatinine ratio so is no sign of dehydration. Glucose is up a bit at 195. Although bilirubin is up at 1.4 this is lower than he normally is. Fact his liver function test look pretty good today. Lipase is negative. Alcohol is negative. Although patient told me he had not drank for a long time. He evidently has been drinking but he stopped about 2 days ago. But there is no sign that he is in withdrawal. He states he is still having some nausea but it is better. He thinks the Zofran worked better than Phenergan. I will give him some Zofran here. I will give him a little bit of meds for pain. I think this patient does have chronic abdominal pain nausea and vomiting. He has had multiple scans. His exam is overall benign. His blood work is better than it normally is. His x-ray shows no acute process. I discussed with him and I do not think we need to do a CT scan again today. He is comfortable with this plan. We will write for meds to go. We discussed returning with worsening pain, vomiting, vomiting blood or blood in the stool, fevers or other concerns. Lab Data Attestation: I reviewed the patient's lab results. Labs: Laboratory Results - last 24 hr 05/06/22 05/06/22 05/06/22 05:30 05:30 05:30 WBC 4.2 L RBC 3.92 L Hgb 13.1 Hct 38.1 L MCV 97.2 H MCH 33.4 H MCHC 34.4 RDW Std Deviation 51.6 H RDW Coeff of Delilah 14.3 Plt Count 50 L* MPV 10.6 Immature Gran % (Auto) 0.200 Neut % (Auto) 70.8 H Lymph % (Auto) 21.6 [place] % (Auto) 7.0 Eos % (Auto) 0.2 Baso % (Auto) 0.2 Absolute Neuts (auto) 3.0 Absolute Lymphs (auto) 0.90 Nucleated RBC % 0 Sodium 139 Potassium 3.9 Chloride 105 Carbon Dioxide 27.0 Anion Gap 7 BUN 9 Creatinine 0.71 Estim Creat Clear Calc 116.37 Est GFR (MDRD) Af Amer 145 Est GFR (MDRD) Non-Af 120 BUN/Creatinine Ratio 12.7 Glucose 195 H Calcium 8.7 Total Bilirubin 1.40 H AST 31 ALT 26 Alkaline Phosphatase 116 Total Protein 6.7 Albumin 3.0 L Globulin 3.7 Albumin/Globulin Ratio 0.8 L Lipase 158 Ethyl Alcohol < 3.0 Discharge Plan Triage Chief Complaint: Nausea/Vomiting ED Provider: Mariano Hollins Dx/Rx/DC Orders Clinical Impression: Nausea & vomiting, Abdominal pain, History of cirrhosis, History of alcoholism Instructions: Abdominal Pain, ED Vomiting (Adult) Prescriptions: New promethazine [promethazine] 25 mg tablet 25 mg PO Q6H PRN PRN (Reason: Nausea) Qty: 10 0RF ondansetron [ondansetron] 4 mg tablet,disintegrating 4 mg PO Q8H PRN PRN (Reason: Nausea) Qty: 10 0RF oxycodone 5 mg tablet 5 mg PO Q8H PRN (Reason: pain) 2 Days Qty: 6 0RF No Action tramadol 50 mg tablet 50 mg PO Q6H PRN (Reason: pain) Qty: 20 0RF nadolol 20 mg tablet 10 mg PO BID Qty: 45 3RF ferrous sulfate [iron] 325 MG tablet 325 mg PO DAILY Label Comments: pt states will stop 12/30/20 per Friend instruction potassium chloride 10 MEQ tablet extended release 10 meq PO BID magnesium oxide 400 MG tablet 400 mg PO TID Rx Instructions: takes with meals multivitamin Tablet 1 tab PO DAILY trazodone 100 mg Tablet 100 mg PO QHS pantoprazole 40 mg tablet,delayed release (DR/EC) 40 mg PO BID Label Comments: TAKE 1 TABLET BY MOUTH TWICE DAILY vitamin B complex Capsule 1 cap PO DAILY furosemide [Lasix] 20 mg tablet 20 mg PO DAILY spironolactone 50 mg tablet 50 mg PO BID lactulose 10 gram/15 mL solution 30 g PO DAILY meclizine 12.5 mg tablet 12.5 mg PO TID PRN (Reason: dizziness) Qty: 90 2RF promethazine 25 mg tablet 25 mg PO BID PRN (Reason: nausea and vomiting) Qty: 60 0RF thiamine HCl (vitamin B1) [Vitamin B-1] 100 mg tablet 100 mg PO DAILY Qty: 30 5RF midodrine 10 mg tablet 10 mg PO TID Qty: 270 3RF Rx Instructions: do not give last dose of day after 6PM or within 4 hrs of bedtime Xifaxan 550 mg tablet 550 mg PO BID Qty: 180 3RF Primary Care Provider: Alice Cuellar Referrals: Alice Cuellar DO [Primary Care Provider] - 3-5 Days Disposition Disposition: Home, Self Care
[2022-05-06 05:39] LABS: Basophil# 0.01 X10^3/uL; Basophil% 0.2 % (0-1); Differential Indicated SCAN CRITERIA MET; Eosinophil# 0.01 X10^3/uL; Eosinophils% 0.2 % (0-5); Hematocrit 38.1 % (40-54); Hemoglobin 13.1 g/dL (13.0-16.5); Lymphocyte % 21.6 % (19-41); Mean Corp Hgb Conc 34.4 g/dL (32-36); Mean Corpuscular Hgb 33.4 pg (27.0-32.0); Mean Corpuscular Volume 97.2 fL (80-94); Mean Platelet Vol. 10.6 fl (6.2-12.0); Monocyte# 0.29 X10^3/uL; NRBC Flagged by Analyzer 0 % (0-5); Neutrophil # 2.95 X10^3/uL (2.7-7.7); Neutrophil % 70.8 % (47-70); POSITIVE COUNT YES; Platelet Count 50 K/mm3 (150-450); RBC Distribution Width CV 14.3 % (11.6-14.6); RBC Distribution Width SD 51.6 fl (35.1-43.9); Red Blood Count 3.92 M/mm3 (4.6-6.2); White Blood Count 4.2 K/mm3 (4.4-11.0)
[2022-05-06 05:53] LABS: Alcohol, Blood (Medical)-Serum < 3.0 mg/dL
[2022-05-06 05:55] LABS: ALB/GLOB Ratio 0.8 RATIO (0.9-2.4); AST(SGOT) 31 U/L (15-37); Alanine Aminotransfer ALT/SGPT 26 U/L (16-61); Alkaline Phosphatase 116 U/L (45-117); Anion Gap 7 (5-15); BUN 9 mg/dL (7-18); BUN/Creat Ratio 12.7 RATIO (10-20); Calcium,Total 8.7 mg/dL (8.5-10.1); Chloride 105 mmol/L (98-107); Creatinine, Serum 0.71 mg/dL (0.70-1.30); EST Glomerular Filtration Rate 120 mL/min (>60); Est Glom Filt Rate - Afr Amer 145 mL/min (>60); Estimated Creatinine Clearance 116.37 ml/min; Globulin 3.7 g/dL (2.2-4.2); Glucose 195 mg/dL (74-106); Lipase 158 U/L (73-393); Potassium 3.9 mmol/L (3.5-5.1); Protein, Total 6.7 g/dL (6.4-8.2); Sodium Level 139 mmol/L (136-145)
[2022-05-06] MEDS: proMETHazine 25 MG/ML Syringe 12.5 MG IM (05:57)
[2022-05-06] MEDS: Ondansetron 4 MG/2 ML Vial IV ×2 (05:57→06:42)
[2022-05-06] MEDS: Morphine 4 MG/ML Syringe IV (06:42)
[2022-05-06 06:47] VITALS: BP 131/51; PULSE 89; RESP 19; O2SAT 96
[2022-05-06 06:51] LABS: Macrocytosis 1+; Platelet Estimate MOD DEC (ADEQ)
[2022-05-06 07:00] VITALS: BP 145/61; PULSE 98; RESP 20; O2SAT 96
[2022-05-06 13:33] LABS: Pathologist Review Reviewed
== END 2022-05-06 07:16 | disposition home or self-care (01) ==
PROVIDERS: Emergency Provider Emergency Medicine; PCP Family Medicine; Visit Provider Emergency Medicine
DX: R11.2 Nausea with vomiting, unspecified (principal); I71.40 Abdominal aortic aneurysm, without rupture, unspecified; I73.9 Peripheral vascular disease, unspecified; I10 Essential (primary) hypertension; F12.90 Cannabis use, unspecified, uncomplicated; F17.210 Nicotine dependence, cigarettes, uncomplicated; R10.9 Unspecified abdominal pain; Z79.899 Other long term (current) drug therapy; D64.9 Anemia, unspecified
CPT/HCPCS: 74022; 80053; 82077; 83690; 85025; 96372; 96374; 96375; 96376; 99283; A4216; J2405

== ENCOUNTER 2022-06-04 06:35 | Day surgery (SDC) | payer MEDICARE, MEDICAID, SELFPAY ==
--- NOTE | 2022-06-04 | EGD_PTH ---
PATIENT: JB ALARCON LOC: EN U#:[id number] AGE/SX: 61/M ROOM: RE06/04/[address]: Dr. Hugo Sheldon DO : 1960 BED: DIS: 06/04/2022 SPEC #: [id number] RECD: 06/04/22 10:33 STATUS: ARMANI REJerilyn #: [id number] ANNE: 06/04/22 00:[address]: Hugo Sheldon DEPT: SURGICAL PATHOLOGY RECD BY: Sal Gallardo ENTERED: 06/04/22 10:34 SP TYPE: EGD BIOPSY OTHR DR: Dr. Alice Cuellar DO Tissues: Duodenum, NOS Procedures: Surgery Specimen Level IV HEADER [place] [facility] [place], biopsy PRE-OP DIAGNOSIS: Cirrhosis, hepatic encephalopathy, esophageal varices TISSUE SUBMITTED: Duodenum biopsy MICROSCOPIC DIAGNOSIS Duodenum, biopsy: Fragments of duodenal mucosa, no pathologic diagnosis. SJ:juliana 06/05/2022 MICROSCOPIC DESCRIPTION Slides are reviewed. GROSS DESCRIPTION Received in fixative is one container labeled with the patient's name and designated duodenum biopsy. The specimen consists of two irregular fragments of light machado soft tissue that in aggregate measure 0.5 x 0.3 x 0.1 cm. The specimen is totally submitted in one cassette. / AM:juliana 06/04/2022 TC:4 CPT: 57467
--- NOTE | 2022-06-04 06:50 | PCM.HP.BLA ---
History and Physical Date of Admission: 06/04/22 61 M who presents to the office today for f/u hospitalization 03/16/22-03/19/22 for hematemesis, esophageal varices, aspiration pneumonia. Reports he is feeling better, has more pep, no further hematemesis. We follow him for alcoholic cirrhosis, hepatic encephalopathy, gastric and esophageal varices, varices throughout the abdomen on CT scan, chronic nausea, chronic abdominal pain, history of marijuana hyperemesis. He had just had an EGD on 03/10/22 to f/u esophageal varices; at that time 2 bands were successfully placed with incomplete eradication of varices. We have referred him to a tertiary center for TIPS but he has repeatedly declined that referral. During the recent hospitalization Dr Sheldon did EGD on 03/16/22, 2 bands were placed with incomplete eradication of Grade II esophageal varices, bleeding stopped; also has Type 2 gastroesophageal varices with stigmata of recent bleeding; treated severe portal hypertensive gastropathy with argon plasma. His MELD was 15 and he is a child Chatterjee class C with mild ascites that does not need paracentesis at this time. Dr Sheldon again recommended referral for TIPS at a tertiary facility. Cirrhosis -- on lactulose, furosemide, spironolactone, rifaximin. Nadolol 10 mg BID was added during 03/2022 hospitalization. He has multiple BMs per day, no diarrhea or constipation. He continues on PPI therapy, heartburn is adequately controlled.?Abd intermittently swollen but not hard. No hx paracentesis other than for testing for SBP. Has bilat LE edema chronically. No pruritus. No jaundice. He continues to use marijuana and drink beer. MELD-Na score in 05/2021 was 11. MELD 12 in 01/2022. MELD 15 in 03/2022. He established with this office in 10/2020 when he was hospitalized with upper GI bleed, Dr Sheldon did banding of esophageal varices then. In 11/2020 he was again hospitalized for the same reason, had banding again. Another EGD with esophageal banding in 12/2020. ROS Const Constitutional: No fatigue ENT ENT: No difficulty swallowing Gastro GI: Positive for abdominal pain, diarrhea, heartburn, Vomiting blood/hematemesis, nausea/dyspepsia and vomiting; No belching, bloating, change in bowel habits, change in stool character, coffee ground emesis, constipation, cramping, difficulty swallowing, feeling full early, excessive flatus, incontinent of stools, Blood in stool, loose stools, Black,tarry stools, pain with swallowing or other Musc Musculoskeletal: Positive for Arthritis and sciatica; No joint pain Skin Skin: No yellowing of the eye or itchy eyes Psych Psychiatric: No anxiety and No depression Endo Endocrine: No fatigue Aller/Imm Allergy/Immunologic: No itchy eyes Seth/Lymp Hematologic/Lymphatic: No easy bleeding or easy bruising Exam Const General: cooperative and no acute distress Nutritional Appearance: overweight Orientation: alert, awake and oriented x3 Eyes Sclera: sclerae normal Resp Effort & Inspection: normal respiratory effort GI Inspection: distended Palpation: soft and nontender Skin General: no jaundice Quality Reporting Tobacco Screening ([facility] 138) Smoking Status: Light Smoker (<10/day) Assessment and Plan Assessment and Plan (1) Cirrhosis: ?Status:?Acute ?Plan: 61 yr old male with alcoholic cirrhosis, recent bleeding esophageal varices. We again discussed that his varices will continue to bleed, in the setting of chronic thrombocytopenia due to cirrhosis. Again recommended TIPS at a tertiary center, [facility] be the closest; he says he will discuss with his (I wrote the info down for him to share with her). Will schedule him for repeat EGD in 3 mos. Continue meds as before with addition of nadolol 10 mg bid. (2) Hepatic encephalopathy: ?Status:?Acute ?Plan: as above (3) Esophageal varices: ?Status:?Acute ?Plan: as above ? ? ? Medications: Refilled nadolol 10 mg (1/2 x 20 mg) PO BID 45 tabs 3RF ? ? I have examined the patient and the H&P has been reviewed. There are no clinical changes since date of exam.
[2022-06-04 06:59] VITALS: BP 115/56; PULSE 67; RESP 16; TEMP 36.3; O2SAT 100
[2022-06-04] MEDS: Lactated Ringers 1,000 ML 15 ML IV (07:02)
[2022-06-04 08:04] VITALS: BP 115/56; BP 130/87; PULSE 75; RESP 20; TEMP 36.1; O2SAT 99
--- NOTE | 2022-06-04 08:04 | OP.EGD_ITS ---
Patient Name: Keyon Dillon Procedure Date: 06/04/2022 7:33 AM Date of : 1960 Age: 61 Procedure: Upper GI endoscopy Indications: For therapy of esophageal varices Providers: Hugo Sheldon DO Medicines: See the Anesthesia note for documentation of the administered medications Patient Profile: This is a 61 year old male. Refer to note in patient chart for documentation of history and physical. Patient has symptoms of chronic nausea and chronic vomiting. He is status post EGD within the past six months. Complications: No immediate complications. Procedure: Pre-Anesthesia Assessment: - Prior to the procedure, a History and Physical was performed, and patient medications and allergies were reviewed. The risks and benefits of the procedure and the sedation options and risks were discussed with the patient. All questions were answered and informed consent was obtained. Patient identification and proposed procedure were verified by the physician. Mental Status Examination: normal. Prophylactic Antibiotics: The patient does not require prophylactic antibiotics. Prior Anticoagulants: The patient has taken no previous anticoagulant or antiplatelet agents. ASA Grade Assessment: III - A patient with severe systemic disease. After reviewing the risks and benefits, the patient was deemed in satisfactory condition to undergo the procedure. The anesthesia plan was to use monitored anesthesia care (MAC). Immediately prior to administration of medications, the patient was re-assessed for adequacy to receive sedatives. The heart rate, respiratory rate, oxygen saturations, blood pressure, adequacy of pulmonary ventilation, and response to care were monitored throughout the procedure. The physical status of the patient was re-assessed after the procedure. After obtaining informed consent, the endoscope was passed under direct vision. Throughout the procedure, the patient's blood pressure, pulse, and oxygen saturations were monitored continuously. The gastroscope was introduced through the mouth, and advanced to the second part of duodenum. The upper GI endoscopy was accomplished without difficulty. The patient tolerated the procedure well. Scope In: 7:46:38 AM Scope Out: 7:56:56 AM Total Procedure Duration Time 0 hours 10 minutes 18 seconds Findings: Grade II varices were found in the middle third of the esophagus and in the lower third of the esophagus. They were 7 mm in largest diameter. Two bands were successfully placed with incomplete eradication of varices. Bleeding had stopped at the end of the procedure. Type 2 gastroesophageal varices (GOV2, esophageal varices which extend along the fundus) with no bleeding were found in the cardia, in the gastric fundus and on the greater curvature of the stomach. There were no stigmata of recent bleeding. They were 9 mm in largest diameter. Patchy mild inflammation characterized by erosions and erythema was found in the duodenal bulb. Biopsies were taken with a cold forceps for histology. Verification of patient identification for the specimen was done. Estimated blood loss was minimal. Severe portal hypertensive gastropathy was found in the entire examined stomach. Impression: - Grade II esophageal varices. Incompletely eradicated. Banded. - Type 2 gastroesophageal varices (GOV2, esophageal varices which extend along the fundus), without bleeding. - Chronic duodenitis. Biopsied. - Portal hypertensive gastropathy. Recommendation: - Discharge patient to home. - Full liquid diet for 5 days. - Continue present medications. - Await pathology results. - TIPS procedure Procedure Code(s): --- Professional --- 53406, Esophagogastroduodenoscopy, flexible, transoral; with band ligation of esophageal/gastric varices 72148, Esophagogastroduodenoscopy, flexible, transoral; with biopsy, single or multiple CPT copyright 2017 [employer]. All rights reserved. The codes documented in this report are preliminary and upon digital marketing lead review may be revised to meet current compliance requirements. Hugo Sheldon DO 06/04/2022 8:04:11 AM This report has been signed electronically. Number of Addenda: 0 Note Initiated On: 06/04/2022 7:33 AM
--- NOTE | 2022-06-04 08:05 | OP.CCLET_ITS ---
06/04/2022 Alice Cuellar [address] [place] [address] Re : Upper GI endoscopy procedure for Keyon Wilma Dear Dr. Cuellar This procedure was performed on Saturday, June 04, 2022. My impressions and recommendations are as follows: Impressions : - Grade II esophageal varices. Incompletely eradicated. Banded. - Type 2 gastroesophageal varices (GOV2, esophageal varices which extend along the fundus), without bleeding. - Chronic duodenitis. Biopsied. - Portal hypertensive gastropathy. Recommendations : - Discharge patient to home. - Full liquid diet for 5 days. - Continue present medications. - Await pathology results. - TIPS procedure My findings are described in the full procedure note, which is enclosed. If I can be of further assistance, please feel free to contact me at . Sincerely, Hugo Sheldon, 06/04/2022 8:04:11 AM This report has been signed electronically.
[2022-06-04 08:08] VITALS: BP 115/56; BP 132/76; PULSE 71; RESP 20; O2SAT 100
[2022-06-04 08:10] VITALS: BP 115/56; BP 136/72; PULSE 72; RESP 18; O2SAT 98
[2022-06-04 08:15] VITALS: BP 115/56; BP 144/77; PULSE 72; RESP 20; O2SAT 100
[2022-06-04 08:24] VITALS: BP 115/56; BP 117/83; PULSE 74; RESP 20; TEMP 36.1; O2SAT 100
== END 2022-06-04 09:21 | disposition home or self-care (01) ==
LOC: EN 06:37 → AC 06:38
PROVIDERS: PCP Family Medicine; Referring Provider Family Medicine; Visit Provider Internal Medicine Gastroenterology
PROC: 0DJ08ZZ Inspection of Upper Intestinal Tract, Via Natural or Artificial Opening Endoscopic (ICD-10-PCS; CPT 43235; principal; 2022-06-04 07:40)
DX: K74.60 Unspecified cirrhosis of liver (principal); K76.6 Portal hypertension; I85.00 Esophageal varices without bleeding; K76.82 Hepatic encephalopathy; K29.80 Duodenitis without bleeding; D69.59 Other secondary thrombocytopenia; F17.200 Nicotine dependence, unspecified, uncomplicated
CPT/HCPCS: 43239; 43244; 88305; J7120; J2405

== ENCOUNTER 2022-09-17 11:00 | Day surgery (SDC) | payer MEDICARE, MEDICAID, SELFPAY ==
--- NOTE | 2022-09-17 11:10 | PCM.HP.BLA ---
History and Physical Date of Admission: 09/17/22 61 M who presents to the office today for discussion of EGD findings. He has alcoholic cirrhosis, hepatic encephalopathy, gastric and esophageal varices, varices throughout the abdomen on CT scan, chronic nausea, chronic abdominal pain, history of marijuana hyperemesis. EGD was indicated for hx of esophageal varices and portal hypertensive gastropathy due to cirrhosis. He has chronic thrombocytopenia due to cirrhosis. His varices and gastropathy are significant. He continues to decline referral for TIPS. He would like to continue his current treatment regimen. He has been having increased nausea, has ondansetron which helps, still gets some vomiting, but no hematemesis since early April. Cirrhosis -- on lactulose, furosemide, spironolactone, midodrine, rifaximin, nadolol, pantoprazole. He has multiple BMs per day, no diarrhea or constipation. He continues on PPI therapy, heartburn is adequately controlled.?Abd intermittently swollen but not hard. No hx paracentesis other than for testing for SBP. Has bilat LE edema chronically. No pruritus. No jaundice. He continues to use marijuana and drink beer daily. MELD-Na score in 05/2021 was 11. MELD 12 in 01/2022. MELD 15 in 03/2022. 06/04/22 EGD Impression: ? - Grade II esophageal varices. Incompletely ? eradicated. Banded. ? - Type 2 gastroesophageal varices (GOV2, ? esophageal varices which extend along the ? fundus), without bleeding. ? - Chronic duodenitis. Biopsied. ? - Portal hypertensive gastropathy. MICROSCOPIC DIAGNOSIS Duodenum, biopsy: Fragments of duodenal mucosa, no pathologic diagnosis ROS Const Constitutional: Positive for fatigue, frequent falls and weight change ENT ENT: No difficulty swallowing Gastro GI: No abdominal pain, belching, bloating, change in bowel habits, change in stool character, coffee ground emesis, constipation, cramping, diarrhea, heartburn, difficulty swallowing, feeling full early, excessive flatus, incontinent of stools, Vomiting blood/hematemesis, Blood in stool, loose stools, Black,tarry stools, nausea/dyspepsia, pain with swallowing, vomiting or other Musc Musculoskeletal: Positive for joint pain, back pain, joint swelling, muscle cramps, Arthritis and leg pain at night Skin Skin: No yellowing of the eye or itchy eyes Neuro Neurology: Positive for frequent falls Psych Psychiatric: No anxiety and No depression Endo Endocrine: Positive for fatigue and weight change Aller/Imm Allergy/Immunologic: No itchy eyes Seth/Lymp Hematologic/Lymphatic: Positive for easy bruising; No easy bleeding Exam Const General: cooperative, no acute distress and ill appearing chronically Orientation: alert, awake and oriented x3 Eyes Sclera: sclerae normal Resp Effort & Inspection: normal respiratory effort GI Inspection: distended Palpation: soft Musc Other: uses a walker Skin General: no jaundice Quality Reporting Tobacco Screening ([facility] 138) Smoking Status: Light Smoker (<10/day) Assessment and Plan Assessment and Plan (1) Cirrhosis: Status: Chronic Plan: We discussed his recent EGD, and again discussed he is at high risk for potentially fatal GI bleed due to varices and thrombocytopenia, he voices understanding Update labs today, will update MELD score Schedule another EGD in 3 mos for banding of varices, w/ office f/u 2 wks later He declines referral still for TIPS Continue same med regimen Orders: Orders Ammonia Today K74.60 - Unspecified cirrhosis of liver CBC W/Diff, Automated Today K74.60 - Unspecified cirrhosis of liver Comprehensive Metabolic Profil Today K74.60 - Unspecified cirrhosis of liver Prothrombin Time w/INR Today K74.60 - Unspecified cirrhosis of liver I have examined the patient and the H&P has been reviewed. There are no clinical changes since date of exam.
[2022-09-17] MEDS: Lactated Ringers 1,000 ML 15 ML IV (11:20)
[2022-09-17 11:22] VITALS: BP 121/53; PULSE 65; RESP 18; TEMP 36.9; O2SAT 100; BMI 29.7
--- NOTE | 2022-09-17 12:00 | EGD_PTH ---
PATIENT: JB ALARCON LOC: EN U#:[id number] AGE/SX: 61/M ROOM: RE09/17/[address]: Dr. Hugo Sheldon DO : 1960 BED: DIS: 09/17/2022 SPEC #: [id number] RECD: 09/17/22 14:27 STATUS: ARMANI REJerilyn #: [id number] ANNE: 09/17/22 12:[address]: Hugo Sheldon DEPT: SURGICAL PATHOLOGY RECD BY: Jennifer Sawant ENTERED: 09/18/22 10:11 SP TYPE: EGD BIOPSY OT DR: Dr. Alice Cuellar DO Tissues: Duodenum, NOS Procedures: Surgery Specimen Level IV HEADER OPERATION: EGD ([facility]) with biopsy PRE-OP DIAGNOSIS: Cirrhosis TISSUE SUBMITTED: Duodenum biopsy MICROSCOPIC DIAGNOSIS Duodenum, biopsy: Fragments of duodenal mucosa, no pathologic diagnosis. SHIRA:juliana 09/19/2022 MICROSCOPIC DESCRIPTION Slides are reviewed. GROSS DESCRIPTION Received in fixative is one container labeled with the patient's name and designated duodenum biopsy. The specimen consists of multiple irregular fragments of light machado soft tissue that in aggregate measure 0.8 x 0.2 x 0.1 cm. The specimen is totally submitted in one cassette. / SJ:rg 09/18/2022 TC:4 CPT: 71576
--- NOTE | 2022-09-17 12:19 | OP.EGD_ITS ---
Patient Name: Keyon Dillon Procedure Date: 09/17/2022 11:54 AM Date of : 1960 Age: 61 Procedure: Upper GI endoscopy Indications: For therapy of esophageal varices, Follow-up of gastric varices Providers: Hugo Sheldon DO Medicines: Monitored Anesthesia Care Patient Profile: This is a 61 year old male. Refer to note in patient chart for documentation of history and physical. Patient has symptoms of chronic dyspepsia. He is status post EGD for treatment of bleeding within the past six months. Complications: No immediate complications. Procedure: Pre-Anesthesia Assessment: - Prior to the procedure, a History and Physical was performed, and patient medications and allergies were reviewed. The risks and benefits of the procedure and the sedation options and risks were discussed with the patient. All questions were answered and informed consent was obtained. Patient identification and proposed procedure were verified by the physician. Mental Status Examination: normal. Prophylactic Antibiotics: The patient does not require prophylactic antibiotics. Prior Anticoagulants: The patient has taken no previous anticoagulant or antiplatelet agents. After reviewing the risks and benefits, the patient was deemed in satisfactory condition to undergo the procedure. The anesthesia plan was to use monitored anesthesia care (MAC). Immediately prior to administration of medications, the patient was re-assessed for adequacy to receive sedatives. The heart rate, respiratory rate, oxygen saturations, blood pressure, adequacy of pulmonary ventilation, and response to care were monitored throughout the procedure. The physical status of the patient was re-assessed after the procedure. After obtaining informed consent, the endoscope was passed under direct vision. Throughout the procedure, the patient's blood pressure, pulse, and oxygen saturations were monitored continuously. The Endoscope was introduced through the mouth, and advanced to the second part of duodenum. The upper GI endoscopy was accomplished without difficulty. The patient tolerated the procedure well. Scope In: 12:09:43 PM Scope Out: 12:12:31 PM Total Procedure Duration Time 0 hours 2 minutes 48 seconds Findings: Small (< 5 mm) varices were found in the lower third of the esophagus. They were 2 mm in largest diameter. Type 2 gastroesophageal varices (GOV2, esophageal varices which extend along the fundus) with no bleeding were found in the cardia and in the gastric fundus. They were 7 mm in largest diameter. Severe portal hypertensive gastropathy was found in the entire examined stomach. Patchy mildly erythematous mucosa without active bleeding and with no stigmata of bleeding was found in the duodenal bulb. Biopsies were taken with a cold forceps for histology. Verification of patient identification for the specimen was done. Estimated blood loss was minimal. Impression: - Small (< 5 mm) esophageal varices. - Type 2 gastroesophageal varices (GOV2, esophageal varices which extend along the fundus), without bleeding. - Portal hypertensive gastropathy. - Erythematous duodenopathy. Biopsied. Recommendation: - Discharge patient to home. - Resume previous diet. - Continue present medications. - Await pathology results. Procedure Code(s): --- Professional --- 71396, Esophagogastroduodenoscopy, flexible, transoral; with biopsy, single or multiple CPT copyright 2017 [employer]. All rights reserved. The codes documented in this report are preliminary and upon remote medical coder review may be revised to meet current compliance requirements. Hugo Sheldon DO 09/17/2022 12:19:05 PM This report has been signed electronically. Number of Addenda: 0 Note Initiated On: 09/17/2022 11:54 AM
[2022-09-17 12:20] VITALS: BP 103/53; BP 121/53; PULSE 70; RESP 16; TEMP 36.6; O2SAT 93
--- NOTE | 2022-09-17 12:20 | OP.CCLET_ITS ---
09/17/2022 Alice Cuellar [address] [facility] [place] [address] Re : Upper GI endoscopy procedure for Keyon Yund Dear Dr. Cuellar This procedure was performed on Saturday, September 17, 2022. My impressions and recommendations are as follows: Impressions : - Small (< 5 mm) esophageal varices. - Type 2 gastroesophageal varices (GOV2, esophageal varices which extend along the fundus), without bleeding. - Portal hypertensive gastropathy. - Erythematous duodenopathy. Biopsied. Recommendations : - Discharge patient to home. - Resume previous diet. - Continue present medications. - Await pathology results. My findings are described in the full procedure note, which is enclosed. If I can be of further assistance, please feel free to contact me at . Sincerely, Hugo Sheldon, 09/17/2022 12:19:05 PM This report has been signed electronically.
[2022-09-17 12:25] VITALS: BP 106/54; BP 121/53; PULSE 66; RESP 16; O2SAT 96
[2022-09-17 12:30] VITALS: BP 110/57; BP 121/53; PULSE 66; RESP 16; O2SAT 97
[2022-09-17 12:35] VITALS: BP 116/58; BP 121/53; PULSE 62; RESP 16; TEMP 36.1; O2SAT 100
[2022-09-17 12:49] VITALS: BP 121/53
== END 2022-09-17 13:00 | disposition home or self-care (01) ==
LOC: EN 11:01 → AC 11:02
PROVIDERS: PCP Family Medicine; Referring Provider Internal Medicine Gastroenterology; Visit Provider Internal Medicine Gastroenterology
PROC: 0DJ08ZZ Inspection of Upper Intestinal Tract, Via Natural or Artificial Opening Endoscopic (ICD-10-PCS; CPT 43235; principal; 2022-09-17 11:55)
DX: I85.00 Esophageal varices without bleeding (principal); K76.6 Portal hypertension; K74.60 Unspecified cirrhosis of liver; F17.200 Nicotine dependence, unspecified, uncomplicated
CPT/HCPCS: 43239; 88305; J7120; J2405

== ENCOUNTER 2022-10-08 19:07 | Emergency (ER) | payer MEDICARE, MEDICAID, SELFPAY ==
[2022-10-08 19:08] VITALS: BP 140/74; PULSE 100; RESP 18; TEMP 36.4; O2SAT 98; BMI 30.1
--- NOTE | 2022-10-08 20:55 | CT_ITS ---
EXAM: CT Abdomen And Pelvis W/ Contrast Injection HISTORY: abdominal paiin TECHNIQUE: Routine protocol CT abdomen pelvis. IV Contrast: IV 100mL Isovue-370 . Oral Contrast: without. Sagittal and coronal images were reconstructed. RADIATION DOSAGE (If Supplied By Facility): CTDIvol = ( 14.93 ) mGy, DLP = ( 1364.96 ) mGycm Individualized dose optimization techniques were used for this CT. COMPARISON: CT abdomen and pelvis 03/16/2022. LIMITATIONS: None. FINDINGS: LOWER CHEST: Dependent atelectasis in the lung bases. Coronary artery calcifications. LIVER: Heterogeneous. Nodular contour. Recanalized umbilical vein. Enlarged portal vein. GALLBLADDER/BILE DUCTS: Gallstones in the gallbladder. PANCREAS: Unremarkable. SPLEEN: Enlarged. ADRENAL GLANDS: Unremarkable. KIDNEYS / URETERS: Unremarkable. BOWEL / MESENTERY: Diffuse gastric wall thickening/fold thickening appears increased compared to prior, not well distended. Fluid distended nondilated small bowel in the mid to lower abdomen. No bowel obstruction. APPENDIX: Identified and normal. No evidence of acute appendicitis. PERITONEUM: No free air. No free fluid. VESSELS: Abdominal aorta is normal caliber. Varices abdomen and pelvis. RETROPERITONEUM: Unremarkable. REPRODUCTIVE ORGANS: Unremarkable. BLADDER: Unremarkable. ABDOMINAL WALL: Unremarkable. BONES: L3 vertebral body with a large lytic lesion on the right and compression of the superior endplate, approximately 50% vertebral body height loss is new compared to the prior study. No other definite lytic lesions identified.. OTHER: None. CT/Abdomen/Pelvis W IV Cont ONLY IMPRESSION: 1. Findings consistent with hepatic cirrhosis and portal hypertension overall stable compared to prior. Splenomegaly. 2. Diffuse gastric wall thickening suspected gastritis or other process including malignancy, versus suboptimal distention. 3. Cholelithiasis. 4. Fluid distended small bowel ileus or enteritis. 5. New lytic lesion at L3 vertebral body with compression fracture, potentially acute Schmorl''s node, but metastatic disease or other process not excluded.. Electronically Signed: Mindy Gupta MD at 23:04 EDT ,
--- NOTE | 2022-10-08 20:57 | ED.VIS.GI ---
HPI HPI - GI History of Present Illness Chief Complaint: Nausea/Vomiting [facility] Medical History Abnormal EKG Alcohol intoxication in active alcoholic Alcohol use Alcoholic cirrhosis Alcoholism Alcoholism Aortic aneurysm without rupture Arthritis Ascites Benign essential hypertension Biliary colic Blackout Bruising Cannabis hyperemesis syndrome concurrent with and due to cannabis abuse Cardiology follow-up encounter Chest pain Chronic abdominal pain Chronic anemia Chronic cough Chronic pain Cirrhosis Diastolic dysfunction Easy bruising Esophageal varices Esophageal varices Esophageal varices in alcoholic cirrhosis Gastric reflux Hematemesis Hepatic encephalopathy History of echocardiogram History of edema History of esophageal varices History of GI bleed History of smoking History of stress test Hypokalemia Hypomagnesemia Hypotension Injury of head and neck Intermittent generalized abdominal pain Leg cramps Low iron Marijuana use Obesity Pancytopenia Peripheral arterial disease Preop cardiovascular exam PVD (peripheral vascular disease) PVD (peripheral vascular disease) Restless legs Shortness of breath on exertion Smoker Thrombocytopenia Thrombocytopenia Thrombocytopenia Tobacco use Varices of esophagus determined by endoscopy Walker as ambulation aid Wears glasses Home Medications magnesium oxide 400 mg (241.3 mg magnesium) tablet 400 mg PO TID supplement 03/12/20 [History Last Taken 03/11/20] potassium chloride 10 mEq tablet,extended release 10 meq PO BID supplement 03/12/20 [History Last Taken 03/11/20] tramadol 50 mg tablet 50 mg PO Q6H PRN pain #20 tabs 12/17/20 [Rx Last Taken 09/17/22] multivitamin 1 tab PO DAILY supplement 12/27/20 [History Last Taken Unknown] pantoprazole 40 mg tablet,delayed release 40 mg PO BID gerd 05/22/21 [History Last Taken Unknown] trazodone 100 mg tablet 100 mg PO QHS ANTIDEPRESSANT 07/18/21 [History Last Taken Unknown] thiamine HCl (vitamin B1) 100 mg tablet (Vitamin B-1) 100 mg PO DAILY vitamin #30 tabs 02/18/22 [Rx Last Taken Unknown] vitamin B complex 1 cap PO DAILY vitamin 03/07/22 [History Last Taken Unknown] furosemide 20 mg tablet (Lasix) 20 mg PO DAILY WATER PILL 03/16/22 [History Last Taken Unknown] lactulose 10 gram/15 mL oral solution 30 g PO DAILY SEE DOCTOR 03/16/22 [History Last Taken Unknown] spironolactone 50 mg tablet 50 mg PO BID HYPERTENSION 03/16/22 [History Last Taken 09/17/22] midodrine 10 mg tablet 10 mg PO TID hypotension #270 tabs 04/17/22 [Rx Last Taken Unknown] rifaximin 550 mg tablet (Xifaxan) 550 mg PO BID HEPATIC ENCEPHALOPATHY #180 tabs 04/17/22 [Rx Last Taken Unknown] ondansetron 4 mg disintegrating tablet 4 mg PO Q8H PRN PRN Nausea #60 tabs 06/04/22 [Rx Last Taken 10/08/22 19:27] nadolol 20 mg tablet 10 mg (1/2 x 20 mg) PO BID #45 tabs 07/03/22 [Rx Last Taken Unknown] promethazine 25 mg tablet 25 mg PO Q6H PRN PRN Nausea #30 TABLETS 09/12/22 [Rx Last Taken Unknown] meclizine 12.5 mg tablet 12.5 mg PO TID PRN dizziness #90 tabs 10/07/22 [Rx Last Taken Unknown] promethazine 25 mg rectal suppository (Promethegan) 25 mg WA Q6H PRN PRN Nausea 3 days #12 ea 10/08/22 [Rx Last Taken Unknown] promethazine 25 mg tablet 25 mg PO TID #30 tabs 10/08/22 [Rx Last Taken Unknown] Allergy/AdvReac Type Severity Reaction Status Date / Time No Known Allergies Allergy Verified 10/08/22 19:10 Family History Mother Cancer Father Lupus Surgical History History of abdominal aortic aneurysm repair (~2013) History of esophagogastroduodenoscopy (EGD) History of removal of cyst Social History household members: none Smoking Status: Light Smoker (<10/day) alcohol intake: current alcohol intake frequency: a few times a week substance use type: marijuana caffeine: No ROS ROS ED Constitutional Constitutional ED: Denies chills or fever(s) ENT ENT ED: Denies rhinorrhea or sore throat Cardiovascular Cardiovascular: Denies chest pain or palpitations Respiratory/Chest Respiratory/Chest: Denies cough or dyspnea Gastrointestinal Gastrointestinal: Reports abdominal pain, nausea and vomiting Genitourinary Genitourinary ED: Denies dysuria or hematuria Musculoskeletal Musculoskeletal: Denies arthralgias or myalgias Integumentary Denies abscess Neurologic Neurologic: Denies headache(s) or paresthesias Psychiatric Psychiatric: Denies anxiety or depression EXAM Physical Exam Const Vital Signs: 10/08/22 19:08 10/08/22 21:08 10/08/22 23:44 Temperature 97.6 F L Temperature Source Temporal Pulse Rate 100 86 Respiratory Rate 18 16 18 Blood Pressure 140/74 H 151/62 H Blood Pressure Mean 96 91 Pulse Ox 98 98 Oxygen Delivery Method Room Air Room Air Positive well nourished General Appearance ED: NAD HEENT Reports moist mucous membranes normocephalic and atraumatic Eyes PERRL and EOMs intact bilaterally General Eye ED: Yes pale conjunctiva Resp normal respiratory effort and clear to auscultation bilaterally Auscultation: Negative for rales, rhonchi or wheezes Cardio regular rate and regular rhythm GI Palpation: tender epigastric and periumbilical Extremity full ROM Neuro CN's II-XII intact bilaterally, moves all extremities and no sensory deficits noted Motor Exam: strength 5/5 throughout Psych mental status grossly normal and thought process normal MDM MDM Lab Data Labs: Laboratory Results - last 24 hr 10/08/22 21:10 WBC 4.9 RBC 4.15 L Hgb 13.7 Hct 40.5 MCV 97.6 H MCH 33.0 H MCHC 33.8 RDW Std Deviation 56.1 H RDW Coeff of Delilah 15.9 H Plt Count 61 L MPV 10.6 Immature Gran % (Auto) 0.200 Neut % (Auto) 57.0 Lymph % (Auto) 30.4 [place] % (Auto) 11.8 H Eos % (Auto) 0.4 Baso % (Auto) 0.2 Absolute Neuts (auto) 2.8 Absolute Lymphs (auto) 1.50 Nucleated RBC % 0 Sodium 138 Potassium 4.2 Chloride 106 Carbon Dioxide 28.0 Anion Gap 4 L BUN 4 L Creatinine 0.65 L Estim Creat Clear Calc 127.11 Est GFR (MDRD) Af Amer 160 Est GFR (MDRD) Non-Af 132 BUN/Creatinine Ratio 6.2 L Glucose 119 H Calcium 8.4 L Total Bilirubin 1.90 H AST 36 ALT 25 Alkaline Phosphatase 113 Ammonia 24.0 Total Protein 6.3 L Albumin 3.0 L Globulin 3.3 Albumin/Globulin Ratio 0.9 Lipase 68 Radiography Diagnostic Testing: Clinical Impression(s) from Imaging Studies Abdomen/Pelvis CT 10/08/22 20:55 IMPRESSION: 1. Findings consistent with hepatic cirrhosis and portal hypertension overall stable compared to prior. Splenomegaly. 2. Diffuse gastric wall thickening suspected gastritis or other process including malignancy, versus suboptimal distention. 3. Cholelithiasis. 4. Fluid distended small bowel ileus or enteritis. 5. New lytic lesion at L3 vertebral body with compression fracture, potentially acute Schmorl''s node, but metastatic disease or other process not excluded.. Electronically Signed: Mindy Gupta MD at 23:04 EDT , Discharge Plan Triage Chief Complaint: Nausea/Vomiting ED Provider: Orlando Adames Dx/Rx/DC Orders Instructions: ED Vomiting (Adult), ED Abdominal Pain Unkn Cause Male... Prescriptions: New promethazine 25 mg tablet 25 mg PO TID Qty: 30 0RF promethazine [Promethegan] 25 mg suppository 25 mg WA Q6H PRN PRN (Reason: Nausea) 3 Days Qty: 12 0RF No Action tramadol 50 mg tablet 50 mg PO Q6H PRN (Reason: pain) Qty: 20 0RF potassium chloride 10 MEQ tablet extended release 10 meq PO BID magnesium oxide 400 MG tablet 400 mg PO TID Rx Instructions: takes with meals multivitamin Tablet 1 tab PO DAILY trazodone 100 mg Tablet 100 mg PO QHS pantoprazole 40 mg tablet,delayed release (DR/EC) 40 mg PO BID Patient Comments: TAKE 1 TABLET BY MOUTH TWICE DAILY vitamin B complex Capsule 1 cap PO DAILY furosemide [Lasix] 20 mg tablet 20 mg PO DAILY spironolactone 50 mg tablet 50 mg PO BID lactulose 10 gram/15 mL solution 30 g PO DAILY thiamine HCl (vitamin B1) [Vitamin B-1] 100 mg tablet 100 mg PO DAILY Qty: 30 5RF midodrine 10 mg tablet 10 mg PO TID Qty: 270 3RF Rx Instructions: do not give last dose of day after 6PM or within 4 hrs of bedtime Xifaxan 550 mg tablet 550 mg PO BID Qty: 180 3RF ondansetron 4 mg tablet,disintegrating 4 mg PO Q8H PRN PRN (Reason: Nausea) Qty: 60 3RF nadolol 20 mg tablet 10 mg PO BID Qty: 45 3RF promethazine 25 mg tablet 25 mg PO Q6H PRN PRN (Reason: Nausea) Qty: 30 3RF meclizine 12.5 mg tablet 12.5 mg PO TID PRN (Reason: dizziness) Qty: 90 11RF Other Ambulatory Orders: Fast Pass: Oncology Referral [facility] (Routine) Facility: [facility] - Location: [facility] Ordered By: Dr. Orlando Adames Primary Care Provider: Alice Cuellar Referrals: Alice Cuellar DO [Primary Care Provider] - Disposition Disposition: Home, Self Care Discharge Date/Time: 10/08/22 23:44
[2022-10-08 21:08] VITALS: BP 151/62; PULSE 86; RESP 16; O2SAT 98
[2022-10-08] MEDS: Morphine 4 MG/ML Syringe IV (21:15)
[2022-10-08] MEDS: Metoclopramide 10 MG/2 ML Vial IV (21:15)
[2022-10-08] MEDS: 0.9% Normal Saline 1,000 ML 1000 ML IV (21:15)
[2022-10-08 21:31] LABS: Absolute Neutrophil Count 2.8 X10^3/uL (2.0-7.7); Basophil# 0.01 X10^3/uL; Basophil% 0.2 % (0-1); Eosinophil# 0.02 X10^3/uL; Eosinophils% 0.4 % (0-5); Hematocrit 40.5 % (40-54); Hemoglobin 13.7 g/dL (13.0-16.5); Lymphocyte % 30.4 % (19-41); Mean Corp Hgb Conc 33.8 g/dL (32-36); Mean Corpuscular Volume 97.6 fL (80-94); Mean Platelet Vol. 10.6 fl (6.2-12.0); Monocyte# 0.58 X10^3/uL; Monocyte% 11.8 % (0-10); NRBC Flagged by Analyzer 0 % (0-5); Neutrophil # 2.81 X10^3/uL (2.7-7.7); POSITIVE COUNT YES; Platelet Count 61 K/mm3 (150-450); RBC Distribution Width CV 15.9 % (11.6-14.6); RBC Distribution Width SD 56.1 fl (35.1-43.9); Red Blood Count 4.15 M/mm3 (4.6-6.2); White Blood Count 4.9 K/mm3 (4.4-11.0)
[2022-10-08 21:44] LABS: ALB/GLOB Ratio 0.9 RATIO (0.9-2.4); AST(SGOT) 36 U/L (15-37); Alanine Aminotransfer ALT/SGPT 25 U/L (16-61); Alkaline Phosphatase 113 U/L (45-117); Anion Gap 4 (5-15); BUN 4 mg/dL (7-18); BUN/Creat Ratio 6.2 RATIO (10-20); Calcium,Total 8.4 mg/dL (8.5-10.1); Chloride 106 mmol/L (98-107); Creatinine, Serum 0.65 mg/dL (0.70-1.30); EST Glomerular Filtration Rate 132 mL/min (>60); Est Glom Filt Rate - Afr Amer 160 mL/min (>60); Estimated Creatinine Clearance 127.11 ml/min; Globulin 3.3 g/dL (2.2-4.2); Glucose 119 mg/dL (74-106); Lipase 68 U/L (13-75); Potassium 4.2 mmol/L (3.5-5.1); Protein, Total 6.3 g/dL (6.4-8.2); Sodium Level 138 mmol/L (136-145)
[2022-10-08 23:44] VITALS: RESP 18
--- NOTE | 2022-10-09 00:32 | EDS_ITS ---
HPI History of Present Illness Chief Complaint: Nausea/Vomiting [facility] Medical History Abnormal EKG Alcohol intoxication in active alcoholic Alcohol use Alcoholic cirrhosis Alcoholism Alcoholism Aortic aneurysm without rupture Arthritis Ascites Benign essential hypertension Biliary colic Blackout Bruising Cannabis hyperemesis syndrome concurrent with and due to cannabis abuse Cardiology follow-up encounter Chest pain Chronic abdominal pain Chronic anemia Chronic cough Chronic pain Cirrhosis Diastolic dysfunction Easy bruising Esophageal varices Esophageal varices Esophageal varices in alcoholic cirrhosis Gastric reflux Hematemesis Hepatic encephalopathy History of echocardiogram History of edema History of esophageal varices History of GI bleed History of smoking History of stress test Hypokalemia Hypomagnesemia Hypotension Injury of head and neck Intermittent generalized abdominal pain Leg cramps Low iron Marijuana use Obesity Pancytopenia Peripheral arterial disease Preop cardiovascular exam PVD (peripheral vascular disease) PVD (peripheral vascular disease) Restless legs Shortness of breath on exertion Smoker Thrombocytopenia Thrombocytopenia Thrombocytopenia Tobacco use Varices of esophagus determined by endoscopy Walker as ambulation aid Wears glasses Home Medications magnesium oxide 400 mg (241.3 mg magnesium) tablet 400 mg PO TID supplement 03/02 03/22 [History Last Taken 03/11/20] potassium chloride 10 mEq tablet,extended release 10 meq PO BID supplement 03/12/20 [History Last Taken 03/11/20] tramadol 50 mg tablet 50 mg PO Q6H PRN pain #20 tabs 12/17/20 [Rx Last Taken 09/17/22] multivitamin 1 tab PO DAILY supplement 12/27/20 [History Last Taken Unknown] pantoprazole 40 mg tablet,delayed release 40 mg PO BID gerd 05/22/21 [History Last Taken Unknown] trazodone 100 mg tablet 100 mg PO QHS ANTIDEPRESSANT 07/18/21 [History Last Taken Unknown] thiamine HCl (vitamin B1) 100 mg tablet (Vitamin B-1) 100 mg PO DAILY vitamin #30 tabs 02/18/22 [Rx Last Taken Unknown] vitamin B complex 1 cap PO DAILY vitamin 03/07/22 [History Last Taken Unknown] furosemide 20 mg tablet (Lasix) 20 mg PO DAILY WATER PILL 03/16/22 [History Last Taken Unknown] lactulose 10 gram/15 mL oral solution 30 g PO DAILY SEE DOCTOR 03/16/22 [History Last Taken Unknown] spironolactone 50 mg tablet 50 mg PO BID HYPERTENSION 03/16/22 [History Last Taken 09/17/22] midodrine 10 mg tablet 10 mg PO TID hypotension #270 tabs 04/17/22 [Rx Last Taken Unknown] rifaximin 550 mg tablet (Xifaxan) 550 mg PO BID HEPATIC ENCEPHALOPATHY #180 tabs 04/17/22 [Rx Last Taken Unknown] ondansetron 4 mg disintegrating tablet 4 mg PO Q8H PRN PRN Nausea #60 tabs 06/04/22 [Rx Last Taken 10/08/22 19:27] nadolol 20 mg tablet 10 mg (1/2 x 20 mg) PO BID #45 tabs 07/03/22 [Rx Last Taken Unknown] promethazine 25 mg tablet 25 mg PO Q6H PRN PRN Nausea #30 TABLETS 09/12/22 [Rx Last Taken Unknown] meclizine 12.5 mg tablet 12.5 mg PO TID PRN dizziness #90 tabs 10/07/22 [Rx Last Taken Unknown] promethazine 25 mg rectal suppository (Promethegan) 25 mg CO Q6H PRN PRN Nausea 3 days #12 ea 10/08/22 [Rx Last Taken Unknown] promethazine 25 mg tablet 25 mg PO TID #30 tabs 10/08/22 [Rx Last Taken Unknown] Allergy/AdvReac Type Severity Reaction Status Date / Time No Known Allergies Allergy Verified 10/08/22 19:10 Family History Mother Cancer Father Lupus Surgical History History of abdominal aortic aneurysm repair (~2013) History of esophagogastroduodenoscopy (EGD) History of removal of cyst Social History household members: none Smoking Status: Light Smoker (<10/day) alcohol intake: current alcohol intake frequency: a few times a week substance use type: marijuana caffeine: No EXAM Physical Exam Const Vital Signs: 10/08/22 19:08 10/08/22 21:08 10/08/22 23:44 Temperature 97.6 F L Temperature Source Temporal Pulse Rate 100 86 Respiratory Rate 18 16 18 Blood Pressure 140/74 H 151/62 H Blood Pressure Mean 96 91 Pulse Ox 98 98 Oxygen Delivery Method Room Air Room Air MDM MDM MDM Narrative Medical decision making narrative: Patient presenting with acute exacerbation of chronic abdominal pain. He is medicated with morphine and Zofran. Differential includes colitis, diverticulitis, pancreatitis, gastritis, dehydration, electrolyte normalities, cyclic vomiting. CBC was obtained to assess white blood cell count, hemoglobin, platelets, CMP to assess renal function, liver function, electrolytes. Lipase to assess for pancreatitis. CBC showed no leukocytosis. Hemoglobin stable at 13.7. Platelets are low at 61 however this is not new for the patient. Patient's bilirubin is 1.9 just a little higher than previous. His other LFTs are unremarkable. Lipase was negative. Obtained a CT of the abdomen pelvis with IV contrast which showed some cholelithiasis although the patient does have a iwona Beatty sign. It does show cirrhosis and portal hypertension but this is all stable. There is evidence of enteritis. There is also evidence of a new lytic lesion at L3 that could be a Schmorl's node but cannot rule out malignancy. Not having any back pain at this time. I will use the [facility] fast pass to get him evaluated on outpatient basis. He was given a prescription for Phenergan for home because he states the Zofran was not helping. Impression: 1. Abdominal pain 2. L3 lytic lesion 3. Nausea/vomiting 4. thrombocytopenia Lab Data Labs: Laboratory Results - last 24 hr 10/08/22 21:10 WBC 4.9 RBC 4.15 L Hgb 13.7 Hct 40.5 MCV 97.6 H MCH 33.0 H MCHC 33.8 RDW Std Deviation 56.1 H RDW Coeff of Delilah 15.9 H Plt Count 61 L MPV 10.6 Immature Gran % (Auto) 0.200 Neut % (Auto) 57.0 Lymph % (Auto) 30.4 Schleicher % (Auto) 11.8 H Eos % (Auto) 0.4 Baso % (Auto) 0.2 Absolute Neuts (auto) 2.8 Absolute Lymphs (auto) 1.50 Nucleated RBC % 0 Sodium 138 Potassium 4.2 Chloride 106 Carbon Dioxide 28.0 Anion Gap 4 L BUN 4 L Creatinine 0.65 L Estim Creat Clear Calc 127.11 Est GFR (MDRD) Af Amer 160 Est GFR (MDRD) Non-Af 132 BUN/Creatinine Ratio 6.2 L Glucose 119 H Calcium 8.4 L Total Bilirubin 1.90 H AST 36 ALT 25 Alkaline Phosphatase 113 Ammonia 24.0 Total Protein 6.3 L Albumin 3.0 L Globulin 3.3 Albumin/Globulin Ratio 0.9 Lipase 68 Radiography Diagnostic Testing: Clinical Impression(s) from Imaging Studies Abdomen/Pelvis CT 10/08/22 20:55 IMPRESSION: 1. Findings consistent with hepatic cirrhosis and portal hypertension overall stable compared to prior. Splenomegaly. 2. Diffuse gastric wall thickening suspected gastritis or other process including malignancy, versus suboptimal distention. 3. Cholelithiasis. 4. Fluid distended small bowel ileus or enteritis. 5. New lytic lesion at L3 vertebral body with compression fracture, potentially acute Schmorl''s node, but metastatic disease or other process not excluded.. Electronically Signed: Mindy Gupta MD at 23:04 EDT Reading Location ID and State: [facility] / [place] Tel , Service support , Discharge Plan Triage Chief Complaint: Nausea/Vomiting ED Provider: Orlando Adames Dx/Rx/DC Orders Instructions: ED Vomiting (Adult), ED Abdominal Pain Unkn Cause Male... Prescriptions: New promethazine 25 mg tablet 25 mg PO TID Qty: 30 0RF promethazine [Promethegan] 25 mg suppository 25 mg CO Q6H PRN PRN (Reason: Nausea) 3 Days Qty: 12 0RF No Action tramadol 50 mg tablet 50 mg PO Q6H PRN (Reason: pain) Qty: 20 0RF potassium chloride 10 MEQ tablet extended release 10 meq PO BID magnesium oxide 400 MG tablet 400 mg PO TID Rx Instructions: takes with meals multivitamin Tablet 1 tab PO DAILY trazodone 100 mg Tablet 100 mg PO QHS pantoprazole 40 mg tablet,delayed release (DR/EC) 40 mg PO BID Patient Comments: TAKE 1 TABLET BY MOUTH TWICE DAILY vitamin B complex Capsule 1 cap PO DAILY furosemide [Lasix] 20 mg tablet 20 mg PO DAILY spironolactone 50 mg tablet 50 mg PO BID lactulose 10 gram/15 mL solution 30 g PO DAILY thiamine HCl (vitamin B1) [Vitamin B-1] 100 mg tablet 100 mg PO DAILY Qty: 30 5RF midodrine 10 mg tablet 10 mg PO TID Qty: 270 3RF Rx Instructions: do not give last dose of day after 6PM or within 4 hrs of bedtime Xifaxan 550 mg tablet 550 mg PO BID Qty: 180 3RF ondansetron 4 mg tablet,disintegrating 4 mg PO Q8H PRN PRN (Reason: Nausea) Qty: 60 3RF nadolol 20 mg tablet 10 mg PO BID Qty: 45 3RF promethazine 25 mg tablet 25 mg PO Q6H PRN PRN (Reason: Nausea) Qty: 30 3RF meclizine 12.5 mg tablet 12.5 mg PO TID PRN (Reason: dizziness) Qty: 90 11RF Other Ambulatory Orders: Fast Pass: Oncology Referral [facility] (Routine) Facility: [facility] - Location: [facility] Ordered By: Dr. Orlando Adames Primary Care Provider: Alice Cuellar Referrals: Alice Cuellar DO [Primary Care Provider] - Disposition Disposition: Home, Self Care Discharge Date/Time: 10/08/22 23:44
== END 2022-10-08 23:44 | disposition home or self-care (01) ==
PROVIDERS: Emergency Provider Student in an Organized Health Care Education/Training Program; PCP Family Medicine; Visit Provider Student in an Organized Health Care Education/Training Program
DX: R10.9 Unspecified abdominal pain (principal); K76.6 Portal hypertension; K74.69 Other cirrhosis of liver; D69.6 Thrombocytopenia, unspecified; K52.9 Noninfective gastroenteritis and colitis, unspecified; K80.20 Calculus of gallbladder without cholecystitis without obstruction; M89.8X9 Other specified disorders of bone, unspecified site; F12.90 Cannabis use, unspecified, uncomplicated; R11.2 Nausea with vomiting, unspecified; G89.29 Other chronic pain
CPT/HCPCS: 74177; 80053; 82140; 83690; 85025; 99283; J7030; Q9967; A4216

== ENCOUNTER → 2022-10-23 | Outpatient (CLI) | payer MEDICARE, MEDICAID, SELFPAY ==
--- NOTE | 2022-10-23 08:46 | NM_ITS ---
CLINICAL: 61-year-old male with history of third lumbar vertebral radiographic abnormality. WHOLE BODY 99m Tc MDP RADIONUCLIDE BONE SCINTIGRAPHY COMPARISON: None available FINDINGS: Following the intravenous administration of 27.7 mCi of 99m Tc MDP, whole body bone images reveal: 1. Increased radiopharmaceutical concentration is defined in the third lumbar vertebra anteriorly and posteriorly on the right. 2. Enhanced uptake is noted in the visualized right elbow, the bilateral knees, the acromioclavicular and sternoclavicular compartments of both shoulders, the mid cervical spine posteriorly on the right. 3. The remaining skeletal structures are scintigraphically unremarkable with normal-appearing renal images and urinary bladder activity identified. Facilitated tracer distribution is manifest in the left maxilla most consistent with periodontal disease and/or periostitis. NM/Bone Scan Whole Body IMPRESSION: 1. The increase in tracer uptake noted in the third lumbar vertebra is most consistent with degenerative arthrosis. Further evaluation with magnetic resonance imaging may be of benefit. 2. Degenerative arthritis is defined in the right elbow, both knee articulations, the cervical spine shoulders bilaterally. 3. There is no definitive scintigraphic evidence of diffuse axial skeletal metastatic disease the current examination. Electronically Signed: Frankie Benton, at 23:16 EDT ,
== END | disposition home or self-care (01) ==
LOC: NM 08:45
PROVIDERS: PCP Family Medicine; Referring Provider Internal Medicine Hematology & Oncology; Visit Provider Internal Medicine Hematology & Oncology
DX: M89.9 Disorder of bone, unspecified (principal)
CPT/HCPCS: 78306; A9503

== ENCOUNTER → 2022-11-26 | Outpatient (CLI) | payer MEDICARE, MEDICAID, SELFPAY ==
[2022-11-26 15:15] LABS: Absolute Lymphocyte Count 2.62 X10^3/uL (0.83-4.51); Absolute Neutrophil Count 2.3 X10^3/uL (2.0-7.7); Basophil# 0.03 X10^3/uL; Basophil% 0.5 % (0-1); Eosinophil# 0.12 X10^3/uL; Eosinophils% 1.9 % (0-5); Hematocrit 41.1 % (40-54); Hemoglobin 13.9 g/dL (13.0-16.5); Lymphocyte # 2.62 X10^3/ul (0.83-4.51); Mean Corp Hgb Conc 33.8 g/dL (32-36); Mean Corpuscular Hgb 33.1 pg (27.0-32.0); Mean Corpuscular Volume 97.9 fL (80-94); Mean Platelet Vol. 9.6 fl (6.2-12.0); Monocyte# 1.21 X10^3/uL; Monocyte% 19.4 % (0-10); NRBC Flagged by Analyzer 0 % (0-5); Neutrophil # 2.25 X10^3/uL (2.7-7.7); POSITIVE COUNT YES; Platelet Count 82 K/mm3 (150-450); RBC Distribution Width CV 15.4 % (11.6-14.6); RBC Distribution Width SD 55.1 fl (35.1-43.9); White Blood Count 6.2 K/mm3 (4.4-11.0)
[2022-11-26 15:24] LABS: International Normalized Ratio 1.4; Prothrombin Time (Protime)PT. 17.6 SECONDS (11.7-14.9)
[2022-11-26 15:35] LABS: Erythrocyte Sedimentation Rate 1 mm/hr (0-20)
[2022-11-26 16:12] LABS: ALB/GLOB Ratio 0.8 RATIO (0.9-2.4); AST(SGOT) 45 U/L (15-37); Alanine Aminotransfer ALT/SGPT 30 U/L (16-61); Albumin, Serum 2.9 g/dL (3.2-5.0); Alkaline Phosphatase 134 U/L (45-117); Anion Gap 2 (5-15); BUN 4 mg/dL (7-18); BUN/Creat Ratio 6.7 RATIO (10-20); CRP < 2.90 mg/L (0.0-3.0); Calcium,Total 8.1 mg/dL (8.5-10.1); Chloride 108 mmol/L (98-107); EST Glomerular Filtration Rate 145 mL/min (>60); Est Glom Filt Rate - Afr Amer 175 mL/min (>60); Globulin 3.7 g/dL (2.2-4.2); Glucose 78 mg/dL (74-106); LDH 242 U/L (87-241); Potassium 3.6 mmol/L (3.5-5.1); Protein, Total 6.6 g/dL (6.4-8.2); Sodium Level 139 mmol/L (136-145)
[2022-11-27 11:20] LABS: Pathologist Review Reviewed
== END | disposition home or self-care (01) ==
LOC: LAB 15:00
PROVIDERS: PCP Family Medicine; Referring Provider Internal Medicine Gastroenterology; Visit Provider Internal Medicine Gastroenterology
DX: K70.30 Alcoholic cirrhosis of liver without ascites (principal); K74.60 Unspecified cirrhosis of liver
CPT/HCPCS: 36415; 80053; 82140; 83615; 85025; 85610; 85652; 86140

== ENCOUNTER 2023-05-17 19:52 | Emergency (ER) | payer MEDICARE, MEDICAID, SELFPAY ==
[2023-05-17 19:55] VITALS: BP 135/70; PULSE 77; RESP 16; TEMP 36.3; O2SAT 95; BMI 34.0
--- NOTE | 2023-05-17 20:08 | RAD_ITS ---
EXAM: XR RIGHT ANKLE COMPLETE, 3 OR MORE VIEWS CLINICAL INDICATION: pain TECHNIQUE: Frontal, lateral and oblique views of the right ankle. COMPARISON: No relevant prior studies available. FINDINGS: BONES/JOINTS: Fracture of the medial malleolus. Comminuted fracture of the distal fibula. Medial dislocation of the ankle. Soft tissue swelling overlying the ankle. Soft tissue air overlying the region of the distal fibula. No sclerotic or destructive changes observed. SOFT TISSUES: See above. RAD/Ankle min 3 Views IMPRESSION: Fracture of the medial malleolus. Comminuted fracture of the distal fibula. Medial dislocation of the ankle. Soft tissue swelling overlying the ankle. Electronically Signed: Denton Bales MD at 21:11 EDT ,
--- NOTE | 2023-05-17 20:08 | RAD_ITS ---
EXAM: XR RIGHT FOOT, 2 VIEWS CLINICAL INDICATION: pain TECHNIQUE: Frontal and lateral views of the right foot. COMPARISON: No relevant prior studies available. FINDINGS: BONES/JOINTS: Fracture of the medial malleolus. Comminuted fracture of the distal fibula. Medial dislocation of the ankle. Soft tissue swelling overlying the ankle. No sclerotic or destructive changes observed. SOFT TISSUES: See above. RAD/Foot 2 Views IMPRESSION: Fracture of the medial malleolus. Comminuted fracture of the distal fibula. Medial dislocation of the ankle. Soft tissue swelling overlying the ankle. Electronically Signed: Denton Bales MD at 21:12 EDT ,
[2023-05-17] MEDS: Ondansetron 4 MG/2 ML Vial IV (20:14)
[2023-05-17] MEDS: Diphth,Pertuss(Acell),Tet Vac 0.5 ML Vial IM (20:18)
--- NOTE | 2023-05-17 20:18 | EX.ED.DYSGE1 ---
HPI <PAIGE Marinelli - Last Filed: 05/17/23 22:02> History of Present Illness Chief Complaint: Lower Extremity Injury Narrative Narrative: Patient was walking in the parking lot when he felt a snap in his right ankle and fell. He tried to get up and fell again. A passerby called EMS and he was brought in. There is concern for open right ankle fracture. He has no numbness or tingling. He has no other injuries. He states he has alcoholic liver disease and low platelets. He is not on blood thinners. [facility] <PAIGE Marinelli - Last Filed: 05/17/23 22:02> [facility] Medical History Abnormal EKG Alcohol intoxication in active alcoholic Alcohol use Alcoholic cirrhosis Alcoholism Alcoholism Aortic aneurysm without rupture Arthritis Ascites Benign essential hypertension Biliary colic Blackout Bone lesion Bruising Cannabis hyperemesis syndrome concurrent with and due to cannabis abuse Cardiology follow-up encounter Chest pain Chronic abdominal pain Chronic anemia Chronic cough Chronic pain Cirrhosis Diastolic dysfunction Easy bruising Esophageal varices Esophageal varices Esophageal varices in alcoholic cirrhosis Frequent falls Gastric reflux Hematemesis Hepatic encephalopathy History of echocardiogram History of edema History of esophageal varices History of GI bleed History of smoking History of stress test Hypokalemia Hypomagnesemia Hypotension Injury of head and neck Intermittent generalized abdominal pain Leg cramps Low iron Marijuana use Obesity Pancytopenia Peripheral arterial disease Preop cardiovascular exam PVD (peripheral vascular disease) PVD (peripheral vascular disease) Restless legs Shortness of breath on exertion Smoker Thrombocytopenia Thrombocytopenia Thrombocytopenia Tobacco use Varices of esophagus determined by endoscopy Walker as ambulation aid Wears glasses Home Medications magnesium oxide 400 mg (241.3 mg magnesium) tablet 400 mg PO TID supplement 03/12/20 [History Last Taken 03/11/20] potassium chloride 10 mEq tablet,extended release 10 meq PO BID supplement 03/12/20 [History Last Taken 03/11/20] tramadol 50 mg tablet 50 mg PO Q6H PRN pain #20 tabs 12/17/20 [Rx Last Taken 09/17/22] multivitamin 1 tab PO DAILY supplement 12/27/20 [History Last Taken Unknown] pantoprazole 40 mg tablet,delayed release 40 mg PO BID gerd 05/22/21 [History Last Taken Unknown] trazodone 100 mg tablet 100 mg PO QHS ANTIDEPRESSANT 07/18/21 [History Last Taken Unknown] thiamine HCl (vitamin B1) 100 mg tablet (Vitamin B-1) 100 mg PO DAILY vitamin #30 tabs 02/18/22 [Rx Last Taken Unknown] vitamin B complex 1 cap PO DAILY vitamin 03/07/22 [History Last Taken Unknown] lactulose 10 gram/15 mL oral solution 30 g PO DAILY SEE DOCTOR 03/16/22 [History Last Taken Unknown] spironolactone 50 mg tablet 50 mg PO BID HYPERTENSION 03/16/22 [History Last Taken 09/17/22] midodrine 10 mg tablet 10 mg PO TID hypotension #270 tabs 04/17/22 [Rx Last Taken Unknown] rifaximin 550 mg tablet (Xifaxan) 550 mg PO BID HEPATIC ENCEPHALOPATHY #180 tabs 04/17/22 [Rx Last Taken Unknown] nadolol 20 mg tablet 10 mg (1/2 x 20 mg) PO BID #45 tabs 07/03/22 [Rx Last Taken Unknown] meclizine 12.5 mg tablet 12.5 mg PO TID PRN dizziness #90 tabs 10/07/22 [Rx Last Taken Unknown] promethazine 25 mg rectal suppository (Promethegan) 25 mg PA Q6H PRN PRN Nausea 3 days #12 ea 10/08/22 [Rx Last Taken Unknown] furosemide 20 mg tablet (Lasix) 20 mg PO DAILY #90 tabs 10/28/22 [Rx Last Taken Unknown] ondansetron 4 mg disintegrating tablet 4 mg PO Q8H PRN PRN Nausea #60 tabs 02/03/23 [Rx Last Taken Unknown] hydroxyzine HCl 25 mg tablet 25 mg PO QHS #30 tabs 03/07/23 [Rx Last Taken Unknown] promethazine 25 mg tablet 25 mg PO Q6H PRN PRN Nausea #30 TABLETS 04/09/23 [Rx Last Taken Unknown] Allergy/AdvReac Type Severity Reaction Status Date / Time No Known Allergies Allergy Verified 05/17/23 19:54 Family History Mother Cancer Father Lupus Surgical History History of abdominal aortic aneurysm repair (~2013) History of esophagogastroduodenoscopy (EGD) History of removal of cyst Social History household members: none Smoking Status: Light Smoker (<10/day) how long ago did patient quit smoking: was smoking 1ppd, now down to 1 ppw alcohol intake: current alcohol intake frequency: a few times a week substance use type: marijuana caffeine: No ROS <PAIGE Marinelli - Last Filed: 05/17/23 22:02> ROS ED ROS Narrative Neuro: Negative for motor/sensory dysfunction. Skin: Positive for open wound. Musc: Positive for right ankle pain. EXAM <PAIGE Marinelli - Last Filed: 05/17/23 22:02> Physical Exam Narrative Exam Narrative: CONST: Patient sitting in no acute distress. EYES: Normal inspection. NECK: Normal inspection. RESP: No respiratory distress, CTAB. CVS: Regular rate and rhythm, no murmur, no gallop. EXTREMITIES: Open wound on the right medial ankle with deformity, slow active bleeding stops with pressure. Tender over distal tibia, no foot tenderness. There is bruising over the dorsal foot. DP pulse intact with Doppler, normal sensation to light touch. NEURO: Oriented x4. PSYCH: Normal affect. Const Vital Signs: 05/17/23 19:55 05/17/23 21:10 05/17/23 22:00 Temperature 97.4 F L Temperature Source Temporal Temporal Pulse Rate 77 79 79 Respiratory Rate 16 15 15 Blood Pressure 135/70 H 128/77 H 135/75 H Blood Pressure Mean 91 94 95 Pulse Ox 95 100 93 Oxygen Delivery Method Room Air Room Air 05/17/23 22:41 Temperature 97.9 F Temperature Source Pulse Rate 81 Respiratory Rate 15 Blood Pressure 135/75 H Blood Pressure Mean 95 Pulse Ox 99 Oxygen Delivery Method <Dr. Orladno Adames DO - Last Filed: 05/17/23 23:00> Physical Exam Const Vital Signs: 05/17/23 19:55 05/17/23 21:10 05/17/23 22:00 Temperature 97.4 F L Temperature Source Temporal Temporal Pulse Rate 77 79 79 Respiratory Rate 16 15 15 Blood Pressure 135/70 H 128/77 H 135/75 H Blood Pressure Mean 91 94 95 Pulse Ox 95 100 93 Oxygen Delivery Method Room Air Room Air 05/17/23 22:41 Temperature 97.9 F Temperature Source Pulse Rate 81 Respiratory Rate 15 Blood Pressure 135/75 H Blood Pressure Mean 95 Pulse Ox 99 Oxygen Delivery Method MDM <PAIGE Marinelli - Last Filed: 05/17/23 22:02> [facility] Narrative Medical decision making narrative: Patient has an open right ankle fracture. Open wound on medial malleolus with visible tibia. Foot deviated laterally. Sensation and pulses intact. IV started and he was given morphine, Zofran, Ancef 2 g, and tetanus. X-ray shows fracture of the medial malleolus and comminuted fracture of the distal fibula with medial dislocation of the ankle. I reduced the ankle into better alignment and placed a temporary Ortho-Glass posterior leg and stirrup splint. I consulted podiatry here but they state the necessary equipment is not available and to transfer. Case was discussed with the transfer line/orthopedics at [facility] and patient is excepted and will be transferred ED to ED. Of note patient has alcoholic liver disease and preop labs were obtained. Hemoglobin is 12.9, platelets 47, INR normal at 2.1. Normal electrolytes and renal function. Alcohol level negative. Findings were relayed to the [facility] team. Consults: [facility] orthopedics/ED Lab Data Attestation: I reviewed the patient's lab results. Labs: Laboratory Results - last 24 hr 05/17/23 05/17/23 20:15 20:32 WBC 5.4 RBC 4.03 L Hgb 12.9 L Hct 38.0 L MCV 94.3 H MCH 32.0 MCHC 33.9 RDW Std Deviation 56.7 H RDW Coeff of Delilah 16.4 H Plt Count 47 L* MPV 11.8 Immature Gran % (Auto) 0.200 Neut % (Auto) 44.5 L Lymph % (Auto) 33.5 [place] % (Auto) 20.0 H Eos % (Auto) 1.1 Baso % (Auto) 0.7 Absolute Neuts (auto) 2.4 Absolute Lymphs (auto) 1.81 Nucleated RBC % 0 Differential Comment SCANNED Diff Path Review June foll PT 23.5 H INR 2.1 APTT 44.2 H Sodium 138 Potassium 3.8 Chloride 104 Carbon Dioxide 29.0 Anion Gap 5 BUN 4 L Creatinine 0.62 L Estim Creat Clear Calc 156.38 Est GFR (MDRD) Af Amer 168 Est GFR (MDRD) Non-Af 139 BUN/Creatinine Ratio 6.4 L Glucose 101 Calcium 7.5 L Ethyl Alcohol 112.0 Blood Type A NEGATIVE Antibody Screen NEGATIVE Radiography Diagnostic Testing: Clinical Impression(s) from Imaging Studies Ankle X-Ray 05/17/23 20:08 IMPRESSION: Fracture of the medial malleolus. Comminuted fracture of the distal fibula. Medial dislocation of the ankle. Soft tissue swelling overlying the ankle. Electronically Signed: Denton Bales MD at 21:11 EDT , Foot X-Ray 05/17/23 20:08 IMPRESSION: Fracture of the medial malleolus. Comminuted fracture of the distal fibula. Medial dislocation of the ankle. Soft tissue swelling overlying the ankle. Electronically Signed: Denton Bales MD at 21:12 EDT , Tibia/Fibula X-Ray 05/17/23 20:30 IMPRESSION: Fracture of the medial malleolus. Comminuted fracture of the distal fibula. Medial dislocation of the ankle. Soft tissue swelling overlying the ankle. Electronically Signed: Denton Bales MD at 21:10 EDT , ED attending interpretation of tibia/fibula and ankle show a bimalleolar fracture with a medial ankle dislocation. No additional fractures in the foot. <Dr. Orlando Adames, DO - Last Filed: 05/17/23 23:00> [facility] Narrative Medical decision making narrative: Patient has an open right ankle fracture. Open wound on medial malleolus with visible tibia. Foot deviated laterally. Sensation and pulses intact. IV started and he was given morphine, Zofran, Ancef 2 g, and tetanus. X-ray shows fracture of the medial malleolus and comminuted fracture of the distal fibula with medial dislocation of the ankle. I reduced the ankle into better alignment and placed a temporary Ortho-Glass posterior leg and stirrup splint. I consulted podiatry here but they state the necessary equipment is not available and to transfer. Case was discussed with the transfer line/orthopedics at [facility] and patient is excepted and will be transferred ED to ED. Of note patient has alcoholic liver disease and preop labs were obtained. Hemoglobin is 12.9, platelets 47, INR normal at 2.1. Normal electrolytes and renal function. Alcohol level negative. Findings were relayed to the [facility] team. Consults: [facility] orthopedics/ED This patient was seen with a PA/ELECT[employer]OME[employer]IS[employer] DES[employer] DRAFTER Individually assessed they patient including history and physical. I have reviewed everything on the chart that is available and agree with the documentation provided by the PA/ELECT[employer]CH[employer]IS[employer] DES[employer] D[employer]TER including discussion about the assessment, treatment plan, discussion, and return precautions. Patient with open right ankle fracture. He is given Zofran, Ancef, tetanus. He is medicated with morphine and fentanyl to keep his pain in control. X-rays 3 views of the right ankle, 2 views of the right tib-fib, 2 views of the right foot show a bimalleolar fracture with dislocation. Patient discussed with podiatry but needs to be transferred as the appropriate equipment to fix the patient's ankle was not available. Discussed with Dr. Cloud transfer line who requested that we reduce the ankle which was performed. Both I and the PA cleaned and dressed the open wound and placed a posterior splint with stirrup and fabricated out of Ortho-Glass and well-padded. Neurovascular intact after placement. He feels much better with the splint on. Patient transferred in stable condition. Impression: 1. Bimalleolar fracture 2. Thrombocytopenia 3. Mechanical fall Lab Data Labs: Laboratory Results - last 24 hr 05/17/23 05/17/23 20:15 20:32 WBC 5.4 RBC 4.03 L Hgb 12.9 L Hct 38.0 L MCV 94.3 H MCH 32.0 MCHC 33.9 RDW Std Deviation 56.7 H RDW Coeff of Delilah 16.4 H Plt Count 47 L* MPV 11.8 Immature Gran % (Auto) 0.200 Neut % (Auto) 44.5 L Lymph % (Auto) 33.5 [place] % (Auto) 20.0 H Eos % (Auto) 1.1 Baso % (Auto) 0.7 Absolute Neuts (auto) 2.4 Absolute Lymphs (auto) 1.81 Nucleated RBC % 0 Differential Comment SCANNED Diff Path Review June foll PT 23.5 H INR 2.1 APTT 44.2 H Sodium 138 Potassium 3.8 Chloride 104 Carbon Dioxide 29.0 Anion Gap 5 BUN 4 L Creatinine 0.62 L Estim Creat Clear Calc 156.38 Est GFR (MDRD) Af Amer 168 Est GFR (MDRD) Non-Af 139 BUN/Creatinine Ratio 6.4 L Glucose 101 Calcium 7.5 L Ethyl Alcohol 112.0 Blood Type A NEGATIVE Antibody Screen NEGATIVE Radiography Diagnostic Testing: Clinical Impression(s) from Imaging Studies Ankle X-Ray 05/17/23 20:08 IMPRESSION: Fracture of the medial malleolus. Comminuted fracture of the distal fibula. Medial dislocation of the ankle. Soft tissue swelling overlying the ankle. Electronically Signed: Denton Bales MD at 21:11 EDT Reading Location ID and State: [facility] / [place] , Service support , Foot X-Ray 05/17/23 20:08 IMPRESSION: Fracture of the medial malleolus. Comminuted fracture of the distal fibula. Medial dislocation of the ankle. Soft tissue swelling overlying the ankle. Electronically Signed: Denton Bales MD at 21:12 EDT Reading Location ID and State: [facility] / [place] , Service support , Tibia/Fibula X-Ray 05/17/23 20:30 IMPRESSION: Fracture of the medial malleolus. Comminuted fracture of the distal fibula. Medial dislocation of the ankle. Soft tissue swelling overlying the ankle. Electronically Signed: Denton Bales MD at 21:10 EDT , Discharge Plan Triage Chief Complaint: Lower Extremity Injury ED Midlevel Provider: Alice Lemon ED Provider: Orlando Adames Dx/Rx/DC Orders Clinical Impression: Open fracture dislocation of right ankle, History of liver disease, Thrombocytopenia Prescriptions: No Action tramadol 50 mg tablet 50 mg PO Q6H PRN (Reason: pain) Qty: 20 0RF potassium chloride 10 MEQ tablet extended release 10 meq PO BID magnesium oxide 400 MG tablet 400 mg PO TID Rx Instructions: takes with meals multivitamin Tablet 1 tab PO DAILY trazodone 100 mg Tablet 100 mg PO QHS pantoprazole 40 mg tablet,delayed release (DR/EC) 40 mg PO BID Patient Comments: TAKE 1 TABLET BY MOUTH TWICE DAILY vitamin B complex Capsule 1 cap PO DAILY spironolactone 50 mg tablet 50 mg PO BID lactulose 10 gram/15 mL solution 30 g PO DAILY promethazine [Promethegan] 25 mg suppository 25 mg PA Q6H PRN PRN (Reason: Nausea) 3 Days Qty: 12 0RF thiamine HCl (vitamin B1) [Vitamin B-1] 100 mg tablet 100 mg PO DAILY Qty: 30 5RF midodrine 10 mg tablet 10 mg PO TID Qty: 270 3RF Rx Instructions: do not give last dose of day after 6PM or within 4 hrs of bedtime Xifaxan 550 mg tablet 550 mg PO BID Qty: 180 3RF nadolol 20 mg tablet 10 mg PO BID Qty: 45 3RF meclizine 12.5 mg tablet 12.5 mg PO TID PRN (Reason: dizziness) Qty: 90 11RF furosemide [Lasix] 20 mg tablet 20 mg PO DAILY Qty: 90 3RF ondansetron 4 mg tablet,disintegrating 4 mg PO Q8H PRN PRN (Reason: Nausea) Qty: 60 3RF hydroxyzine HCl 25 mg tablet 25 mg PO QHS Qty: 30 2RF promethazine 25 mg tablet 25 mg PO Q6H PRN PRN (Reason: Nausea) Qty: 30 3RF Primary Care Provider: Alice Cuellar Referrals: Alice Cuellar DO [Primary Care Provider] -
[2023-05-17] MEDS: Morphine 4 MG/ML Syringe IV (20:19)
--- NOTE | 2023-05-17 20:30 | RAD_ITS ---
EXAM: XR RIGHT TIBIA AND FIBULA, 2 VIEWS CLINICAL INDICATION: pain TECHNIQUE: Frontal and lateral views of the right tibia and fibula. COMPARISON: No relevant prior studies available. FINDINGS: BONES/JOINTS: Fracture of the medial malleolus. Comminuted fracture of the distal fibula. Medial dislocation of the ankle. Soft tissue swelling overlying the ankle. No sclerotic or destructive changes observed. SOFT TISSUES: See above. RAD/Tibia & Fibula 2 Views IMPRESSION: Fracture of the medial malleolus. Comminuted fracture of the distal fibula. Medial dislocation of the ankle. Soft tissue swelling overlying the ankle. Electronically Signed: Denton Bales MD at 21:10 EDT ,
[2023-05-17 20:31] LABS: Absolute Lymphocyte Count 1.81 X10^3/uL (0.83-4.51); Absolute Neutrophil Count 2.4 X10^3/uL (2.0-7.7); Basophil# 0.04 X10^3/uL; Basophil% 0.7 % (0-1); Eosinophil# 0.06 X10^3/uL; Eosinophils% 1.1 % (0-5); Hemoglobin 12.9 g/dL (13.0-16.5); Lymphocyte # 1.81 X10^3/ul (0.83-4.51); Lymphocyte % 33.5 % (19-41); Mean Corp Hgb Conc 33.9 g/dL (32-36); Mean Corpuscular Volume 94.3 fL (80-94); Mean Platelet Vol. 11.8 fl (6.2-12.0); Monocyte# 1.08 X10^3/uL; NRBC Flagged by Analyzer 0 % (0-5); Neutrophil # 2.41 X10^3/uL (2.7-7.7); Neutrophil % 44.5 % (47-70); POSITIVE COUNT YES; RBC Distribution Width CV 16.4 % (11.6-14.6); RBC Distribution Width SD 56.7 fl (35.1-43.9); Red Blood Count 4.03 M/mm3 (4.6-6.2); White Blood Count 5.4 K/mm3 (4.4-11.0)
[2023-05-17 20:38] LABS: Differential Indicated SCAN CRITERIA MET; Platelet Count 47 K/mm3 (150-450)
[2023-05-17 20:40] LABS: International Normalized Ratio 2.1; Prothrombin Time (Protime)PT. 23.5 SECONDS (11.7-14.9)
[2023-05-17 20:41] LABS: Partial Thromboplast Time 44.2 Seconds (24.1-36.2)
[2023-05-17 20:42] LABS: Anion Gap 5 (5-15); BUN 4 mg/dL (7-18); BUN/Creat Ratio 6.4 RATIO (10-20); Calcium,Total 7.5 mg/dL (8.5-10.1); Chloride 104 mmol/L (98-107); Creatinine, Serum 0.62 mg/dL (0.70-1.30); EST Glomerular Filtration Rate 139 mL/min (>60); Est Glom Filt Rate - Afr Amer 168 mL/min (>60); Estimated Creatinine Clearance 156.38 ml/min; Glucose 101 mg/dL (74-106); Potassium 3.8 mmol/L (3.5-5.1); Sodium Level 138 mmol/L (136-145)
[2023-05-17 21:10] VITALS: BP 128/77; PULSE 79; RESP 15; O2SAT 100
[2023-05-17 21:10] LABS: Differential Comment SCANNED
[2023-05-17] MEDS: HYDROmorphone 0.5 MG/0.5 ML SYRINGE IV (21:17)
[2023-05-17] MEDS: Cefazolin 2 GM in 0.9% Normal Saline (100mL Bag) 100 ML IV (21:20)
--- NOTE | 2023-05-17 21:29 | ED.RN ---
PT ACCEPTED AT [facility] ED TO ED N2N [id number] SQUAD ETA GIVEN 3 HRS (APPROX [id number]) ASKED TO TRY AND OUTSOURCE, PHYSICIANS TO CALL BACK WITH UPDATES.
[2023-05-17 22:00] VITALS: BP 135/75; PULSE 79; RESP 15; O2SAT 93
[2023-05-17] MEDS: fentaNYL 100 MCG/2 ML Ampul 50 MCG IV (22:38)
[2023-05-17 22:41] VITALS: BP 135/75; PULSE 81; RESP 15; TEMP 36.6; O2SAT 99
[2023-05-17 23:14] VITALS: BP 126/68; PULSE 77; RESP 12; O2SAT 93
[2023-05-19 10:32] LABS: Pathologist Review Reviewed
== END 2023-05-17 23:28 | disposition short-term general hospital (02) ==
PROVIDERS: Physician Assistant; Emergency Provider Student in an Organized Health Care Education/Training Program; PCP Family Medicine; Visit Provider Student in an Organized Health Care Education/Training Program
DX: S82.841A Displaced bimalleolar fracture of right lower leg, initial encounter for closed fracture (principal); K76.82 Hepatic encephalopathy; K70.9 Alcoholic liver disease, unspecified; I50.30 Unspecified diastolic (congestive) heart failure; I11.0 Hypertensive heart disease with heart failure; D69.6 Thrombocytopenia, unspecified; Y92.481 Parking lot as the place of occurrence of the external cause; Z87.891 Personal history of nicotine dependence; K21.9 Gastro-esophageal reflux disease without esophagitis; Z79.899 Other long term (current) drug therapy; I95.9 Hypotension, unspecified; X58.XXXA Exposure to other specified factors, initial encounter; Y93.01 Activity, walking, marching and hiking; S82.51XB Displaced fracture of medial malleolus of right tibia, initial encounter for open fracture type I or II
CPT/HCPCS: 27810; 73590; 73610; 73620; 80048; 80320; 85025; 85610; 85730; 86850; 86900; 86901; 90715; 96361; 96374; 96375; 99284; A4216; G0480; J2405

== ENCOUNTER → 2023-05-22 | Outpatient (REF) | payer MEDICARE, MEDICAID, SELFPAY ==
[2023-05-22 09:06] LABS: Hematocrit 27.8 % (40-54); Hemoglobin 9.1 g/dL (13.0-16.5); Mean Corp Hgb Conc 32.7 g/dL (32-36); Mean Corpuscular Hgb 32.2 pg (27.0-32.0); Mean Corpuscular Volume 98.2 fL (80-94); Mean Platelet Vol. 10.9 fl (6.2-12.0); POSITIVE COUNT YES; RBC Distribution Width CV 17.6 % (11.6-14.6); RBC Distribution Width SD 62.4 fl (35.1-43.9); Red Blood Count 2.83 M/mm3 (4.6-6.2); White Blood Count 3.7 K/mm3 (4.4-11.0)
[2023-05-22 09:53] LABS: Platelet Count 44 K/mm3 (150-450); Scan Indicated on CBC? Y/N YES- FLAGS NOTED
[2023-05-22 10:20] LABS: Anion Gap 5 (5-15); BUN 8 mg/dL (7-18); Calcium,Total 7.8 mg/dL (8.5-10.1); Chloride 111 mmol/L (98-107); Creatinine, Serum 0.44 mg/dL (0.70-1.30); EST Glomerular Filtration Rate 205 mL/min (>60); Est Glom Filt Rate - Afr Amer 248 mL/min (>60); Glucose 90 mg/dL (74-106); Sodium Level 141 mmol/L (136-145)
[2023-05-26 09:24] LABS: Pathologist Review Reviewed
== END ==
LOC: OLS.SW 05:00
PROVIDERS: PCP Family Medicine; Visit Provider Family Medicine
DX: Z02.2 Encounter for examination for admission to residential institution (principal); F10.239 Alcohol dependence with withdrawal, unspecified; K92.2 Gastrointestinal hemorrhage, unspecified
CPT/HCPCS: 36415; 80048; 85027

== ENCOUNTER 2023-06-19 09:15 | Emergency (ER) | payer MEDICARE, MEDICAID, SELFPAY ==
[2023-06-19 09:17] VITALS: BP 150/67; PULSE 81; RESP 13; TEMP 35.8; O2SAT 99; BMI 32.5
[2023-06-19 09:52] LABS: Absolute Lymphocyte Count 0.74 X10^3/uL (0.83-4.51); Absolute Neutrophil Count 1.2 X10^3/uL (2.0-7.7); Eosinophil# 0.04 X10^3/uL; Eosinophils% 1.8 % (0-5); Hematocrit 29.5 % (40-54); Hemoglobin 9.3 g/dL (13.0-16.5); Lymphocyte # 0.74 X10^3/ul (0.83-4.51); Lymphocyte % 32.5 % (19-41); Mean Corp Hgb Conc 31.5 g/dL (32-36); Mean Corpuscular Hgb 28.4 pg (27.0-32.0); Mean Corpuscular Volume 89.9 fL (80-94); Mean Platelet Vol. 11.3 fl (6.2-12.0); Monocyte# 0.33 X10^3/uL; Monocyte% 14.5 % (0-10); NRBC Flagged by Analyzer 0 % (0-5); Neutrophil # 1.17 X10^3/uL (2.7-7.7); Neutrophil % 51.2 % (47-70); POSITIVE COUNT YES; RBC Distribution Width CV 15.8 % (11.6-14.6); RBC Distribution Width SD 52.1 fl (35.1-43.9); Red Blood Count 3.28 M/mm3 (4.6-6.2); White Blood Count 2.3 K/mm3 (4.4-11.0)
[2023-06-19 09:58] LABS: Differential Indicated SCAN CRITERIA MET; Platelet Count 49 K/mm3 (150-450)
[2023-06-19 10:13] LABS: ALB/GLOB Ratio 0.7 RATIO (0.9-2.4); AST(SGOT) 28 U/L (15-37); Alanine Aminotransfer ALT/SGPT 22 U/L (16-61); Albumin, Serum 2.3 g/dL (3.2-5.0); Alkaline Phosphatase 104 U/L (45-117); Anion Gap 3 (5-15); BUN 6 mg/dL (7-18); BUN/Creat Ratio 10.8 RATIO (10-20); Calcium,Total 8.2 mg/dL (8.5-10.1); Chloride 113 mmol/L (98-107); Creatinine, Serum 0.56 mg/dL (0.70-1.30); EST Glomerular Filtration Rate 159 mL/min (>60); Est Glom Filt Rate - Afr Amer 192 mL/min (>60); Estimated Creatinine Clearance 169.43 ml/min; Globulin 3.3 g/dL (2.2-4.2); Glucose 143 mg/dL (74-106); Potassium 3.7 mmol/L (3.5-5.1); Protein, Total 5.6 g/dL (6.4-8.2); Sodium Level 144 mmol/L (136-145)
[2023-06-19 10:33] LABS: Platelet Estimate MKD DEC (ADEQ)
--- NOTE | 2023-06-19 10:45 | EX.ED.DYSGE1 ---
HPI History of Present Illness Chief Complaint: Abn Labs Informant: patient, EMS and SNF Narrative Narrative: 62-year-old male presenting to the emergency department via EMS from [facility] where he was currently rehab read for right ankle fracture/surgery. Patient has a history of alcoholic cirrhosis complicated with esophageal varices portal hypertension, pancytopenia, hepatic encephalopathy and ascites. Reportedly the patient had an ammonia level this morning at 94. He was noted to be leukopenic, anemic, and thrombocytopenic. Patient states he generally feels tired which has been an ongoing issue due to his inability to ambulate. Was noted by retirement that he was ANO x 3. Patient has good awareness of what is going on. He continues to smoke a couple cigarettes a day. No reported fevers. He notes that the ankle has been healing well. He is not currently drinking. [facility] Medical History Abnormal EKG Alcohol intoxication in active alcoholic Alcohol use Alcoholic cirrhosis Alcoholism Alcoholism Aortic aneurysm without rupture Arthritis Ascites Benign essential hypertension Biliary colic Blackout Bone lesion Bruising Cannabis hyperemesis syndrome concurrent with and due to cannabis abuse Cardiology follow-up encounter Chest pain Chronic abdominal pain Chronic anemia Chronic cough Chronic pain Cirrhosis Diastolic dysfunction Easy bruising Esophageal varices Esophageal varices Esophageal varices in alcoholic cirrhosis Frequent falls Gastric reflux Hematemesis Hepatic encephalopathy History of echocardiogram History of edema History of esophageal varices History of GI bleed History of smoking History of stress test Hypokalemia Hypomagnesemia Hypotension Injury of head and neck Intermittent generalized abdominal pain Leg cramps Low iron Marijuana use Obesity Pancytopenia Peripheral arterial disease Preop cardiovascular exam PVD (peripheral vascular disease) PVD (peripheral vascular disease) Restless legs Shortness of breath on exertion Smoker Thrombocytopenia Thrombocytopenia Thrombocytopenia Tobacco use Varices of esophagus determined by endoscopy Walker as ambulation aid Wears glasses Home Medications magnesium oxide 400 mg (241.3 mg magnesium) tablet 400 mg PO TID supplement 03/12/20 [History Last Taken 06/19/23] potassium chloride 10 mEq tablet,extended release 10 meq PO BID supplement 03/12/20 [History Last Taken 06/19/23] tramadol 50 mg tablet 50 mg PO Q6H PRN pain #20 tabs 12/17/20 [Rx Last Taken 06/19/23] multivitamin 1 tab PO DAILY supplement 12/27/20 [History Last Taken 06/19/23] pantoprazole 40 mg tablet,delayed release 40 mg PO BID gerd 05/22/21 [History Last Taken 06/19/23] trazodone 100 mg tablet 100 mg PO QHS ANTIDEPRESSANT 07/18/21 [History Last Taken 06/18/23] thiamine HCl (vitamin B1) 100 mg tablet (Vitamin B-1) 100 mg PO DAILY vitamin #30 tabs 02/18/22 [Rx Last Taken 06/19/23] vitamin B complex 1 cap PO DAILY vitamin 03/07/22 [History Last Taken 06/19/23] lactulose 10 gram/15 mL oral solution 30 g PO DAILY SEE DOCTOR 03/16/22 [History Last Taken 06/18/23] spironolactone 50 mg tablet 50 mg PO BID HYPERTENSION 03/16/22 [History Last Taken 06/19/23] midodrine 10 mg tablet 10 mg PO TID hypotension #270 tabs 04/17/22 [Rx Last Taken 06/19/23] rifaximin 550 mg tablet (Xifaxan) 550 mg PO BID HEPATIC ENCEPHALOPATHY #180 tabs 04/17/22 [Rx Last Taken 06/19/23] nadolol 20 mg tablet 10 mg (1/2 x 20 mg) PO BID #45 tabs 07/03/22 [Rx Last Taken Unknown] meclizine 12.5 mg tablet 12.5 mg PO TID PRN dizziness #90 tabs 10/07/22 [Rx Last Taken 06/19/23] furosemide 20 mg tablet (Lasix) 20 mg PO DAILY #90 tabs 10/28/22 [Rx Last Taken Unknown] hydroxyzine HCl 25 mg tablet 25 mg PO QHS #30 tabs 03/07/23 [Rx Last Taken 06/18/23] ondansetron 4 mg disintegrating tablet 4 mg PO Q8H PRN Nausea 06/19/23 [History Last Taken Unknown] promethazine 25 mg tablet 25 mg PO Q6H PRN Nausea 06/19/23 [History Last Taken 06/19/23] Allergy/AdvReac Type Severity Reaction Status Date / Time No Known Allergies Allergy Verified 05/17/23 19:54 Family History Mother Cancer Father Lupus Surgical History History of abdominal aortic aneurysm repair (~2013) History of esophagogastroduodenoscopy (EGD) History of removal of cyst Social History household members: none Smoking Status: Light Smoker (<10/day) how long ago did patient quit smoking: was smoking 1ppd, now down to 1 ppw alcohol intake: current alcohol intake frequency: a few times a week substance use type: marijuana caffeine: No ROS ROS ED ROS Narrative Generalized fatigue Constitutional Constitutional ED: Denies chills or weight loss Eyes Eyes: Denies change in vision or diplopia ENT ENT ED: Denies ear pain, rhinorrhea or sore throat Cardiovascular Cardiovascular: Denies chest pain, orthopnea, palpitations or racing heartbeat Respiratory/Chest Respiratory/Chest: Denies cough, dyspnea or orthopnea Gastrointestinal Gastrointestinal: Reports diarrhea and other Details: Abdominal bloating ; Denies abdominal pain, nausea or vomiting Genitourinary Genitourinary ED: Denies dysuria, hematuria or urinary frequency Musculoskeletal Musculoskeletal: Denies arthralgias or myalgias Integumentary Denies abscess or rash Neurologic Neurologic: Denies headache(s) or weakness Psychiatric Psychiatric: Denies anxiety, depression, suicidal ideation or suicidal thoughts Endocrine Endocrinology: Denies polydipsia, polyphagia or polyuria Hematologic/Lymphatic Hematologic/Lymphatic: Reports easy bleeding and easy bruising Allergic/Immunologic Allergic/Immunologic ED: Denies mouth swelling, tongue swelling or urticaria EXAM Physical Exam Const Vital Signs: 06/19/23 09:17 06/19/23 11:16 Temperature 96.5 F L Temperature Source Tympanic Pulse Rate 81 80 Respiratory Rate 13 18 Blood Pressure 150/67 H 140/88 H Blood Pressure Mean 94 105 Pulse Ox 99 96 Oxygen Delivery Method Room Air Room Air Positive well nourished, well developed and obese General Appearance ED: well developed Nutritional Appearance: obese HEENT Reports normocephalic, head/scalp atraumatic and moist mucous membranes Eyes PERRL and EOMs intact bilaterally Neck no lymphadenopathy, supple and no JVD Resp normal respiratory effort and clear to auscultation bilaterally Cardio regular rate, regular rhythm and no murmurs GI GI Narrative: There appears to be some abdominal ascites but the abdomen is still soft (not tense) Auscultation: normoactive bowel sounds Palpation: soft; Negative for tender Back/Spine no CVA tenderness and normal ROM Extremity Extremity Narrative: Right leg/foot is in boot orthosis. Capillary refill of the toes. General Extremety ED: Negative for edema General Extremity: Negative for edema Neuro oriented x3 and CN's II-XII intact bilaterally Sensorium / Orientation: alert Motor Exam: strength 5/5 throughout Psych mental status grossly normal Mood & Affect: Negative for depressed or tearful Skin no rashes or lesions noted MDM MDM MDM Narrative Medical decision making narrative: Patient's white count 2.3 hemoglobin 9.3 and platelet count of 49. Hemoglobin and platelet count appear stable. White count is slightly lower than normal. He has had these findings in the past. Total bilirubin 0.7 AST and ALT within normal limits alk phos 104 ammonia level reported this morning at 94 is currently 63. Creatinine 0.56. Anion gap of 3 with a CO2 of 28. I spoke with Dr. Sheldon from gastroenterology. And have him increase his lactulose. He is still A&O x 3. He is tolerating fluids. He actually is mentating and clinically appears better than I have seen him over the past couple years. I spoke with primary care from [facility] Dr. Qiu. History & Record Review Discussion w/independent historian: EMS personnel, Patient and Other (Paperwork from [facility]) Lab Data Attestation: I reviewed the patient's lab results. Labs: Laboratory Results - last 24 hr 06/19/23 09:40 WBC 2.3 L RBC 3.28 L Hgb 9.3 L Hct 29.5 L MCV 89.9 MCH 28.4 MCHC 31.5 L RDW Std Deviation 52.1 H RDW Coeff of Delilah 15.8 H Plt Count 49 L* MPV 11.3 Immature Gran % (Auto) 0.000 Neut % (Auto) 51.2 Lymph % (Auto) 32.5 [place] % (Auto) 14.5 H Eos % (Auto) 1.8 Baso % (Auto) 0.0 Absolute Neuts (auto) 1.2 L Absolute Lymphs (auto) 0.74 L Nucleated RBC % 0 Diff Path Review May foll Platelet Estimate MKD DEC Sodium 144 Potassium 3.7 Chloride 113 H Carbon Dioxide 28.0 Anion Gap 3 L BUN 6 L Creatinine 0.56 L Estim Creat Clear Calc 169.43 Est GFR (MDRD) Af Amer 192 Est GFR (MDRD) Non-Af 159 BUN/Creatinine Ratio 10.8 Glucose 143 H Calcium 8.2 L Total Bilirubin 0.70 AST 28 ALT 22 Alkaline Phosphatase 104 Ammonia 63.0 H Total Protein 5.6 L Albumin 2.3 L Globulin 3.3 Albumin/Globulin Ratio 0.7 L Management Discussion w/another healthcare provider: Bedspread Folder (Gi (Dr. Sheldon) PCP (Dr. Qiu)) Discharge Plan Triage Chief Complaint: Abn Labs ED Provider: Jose Ramon Dickinson Dx/Rx/DC Orders Clinical Impression: Increased ammonia level, Alcoholic cirrhosis, Pancytopenia Instructions: Ammonia, ED Cirrhosis Prescriptions: No Action tramadol 50 mg tablet 50 mg PO Q6H PRN (Reason: pain) Qty: 20 0RF potassium chloride 10 MEQ tablet extended release 10 meq PO BID magnesium oxide 400 MG tablet 400 mg PO TID Rx Instructions: takes with meals multivitamin Tablet 1 tab PO DAILY trazodone 100 mg Tablet 100 mg PO QHS Patient Comments: PT UNSURE IF 100MG OR 150MG pantoprazole 40 mg tablet,delayed release (DR/EC) 40 mg PO BID vitamin B complex Capsule 1 cap PO DAILY spironolactone 50 mg tablet 50 mg PO BID lactulose 10 gram/15 mL solution 30 g PO DAILY promethazine 25 mg tablet 25 mg PO Q6H PRN (Reason: Nausea) ondansetron 4 mg tablet,disintegrating 4 mg PO Q8H PRN (Reason: Nausea) thiamine HCl (vitamin B1) [Vitamin B-1] 100 mg tablet 100 mg PO DAILY Qty: 30 5RF midodrine 10 mg tablet 10 mg PO TID Qty: 270 3RF Rx Instructions: do not give last dose of day after 6PM or within 4 hrs of bedtime Xifaxan 550 mg tablet 550 mg PO BID Qty: 180 3RF nadolol 20 mg tablet 10 mg PO BID Qty: 45 3RF Patient Comments: PT UNSURE IF HE TAKES THIS MED OR NOT. meclizine 12.5 mg tablet 12.5 mg PO TID PRN (Reason: dizziness) Qty: 90 11RF furosemide [Lasix] 20 mg tablet 20 mg PO DAILY Qty: 90 3RF Patient Comments: PT STATES PHARMACY STOPPED GIVING THEM TO HIM, BUT HES UNAWARE IF HE RAN OUT OF REFILLS OR IF MD CANCELLED RX. hydroxyzine HCl 25 mg tablet 25 mg PO QHS Qty: 30 2RF Primary Care Provider: Alice Cuellar Referrals: Alice Cuellar DO [Primary Care Provider] - Friend,DO Hugo [Med Staff - Active Staff] - As soon as possible Activity Restrictions/Additional Instructions: We are recommending you increase your lactulose to 45 g in the morning. Disposition Disposition: Home, Self Care
[2023-06-19 11:09] LABS: International Normalized Ratio 1.7; Partial Thromboplast Time 29.6 Seconds (24.1-36.2); Prothrombin Time (Protime)PT. 19.4 SECONDS (11.7-14.9)
[2023-06-19 11:16] VITALS: BP 140/88; PULSE 80; RESP 18; O2SAT 96
--- NOTE | 2023-06-19 11:50 | ED.RN ---
This RN called report back to [facility]
[2023-06-19 12:10] VITALS: BP 127/83; PULSE 82; RESP 12; TEMP 36.8; O2SAT 93
[2023-06-19 13:00] VITALS: BP 142/80; PULSE 88; RESP 16; O2SAT 98
[2023-06-22 14:00] LABS: Pathologist Review Reviewed
== END 2023-06-19 14:25 | disposition home or self-care (01) ==
PROVIDERS: Emergency Provider Emergency Medicine; PCP Family Medicine; Visit Provider Emergency Medicine
DX: E72.20 Disorder of urea cycle metabolism, unspecified (principal); D61.818 Other pancytopenia; K70.30 Alcoholic cirrhosis of liver without ascites; Z87.891 Personal history of nicotine dependence; I10 Essential (primary) hypertension; K21.9 Gastro-esophageal reflux disease without esophagitis; Z79.899 Other long term (current) drug therapy
CPT/HCPCS: 80053; 82140; 85025; 85610; 85730; 99282; A4216

== ENCOUNTER → 2023-07-03 | Outpatient (REF) | payer MEDICARE, MEDICAID, SELFPAY ==
[2023-07-03 07:43] LABS: Hematocrit 29.1 % (40-54); Hemoglobin 9.2 g/dL (13.0-16.5); Mean Corp Hgb Conc 31.6 g/dL (32-36); Mean Corpuscular Hgb 26.6 pg (27.0-32.0); Mean Corpuscular Volume 84.1 fL (80-94); Mean Platelet Vol. 10.3 fl (6.2-12.0); POSITIVE COUNT YES; Platelet Count 50 K/mm3 (150-450); RBC Distribution Width CV 17.1 % (11.6-14.6); RBC Distribution Width SD 52.5 fl (35.1-43.9); Red Blood Count 3.46 M/mm3 (4.6-6.2)
[2023-07-03 07:46] LABS: Scan Indicated on CBC? Y/N YES- FLAGS NOTED
[2023-07-03 07:50] LABS: ALB/GLOB Ratio 0.8 RATIO (0.9-2.4); AST(SGOT) 24 U/L (15-37); Alanine Aminotransfer ALT/SGPT 17 U/L (16-61); Albumin, Serum 2.4 g/dL (3.2-5.0); Alkaline Phosphatase 100 U/L (45-117); Anion Gap 5 (5-15); BUN 5 mg/dL (7-18); BUN/Creat Ratio 9.7 RATIO (10-20); Chloride 110 mmol/L (98-107); Creatinine, Serum 0.52 mg/dL (0.70-1.30); EST Glomerular Filtration Rate 173 mL/min (>60); Est Glom Filt Rate - Afr Amer 209 mL/min (>60); Globulin 3.2 g/dL (2.2-4.2); Glucose 95 mg/dL (74-106); Potassium 3.9 mmol/L (3.5-5.1); Protein, Total 5.6 g/dL (6.4-8.2); Sodium Level 142 mmol/L (136-145)
[2023-07-03 08:16] LABS: Differential Comment SCANNED
[2023-07-06 10:14] LABS: Pathologist Review Reviewed
== END ==
LOC: OLS.SW 05:00
PROVIDERS: PCP Family Medicine; Visit Provider Family Medicine
DX: K74.60 Unspecified cirrhosis of liver (principal); K92.2 Gastrointestinal hemorrhage, unspecified
CPT/HCPCS: 36415; 80053; 82140; 85027

== ENCOUNTER → 2023-07-17 | Outpatient (REF) | payer MEDICARE, MEDICAID, SELFPAY ==
[2023-07-17 08:57] LABS: Hematocrit 31.6 % (40-54); Hemoglobin 9.6 g/dL (13.0-16.5); Mean Corp Hgb Conc 30.4 g/dL (32-36); Mean Corpuscular Hgb 25.7 pg (27.0-32.0); Mean Corpuscular Volume 84.7 fL (80-94); POSITIVE COUNT YES; Platelet Count 52 K/mm3 (150-450); RBC Distribution Width CV 19.9 % (11.6-14.6); RBC Distribution Width SD 61.7 fl (35.1-43.9); Red Blood Count 3.73 M/mm3 (4.6-6.2); White Blood Count 3.9 K/mm3 (4.4-11.0)
[2023-07-17 09:11] LABS: ALB/GLOB Ratio 0.8 RATIO (0.9-2.4); AST(SGOT) 42 U/L (15-37); Alanine Aminotransfer ALT/SGPT 36 U/L (16-61); Albumin, Serum 2.5 g/dL (3.2-5.0); Alkaline Phosphatase 98 U/L (45-117); Anion Gap 2 (5-15); BUN 6 mg/dL (7-18); BUN/Creat Ratio 10.4 RATIO (10-20); Chloride 110 mmol/L (98-107); Creatinine, Serum 0.58 mg/dL (0.70-1.30); EST Glomerular Filtration Rate 152 mL/min (>60); Est Glom Filt Rate - Afr Amer 184 mL/min (>60); Globulin 3.3 g/dL (2.2-4.2); Glucose 128 mg/dL (74-106); Potassium 3.4 mmol/L (3.5-5.1); Protein, Total 5.8 g/dL (6.4-8.2); Sodium Level 140 mmol/L (136-145)
== END ==
LOC: OLS.SW 05:00
PROVIDERS: PCP Family Medicine; Visit Provider Internal Medicine
DX: K74.60 Unspecified cirrhosis of liver (principal); K92.2 Gastrointestinal hemorrhage, unspecified
CPT/HCPCS: 36415; 80053; 82140; 85027

== ENCOUNTER 2023-09-16 21:23 | Emergency (ER) | payer MEDICARE, MEDICAID, SELFPAY ==
[2023-09-16 21:28] VITALS: BP 121/62; PULSE 99; RESP 22; TEMP 37.1; O2SAT 92; BMI 31.0
--- NOTE | 2023-09-16 22:25 | RAD_ITS ---
EXAM: XR RIGHT ANKLE COMPLETE, 3 OR MORE VIEWS CLINICAL INDICATION: pain TECHNIQUE: Frontal, lateral and oblique views of the right ankle. COMPARISON: No relevant prior studies available. FINDINGS: BONES/JOINTS: Status post open reduction internal fixation of medial and lateral malleolar fractures with plate and screw fixation of the lateral malleolus and cancellous lag screw fixation of the medial malleolus. There is a syndesmosis screw across the distal tibia and fibula demonstrates abnormal surrounding lucency. Persistent lucency involving the lateral malleolar fracture. Preservation of the joint space. SOFT TISSUES: Soft tissue swelling around the ankle medially and laterally. No radiopaque foreign body. RAD/Ankle min 3 Views IMPRESSION: 1. Persistent lucency involving the lateral malleolar fracture. Probable malunion or nonunion. 2. Lucency around the syndesmosis screw probably due to motion. 3. No acute fracture. N.B. : The above Results were Read Back by Herve Colorado MD to Nahum Mckee MD, and understanding confirmed on 09/16/2023 23:35:54 (ET). Electronically Signed: Herve Colorado MD at 23:41 EDT ,
--- NOTE | 2023-09-16 22:25 | RAD_ITS ---
EXAM: XR RIGHT FOOT COMPLETE, 3 OR MORE VIEWS CLINICAL INDICATION: pain TECHNIQUE: Frontal, lateral and oblique views of the right foot. COMPARISON: No relevant prior studies available. FINDINGS: BONES/JOINTS: Persistent lucency of the medial malleolar and lateral malleolar fracture suggesting nonunion or malunion. Increased lucency around the syndesmosis screw probably due to motion. There is also some lucency around the cancellous medial malleolar screws suggesting motion. Preservation of the joint space. SOFT TISSUES: Soft tissue swelling around the ankle. No radiopaque foreign body. RAD/Foot min 3 Views IMPRESSION: 1. Persistent lucency of the medial malleolar and lateral malleolar fracture suggesting nonunion or malunion. 2. Soft tissue swelling around the ankle. 3. Increased lucency around the syndesmosis screw probably due to motion. There is also some lucency around the cancellous medial malleolar screws suggesting motion. 4. No acute fracture. Electronically Signed: Herve Colorado MD at 23:39 EDT ,
[2023-09-16] MEDS: oxyCODONE 5 MG Tablet PO (22:33)
--- NOTE | 2023-09-16 22:45 | RAD_ITS ---
EXAM: XR PELVIS, 1 OR 2 VIEWS CLINICAL INDICATION: fall TECHNIQUE: Frontal view of the pelvis. COMPARISON: No relevant prior studies available. FINDINGS: BONES/JOINTS: Unremarkable. No displaced fracture. No destructive or sclerotic lesions. Note that overlapping bowel shadows may however obscure fine detail. Sacroiliac joints are unremarkable. No widening of the pubic symphysis. The articular structures are unremarkable. SOFT TISSUES: Unremarkable. No soft tissue swelling or gas. RAD/Pelvis 1 or 2 Views IMPRESSION: No evidence of displaced pelvic fracture. Electronically Signed: Herve Colorado MD at 23:41 EDT ,
--- NOTE | 2023-09-16 22:49 | ED.RN ---
PER HE HAS A HISTORY OF LOW PLATELETS AND HAS BEEN SLEEPING A LOT. DR. MEDINA NOTIFIED
--- NOTE | 2023-09-17 00:24 | EDS_ITS ---
HPI History of Present Illness Chief Complaint: Fall Informant: patient Narrative Narrative: Patient is a 62-year-old male with past medical history of hypertension alcohol abuse/use and cirrhosis secondary to this. He reports that over a year ago he fractured his left ankle and had to have surgery on it. He states he has difficulty walking since that time. He reports this evening he was walking when his legs just gave out and he fell. He states he had pain and swelling to his right foot and ankle and he cannot stand up so EMS was called and based on his previous history was advised to come to the hospital for evaluation. Patient denies striking his head or any history of bleeding disorder or blood thinner use. He denies any headache or loss of consciousness associate with the fall. His main complaint is pain in the right ankle and foot at this time. [facility] Medical History Frequent falls Bone lesion Easy bruising Injury of head and neck Blackout Shortness of breath on exertion Chronic cough PVD (peripheral vascular disease) Leg cramps History of edema Alcohol use Bruising Smoker Cardiology follow-up encounter History of echocardiogram History of stress test Esophageal varices Thrombocytopenia Hematemesis Tobacco use Abnormal EKG Preop cardiovascular exam Low iron Restless legs Hypotension Hepatic encephalopathy Chronic abdominal pain Cirrhosis Alcoholism History of esophageal varices Cannabis hyperemesis syndrome concurrent with and due to cannabis abuse Thrombocytopenia Esophageal varices Ascites Wears glasses Marijuana use Arthritis Walker as ambulation aid History of GI bleed Gastric reflux Varices of esophagus determined by endoscopy Chronic anemia Alcoholic cirrhosis Intermittent generalized abdominal pain Chronic pain Biliary colic Alcoholism Alcohol intoxication in active alcoholic Pancytopenia Aortic aneurysm without rupture Diastolic dysfunction Hypomagnesemia Hypokalemia Esophageal varices in alcoholic cirrhosis Thrombocytopenia Peripheral arterial disease Chest pain PVD (peripheral vascular disease) History of smoking Obesity Benign essential hypertension Home Medications ?Medication ?Instructions ?Recorded ?Last Taken ?Type magnesium oxide 400 mg (241.3 mg 400 mg PO TID supplement 03/12/20 06/19/23 History magnesium) tablet potassium chloride 10 mEq 10 meq PO BID supplement 03/12/20 06/19/23 History tablet,extended release tramadol 50 mg tablet 50 mg PO Q6H PRN pain #20 tabs 12/17/20 06/19/23 Rx multivitamin 1 tab PO DAILY supplement 12/27/20 06/19/23 History pantoprazole 40 mg tablet,delayed 40 mg PO BID gerd 05/22/21 06/19/23 History release trazodone 100 mg tablet 100 mg PO QHS ANTIDEPRESSANT 07/18/21 06/18/23 History thiamine HCl (vitamin B1) 100 mg 100 mg PO DAILY vitamin #30 tabs 02/18/22 06/19/23 Rx tablet (Vitamin B-1) vitamin B complex 1 cap PO DAILY vitamin 03/07/22 06/19/23 History lactulose 10 gram/15 mL oral 30 g PO DAILY SEE DOCTOR 03/16/22 06/18/23 History solution spironolactone 50 mg tablet 50 mg PO BID HYPERTENSION 03/16/22 06/19/23 History midodrine 10 mg tablet 10 mg PO TID hypotension #270 tabs 04/17/22 06/19/23 Rx meclizine 12.5 mg tablet 12.5 mg PO TID PRN dizziness #90 10/07/22 06/19/23 Rx tabs furosemide 20 mg tablet (Lasix) 20 mg PO DAILY #90 tabs 10/28/22 Unknown Rx hydroxyzine HCl 25 mg tablet 25 mg PO QHS #30 tabs 03/07/23 06/18/23 Rx ondansetron 4 mg disintegrating 4 mg PO Q8H PRN Nausea 06/19/23 Unknown History tablet promethazine 25 mg tablet 25 mg PO Q6H PRN Nausea 06/19/23 06/19/23 History nadolol 20 mg tablet 10 mg (1/2 x 20 mg) PO BID #45 tabs 08/17/23 Unknown Rx rifaximin 550 mg tablet (Xifaxan) 550 mg PO BID HEPATIC 08/17/23 Unknown Rx ENCEPHALOPATHY #180 tabs Allergy/AdvReac Type Severity Reaction Status Date / Time No Known Allergies Allergy Verified 05/17/23 19:54 Family History Mother Cancer Father Lupus Surgical History History of abdominal aortic aneurysm repair (~2013) History of esophagogastroduodenoscopy (EGD) History of removal of cyst Social History household members: none Smoking Status: Light Smoker (<10/day) how long ago did patient quit smoking: was smoking 1ppd, now down to 1 ppw alcohol intake: current alcohol intake frequency: a few times a week substance use type: marijuana caffeine: No ROS ROS ED Constitutional Constitutional ED: Denies chills or fever(s) Eyes Eyes: Denies blurry vision or change in vision ENT ENT ED: Denies sore throat Cardiovascular Cardiovascular: Reports other Details: Negative syncope ; Denies chest pain Respiratory/Chest Respiratory/Chest: Denies cough or dyspnea Gastrointestinal Gastrointestinal: Denies abdominal pain, diarrhea, nausea or vomiting Musculoskeletal Musculoskeletal: Reports other Details: Positive right foot and ankle pain Integumentary Reports other Details: Positive right foot and ankle swelling ; Denies Abrasions Neurologic Neurologic: Reports weakness; Denies headache(s) or paresthesias Hematologic/Lymphatic Hematologic/Lymphatic: Denies easy bleeding or easy bruising EXAM Physical Exam Const Vital Signs: 09/16/23 21:28 09/17/23 00:37 09/17/23 00:39 Temperature 98.8 F 98.6 F Temperature Source Oral Pulse Rate 99 70 Respiratory Rate 22 H 18 Respiratory Effort Normal Respiratory Depth Normal Respiratory Pattern Normal Blood Pressure 121/62 H 159/75 H Blood Pressure Mean 81 103 Pulse Ox 92 100 Oxygen Delivery Method Room Air Positive well nourished and well developed General Appearance ED: well developed; Negative for pallor HEENT HEENT Narrative: Normocephalic atraumatic no signs of depressed or basilar skull fracture Eyes PERRL and EOMs intact bilaterally General Eye ED: Negative for scleral icterus Neck supple Neck Narrative: No bony deformity or step-off of the cervical spine no midline tenderness to palpation Chest Wall palpation of chest normal Chest Narrative: No bony deformity or crepitus noted Resp normal respiratory effort and clear to auscultation bilaterally Resp Narrative: Breath sounds are diminished throughout but overall clear to auscultation without signs of respiratory distress Cardio regular rate and regular rhythm GI normal to inspection, nondistended, normoactive bowel sounds, non-tender, non- distended and no masses GI Narrative: No voluntary guarding or rigidity or pulsatile mass No abrasions or ecchymosis across the abdominal wall Auscultation: normoactive bowel sounds Palpation: soft Back/Spine Back/Spine Narrative: No bony deformity or step-off of the thoracic or lumbar spine no midline tenderness to palpation Extremity Extremity Narrative: Pelvis is stable there is no shortening or external rotation of either lower extremity. Patient does have pain on palpation of the bilateral hips along the greater trochanters. No inguinal pain noted Right lower extremity is neurovascularly intact. However there is soft tissue swelling with ecchymosis along the medial malleolus of the right ankle and into the dorsal aspect of the right medial foot. No obvious bony deformity or joint effusion. Achilles tendon is intact and ankle ligaments are stable. Patient does have +1-2 pitting edema to the bilateral lower extremities that is equal and symmetric. Negative Homans' sign Neuro oriented x3, CN's II-XII intact bilaterally and no sensory deficits noted Sensorium / Orientation: alert Psych Psych Narrative: Patient has a depressed/flat affect Skin no rashes or lesions noted Skin Narrative: Soft tissue swelling ecchymosis of the right foot and ankle as documented above General Skin Exam: Negative for jaundice or pallor MDM MDM MDM Narrative Medical decision making narrative: Patient arrived to the ER with stable vitals and reported mechanical fall so I felt no need for cardiac or syncope workup. He also denies striking his head and he has no signs of underlying head injury so there is no need for a CT scan. With pain and swelling along the right ankle and foot and history of previous fracture there is concern for contusion versus sprain versus hardware fracture or periprosthetic fracture. Therefore x-rays were obtained. X-rays revealed no acute findings just persistent lucency consistent with a malunion or nonunion. Patient was informed of this and does state that the area never really healed which would correlate with the findings on today's x-ray. The patient has no report of fever or chills there is no redness and he states symptoms only occurred after the fall and therefore I have low concern for infection. After receiving pain control the patient was able to ambulate with a steady gait using his cane as he normally does and therefore as underlying trauma has been ruled out and he is not have findings to suggest an infectious process he is otherwise safe for discharge History & Record Review Discussion w/independent historian: Patient Radiography Diagnostic Testing: Clinical Impression(s) from Imaging Studies Ankle X-Ray 09/16/23 22:25 IMPRESSION: 1. Persistent lucency involving the lateral malleolar fracture. Probable malunion or nonunion. 2. Lucency around the syndesmosis screw probably due to motion. 3. No acute fracture. N.B. : The above Results were Read Back by Herve Colorado MD to Nahum Mckee MD, and understanding confirmed on 09/16/2023 23:35:54 (ET). Electronically Signed: Herve Colorado MD at 23:41 EDT , ADDENDUM: 09/16/23 2347 IMPRESSION: 1. Persistent lucency involving the lateral malleolar fracture. Probable malunion or nonunion. 2. Lucency around the syndesmosis screw probably due to motion. 3. No acute fracture. N.B. : The above Results were Read Back by Herve Colorado MD to Nahum Mckee MD, and understanding confirmed on 09/16/2023 23:35:54 (ET). Electronically Signed: Herve Colorado MD at 23:41 EDT , Foot X-Ray 09/16/23 22:25 IMPRESSION: 1. Persistent lucency of the medial malleolar and lateral malleolar fracture suggesting nonunion or malunion. 2. Soft tissue swelling around the ankle. 3. Increased lucency around the syndesmosis screw probably due to motion. There is also some lucency around the cancellous medial malleolar screws suggesting motion. 4. No acute fracture. Electronically Signed: Herve Colorado MD at 23:39 EDT , Pelvis X-Ray 09/16/23 22:45 IMPRESSION: No evidence of displaced pelvic fracture. Electronically Signed: Herve Colorado MD at 23:41 EDT , 1 view pelvis x-ray as interpreted by the emergency medicine physician reveals no acute fracture or dislocation Right foot and right ankle x-ray as interpreted by the emergency medicine physician reveals lucency along the lateral malleolus and syndesmosis screws most likely related to malunion/nonunion but no new or acute fracture. Discharge Plan Triage Chief Complaint: Fall ED Provider: Nahum Mckee Dx/Rx/DC Orders Clinical Impression: Accidental fall, Contusion of ankle, right, Benign essential hypertension, Alcoholic cirrhosis Instructions: ED Soft Tissue Contusion, ED Fall Prevention Prescriptions: No Action tramadol 50 mg tablet 50 mg PO Q6H PRN (Reason: pain) Qty: 20 0RF potassium chloride 10 MEQ tablet extended release 10 meq PO BID magnesium oxide 400 MG tablet 400 mg PO TID Rx Instructions: takes with meals multivitamin Tablet 1 tab PO DAILY trazodone 100 mg Tablet 100 mg PO QHS Patient Comments: PT UNSURE IF 100MG OR 150MG pantoprazole 40 mg tablet,delayed release (DR/EC) 40 mg PO BID vitamin B complex Capsule 1 cap PO DAILY spironolactone 50 mg tablet 50 mg PO BID lactulose 10 gram/15 mL solution 30 g PO DAILY promethazine 25 mg tablet 25 mg PO Q6H PRN (Reason: Nausea) ondansetron 4 mg tablet,disintegrating 4 mg PO Q8H PRN (Reason: Nausea) thiamine HCl (vitamin B1) [Vitamin B-1] 100 mg tablet 100 mg PO DAILY Qty: 30 5RF midodrine 10 mg tablet 10 mg PO TID Qty: 270 3RF Rx Instructions: do not give last dose of day after 6PM or within 4 hrs of bedtime meclizine 12.5 mg tablet 12.5 mg PO TID PRN (Reason: dizziness) Qty: 90 11RF furosemide [Lasix] 20 mg tablet 20 mg PO DAILY Qty: 90 3RF Patient Comments: PT STATES PHARMACY STOPPED GIVING THEM TO HIM, BUT HES UNAWARE IF HE RAN OUT OF REFILLS OR IF MD CANCELLED RX. hydroxyzine HCl 25 mg tablet 25 mg PO QHS Qty: 30 2RF nadolol 20 mg tablet 10 mg PO BID Qty: 45 3RF Patient Comments: PT UNSURE IF HE TAKES THIS MED OR NOT. Xifaxan 550 mg tablet 550 mg PO BID Qty: 180 3RF Primary Care Provider: Alice Cuellar Referrals: Alice Cuellar DO [Primary Care Provider] - Activity Restrictions/Additional Instructions: Your x-rays today showed no signs of trauma and just the remote fracture of your right ankle. The hardware is intact and in place without fracture to your screws. Follow-up with your family doctor for repeat evaluation and return to the ER should you have any further concerns Print Language: Dominican Disposition Disposition: Home, Self Care Discharge Date/Time: 09/17/23 00:41
[2023-09-17 00:37] VITALS: BP 159/75; PULSE 70; RESP 18; TEMP 37; O2SAT 100
== END 2023-09-17 00:41 | disposition home or self-care (01) ==
PROVIDERS: Emergency Provider Emergency Medicine; PCP Family Medicine; Visit Provider Emergency Medicine
DX: S90.01XA Contusion of right ankle, initial encounter (principal); K70.30 Alcoholic cirrhosis of liver without ascites; F12.90 Cannabis use, unspecified, uncomplicated; I10 Essential (primary) hypertension; F17.210 Nicotine dependence, cigarettes, uncomplicated; R29.6 Repeated falls; W19.XXXA Unspecified fall, initial encounter
CPT/HCPCS: 72170; 73610; 73630; 99282

== ENCOUNTER 2024-02-16 14:24 | Outpatient (CLI) | payer MEDICARE, MEDICAID, SELFPAY ==
[2024-02-16 15:05] LABS: Absolute Lymphocyte Count 1.32 X10^3/uL (0.83-4.51); Absolute Neutrophil Count 3.7 X10^3/uL (2.0-7.7); Basophil# 0.02 X10^3/uL; Basophil% 0.3 % (0-1); Eosinophil# 0.03 X10^3/uL; Eosinophils% 0.5 % (0-5); Hematocrit 41.7 % (40-54); Hemoglobin 14.3 g/dL (13.0-16.5); Lymphocyte # 1.32 X10^3/ul (0.83-4.51); Lymphocyte % 22.7 % (19-41); Mean Corp Hgb Conc 34.3 g/dL (32-36); Mean Corpuscular Hgb 33.9 pg (27.0-32.0); Mean Corpuscular Volume 98.8 fL (80-94); Mean Platelet Vol. 9.7 fl (6.2-12.0); NRBC Flagged by Analyzer 0 % (0-5); Neutrophil # 3.72 X10^3/uL (2.7-7.7); Neutrophil % 64.2 % (47-70); Platelet Count 105 K/mm3 (150-450); RBC Distribution Width CV 16.9 % (11.6-14.6); RBC Distribution Width SD 60.9 fl (35.1-43.9); Red Blood Count 4.22 M/mm3 (4.6-6.2); White Blood Count 5.8 K/mm3 (4.4-11.0)
[2024-02-16 15:24] LABS: International Normalized Ratio 1.7; Prothrombin Time (Protime)PT. 19.5 SECONDS (11.7-14.9)
[2024-02-16 15:35] LABS: ALB/GLOB Ratio 0.6 RATIO (0.9-2.4); AST(SGOT) 45 U/L (15-37); Alanine Aminotransfer ALT/SGPT 21 U/L (16-61); Albumin, Serum 1.9 g/dL (3.2-5.0); Alkaline Phosphatase 118 U/L (45-117); Anion Gap 6 (5-15); BUN 7 mg/dL (7-18); BUN/Creat Ratio 13.7 RATIO (10-20); Calcium,Total 7.9 mg/dL (8.5-10.1); Chloride 106 mmol/L (98-107); Cholesterol 78 mg/dL (200); Creatinine, Serum 0.51 mg/dL (0.70-1.30); EST Glomerular Filtration Rate 174 mL/min (>60); Est Glom Filt Rate - Afr Amer 211 mL/min (>60); Ferritin 96 ng/mL (26-388); Globulin 3.3 g/dL (2.2-4.2); Glucose 79 mg/dL (74-106); High Density Lipoprotein 17 mg/dL; Protein, Total 5.2 g/dL (6.4-8.2); Sodium Level 135 mmol/L (136-145); Triglycerides 106 mg/dL; Very Low Density Lipoprotein 21 mg/dL (5-40)
[2024-02-16 16:22] LABS: Hemoglobin A1c 4.3 % (3.8-5.6)
[2024-02-18 09:27] LABS: HIV - WCH Non-Reactive (Nonreactive); Hepatitis B Surface Antibody Non-Reactive
[2024-02-18 16:08] LABS: Anti-Mitochondrial AB 21.5 Units (0.0-20.0)
[2024-02-19 10:08] LABS: AFP, Tumor Marker 2.9 ng/mL (0.0-8.4); Anti-Smooth Muscle ABS 8 Units (0-19); Copper, Serum or Plasma 93 ug/dL (69-132)
== END 2024-02-16 23:59 | disposition home or self-care (01) ==
LOC: LAB 14:29
PROVIDERS: PCP Family Medicine; Referring Provider Internal Medicine; Visit Provider Internal Medicine
DX: I85.00 Esophageal varices without bleeding (principal); K70.30 Alcoholic cirrhosis of liver without ascites; E11.9 Type 2 diabetes mellitus without complications; D69.6 Thrombocytopenia, unspecified; Z78.9 Other specified health status
CPT/HCPCS: 36415; 80053; 80061; 82105; 82140; 82390; 82525; 82728; 83036; 83516; 85025; 85610; 86140; 86703; 86706